=== PATIENT | female | born 1955 | race Caucasian/White ===

== ENCOUNTER 2017-07-08 14:30 | Outpatient (RCR) | payer OTHER, SELFPAY | END 2017-07-08 14:31 | disposition home or self-care (01) | LOC: PT 14:30 | PROVIDERS: Visit Provider Anesthesiology Pain Medicine | DX: M71.30 Other bursal cyst, unspecified site (principal); M54.5 Low back pain | CPT/HCPCS: 97010; 97014; 97110; G0283 ==

== ENCOUNTER 2017-11-02 15:00 | Outpatient (RCR) | payer OTHER, SELFPAY | END 2017-11-02 15:01 | disposition home or self-care (01) | LOC: PT 15:00 | PROVIDERS: Visit Provider Anesthesiology Pain Medicine | DX: M46.96 Unspecified inflammatory spondylopathy, lumbar region (principal); M51.36 Other intervertebral disc degeneration, lumbar region | CPT/HCPCS: 97010; 97012; 97014; 97110; 97164; G0283 ==

== ENCOUNTER → 2017-11-28 15:07 | Outpatient (POV) | payer OTHER, SELFPAY | PROVIDERS: Visit Provider Physician Assistant | DX: Z00.00 Encounter for general adult medical examination without abnormal findings (principal) ==

== ENCOUNTER → 2018-10-24 13:06 | Outpatient (POV) | payer OTHER, SELFPAY | PROVIDERS: Visit Provider Dermatology | DX: Z00.00 Encounter for general adult medical examination without abnormal findings (principal) ==

== ENCOUNTER 2019-06-11 09:30 | Outpatient (RCR) | payer OTHER, SELFPAY | END 2019-06-11 09:35 | disposition home or self-care (01) | LOC: PT 09:30 | PROVIDERS: Visit Provider Internal Medicine | DX: M54.5 Low back pain (principal) | CPT/HCPCS: 97110; 97163 ==

== ENCOUNTER 2019-11-22 14:00 | Outpatient (RCR) | payer MEDICARE, SELFPAY | END 2019-11-22 14:05 | disposition home or self-care (01) | LOC: PT 14:00 | PROVIDERS: PCP Internal Medicine; Visit Provider Internal Medicine | DX: M54.5 Low back pain (principal) | CPT/HCPCS: 97010; 97012; 97014; 97110; 97163; G0283 ==

== ENCOUNTER 2019-12-10 17:27 | Emergency (ER) | payer MEDICARE, SELFPAY ==
[2019-12-10 17:36] VITALS: BP 156/80; PULSE 64; RESP 18; TEMP 36.6; O2SAT 100; BMI 25.7
[2019-12-10 18:26] LABS: Microscopic, Urine URINE MICROSCOPIC (MICROSCOPIC)
[2019-12-10 18:43] LABS: Appearance,Urine CLEAR (Clear); Bilirubin,Urine Negative (Negative); Blood, Urine Negative (Negative); Color,Urine YELLOW (Yellow); Glucose,Urine (UA) Negative (Negative); Ketones,Urine 1+ (Negative); Leukocyte Esterase,Urine Negative (Negative); Nitrate,Urine Negative (Negative); Protein,Urine Negative (Negative); Specific Gravity, Urine <= 1.005 (1.005-1.030); Urobilinogen,Urine 0.2 EU/dl (0.2)
--- NOTE | 2019-12-10 19:01 | PC.NURSE ---
per registration pt complained that doctor hasnt been in the room. rosendo fernandez talked to pt and told him she let the doctor know the pt wanted to be discharged.
--- NOTE | 2019-12-10 19:05 | PC.NURSE ---
Dr Goncalves at bedside
--- NOTE | 2019-12-10 19:13 | HMH.EDUROGF ---
ED Disposition Clinical Impression: Acute urinary retention Disposition: Home, Self-Care Condition on Discharge: Good Instructions: DI for Urinary Tract Infection (UTI), DI for Urinary Tract Infection in Children Referrals: Js Jack MD [Primary Care Provider] - - Critical Care Critical Care Time: No Attestation: On 12/10/19, the high probability of a clinically significant, sudden or life threatening deterioration of the following system(s) required my full and direct attention, intervention and personal management. The time I documented below is in addition to time spent performing reported procedures but includes the following listed in this critical care notation. Medical Decision Making - Medical Records Medical records reviewed: Yes: I reviewed the patient's medical records. - Boo Inquiry Pt receiving controlled substance: No Vital Signs: 12/10/19 17:36 Temperature 97.8 F Temperature Source Oral Pulse Rate [Right Radial] 64 Respiratory Rate 18 Blood Pressure [Right Arm] 156/80 H Blood Pressure Mean [Right Arm] 105 Blood Pressure Source [Right Arm] Automatic Cuff Blood Pressure Position [Right Arm] Sitting 02 Sat by Pulse Oximetry 100 Oxygen Delivery Method Room Air - Lab Data Lab results reviewed: Yes: I reviewed the patient's lab results. Lab Results 12/10/19 18:15: Urine Color Yellow, Urine Appearance Clear, Urine pH 7.0, Ur Specific [place] <= 1.005, Urine Protein Negative, Urine Glucose (UA) Negative, Urine Ketones 1+, Urine Blood Negative, Urine Nitrate Negative, Urine Bilirubin Negative, Urine Urobilinogen 0.2, Ur Leukocyte Esterase Negative Orders (Tests/Meds): ORDERS Category Date Time Status Urinalysis and Microscopic Stat Lab 12/10/19 18:15 Results - CT Data CT Scan: Other (Hip) Time Received: 18:00 Preliminary Findings: Normal/NAD, Abnormal Female Urogenital HPI - General Chief complaint: Urogenital-Female Stated complaint: BACK sURG THIS MORNING, CANNOT UNINEATE Time Seen by Provider: 12/10/19 19:11 Mode of Arrival: Ambulatory Source of Information: Patient Limitations: No Limitations Description of Symptoms (Recalled from ER Triage Doc. by RN): Pt reports she had back surgery this morning, states she was able to dribble when she was being discharged but has been unable to urinate since then. Pt reports has had this happen before and had to have a catheter for 2 weeks - History of Present Illness HPI Narrative: 64-year-old female presents the ED with an acute urinary retention. She had a surgical procedure this morning and she has not been able to use the bathroom since. She states she has had this reaction in the past. Patient denies any other acute issues. HPIPatient denies any recent cough or shortness of breath, patient denies any sore throat or headache, patient denies any loss of taste or smell, patient denies any malaise or fatigue, patient denies any abdominal pain nausea vomiting or diarrhea. : no - Related Data Home Medications Medication Instructions Recorded Confirmed Aspirin [Aspir 81] 81 mg PO DAILY 04/21/19 04/21/19 Esomeprazole Magnesium [Nexium] 20 mg PO TID 04/21/19 04/21/19 Estradiol/Levonorgestrel [Climara 1 each TD WEEKLY 04/21/19 04/21/19 Pro Patch] Linaclotide [Linzess] 145 mcg PO DAILY 04/21/19 04/21/19 Losartan Potassium [Cozaar 50mg 50 mg PO DAILY 04/21/19 04/21/19 Tablets] Metoprolol Succinate 50 mg PO DAILY 04/21/19 04/21/19 Rosuvastatin Calcium 20 mg PO DAILY 04/21/19 04/21/19 hydrOXYzine HCL [Hydroxyzine HCl] 25 mg PO HS 04/21/19 04/21/19 Allergies Allergy/AdvReac Type Severity Reaction Status Date / Time eszopiclone [From Lunesta] Allergy Verified 04/21/19 10:34 [facility] History - Hepatitis A Screen Drug use history?: No High risk sexual behaviors?: No History of sexually transmitted infection?: No Currently employed?: No Childcare worker?: No Do you have indoor plumbin
[2019-12-10 19:17] LABS: Bacteria,Urine Trace /lpf; Squamous Epithelial Cell,Urine Occasional #/hpf (0-5); WBC,Urine Occasional #/hpf (0-3)
[2019-12-10 19:21] VITALS: BP 147/83; PULSE 62; RESP 16; TEMP 36.6; O2SAT 100
--- NOTE | 2019-12-10 19:24 | PC.NURSE ---
pt and instructed on norton catheter care and how to properly empty it at home. pt and also educated on how to properly switch to a leg bag if needed and how to remove the catheter after 5 days. pt instructed to return to ER if she has any worsening pain or needs assistance taking norton out.
== END 2019-12-10 19:26 | disposition home or self-care (01) ==
PROVIDERS: Emergency Provider Family Medicine; PCP Internal Medicine
DX: R33.0 Drug induced retention of urine (principal); Z88.8 Allergy status to other drugs, medicaments and biological substances
CPT/HCPCS: 81001; 99283; 99284

== ENCOUNTER → 2020-01-01 13:52 | Outpatient (POV) | payer MEDICARE, SELFPAY | PROVIDERS: PCP Internal Medicine; Visit Provider Dermatology | DX: Z00.00 Encounter for general adult medical examination without abnormal findings (principal) ==

== ENCOUNTER 2020-05-20 14:00 | Outpatient (RCR) | payer MEDICARE, SELFPAY | END 2020-05-20 14:05 | disposition home or self-care (01) | LOC: PT 14:00 | PROVIDERS: PCP Internal Medicine; Visit Provider Physician Assistant | DX: M51.16 Intervertebral disc disorders with radiculopathy, lumbar region (principal); M47.816 Spondylosis without myelopathy or radiculopathy, lumbar region | CPT/HCPCS: 20560; 97010; 97014; 97035; 97110; 97113; 97163; 97164; G0283 ==

== ENCOUNTER → 2020-09-30 10:40 | Outpatient (POV) | payer MEDICARE, SELFPAY | PROVIDERS: Visit Provider Dermatology | DX: Z00.00 Encounter for general adult medical examination without abnormal findings (principal) ==

== ENCOUNTER 2020-12-04 15:00 | Outpatient (RCR) | payer MEDICARE, SELFPAY | END 2020-12-04 15:05 | disposition home or self-care (01) | LOC: PT 15:00 | PROVIDERS: PCP Internal Medicine; Visit Provider Anesthesiology Pain Medicine | DX: M51.36 Other intervertebral disc degeneration, lumbar region (principal); M54.5 Low back pain | CPT/HCPCS: 97110; 97163; 97164 ==

== ENCOUNTER 2021-03-26 15:00 | Outpatient (RCR) | payer MEDICARE, SELFPAY ==
--- NOTE | 2021-03-26 15:49 | HMH.PTOPEV ---
PT Outpatient Evaluation Rehab PT Outpatient Evaluation Start: 01/22/21 14:59 Freq: Status: Active Protocol: Document 01/22/21 15:14 [email or web address] (Rec: 01/22/21 16:36 SAMI [id number]) Electronically Signed By Payam Ardon PT 01/22/21 15:14 Outpatient Therapy Subjective History Subjective History This is the initial Physical Therapy evaluation for Bianca Berrios. Pt is a 65 y/o female referred to PT for lumbar strengthening and pain relief s/p PRP injection. Pt reports he injection was ~ 16 of January. Pt reports she was to begin therapy on Tuesday but was unable to get in, and had severe nausea and vomiting on tuesday, which caused delay in eval until today. Pt has long history of surgical intervention in lumbar area including cyst removal and micro-discectomy. Pt has had epidural, steroid and now PRP injxn. Chief Complaint Pain,Stiff,Weakness Symptom Type Ache,Sharp,Burning,Numbness Symptoms Relieved By Rest/Positioning Symptoms Aggravated By Standing,Physical Activity Current Functional Limitations Housework,Standing,Recreation Activity,Walking Level of pain today (0-10) 4 Pain scale - at its best (0-10) 4 Pain scale - at its worst (0-10) 8 Lumbopelvic Eval Posture Lumbar Spine Posture Standing Position Flattened Assistive device Assistive Devices None / NA Palapation tenderness bilateral lumbar spinal tenderness Yes paraspinal tenderness Yes buttock tenderness Yes Lumbar/Sacral Palpation Findings Tenderness,Spasm,Trigger Point Range of Motion Lumbar Spine Active Flexion Range of 80 Motion (degrees) Lumbar Spine Active Extension Range of 10 Motion (degrees) Left Lumbar Spine Lateral Flexion Active 0 Range of Motion (degrees) Right Lumbar Spine Lateral Flexion 0 Active Range of Motion (degrees) Lumbar Spine ROM Limitations Soft Tissue Tightness Special Tests Lumbar Spine Screen Positive Hip Piriformis Test Positive Right Sciatic Nerve Tension Test Positive Left,Positive Right Unilateral Straight Leg Raise (Lasegue) Positive Left,Positive Right Test Lumbar Long [place] Distraction Test/Manual Positive Traction O
== END 2021-03-26 15:05 | disposition home or self-care (01) ==
LOC: PT 15:00
PROVIDERS: PCP Internal Medicine; Visit Provider Anesthesiology Pain Medicine
DX: M47.817 Spondylosis without myelopathy or radiculopathy, lumbosacral region (principal); M48.062 Spinal stenosis, lumbar region with neurogenic claudication; M51.9 Unspecified thoracic, thoracolumbar and lumbosacral intervertebral disc disorder
CPT/HCPCS: 20560; 20561; 97010; 97014; 97033; 97035; 97110; 97140; 97163; 97164; 97535; G0283

== ENCOUNTER → 2021-04-02 19:35 | Outpatient (CLI) | payer MEDICARE, SELFPAY | PROVIDERS: Visit Provider Nurse Practitioner Family | DX: Z20.822 Contact with and (suspected) exposure to COVID-19 (principal) | CPT/HCPCS: C9803; U0003; U0005 ==

== ENCOUNTER → 2021-08-28 13:43 | Outpatient (CLI) | payer MEDICARE, SELFPAY ==
--- NOTE | 2021-08-28 13:51 | CT_ITS ---
FINAL REPORT TECHNIQUE: Axial images were obtained from the lung apex to the mid abdomen by computed tomography utilizing a high-resolution protocol. Coronal reformatted images were obtained. This study was performed with techniques to keep radiation doses as low as reasonably achievable, (ALARA). Individualized dose reduction techniques using automated exposure control or adjustment of mA and/or kV according to the patient''s size were employed. CLINICAL HISTORY: COUGH, chronic, non smoker FINDINGS: There is no axillary mass or adenopathy. There are numerous partially calcified and enlarged hilar and mediastinal lymph nodes which is likely sequela of prior granulomatous disease. The esophagus is air-filled of uncertain significance but may represent reflux. Heart size is normal. There is no pericardial or pleural effusion. Limited images of the upper abdomen demonstrate multiple calcified granulomas in the liver and spleen. There are multiple small bilateral pulmonary nodules. Some of these are ground-glass nodules. There is a ground-glass nodule in the lateral right upper lobe on image 17. There is a 4 mm nodule in the left lower lobe on image 27. There are multiple other small nodules. There are mild changes of emphysema. There is no evidence of interstitial lung disease. There is no evidence of bronchiectasis. There is mild diffuse bronchial wall thickening consistent with bronchitis. IMPRESSION: Diffuse bronchial wall thickening consistent with bronchitis. Multiple calcified hilar and mediastinal lymph nodes, likely sequela of prior granulomatous disease. Multiple small pulmonary nodules, favor benign. Consider follow-up CT in 12 months. Reviewed, Interpreted and Dictated by Yuniel Williamson III, MD Transcribed by Lizy Morgan Authenticated by Yuniel Williamson III, MD on 08/28/2021 03:28:14 PM [facility]
[2021-08-28 14:48] LABS: Basophils % 0.6 % (0.1-2.0); Eosinophils # 0.1 K/mm3 (0.0-0.4); Eosinophils % 1.1 % (0.1-12.0); Hematocrit 32.4 % (37.0-47.0); Lymphocytes # 1.2 K/mm3 (0.7-4.5); Lymphocytes % 20.6 % (10-50); Mean Corpuscular Hemoglobin 23.8 pg (27.0-31.2); Mean Platelet Volume 8.2 fl (7.4-10.4); Monocytes # 0.4 K/mm3 (0.1-1.0); Monocytes % 6.4 % (1.7-9.3); Neutrophils # 4.3 K/mm3 (1.8-7.8); Neutrophils % 71.2 % (37.0-80.0); Platelet Count 339 K/mm3 (142-424); Red Blood Count 4.21 M/mm3 (4.20-5.40); Red Cell Distribution Width 17.2 % (11.5-17.5)
[2021-08-28 16:44] LABS: Iron 109 ug/dL (37-170)
[2021-08-28 16:53] LABS: Total Iron Binding Capacity 411 ug/dL (265-497)
== END ==
PROVIDERS: Nurse Practitioner Family; PCP Internal Medicine; Visit Provider Internal Medicine
DX: E83.10 Disorder of iron metabolism, unspecified (principal); G25.81 Restless legs syndrome; G47.33 Obstructive sleep apnea (adult) (pediatric)
CPT/HCPCS: 36415; 71250; 83540; 83550; 85025

== ENCOUNTER → 2021-12-01 12:48 | Outpatient (CLI) | payer MEDICARE, SELFPAY ==
--- NOTE | 2021-12-01 12:49 | FL_ITS ---
FINAL REPORT CLINICAL HISTORY: 1.15 fluoro time aspiration eveluation FINDINGS: MODIFIED BARIUM SWALLOW History: Dysphagia. FINDINGS: Fluoroscopy was provided for the speech pathologist to evaluate the swallowing mechanism. The patient was given several different consistencies of barium while the swallow was visualized fluoroscopically. The report of the speech pathologist should be consulted prior to making dietary decisions. FLUOROSCOPY TIME: 1 minute 15 seconds of fluoroscopy time was utilized. 12 cine runs were obtained IMPRESSION: Modified barium swallow under fluoroscopic guidance. Please see the report of the speech pathologist for more detail. Films reviewed , interpreted and dictated by Dr. Williamson. Transcribed by Kenn Murcia PA-C. Reviewed, Interpreted and Dictated by Yuniel [place] III, MD Transcribed by HERMELINDO Hooks Authenticated and [facility]
--- NOTE | 2021-12-01 13:39 | HMH.SLMBS2 ---
Speech & Language Evaluation Speech/Language Mod Barium Swallow Start: 12/01/21 13:26 Freq: once Status: Complete Protocol: Document 12/01/21 13:26 RITA (Rec: 12/01/21 13:38 CWADRIAN [id number]) General Information General Current Food Consistency Regular,Thin Liquids Dentition Good Dentition Oxygen Status Room Air Facial Symmetry Symmetrical Ability to Follow Directions Excellent Communication Ability No Impairment MBS Recommendations Diet Dietary Recommendations Regular,Thin Liquids Treatment/Strategies Strategy/Precaution Recommend Sitting Upright (90 deg),Small Bites and Sips,Alternate Liquids/Solids Referrals/Other Recommended Referrals GI Consult Mod Barium Swallow Impressions Summary and Impressions Oral Phase Impression No Impairment (WFL) Oral Phase Summary Adequate mastication noted with all consistencies trialed . No oral residue was present and patient demonstrated oral transit that is WFL. Pharyngeal Phase Impression Minimal Impairment Pharyngeal Phase Summary No aspiration or penetration was present on the study. Minimal diffuse pharyngeal residue was noted with thin liquids, however, patient is able to clear material independently with subsequent swallows. Pt was coughing throughout the study with and without PO trials, and is unrelated to swallow function. Hyolanryngeal movement is WFL . Speech/Language MBS Assessment/Goals/Plan Assessment Date of Evaluation: 12/01/21 Evaluation Type Initial Certification Assessment/Problems Pt coughing while eating. Does Patient Qualify for Service No Qualify/Failure Comment Based on the results of the MBSS, pt presents with an oropharyngeal swallow that is WFL. No further skilled speech therapy services are warranted at this time. Recommendations PHYSICIAN CERTIFICATION: The specified therapy services are required, authorized, and reviewed every 30 days. Diet Recommendations Normal Liquid Type Recommendations Normal/Thin SL Swallow Guidelines Alt bite w/sip thru meal, Reflux precautions Dysp
== END ==
PROVIDERS: PCP Internal Medicine; Visit Provider Internal Medicine Pulmonary Disease
DX: R05.3 Chronic cough (principal)
CPT/HCPCS: 70371; 92611

== ENCOUNTER → 2021-12-21 13:46 | Outpatient (CLI) | payer MEDICARE, SELFPAY ==
--- NOTE | 2021-12-21 13:50 | XR_ITS ---
FINAL REPORT CLINICAL HISTORY: pain x 1 yr, NKT FINDINGS: 3 views of the left foot were obtained. There is no acute fracture or dislocation. There is an accessory navicular. There are moderate hypertrophic changes at the 1st MTP joint. The soft tissues are unremarkable. IMPRESSION: No acute process. Reviewed, Interpreted and Dictated by Hans Jennings MD Transcribed by Jairo Dallas Authenticated and . [facility]
--- NOTE | 2021-12-21 13:50 | XR_ITS ---
FINAL REPORT CLINICAL HISTORY: pain x 1 yr, NKT. FINDINGS: 3 views of the right foot were obtained. There is no acute fracture or dislocation. There is an accessory navicular. There are moderate hypertrophic changes at the 1st MTP joint. The soft tissues are unremarkable. IMPRESSION: No acute process. Reviewed, Interpreted and Dictated by Hans Jennings MD Transcribed by Jairo Dallas Authenticated and [facility]
== END ==
PROVIDERS: PCP Internal Medicine; Visit Provider Podiatrist
DX: M79.672 Pain in left foot (principal); M79.671 Pain in right foot
CPT/HCPCS: 73630

== ENCOUNTER → 2021-12-30 20:19 | Outpatient (CLI) | payer MEDICARE, SELFPAY | PROVIDERS: PCP Internal Medicine; Visit Provider Nurse Practitioner Family | DX: G47.33 Obstructive sleep apnea (adult) (pediatric) (principal); G25.81 Restless legs syndrome; G47.34 Idiopathic sleep related nonobstructive alveolar hypoventilation; R05.3 Chronic cough | CPT/HCPCS: 95811 ==

== ENCOUNTER → 2022-01-19 12:59 | Outpatient (POV) | payer MEDICARE, SELFPAY | PROVIDERS: Visit Provider Dermatology | DX: Z00.00 Encounter for general adult medical examination without abnormal findings (principal) ==

== ENCOUNTER → 2022-01-29 09:08 | Outpatient (CLI) | payer MEDICARE, SELFPAY ==
--- NOTE | 2022-01-29 09:13 | XR_ITS ---
FINAL REPORT CLINICAL HISTORY: left shoulder pain. no trauma FINDINGS: LEFT SHOULDER Three views demonstrate no acute fracture or dislocation. There are mild degenerative changes of the acromioclavicular and the glenohumeral joints. The visualized bony structures are well aligned. No soft tissue abnormality is seen. IMPRESSION: Mild degenerative change. Reviewed, Interpreted and Dictated by Yuniel Williamson III, MD Transcribed by Jairo Dallas Authenticated and [facility]
== END ==
PROVIDERS: PCP Internal Medicine; Visit Provider Orthopaedic Surgery
DX: M25.512 Pain in left shoulder (principal)
CPT/HCPCS: 73030

== ENCOUNTER 2022-02-16 14:00 | Outpatient (RCR) | payer MEDICARE, SELFPAY ==
--- NOTE | 2022-02-01 11:28 | HMH.OTOPEV ---
OT Inpatient Evaluation Rehab OT Outpatient Eval Start: 02/01/22 10:56 Freq: Status: Active Protocol: Document 02/01/22 10:56 SYDNI (Rec: 02/01/22 11:28 SYDNI [id number]) Electronically Signed By Diya Urrutia OT 02/01/22 10:56 Outpatient Therapy Subjective History Subjective History 66 year old female referred to skilled OP OT services for left shoulder pain. Patient stated to have pain in the left shoulder for the past 3-4 weeks with it progressively getting worse. X-ray completed on 01/29/22 wtih mild degenerative changes noted. EMG eval for lumbar radiculopathy is planned 2* to having pain in R hip as well. No shot injections to left shoulder at this time. Chief Complaint Pain,Weakness Symptom Type Ache,Throb Symptoms Relieved By OTC Meds Symptoms Aggravated By Physical Activity Prior Functional Limitations None Current Functional Limitations Reaching,Lifting,Recreation Activity Symptom Description Constant and Continuous Level of pain today (0-10) 0 Pain scale - at its best (0-10) 0 Pain scale - at its worst (0-10) 7 Shoulder/Elbow Eval Shoulder Objective Measurements Shoulder ROM Left Shoulder Abduction Active Range of 78 Motion (degrees) Shoulder Flexion Active Range of Motion 130 (degrees) Query Text: Shoulder External Rotation Active Range 40 of Motion (degrees) Shoulder Internal Rotation Active Range 50 of Motion (degrees) pain with active ROM shoulder exam left standard Shoulder MMT Shoulder Abduction Strength Grade 3- Fair- Shoulder Extension Strength Grade 3- Fair- Shoulder Flexion Strength Grade 3- Fair- Shoulder Horizontal Abduction Strength 3- Fair- Grade Shoulder Horizontal Adduction Strength 3- Fair- Grade Infraspinatus/Teres Minor Strength Grade 3- Fair- Shoulder External Rotation Strength 3- Fair- Grade Shoulder Internal Rotation Strength 3- Fair- Grade Shoulder Special Tests impingement sign present shoulder exam left standard Shoulder Empty Can (Supraspinatus) Test Positive Left Shoulder [place]-Kahlil Impingement Positive Left Test Elbow Objective Measurements OT Outpatient Assessment Impairm
== END 2022-02-16 14:05 | disposition home or self-care (01) ==
LOC: OT 14:00
PROVIDERS: Visit Provider Orthopaedic Surgery
DX: M25.512 Pain in left shoulder (principal)
CPT/HCPCS: 97010; 97014; 97035; 97140; 97165; 97530; G0283

== ENCOUNTER → 2022-04-15 15:27 | Outpatient (CLI) | payer MEDICARE, SELFPAY ==
--- NOTE | 2022-04-15 15:27 | MR_ITS ---
PROCEDURE INFORMATION: Exam: MR Left Upper Extremity Joint Without Contrast; Shoulder Exam date and time: 04/15/2022 4:04 PM Age: 66 years old Clinical indication: Pain; Shoulder; Left; Additional info: Lt shoulder pain. Limited rom. No injury TECHNIQUE: Imaging protocol: Magnetic resonance imaging of the Left upper extremity without contrast. Exam focused on the shoulder. COMPARISON: CR XR SHOULDER LT MIN 2V 01/29/2022 9:21 AM FINDINGS: Bones and cartilage: The undersurface of the acromion has a normal curvature, consistent with a type II acromion. There is no acute fracture or dislocation. No aggressive bone lesions are present. Benign subchondral cysts involve the humeral head. There is no acute fracture or dislocation. No aggressive bone lesions are present. Joint spaces: There is mild primary osteoarthritis of the acromioclavicular joint. A mild effusion involves the glenohumeral joint. Joint fluid extends through the full thickness rotator cuff tear into the subacromial-subdeltoid bursa. Glenoid labrum: No convincing tear on this non-arthrographic study. Supraspinatus tendon: High-grade partial-thickness tearing involves the articular surface of the supraspinatus tendon. Deep fibers are delaminated and retracted approximately 2.6 cm There is severe tendinosis of the intact remaining bursal fibers. Infraspinatus tendon: A full-thickness tear involves the superior aspect of the infraspinatus tendon. The tear measures 9 mm anterior to posterior with 1.7 cm retraction from the insertion. Moderate tendinosis involves the remainder of the infraspinatus tendon. Subscapularis tendon: Moderate tendinosis involves the subscapularis tendon. Teres minor tendon: No tear or significant tendinosis involves the teres minor tendon. Tendon of biceps brachii: Moderate tendinosis involves the intra-articular portion of the long head of the biceps tendon. Glenohumeral ligaments: Unremarkable as visualized. Muscles: The rotator cuff musculature demonstrates no significant edema or atrophy. Soft tissues: No focal fluid collection or suspicious mass. IMPRESSION: 1. Full-thickness infraspinatus tendon tear measuring 9 mm in diameter with 1.7 cm retraction and no muscle atrophy. 2. High-grade partial-thickness tearing of the supraspinatus tendon articular surface with retraction of the delaminated deep fibers approximately 2.6 cm. 3. Moderate tendinosis of the subscapularis and long head of the biceps tendons. 4. Mild primary osteoarthritis of the acromioclavicular joint.
--- NOTE | 2022-04-15 15:27 | MR_ITS ---
PROCEDURE INFORMATION: Exam: MR Lumbar Spine Without Contrast Exam date and time: 04/15/2022 4:04 PM Age: 66 years old Clinical indication: Low back pain; Additional info: Back pain. With pain down right leg. TECHNIQUE: Imaging protocol: Magnetic resonance imaging of the lumbar spine without contrast. COMPARISON: CT ABDOMEN PELVIS W CON 04/21/2019 12:18 PM FINDINGS: conus terminates at the mid aspect of L1. Soft tissues are unremarkable. Annular disk bulge and/or protrusions diffusely 15 degree levocurvature centered at L3 Neural foraminal narrowing L3-L4 on the right greater than left Reactive degenerative endplate changes L3-L4 and L2-L3 Marrow edema L3-L4 and L2-L3 T11-T12: Central canal and neural foramina are normal. T12-L1: Central canal and neural foramina are normal. L1-L2: Broad-based annular disc bulge effaces the anterior aspect of the thecal sac mildly so. Central canal is normal. L2-L3: Broad-based annular disc bulge effaces the anterior aspect of the thecal sac mildly so. Central canal and neural foramina are normal. L3-L4: Moderate degree of central canal narrowing secondary to facet hypertrophic changes, ligamentum flavum hypertrophic changes, and a broad-based annular bulge. Disc lateralizes to the right greater than left. Neural foraminal narrowing bilaterally L4-L5: Broad-based annular disc bulge effaces the anterior aspect of the thecal sac mildly so. Central canal and neural foramina are normal. L5-S1: Central canal and neural foramina are normal. IMPRESSION: Multilevel degenerative disc disease including moderate central canal narrowing L3-L4. Levoscoliosis 15 degrees centered at L3. Reactive endplate changes/marrow edema L3-L4 and L2-L3
== END ==
PROVIDERS: PCP Internal Medicine; Visit Provider Orthopaedic Surgery
DX: M19.012 Primary osteoarthritis, left shoulder (principal); M54.16 Radiculopathy, lumbar region; M54.50 Low back pain, unspecified
CPT/HCPCS: 72148; 73221; 76376

== ENCOUNTER → 2022-08-20 06:15 | Outpatient (CLI) | payer MEDICARE, SELFPAY ==
--- NOTE | 2022-08-20 06:34 | CT_ITS ---
FINAL REPORT TECHNIQUE: Thin section axial CT images of the facial bones and sinuses were obtained without contrast. Coronal reformatted images were also obtained.This study was performed with techniques to keep radiation doses as low as reasonably achievable, (ALARA). Individualized dose reduction techniques using automated exposure control or adjustment of mA and/or kV according to the patient''''s size were employed. CLINICAL HISTORY: CHRONIC SINUSITIS FINDINGS: There is bilateral sphenoid sinus mucosal thickening. No fluid levels are identified. The ostiomeatal units have an unremarkable appearance. The nasal septum is in the midline. No fracture or acute bony abnormality is identified. IMPRESSION: Mucosal thickening of the sphenoid sinuses, otherwise unremarkable exam. Reviewed, Interpreted and Dictated by Yuniel [place] III, MD Transcribed by Carolina Milligan Authenticated and [facility]
== END ==
PROVIDERS: PCP Internal Medicine; Visit Provider Internal Medicine
DX: J32.9 Chronic sinusitis, unspecified (principal)
CPT/HCPCS: 70486

== ENCOUNTER → 2022-09-06 11:52 | Outpatient (CLI) | payer MEDICARE, SELFPAY ==
[2022-09-06 12:27] LABS: Anion Gap 7.3 mEq/L (5-15); Aspartate Amino Transferase 35 U/L (14-36); Blood Urea Nitrogen 16 mg/dl (7-17); Calcium 8.5 mg/dl (8.4-10.2); Carbon Dioxide 32 mmol/L (22.0-30.0); Chloride 95 mmol/L (98-107); Estimated Glomerular Filt Rate 83 ml/min (>60); GFR (African American) 101 ML/MIN (>60); Glucose 100 mg/dl (74-100); Potassium 4.3 mmoL/L (3.5-5.1); Sodium 130 mmol/L (136-145)
[2022-09-06 12:56] LABS: Iron 39 ug/dL (37-170)
[2022-09-06 13:05] LABS: Total Iron Binding Capacity 309 ug/dL (265-497)
[2022-09-06 13:33] LABS: Ferritin 13.6 ng/ml (11.1-264)
[2022-09-14 05:14] LABS: Myeloperoxidase Antibody <0.2
== END ==
PROVIDERS: PCP Internal Medicine; Visit Provider Internal Medicine
DX: E61.1 Iron deficiency (principal); R89.9 Unspecified abnormal finding in specimens from other organs, systems and tissues; I10 Essential (primary) hypertension
CPT/HCPCS: 36415; 80048; 82728; 83520; 83540; 83550; 84450

== ENCOUNTER → 2022-10-04 13:51 | Outpatient (CLI) | payer MEDICARE, SELFPAY ==
[2022-10-04 17:00] LABS: Chloride 99 mmol/L (98-107); Potassium 4.3 mmoL/L (3.5-5.1); Sodium 132 mmol/L (136-145)
[2022-10-04 17:03] LABS: Blood Urea Nitrogen 15 mg/dl (7-17); Estimated Glomerular Filt Rate 83 ml/min (>60); GFR (African American) 101 ML/MIN (>60); Iron 51 ug/dL (37-170)
[2022-10-04 17:04] LABS: Anion Gap 9.3 mEq/L (5-15); Calcium 9.1 mg/dl (8.4-10.2); Carbon Dioxide 28 mmol/L (22.0-30.0); Glucose 92 mg/dl (74-100)
[2022-10-04 17:13] LABS: Total Iron Binding Capacity 294 ug/dL (265-497)
== END ==
PROVIDERS: PCP Internal Medicine; Visit Provider Internal Medicine
DX: E87.1 Hypo-osmolality and hyponatremia (principal); D64.9 Anemia, unspecified
CPT/HCPCS: 36415; 80048; 83540; 83550

== ENCOUNTER → 2022-11-23 11:46 | Outpatient (POV) | payer MEDICARE, SELFPAY | PROVIDERS: Visit Provider Dermatology | DX: Z00.00 Encounter for general adult medical examination without abnormal findings (principal) ==

== ENCOUNTER 2023-01-18 15:00 | Outpatient (RCR) | payer MEDICARE, SELFPAY | END 2023-01-18 15:05 | disposition home or self-care (01) | LOC: OT 15:00 | PROVIDERS: PCP Internal Medicine; Visit Provider Orthopaedic Surgery | DX: M75.22 Bicipital tendinitis, left shoulder (principal) | CPT/HCPCS: 97010; 97014; 97035; 97110; 97140; 97164; 97165; 97530; G0283 ==

== ENCOUNTER → 2023-03-29 09:55 | Outpatient (POV) | payer MEDICARE, SELFPAY | PROVIDERS: Visit Provider Dermatology | DX: Z00.00 Encounter for general adult medical examination without abnormal findings (principal) ==

== ENCOUNTER 2023-04-05 10:00 | Outpatient (RCR) | payer MEDICARE, SELFPAY | END 2023-04-05 10:05 | disposition home or self-care (01) | LOC: PT 10:00 | PROVIDERS: PCP Internal Medicine; Visit Provider Neurological Surgery | DX: M54.50 Low back pain, unspecified (principal); M54.9 Dorsalgia, unspecified; G89.29 Other chronic pain | CPT/HCPCS: 97010; 97014; 97035; 97110; 97140; 97163; 97164; 97530; 97535; G0283 ==

== ENCOUNTER → 2023-04-06 11:40 | Outpatient (CLI) | payer MEDICARE, SELFPAY ==
--- NOTE | 2023-04-06 11:46 | XR_ITS ---
FINAL REPORT CLINICAL HISTORY: CHRONIC COUGH COMPARISON: 05/01/2019 FINDINGS: Two views of the chest were obtained. The heart size and pulmonary vascularity are within normal limits. The mediastinum is normal. No acute pulmonary abnormality is identified. There is no pneumothorax. The bony thorax is intact. IMPRESSION: No active cardiopulmonary disease. Reviewed, Interpreted and Dictated by Yuniel Williamson III, MD Transcribed by Caro Pat Authenticated and [facility]
== END ==
PROVIDERS: PCP Internal Medicine; Visit Provider Internal Medicine
DX: R05.3 Chronic cough (principal)
CPT/HCPCS: 71046

== ENCOUNTER 2023-04-06 12:06 | Emergency (ER) | payer MEDICARE, SELFPAY ==
[2023-04-06 12:35] VITALS: BP 146/97; PULSE 73; RESP 18; TEMP 37.1; O2SAT 98; BMI 25.0
[2023-04-06 12:39] LABS: UTC Strep Screen (Rapid) Negative (Negative)
[2023-04-06 12:40] LABS: UTC Influenza A Antigen Negative (Negative); UTC Influenza B Antigen Negative (Negative)
--- NOTE | 2023-04-06 12:43 | EXP.UTC ---
Discharge Plan Disposition Patient Disposition: Home, Self-Care Condition: Good Prescriptions Prescriptions: New levofloxacin [levofloxacin] 500 mg tablet 500 mg PO DAILY Qty: 7 0RF methylprednisolone 4 mg Tablets,Dose Pack 4 mg PO DIRECTED Qty: 21 0RF benzonatate [benzonatate] 100 mg capsule 100 mg PO TIDP PRN (Reason: Cough) Qty: 30 0RF No Action metoprolol succinate 25 mg tablet extended release 24 hr 25 mg PO DAILY melatonin 5 mg capsule 5 mg PO HS multivitamin with iron [Daily Vitamin with Iron] Tablet 2 tab PO .COMPLEX Rx Instructions: 2 orally every other day; flinstone estradiol 0.05 mg/24 hr patch weekly 1 patch TP WEEKLY Patient Comments: APPLY 1 PATCH TO SKIN EVERY WEEK naproxen sodium [Aleve] 220 mg tablet 220 mg PO BID PRN Horizant 600 mg tablet extended release 600 mg PO HS Qty: 90 1RF Rx Instructions: administer daily at approximately 5 PM with food/evening meal rosuvastatin 20 MG tablet 20 mg PO DAILY Patient Comments: TAKE 1 TABLET BY MOUTH EVERY DAY AT BEDTIME esomeprazole magnesium 20 mg capsule,delayed release(DR/EC) See Rx Instructions PO .COMPLEX Rx Instructions: orally; 2 in the am,one at hs pantoprazole 40 mg tablet,delayed release (DR/EC) 40 mg PO DAILY Patient Comments: TAKE 1 TABLET BY MOUTH EVERY DAY mirtazapine 15 mg tablet 15 mg PO DAILY duloxetine 60 mg capsule,delayed release(DR/EC) 60 mg PO DAILY Patient Comments: TAKE 1 CAPSULE BY MOUTH EVERY DAY Referrals Follow up/Referrals: Js Jack MD [Primary Care Provider] - See instructions Activity Restrictions/Add. Instructions Additional Instructions/Restrictions: Drink plenty of fluids. Take tylenol or ibuprofen for pain or fever. Take the medications as directed. Follow up with your regular doctor within the next 48 hours. GO TO THE ER FOR ANY WORSENING SYMPTOMS Don't start the oral steroids until tomorrow, since you had the shot here today. Clinical Impressions Clinical Impression: Pneumonia Instructions Patient Instructions: Pneumonia-Adult Discharge ED Provider: Jorje Charles [facility] [place], [place] HPI General Stated complaint: cough, chest congestion, clark, fatigue Time Seen by Provider: 04/06/23 12:43 History of Present Illness Provider Complaint: She states that for the past 5 days she has had chest and sinus congestion. She came in today because she has had worsening fatigue. Related Data Home Medications Medication Instructions Recorded Confirmed rosuvastatin 20 mg tablet 20 mg PO DAILY Cholesterol 04/21/19 04/06/23 estradiol 0.05 mg/24 hr weekly 1 patch topical WEEKLY 12/21/21 04/06/23 transdermal patch metoprolol succinate 25 mg 25 mg PO DAILY 01/06/22 04/06/23 tablet,extended release 24 hr naproxen sodium 220 mg tablet 220 mg PO BID PRN 02/03/22 11/22/22 (Aleve) esomeprazole magnesium 20 mg See Rx Instructions PO .COMPLEX 09/30/22 11/22/22 capsule,delayed release GERD melatonin 5 mg capsule 5 mg PO HS 09/30/22 11/22/22 multivitamin with iron (Daily 2 tab PO .COMPLEX 09/30/22 11/22/22 Vitamin with Iron tablet) duloxetine 60 mg capsule,delayed 60 mg PO DAILY 04/06/23 04/06/23 release mirtazapine 15 mg tablet 15 mg PO DAILY 04/06/23 04/06/23 pantoprazole 40 mg tablet,delayed 40 mg PO DAILY 04/06/23 04/06/23 release Previous Rx's Medication Instructions Recorded gabapentin enacarbil 600 mg 600 mg PO HS #90 tabs 11/09/22 tablet,extended release (Horizant ER) benzonatate 100 mg capsule 100 mg PO TIDP PRN Cough #30 caps 04/06/23 levofloxacin 500 mg tablet 500 mg PO DAILY #7 tabs 04/06/23 methylprednisolone 4 mg tablets in 4 mg PO DIRECTED #21 tabs 04/06/23 a dose pack Allergies Allergy/AdvReac Type Severity Reaction Status Date / Time [facility] Allergy Verified 04/06/23 12:46 [facility] Disclaime
[2023-04-06 13:37] VITALS: BP 146/97; PULSE 73; RESP 18; TEMP 37.1; O2SAT 98
[2023-04-06 13:41] LABS: Adenovirus,PCR Not Detected (NotDetected); Bordetella Pertussis Not Detected (NotDetected); Chlamydophila Pneumoniae, PCR Not Detected (NotDetected); Coronavirus 19, PCR Not Detected (NotDetected); Coronavirus 229E Not Detected (NotDetected); Coronavirus NL63 Not Detected (NotDetected); Coronavirus OC43 Not Detected (NotDetected); Coronovirus HKU1,PCR Not Detected (NotDetected); Human Metapneumovirus Not Detected (NotDetected); Influenza A, PCR Not Detected (NotDetected); Influenza AH1, 2009 Not Detected (NotDetected); Influenza AH1, PCR Not Detected (NotDetected); Influenza AH3,PCR Not Detected (NotDetected); Influenza B, PCR Not Detected (NotDetected); Mycoplasma Pneumoniae, PCR Not Detected (NotDetected); Parainfluenza 1, PCR Not Detected (NotDetected); Parainfluenza 2, PCR Not Detected (NotDetected); Parainfluenza 3, PCR Not Detected (NotDetected); Parainfluenza 4, PCR Not Detected (NotDetected); Respiratory Syncytial Virus Not Detected (NotDetected); Rhinovirus/Enterovirus Not Detected (NotDetected)
== END 2023-04-06 13:37 | disposition home or self-care (01) ==
PROVIDERS: Emergency Provider Nurse Practitioner Family; PCP Internal Medicine
DX: J18.9 Pneumonia, unspecified organism (principal); R53.83 Other fatigue; R51.9 Headache, unspecified; F41.1 Generalized anxiety disorder; G47.33 Obstructive sleep apnea (adult) (pediatric); G25.81 Restless legs syndrome
CPT/HCPCS: 71046; 87581; 87632; 87635; 87798; 87804; 87880; 96372; 99204; 99212; G0463; J0696

== ENCOUNTER → 2023-04-07 09:23 | Outpatient (CLI) | payer MEDICARE, SELFPAY ==
--- NOTE | 2023-04-07 09:27 | MR_ITS ---
FINAL REPORT CLINICAL HISTORY: PRE PROCEDURAL EXAMINATION. PATIENT IS RECIEVING A SPINAL CORD STIMULATOR. COMPARISON: None FINDINGS: Multiplanar MR imaging of the thoracic spine was performed without contrast. On the sagittal T2-weighted images,disc degeneration is identified at multiple levels. There is no evidence of fracture. There is 25 degrees of levoscoliosis centered at the L2 level. There is right lateral subluxation of L1 on L2 approximately 10 mm. No bony mass is identified. The thoracic spinal cord has an unremarkable appearance without evidence of mass, edema or syrinx. On the axial images, multiple disc bulges are identified. At the T8-9-10 level there is a right paracentral disc protrusion which mildly indents the thecal sac but does not produce canal stenosis. The signal within the spinal cord is normal. There is no evidence of significant canal stenosis. No paraspinous soft tissue abnormality is seen. IMPRESSION: 25 degrees of levoscoliosis centered at the L2 level, with right lateral subluxation of L1 on L2 as described. T9-10 right paracentral disc protrusion which mildly indents the thecal sac. There is no evidence of canal stenosis at this or other levels. Reviewed, Interpreted and Dictated by Yuniel Williamson III, MD Transcribed by Fatou Smith Authenticated and [facility]
== END ==
PROVIDERS: PCP Internal Medicine; Visit Provider Anesthesiology Pain Medicine
DX: Z01.818 Encounter for other preprocedural examination (principal)
CPT/HCPCS: 72146

== ENCOUNTER → 2023-04-15 09:25 | Outpatient (CLI) | payer MEDICARE, SELFPAY ==
[2023-04-15 10:45] LABS: Basophils % 0.4 % (0.1-2.0); Eosinophils # 0.1 K/mm3 (0.0-0.4); Eosinophils % 1.8 % (0.1-12.0); Hemoglobin 14.8 g/dL (12.2-16.2); Lymphocytes # 1.1 K/mm3 (0.7-4.5); Lymphocytes % 14.6 % (10-50); Mean Corpuscular HGB Conc 33.7 g/dL (31.8-35.4); Mean Corpuscular Hemoglobin 31.6 pg (27.0-31.2); Mean Corpuscular Volume 93.8 fl (81-99); Mean Platelet Volume 7.2 fl (7.4-10.4); Monocytes # 0.5 K/mm3 (0.1-1.0); Monocytes % 6.2 % (1.7-9.3); Neutrophils # 5.9 K/mm3 (1.8-7.8); Neutrophils % 76.9 % (37.0-80.0); Platelet Count 314 K/mm3 (142-424); Red Blood Count 4.69 M/mm3 (4.20-5.40); White Blood Count 7.7 K/mm3 (4.8-10.8)
[2023-04-15 11:43] LABS: INR 0.99 (0.9-1.1); Prothrombin Time 10.7 seconds (10.1-12.5)
[2023-04-15 12:06] LABS: Activated Partial Thrombo Time 25.1 seconds (22.8-30.6)
== END ==
PROVIDERS: PCP Internal Medicine; Visit Provider Anesthesiology Pain Medicine
DX: Z01.818 Encounter for other preprocedural examination (principal); Z79.01 Long term (current) use of anticoagulants; M96.1 Postlaminectomy syndrome, not elsewhere classified
CPT/HCPCS: 36415; 85025; 85610; 85730

== ENCOUNTER 2024-01-24 12:37 | Outpatient (CLI) | payer MEDICARE, SELFPAY ==
--- NOTE | 2024-01-24 12:42 | XR_ITS ---
FINAL REPORT CLINICAL HISTORY: foot pain COMPARISON: 12/21/2021 FINDINGS: Right foot Three views were obtained. There is no acute fracture or dislocation. Hallux valgus deformity is identified. Mild degenerative changes are stable from previous. No soft tissue abnormality is identified. IMPRESSION: Mild degenerative changes. Reviewed, Interpreted and Dictated by Yuniel Williamson III, MD Transcribed by Caro Pat Authenticated and [facility]
--- NOTE | 2024-01-24 12:42 | XR_ITS ---
FINAL REPORT CLINICAL HISTORY: foot pain COMPARISON: 12/21/2021 FINDINGS: Left foot Three views were obtained. There is no acute fracture or dislocation. Hallux valgus deformity is identified. There are moderate degenerative changes of the 1st metatarsophalangeal joint. Mild degenerative changes are seen elsewhere. Findings are stable since previous. No soft tissue abnormality is identified. IMPRESSION: Stable degenerative changes. Reviewed, Interpreted and Dictated by Yuniel Williamson III, MD Transcribed by Caro Pat Authenticated and [facility]
--- NOTE | 2024-01-24 12:45 | XR_ITS ---
FINAL REPORT CLINICAL HISTORY: ASSESS LUMBAR STABILITY FINDINGS: LUMBAR SPINE WITH FLEXION AND EXTENSION Eight views demonstrate no acute fracture. There are moderate and severe degenerative changes. There is left lateral subluxation of L3 on 4 measuring 10 mm. Multilevel vacuum phenomenon is identified. There is no abnormal movement with flexion and extension maneuvers. IMPRESSION: Degenerative changes as detailed above. Reviewed, Interpreted and Dictated by Yuniel Williamson III, MD Transcribed by Caro Pat Authenticated and [facility]
== END 2024-01-24 23:59 | disposition home or self-care (01) ==
LOC: RAD 12:38
PROVIDERS: PCP Internal Medicine; Visit Provider Podiatrist
DX: M79.671 Pain in right foot (principal); M79.672 Pain in left foot; M96.1 Postlaminectomy syndrome, not elsewhere classified
CPT/HCPCS: 72110; 73630

== ENCOUNTER 2024-02-06 10:36 | Emergency (ER) | payer MEDICARE, SELFPAY ==
[2024-02-06 11:06] LABS: Apearance,Urine Cloudy (Clear); Color,Urine Yellow (Yellow); Specific Gravity, Urine 1.015 (1.005-1.030)
[2024-02-06 11:07] LABS: Bilirubin,Urine Negative (Negative); Blood, Urine 3+ (Negative); Glucose,Urine (UA) Negative (Negative); Ketones,Urine Negative (Negative); Protein,Urine 1+ (Negative); Urobilinogen,Urine 0.2 EU/dl (0.2)
[2024-02-06 11:08] LABS: UTC Leukocyte Esterase,Urine 3+ (Negative); UTC Nitrate,Urine Negative (Negative)
[2024-02-06 11:30] VITALS: BP 167/105; PULSE 66; RESP 16; TEMP 36.7; O2SAT 99; BMI 26.4
--- NOTE | 2024-02-06 11:40 | EXP.UTC ---
Discharge Plan Disposition Patient Disposition: Home, Self-Care Condition: Good Prescriptions Prescriptions: New nitrofurantoin monohyd/m-cryst [Macrobid] 100 mg capsule 100 mg PO Q12H 7 Days Qty: 14 0RF Rx Instructions: must administer with a meal/food phenazopyridine [Pyridium] 200 mg tablet 200 mg PO Q8H 2 Days Qty: 6 0RF No Action amlodipine 5 mg tablet 5 mg PO DAILY Patient Comments: TAKE 1 TABLET BY MOUTH EVERY DAY metoprolol succinate 50 mg tablet extended release 24 hr PO ONCE Patient Comments: TAKE 1 TABLET BY MOUTH DAILY Rheumate 1-1-500 mg capsule PO estradiol 0.05 mg/24 hr patch weekly 1 patch TP WEEKLY Patient Comments: APPLY 1 PATCH TO SKIN EVERY WEEK pyridoxine (vitamin B6) 100 mg tablet 100 mg PO DAILY Patient Comments: TAKE ONE TABLET BY MOUTH ONCE A DAY Horizant 600 mg tablet extended release 600 mg PO HS Qty: 90 1RF Rx Instructions: administer daily at approximately 5 PM with food/evening meal mirtazapine [Remeron] 15 mg tablet 7.5 mg PO DAILY Slow Fe 137 mg (45 mg iron) tablet extended release See Rx Instructions PO .COMPLEX Patient Comments: TAKE 1 TABLET BY MOUTH EVERY OTHER DAY Rx Instructions: 45mg orally; rosuvastatin 20 MG tablet 20 mg PO DAILY Patient Comments: TAKE 1 TABLET BY MOUTH EVERY DAY AT BEDTIME pantoprazole 40 mg tablet,delayed release (DR/EC) 40 mg PO DAILY Patient Comments: TAKE 1 TABLET BY MOUTH EVERY DAY duloxetine 60 mg capsule,delayed release(DR/EC) 60 mg PO DAILY Patient Comments: TAKE 1 CAPSULE BY MOUTH EVERY DAY Referrals Follow up/Referrals: Js Jack MD [Primary Care Provider] - See instructions Activity Restrictions/Add. Instructions Additional Instructions/Restrictions: *Increase fluids. Water not Soda or Tea *Start antibiotic immediately and be sure to take as ordered for the FULL length of time although you should start to see improvement over the next 48 hours *Pyridium as needed Remember this medication will turn your urine . This is normal but it will stain what ever it gets on *You should not use Pyridium for more than 48 hours. If so , follow up with your primary physician to review urine culture and ensure that antibiotic is adequate for infection *Be SURE to follow up anytime for new or worsening symptoms with your family doctor. AND in 48 hours for urine culture results with your family doctor, if you do not have a doctor then you may call back to the [facility] for urine culture results and further treatment. We do recommend that you choose and establish care with a Primary Care Physician. ?AND follow up with them ?in 10-14 days to repeat UA to ensure infection is resolved and blood no longer present *Be sure to let your PCP know that we sent urine cultures from the [facility] so they can follow up to ensure that you area the on the correct antibiotic Call your doctor office and make appointment for 48 hours (2 days from today) ?to follow up and get the results of your urine culture and further treatment Clinical Impressions Clinical Impression: UTI (urinary tract infection) Instructions Patient Instructions: DI for Urinary Tract Infection (UTI), Urinary Tract Infection, Nitrofurantoin Print Language Print Language: Sudanese Discharge ED Provider: Dominique Sloan [facility] [place] General Stated complaint: Pain and frequent urination Mode of Arrival: Ambulatory Source of Information: Patient Limitations: No Limitations Time Seen by Provider: 02/06/24 11:41 Description of Symptoms (Recalled from Triage Doc. by RN): Patient reports urinary frequency and burning with urination. HEENT Symptoms (Recalled from RN notes): No Resp Symptoms (Recalled from RN notes): No Skin Symptoms (Recalled from RN notes): No MS Symptoms (Recalled from RN notes): No Functional Status (Recalled from RN notes): wnl Roberto Carlos
[2024-02-06 12:07] VITALS: BP 167/105; PULSE 66; RESP 16; TEMP 36.7; O2SAT 99
--- NOTE | 2024-02-08 16:56 | PC.NURSE ---
REVIEWED URINE CULTURE WITH Kerry ODEN APRN. NO CHANGE NEEDED AT THIS TIME
== END 2024-02-06 12:08 | disposition home or self-care (01) ==
PROVIDERS: Emergency Provider Nurse Practitioner; PCP Internal Medicine
DX: N39.0 Urinary tract infection, site not specified (principal); B95.2 Enterococcus as the cause of diseases classified elsewhere; R30.0 Dysuria; R35.0 Frequency of micturition; R39.15 Urgency of urination
CPT/HCPCS: 81003; 87086; 87088; 87186; 99212; 99214; G0463

== ENCOUNTER 2024-02-17 15:00 | Outpatient (CLI) | payer MEDICARE, SELFPAY ==
[2024-02-17 15:09] LABS: Microscopic, Urine URINE MICROSCOPIC (MICROSCOPIC)
[2024-02-17 15:25] LABS: Appearance,Urine CLEAR (Clear); Bilirubin,Urine Negative (Negative); Blood, Urine Negative (Negative); Color,Urine YELLOW (Yellow); Glucose,Urine (UA) Negative (Negative); Ketones,Urine Negative (Negative); Leukocyte Esterase,Urine Negative (Negative); Nitrate,Urine Negative (Negative); Protein,Urine Negative (Negative); Urobilinogen,Urine 0.2 EU/dl (0.2)
[2024-02-17 15:35] LABS: Bacteria,Urine Trace /lpf; Squamous Epithelial Cell,Urine Occasional #/hpf (0-5)
== END 2024-02-17 23:59 | disposition home or self-care (01) ==
LOC: LAB 15:02
PROVIDERS: PCP Internal Medicine; Visit Provider Internal Medicine
DX: N39.0 Urinary tract infection, site not specified (principal)
CPT/HCPCS: 81001

== ENCOUNTER 2024-04-10 15:00 | Outpatient (RCR) | payer MEDICARE, SELFPAY | END 2024-04-10 23:59 | LOC: PT 15:00 | PROVIDERS: Visit Provider Anesthesiology Pain Medicine | DX: M96.1 Postlaminectomy syndrome, not elsewhere classified (principal) | CPT/HCPCS: 97014; 97113; 97163; 97164; G0283 ==

== ENCOUNTER 2024-11-02 13:58 | Outpatient (CLI) | payer MEDICARE, SELFPAY ==
--- OUTSIDE RECORDS SUMMARY | 2024-11-02 14:01 | XMS_ITS | Data Portability ---
Author Organization [facility] RICH ArambulaS NIKOLAI CLOSED Address [address] [facility] [address] [place] [address] Care Team Providers Care Steamer Operator Name Role Phone ANGEL LUIS MORA Referring Provider Assessment No assessment recorded. Plan of Treatment Reminders Order Date Submit Date Provider Last Modified By Organization Details Last Modified Time Details Appointments None recorded. Lab None recorded. Referral None recorded. Procedures None recorded. Surgeries None recorded. Imaging None recorded. Medication Orders cefdinir 300 mg capsule 2022 023 [id number], [address], [phone], 3 13:00:17 Flonase Allergy Relief 50 mcg/actuat ion nasal spray,susp ension 2022 023 [facility] #[id number], [address] [facility], [facility] [address] [place], [place], [phone], 3 13:00:16 Patient TargetsNo targets recorded. Patient InstructionsNo instructions recorded. Reason for Referral None Reported. Procedures Surgical History Date Name Laterality Status Provider Name and Address Organization Details Recorded Time 09/16/19 23 Nasolaryngoscopy completed DEXTER PABLO MD [address] [place], [address], [facility] 09/15/2022 12:59:43 hysterectomy completed Dann [facility] 09/15/2022 12:04:31 discectomy of spine completed Manfred [facility] 09/15/2022 12:04:49 partial repair of rotator cuff completed Dann Olivia [facility] 09/15/2022 12:05:01 Imaging Results None recorded. Procedure Notes None recorded. Medical Equipment None Reported. Allergies Allergen ID Allergen Name Allergen Category Reaction Reaction Severity Criticality Documentation Date Start Date Code Code System Note Provider Name and Address Organization Details Recorded Time [id number] Lunesta medicatio n facial swelling Not available high 09/15/2022 70259 4 RxNorm Dann Olivia [facility] 12:03:42 Medications Name Sig Start Date Stop Date Status Note LastModified by Organization Details LastModified Time Zoloft 50 mg tablet Take 1 tablet every day by oral route. active Not Available Not Available No t Available cefdinir 300 mg capsule Take 1 capsule every 12 hours by oral route for 21 days. 2022 active Not Available Not Available Not Avai lable rosuvasta tin 20 mg tablet Take 1 tablet every day by oral route. active Not Available Not Available No t Available Lipitor Every night at bedtime 09/15 completed Frequenc y: qhs;Medi cation Descript ion: atorvast atin; Dosage:1 ; Route:or al; refills: 0 Not Available Not Available Not Available atenolol 09/15 completed Alt Frequenc y: bid;Medi cation Descript ion: atenolol ; Dosage:1 ; refills: 0 Not Available Not Available Not Available Lyrica 09/15 completed Medicati on Descript ion: pregabal in; Route:or al; refills: 0 Not Available Not Available Not Available Dexilant 09/15 completed Medicati on Descript ion: dexlanso prazole; Route:or al; refills: 0 Not Available Not Available Not Available Horizant ER 600 mg tablet,ex tended release Take 1 tablet every day by oral route. active Not Available Not Available No t Available Flonase Allergy Relief 50 mcg/actua tion nasal spray,micah pension 2 sprays each nostril once daily 2022 active Not Available Not Available Not Avai lable Nexium 24HR 20 mg capsule,d elayed release Take 1 capsule every day by oral route. active Not Available Not Available No t Available metoprolo l succinate ER 25 mg capsule sprinkle, ext. release 24 hr Take 1 capsule every day by oral route. active Not Available Not Available No t Available Vitals Date Recorded Body height Body mass index (BMI) Body weight Heart rate Systolic blood pressure Diastolic blood pressure Provider Name and Address Organization Details Last Updated DateTime 3 165.1 cm 24.6 kg/m2 08810.6 7 g 58 /min 137 mm[Hg] 90 mm[Hg] Dann [facility] 3 12:09:13 Social History None recorded. Functional Status None recorded. Mental Status None recorded. Family History Nothing Reported. Medical History No medical history recorded. Gynecological HistoryNo gynecological history recorded. Obstetrics History GPAL:G 0 P 0 0 0 0 Past Encounters Encounter ID Performer Location Encounter Start Date Encounter Closed Date Diagnosis/Indication Diagnosis SNOMED-CT Code Diagnosis ICD10 Code Diagnosis Note [id number] DEXTER PABLO MD ENT [address] [place] [address] 09/15/2022 10:56:32 09/15/2022 13:01:20 Chronic sinusitis 54247350 J32.[address] report. Shows chronic sphenoid sinusitis which is likely the source of the thick mucus and exacerbati ng cough. No evident infection on endoscopy. Omnicef for 3wks. Flonase and sinus rinse. F/u 1mo Chronic cough 13256207 R 05.3 Health Concerns Section Related Observation LastModified by Organization Detai ls LastModified Time None Recorded Concern Status LastModified by Organization Details LastModified Time None Recorded Advance Directives Directive None Recorded Payers Insurance Date Sequence Insurance Name Policy Number Policy Wells Covered Member ID Wells Member ID Guarantor Name 09/15/2022 2 [employer] (MEDICARE SUPPLEMENT) Bianca Breeding [id number] Bianca Breeding 09/15/2022 1 [place] Bianca Ferrari Breeding [id number] Bianca Breeding Notes Date Note Type Note Provider Name and Address Organization Details Recorded Time 09/15/2022 text/html Ref: Angel Luis Rolanda arndt MDChief Complaint: Post-nasal drainageTimin-4 monthsDuration: constantLocation:Sev erity: moderateQuality: thick/excessiveConte xt:Hx of chronic cough, HX of GERD, [facility] sinus at [facility], no hx nasal/sinus surgery, dx sleep apneaModifying Factors: nasal saline spray, OTC mucous relief - no improvement, [facility] signs and symptoms: heavy mucus/PND that she cannot get up and makes her cough even more, anxiety and dyspnea, throat clearing, chronic cough for 20yrs, mild hoarseness, no diplopia, throat & ear sensitivity DEXTER PABLO MD [address] [place] [address], [phone], [facility] 09/15/2022 13:00:12 OBGyn Episode No OBEpisode recorded.
--- OUTSIDE RECORDS SUMMARY | 2024-11-02 14:01 | XMS_ITS | Continuity of Care Document ---
Author Organization AR Mora / TANYA Carmen Address [address] [facility] [address] [place] [address] Care Team Providers Care Computer Repair Engineer Name Role Phone ANGEL LUIS MORA Primary Care Provider LIZZIE Beth Research Archaeologist JOHN SIMMONS Ground Instructor Basic Key HORNE Men'S Basketball Coach SOFIA HITCHCOCK Sleep Medicine HARDEEP HENRIQUEZ Neurosurgeon SANYA PRIETO Cane Furniture Maker ENEDINA HOOVER Concaver ZIGGY SALAZAR Pain Management Assessment No assessment recorded. Plan of Treatment Reminders Order Date Submit Date Provider Last Modified By Organization Details Last Modified Time Details Appointments 30 MIN FOLLOW -UP 2024 03:00P M Angel Luis Mora MD, FACJemma Not available Not available Not available CIMT 2024 02:00P M CIMT Schedule, TECH Not available Not available Not available ANDREW PRE- V ([facility]) 60M 2024 10:30A M [facility] Not available Not available Not available RADHAP- 59M MD SALAZAR 2024 11:00A M Angel Luis Mora MD, FACP Not available Not available Not available Lab None record ed. Referral None record ed. Procedures None record ed. Surgeries None record ed. Imaging None record ed. Medication Orders hydroc hlorot hiazid e 25 mg tablet [address] [facility], [address] [place], [id number], 10/17/2024 14:24:26 Patient TargetsNo targets recorded. Patient Instructions Encounter Date Encounter Id Patient Instructions Last Modified By Organization Details Last Modified Time 10/15/2024 [id number] Instead of Kerline, you might try Zyrtec or Xyzal. I do recommend large-volume saline irrigations (nasal) [id number] Not available 10/15/2024 16:50:11 [id number] . Give lorazepam 0.5 mg #30 for occasional prn use [email or web address] Not available 10/15/2024 16:52:01 Reason for Referral None Reported. Problems Name Problem SNOMED Code Status Onset Date Resolution Date Notes Provider Name and Address Organization Details Recorded Time Cough 53224342 Active 2015 Cough;Pro blem Note: usual broad different ial. Elements of rhinitis suspect. Chest CT August 2012-see record. 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 Not Available [facility] 9 22:03:19 Benign essentia l hyperten matthew 0438254 Active 2013 Hypertens ion, Benign Essential ; Not Available [facility] 9 22:03:19 Arthropa thy 532853045 Active 2016 Osteoarth ritis; Not Available [facility] 9 22:03:19 Lipoprot ein above referenc e range 661742884 Active 2018 L0 (a) elevation Angel Luis Melissa Mora, MD [address], [place], [address], [place] [facility] 9 12:29:17 Cystocel e and rectocel e co-occur rent with incomple te uterovag inal prolapse 753467493 Active 2018 Angel Luis Mora MD [address], [place], [address], [place] [facility] 9 13:08:59 Coronary atherosc lerosis 893173075 Active 2018 2-40%-act renea plaque and inflammat ion on CIMT 03/01 Angel Luis Mora MD [address], [place], [address], [place] [facility] 9 12:23:00 Body mass index 25-29 - overweig ht 319053761 Active 2018 Stacey Kelly null, [place] [facility] 9 12:20:39 Finding of body mass index 763540075 Active 2018 Glenny gaspar null, [place] [facility] [facility] 9 11:27:51 Gastroes ophageal reflux disease 631964181 Active 2018 EGD 08/29-file d Vidhya, probably Barretts Angel Luis Mora MD [address], [place], [address], [place] [facility] [facility] 9 16:50:02 Dean' s esophagu s 097777287 Active 2018 Angel Luis Mora MD [address], [place], [address], [place] [facility] 9 12:07:43 Environm ental allergy 962720550 Active 2020 Angel Luis Mora MD [address], [place], [address], [place] [facility] 1 15:01:32 Hypersom belinda 76928048 Active 2020 Angel Luis Mora MD [address], [place], [address], [place] [facility] 1 15:02:43 Diarrhea 57743166 Active 2020 Angel Luis Mora MD [address], [place], [address], [place] [facility] 1 11:42:25 Easy bruising 972444343 Active 2020 Angel Luis Mora MD [address], [place], [address], [place] [facility] 1 11:43:30 Sleep apnea 45589945 Active 2020 Angel Luis Mora MD [address], [place], [address], [place] [facility] 1 15:45:46 Iron deficien cy 87430389 Active 2021 ferritin 11 as of 08/24/21 Angel Luis Mora MD [address], [place], [address], [place] [facility] [facility] 2 09:03:15 Osteoart hritis 031107937 Active 2022 Angel Luis Mora MD [address], [place], [address], [place] [facility] 3 14:19:41 Hyponatr emia 33563240 Active 2022 Angel Luis Mora MD [address], [place], [address], [place] [facility] 3 14:19:42 Depressi ve disorder 55651680 Active 2022 Angel Luis Mora MD [address], [place], [address], [place] [facility] 3 13:55:50 Chapped skin 085126342 Active 2023 Angel Luis Mora MD [address], [place], [address], [place] [facility] 4 10:10:15 Chronic cough 63762138 Active 2024 Angel Luis Mora MD [address], [place], [address], [place] [facility] 5 12:08:08 Seasonal affectiv e disorder 807371741 Active 2024 Angel Luis Mora MD [address], [place], [address], [place] [facility] [facility] 5 16:41:56 Problem Notes None recorded. Procedures Surgical History Date Name Laterality Status Provider Name and Address Organization Details Recorded Time 02/13 Pain Assessment completed Kaitlin Leonila [place] [facility] [place] 4 15:27:43 02/13 Home Safety Screen completed Kaitlin Leonila [place] 4 15:26:58 02/13 Medicare Annual Wellness completed Kaitlin Leonila [place] [facility] [place] 4 14:44:55 06/15 implantation of permanent spinal cord stimulator completed Kaitlin Leonila [place] [facility] [place] 4 17:22:24 02/28 Screening Mammogram completed Kaitlin Leonila [place] [facility] 4 17:09:53 11/30 Pain Assessment completed Kaitlin Leonila [place] [facility] [place] 3 14:20:39 11/30 Home Safety Screen completed Kaitlin Leonila [place] 3 14:19:42 11/30 Medicare Annual Wellness completed Kaitlin Leonila [place] [facility] [place] 3 12:58:24 11/17 Colorectal ca screen doc rev completed Kaitlin Leonila [place] [facility] [place] 3 14:51:27 11/17 esophagogastroduodenosc opy completed Kaitlin Leonila [place] [facility] [place] 3 14:53:05 08/24 complete repair of rotator cuff completed Kaitlin Leonila [place] [facility] [place] 3 15:53:32 02/26 Screening Mammogram completed Kaitlin Leonila [place] / [facility] 3 14:48:48 11/26 Pain Assessment completed Kaitlin Leonila [place] [facility] [place] 2 11:14:13 11/26 Home Safety Screen completed Kaitlin Leonila [place] 2 11:07:31 11/26 Medicare Annual Wellness completed Kaitlin Leonila [place] [facility] [place] 2 10:11:49 09/16 evaluation of stool specimen completed Kaitlin Leonila [place] [facility] [place] 2 15:39:54 06/15 esophagogastroduodenosc opy completed Kaitlin Leonila [place] [facility] [place] 2 15:42:08 02/25 Screening Mammogram completed Kaitlin Leonila [place] / [facility] 2 15:36:50 11/17 Pain Assessment completed Kaitlin Leonila [place] [facility] [place] 1 11:29:27 11/17 Home Safety Screen completed [place]aitlin Leonila [place] 1 11:22:04 11/17 Medicare Annual Wellness completed Kaitlin Leonila [place] [facility] [place] 1 10:53:56 06/04 esophagogastroduodenosc opy completed Kaitlin Leonila [place] [facility] [place] 1 11:31:29 01/17 Screening Mammogram completed Kaitlin Leonila [place] [facility] [place] 1 11:28:21 12/09 primary lumbar discectomy completed Angel Luis Mora MD [address] [facility] [address], [place], [address], [place] [facility] 0 13:10:28 11/13 Pain Assessment completed Kaitlin Leonila [place] 0 11:11:12 11/13 Home Safety Screen completed [place]aitlin Leonila [place] 0 11:09:31 03/16 total excision of bilateral fallopian tubes completed Angel Luis Mora MD [address] [facility] [address], [place], [address], [place] [facility] [place] [facility] 9 14:00:41 02/27 Dxa bone density yessy vrt fx completed Kaitlin Leonila [place] [facility] [place] 0 15:44:00 10/18 MDVIP AWE completed Angel Luis Mora MD [address] [facility] [address], [place], [address], [place] [facility] 9 13:53:04 09/25 Pain Assessment completed Kaitlin Leonila [place] 9 15:19:20 09/25 Home Safety Screen completed Kaitlin Leonila [place] 9 15:19:20 09/04 esophagogastroduodenosc opy completed Kaitlin Leonila [place] [facility] [place] 9 16:20:35 09/04 Colorectal ca screen doc rev completed Kaitlin Leonila [place] [facility] [place] 0 09:55:38 07/07 Screening Mammogram completed Kaitlin Leonila [place] - [place] [facility] / [facility] 9 16:23:08 06/13 Vidhya Fundoplication completed Kaitlin Leonila [place] [facility] [place] 9 16:20:08 06/13 augmentation of bilateral breasts completed Kaitlin Leonila [place] [facility] [place] 9 16:19:23 06/13 operation on urinary bladder completed Kaitlin Leonila [place] 0 15:38:30 06/13 Total hysterectomy completed Kaitlin Leonila [place] 0 15:39:15 Imaging Results None recorded. Procedure Notes None recorded. Medical Equipment None Reported. Allergies Allergen ID Allergen Name Allergen Category Reaction Reaction Severity Criticality Documentation Date Start Date Code Code System Note Provider Name and Address Organization Details Recorded Time [facility] Not available Not available Not available 09/11/2018 32769 4 RxNorm React ion: face/ neck swell ing; Not Available [facility] 9 05:48:00 Medications Name Sig Start Date Stop Date Status Note LastModified by Organization Details LastModified Time slow fe 45mg tablets TAKE 1 TABLET BY MOUTH EVERY OTHER DAY 01/20 completed Not Available Not Available Not Available Prescript ion - New 06/01 completed gabapent in Not Available Not Available Not Available Prescript ion - Prior Authoriza tion Request 01/11 completed Not Available Not Available Not Available losartan 50 mg tablet TAKE 1 TABLET DAILY 06/03 completed Not Available Not Available Not Available celecoxib 200 mg capsule Take 1 capsule every day by oral route. 04/30 completed Not Available Not Available Not Available cyclobenz aprine 10 mg tablet Take 1 tablet 3 times a day by oral route as needed. 11/17 completed Not Available Not Available Not Available nystatin 100,000 unit/mL oral suspensio n SHAKE LIQUID AND TAKE 5 ML BY MOUTH FOUR TIMES DAILY 11/30 completed Not Available Not Available Not Available gabapenti n 600 mg tablet TAKE 1 TABLET BY MOUTH TWICE DAILY AND TAKE 2 TABLETS IN THE EVENING DIRECTED 03/31 completed Not Available Not Available Not Available labetalol 200 mg tablet Take 0.5 tablets twice a day by oral route. 08/15 completed Not Available Not Available Not Available atorvasta tin 10 mg tablet TAKE 1 TABLET EVERY NIGHT AT BEDTIME active Not Available Not Available No t Available azithromy jerry 250 mg tablet 10/15 completed Not Available Not Available Not Available ibuprofen 800 mg tablet 11/13 completed Not Available Not Available Not Available metoprolo l succinate ER 50 mg tablet,ex tended release 24 hr TAKE ONE TABLET BY MOUTH EVERY DAY active Not Available Not Available No t Available hydrocodo ne 5 mg-acetam inophen 325 mg tablet TAKE 1 TABLET BY MOUTH EVERY 4 TO 6 HOURS NEEDED FOR PAIN 11/26 completed Not Available Not Available Not Available promethaz ine 25 mg rectal supposito ry Insert 1 supposit ory every 8 hours by rectal route as needed. 11/13 completed Not Available Not Available Not Available ondansetr on HCl 8 mg tablet TAKE 1 TABLET BY MOUTH EVERY 8 HOURS NEEDED active Not Available Not Available No t Available meloxicam 15 mg tablet TAKE ONE TABLET BY MOUTH EVERY DAY with food --TAKE WITH FOOD-- active Not Available Not Available No t Available phenazopy ridine 200 mg tablet TAKE 1 TABLET BY MOUTH EVERY 8 HOURS FOR PAIN FOR 2 DAYS 02/13 completed Not Available Not Available Not Available ondansetr on HCl 4 mg tablet 11/30 completed Not Available Not Available Not Available famotidin e 40 mg tablet TAKE ONE TABLET BY MOUTH EVERY DAY AT BEDTIME active Not Available Not Available No t Available prednison e 20 mg tablet 11/30 completed Pulmonar y, has startedt aking this now 12/10 Not Available Not Available Not Available estradiol 0.05 mg/24 hr weekly transderm al patch APPLY 1 PATCH TO THE SKIN ONCE WEEKLY active Not Available Not Available No t Available fluoroura cil 5 % topical cream active Not Available Not Available Not Available fexofenad ine 180 mg tablet TAKE ONE TABLET BY MOUTH EVERY DAY NEEDED active Not Available Not Available No t Available amlodipin e 5 mg tablet TAKE 1 TABLET BY MOUTH EVERY DAY active Not Available Not Available No t Available estradiol 0.05 mg/24 hr semiweekl y transderm al patch Apply 1 patch twice a week by transder mal route for 30 days. 11/28 completed Not Available Not Available Not Available ciproflox acin 500 mg tablet TAKE 1 TABLET BY MOUTH EVERY 12 HOURS 02/03 completed Not Available Not Available Not Available hydrocodo ne 10 mg-acetam inophen 325 mg tablet 03/23 completed Not Available Not Available Not Available nortripty line 25 mg capsule 1 po qd 12/09 completed Not Available Not Available Not Available meloxicam 7.5 mg tablet 1-2 po qd prn 10/31 completed Not Available Not Available Not Available oxycodone -acetamin ophen 5 mg-325 mg tablet TAKE 1 TABLET BY MOUTH THREE TIMES DAILY NEEDED FOR PAIN 08/15 completed Not Available Not Available Not Available potassium chloride ER 20 mEq tablet,ex tended release(p art/cryst ) Take 1 tablet every day by oral route. 11/13 completed Not Available Not Available Not Available lorazepam 0.5 mg tablet TAKE ONE TABLET BY MOUTH EVERY 4 TO 6 HOURS NEEDED MAY CAUSE DROWSINE SS max 3 tablets PER day active Not Available Not Available No t Available hydrocort isone butyrate 0.1 % topical ointment APPLY A SMALL AMOUNT TO TO THE AFFECTED AREA TWICE DAILY 11/30 completed Not Available Not Available Not Available tamsulosi n 0.4 mg capsule 08/15 completed Not taking HH 11/30/22 Not Available Not Available Not Available diazepam 2 mg tablet TAKE 1 OR 2 TABLETS ONCE NEEDED FOR ANXIETY 08/20 completed Not Available Not Available Not Available benzonata te 100 mg capsule TAKE 1 CAPSULE BY MOUTH THREE TIMES DAILY NEEDED FOR COUGH 08/15 completed Not Available Not Available Not Available hydrocodo ne 7.5 mg-acetam inophen 325 mg tablet Take 1 tablet every 6 hours by oral route. 11/30 completed Not Available Not Available Not Available cephalexi n 500 mg capsule 04/30 completed Not Available Not Available Not Available pantopraz ole 40 mg tablet,de layed release TAKE ONE TABLET BY MOUTH EVERY DAY active Not Available Not Available No t Available esomepraz ole magnesium 40 mg capsule,d elayed release TAKE 1 CAPSULE BY MOUTH TWICE DAILY 11/26 completed Not Available Not Available Not Available triamcino lone acetonide 0.1 % topical ointment APPLY TOPICALL Y TO RASH TWICE DAILY prn 11/30 completed Not Available Not Available Not Available clotrimaz ole-betam ethasone 1 %-0.05 % topical cream APPLY TOPICALL Y TO THE AFFECTED AND SURROUND ING AREAS TWICE DAILY IN THE MORNING AND IN THE EVENING FOR 2 WEEKS 11/30 completed Not Available Not Available Not Available nystatin- triamcino lone 100,000 unit/g-0. 1 % topical cream prn 03/23 completed Not Available Not Available Not Available gabapenti n 300 mg capsule TAKE 1 CAPSULE BY MOUTH EVERY NIGHT 11/05 completed Not Available Not Available Not Available omeprazol e 20 mg capsule,d elayed release take 1 capsule (20 mg) by oral route once daily before a meal 09/25 completed Frequenc y Code: QD Descr iption: omeprazo le 20 mg oral capsule, delayed release( DR/EC) Not Available Not Available Not Available hydroxyzi ne HCl 25 mg tablet TAKE 1 TABLET BY MOUTH THREE TIMES DAILY NEEDED FOR ITCHING 08/15 completed Not Available Not Available Not Available hydrochlo rothiazid e 25 mg tablet TAKE ONE TABLET BY MOUTH ONCE DAILY active Not Available Not Available No t Available mupirocin 2 % topical ointment 08/15 completed Not Available Not Available Not Available furosemid e 20 mg tablet Take 1 tablet every day by oral route. 10/22 completed Not Available Not Available Not Available pyridoxin e (vitamin B6) 100 mg tablet TAKE ONE TABLET BY MOUTH ONCE A DAY active Not Available Not Available No t Available mirtazapi ne 15 mg tablet take 1/2 tab (7.5mg) PO QD 2023 active Not Available Not Available Not Avai lable estradiol 0.5 mg tablet TAKE 1 TABLET BY MOUTH EVERY DAY active Not Available Not Available No t Available metoprolo l succinate ER 25 mg tablet,ex tended release 24 hr Take 1/2-1 tablet po daily PRN 10/28 completed Not Available Not Available Not Available clobetaso l 0.05 % topical ointment APPLY THIN LAYER EXTERNAL LY TO THE AFFECTED AREA THREE TIMES DAILY NEEDED 08/15 completed Not Available Not Available Not Available dexametha sone sodium phosphate 4 mg/mL injection solution UAD w/ iontopho resis 11/17 completed Not Available Not Available Not Available lorazepam 1 mg tablet Take 1 tab po 30 min- 1 hour prior to mri 11/13 completed Not Available Not Available Not Available diazepam 10 mg tablet TAKE ONE TO TWO TABLETS BY MOUTH EVERY DAY NEEDED FOR ANXIETY 05/25 completed Not Available Not Available Not Available levofloxa jerry 500 mg tablet TAKE 1 TABLET BY MOUTH DAILY 08/15 completed Not Available Not Available Not Available scopolami ne 1 mg over 3 days transderm al patch APPLY 1 PATCH TOPICALL Y TO THE SKIN EVERY 72 HOURS 11/30 completed Not Available Not Available Not Available methylpre dnisolone 4 mg tablets in a dose pack FOLLOW PACKAGE DIRECTIO NS 10/15 completed Not Available Not Available Not Available labetalol 100 mg tablet Take 1 tablet twice a day by oral route. 06/20 completed 06/20/23: Increase d to 200mg BID Not Available Not Available Not Available simi (Zingiber officinal is) 500 mg capsule Take 1 capsule every day by oral route. 11/13 completed Not Available Not Available Not Available hydrocort isone 2.5 % topical ointment APPLY TOPICALL Y TO THE AFFECTED AREA TWICE DAILY active prn Not Available Not Available No t Available nifedipin e ER 60 mg tablet,ex tended release 05/25 completed Not Available Not Available Not Available cefdinir 300 mg capsule TAKE 1 CAPSULE BY MOUTH EVERY 12 HOURS FOR 21 DAYS 11/30 completed Not Available Not Available Not Available fluoxetin e 20 mg capsule TAKE 1 CAPSULE BY MOUTH DAILY 12/20 completed Duglas , has not yet started, 11/30/22 Not Available Not Available Not Available fluticaso ne propionat e 50 mcg/actua tion nasal spray,micah pension SHAKE LIQUID AND USE 2 SPRAYS IN EACH NOSTRIL EVERY DAY 11/30 completed Not Available Not Available Not Available sertralin e 50 mg tablet TAKE 1 TABLET BY MOUTH ONCE DAILY 09/06 completed Not Available Not Available Not Available diazepam 5 mg tablet Take 1 tablet twice a day by oral route as needed. 08/15 completed Not Available Not Available Not Available metoclopr amide 10 mg tablet 11/13 completed Not Available Not Available Not Available esomepraz ole magnesium 20 mg capsule,d elayed release TAKE 2 CAPSULES BY MOUTH EVERY MORNING AND 1 CAPSULE EVERY BEDTIME 12/21 completed pantopra zole 40 mg daily Not Available Not Available Not Available Co Q-10 100 mg capsule Take 2 capsules every day by oral route. 11/13 completed Not Available Not Available Not Available LEDY-COLA CE 8.6 mg-50 mg tablet Take 2 tablets every day by oral route at bedtime. 11/13 completed Not Available Not Available Not Available rosuvasta tin 20 mg tablet TAKE 1 TABLET BY MOUTH DAILY AT BEDTIME active Not Available Not Available No t Available mirtazapi ne 7.5 mg tablet TAKE 1 TABLET BY MOUTH EVERY DAY 08/14 completed Not Available Not Available Not Available nitrofura ntoin monohydra te/macroc rystals 100 mg capsule TAKE 1 CAPSULE BY MOUTH EVERY 12 HOURS FOR 7 DAYS WITH MEAL/BENJAMIN D 02/13 completed Not Available Not Available Not Available duloxetin e 30 mg capsule,d elayed release take 1 capsule (30 mg) by oral route once daily -May double after one week to 2 per day 08/15 completed Not Available Not Available Not Available duloxetin e 60 mg capsule,d elayed release TAKE 1 CAPSULE BY MOUTH EVERY DAY active Not Available Not Available No t Available pregabali n 75 mg capsule TAKE 1 CAPSULE BY MOUTH TWICE DAILY active Not Available Not Available No t Available acetamino phen prn active Usually 2 po once or twice a week. 02/14/24 Not Available Not Available Not Available aspirin 81 mg daily active Not taking 11/30/22 & 02/14/24 Not Available Not Available Not Available Fish Oil 1290 mg 1 po qd active Not taking since Jun 2023 02/14/24 Not Available Not Available Not Available Tylenol PM Extra Strength 1 po qohs 11/13 completed alternat es with hydroxyz ine Not Available Not Available Not Available metoprolo l succinate 50 mg daily 11/13 completed Not Available Not Available Not Available Vitamin D3 D3 125 mcg + K2 100 mcg active Not Available Not Available No t Available Co Q 10 100 mg po qd active Not Available Not Available No t Available Nexium 20 mg 2 po qam, 1 po qpm. 11/26 completed Not Available Not Available Not Available Endur-Aci n 1500 mg po qd 01/19 completed Not Available Not Available Not Available hydrochlo rothiazid e 12.5 mg tablet TAKE ONE TABLET BY MOUTH EVERY DAY active Not Available Not Available No t Available melatonin 5 mg tablet take 2 tablet by oral route once a day (in the evening) 11/26 completed Not Available Not Available Not Available Slow Fe 142 mg (45 mg iron) tablet,ex tended release Take 1 tablet every other day by oral route. 01/20 completed Not Available Not Available Not Available sodium,po tassium,m ag sulfates 17.5 gram-3.13 gram-1.6 gram oral soln 11/30 completed Not Available Not Available Not Available Horizant ER 600 mg tablet,ex tended release 1 tab @ 6pm active Not Available Not Available No t Available Neupro 1 mg/24 hour transderm al 24 hour patch Apply 1 patch every day by transder mal route. 09/16 completed Claribel Pelaez - sleep BULB FILLER Not Available Not Available Not Available EpiCeram topical emulsion, extended release APPLY TOPICALL Y TWICE A DAY DIRECTED prn 11/30 completed Not Available Not Available Not Available Linzess 145 mcg capsule TAKE 1 CAPSULE BY MOUTH ONCE DAILY ON AN EMPTY STOMACH AT LEAST [address] MEAL OF THE DAY 04/30 completed Not Available Not Available Not Available Breo Ellipta 200 mcg-25 mcg/dose powder for inhalatio n Inhale 1 puff every day by inhalati on route. 11/30 completed Pulmonar y, samples given. Not Available Not Available Not Available esomepraz ole magnesium 20 mg tablet,de layed release take 2 po qam 03/23 completed Not Available Not Available Not Available Centrum Women 1 po qd active Not Available Not Available Not Available Shingrix (PF) 50 mcg/0.5 mL intramusc ular suspensio n, kit 08/19 completed Not Available Not Available Not Available cannabidi ol (CBD) extract ointment for arthriti s prn 11/17 completed Not Available Not Available Not Available turmeric 1500 mg 3 po qd 11/13 completed Not Available Not Available Not Available Glucosami ne Chondroit in 1500 mg/1200 mg 3 po qd 11/13 completed Not Available Not Available Not Available Rheumate 1 mg-1 mg-500 mg capsule Take 1 capsule every day by oral route. active Not Available Not Available No t Available Vitals Date Recorded Body height Body mass index (BMI) Body weight Heart rate Oxygen saturation Oxygen saturation in Arterial blood by Pulse oximetry Systolic blood pressure Diastolic blood pressure Provider Name and Address Organization Details Last Updated DateTime 5 162.56 cm 26.5 kg/m2 37015.3 g 59 /min 97 % 97 % 127 mm[Hg] 86 mm[Hg] Kala Dominique [place] - [facility] 5 16:13:52 Social History Question Answer Notes LastModified by Organizat ion Details LastModified Time Tobacco Smoking Status Never Smoker Not Available [facility] 04/15/2020 03:38:50 What Is Your Level Of Caffeine Consumption? Moderate 1 Mug Coffee/d, 1 Iced Tea/d [id number] Information not available 04/15/2020 Education 2 Year College [email or web address] Information not available 03/31/2021 Marital Status alycia Informatio n not available 03/31/2021 What Was The Date Of Your Most Recent Tobacco Screening? 02/14/2024 Information not available 02/14/2024 Sex: Unknown Functional Status Question Answer Note LastModified by Organizat ion Details LastModified Time What is your level of alcohol consumption? 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 Occasional Every day activitie s. Gardening . Information not available 02/14/2024 Mental Status None recorded. Family History Relationship Description Onset Age of this Age Resolved Age Notes LastModified by Organization Details LastModified Time Mother Malignant tumor of colon 68 [email or web address] Not available 2018 16:13:58 Mother Cerebrovascu lar accident 75 82 [email or web address] Not available 16:14:39 Mother Hypertensive disorder [email or web address] Not available 2018 16:15:12 Mother Atrial fibrillation 72 [email or web address] Not available 08/2023 15:19:56 Sister Type 1 diabetes mellitus 8 41 h[place] Not available 2018 16:15:02 Father Motor vehicle accident 50 50 motor cycle accide nt hhalpin Not available 09/25/2018 16:15:47 Medical History Condition Response Other Y Gynecological HistoryNo gynecological history recorded. Obstetrics History GPAL:G 0 P 0 0 0 0 Immunizations Vaccine Type Date Status Note Provider Nam e and Address Organization Details Recorded Time Influenza, recombinant, trivalent, PF 4 completed [place], [place] - [facility] 03/02/2024 14:04:12 Tdap 9 completed Not Available [facility] 06/30/2019 02:25:25 zoster, unspecified formulation 3 completed Not Available [facility] 01/19/2023 15:01:25 Influenza, recombinant, quadrivalent, PF 8 completed Not Available [facility] 01/19/2023 15:01:25 Hep A, adult 8 completed Not Available [facility] 01/19/2023 15:01:25 zoster live 9 completed Not Available [facility] 01/19/2023 15:01:25 Influenza, recombinant, quadrivalent, PF 9 completed Not Available [facility] 06/30/2019 02:25:26 COVID-19, mRNA, LNP-S, PF, 30 mcg/0.3 mL dose 1 completed Germania [place] null, [place] - [facility] 10/05/2022 13:14:56 COVID-19, mRNA, LNP-S, PF, 30 mcg/0.3 mL dose 1 completed [place]ia [place] null, [place] [facility] 10/05/2022 13:15:12 pneumococcal polysaccharide PPV23 0 completed Guerita Burr null, [place] [facility] 12/05/2019 15:26:41 COVID-19, mRNA, LNP-S, bivalent, PF, 50 mcg/0.5 mL or 25mcg/0.25 mL dose 2 completed Germania [place] null, [place] [facility] 10/05/2022 13:16:47 Influenza, recombinant, quadrivalent, PF 0 completed Germania [place], [place] [facility] 03/24/2020 14:12:14 Hep A, adult 9 completed Not Available [facility] 06/30/2019 02:25:25 COVID-19, mRNA, LNP-S, PF, 100 mcg/0.5mL dose or 50 mcg/0.25mL dose 1 completed Guerita Bur[place], [place] [facility] 03/28/2021 12:02:10 Influenza, recombinant, quadrivalent, PF 1 completed Germania [place], [place] [facility] 05/25/2021 14:49:06 zoster recombinant 1 completed Germania [place] null, [place] [facility] 05/25/2021 14:49:06 Influenza, high-dose, quadrivalent, PF 2 completed [place] [facility] Shaneka [place] 04/06/2022 13:44:54 Past Encounters Encounter ID Performer Location Encounter Start Date Encounter Closed Date Diagnosis/Indication Diagnosis SNOMED-CT Code Diagnosis ICD10 Code Diagnosis Note [id number] Angel Luis Mora MD [facility] [address] [place] [address] 10/15/2024 16:04:23 10/16/2024 15:06:46 Seasonal affective disorder 723386340 F33.1 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 Iron deficiency 51889807 E61.1 Benign ess ential hypertension 1639951 I10 Addition of diuretic seems prudent Health Concerns Section Related Observation LastModified by Organization Detai ls LastModified Time None Recorded Concern Status LastModified by Organization Details LastModified Time None Recorded Payers Encounter Date Sequence Insurance Name Policy Number Policy Wells Covered Member ID Wells Member ID Guarantor Name 10/15/2024 1 [place] Bianca Ferrari Breeding [id number] Bianca Ferrari Breeding 10/15/2024 2 [employer] (MEDICARE SUPPLEMENT) Bianca Ferrari Breeding [id number] Bianca Ferrari Breeding Notes Date Note Type Note Provider Name and Address Organization Details Recorded Time 5 text/html Patient is tolerating hydrochlorothiazide but blood pressures remain elevated. She describes being quite sweaty and more anxious than she used to be. She brings a collection of home blood pressure readings averaging the 140s over 70s. She feels that she is getting over her sinus infection but still has daily headache and head congestion. Generic Kerline is of no value to her. She is not using saline irrigations. She has restless legs and her sleep specialist is arranging for her to get iron infusions to get her ferritin up over 100 Paulino Kyle minerva [place] Shaneka [place] 10/15/2024 16:55:44 OBGyn Episode No OBEpisode recorded.
--- OUTSIDE RECORDS SUMMARY | 2024-11-02 14:02 | XMS_ITS | Data Portability ---
Author Organization [facility] Mora / Peter Carmen Address [address] [place] [address] Care Team Providers Care Marketing Traffic Manager Name Role Phone ANGEL LUIS MORA Primary Care Provider LIZZIE Beth Lock Installer JOHN SIMMONS Production Team Member Key HOREN Deputy Clerk SOFIA HITCHCOCK Sleep Medicine HARDEEP BARNARD Neurosurgeon SANYA PRIETO Porcelain Enameling Supervisor ENEDINA HOOVER Mobility Scooter Repairer ZIGGY SALAZAR Pain Management Assessment No assessment recorded. Plan of Treatment Reminders Order Date Submit Date Provider Last Modified By Organization Details Last Modified Time Details Appointments 30 MIN FOLLO W-UP 2024 03:00P M Angel Luis Mora MD, FACP Not available Not available Not available CIMT 2024 02:00P M CIMT Schedule, TECH Not available Not available Not available ZHEN -PRE- SWV ([facility]) 60M 2024 10:30A M PREWELLNESS CLINICIAN Not available Not available Not available RADHAP -60M MD YEH ESS 2024 11:00A M Angel Luis Mora MD, FACP Not available Not available Not available Lab urdelroy lysis , dipst ick 2024 025 [facility], [address], [place], [address], 07/03/2024 13:49:12 urina lysis compl ete, refle x cultu re 2024 [place] [facility], [address], [address], [place], [address], 07/04/2024 07:11:26 Referral None recor ded. Procedures body compo sitio n phyllis sis (PROC ) [address], [address] [facility] [address], [place], [address], 02/15/2024 08:58:22 gait test (PROC ) [address], [address] [facility] [address], [place], [address], 02/15/2024 08:58:22 Surgeries None recor ded. Imaging DEXA - Inclu de FRAX 2023 024 [facility], [address], [address], [place], [address], 06/04/2024 12:11:50 audio gram [address], [address] [facility] [address], [place], [address], 02/15/2024 08:58:22 elect rocar diogr am [address], [address] [facility] [address], [place], [address], 02/15/2024 08:58:22 Medication Orders hydro chlor othia zide 25 mg table t 2024 025 [facility], [address] [place] [address] [address] [facility] [address], [place], [id number], 10/17/2024 14:24:26 fexof enadi ne 180 mg table t 2024 025 [place] [address] [facility], [address] [place] [address] [address], [place], [id number], 08/31/2024 14:28:20 hydro chlor othia zide 12.5 mg table t 2024 0[address] [facility] [place] [address] [facility]acy [facility], [address] [place] [address] [address], [place], [id number], 08/31/2024 14:28:20 dulox etine 60 mg capsu le,de layed relea se 2023 024 [place] [address] [facility][id number], [address] [place], [place], [id number], 03/02/2024 14:44:18 estra diol 0.05 mg/24 hr weekl y trans derma l patch 2023 024 [facility] #, [address], [id number], 03/02/2024 14:44:18 metop rolol succi nuno ER 50 mg table t,ext ended relea se 24 hr 2023 024 [place] [address] [facility] #, [address], [id number], 03/02/2024 14:44:18 marielos zapin e 15 mg table t 2023 024 [facility] #, [address], [id number], 03/02/2024 14:44:18 panto prazo le 40 mg table t,del ayed relea se 2023 024 [facility] #, 9 [facility] [address] [place], [id number], 03/02/2024 14:44:18 rosuv astat in 20 mg table t 2023 024 [id number], [address] [facility] [place] [address] [place], [id number], 03/02/2024 14:44:18 amlod ipine 5 mg table t 2023 024 [facility] #[id number], [address] [facility] [address] [place], [id number], 03/02/2024 14:44:18 Patient TargetsNo targets recorded. Patient Instructions Encounter Date Encounter Id Patient Instructions Last Modified By Organization Details Last Modified Time 02/14/2024 [id number] ([id number]) ankle brachial index* Not available 02/15/2024 08:58:22 fall risk assessment* Not available 02/15/2024 08:58:22 adult depression screening* Not available 02/15/2024 08:58:22 functional assessment* Not available 02/15/2024 08:58:22 substance abuse screening* Not available 02/15/2024 08:58:22 visual acuity* Not available 0 02/15/2024 08:58:22 pharmacy technician program director test* Not available 02/14 08:58:22 Cognitive Assessment Battery* Not available 02/15/2024 08:58:22 Patient reminded blood was drawn today. Encouraged to hydrate and be cautious as they may become dizzy or light headed. If issues or symptoms, return to clinic or contact nearest medical personnel. We look forward to seeing you to discuss the results of these labs. Be well and see you soon! [email or web address] Not available 02/14/2024 14:44:54 03/02/[id number] You might consider discussing estrogen topically to the are for open to reduce risk of future infections Not available 03/02/2024 13:34:56 RSV verified-lz. Arrange CIMT Not available 03/02/2024 13:35:07 07/03/2024 [id number] We discussed several options including twice daily MiraLAX adding stool softener. Various fiber form such as Citrucel. Option of trying Linzess Not available 07/03/2024 13:17:57 08/30/2024 [id number] Brief follow-up in a few weeks plan primarily to monitor blood pressure Not available 08/30/2024 12:09:15 rsv verified-ldb Not available 08/29/2024 17:02:56 10/15/2024 [id number] Instead of Kerline, you might try Zyrtec or Xyzal. I do recommend large-volume saline irrigations (nasal) [email or web address] Not available 10/15/2024 16:50:11 rsv verified-ldb . Give lorazepam 0.5 mg #30 for occasional prn use [email or web address] Not available 10/15/2024 16:52:01 Reason for Referral None Reported. Results Created Date Observation Date Name Description Value Unit Range Abnormal Flag Note LastModifiedBy Organization Detail LastModifiedTime 02/14/20 24 02/15/2024 NMR LIPOP ROFIL E+LIP IDS LDL-P 783 nmol/ L <1000 Low < 1000 Moder ate 1000 - 1299 Borde rline -High 1300 - 1599 High 1600 - 2000 Very High > 2000 Not Available [facility] ([facility]) [address] [facility], [place], [address], 02/15/2024 17:10:06 02/14/20 24 02/15/2024 NMR LIPOP ROFIL E+LIP IDS LDL-C (nih calc) 71 mg/dL 0-99 Optim al < 100 Above optim al 100 - 129 Borde rline 130 - 159 High 160 - 189 Very high > 189 Not Available [facility] ([facility]) [address] [place], [address], 02/15/2024 17:10:06 02/14/20 24 02/15/2024 NMR LIPOP ROFIL E+LIP IDS HDL-C 102 mg/dL >39 Not Available [facility] ([facility]) [address] [facility], [place], [address], 02/15/2024 17:10:06 02/14/2002/15/2024 NMR LIPOP ROFIL E+LIP IDS triglyceride s 76 mg/dL 0-149 Not Available [facility] ([facility]) [address] [place], [address], 02/15/2024 17:10:06 02/14/20 24 02/15/2024 NMR LIPOP ROFIL E+LIP IDS cholesterol, total 187 mg/dL 100-19 9 Not Available [facility] ([facility]) [address] [facility], [place], [address], 02/15/2024 17:10:06 02/14/20 24 02/15/2024 NMR LIPOP ROFIL E+LIP IDS HDL-P (total) 46.6 umol/ L >=30.5 Not Available [facility] ([facility]) [address] [facility], [place], [address], 02/15/2024 17:10:06 02/14/2002/15/2024 NMR LIPOP ROFIL E+LIP IDS small LDL-P <90 nmol/ L <=527 Not Available [facility] ([facility]) [address] [place], [address], 02/15/2024 17:10:06 02/14/2002/15/2024 NMR LIPOP ROFIL E+LIP IDS LDL size 21.1 nm >20.5 ----- ----- ----- ----- ----- ----- ----- ----- ----- ----- ----- --- INTER PRETA TIVE INFOR MATNABIL N PARTI ALL ARTHUR NTRAT ION AND SIZE <--Lo wer CVD Risk Highe r CVD Risk- -> LDL AND HDL PARTI CLES Perce ntile in Refer ence Popul ation HDL-P (tota l) High 75th 50th 25th Low >34.9 34.9 30.5 26.7 <26.7 Small LDL-P Low 25th 50th 75th High <117 117 527 839 >839 LDL Size <-Lar ge (Chula elizabeth A)-> <-Sma ll (Chula elizabeth B)-> 23.0 20.6 20.5 19.0 ----- ----- ----- ----- ----- ----- ----- ----- ----- ----- ----- --- Small LDL-P and LDL Size are assoc iated with CVD risk, but not after LDL-P is taken into accou nt. Not Available [facility] ([facility]) [address] [facility], [place], [address], 02/15/2024 17:10:06 02/14/20 24 02/15/2024 NMR LIPOP ROFIL E+LIP IDS LP-IR score <25 <=45 INSUL IN RESIS TANCE MARKE R <--In sulin Sensi tive Insul in Resis tant- -> Perce ntile in Refer ence Popul ation Insul in Resis tance Score LP-IR Score Low 25th 50th 75th High <27 27 45 63 >63 LP-IR Score is inacc urate if patie nt is non-f astin g. The LP-IR score is a labor atory devel oped index that has been assoc iated with insul in resis tance and diabe tori risk and shoul d be used as one compo nent of a physi everardo' s clini eleanor asses sment . Not Available [facility] ([facility]) [address] [facility], [place], [address], 02/15/2024 17:10:06 02/14/20 24 02/15/2024 CBC WITH DIFFE RENTI AL/PL ATELE T WBC 6.3 x10e3 /uL 3.4-10 .8 normal Not Available [facility] ([facility]) [address] [facility], [place], [address], 02/15/2024 17:10:07 02/14/20 24 02/15/2024 CBC WITH DIFFE RENTI AL/PL ATELE T RBC 4.76 x10e6 /uL 3.77-5 .28 normal Not Available [facility] ([facility]) [address] [facility], [place], [address], 02/15/2024 17:10:07 02/14/20 24 02/15/2024 CBC WITH DIFFE RENTI AL/PL ATELE T hemoglobin 14.2 g/dL 11.1-1 5.9 normal Not Available [facility] ([facility]) [address] [facility], [place], [address], 02/15/2024 17:10:07 02/14/20 24 02/15/2024 CBC WITH DIFFE RENTI AL/PL ATELE T hematocrit 44.4 % 34.0-4 6.6 normal Not Available [facility] ([facility]) [address] [facility], [place], [address], 02/15/2024 17:10:07 02/14/2002/15/2024 CBC WITH DIFFE RENTI AL/PL ATELE T MCV 93 fL 79-97 normal Not Available [facility] ([facility]) [address] [facility], [place], [address], 02/15/2024 17:10:07 02/14/2002/15/2024 CBC WITH DIFFE RENTI AL/PL ATELE T MCH 29.8 pg 26.6-3 3.0 normal Not Available [facility] ([facility]) [address] [facility], [place], [address], 02/15/2024 17:10:07 02/14/20 24 02/15/2024 CBC WITH DIFFE RENTI AL/PL ATELE T MCHC 32.0 g/dL 31.5-3 5.7 normal Not Available [facility] ([facility]) [address] [facility], [place], [address], 02/15/2024 17:10:07 02/14/20 24 02/15/2024 CBC WITH DIFFE RENTI AL/PL ATELE T RDW 12.4 % 11.7-1 5.4 Not Available [facility] ([facility]) [address] [facility], [place], [address], 02/15/2024 17:10:07 02/14/20 24 02/15/2024 CBC WITH DIFFE RENTI AL/PL ATELE T platelets 302 x10e3 /uL 150-45 0 normal Not Available [facility] ([facility]) [address] [facility], [place], [address], 02/15/2024 17:10:07 02/14/20 24 02/15/2024 CBC WITH DIFFE RENTI AL/PL ATELE T neutrophils 71 % not estab. normal Not Available [facility] ([facility]) [address] [facility], [place], [address], 02/15/2024 17:10:07 02/14/20 24 02/15/2024 CBC WITH DIFFE RENTI AL/PL ATELE T lymphs 18 % not estab. normal Not Available [facility] ([facility]) [address] [facility], [place], [address], 02/15/2024 17:10:07 02/14/20 24 02/15/2024 CBC WITH DIFFE RENTI AL/PL ATELE T monocytes 7 % not estab. normal Not Available [facility] ([facility]) [address] [facility], [place], [address], 02/15/2024 17:10:07 02/14/20 24 02/15/2024 CBC WITH DIFFE RENTI AL/PL ATELE T eos 2 % not estab. normal Not Available [facility] ([facility]) [address] [facility], [place], [address], 02/15/2024 17:10:07 02/14/20 24 02/15/2024 CBC WITH DIFFE RENTI AL/PL ATELE T basos 1 % not estab. normal Not Available [facility] ([facility]) [address] [place], [address], 02/15/2024 17:10:07 02/14/20 24 02/15/2024 CBC WITH DIFFE RENTI AL/PL ATELE T immature cells PEDIATRICS PHYSICIAN Not Available [facility] ([facility]) [address] [place], [address], 02/15/2024 17:10:07 02/14/20 24 02/15/2024 CBC WITH DIFFE RENTI AL/PL ATELE T neutrophils (absolute) 4.5 x10e3 /uL 1.4-7. 0 normal Not Available [facility] ([facility]) [address] [place], [address], 02/15/2024 17:10:07 02/14/20 24 02/15/2024 CBC WITH DIFFE RENTI AL/PL ATELE T lymphs (absolute) 1.1 x10e3 /uL 0.7-3. 1 normal Not Available [facility] ([facility]) [address] [place], [address], 02/15/2024 17:10:07 02/14/20 24 02/15/2024 CBC WITH DIFFE RENTI AL/PL ATELE T monocytes(ab solute) 0.5 x10e3 /uL 0.1-0. 9 normal Not Available [facility] ([facility]) [address] [place], [address], 02/15/2024 17:10:07 02/14/20 24 02/15/2024 CBC WITH DIFFE RENTI AL/PL ATELE T eos (absolute) 0.1 x10e3 /uL 0.0-0. 4 normal Not Available [facility] ([facility]) [address] [place], [address], 02/15/2024 17:10:07 02/14/20 24 02/15/2024 CBC WITH DIFFE RENTI AL/PL ATELE T baso (absolute) 0.0 x10e3 /uL 0.0-0. 2 normal Not Available [facility] ([facility]) [address] [facility], [place], [address], 02/15/2024 17:10:07 02/14/20 24 02/15/2024 CBC WITH DIFFE RENTI AL/PL ATELE T immature granulocytes 1 % not estab. Not Available [facility] ([facility]) [address] [facility], [place], [address], 02/15/2024 17:10:07 02/14/20 24 02/15/2024 CBC WITH DIFFE RENTI AL/PL ATELE T immature grans (abs) 0.0 x10e3 /uL 0.0-0. 1 Not Available [facility] ([facility]) [address] [facility], [place], [address], 02/15/2024 17:10:07 02/14/20 24 02/15/2024 CBC WITH DIFFE RENTI AL/PL ATELE T NRBC PEDIATRICS PHYSICIAN Not Available [facility] ([facility]) [address] [facility], [place], [address], 02/15/2024 17:10:07 02/14/20 24 02/15/2024 CBC WITH DIFFE RENTI AL/PL ATELE T hematology comments: PEDIATRICS PHYSICIAN Not Available [facility] ([facility]) [address] [facility], [place], [address], 02/15/2024 17:10:07 02/14/20 24 02/15/2024 COMP. METAB OLIC PANEL (14) glucose 82 mg/dL 70-99 normal Not Available [facility] ([facility]) [address] [facility], [place], [address], 02/15/2024 17:10:08 02/14/20 24 02/15/2024 COMP. METAB OLIC PANEL (14) BUN 14 mg/dL 8-27 normal Not Available [facility] ([facility]) [address] [facility], [place], [address], 02/15/2024 17:10:08 02/14/20 24 02/15/2024 COMP. METAB OLIC PANEL (14) creatinine 0.70 mg/dL 0.57-1 .00 normal Not Available [facility] ([facility]) [address] [facility], [place], [address], 02/15/2024 17:10:08 02/14/20 24 02/15/2024 COMP. METAB OLIC PANEL (14) eGFR 94 mL/mi n/1.7 3 >59 normal Not Available [facility] ([facility]) [address] [facility], [place], [address], 02/15/2024 17:10:08 02/14/20 24 02/15/2024 COMP. METAB OLIC PANEL (14) BUN/creatini ne ratio 20 12-28 normal Not Available [facility] ([facility]) [address] [facility], [place], [address], 02/15/2024 17:10:08 02/14/20 24 02/15/2024 COMP. METAB OLIC PANEL (14) sodium 138 mmol/ L 134-14 4 normal Not Available [facility] ([facility]) [address] [facility], [place], [address], 02/15/2024 17:10:08 02/14/20 24 02/15/2024 COMP. METAB OLIC PANEL (14) potassium 4.3 mmol/ L 3.5-5. 2 normal Not Available [facility] ([facility]) [address] [facility], [place], [address], 02/15/2024 17:10:08 02/14/20 24 02/15/2024 COMP. METAB OLIC PANEL (14) chloride 98 mmol/ L 96-106 normal Not Available [facility] ([facility]) [address] [place], [address], 02/15/2024 17:10:08 02/14/20 24 02/15/2024 COMP. METAB OLIC PANEL (14) carbon dioxide, total 27 mmol/ L 20-29 normal Not Available [facility] ([facility]) [address] [place] [place], [address], 02/15/2024 17:10:08 02/14/20 24 02/15/2024 COMP. METAB OLIC PANEL (14) calcium 9.5 mg/dL 8.7-10 .3 normal Not Available [facility] ([facility]) [address] [place], [address], 02/15/2024 17:10:08 02/14/20 24 02/15/2024 COMP. METAB OLIC PANEL (14) protein, total 6.6 g/dL 6.0-8. 5 normal Not Available [facility] ([facility]) [address] [facility] [place], [address], 02/15/2024 17:10:08 02/14/20 24 02/15/2024 COMP. METAB OLIC PANEL (14) albumin 4.3 g/dL 3.9-4. 9 normal Not Available [facility] ([facility]) [address] [place] [place], [address], 02/15/2024 17:10:08 02/14/20 24 02/15/2024 COMP. METAB OLIC PANEL (14) globulin, total 2.3 g/dL 1.5-4. 5 Not Available [facility] ([facility]) [address] [place], [address], 02/15/2024 17:10:08 02/14/20 24 02/15/2024 COMP. METAB OLIC PANEL (14) bilirubin, total 0.3 mg/dL 0.0-1. 2 normal Not Available [facility] ([facility]) [address] [place], [address], 02/15/2024 17:10:08 02/14/20 24 02/15/2024 COMP. METAB OLIC PANEL (14) alkaline phosphatase 65 IU/L 44-121 normal Not Available [facility] ([facility]) [address] [place], [address], 02/15/2024 17:10:08 02/14/20 24 02/15/2024 COMP. METAB OLIC PANEL (14) AST (SGOT) 25 IU/L 0-40 normal Not Available [facility] ([facility]) [address] [place], [address], 02/15/2024 17:10:08 02/14/20 24 02/15/2024 COMP. METAB OLIC PANEL (14) ALT (SGPT) 20 IU/L 0-32 normal Not Available [facility] ([facility]) [address] [place], [address], 02/15/2024 17:10:08 02/14/2002/15/2024 HEMOG LOBIN A1C hemoglobin A1C 5.6 % 4.8-5. 6 normal Predi abete s: 5.7 - 6.4 Diabe tori: >6.4 Glyce rivera contr ol for adult s with diabe tori: <7.0 Not Available [facility] ([facility]) [address] [place], [address], 02/15/2024 17:10:08 02/14/2002/15/2024 TSH TSH 1.040 uIU/m L 0.450- 4.500 normal Not Available [facility] ([facility]) [address] [place], [address], 02/15/2024 17:10:09 02/14/2002/15/2024 ORESTES TIN ferritin 72 NG/mL 15-150 normal Not Available [facility] ([facility]) [address] [facility], [place], [address], 02/15/2024 17:10:09 02/14/20 24 02/14/2024 F2-IS OPROS TANE/ CREAT ININE F2-isoprosta sajan/creatini ne 0.65 NG/mg _cr <0.86 Eden ivette urina ry F2-Is opros tanes are assoc iated with an incre ased relat renea risk of coron keerthi heart disea se (CHD) (1). (Refe rence : 1-Amtt ruddy love et al. Circu latio n. 2004; 109: 843-8 48). This test is perfo rmed by a Liqui d Chrom atogr aphy- Tande m Mass Spect romet ry (LC/M S/MS) metho d. This test was devel oped and its perfo rmanc e taryn cteri stics deter mined by the [facility] It has not been clear ed or appro matthieu by the [place]. FDA. The [facility] is regul ated under Clini eleanor Labor atory Impro vemen t Amend ments (CLIA ) as quali fied to perfo rm high- compl exity testi ng. This test is used for clini eleanor purpo ses. It shoul d not be regar ded as inves tigat ional or for resea rc. Not Available [facility] - Manual Order Only [address], [place], [address], 03/06/2024 22:09:02 02/14/20 24 02/14/2024 F2-IS OPROS TANE/ CREAT ININE F2-isoprosta ne 0.48 NG/mL Not Available [facility] - Manual Order Only [address], [place], [address], 03/06/2024 22:09:02 02/14/20 24 02/14/2024 F2-IS OPROS TANE/ CREAT ININE creatinine, urine 74 mg/dL 20-275 Not Available [facility] - Manual Order Only [address], [place], [address], 03/06/2024 22:09:02 02/14/20 24 02/14/2024 MICRO ALBUM IN/CR EATIN INE microalbumin /creatinine Undete ctable mg/g_ cr <7.5 Micro album in in patie nt's urine sampl e is below assay detec tion; there fore, Micro album in/Cr eatin ine canno t be calcu lated . In the [facility] Heart Study , it was shown that healt hy indiv idual s (defi sruthi as non-h ypert ensiv e, non-d iabet ic, and witho ut preva lent CVD) with eleva ivette micro album in had appro ximat cherry 3x great er risk for devel oping cardi ovasc ular disea se. These level s were gende r-spe cific and noted to be >=3.9 mg/g Cr for men and >=7.5 mg/g Cr for women (1). A persi stent micro album in >30 mg/g Cr indic ates a loss in kidne y funct ion and is used in the diagn osis of chron ic kidne y disea se (2). (Refe renannie s: 1-Jose middleton et al. Circu latio n 2005; 112: 969-9 75. 2-Jorge L et al. Nephr ology 2013; 1:21) . Not Available [facility] - Manual Order Only [address], [place], [address], 03/06/2024 22:09:03 02/14/20 24 02/14/2024 MICRO ALBUM IN/CR EATIN INE microalbumin <3.0 mg/L Not Available [facility] - Manual Order Only [address], [place], [address], 03/06/2024 22:09:03 02/14/20 24 02/14/2024 FIBRI NOGEN ANTIG EN, NEPHE LOMET RY fibrinogen antigen 389 mg/dL 180-35 0 high Risk: Optim al <350 mg/dL ; High >=350 mg/dL . Refer ence Range : 180-3 50 mg/dL . Adult cardi ovasc ular event risk categ ory cut point s (opti mal, moder ate, high) are based on Sieme ns BN II and BN ProSp ec(TM ) Syste m packa ge inser t. Not Available [facility] Only [address], [place], [address], 03/06/2024 22:09:03 02/14/20 24 02/14/2024 APOLI POPRO TEIN B apolipoprote in B 77 mg/dL <90 Risk: Optim al <90 mg/dL ; Moder ate 90-11 9 mg/dL ; High >= 120 mg/dL ; Cardi ovasc ular event risk categ ory cut point s (opti mal, moder ate, high) are based on Natio n[facility] Lipid Assoc iatio n recom menda tiniru - Reinaldo renteria TA et al. J of Clin Lipid . 2015; 9: 129-1 69 and Isabella ERWIN et al. Endoc r Pract . 2017; 23(Cr ppl 2):1- 87. Not Available [facility] Order Only [address], [place], [address], 03/06/2024 22:09:04 02/14/20 24 02/14/2024 HSCRP hs-CRP 2.7 mg/L <1.0 high Refer ence Range : Optim al <1.0 mg/L, accor ding to Isabella ERWIN et al. Endoc r Pract .2017 ;23(S uppl 2):1- 87. The AHA/C DC Guide lines recom mend hs-CR P range s for ident ifyin g Relat renea Cardi ovasc ular Risk in patie nts ages >17 years : <1.0 mg/L Lower Relat renea Cardi ovasc ular Risk; 1.0-3 .0 mg/L [place] ge Relat renea Cardi ovasc ular Risk; 3.1-1 0.0 mg/L Hig[place] r Relat renea Cardi ovasc ular Risk. If resul t is betwe en 3.1 and 10.0 mg/L, consi kale retes ting in 1-2 weeks to exclu de a benig n trans ient eleva tion secon shonda to infec tion or infla mmati on from the basel ine CRP value . Persi stent eleva tions of >10.0 mg/L upon retes ting may be assoc iated with infec tion and infla mmati on. The AHA/C DC recom menda tions are based on Pearyris on TA, Mensa h [place], Nelli perez RW, et al. [facility] rs of infla mmati on and cardi ovasc ular disea se: appli catio n to clini eleanor and publi c healt h pract ice: A state ment for embert vinayre diana brito from the [facility] rs for Disea se Contr ol and Preve ntion and the Ameri can Heart Assoc iatio n. Circu latio n 2002; 107(3 ): 499-5 11. Not Available [facility] [facility] - Manual Order Only [address], [place], [address], 03/06/2024 22:09:04 02/14/20 24 02/14/2024 LIPID PANEL cholesterol, total 175 mg/dL <200 Not Available [facility] - Manual Order Only [address], [place], [address], 03/06/2024 22:09:05 02/14/20 24 02/14/2024 LIPID PANEL HDL cholesterol 100 mg/dL >49 Not Available [facility] - Manual Order Only [address], [place], [address], 03/06/2024 22:09:05 02/14/20 24 02/14/2024 LIPID PANEL triglyceride s 81 mg/dL <150 Not Available [facility] - Manual Order Only [address], [place], [address], 03/06/2024 22:09:05 02/14/20 24 02/14/2024 LIPID PANEL LDL cholesterol 59 mg/dL _(eleanor c) <100 Baldev able range <100 mg/dL for prima ry preve ntion ; <70 mg/dL for patie nts with CHD or diabe tic patie nts with >= 2 CHD risk facto rs. LDL-C is now calcu lated using the Kelly n-Hop kins calcu latnabil n, which is a valid ated novel metho d provi ding berkley r accur acy than the Fried aliza equat ion in the estim ation of LDL-C . Kelly whittington SS et al. EDDI. 2013; 310(1 9): 2061- 2068 (http ://ed ucati on.invi. [employer]/f aq/FA Q164) Not Available [facility] - Manual Order Only [address], [place], [address], 03/06/2024 22:09:05 02/14/20 24 02/14/2024 LIPID PANEL chol/HDL-C 1.8 calc <5.0 Not Available [facility] - Manual Order Only [address], [place], [address], 03/06/2024 22:09:05 02/14/20 24 02/14/2024 LIPID PANEL non-HDL cholesterol 75 mg/dL _(eleanor c) <130 For patie nts with diabe tori plus 1 major ASCVD risk facto r, treat ing to a non-H DL-C goal of <100 mg/dL (LDL- C of <70 mg/dL ) is consi stefanied a roslyn ruckero n. Not Available [facility] - Manual Order Only [address], [place], [address], 03/06/2024 22:09:05 02/14/20 24 02/14/2024 LP-PL A2 ACTIV ITY LP-pla2 activity 84 nmol/ min/m L <124 Relat renea Risk: Optim al <=123 nmol/ min/m L; High >123 nmol/ min/m L.Thi s test was devel oped and its phyllis tical perfo rmanc e taryn cteri stics have been deter mined by [facility] ometa marcio [facility] of [place] at [facility]. It has not been clear ed or appro matthieu by the U.S. Food and Drug Admin istra tion. This assay has been valid ated pursu ant to the CLIA regul ation s and is used for clini eleanor purpo ses. Not Available [facility] - Manual Order Only [address], [place], [address], 03/06/2024 22:09:05 02/14/20 24 02/14/2024 INSUL IN insulin 3.1 uIU/m L <18.5 Refer ence Range <=18. 4. Risk: Optim al <=18. 4, Moder ate NA, High >18.4 . Adult cardi ovasc ular event risk categ ory cut point s (opti mal, moder ate, high) are based on Insul in Refer ence inter natasha studi es perfo rmed at [facility] in 2021. Not Available [facility] - Manual Order Only [address], [place], [address], 03/06/2024 22:09:06 02/14/20 24 02/14/2024 MYELO PEROX IDASE myeloperoxid ase 471 pmol/ L <470 high Based on a high risk sub-p opula tion (N=92 0) defin ed as ambul atory stabl e patie nts witho ut acute coron keerthi syndr ome who under went elect renea diagn ostic coron keerthi angio graph y (1) and a refer ence range study of appar ently healt hy donor s, we have defin ed the follo wing cut-o ffs for MPO: A cut-o ff of <470 pmol/ L defin es an 'appa rentl y healt hy' popul ation at optim al relat renea risk for a cardi ovasc ular event , 470-5 39 pmol/ L defin es a popul ation at moder ate relat renea risk for a cardi ovasc ular event (2-fo ld incre ased risk of MACE at 3 years ), and > = 540 pmol/ L defin es a popul ation with a high relat renea risk for a cardi ovasc ular event . (Refe rence : 1. Michael et al. Am J Cardi ol. 2013; 111:4 65-47 0 and perso nal commu nicat ion with Michael et al). This test was rahel knowles and its phyllis tical perfo rmanc e taryn cteri stics have been deter mined by [facility] hamida sanchez of [place] cren[place] at [facility]. It has not been clear ed or appro matthieu by the U.S. Food and Drug Admin istra tion. This assay has been valid ated pursu ant to the CLIA regul ation s and is used for clini eleanor purpo ses. Not Available [facility] - Manual Order Only [address] [facility] [address], [place], [address], 03/06/2024 22:09:06 02/14/20 24 02/14/2024 VITAM IN D 25 HYDRO XY LC-MS /MS vitamin D 25 hydroxy by lc-MS/MS 60.9 NG/mL >29.9 Vitam in D, 25-Hy droxy repor ts arthur ntrat ions of two commo n forms , 25-OH D2 and 25-OH D3. 25-OH D3 indic ates both endog enous produ ction and suppl ement ation . 25-OH D2 is an indic ator of exoge nous sourc es, such as diet or suppl ement ation . Thera py is based on measu remen t of Total 25-OH D, with level s <20 ng/mL indic ative of Vitam in D defic iency , while level s betwe en 20 ng/mL and 30 ng/mL sugge st insuf ficie ncy. Optim al level s are >=30 ng/mL . For addit ional infor vilma n, plemauri e refer to http: //[facility] alan morales stdia gnost ics.c om/fa q/FAQ 199(T his link is being provi ded for abeba whittington/[facility] alan nal purpo ses only. )This test was devel benson and its phyllis tical perfo rmanc e taryn cteri stics have been deter mined by [facility] paul [place] [facility] of [place] at [facility]. It has not been clear ed or appro matthieu by the U.S. Food and Drug Admin istra tion. This assay has been valid ated pursu ant to the CLIA regul ation s and is used for clini eleanor purpo ses. Not Available [facility] - Manual Order Only [address], [place], [address], 03/06/2024 22:09:07 02/14/20 24 02/14/2024 OMEGA CHECK epa 0.8 %_by_ wt 0.2-2. 3 Not Available [facility] - Manual Order Only [address], [place], [address], 03/06/2024 22:09:07 02/14/20 24 02/14/2024 OMEGA CHECK dha 2.3 %_by_ wt 1.4-5. 1 Not Available [facility] - Manual Order Only [address], [place], [address], 03/06/2024 22:09:07 02/14/20 24 02/14/2024 OMEGA CHECK dpa 1.2 %_by_ wt 0.8-1. 8 Not Available [facility] - Manual Order Only [address], [place], [address], 03/06/2024 22:09:07 02/14/20 24 02/14/2024 OMEGA CHECK arachidonic acid 14.7 %_by_ wt 8.6-15 .6 Not Available [facility] - Manual Order Only [address], [place], [address], 03/06/2024 22:09:07 02/14/20 24 02/14/2024 OMEGA CHECK linoleic acid 22.9 %_by_ wt 18.6-2 9.5 Not Available [facility] Only [address], [place], [address], 03/06/2024 22:09:07 02/14/20 24 02/14/2024 OMEGA CHECK omegacheck (whole blood: epa+dpa+dha) 4.3 %_by_ wt >5.4 low Incre asing blood level s of long- chain n-3 fatty acids are assoc iated with a lower risk of sudde n cardi ac (1). Based on the top (75th perce ntile ) and botto m (25th perce ntile ) quart denis of the CHL refer ence popul ation , the follo wing relat renea risk categ ories were estab lishe d for [place] Check : A cut-o ff of >=5.5 % by wt defin es a popul ation at optim al relat renea risk, 3.8-5 .4% by wt defin es a popul ation at moder ate relat renea risk, and <=3.7 % by wt defin es a popul ation at high relat renea risk of sudde n cardi ac . The total ity of the scien tific evide nce demon strat es that when consu mptio n of fish oils is limit ed to 3 g/day or less of EPA and DHA, there is no signi fican t risk for incre ased bleed ing time beyon d the amari l range . A daily dosag e of 1 gram of EPA and DHA lower s the circu latin g trigl yceri varinder by about 7-10% withi n 2 to 3 weeks . (Refe rence : 1-Alb renée et al. NE. 2002; 346: 1113- 1118) .This test was devel oped and its phyllis tical perfo rmanc e taryn cteri stics have been deter mined by [facility] ometa [facility]olic [facility] [place] [facility] at [facility]. It has not been clear ed or appro matthieu by the U.S. Food and Drug Admin istra tion. This assay has been valid ated pursu ant to the CLIA regul ation s and is used for clini eleanor purpo ses. Not Available [facility] - Manual Order Only [address], [place], [address], 03/06/2024 22:09:07 02/14/20 24 02/14/2024 OMEGA CHECK omega-6 total 40.7 %_by_ wt [facility] measu res a numbe r of omega -6 fatty acids with AA and LA being the two most abund ant forms repor ivette. Not Available [facility] - Manual Order Only [address], [place], [address], 03/06/2024 22:09:07 02/14/20 24 02/14/2024 OMEGA CHECK omega-3 total 4.3 %_by_ wt Not Available [facility] - Manual Order Only [address], [place], [address], 03/06/2024 22:09:07 02/14/20 24 02/14/2024 OMEGA CHECK omega 6/omega 3 ratio 9.4 3.7-14 .4 Not Available [facility] - Manual Order Only [address], [place], [address], 03/06/2024 22:09:07 02/14/20 24 02/14/2024 OMEGA CHECK arachidonic acid/epa ratio 18.7 3.7-40 .7 Not Available [facility] - Manual Order Only [address], [place], [address], 03/06/2024 22:09:07 02/14/20 24 02/14/2024 (MARCOS) ankle brach ial index * Arm- Left 149 Not Available [facility] [address], [place], [address], 02/14/2024 14:45:01 02/14/20 24 02/14/2024 (MARCOS) ankle brach ial index * Leg- Right 200 Not Available [address], [place], [address], 02/14/2024 14:45:01 02/14/20 24 02/14/2024 (MARCOS) ankle brach ial index * Leg- Left 196 Not Available [address], [place], [address], 02/14/2024 14:45:01 02/14/20 24 02/14/2024 (MARCOS) ankle brach ial index * MARCOS Pressure- Right 1.34 Not Available [address], [place], [address], 02/14/2024 14:45:01 02/14/20 24 02/14/2024 (MARCOS) ankle brach ial index * MARCOS Pressure- Left 1.32 Not Available [address], [place], [address], 02/14/2024 14:45:01 07/03/19 25 07/04/2024 UA/M W/RFL X CULTU REMAVERICKI NE specific gravity 1.014 1.005- 1.030 normal Not Available [facility] ([facility]) [address] [place], [address], 07/04/2024 07:11:26 07/03/19 25 07/04/2024 UA/M W/RFL X MANUEL OSMAN NE pH 7.0 5.0-7. 5 normal Not Available [facility] ([facility]) [address] [place], [address], 07/04/2024 07:11:26 07/03/19 25 07/04/2024 UA/M W/RFL X CULTU RE, ROUTI NE urine-color Yellow yellow Not Available [facility] ([facility]) [address] [place], [address], 07/04/2024 07:11:26 07/03/19 25 07/04/2024 UA/M W/RFL X CULTU RE, ROUTI NE appearance Clear clear Not Available [facility] ([facility]) [address] [facility], [place], [address], 07/04/2024 07:11:26 07/03/19 25 07/04/2024 UA/M W/RFL X CULTU RE, ROUTI NE WBC esterase Negati ve negati ve Not Available [facility] ([facility]) [address] [place], [address], 07/04/2024 07:11:26 07/03/19 25 07/04/2024 UA/M W/RFL X CULTU REMAVERICKI NE protein Negati ve negati ve/tra ce Not Available [facility] ([facility]) [address] [place], [address], 07/04/2024 07:11:26 07/03/19 25 07/04/2024 UA/M W/RFL X CULTU REMAVERICKI NE glucose Negati ve negati ve Not Available [facility] ([facility]) [address] [place], [address], 07/04/2024 07:11:26 07/03/19 25 07/04/2024 UA/M W/RFL X CULTU RE, ROUTI NE ketones Negati ve negati ve Not Available [facility] ([facility]) [address] [place], [address], 07/04/2024 07:11:26 07/03/19 25 07/04/2024 UA/M W/RFL X CULTU RE, ROUTI NE occult blood Negati ve negati ve Not Available [facility] ([facility]) [address] [place], [address], 07/04/2024 07:11:26 07/03/19 25 07/04/2024 UA/M W/RFL X CULTU RE, ROUTI NE bilirubin Negati ve negati ve Not Available [facility] ([facility]) [address] [facility], [place], [address], 07/04/2024 07:11:26 07/03/19 25 07/04/2024 UA/M W/RFL X CULTU RE, ROUTI NE urobilinogen ,semi-qn 0.2 mg/dL 0.2-1. 0 normal Not Available [facility] ([facility]) [address] [facility], [place], [address], 07/04/2024 07:11:26 07/03/19 25 07/04/2024 UA/M W/RFL X CULTU RE, ROUTI NE nitrite, urine Negati ve negati ve Not Available [facility] ([facility]) [address] [facility], [place], [address], 07/04/2024 07:11:26 07/03/19 25 07/04/2024 UA/M W/RFL X CULTU RE, ROUTI NE microscopic examination Commen t Micro scopi c follo ws if indic ated. Not Available [facility] ([facility]) [address] [facility], [place], [address], 07/04/2024 07:11:26 07/03/19 25 07/04/2024 UA/M W/RFL X CULTU RE, ROUTI NE microscopic examination See below: Micro scopi c was indic ated and was perfo rmed. Not Available [facility] ([facility]) [address] [facility], [place], [address], 07/04/2024 07:11:26 07/03/19 25 07/04/2024 UA/M W/RFL X CULTU RE, ROUTI NE WBC None seen /hpf 0 - 5 Not Available [facility] ([facility]) [address], [place], [address], 07/04/2024 07:11:26 07/03/19 25 07/04/2024 UA/M W/RFL X CULTU RE, ROUTI NE RBC None seen /hpf 0 - 2 Not Available [facility] ([facility]) [address], [place], [address], 07/04/2024 07:11:26 07/03/19 25 07/04/2024 UA/M W/RFL X CULTU RE, ROUTI NE epithelial cells (non renal) 0-10 /hpf 0 - 10 Not Available [facility] ([facility]) [address] [facility], [place], [address], 07/04/2024 07:11:26 07/03/19 25 07/04/2024 UA/M W/RFL X CULTU RE, ROUTI NE epithelial cells (renal) PEDIATRICS PHYSICIAN Not Available [facility] ([facility]) [address], [place], [address], 07/04/2024 07:11:26 07/03/19 25 07/04/2024 UA/M W/RFL X CULTU RE, ROUTI NE casts None seen /lpf none seen Not Available [facility] ([facility]) [address] [facility], [place], [address], 07/04/2024 07:11:26 07/03/19 25 07/04/2024 UA/M W/RFL X CULTU RE, ROUTI NE cast type PEDIATRICS PHYSICIAN Not Available [facility] ([facility]) [address] [facility], [place], [address], 07/04/2024 07:11:26 07/03/19 25 07/04/2024 UA/M W/RFL X CULTU RE, ROUTI NE crystals PEDIATRICS PHYSICIAN Not Available [facility] ([facility]) [address] [facility], [place], [address], 07/04/2024 07:11:26 07/03/19 25 07/04/2024 UA/M W/RFL X CULTU RE ROUTI NE crystal type PEDIATRICS PHYSICIAN Not Available [facility] ([facility]) [address] [facility], [place], [address], 07/04/2024 07:11:26 07/03/19 25 07/04/2024 UA/M W/RFL X CULTU RE, ROUTI NE mucus threads PEDIATRICS PHYSICIAN Not Available [facility] ([facility]) [address] [facility], [place], [address], 07/04/2024 07:11:26 07/03/19 25 07/04/2024 UA/M W/RFL X CULTU RE, ROUTI NE bacteria None seen none seen/f ew Not Available [facility] ([facility]) [address] [facility], [place], [address], 07/04/2024 07:11:26 07/03/19 25 07/04/2024 UA/M W/RFL X CULTU RE ROUTI NE yeast PEDIATRICS PHYSICIAN Not Available [facility] ([facility]) [address] [facility], [place], [address], 07/04/2024 07:11:26 07/03/19 25 07/04/2024 UA/M W/RFL X CULTU REMANUEL NE trichomonas PEDIATRICS PHYSICIAN Not Available [facility] ([facility]) [address] [facility], [place], [address], 07/04/2024 07:11:26 07/03/19 25 07/04/2024 UA/M W/RFL X CULTU RE ROUTI NE comment PEDIATRICS PHYSICIAN Not Available [facility] ([facility]) [address] [place], [address], 07/04/2024 07:11:26 07/03/19 25 07/04/2024 UA/M W/RFL X CULTU RE, ROUTI NE urinalysis reflex Commen t This speci men will not refle x to a Urine Cultu re. Not Available [facility] ([facility]) [address] [facility], [place], [address], 07/04/2024 07:11:26 07/03/19 25 07/03/2024 urina lysis , dipst ick Leukocytes Negati ve Not Available [address], [place], [address], 07/03/2024 13:22:43 07/03/19 25 07/03/2024 urina lysis , dipst ick Nitrite negati ve Not Available [address], [place], [address], 07/03/2024 13:22:43 07/03/19 25 07/03/2024 urina lysis , dipst ick Urobilinogen Normal Not Available [address], [place], [address], 07/03/2024 13:22:43 07/03/19 25 07/03/2024 urina lysis , dipst ick Protein Trace Not Available [address], [place], [address], 07/03/2024 13:22:43 07/03/19 25 07/03/2024 urina lysis , dipst ick pH 7 Not Available [address], [place], [address], 07/03/2024 13:22:43 07/03/19 25 07/03/2024 urina lysis , dipst ick Blood Negati ve Not Available [address], [place], [address], 07/03/2024 13:22:43 07/03/19 25 07/03/2024 urina lysis , dipst ick Specific Temple 1.015 Not Available [facility] [address] [facility] [address], [place], [address], 07/03/2024 13:22:43 07/03/19 25 07/03/2024 urina lysis , dipst ick Ketone Negati ve Not Available [facility] [address] [facility] [address], [place], [address], 07/03/2024 13:22:43 07/03/19 25 07/03/2024 urina lysis , dipst ick Bilirubin Negati ve Not Available [facility] [address] [facility] [address], [place], [address], 07/03/2024 13:22:43 07/03/19 25 07/03/2024 urina lysis , dipst ick Glucose Normal Not Available [facility] [address] [facility] [address], [place], [address], 07/03/2024 13:22:43 07/03/19 25 07/03/2024 urina lysis , dipst ick Appearance dark Not Available [facility] [address] [facility] [address], [place], [address], 07/03/2024 13:22:43 07/03/19 25 07/03/2024 urina lysis , dipst ick Color orange Not Available [facility] [address] [place] [address] [address], [place], [address], 07/03/2024 13:22:43 01/24/20 24 01/24/2024 XR, foot, 3 or more view No observ ation record ed. [address], [place], [address], 01/25/2024 10:52:28 01/24/20 24 01/24/2024 XR, foot, 3 or more view No observ ation record ed. [address] [place], [address], 01/25/2024 10:52:03 01/24/20 24 01/24/2024 XR, lumba r spine , 2 view No observ ation record ed. [facility] [address], [place], [address], 01/25/2024 10:47:44 02/14/20 24 02/14/2024 audio gram No observ ation record ed. [email or web address] [facility] [address] [facility] [address], [place], [address], 02/14/2024 17:23:48 02/14/20 24 02/14/2024 elect malikar diogr am No observ ation record ed. [email or web address] [facility] [address] [facility] [address], [place], [address], 02/16/2024 08:39:10 03/20/20 24 03/19/2024 MAMMO , scree emy, tomos ynthe sis, bilat eral, w/ CAD No observ ation record ed. [address] [facility] [address], [place], [address], 03/21/2024 12:08:39 06/04/20 24 05/28/2024 DEXA No observ ation record ed. [facility] [address], [place], [address], 06/04/2024 16:57:26 08/22/19 25 08/21/2024 XR, knee, 4 or more view Indica tion: Right knee pain Compar krystal: No prior xrays are availa ble for compar krystal Right knee(s ) 4 views: modera te to severe tricom partme ntal arthri tis with genu varum alignm ent, periar ticula r osteop hytes visual ized in all compar tments Signed by: Yesenia medina on 3/11/2 025 1:42 PM Reason for Exam:- >PAIN Releas e to patien t->Rou lynda Releas e [facility] [address] [facility] [address], [place], [address], 08/21/2024 13:53:40 Result Notes None recorded. Problems Name Problem SNOMED Code Status Onset Date Resolution Date Notes Provider Name and Address Organization Details Recorded Time Cough 13380225 Active 2015 Cough;Pro blem Note: usual broad different ial. Elements of rhinitis suspect. Chest CT August 2012-see record. 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 Not Available [facility] 9 22:03:19 Benign essentia l hyperten matthew 6779330 Active 2013 Hypertens ion, Benign Essential ; Not Available [facility] 9 22:03:19 Arthropa thy 217398043 Active 2016 Osteoarth ritis; Not Available [facility] 9 22:03:19 Lipoprot ein above referenc e range 322129361 Active 2018 L0 (a) elevation Angel Luis Mora MD [address] [facility] [address], [place], [address], [place] - [facility] 9 12:29:17 Cystocel e and rectocel e co-occur rent with incomple te uterovag inal prolapse 669103815 Active 2018 Angel Luis Mora MD [address], [place], [address], [place] [facility] 9 13:08:59 Coronary atherosc lerosis 626092118 Active 2018 2-40%-act renea plaque and inflammat ion on CIMT 03/01 Angel Luis Mora MD [address], [place], [address], [place] [facility] [place] 9 12:23:00 Body mass index 25-29 - overweig ht 692034019 Active 2018 Stacey Kelly null, [place] - [facility] [place] 9 12:20:39 Finding of body mass index 481255275 Active 2018 Glenny gaspar null, [place] - [facility] [place] 9 11:27:51 Gastroes ophageal reflux disease 900510405 Active 2018 EGD 08/29-file d Vidhya, probably Barretts Angel Luis Mora MD [address], [place], [address], [place] [facility] [place] 9 16:50:02 Dean' s esophagu s 139164685 Active 2018 Angel Luis Mora MD [address], [place], [address], [place] [facility] [place] 9 12:07:43 Environm ental allergy 369950438 Active 2020 Angel Luis Mora MD [address], [place], [address], [place] [facility] [place] 1 15:01:32 Hypersom belinda 72720183 Active 2020 MD Tom Coyne [address], [place], [address], [place] [facility] [place] 1 15:02:43 Diarrhea 62426701 Active 2020 Angel Luis Mora MD [address], [place], [address], [place] [facility] [place] 1 11:42:25 Easy bruising 618467489 Active 2020 Angel Luis Mora MD [address], [place], [address], [place] - [facility] [place] 1 11:43:30 Sleep apnea 49887521 Active 2020 Angel Luis Mora MD [address], [place], [address] [place] [address], [place] [facility] [place] 1 15:45:46 Iron deficien cy 37783032 Active 2021 ferritin 11 as of 08/24/21 Angel Luis Mora MD [address], [place], [address] [place] [address], [place] [facility] [place] 2 09:03:15 Osteoart hritis 336975750 Active 2022 Angel Luis Mora MD [address], [place], [address] [place] [address], [place] - [facility] [place] 3 14:19:41 Hyponatr emia 63870916 Active 2022 Angel Luis Mora MD [address], [place], [address], [place] - [facility] [place] 3 14:19:42 Depressi ve disorder 99868642 Active 2022 Angel Luis Mora MD [address], [place], [address] [place] [address], [place] - [facility] [place] 3 13:55:50 Chapped skin 882310157 Active 2023 Anegl Luis Mora MD [address], [place], [place], [address] [place] [address], [place] / [place] 4 10:10:15 Chronic cough 84694570 Active 2024 Angel Luis Mora MD [address], [place], [address] [place] [address], [place] 5 12:08:08 Seasonal affectiv e disorder 246053160 Active 2024 Angel Luis Mora MD [address] [facility], [place], [address], [place] 5 16:41:56 [...] 11:22:04 11/17 Medicare Annual Wellness completed Kaitlin Loenila [place] 1 10:53:56 06/04 esophagogastroduodenosc opy completed [place]aitlin [place]ila [place] 1 11:31:29 01/17 Screening Mammogram completed [place]aitlin [place]ila [place] 1 11:28:21 12/09 primary lumbar discectomy completed Angel Luis Mora MD [address], [place], [address], [place] 0 13:10:28 11/13 Pain Assessment completed [place]aitlin [place]ila [place] 11:11:12 11/13 Home Safety Screen completed [place]aitlin [place]ila [place] 0 11:09:31 03/16 total excision of bilateral fallopian tubes completed Angel Luis Mora MD [address], [place], [address], [place] / [place] 9 14:00:41 02/27 Dxa bone density yessy vrt fx completed [place]aitlin [place]ila [place] 15:44:00 10/18 RADHAP AWE completed Angel Luis Mora MD [address] [facility], [place], [address], [place] 13:53:04 [...] 09:55:38 07/07 Screening Mammogram completed [place]aitlin Leonila [place] / [place] 16:23:08 [...] ders / [place] 0 15:39:15 Imaging Results Imaging Date Name Status LastModified by Organization Details LastModified Time 01/24/2024 XR, foot, 3 or more view completed [address], [place], [address], 01/25/2024 10:52:28 01/24/2024 XR, foot, 3 or more view completed [address] [place], [address], 01/25/2024 10:52:03 01/24/2024 XR, lumbar spine, 2 view completed [facility] [address], [place], [address], 01/25/2024 10:47:44 02/14/2024 audiogram active [email or web address] [address], [place], [address], 02/14/2024 17:23:48 02/14/2024 electrocardiogram completed [email or web address] [address] [facility] [address], [place], [address], 02/16/2024 08:39:10 03/19/2024 MAMMO, screening, tomosynthesis, bilateral, w/ CAD completed [facility] [address], [place], [address], 03/21/2024 12:08:39 05/28/2024 DEXA completed [address] [facility] [address], [place], [address], 06/04/2024 16:57:26 08/21/2024 XR, knee, 4 or more view completed [address] [facility] [address] [facility] [address], [place], [address], 08/21/2024 13:53:40 Procedure Notes None recorded. Medical Equipment None Reported. Allergies Allergen ID Allergen Name Allergen Category Reaction Reaction Severity Criticality Documentation Date Start Date Code Code System Note Provider Name and Address Organization Details Recorded Time 6314 Lunesta medicatio n Not available Not available Not available 09/11/2018 20561 4 RxNorm React ion: face/ neck swell ing; Not Available [facility] 9 05:48:00 Medications Name Sig Start Date [...] prednison e 20 mg tablet 11/30 completed Pulmongeorge y, has startedt aking this now 12/10 [...] route. 09/16 completed Claribel Pelaez - sleep PEDIATRICS PHYSICIAN Not Available Not Available Not Available [employer] [...] height Body mass index (BMI) Body weight Oxygen saturation Oxygen saturation in Arterial blood by Pulse oximetry Heart rate Systolic blood pressure Diastolic blood pressure Provider Name and Address Organization Details Last Updated DateTime 4 162.56 cm 27.8 kg/m2 08010.9 6 g 97 % 97 % 72 /min 132 mm[Hg] 91 mm[Hg] Kaitlin Mora / [place] 4 14:59:44 Date Recorded Body height Body mass index (BMI) Body weight Oxygen saturation Oxygen saturation in Arterial blood by Pulse oximetry Heart rate Systolic blood pressure Diastolic blood pressure Provider Name and Address Organization Details Last Updated DateTime 4 162.56 cm 27.4 kg/m2 23438.3 4 g 98 % 98 % 80 /min 120 mm[Hg] 90 mm[Hg] Sun Mora / [place] 4 13:09:15 Date Recorded Body height Body mass index (BMI) Body weight Oxygen saturation Oxygen saturation in Arterial blood by Pulse oximetry Heart rate Systolic blood pressure Diastolic blood pressure Provider Name and Address Organization Details Last Updated DateTime 5 162.56 cm 27.7 kg/m2 98865.8 1 g 98 % 98 % 58 /min 143 mm[Hg] 88 mm[Hg] Paulino JOYNER - [place] / [place] 5 11:29:57 Date Recorded Body height Body mass index (BMI) Body weight Heart rate Oxygen saturation Oxygen saturation in Arterial blood by Pulse oximetry Systolic blood pressure Diastolic blood pressure Provider Name and Address Organization Details Last Updated DateTime 5 162.56 cm 26.5 kg/m2 64190.3 g 59 /min 97 % 97 % 127 mm[Hg] 86 mm[Hg] Kala Mora / [place] 5 16:13:52 Social History Question Answer Notes LastModified by NICE Details LastModified Time Tobacco Smoking Status Never Smoker Not Available [facility] 04/15/2020 03:38:50 What Is Your Level Of Caffeine Consumption? Moderate 1 Mug Coffee/d, 1 Iced Tea/d [id number] Information not available 04/15/2020 Education 2 Year College Information not available 03/31/2021 Marital Status Informatio n not available 03/31/2021 What Was The Date Of Your Most Recent Tobacco Screening? 02/14/2024 Information not available 02/14/2024 Sex: Unknown Functional Status Question Answer Note LastModified by NICE Details LastModified Time What is your level of alcohol consumption? 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 Information not available 03/31/2021 What is your [...] Influenza, recombinant, trivalent, PF 4 completed Sun Mendez null, [facility] 03/02/2024 14:04:12 Tdap 9 completed Not Available [facility] 06/30/2019 02:25:25 zoster, unspecified formulation 3 completed Not Available [facility] 01/19/2023 15:01:25 Influenza, recombinant, quadrivalent, PF 8 [...] mL dose 1 completed Germania London null, [facility] / [place] 10/05/2022 13:14:56 COVID-19, mRNA, LNP-S, PF, 30 mcg/0.3 mL dose 1 completed Germania London null, [facility] / [place] 10/05/2022 13:15:12 pneumococcal polysaccharide PPV23 0 completed Guerita Burr null, [facility] 12/05/2019 15:26:41 COVID-19, mRNA, LNP-S, bivalent, PF, 50 mcg/0.5 mL or 25mcg/0.25 mL dose 2 completed Germania London null, [facility] / [place] 10/05/2022 13:16:47 Influenza, recombinant, quadrivalent, PF 0 completed Germania [place] null, [place] 03/24/2020 14:12:14 Hep A, adult 9 completed Not Available [facility] 06/30/2019 02:25:25 COVID-19, mRNA, LNP-S, PF, 100 mcg/0.5mL dose or 50 mcg/0.25mL dose 1 completed Guerita Burr [place] 03/28/2021 12:02:10 Influenza, recombinant, quadrivalent, PF 1 completed Germania [place] 05/25/2021 14:49:06 zoster recombinant 1 completed Germania [place] 05/25/2021 14:49:06 Influenza, high-dose, quadrivalent, PF 2 completed Guerita Burr [place] 04/06/2022 13:44:54 Past Encounters Encounter ID Performer Location Encounter Start Date Encounter Closed Date Diagnosis/Indication Diagnosis SNOMED-CT Code Diagnosis ICD10 Code Diagnosis Note [id number] Angel Luis Mora MD [facility] [place] [address] 08/28/2018 15:26:45 08/28/2018 16:28:45 Pain of left shoulder joint 0133664122 8658145 M25.512 consider rotator cuff injury/tea r, labral tear. 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 Amaya tomorrow. Intermitte nt free reflux. Possible candidate for erythromyc in protocol Arthropathy 570279268 M1 2.9 hands, low back Cough 52907318 R05 extensivel y worked up. Gastroesop hageal reflux contributo ry. Abnormal chest CT-long stable however. He notes pulmonolog ist Active or passive immunization 023645393 Z23 [id number] Angel Luis Mora MD [facility] [address] [place] [address] 01/01/2019 12:27:10 01/01/2019 13:11:37 Scoliosis deformity of spine 806301142 M41.9 Arthropathy 433688344 M1 2.9 hands, low back-see above Cystocele and rectocele co-occurrent with incomplete uterovaginal prolapse 226160394 N81.2 surgical consultati on pending Lipoprotei n above reference range 621606032 E78.41 [id number] Angel Luis Mora MD [facility] [address] [place] [address] 02/27/2019 12:13:33 02/27/2019 15:54:24 Body mass index 25-29 - overweight 567289893 Z68.27 Prolapse o f female genital organs 88900128 N81.9 very low surgical risk-below 0.5% by Chuck criteria (revised cardiac risk index). Active or passive immunization 835451660 Z23 [id number] Angel Luis Mora MD [facility] [address] [place] [address] 03/26/2019 15:44:16 03/26/2019 16:42:22 Coronary atherosclerosis 542233872 I25.10 Lipoprotei n above reference range 513860444 E78.41 Benign ess ential hypertension 3774942 I10 with increased fluid retention. His sodium and potassium issues, we'll try low-dose loop diuretic [id number] Angel Luis Mora MD [facility] [address] [place] [address] 04/20/2019 12:05:22 04/20/2019 12:46:58 Abdominal pain 06807986 R10.9 Nausea 476919465 R11.0 isolated symptom. [id number] Angel Luis Mora MD [facility] [place] [place] [address] 04/30/2019 11:16:51 04/30/2019 15:20:42 Body mass index 25-29 - overweight 970840719 Z68.26 Benign ess ential hypertension 1090450 I10 [id number] Angel Luis Mora MD [facility] [address] [place] [address] 05/25/2019 13:34:32 05/25/2019 14:45:21 Body mass index 25-29 - overweight 096920282 Z68.25 Active or passive immunization 583784192 Z23 Dean's esophagus [address] Amaya tomorrow. Intermitte nt free reflux. Possible candidate for erythromyc in protocol Benign ess ential hypertension 3685948 I10 improved control. Over 30 min.-great er than 50% counseling Lipoprotei n above reference range 342561679 E78.41 [id number] Angel Luis Mora MD [facility] [address] [place] [address] 08/20/2019 12:16:41 08/20/2019 13:16:43 Body mass index 25-29 - overweight 840544745 Z68.26 Benign ess ential hypertension 8456520 I10 acceptable control Arthropathy 148307486 M1 2.9 hands, low back-see above [id number] Angel Luis Mora MD [facility] [address] [place] [address] 10/18/2019 15:13:38 10/18/2019 16:50:32 Acute low back pain 866679490 M54.5 no sinister features. Quite demonstrat renea however. On steroids. Short-term opioid reasonable . MRI was scheduled for today but she postponed to Tuesday because of her symptom severity Nausea and vomiting 1691999 R11.2 [id number] Angel Luis Mora MD [facility] [place] [place] [address] 10/23/2019 12:28:23 10/23/2019 14:00:54 Benign essential hypertension 0690633 I10 acceptable control-fo r now. Scoliosis deformity of spine 997326504 M41.9 Acute low back pain 2788 78244 M54.5 no sinister features. Quite demonstrat renea earlier however. On steroids. Short-term opioid \has been helpful. MRI completed. Results being sought now. Sacroiliac joint dysfunctio n may play a role. PT likely next option. addendum: MRI report reviewed. New L3 disc herniation . Discussed with patient. Arrange physical therapy at [facility]. On principle referring to Dr. Hardeep Barnard. Conservati ve therapy may suffice Nausea 593728398 R11.0 improving. See above narrative at last visit. We'll recheck electrolyt es and white count [id number] Angel Luis Mora MD [facility] [address] [place] [address] 11/14/2019 08:44:45 11/14/2019 14:07:08 Adult health examination 223739213 Z00.00 [id number] Angel Luis Mora MD [facility] [address] [place] [address] 12/05/2019 13:46:35 12/05/2019 15:29:23 Dean's esophagus 381717155 K22.[address] Amaya tomorrow. Intermitte nt free reflux. Possible candidate for erythromyc in protocol Benign ess ential hypertension 8526926 I10 acceptable control-fo r now. Benign navya plasm of meninges 331086300 D32.9 Coronary atherosclerosis 293053509 I25.10 Cough 20279331 R05 extensivel y worked up. Gastroesop hageal reflux contributo ry. Abnormal chest CT-long stable however. He notes pulmonolog ist. Even earwx may contribute Active or passive immunization 781202111 Z23 [id number] Angel Luis Mora MD [facility] [address] [place] [address] 03/24/2020 13:31:59 03/24/2020 14:54:00 Administration of influenza vaccine 76230100 Z23 Body mass index 25-29 - overweight 390780574 Z68.26 Trochanter ic bursitis of right hip 4202493776 85542 M70.61 [id number] Angel Luis Mora MD [facility] [address] [place] [address] 06/03/2020 12:57:46 06/03/2020 13:57:59 Renewal of prescription 611253161 Z76.0 Dean's esophagus [address] Amaya tomorrow. Intermitte nt free reflux. Possible candidate for erythromyc in protocol Cough 07406119 R05 extensivel y worked up. Gastroesop hageal reflux contributo ry. Abnormal chest CT-long stable however. He notes pulmonolog ist. Even earwx may contribute . More broadly I think a neurogenic cause for this and her other symptoms can be supported. I have suggested increasing gabapentin to one twice daily and 2 at night-a total of 2400 mg daily [id number] Angel Luis Mora MD [facility] [address] [place] [address] 11/05/2020 10:55:33 11/05/2020 11:43:24 Body mass index 25-29 - overweight 558802340 Z68.25 Benign ess ential hypertension 1263204 I10 acceptable control-fo r now. Insomnia 167591369 G47.0 0 See above discussion [id number] Angel Luis Mora MD [facility] [address] [place] [address] 11/17/2020 10:26:54 11/17/2020 11:45:04 Adult health examination 884210839 Z00.00 Arthropathy 976995535 M1 2.9 hands, low back-see above Benign ess ential hypertension 4825920 I10 acceptable control-fo r now. [id number] Angel Luis Mora MD [facility] [address] [place] [address] 12/09/2020 14:07:06 12/09/2020 15:43:07 Dean's esophagus 455259376 K22.[address] Amaya tomorrow. Intermitte nt free reflux. Possible candidate for erythromyc in protocol Benign ess ential hypertension 9096094 I10 acceptable control-fo r now.Unusua l lability of greetings from home sometimes as low as 70's over 40s and at other times high.No evidence for headaches, palpitatio ns or excessive sweating Benign navya plasm of meninges 785283100 D32.9 Coronary atherosclerosis 429444237 I25.10 Cough 92656815 R05 extensivel y worked up. Gastroesop hageal reflux contributo ry. Abnormal chest CT-long stable however. He notes pulmonolog ist. Even earwx may contribute . More broadly I think a neurogenic cause for this and her other symptoms can be supported. I have suggested increasing gabapentin to one twice daily and 2 at night-a total of 2400 mg daily Impacted cerumen 9524245 6 H61.20 Environmental allergy 42 6560053 T78.49XA Remote testing. More recent test again [place] showing some allergy to a mild degree. Discussed Flonase, OTC options. Hypersomnia 70343475 G47 .10 Scoliosis deformity of spine 871054833 M41.9 Renewal of prescription 023118662 Z76.0 [id number] Angel Luis Mora MD [facility] [address] 7 01/12/2021 11:12:48 01/12/2021 11:51:34 Dean's esophagus 888003990 K22.[address] Amaya tomorrow. Intermitte nt free reflux. Possible candidate for erythromyc in protocol Diarrhea 82794856 R19.7 No new exposures. Does have cystern but does not drink from this and also has had testing and filtering. We discussed the differenti al that could include the high dose Nexium, microscopi c colitis, small bowel overgrowth , I suppose Giardia. Short-term empirical trial of Cipro discussed and she embraces this. Easy bruising 323784692 R58 No doubt combinatio n of actinic damage and age. No orifice bleeding. I recommende d reducing aspirin perhaps to once weekly [id number] Angel Luis Mora MD [facility] [address] [place] [address] 02/03/2021 12:57:06 02/03/2021 14:17:01 Diarrhea 03565527 R19.7 No new exposures. Does have cystern but does not drink from this and also has had testing and filtering. We discussed the differenti al that could include the high dose Nexium, microscopi c colitis, small bowel overgrowth , I suppose Giardia. A considerat ion. Please see above. Seeing Dr. Amaya next week. I propose a glucose breath test Benign ess ential hypertension 8756244 I10 No classic features for pheochromo cytoma but will check urine [id number] Angel Luis Mora MD [facility] [address] [place] [address] 03/28/2021 11:06:49 03/28/2021 16:08:13 Active or passive immunization 330573681 Z23 [id number] Angel Luis Mora MD [facility] [address] [place] [address] 03/31/2021 12:55:21 03/31/2021 13:45:09 Dean's esophagus 802257757 K22.[address] Amaya tomorrow. Intermitte nt free reflux. Possible candidate for erythromyc in protocol Benign ess ential hypertension 4915440 I10 Improved and stable History suggest possible-P OTS-if symptoms escalate may call for additional evaluation with tilt table Cough 67037518 R05.3 Refractory . Full dose gabapentin not helpful. Will try pregabalin [id number] Angel Luis Mora MD [facility] [address] [place] [address] 04/22/2021 15:14:33 04/22/2021 16:37:10 Dean's esophagus 105390216 K22.[address] Amaya tomorrow. Intermitte nt free reflux. Possible candidate for erythromyc in protocol Cough 86711019 R05.3 Refractory . Full dose gabapentin not helpful. Will try pregabalin Gastroesop hageal reflux disease 016066446 K21.9 Sleep apnea 78259116 G47 .30 severe [id number] Angel Luis Mora MD [facility] [address] [place] [address] 05/25/2021 13:55:14 05/25/2021 15:17:42 Administration of influenza vaccine 26157446 Z23 Active or passive immunization 953366350 Z23 Body mass index 20-24 - normal 055862503 Z68.24 Cough 17124476 R05.3 Refractory . We will titrate up gradually to 300 mg pregabalin daily Sleep apnea 83709726 G47 .30 severe-Str vannessa indication s for CPAP. Some challenges getting adjusted and needs expert assistance through sleep specialist [id number] Angel Luis Mora MD [facility] [address] [place] [address] 08/25/2021 13:29:39 08/25/2021 14:14:33 Cough 34358011 R05.3 Refractory . Pregabalin not effective. 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 [id number] Angel Luis Mora MD [facility] [address] [place] [address] 11/26/2021 09:09:43 11/26/2021 11:30:14 Adult health examination 697771202 Z00.00 Arthropathy 903541372 M1 2.9 hands, low back-see above Benign ess ential hypertension 6747006 I10 Improved and stable History suggest possible-P OTS-if symptoms escalate may call for additional evaluation with tilt table [id number] Angel Luis Mora MD [facility] [address] [place] [address] 12/10/2021 13:57:44 12/10/2021 15:45:49 Renewal of prescription 520335885 Z76.0 Coronary atherosclerosis 938721183 I25.10 Gastroesop hageal reflux disease 740361570 K21.9 Lipoprotei n above reference range 465051857 E78.41 Dean's esophagus [address] Amaya tomorrow. Intermitte nt free reflux. Possible candidate for erythromyc in protocol Cough 71280934 R05.3 Refractory . Pregabalin not effective. Slow taper off Sleep apnea 80879342 G47 .30 severe-Imp roved on BiPAP [id number] Angel Luis Mora MD [facility] [address] [place] [address] 12/28/2021 14:02:01 12/28/2021 14:42:34 Glossitis 42225436 K14.0 Tiffani albicans a leading possibilit y in light of her recent steroid use. Can try magic mouthwash if nystatin not effective [id number] Angel Luis Mora MD [facility] [address] [place] [address] 04/06/2022 13:01:29 04/06/2022 15:23:33 Iron deficiency 65310093 E61.1 Liver enzy mes level above reference range 910135510 R74.01 Administra tion of influenza vaccine 08013859 Z23 [id number] Angel Luis Mora MD [facility] [address] [place] [address] 08/17/2022 12:51:33 08/17/2022 13:43:19 Body mass index 25-29 - overweight 717588948 Z68.25 Chronic sinusitis 335085 00 J32.9 On clinical grounds. Will image Chapped skin 726141730 R 23.8 [id number] Angel Luis Mora MD [facility] [address] [place] [address] 10/06/2022 13:33:17 10/06/2022 14:44:14 Osteoarthritis 725011124 M19.90 Hyponatremia 36625876 E8 7.1 see above Iron deficiency 83138918 E61.1 Sleep apnea 03478637 G47 .30 severe-Imp roved on BiPAP Motion sickness 30953159 T75.3XXS [id number] Angel Luis Mroa MD [facility] [address] [place] [address] 11/30/2022 12:39:34 11/30/2022 14:48:27 Adult health examination 075668652 Z00.00 Arthropathy 264819583 M1 2.9 hands, low back-see above Benign ess ential hypertension 7587682 I10 Improved and stable History suggest possible-P OTS-if symptoms escalate may call for additional evaluation with tilt table Osteoarthritis 825020270 M19.90 [id number] Angel Luis Mora MD [facility] [address] [place] [address] 12/20/2022 12:43:17 12/20/2022 14:52:43 Body mass index 25-29 - overweight 337937302 Z68.26 Renewal of prescription 970716338 Z76.0 Dean's esophagus [address] Amaya tomorrow. Intermitte nt free reflux. Possible candidate for erythromyc in protocol Coronary atherosclerosis 412075254 I25.10 Gastroesop hageal reflux disease 125368409 K21.9 Cough 61456787 R05.3 Refractory . Pregabalin not effective. Scoliosis deformity of spine 161817977 M41.9 Osteoarthritis 114293774 M19.90 Sleep apnea 41136076 G47 .30 severe-Imp roved on BiPAP Depressive disorder 3548 9007 F32.A [id number] Angel Luis Mora MD [facility] [address] [place] [address] 01/19/2023 15:00:10 01/19/2023 16:23:28 Body mass index 25-29 - overweight 304857668 Z68.26 Iron deficiency 46568867 E61.1 Cough 49877724 R05.3 Refractory . Pregabalin not effective. Depressive disorder 3548 9007 F32.A Improved? I suppose it is possible the duloxetine could be favorably impacting this [id number] Angel Luis Mora MD [facility] [address] [place] [address] 08/16/2023 09:13:21 08/16/2023 10:21:05 Body mass index 25-29 - overweight 645085229 Z68.27 Iron deficiency 90621340 E61.1 Benign ess ential hypertension 1694631 I10 Well-contr olled today. She would like to switch back to metoprolol which I think is very reasonable . Clearly labetalol is highly effective and quickly Sleep apnea 18297249 G47 .30 severe-Imp roved on BiPAP Chapped skin 576296502 R 23.8 recommende d Epiceram-s ampled Renewal of prescription 678787494 Z76.0 Benign navya plasm of meninges 154726125 D32.9 Cough 45313881 R05.3 Neurogenic component. Improved Scoliosis deformity of spine 891274653 M41.9 Responding to spinal stimulator [id number] Angel Luis Mora MD [facility] [address] [place] [address] 02/14/2024 14:34:47 02/14/2024 15:57:39 Adult health examination 200827666 Z00.00 Arthropathy 622827171 M1 2.9 hands, low back-see above Benign ess ential hypertension 6348900 I10 Well-contr olled today. She would like to switch back to metoprolol which I think is very reasonable . Clearly labetalol is highly effective and quickly Depressive disorder 3548 9007 F32.A Improved? I suppose it is possible the duloxetine could be favorably impacting this Osteoarthritis 822838843 M19.90 Current drinker 356317 F10.90 [id number] Angel Luis Mora MD [facility] [address] [place] [address] 03/02/2024 13:02:23 03/02/2024 14:14:40 Active or passive immunization 020644940 Z23 Body mass index 25-29 - overweight 479870417 Z68.27 Benign ess ential hypertension 2940721 I10 Well-contr olled today. She would like to switch back to metoprolol which I think is very reasonable . Clearly labetalol is highly effective and quickly Renewal of prescription 187085811 Z76.0 Gastroesop hageal reflux disease 837800946 K21.9 Coronary atherosclerosis 462842802 I25.10 Dean's esophagus [address] Amaya tomorrow. Intermitte nt free reflux. Possible candidate for erythromyc in protocol Cough 45732651 R05.3 Neurogenic component. Improved-D uloxetine helpful Postmenopausal state 764 38196 Z78.0 [id number] Angel Luis Mora MD [facility] [address] [place] [address] 07/03/2024 12:34:00 07/03/2024 13:28:45 Dysuria 81036459 R30.0 Pain of knee region 1003 458237 M25.561 Medial collateral ligament sprain versus meniscal tear. Injected Acute glossitis 67269012 6 K14.0 Discussed conservati ve management with saltwater gargles etc. Chronic constipation 236 712985 K59.09 [id number] Angel Luis Mora MD [facility] [address] [place] [address] 08/30/2024 11:18:47 08/30/2024 15:31:54 Active immunization 68113285 Z23 Dean's esophagus [address] Amaya tomorrow. Intermitte nt free reflux. Possible candidate for erythromyc in protocol Gastroesop hageal reflux disease 116874275 K21.9 Arthropathy 392561765 M1 2.9 hands, low back-see above Benign ess ential hypertension 5671812 I10 Addition of diuretic seems prudent Chronic cough 05377566 R 05.3 Previously and extensivel y evaluated. Likely to be neurogenic . Acid reflux may contribute . Patient suspects some role of allergies Repeated prescription 18 4865898 Z76.0 [id number] Angel Luis Mora MD [facility] [address] [place] [address] 10/15/2024 16:04:23 10/16/2024 15:06:46 Seasonal affective disorder 921571671 F33.1 Benign navya plasm of meninges 016983549 D32.9 Iron deficiency 59174459 E61.1 Benign ess ential hypertension 3819094 I10 Addition of diuretic seems prudent Health Concerns Section Related Observation LastModified by Organization Detai ls LastModified Time None Recorded Concern Status LastModified by Organization Details LastModified Time None Recorded Advance Directives Directive None Recorded Payers Encounter Date Sequence Insurance Name Policy Number Policy Wells Covered Member ID Wells Member ID Guarantor Name 02/14/2024 1 [place] Bianca A Breeding [id number] Bianca A Breeding 02/14/2024 2 [facility] (MEDICARE SUPPLEMENT) Bianca A Breeding [id number] Bianca A Breeding 03/02/2024 1 [place] Bianca A Breeding [id number] Bianca A Breeding 03/02/2024 2 [facility] (MEDICARE SUPPLEMENT) Bianca A Breeding [id number] Bianca A Breeding 07/03/2024 1 [place] Bianca A Breeding [id number] Bianca A Breeding 07/03/2024 2 [employer] (MEDICARE SUPPLEMENT) Bianca A Breeding [id number] Bianca A Breeding 08/30/2024 1 [place] Bianca A Breeding [id number] Bianca A Breeding 08/30/2024 2 [employer] (MEDICARE SUPPLEMENT) Bianca A Breeding [id number] Bianca A Breeding 10/15/2024 1 [place] Bianca A Breeding [id number] Bianca Berrios 10/15/2024 2 [employer] (MEDICARE SUPPLEMENT) Bianca Berrios [id number] Bianca Berrios Notes Date Note Type Note Provider Name and Address Organization Details Recorded Time 4 text/html Patient presents today for the prewellness labs and procedures. Germania [place] AR palma 02/14/2024 17:35:36 4 text/html Patient presents for annual wellness visit. Spinal stimulator placed in June and she is improved but not convinced it is still helping. She has had some typical ragweed allergy symptoms over the last couple of weeks and recent urinary tract infection treated by local hospital. AR Lawler 03/02/2024 14:04:19 5 text/html This patient presents for several issues. Strained her right knee in a fall in the snow about nine days ago. Was not evident at first but pain and some swelling said in later in the day and has bothered her sense. She also suffered some strain of the right forearm muscles as well. Has had a sore place on the roof of her mouth and would like me to inspect this. Has some mild dysuria. Also more prone to constipation in recent months. Has in fact taken Linzess in the past-over five years ago. Using MiraLAX and stool softener's. Reminds me that her mother had colon cancer diagnosed even before the standard screening interval was complete. Onset about her age now. Her last colonoscopy was about 18 months ago AR Mcnair 07/03/2024 13:38:03 5 text/html This patient presents for follow-up. Blood pressure has been running a bit high and she brings an example very similar to what we achieve today. Her cough is still variable. She was placed on famotidine 40 mg that has not clearly been helpful. She suspects allergies. We discussed perhaps a trial of ipratropium since she states that allergies cause drainage which invariably cause cough. The injection in her right knee was not particularly helpful. She saw Dr. Hood who performed an x-ray showing severe osteoarthritis in all compartments. Avoiding surgery AR Salcedo 08/30/2024 12:42:28 5 text/html Patient is tolerating hydrochlorothiazide but [...] to get her ferritin up over 100 AR Salcedo / Kermit 10/15/2024 16:55:44 OBGyn Episode No OBEpisode recorded.
[2024-11-02] MEDS: SODIUM CHLORIDE 0.9% 10ML FLUSH SYRINGE 10 ML IV (14:10)
[2024-11-02] MEDS: ferumoxytoL 510 MG in 0.9 % SODIUM CHLORIDE 50 ML 268 MG IV (14:10)
[2024-11-02] MEDS: SODIUM CHLORIDE 0.9% 50ML BAG 50 ML IV (14:10)
[2024-11-02 14:15] VITALS: BP 125/73; PULSE 72; RESP 18; TEMP 36.7; O2SAT 99
[2024-11-02 14:37] VITALS: BP 121/76; PULSE 67
== END 2024-11-02 14:38 | disposition home or self-care (01) ==
LOC: INF 14:00
PROVIDERS: PCP Internal Medicine; Visit Provider Internal Medicine Medical Oncology
DX: D50.9 Iron deficiency anemia, unspecified (principal)
CPT/HCPCS: 96374; Q0138

== ENCOUNTER 2024-11-09 11:03 | Outpatient (CLI) | payer MEDICARE, SELFPAY ==
--- OUTSIDE RECORDS SUMMARY | 2024-11-09 11:05 | XMS_ITS | Data Portability ---
Author Organization [facility] RICH ArambulaS [place] Address [address] [place] [address] Care Team Providers Care Director Translational Name Role Phone ANGEL LUIS MORA Referring Provider Assessment No assessment recorded. Plan of Treatment Reminders Order Date Submit Date Provider Last Modified By Organization Details Last Modified Time Details Appointments None recorded. Lab None recorded. Referral None recorded. Procedures None recorded. Surgeries None recorded. Imaging None recorded. Medication Orders cefdinir 300 mg capsule 2022 023 [id number], [address] [place], [place], [id number], 3 13:00:17 Flonase Allergy Relief 50 mcg/actuat ion nasal spray,susp ension 2022 023 [facility] #[id number], [address] [place], [place], [id number], 3 13:00:16 Patient TargetsNo targets recorded. Patient InstructionsNo instructions recorded. Reason for Referral None Reported. Procedures Surgical History Date Name Laterality Status Provider Name and Address Organization Details Recorded Time 09/16/19 23 Nasolaryngoscopy completed DEXTER PABLO MD [address] [place], [address], [facility] 09/15/2022 12:59:43 hysterectomy completed [facility] 09/15/2022 12:04:31 discectomy of spine completed Manfred [facility] 09/15/2022 12:04:49 partial repair of rotator cuff completed [facility] 09/15/2022 12:05:01 Imaging Results None recorded. Procedure Notes None recorded. Medical Equipment None Reported. Allergies Allergen ID Allergen Name Allergen Category Reaction Reaction Severity Criticality Documentation Date Start Date Code Code System Note Provider Name and Address Organization Details Recorded Time 983618 Lunesta medicatio n facial swelling Not available high 09/15/2022 63656 4 RxNorm Dann Olivia [facility] 12:03:42 Medications Name Sig Start Date Stop [...] Updated DateTime 3 165.1 cm 24.6 kg/m2 75635.6 7 g 58 /min 137 mm[Hg] 90 mm[Hg] [facility] 3 12:09:13 Social History None recorded. Functional Status None recorded. Mental Status None recorded. Family History Nothing Reported. Medical History No medical history recorded. Gynecological HistoryNo gynecological history recorded. Obstetrics History GPAL:G 0 P 0 0 0 0 Past Encounters Encounter ID Performer Location Encounter Start Date Encounter Closed Date Diagnosis/Indication Diagnosis SNOMED-CT Code Diagnosis ICD10 Code Diagnosis Note [id number] DEXTER PABLO MD [facility] [address] [place] [address] 09/15/2022 10:56:32 09/15/2022 13:01:20 Chronic sinusitis 49334447 J32.[address] report. Shows chronic sphenoid sinusitis which is likely the source of the thick mucus and exacerbati ng cough. No evident infection on endoscopy. Omnicef for 3wks. Flonase and sinus rinse. F/u 1mo Chronic cough 55199215 R 05.3 Health Concerns Section Related Observation LastModified by Organization Detai ls LastModified Time None Recorded Concern Status LastModified by Organization Details LastModified Time None Recorded Advance Directives Directive None Recorded Payers Insurance Date Sequence Insurance Name Policy Number Policy Wells Covered Member ID Wells Member ID Guarantor Name 09/15/2022 2 [employer] (MEDICARE SUPPLEMENT) Bianca Breeding [id number] Bianca Breeding 09/15/2022 1 [place] Bianca Ferrari Breeding [id number] Bianca Breeding Notes Date Note Type Note Provider Name and Address Organization Details Recorded Time 09/15/2022 text/html Ref: Angel Luis Rolanda arndt MDChief Complaint: Post-nasal drainageTimin-4 monthsDuration: constantLocation:Sev erity: moderateQuality: thick/excessiveConte xt:Hx of chronic cough, HX of GERD, [facility] sinus at [facility], no hx nasal/sinus surgery, dx sleep apneaModifying Factors: nasal saline spray, OTC mucous relief - no improvement, [facility] signs and symptoms: heavy mucus/PND that she cannot get up and makes her cough even more, anxiety and dyspnea, throat clearing, chronic cough for 20yrs, mild hoarseness, no diplopia, throat & ear sensitivity DEXTER PABLO MD [address] [place] [address], [phone], [facility] 09/15/2022 13:00:12 OBGyn Episode No OBEpisode recorded.
--- OUTSIDE RECORDS SUMMARY | 2024-11-09 11:07 | XMS_ITS | Data Portability ---
Author Organization AR Mora / Peter Carmen Address [address] [facility] [address] [place] [address] Care Team Providers Care Hedge Trimmer Name Role Phone ANGEL LUIS MORA Primary Care Provider LIZZIE Beth General Handling Supervisor [phone] JOHN SIMMONS Woodworking Craftsman [employer] Paralegal SOFIA HITCHCOCK Sleep Medicine HARDEEP BARNARD Neurosurgeon SANYA PRIETO Implementation Lead ENEDINA HOOVER Smoke And Flame Specialist ZIGGY SALAZAR Pain Management Assessment No assessment recorded. Plan of Treatment Reminders Order Date Submit Date Provider Last Modified By Organization Details Last Modified Time Details Appointments 30 MIN FOLLO W-UP 2024 03:00P M Angel Luis Mora MD, FACP Not available Not available Not available CIMT 2024 02:00P M CIMT Schedule, TECH Not available Not available Not available ZHEN -PRE- SWV ([facility]) 60M 2024 10:30A M PREWELLNESS CLINICIAN Not available Not available Not available RADHAP -60M MD YEH ESS 2024 11:00A M Angel Luis Mora MD, FACP Not available Not available Not available Lab urdelroy lysis , dipst ick 2024 025 [facility], [address], [place], [address], 07/03/2024 13:49:12 urina lysis compl ete, refle x cultu re 2024 CAM[facility], [address], [address], [place], [address], 07/04/2024 07:11:26 Referral None recor ded. Procedures body compo sitio n phyllis sis (PROC ) [address], [address] [facility] [address], [place], [address], 02/15/2024 08:58:22 gait test (PROC ) [address], [address] [facility] [address], [place], [address], 02/15/2024 08:58:22 Surgeries None recor ded. Imaging DEXA - Inclu de FRAX 2023 024 [facility], [address], [address], [place], [address], 06/04/2024 12:11:50 audio gram [address], [address] [facility] [address], [place], [address], 02/15/2024 08:58:22 elect rocar diogr am [address], [address] [facility] [address], [place], [address], 02/15/2024 08:58:22 Medication Orders hydro chlor othia zide 25 mg table t 2024 025 [facility], [address] [place] [address] [address] [facility] [address], [place], [id number], 10/17/2024 14:24:26 fexof enadi ne 180 mg table t 2024 025 [place] [address] [facility], [address] [place] [address] [address], [place], [id number], 08/31/2024 14:28:20 hydro chlor othia zide 12.5 mg table t [address] [place] [address] Pharmacy [facility], [address] [place] [address] [address], [place], [id number], 08/31/2024 14:28:20 dulox etine 60 mg capsu le,de layed relea se 2023 024 [place] [address] [facility][id number], [address] [place], [place], [id number], 03/02/2024 14:44:18 estra diol 0.05 mg/24 hr weekl y trans derma l patch 2023 024 [facility] #, [address], [id number], 03/02/2024 14:44:18 metop rolol succi nuno ER 50 mg table t,ext ended relea se 24 hr 2023 024 [place] [address] [facility] #, [address], [id number], 03/02/2024 14:44:18 marielos zapin e 15 mg table t 2023 024 [facility] #, [address], [id number], 03/02/2024 14:44:18 panto prazo le 40 mg table t,del ayed relea se 2023 024 Patient Communicator [facility] #, 9 [facility] [address] [place], [id number], 03/02/2024 14:44:18 rosuv astat in 20 mg table t 2023 024 [facility]48, [address] [facility] [address] [place], [id number], 03/02/2024 14:44:18 amlod ipine 5 mg table t 2023 024 [facility] #[id number], 629 [facility] [address] [place], [id number], 03/02/2024 14:44:18 Patient TargetsNo targets recorded. Patient Instructions Encounter Date Encounter Id Patient Instructions Last Modified By Organization Details Last Modified Time 02/14/2024 [id number] (MARCOS) ankle brachial index* Not available 02/15/2024 08:58:22 fall risk assessment* Not available 02/15/2024 08:58:22 adult depression screening* Not available 02/15/2024 08:58:22 functional assessment* Not available 02/15/2024 08:58:22 substance abuse screening* Not available 02/15/2024 08:58:22 visual acuity* Not available 0 02/15/2024 08:58:22 card cutter test* Not available 02/14 08:58:22 Cognitive Assessment [...] you soon! [email or web address] Not available 02/14/2024 14:44:54 03/02/[id number] You might consider discussing estrogen topically to the are for open to reduce risk of future infections Not available 03/02/2024 13:34:56 RSV verified-lz. Arrange CIMT Not available 03/02/2024 13:35:07 07/03/2024 [id number] We discussed several options including twice daily MiraLAX adding stool softener. Various fiber form such as Citrucel. Option of trying Linzess Not available 07/03/2024 13:17:57 08/30/2024 [id number] Brief follow-up in a few weeks plan primarily to monitor blood pressure Not available 08/30/2024 12:09:15 rsv verified-ldb [email or web address] Not available 08/29/2024 17:02:56 10/15/2024 [id number] Instead of Kerline, you might try Zyrtec or Xyzal. I do recommend large-volume saline irrigations (nasal) [email or web address] Not available 10/15/2024 16:50:11 rsv verified-ldb . Give lorazepam 0.5 mg #30 for occasional prn use [email or web address] Not available 10/15/2024 16:52:01 Reason for Referral [...] Very High > 2000 Not Available [facility] ([facility]) [address] [facility], [place], [address], 02/15/2024 17:10:06 02/14/20 24 02/15/2024 NMR LIPOP ROFIL E+LIP IDS LDL-C (nih calc) 71 mg/dL 0-99 Optim al < 100 Above optim al 100 - 129 Borde rline 130 - 159 High 160 - 189 Very high > 189 Not Available [facility] ([facility]) [address] [place], [address], 02/15/2024 17:10:06 02/14/20 24 02/15/2024 NMR LIPOP ROFIL E+LIP IDS HDL-C 102 mg/dL >39 Not Available [facility] ([facility]) [address] [facility], [place], [address], 02/15/2024 17:10:06 02/14/2002/15/2024 NMR LIPOP ROFIL E+LIP IDS triglyceride s 76 mg/dL 0-149 Not Available [facility] ([facility]) [address] [place], [address], 02/15/2024 17:10:06 02/14/20 24 02/15/2024 NMR LIPOP ROFIL E+LIP IDS cholesterol, total 187 mg/dL 100-19 9 Not Available [facility] ([facility]) [address] [facility], [place], [address], 02/15/2024 17:10:06 02/14/20 24 02/15/2024 NMR LIPOP ROFIL E+LIP IDS HDL-P (total) 46.6 umol/ L >=30.5 Not Available [facility] ([facility]) [address] [facility], [place], [address], 02/15/2024 17:10:06 02/14/2002/15/2024 NMR LIPOP ROFIL E+LIP IDS small LDL-P <90 nmol/ L <=527 Not Available [facility] ([facility]) [address] [place], [address], 02/15/2024 17:10:06 02/14/2002/15/2024 NMR LIPOP ROFIL E+LIP [...] taken into accou nt. Not Available [facility] ([facility]) [address] [facility], [place], [address], 02/15/2024 17:10:06 02/14/20 24 02/15/2024 NMR LIPOP [...] eleanor asses sment . Not Available [facility] ([facility]) [address] [facility], [place], [address], 02/15/2024 17:10:06 02/14/20 24 02/15/2024 CBC WITH DIFFE RENTI AL/PL ATELE T WBC 6.3 x10e3 /uL 3.4-10 .8 normal Not Available [facility] ([facility]) [address] [facility], [place], [address], 02/15/2024 17:10:07 02/14/20 24 02/15/2024 CBC WITH DIFFE RENTI AL/PL ATELE T RBC 4.76 x10e6 /uL 3.77-5 .28 normal Not Available [facility] ([facility]) [address] [facility], [place], [address], 02/15/2024 17:10:07 02/14/20 24 02/15/2024 CBC WITH DIFFE RENTI AL/PL ATELE T hemoglobin 14.2 g/dL 11.1-1 5.9 normal Not Available [facility] ([facility]) [address] [facility], [place], [address], 02/15/2024 17:10:07 02/14/20 24 02/15/2024 CBC WITH DIFFE RENTI AL/PL ATELE T hematocrit 44.4 % 34.0-4 6.6 normal Not Available [facility] ([facility]) [address] [facility], [place], [address], 02/15/2024 17:10:07 02/14/2002/15/2024 CBC WITH DIFFE RENTI AL/PL ATELE T MCV 93 fL 79-97 normal Not Available [facility] ([facility]) [address] [facility], [place], [address], 02/15/2024 17:10:07 02/14/2002/15/2024 CBC WITH DIFFE RENTI AL/PL ATELE T MCH 29.8 pg 26.6-3 3.0 normal Not Available [facility] ([facility]) [address] [facility], [place], [address], 02/15/2024 17:10:07 02/14/20 24 02/15/2024 CBC WITH DIFFE RENTI AL/PL ATELE T MCHC 32.0 g/dL 31.5-3 5.7 normal Not Available [facility] ([facility]) [address] [facility], [place], [address], 02/15/2024 17:10:07 02/14/20 24 02/15/2024 CBC WITH DIFFE RENTI AL/PL ATELE T RDW 12.4 % 11.7-1 5.4 Not Available [facility] ([facility]) [address] [facility], [place], [address], 02/15/2024 17:10:07 02/14/20 24 02/15/2024 CBC WITH DIFFE RENTI AL/PL ATELE T platelets 302 x10e3 /uL 150-45 0 normal Not Available [facility] ([facility]) [address] [facility], [place], [address], 02/15/2024 17:10:07 02/14/20 24 02/15/2024 CBC WITH DIFFE RENTI AL/PL ATELE T neutrophils 71 % not estab. normal Not Available [facility] ([facility]) [address] [facility], [place], [address], 02/15/2024 17:10:07 02/14/20 24 02/15/2024 CBC WITH DIFFE RENTI AL/PL ATELE T lymphs 18 % not estab. normal Not Available [facility] ([facility]) [address] [facility], [place], [address], 02/15/2024 17:10:07 02/14/20 24 02/15/2024 CBC WITH DIFFE RENTI AL/PL ATELE T monocytes 7 % not estab. normal Not Available [facility] ([facility]) [address] [facility], [place], [address], 02/15/2024 17:10:07 02/14/20 24 02/15/2024 CBC WITH DIFFE RENTI AL/PL ATELE T eos 2 % not estab. normal Not Available [facility] ([facility]) [address] [facility], [place], [address], 02/15/2024 17:10:07 02/14/20 24 02/15/2024 CBC WITH DIFFE RENTI AL/PL ATELE T basos 1 % not estab. 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 0 normal Not Available [facility] ([facility]) [address] [place], [address], 02/15/2024 17:10:07 02/14/20 24 02/15/2024 CBC WITH DIFFE RENTI AL/PL ATELE T lymphs (absolute) 1.1 x10e3 /uL 0.7-3. 1 normal Not Available [facility] ([facility]) [address] [place], [address], 02/15/2024 17:10:07 02/14/20 24 02/15/2024 CBC WITH DIFFE RENTI AL/PL ATELE T monocytes(ab solute) 0.5 x10e3 /uL 0.1-0. 9 normal Not Available [facility] ([facility]) [address] [place], [address], 02/15/2024 17:10:07 02/14/20 24 02/15/2024 CBC WITH DIFFE RENTI AL/PL ATELE T eos (absolute) 0.1 x10e3 /uL 0.0-0. 4 normal Not Available [facility] ([facility]) [address] [place], [address], 02/15/2024 17:10:07 02/14/20 24 02/15/2024 CBC WITH DIFFE RENTI AL/PL ATELE T baso (absolute) 0.0 x10e3 /uL 0.0-0. 2 normal Not Available [facility] ([facility]) [address] [facility], [place], [address], 02/15/2024 17:10:07 02/14/20 24 02/15/2024 CBC WITH DIFFE RENTI AL/PL ATELE T immature granulocytes 1 % not estab. Not Available [facility] ([facility]) [address] [facility], [place], [address], 02/15/2024 17:10:07 02/14/20 24 02/15/2024 CBC WITH DIFFE RENTI AL/PL ATELE T immature grans (abs) 0.0 x10e3 /uL 0.0-0. 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 METAB OLIC PANEL (14) glucose 82 mg/dL 70-99 normal Not Available [facility] ([facility]) [address] [facility], [place], [address], 02/15/2024 17:10:08 02/14/20 24 02/15/2024 COMP. METAB OLIC PANEL (14) BUN 14 mg/dL 8-27 normal Not Available [facility] ([facility]) [address] [facility], [place], [address], 02/15/2024 17:10:08 02/14/20 24 02/15/2024 COMP. METAB OLIC PANEL (14) creatinine 0.70 mg/dL 0.57-1 .00 normal Not Available [facility] ([facility]) [address] [facility], [place], [address], 02/15/2024 17:10:08 02/14/20 24 02/15/2024 COMP. METAB OLIC PANEL (14) eGFR 94 mL/mi n/1.7 3 >59 normal Not Available [facility] ([facility]) [address] [facility], [place], [address], 02/15/2024 17:10:08 02/14/20 24 02/15/2024 COMP. METAB OLIC PANEL (14) BUN/creatini ne ratio 20 12-28 normal Not Available [facility] ([facility]) [address] [facility], [place], [address], 02/15/2024 17:10:08 02/14/20 24 02/15/2024 COMP. METAB OLIC PANEL (14) sodium 138 mmol/ L 134-14 4 normal Not Available [facility] ([facility]) [address] [facility], [place], [address], 02/15/2024 17:10:08 02/14/20 24 02/15/2024 COMP. METAB OLIC PANEL (14) potassium 4.3 mmol/ L 3.5-5. 2 normal Not Available [facility] ([facility]) [address] [facility], [place], [address], 02/15/2024 17:10:08 02/14/20 24 02/15/2024 COMP. METAB OLIC PANEL (14) chloride 98 mmol/ L 96-106 normal Not Available [facility] ([facility]) [address] [place], [address], 02/15/2024 17:10:08 02/14/20 24 02/15/2024 COMP. METAB OLIC PANEL (14) carbon dioxide, total 27 mmol/ L 20-29 normal Not Available [facility] ([facility]) [address] [facility] [place], [address], 02/15/2024 17:10:08 02/14/20 24 02/15/2024 COMP. METAB OLIC PANEL (14) calcium 9.5 mg/dL 8.7-10 .3 normal Not Available [facility] ([facility]) [address] [place], [address], 02/15/2024 17:10:08 02/14/20 24 02/15/2024 COMP. METAB OLIC PANEL (14) protein, total 6.6 g/dL 6.0-8. 5 normal Not Available [facility] ([facility]) [address] [facility] [place], [address], 02/15/2024 17:10:08 02/14/20 24 02/15/2024 COMP. METAB OLIC PANEL (14) albumin 4.3 g/dL 3.9-4. 9 normal Not Available [facility] ([facility]) [address] [facility] [place], [address], 02/15/2024 17:10:08 02/14/20 24 02/15/2024 COMP. METAB OLIC PANEL (14) globulin, total 2.3 g/dL 1.5-4. 5 Not Available [facility] ([facility]) [address] [facility] [place], [address], 02/15/2024 17:10:08 02/14/20 24 02/15/2024 COMP. METAB OLIC PANEL (14) bilirubin, total 0.3 mg/dL 0.0-1. 2 normal Not Available [facility] ([facility]) [address] [place], [address], 02/15/2024 17:10:08 02/14/20 24 02/15/2024 COMP. METAB OLIC PANEL (14) alkaline phosphatase 65 IU/L 44-121 normal Not Available [facility] ([facility]) [address] [place], [address], 02/15/2024 17:10:08 02/14/20 24 02/15/2024 COMP. METAB OLIC PANEL (14) AST (SGOT) 25 IU/L 0-40 normal Not Available [facility] ([facility]) [address] [place], [address], 02/15/2024 17:10:08 02/14/20 24 02/15/2024 COMP. METAB OLIC PANEL (14) ALT (SGPT) 20 IU/L 0-32 normal Not Available [facility] ([facility]) [address] [place], [address], 02/15/2024 17:10:08 02/14/2002/15/2024 HEMOG LOBIN A1C hemoglobin A1C 5.6 % 4.8-5. 6 normal Predi abete s: 5.7 - 6.4 Diabe tori: >6.4 Glyce rivera contr ol for adult s with diabe tori: <7.0 Not Available [facility] ([facility]) [address] [place], [address], 02/15/2024 17:10:08 02/14/2002/15/2024 TSH TSH 1.040 uIU/m L 0.450- 4.500 normal Not Available [facility] ([facility]) [address] [place], [address], 02/15/2024 17:10:09 02/14/2002/15/2024 ORESTES TIN ferritin 72 NG/mL 15-150 normal Not Available [facility] ([facility]) [address] [facility], [place], [address], 02/15/2024 17:10:09 02/14/20 24 02/14/2024 F2-IS OPROS TANE/ CREAT ININE F2-isoprosta sajan/creatini ne 0.65 NG/mg _cr <0.86 [place] ivette urina ry F2-Is opros tanes are assoc iated with an incre ased relat renea risk of coron keerthi heart disea se (CHD) (1). (Refe rence : 1-Matt ruddy love et al. Circu latio n. 2004; 109: 843-8 48). This test is perfo rmed by a Liqui d Chrom atogr aphy- Tande m Mass Spect romet ry (LC/M S/MS) metho d. This test was devel oped and its perfo rmanc e taryn cteri stics deter mined by the [facility] It has not been clear ed or appro matthieu by the U.S. FDA. The [facility] is regul ated under Clini eleanor Labor atory Impro vemen t Amend ments (CLIA ) as quali fied to perfo rm high- compl exity testi ng. This test is used for clini eleanor purpo ses. It shoul d not be regar ded as inves tigat ional or for resea rc. Not Available [facility] - Manual Order Only [address], [place], [address], 03/06/2024 22:09:02 02/14/20 24 02/14/2024 F2-IS OPROS TANE/ CREAT ININE F2-isoprosta ne 0.48 NG/mL Not Available [facility] - Manual Order Only [address], [place], [address], 03/06/2024 22:09:02 02/14/20 24 02/14/2024 F2-IS OPROS TANE/ CREAT ININE creatinine, urine 74 mg/dL 20-275 Not Available [facility] - Manual Order Only [address], [place], [address], 03/06/2024 22:09:02 02/14/20 24 02/14/2024 MICRO ALBUM IN/CR EATIN INE microalbumin /creatinine Undete ctable mg/g_ cr <7.5 Micro album in in patie nt's urine sampl e is below assay detec tion; there fore, Micro album in/Cr eatin ine canno t be calcu lated . In the [facility] Heart Study , it was shown that [...] [facility] - Manual Order Only [address], [place], [address], 03/06/2024 22:09:03 02/14/20 24 02/14/2024 MICRO ALBUM IN/CR EATIN INE microalbumin <3.0 mg/L Not Available [facility] - Manual Order Only [address], [place], [address], 03/06/2024 22:09:03 02/14/20 24 02/14/2024 FIBRI NOGEN [...] m packa ge inser t. Not Available [facility] - Manual Order Only [address], [place], [address], 03/06/2024 22:09:03 02/14/20 24 02/14/2024 APOLI POPRO [...] 2017; 23(Cr ppl 2):1- 87. Not Available [facility] Manual Order Only [address], [place], [address], 03/06/2024 22:09:04 02/14/20 24 02/14/2024 HSCRP hs-CRP [...] Cardi ovasc ular Risk; 1.0-3 .0 mg/L [place] ge Relat renea Cardi ovasc ular Risk; [...] h [place], Nelli perez RW, et al. [facility] rs of infla mmati on and cardi ovasc ular disea se: appli catio n to clini eleanor and publi c healt h pract ice: A state ment for embert vinayre diana brito from the [facility] rs for Disea se Contr ol and Preve ntion and the Ameri can Heart Assoc iatio n. Circu latio n 2002; 107(3 ): 499-5 11. Not Available [facility] - Manual Order Only [address], [place], [address], 03/06/2024 22:09:04 02/14/20 24 02/14/2024 LIPID PANEL cholesterol, total 175 mg/dL <200 Not Available [facility] - Manual Order Only [address], [place], [address], 03/06/2024 22:09:05 02/14/20 24 02/14/2024 LIPID PANEL HDL cholesterol 100 mg/dL >49 Not Available [facility] - Manual Order Only [address], [place], [address], 03/06/2024 22:09:05 02/14/20 24 02/14/2024 LIPID PANEL triglyceride s 81 mg/dL <150 Not Available [facility] - Manual Order Only [address], [place], [address], 03/06/2024 22:09:05 02/14/20 24 02/14/2024 LIPID PANEL [...] 310(1 9): 2061- 2068 (http ://ed ucati on.[employer]. [employer]/f aq/FA Q164) Not Available [facility] - Manual Order Only [address], [place], [address], 03/06/2024 22:09:05 02/14/20 24 02/14/2024 LIPID PANEL chol/HDL-C 1.8 calc <5.0 Not Available [facility] - Manual Order Only [address], [place], [address], 03/06/2024 22:09:05 02/14/20 24 02/14/2024 LIPID PANEL non-HDL cholesterol 75 mg/dL _(eleanor c) <130 For patie nts with diabe tori plus 1 major ASCVD risk facto r, treat ing to a non-H DL-C goal of <100 mg/dL (LDL- C of <70 mg/dL ) is consi stefanied a roslyn ruckero n. Not Available [facility] - Manual Order Only [address], [place], [address], 03/06/2024 22:09:05 02/14/20 24 02/14/2024 LP-PL A2 ACTIV ITY LP-pla2 activity 84 nmol/ min/m L <124 Relat renea Risk: Optim al <=123 nmol/ min/m L; High >123 nmol/ min/m L.Thi s test was devel oped and its phyllis tical perfo rmanc e taryn cteri stics have been deter mined by [employer] [facility] Cardi ometa marcio Vernon r of Alexus crenshaw at [facility]. It has not been clear ed or appro matthieu by the U.S. Food and Drug Admin istra tion. This assay has been valid ated pursu ant to the CLIA regul ation s and is used for clini eleanor purpo ses. Not Available [facility] - [facility] Order Only [address], [place], [address], 03/06/2024 22:09:05 02/14/20 24 02/14/2024 INSUL IN insulin 3.1 uIU/m L <18.5 Refer ence Range <=18. 4. Risk: Optim al <=18. 4, Moder ate NA, High >18.4 . Adult cardi ovasc ular event risk categ ory cut point s (opti mal, moder ate, high) are based on Insul in Refer ence inter natasha studi es perfo rmed at [employer] [facility] in 2021. Not Available [facility] - Manual Order Only [address], [place], [address], 03/06/2024 22:09:06 02/14/20 24 02/14/2024 MYELO PEROX [...] Diagn hamida sanchez of Alexus crenshaw at [facility]. It has not been clear ed or appro matthieu by the U.S. Food and Drug Admin istra tion. This assay has been valid ated pursu ant to the CLIA regul ation s and is used for clini eleanor purpo ses. Not Available [facility] - Manual Order Only [address] [facility] [address], [place], [address], 03/06/2024 22:09:06 02/14/20 24 02/14/2024 VITAM IN [...] vilma n, plemauri e refer to http: //[facility] alan morales stdia gnost ics.c om/fa q/FAQ 199(T his link is being provi ded for abeba whittington/[facility] alan nal purpo ses only. )This test was devel benson and its phyllis tical perfo rmanc e taryn cteri stics have been deter mined by [employer] hamida s Cardi paul Vernon r of [place] den at [facility]. It has not been clear ed or appro matthieu by the U.S. Food and Drug Admin istra tion. This assay has been valid ated pursu ant to the CLIA regul ation s and is used for clini eleanor purpo ses. Not Available [facility] - Manual Order Only [address], [place], [address], 03/06/2024 22:09:07 02/14/20 24 02/14/2024 OMEGA CHECK epa 0.8 %_by_ wt 0.2-2. 3 Not Available [facility] - Manual Order Only [address], [place], [address], 03/06/2024 22:09:07 02/14/20 24 02/14/2024 OMEGA CHECK dha 2.3 %_by_ wt 1.4-5. 1 Not Available [facility] Manual Order Only [id number], [place], [address], 03/06/2024 22:09:07 02/14/20 24 02/14/2024 OMEGA CHECK dpa 1.2 %_by_ wt 0.8-1. 8 Not Available [facility] - Manual Order Only [address], [place], [address], 03/06/2024 22:09:07 02/14/20 24 02/14/2024 OMEGA CHECK arachidonic acid 14.7 %_by_ wt 8.6-15 .6 Not Available [facility] - Manual Order Only [address], [place], [address], 03/06/2024 22:09:07 02/14/20 24 02/14/2024 OMEGA CHECK linoleic acid 22.9 %_by_ wt 18.6-2 9.5 Not Available [facility] - Manual Order Only [address], [place], [address], 03/06/2024 22:09:07 02/14/20 24 02/14/2024 OMEGA CHECK [...] categ ories were estab lishe d for [place] Check : A cut-o ff of >=5.5 [...] s [facility] [place]. It has not been clear ed or appro matthieu by the U.S. Food and Drug Admin istra tion. This assay has been valid ated pursu ant to the CLIA regul ation s and is used for clini eleanor purpo ses. Not Available [facility] - Manual Order Only [address], [place], [address], 03/06/2024 22:09:07 02/14/20 24 02/14/2024 OMEGA CHECK omega-6 total 40.7 %_by_ wt [facility] measu res a numbe r of omega -6 fatty acids with AA and LA being the two most abund ant forms repor ivette. Not Available [facility] - Manual Order Only [address], [place], [address], 03/06/2024 22:09:07 02/14/20 24 02/14/2024 OMEGA CHECK omega-3 total 4.3 %_by_ wt Not Available [facility] - Manual Order Only [address], [place], [address], 03/06/2024 22:09:07 02/14/20 24 02/14/2024 OMEGA CHECK omega 6/omega 3 ratio 9.4 3.7-14 .4 Not Available [facility] - Manual Order Only [address], [place], [address], 03/06/2024 22:09:07 02/14/20 24 02/14/2024 OMEGA CHECK arachidonic acid/epa ratio 18.7 3.7-40 .7 Not Available [facility] - Manual Order Only [address], [place], [address], 03/06/2024 22:09:07 02/14/20 24 02/14/2024 (MARCOS) ankle brach ial index * Arm- Left 149 Not Available [facility] [address], [place], [address], 02/14/2024 14:45:01 02/14/20 24 02/14/2024 (MARCOS) ankle brach ial index * Leg- Right 200 Not Available [address], [place], [address], 02/14/2024 14:45:01 02/14/20 24 02/14/2024 (MARCOS) ankle brach ial index * Leg- Left 196 Not Available [address], [place], [address], 02/14/2024 14:45:01 02/14/20 24 02/14/2024 (MARCOS) ankle brach ial index * MARCOS Pressure- Right 1.34 Not Available [address], [place], [address], 02/14/2024 14:45:01 02/14/20 24 02/14/2024 (MARCOS) ankle brach ial index * MARCOS Pressure- Left 1.32 Not Available [address], [place], [address], 02/14/2024 14:45:01 07/03/19 25 07/04/2024 UA/M W/RFL X CULTU REMAVERICKI NE specific gravity 1.014 1.005- 1.030 normal Not Available [facility] ([facility]) [address] [place], [address], 07/04/2024 07:11:26 07/03/19 25 07/04/2024 UA/M W/RFL X MANUEL OSMAN NE pH 7.0 5.0-7. 5 normal Not Available [facility] ([facility]) [address] [place], [address], 07/04/2024 07:11:26 07/03/19 25 07/04/2024 UA/M W/RFL X CULTU RE, ROUTI NE urine-color Yellow yellow Not Available [facility] ([facility]) [address] [place], [address], 07/04/2024 07:11:26 07/03/19 25 07/04/2024 UA/M W/RFL X CULTU RE, ROUTI NE appearance Clear clear Not Available [facility] ([facility]) [address] [facility], [place], [address], 07/04/2024 07:11:26 07/03/19 25 07/04/2024 UA/M W/RFL X CULTU RE, ROUTI NE WBC esterase Negati ve negati ve Not Available [facility] ([facility]) [address] [place], [address], 07/04/2024 07:11:26 07/03/19 25 07/04/2024 UA/M W/RFL X CULTU REMAVERICKI NE protein Negati ve negati ve/tra ce Not Available [facility] ([facility]) [address] [place], [address], 07/04/2024 07:11:26 07/03/19 25 07/04/2024 UA/M W/RFL X CULTU REMAVERICKI NE glucose Negati ve negati ve Not Available [facility] ([facility]) [address] [place], [address], 07/04/2024 07:11:26 07/03/19 25 07/04/2024 UA/M W/RFL X CULTU RE, ROUTI NE ketones Negati ve negati ve Not Available [facility] ([facility]) [address] [place], [address], 07/04/2024 07:11:26 07/03/19 25 07/04/2024 UA/M W/RFL X CULTU RE, ROUTI NE occult blood Negati ve negati ve Not Available [facility] ([facility]) [address] [place], [address], 07/04/2024 07:11:26 07/03/19 25 07/04/2024 UA/M W/RFL X CULTU RE, ROUTI NE bilirubin Negati ve negati ve Not Available [facility] ([facility]) [address] [facility], [place], [address], 07/04/2024 07:11:26 07/03/19 25 07/04/2024 UA/M W/RFL X CULTU RE, ROUTI NE urobilinogen ,semi-qn 0.2 mg/dL 0.2-1. 0 normal Not Available [facility] ([facility]) [address] [facility], [place], [address], 07/04/2024 07:11:26 07/03/19 25 07/04/2024 UA/M W/RFL X CULTU RE, ROUTI NE nitrite, urine Negati ve negati ve Not Available [facility] ([facility]) [address] [facility], [place], [address], 07/04/2024 07:11:26 07/03/19 25 07/04/2024 UA/M W/RFL X CULTU RE, ROUTI NE microscopic examination Commen t Micro scopi c follo ws if indic ated. Not Available [facility] ([facility]) [address] [facility], [place], [address], 07/04/2024 07:11:26 07/03/19 25 07/04/2024 UA/M W/RFL X CULTU RE, ROUTI NE microscopic examination See below: Micro scopi c was indic ated and was perfo rmed. Not Available [facility] ([facility]) [address] [facility], [place], [address], 07/04/2024 07:11:26 07/03/19 25 07/04/2024 UA/M W/RFL X CULTU RE, ROUTI NE WBC None seen /hpf 0 - 5 Not Available [facility] ([facility]) [address], [place], [address], 07/04/2024 07:11:26 07/03/19 25 07/04/2024 UA/M W/RFL X CULTU RE, ROUTI NE RBC None seen /hpf 0 - 2 Not Available [facility] ([facility]) [address], [place], [address], 07/04/2024 07:11:26 07/03/19 25 07/04/2024 UA/M W/RFL X CULTU RE, ROUTI NE epithelial cells (non renal) 0-10 /hpf 0 - 10 Not Available [facility] ([facility]) [address] [facility], [place], [address], 07/04/2024 07:11:26 07/03/19 25 07/04/2024 UA/M W/RFL X CULTU RE, ROUTI NE epithelial cells (renal) [employer] Not Available [facility] ([facility]) [address], [place], [address], 07/04/2024 07:11:26 07/03/19 25 07/04/2024 UA/M W/RFL X CULTU RE, ROUTI NE casts None seen /lpf none seen Not Available [facility] ([facility]) [address] [facility], [place], [address], 07/04/2024 07:11:26 07/03/19 25 07/04/2024 UA/M W/RFL X CULTU RE, ROUTI NE cast type [employer] Not Available [facility] ([facility]) [address] [facility], [place], [address], 07/04/2024 07:11:26 07/03/19 25 07/04/2024 UA/M W/RFL X CULTU RE, ROUTI NE crystals [employer] Not Available [facility] ([facility]) [address] [facility], [place], [address], 07/04/2024 07:11:26 07/03/19 25 07/04/2024 UA/M W/RFL X CULTU RE ROUTI NE crystal type [employer] Not Available [facility]) [address] [facility], [place], [address], 07/04/2024 07:11:26 07/03/19 25 07/04/2024 UA/M W/RFL X CULTU RE, ROUTI NE mucus threads [employer] Not Available [facility] ([facility]) [address] [facility], [place], [address], 07/04/2024 07:11:26 07/03/19 25 07/04/2024 UA/M W/RFL X CULTU RE, ROUTI NE bacteria None seen none seen/f ew Not Available [facility] ([facility]) [address] [facility], [place], [address], 07/04/2024 07:11:26 07/03/19 25 07/04/2024 UA/M W/RFL X CULTU RE ROUTI NE yeast [employer] Not Available [facility] ([facility]) [address] [facility], [place], [address], 07/04/2024 07:11:26 07/03/19 25 07/04/2024 UA/M W/RFL X CULTU REMANUEL NE trichomonas [employer] Not Available [facility] ([facility]) [address] [facility], [place], [address], 07/04/2024 07:11:26 07/03/19 25 07/04/2024 UA/M W/RFL X CULTU RE ROUTI NE comment [employer] Not Available [facility] ([facility]) [address] [place], [address], 07/04/2024 07:11:26 07/03/19 25 07/04/2024 UA/M W/RFL X CULTU RE, ROUTI NE urinalysis reflex Commen t This speci men will not refle x to a Urine Cultu re. Not Available [facility] ([facility]) [address] [facility], [place], [address], 07/04/2024 07:11:26 07/03/19 25 07/03/2024 urina lysis , dipst ick Leukocytes Negati ve Not Available [address], [place], [address], 07/03/2024 13:22:43 07/03/19 25 07/03/2024 urina lysis , dipst ick Nitrite negati ve Not Available [address], [place], [address], 07/03/2024 13:22:43 07/03/19 25 07/03/2024 urina lysis , dipst ick Urobilinogen Normal Not Available [address], [place], [address], 07/03/2024 13:22:43 07/03/19 25 07/03/2024 urina lysis , dipst ick Protein Trace Not Available [address], [place], [address], 07/03/2024 13:22:43 07/03/19 25 07/03/2024 urina lysis , dipst ick pH 7 Not Available [address], [place], [address], 07/03/2024 13:22:43 07/03/19 25 07/03/2024 urina lysis , dipst ick Blood Negati ve Not Available [address], [place], [address], 07/03/2024 13:22:43 07/03/19 25 07/03/2024 urina lysis , dipst ick Specific [place] 1.015 Not Available [facility] [address] [facility] [address], [place], [address], 07/03/2024 13:22:43 07/03/19 25 07/03/2024 urina lysis , dipst ick Ketone Negati ve Not Available [facility] [address] [facility] [address], [place], [address], 07/03/2024 13:22:43 07/03/19 25 07/03/2024 urina lysis , dipst ick Bilirubin Negati ve Not Available [facility] [address] [facility] [address], [place], [address], 07/03/2024 13:22:43 07/03/19 25 07/03/2024 urina lysis , dipst ick Glucose Normal Not Available [facility] [address] [facility] [address], [place], [address], 07/03/2024 13:22:43 07/03/19 25 07/03/2024 urina lysis , dipst ick Appearance dark Not Available [facility] [address] [facility] [address], [place], [address], 07/03/2024 13:22:43 07/03/19 25 07/03/2024 urina lysis , dipst ick Color orange Not Available [facility] [address] [place] [address] [address], [place], [address], 07/03/2024 13:22:43 01/24/20 24 01/24/2024 XR, foot, 3 or more view No observ ation record ed. [address], [place], [address], 01/25/2024 10:52:28 01/24/20 24 01/24/2024 XR, foot, 3 or more view No observ ation record ed. [address] [place], [address], 01/25/2024 10:52:03 01/24/20 24 01/24/2024 XR, lumba r spine , 2 view No observ ation record ed. [facility] [address], [place], [address], 01/25/2024 10:47:44 02/14/20 24 02/14/2024 audio gram No observ ation record ed. [email or web address] [facility] [address] [facility] [address], [place], [address], 02/14/2024 17:23:48 02/14/20 24 02/14/2024 elect malikar diogr am No observ ation record ed. [email or web address] [facility] [address] [facility] [address], [place], [address], 02/16/2024 08:39:10 03/20/20 24 03/19/2024 MAMMO , scree emy, tomos ynthe sis, bilat eral, w/ CAD No observ ation record ed. [address] [facility] [address], [place], [address], 03/21/2024 12:08:39 06/04/20 24 05/28/2024 DEXA No observ ation record ed. [facility] [address], [place], [address], 06/04/2024 16:57:26 08/22/19 25 08/21/2024 XR, knee, [...] e to patien t->Rou lynda Releas e [facility] [address] [facility] [address], [place], [address], 08/21/2024 13:53:40 Result Notes None recorded. Problems Name Problem SNOMED Code Status Onset Date Resolution Date Notes Provider Name and Address Organization Details Recorded Time Cough 10387738 Active 2015 Cough;Pro blem Note: usual broad different ial. Elements of rhinitis suspect. Chest CT August 2012-see record. 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 Severe Not Available [facility] 9 22:03:19 Benign essentia l hyperten matthew 0003587 Active 2013 Hypertens ion, Benign Essential ; Not Available [facility] 9 22:03:19 Arthropa thy 041742530 Active 2016 Osteoarth ritis; Not Available [facility] 9 22:03:19 Lipoprot ein above referenc e range 174755589 Active 2018 L0 (a) elevation Angel Luis Mora MD [address] [facility] [address], [place], [address], [place] / [place] 9 12:29:17 Cystocel e and rectocel e co-occur rent with incomple te uterovag inal prolapse 902124486 Active 2018 Angel Luis Mora MD [address], [place], [address], [place] [facility] [place] [facility] [place] 9 13:08:59 Coronary atherosc lerosis 342738621 Active 2018 2-40%-act renea plaque and inflammat ion on CIMT 03/01 Angel Luis Mora MD [address], [place], [address], [place] [facility] [place] 9 12:23:00 Body mass index 25-29 - overweig ht 564153178 Active 2018 Stacey Kelly null, [place] / [place] 9 12:20:39 Finding of body mass index 219674689 Active 2018 Glenny gaspar null, [place] / [place] 9 11:27:51 Gastroes ophageal reflux disease 729697534 Active 2018 EGD 08/29-file d Vidhya, probably Barretts Angel Luis Mora MD [address], [place], [address], [place] [facility] [place] 9 16:50:02 Dean' s esophagu s 995073867 Active 2018 Angel Luis Mora MD [address], [place], [address], [place] [facility] [place] 9 12:07:43 Environm ental allergy 037859168 Active 2020 Angel Luis Mora MD [address], [place], [address], [place] 1 15:01:32 Hypersom belinda 40238102 Active 2020 MD Tom Coyne [address], [place], [address], [place] [facility] [place] 1 15:02:43 Diarrhea 49773207 Active 2020 Angel Luis Mora MD [address], [place], [address], [place] [facility] [place] 1 11:42:25 Easy bruising 208698237 Active 2020 Angel Luis Mora MD [address], [place], [address], [place] [facility] [place] 1 11:43:30 Sleep apnea 15233299 Active 2020 Angel Luis Mora MD [address], [place], [address] [place] [address], [place] [facility] [place] 1 15:45:46 Iron deficien cy 30475301 Active 2021 ferritin 11 as of 08/24/21 Angel Luis Mora MD [address], [place], [address] [place] [address], [place] [facility] [place] 2 09:03:15 Osteoart hritis 328739370 Active 2022 Angel Luis Mora MD [address], [place], [address] [place] [address], [place] [facility] [place] 3 14:19:41 Hyponatr emia 20692737 Active 2022 Angel Luis Mora MD [address], [place], [address], [place] / [place] 3 14:19:42 Depressi ve disorder 47480852 Active 2022 Angel Luis Mora MD [address], [place], [address] [place] [address], [place] [facility] [place] 3 13:55:50 Chapped skin 422531891 Active 2023 Angel Luis Mora MD [address], [place], [address] [place] [address], [place] [facility] [place] 4 10:10:15 Chronic cough 26486274 Active 2024 Angel Luis Mora MD [address], [place], [address] [place] [address], [place] [facility] [place] 5 12:08:08 Seasonal affectiv e disorder 328422433 Active 2024 Angel Luis Mora MD [address] [facility] [address], [place], [address], [place] [facility] [place] 5 16:41:56 [...] Mora MD [address], [place], [address], [place] / [place] 0 13:10:28 11/13 Pain Assessment completed Kaitlin Leonila [place] / [place] 0 11:11:12 11/13 Home Safety Screen completed Kaitlin Leonila [place] / [place] 0 11:09:31 03/16 total excision of bilateral fallopian tubes completed Angel Luis Mora MD [address], [place], [address], [place] [facility] [place] 9 14:00:41 02/27 Dxa bone density yessy vrt fx completed Kaitlin Leonila [place] 0 15:44:00 10/18 VIP AWE completed Angel Luis Mora MD [address], [place], [address], [place] [facility] [place] 9 13:53:04 [...] Not available Not available Not available 09/11/2018 78714 4 RxNorm React ion: face/ neck swell ing; Not Available [facility] 9 05:48:00 Medications Name Sig Start Date Stop Date Status Note LastModified by Organization Details LastModified Time slow fe 45mg tablets TAKE 1 TABLET BY MOUTH EVERY OTHER DAY 01/20 completed Not Available Not Available Not Available Prescript ion - New 12/20 /2020 completed gabapent in Not Available Not Available [...] prednison e 20 mg tablet 11/30 completed Vicki y, has startedt aking this now 12/10 [...] Available amlodipin e 5 mg tablet TAKE ONE TABLET BY MOUTH [...] e 60 mg capsule,d elayed release TAKE ONE CAPSULE BY MOUTH EVERY DAY active Not Available Not Available No t Available pregabali n 75 mg capsule TAKE 1 CAPSULE BY MOUTH TWICE DAILY active Not Available Not Available No t Available acetamino phen prn active Usually 2 po once or twice a week. 02/14/24 Not Available Not Available Not Available aspirin 81 mg daily active Not taking HH 11/30/22 & 02/14/24 Not Available Not Available [...] by transder mal route. 09/16 completed Claribel Kurztub - sleep [employer] Not Available Not Available Not Available EpiCeram [...] Updated DateTime 5 162.56 cm 27.7 kg/m2 87640.8 1 g 98 % 98 % 58 /min 143 mm[Hg] 88 mm[Hg] Paulino Mora / [place] 5 11:29:57 Date Recorded Body height Body mass index (BMI) Body weight Heart rate Oxygen saturation Oxygen saturation in Arterial blood by Pulse oximetry Systolic blood pressure Diastolic blood pressure Provider Name and Address Organization Details Last Updated DateTime 5 162.56 cm 26.5 kg/m2 40765.3 g 59 /min 97 % 97 % 127 mm[Hg] 86 mm[Hg] Kala Mora / [place] 5 16:13:52 Date Recorded Body height Body mass index (BMI) Body weight Oxygen saturation Oxygen saturation in Arterial blood by Pulse oximetry Heart rate Systolic blood pressure Diastolic blood pressure Provider Name and Address Organization Details Last Updated DateTime 4 162.56 cm 27.8 kg/m2 23995.9 6 g 97 % 97 % 72 /min 132 mm[Hg] 91 mm[Hg] Kaitlin Keen [facility] / [place] 4 14:59:44 Date Recorded Body height Body mass index (BMI) Body weight Oxygen saturation Oxygen saturation in Arterial blood by Pulse oximetry Heart rate Systolic blood pressure Diastolic blood pressure Provider Name and Address Organization Details Last Updated DateTime 4 162.56 cm 27.4 kg/m2 55471.3 4 g 98 % 98 % 80 /min 120 mm[Hg] 90 mm[Hg] Sun Mendez [facility] / [place] 4 13:09:15 Social History Question Answer Notes LastModified by [employer] Details LastModified Time Tobacco Smoking Status Never Smoker Not Available [facility] 04/15/2020 03:38:50 What Is Your Level Of Caffeine Consumption? Moderate 1 Mug Coffee/d, 1 Iced Tea/d [id number] Information not available 04/15/2020 Education 2 Year College Information not available 03/31/2021 Marital Status Informatio n not available 03/31/2021 What Was The Date Of Your Most Recent Tobacco Screening? 02/14/2024 Information not available 02/14/2024 Sex: Unknown Functional Status Question Answer Note LastModified by Cli[employer] Details LastModified Time What is your level of alcohol consumption? 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 Information not available 03/31/2021 What is your [...] trivalent, PF 4 completed Sun Mendez null, [facility] / [place] 03/02/2024 14:04:12 Tdap 9 completed Not Available [facility] 06/30/2019 02:25:25 zoster, unspecified formulation 3 completed Not Available [facility] 01/19/2023 15:01:25 Influenza, recombinant, quadrivalent, PF 8 completed Not Available [facility] 01/19/2023 15:01:25 Hep A, adult 8 completed Not Available [facility] 01/19/2023 15:01:25 zoster live 9 completed Not Available [facility] 01/19/2023 15:01:25 Influenza, recombinant, quadrivalent, PF 9 completed Not Available [facility] 06/30/2019 02:25:26 COVID-19, mRNA, LNP-S, PF, 30 mcg/0.3 mL dose 1 completed Germania London null, [facility] / [place] 10/05/2022 13:14:56 COVID-19, mRNA, LNP-S, PF, 30 mcg/0.3 mL dose 1 completed Germania London null, [facility] / [place] 10/05/2022 13:15:12 pneumococcal polysaccharide PPV23 0 completed Guerita Burr null, [facility] / [place] 12/05/2019 15:26:41 COVID-19, mRNA, LNP-S, bivalent, PF, 50 mcg/0.5 mL or 25mcg/0.25 mL dose 2 completed Germania London null, [place] / [place] 10/05/2022 13:16:47 Influenza, recombinant, quadrivalent, PF 0 completed Germania [place] null, [place] / [place] 03/24/2020 14:12:14 Hep A, adult 9 completed Not Available [facility] 06/30/2019 02:25:25 COVID-19, mRNA, LNP-S, PF, 100 mcg/0.5mL dose or 50 mcg/0.25mL dose 1 completed Guerita Burr null, [place] [facility] [place] 03/28/2021 12:02:10 Influenza, recombinant, quadrivalent, PF 1 completed Germania [place] null, [place] [facility] [place] 05/25/2021 14:49:06 zoster recombinant 1 completed Germania [place] null, [place] 05/25/2021 14:49:06 Influenza, high-dose, quadrivalent, PF 2 completed Guerita Burr null, [place] [facility] [place] 04/06/2022 13:44:54 Past Encounters Encounter ID Performer Location Encounter Start Date Encounter Closed Date Diagnosis/Indication Diagnosis SNOMED-CT Code Diagnosis ICD10 Code Diagnosis Note [id number] Angel Luis Mora MD [facility] [address] 08/28/2018 15:26:45 08/28/2018 16:28:45 Pain of left shoulder joint 4441385926 8820176 M25.512 consider rotator cuff injury/tea r, labral tear. [id number] Angel Luis Mora MD [facility] [address] [address] 09/25/2018 15:17:01 09/25/2018 17:02:04 Adult health examination 703370060 Z00.00 [id number] Angel Luis Mora MD [facility] [address] [address] 10/18/2018 13:01:12 10/18/2018 15:00:48 Lipoprotein above reference range 440557179 E78.41 Benign navya plasm of meninges 035844020 D32.9 Benign ess ential hypertension 9778313 I10 Scoliosis deformity of spine 601607332 M41.9 Dean's esophagus [address] Amaya tomorrow. Intermitte nt free reflux. Possible candidate for erythromyc in protocol Arthropathy 788206715 M1 2.9 hands, low back Cough 65794887 R05 extensivel y worked up. Gastroesop hageal reflux contributo ry. Abnormal chest CT-long stable however. He notes pulmonolog ist Active or passive immunization 302990920 Z23 [id number] Angel Luis Mora MD [facility] [address] [place] [address] 01/01/2019 12:27:10 01/01/2019 13:11:37 Scoliosis deformity of spine 594026524 M41.9 Arthropathy 506672161 M1 2.9 hands, low back-see above Cystocele and rectocele co-occurrent with incomplete uterovaginal prolapse 515024281 N81.2 surgical consultati on pending Lipoprotei n above reference range 007528957 E78.41 [id number] Angel Luis Mora MD [facility] [address] [place] [address] 02/27/2019 12:13:33 02/27/2019 15:54:24 Body mass index 25-29 - overweight 358958404 Z68.27 Prolapse o f female genital organs 94274648 N81.9 very low surgical risk-below 0.5% by Chuck criteria (revised cardiac risk index). Active or passive immunization 906854563 Z23 [id number] Angel Luis Mora MD [facility] [address] [place] [address] 03/26/2019 15:44:16 03/26/2019 16:42:22 Coronary atherosclerosis 716310781 I25.10 Lipoprotei n above reference range 639367284 E78.41 Benign ess ential hypertension 6493719 I10 with increased fluid retention. His sodium and potassium issues, we'll try low-dose loop diuretic [id number] Angel Luis Mora MD [facility] [address] [place] [address] 04/20/2019 12:05:22 04/20/2019 12:46:58 Abdominal pain 31695633 R10.9 Nausea 814260601 R11.0 isolated symptom. [id number] Angel Luis Mora MD [facility] [address] [place] [address] 04/30/2019 11:16:51 04/30/2019 15:20:42 Body mass index 25-29 - overweight 772088959 Z68.26 Benign ess ential hypertension 7652648 I10 [id number] Angel Luis Mora MD [facility] [address] [place] [address] 7 05/25/2019 13:34:32 05/25/2019 14:45:21 Body mass index 25-29 - overweight 065813109 Z68.25 Active or passive immunization 028828914 Z23 Dean's esophagus [address] Amaya tomorrow. Intermitte nt free reflux. Possible candidate for erythromyc in protocol Benign ess ential hypertension 1714385 I10 improved control. Over 30 min.-great er than 50% counseling Lipoprotei n above reference range 813194039 E78.41 [id number] Angel Luis Mora MD [facility] [address] [place] [address] 08/20/2019 12:16:41 08/20/2019 13:16:43 Body mass index 25-29 - overweight 971085341 Z68.26 Benign ess ential hypertension 5143659 I10 acceptable control Arthropathy 581828100 M1 2.9 hands, low back-see above [id number] Angel Luis Mora MD [facility] [address] [place] [address] 10/18/2019 15:13:38 10/18/2019 16:50:32 Acute low back pain 320207781 M54.5 no sinister features. Quite demonstrat renea however. On steroids. Short-term opioid reasonable . MRI was scheduled for today but she postponed to Tuesday because of her symptom severity Nausea and vomiting 1693 1999 R11.2 [id number] Angel Luis Mora MD [facility] [address] [place] [address] 10/23/2019 12:28:23 10/23/2019 14:00:54 Benign essential hypertension 3423560 I10 acceptable control-fo r now. Scoliosis deformity of spine 573986088 M41.9 Acute low back pain 2788 34281 M54.5 no sinister features. Quite demonstrat renea earlier however. On steroids. Short-term opioid \has been helpful. MRI completed. Results being sought now. Sacroiliac joint dysfunctio n may play a role. PT likely next option. addendum: MRI report reviewed. New L3 disc herniation . Discussed with patient. Arrange physical therapy at [facility]. On principle referring to Dr. Hardeep Barnard. Conservati ve therapy may suffice Nausea 734122613 R11.0 improving. See above narrative at last visit. We'll recheck electrolyt es and white count [id number] Angel Luis Mora MD [facility] [address] [facility] [address] [place] [address] 11/14/2019 08:44:45 11/14/2019 14:07:08 Adult health examination 328015933 Z00.00 [id number] Angel Luis Mora MD [facility] [address] [facility] [address] [place] [address] 7 12/05/2019 13:46:35 12/05/2019 15:29:23 Dean's esophagus 555218025 K22.[address] Amaya tomorrow. Intermitte nt free reflux. Possible candidate for erythromyc in protocol Benign ess ential hypertension 0361267 I10 acceptable control-fo r now. Benign navya plasm of meninges 153662741 D32.9 Coronary atherosclerosis 977401790 I25.10 Cough 63164264 R05 extensivel y worked up. Gastroesop hageal reflux contributo ry. Abnormal chest CT-long stable however. He notes pulmonolog ist. Even earwx may contribute Active or passive immunization 660500302 Z23 [id number] Angel Luis Mora MD [facility] [address] [place] [address] 03/24/2020 13:31:59 03/24/2020 14:54:00 Administration of influenza vaccine 82371620 Z23 Body mass index 25-29 - overweight 906109607 Z68.26 Trochanter ic bursitis of right hip 0179313249 44390 M70.61 [id number] Angel Luis Mora MD [facility] [address] [place] [address] 7 06/03/2020 12:57:46 06/03/2020 13:57:59 Renewal of prescription 133846750 Z76.0 Dean's esophagus [address] Amaya tomorrow. Intermitte nt free reflux. Possible candidate for erythromyc in protocol Cough 66917172 R05 extensivel y worked up. Gastroesop hageal reflux contributo ry. Abnormal chest CT-long stable however. He notes pulmonolog ist. Even earwx may contribute . More broadly I think a neurogenic cause for this and her other symptoms can be supported. I have suggested increasing gabapentin to one twice daily and 2 at night-a total of 2400 mg daily [id number] Angel Luis Mora MD [facility] [address] [place] [address] 11/05/2020 10:55:33 11/05/2020 11:43:24 Body mass index 25-29 - overweight 508950517 Z68.25 Benign ess ential hypertension 2274833 I10 acceptable control-fo r now. Insomnia 054596424 G47.0 0 See above discussion [id number] Angel Luis Mora MD [facility] [address] [place] [address] 11/17/2020 10:26:54 11/17/2020 11:45:04 Adult health examination 363820592 Z00.00 Arthropathy 733519296 M1 2.9 hands, low back-see above Benign ess ential hypertension 1276961 I10 acceptable control-fo r now. [id number] Angel Luis Mora MD [facility] [address] [place] [address] 12/09/2020 14:07:06 12/09/2020 15:43:07 Dean's esophagus 373230904 K22.[address] Amaya tomorrow. Intermitte nt free reflux. 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 Gastroesop hageal reflux contributo ry. Abnormal chest CT-long stable however. He notes pulmonolog ist. Even earwx may contribute . More broadly I think a neurogenic cause for this and her other symptoms can be supported. I have suggested increasing gabapentin to one twice daily and 2 at night-a total of 2400 mg daily Impacted cerumen 8108813 6 H61.20 Environmental allergy 42 5011553 T78.49XA Remote testing. More recent test again [place] showing some allergy to a mild degree. Discussed Flonase, OTC options. Hypersomnia 92368335 G47 .10 Scoliosis deformity of spine 407431774 M41.9 Renewal of prescription 198900743 Z76.0 [id number] Angel Luis Mora MD [facility] [address] [place] [address] 01/12/2021 11:12:48 01/12/2021 11:51:34 Dean's esophagus 508502868 K22.[address] Amaya tomorrow. Intermitte nt free reflux. Possible candidate for erythromyc in protocol Diarrhea 08494359 R19.7 No new exposures. Does have cystern but does not drink from this and also has had testing and filtering. We discussed the differenti al that could include the high dose Nexium, microscopi c colitis, small bowel overgrowth , I suppose Giardia. Short-term empirical trial of Cipro discussed and she embraces this. Easy bruising 173191216 R58 No doubt combinatio n of actinic damage and age. No orifice bleeding. I recommende d reducing aspirin perhaps to once weekly [id number] Angel Luis Mora MD [facility] [address] [address] 02/03/2021 12:57:06 02/03/2021 14:17:01 Diarrhea 24163120 R19.7 No new exposures. Does have cystern but does not drink from this and also has had testing and filtering. We discussed the differenti al that could include the high dose Nexium, microscopi c colitis, small bowel overgrowth , I suppose Giardia. A considerat ion. Please see above. Seeing Dr. Amaya next week. I propose a glucose breath test Benign ess ential hypertension 1202897 I10 No classic features for pheochromo cytoma but will check urine [id number] Angel Luis Mora MD [facility] [address] [place] [address] 03/28/2021 11:06:49 03/28/2021 16:08:13 Active or passive immunization 037195798 Z23 [id number] Angel Luis Mora MD [facility] [address] [place] [address] 03/31/2021 12:55:21 03/31/2021 13:45:09 Dean's esophagus 909525591 K22.[address] Amaya tomorrow. Intermitte nt free reflux. Possible candidate for erythromyc in protocol Benign ess ential hypertension 6085091 I10 Improved and stable History suggest possible-P OTS-if symptoms escalate may call for additional evaluation with tilt table Cough 99924390 R05.3 Refractory . Full dose gabapentin not helpful. Will try pregabalin [id number] Angel Luis Mora MD [facility] [address] [place] [address] 04/22/2021 15:14:33 04/22/2021 16:37:10 Dean's esophagus 560483472 K22.[address] Amaya tomorrow. Intermitte nt free reflux. Possible candidate for erythromyc in protocol Cough 27279903 R05.3 Refractory . Full dose gabapentin not helpful. Will try pregabalin Gastroesop hageal reflux disease 372907808 K21.9 Sleep apnea 76909111 G47 .30 severe [id number] Angel Luis Mora MD [facility] [address] [place] [address] 05/25/2021 13:55:14 05/25/2021 15:17:42 Administration of influenza vaccine 82089058 Z23 Active or passive immunization 465180372 Z23 Body mass index 20-24 - normal 405735104 Z68.24 Cough 93146806 R05.3 Refractory . We will titrate up gradually to 300 mg pregabalin daily Sleep apnea 74330034 G47 .30 severe-Str vannessa indication s for CPAP. Some challenges getting adjusted and needs expert assistance through sleep specialist [id number] Angel Luis Mora MD [facility] [address] [address] [place] [address] 08/25/2021 13:29:39 08/25/2021 14:14:33 Cough 76736217 R05.3 Refractory . Pregabalin not effective. 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 [id number] Angel Luis Mora MD [facility] [address] [place] [address] 11/26/2021 09:09:43 11/26/2021 11:30:14 Adult health examination 015039437 Z00.00 Arthropathy 329727616 M1 2.9 hands, low back-see above Benign ess ential hypertension 4707951 I10 Improved and stable History suggest possible-P OTS-if symptoms escalate may call for additional evaluation with tilt table [id number] Angel Luis Mroa MD [facility] [address] 12/10/2021 13:57:44 12/10/2021 15:45:49 Renewal of prescription 655635869 Z76.0 Coronary atherosclerosis 550171569 I25.10 Gastroesop hageal reflux disease 572000446 K21.9 Lipoprotei n above reference range 977659267 E78.41 Dean's esophagus [address] Amaya tomorrow. Intermitte nt free reflux. Possible candidate for erythromyc in protocol Cough 13868497 R05.3 Refractory . Pregabalin not effective. Slow taper off Sleep apnea 03268935 G47 .30 severe-Imp roved on BiPAP [id number] Angel Luis Mora MD [facility] [address] [place] [address] 12/28/2021 14:02:01 12/28/2021 14:42:34 Glossitis 68758006 K14.0 Tiffani albicans a leading possibilit y in light of her recent steroid use. Can try magic mouthwash if nystatin not effective [id number] Angel Luis Mora MD [facility] [address] [place] [address] 04/06/2022 13:01:29 04/06/2022 15:23:33 Iron deficiency 88473873 E61.1 Liver enzy mes level above reference range 172298548 R74.01 Administra tion of influenza vaccine 35921237 Z23 [id number] Angel Luis Mora MD [facility] [address] [place] [address] 08/17/2022 12:51:33 08/17/2022 13:43:19 Body mass index 25-29 - overweight 011990576 Z68.25 Chronic sinusitis 339126 00 J32.9 On clinical grounds. Will image Chapped skin 243108547 R 23.8 [id number] Angel Luis Mora MD [facility] [address] [place] [address] 10/06/2022 13:33:17 10/06/2022 14:44:14 Osteoarthritis 329756404 M19.90 Hyponatremia 94324603 E8 7.1 see above Iron deficiency 60864209 E61.1 Sleep apnea 84143116 G47 .30 severe-Imp roved on BiPAP Motion sickness 07219203 T75.3XXS [id number] Angel Luis Mora MD [facility] [address] [place] [address] 11/30/2022 12:39:34 11/30/2022 14:48:27 Adult health examination 988790808 Z00.00 Arthropathy 851425818 M1 2.9 hands, low back-see above Benign ess ential hypertension 2411893 I10 Improved and stable History suggest possible-P OTS-if symptoms escalate may call for additional evaluation with tilt table Osteoarthritis 400422027 M19.90 [id number] Angel Luis Mora MD [facility] [address] [place] [address] 12/20/2022 12:43:17 12/20/2022 14:52:43 Body mass index 25-29 - overweight 305121429 Z68.26 Renewal of prescription 476722366 Z76.0 Dean's esophagus [address] Amaya tomorrow. Intermitte nt free reflux. Possible candidate for erythromyc in protocol Coronary atherosclerosis 551577563 I25.10 Gastroesop hageal reflux disease 130155796 K21.9 Cough 43459015 R05.3 Refractory . Pregabalin not effective. Scoliosis deformity of spine 813521891 M41.9 Osteoarthritis 085652679 M19.90 Sleep apnea 86228622 G47 .30 severe-Imp roved on BiPAP Depressive disorder 3548 9007 F32.A [id number] Angel Luis Mora MD [facility] [address] [place] [address] 01/19/2023 15:00:10 01/19/2023 16:23:28 Body mass index 25-29 - overweight 620707616 Z68.26 Iron deficiency 41577900 E61.1 Cough 02029004 R05.3 Refractory . Pregabalin not effective. Depressive disorder 3548 9007 F32.A Improved? I suppose it is possible the duloxetine could be favorably impacting this [id number] Angel Luis Mora MD [facility] [address] [facility] [address] [place] [address] 08/16/2023 09:13:21 08/16/2023 10:21:05 Body mass index 25-29 - overweight 570778838 Z68.27 Iron deficiency 02915131 E61.1 Benign ess ential hypertension 2539342 I10 Well-contr olled today. She would like to switch back to metoprolol which I think is very reasonable . Clearly labetalol is highly effective and quickly Sleep apnea 47123151 G47 .30 severe-Imp roved on BiPAP Chapped skin 805160318 R 23.8 recommende d Epiceram-s ampled Renewal of prescription 425745208 Z76.0 Benign navya plasm of meninges 381401214 D32.9 Cough 36853101 R05.3 Neurogenic component. Improved Scoliosis deformity of spine 946884290 M41.9 Responding to spinal stimulator [id number] Angel Luis Mora MD [facility] [address] [place] [address] 02/14/2024 14:34:47 02/14/2024 15:57:39 Adult health examination 269199820 Z00.00 Arthropathy 649005697 M1 2.9 hands, low back-see above Benign ess ential hypertension 8832046 I10 Well-contr olled today. She would like to switch back to metoprolol which I think is very reasonable . Clearly labetalol is highly effective and quickly Depressive disorder 3548 9007 F32.A Improved? I suppose it is possible the duloxetine could be favorably impacting this Osteoarthritis 940793795 M19.90 Current drinker 387346 F10.90 [id number] Angel Luis Mora MD [facility] [address] [place] [address] 03/02/2024 13:02:23 03/02/2024 14:14:40 Active or passive immunization 358425495 Z23 Body mass index 25-29 - overweight 257565566 Z68.27 Benign ess ential hypertension 2671985 I10 Well-contr olled today. She would like to switch back to metoprolol which I think is very reasonable . Clearly labetalol is highly effective and quickly Renewal of prescription 883939729 Z76.0 Gastroesop hageal reflux disease 859026937 K21.9 Coronary atherosclerosis 111475027 I25.10 Dean's esophagus [address] Amaya tomorrow. Intermitte nt free reflux. Possible candidate for erythromyc in protocol Cough 59404211 R05.3 Neurogenic component. Improved-D uloxetine helpful Postmenopausal state 764 98953 Z78.0 [id number] Angel Luis Mora MD [facility] [address] [place] [address] 07/03/2024 12:34:00 07/03/2024 13:28:45 Dysuria 49298858 R30.0 Pain of knee region 1003 762885 M25.561 Medial collateral ligament sprain versus meniscal tear. Injected Acute glossitis 39995013 6 K14.0 Discussed conservati ve management with saltwater gargles etc. Chronic constipation 236 692986 K59.09 [id number] Angel Luis Mora MD [facility] [address] [place] [address] 08/30/2024 11:18:47 08/30/2024 15:31:54 Active immunization 19509152 Z23 Dean's esophagus [address] Amaya tomorrow. Intermitte nt free reflux. Possible candidate for erythromyc in protocol Gastroesop hageal reflux disease 406423806 K21.9 Arthropathy 707691592 M1 2.9 hands, low back-see above Benign ess ential hypertension 2875399 I10 Addition of diuretic seems prudent Chronic cough 90217055 R 05.3 Previously and extensivel y evaluated. Likely to be neurogenic . Acid reflux may contribute . Patient suspects some role of allergies Repeated prescription 18 6521002 Z76.0 [id number] Angel Luis Mora MD [facility] [address] [place] [address] 10/15/2024 16:04:23 10/16/2024 15:06:46 Seasonal affective disorder 589996972 F33.1 Benign navya plasm of meninges 735578097 D32.9 Iron deficiency 29961838 E61.1 Benign ess ential hypertension 6748276 I10 Addition of diuretic seems prudent Health Concerns Section Related Observation LastModified by Organization Detai ls LastModified Time None Recorded Concern Status LastModified by Organization Details LastModified Time None Recorded Advance Directives Directive None Recorded Payers Encounter Date Sequence Insurance Name Policy Number Policy Wells Covered Member ID Wells Member ID Guarantor Name 02/14/2024 1 [employer] (MEDICARE) Bianca A Breeding [id number] Bianca A Breeding 02/14/[address] [facility] (MEDICARE SUPPLEMENT) Bianca A Breeding [id number] Bianca A Breeding 03/02/2024 1 [place] Bianca A Breeding [id number] Bianca A Breeding 03/02/[address] [facility] (MEDICARE SUPPLEMENT) Bianca A Breeding [id number] Bianca A Breeding 07/03/2024 1 [employer] (MEDICARE) Bianca A Breeding [id number] Bianca A Breeding 07/03/2024 2 [facility] (MEDICARE SUPPLEMENT) Bianca A Breeding [id number] Bianca A Breeding 08/30/2024 1 [place] Bianca A Breeding [id number] Bianca A Breeding 08/30/2024 2 [employer] (MEDICARE SUPPLEMENT) Bianca A Breeding [id number] Bianca Ferrari Breeding 10/15/2024 1 [place] Bianca Ferrari Breeding [id number] Bianca Ferrari Breeding 10/15/2024 2 [employer] (MEDICARE SUPPLEMENT) Bianca Ferrari Breeding [id number] Bianca Ferrari Breeding Notes Date Note Type Note Provider Name and Address Organization Details Recorded Time 4 text/html Patient presents today for the prewellness labs and procedures. Germania [place] minerva [place] Shaneka Carmen 02/14/2024 17:35:36 4 text/html Patient presents for annual wellness visit. Spinal stimulator placed in June and she is improved but not convinced it is still helping. She has had some typical ragweed allergy symptoms over the last couple of weeks and recent urinary tract infection treated by local hospital. Sun Andrea palma [place] Shaneka Carmen 03/02/2024 14:04:19 5 text/html This patient presents [...] last colonoscopy was about 18 months ago Kala Dominique minerva [place] Shaneka Guero Ines Carmen 07/03/2024 13:38:03 5 text/html This patient presents [...] her ferritin up over 100 AR Salcedo 10/15/2024 16:55:44 OBGyn Episode No OBEpisode recorded.
[2024-11-09] MEDS: ferumoxytoL 510 MG in 0.9 % SODIUM CHLORIDE 50 ML 268 MG IV (11:16)
[2024-11-09] MEDS: SODIUM CHLORIDE 0.9% 50ML BAG 50 ML IV (11:17)
[2024-11-09 11:25] VITALS: BP 120/77; PULSE 59; RESP 18; O2SAT 97
[2024-11-09 11:53] VITALS: BP 119/64; PULSE 64
== END 2024-11-09 11:55 | disposition home or self-care (01) ==
LOC: INF 11:04
PROVIDERS: PCP Internal Medicine; Visit Provider Internal Medicine Medical Oncology
DX: D50.9 Iron deficiency anemia, unspecified (principal)
CPT/HCPCS: 96374; Q0138

== ENCOUNTER 2024-12-07 14:41 | Outpatient (CLI) | payer MEDICARE, SELFPAY ==
--- OUTSIDE RECORDS SUMMARY | 2013-02-15 06:15 | XMS_ITS | Continuity of Care Document ---
Author Organization [facility] Address [address] [place] [address] Phone Care Team Providers Care Internal Communications Specialist Name Role Phone MD Pauly, Christopher Unavailable Unavailable Procedures Procedure Date CT HRT W/O DYE W/CA TEST Advance Directives Directive Yes / No Effective Date File Name No Information Encounters Encounter Description Practice Location Reason(s) For Visit Diagnoses Date Provider Providers Copied on Encounter [facility], [address], [place], [address], [place] tel:[phone] [facility] Eduardo Estrada No Information MD Christopher Coats. [address] , [address], [place], [place], [id number]. tel:[phone] Referring Provider: Rayray Sanchez, [address] [place] [address] [address], [place], [address]. tel:[phone] [facility], [address], [place], [address], [place] tel:[phone] [facility] Eduardo Estrada No Information MD Christopher Coats. [address], [address], [facility] [place], [id number]. tel:[phone] Referring Provider: Rayray Sanchez, [address] [facility] [address], [place], [address]. tel:[phone] Family History Family Member Type Diagnosis Age At Onset No Information Payers Payer name Insurance type Covered green party ID Authoriza tion(s) No Information Social History Type Description Quantity Date Captured Comments Sex Female Smoking Status No Information Chief Complaint And Reason For Visit No Information Reason For Referral Reason For Referral No Information History Of Present Illness Encounter Date Complaint History Of Prese nt Illness No Information Functional Status Date Functional Assessmen t No Information Instructions Date Instruction Additional Infor mation No Information Assessments Type Assessment Date No Information Patient Care Teams Name Effective Dates (start - stop) Status Members No Information
--- OUTSIDE RECORDS SUMMARY | 2024-05-19 17:00 | XMS_ITS ---
Author Organization [facility] Address [address] [place] [address] Care Team Providers Care Sharepoint Designer Developer Name Role Phone Js Jack Primary Care Provider UnavailArmin Clark Unavailable Self Referral, Self Unavailable Unavailable Migration, Provider Unavailable Unavailable Allergies Allergen (clinical drug ingredient) Drug/Non Drug Allergy documented on EMR Reaction Allergy Type Onset Date Status eszopiclone Lunesta Unknown Drug Allergy Activ e REASON FOR VISIT [facility] To [facility] Conversion Encounter Medications Medication SIG (Take, Route, Frequency, Duration) Notes Start Date End Date Status Rosuvastatin Calcium 20 MG 1 tab(s) oral ly once a day for 30 day(s) 09/01/2020 Unknown Metoprolol Succinate ER 50 MG (Prior Auth#:[id number]) for 90 Unknown Gabapentin 600 MG 1 tab(s) orally TID for 90 days Active diazePAM 2 MG 1 or 2 orally once P RN anxiety - procedure for 1 days 01/12/2021 Active Meloxicam 15 MG (Prior Auth#:[id number]) for 90 Unknown Climara 0.05 MG/24HR (Prior Auth#:[id number]) for 84 Unknown Encounters Encounter Location Date Provider Diagnosis [facility] [address] [place] [address] 05/19/2024 Provider Migration Plan Of Treatment No Information Progress Notes * Bianca ZAZUETADOB: [birth year] (69 yo F)Acc No.[id number]:05/19/2024 Patient: Bianca HODGES Provider: Jemma devlin Migration :1955 A ge:68 Y S ex:Female Date:05/19/2024 Address:[address] [id number] Pcp:Js Jack Subjective: * Chief Complaints: * 1 . Multum To Medispan Conversion Encounter. * Medical History: * Medications: T aking Gabapentin 600 MG Tablet 1 tab(s) orally TID , Taking diazePAM 2 MG Tablet 1 or 2 orally once PRN anxiety - procedure , Unknown Rosuvastatin Calcium 20 MG Tablet 1 tab(s) orally once a day , Unknown Metoprolol Succinate ER 50 MG Tablet Extended Release 24 Hour (Prior Auth#:[id number]) , Unknown Climara 0.05 MG/24HR Patch Weekly (Prior Auth#:[id number]) , Unknown Meloxicam 15 MG Tablet (Prior Auth#:[id number]) * Allergies: L unesta. Objective: * Vitals: Assessment: Plan: * Treatment: * Billing Information: * Visit Code: * Procedure Codes: * Electronic signature of Prov ider Migration on 12/07/2024 at 02:48 PM EDT Sign off status: Pending * Provider: Jemma devlin Migration Date: 1 07/20/2023 Generated for Abelino tony/Kunal/Naeem on: 0 12/07/2024 02:48 PM EDT
--- OUTSIDE RECORDS SUMMARY | 2024-12-07 14:44 | XMS_ITS | Encounter Summary ---
Author Organization [employer] Address [address] [place] [address] Care Team Providers Care Jet Worker Name Role Phone Guero Schmitt MD, John Primary Care Provider [phone] Encounter Details Date Type Department Care Team (Late st Contact Info) Description 03/17/2019 Transcribed Document [facility] [place] Family Medicine [facility] [place] [address] ProviderFrida MD [address] [place] [address] [id number] Social History Tobacco Use Types Packs/Day Years Used Date Smoking Tobacco: Never Assessed Comments Unknown Sex and Gender Information Value Date Recorded Sex Assigned at Not on file Legal Sex Female 5:43 PM CDT Gender Identity Not on file Sexual Orientation Not on file documented as of this encounter Miscellaneous Notes * Cerner Conversion Note - Frida Morataya MD - 03/17/2019 12:15 PM CDT Patient: BIANCA ZAZUETA Age: 63 Years Sex: Female : 1955 Chief Complaint Chest pain Reason for Consultation Chest pain evaluation History of Present Illness [age]-year-old female with history of hypertension constipation meningioma vaginal vault prolapse and rectocele who had underwent surgery yesterday robotic laparoscopy extensive lysis of adhesions Pingel oophorectomy bilaterally as outlined below. She started having chest pain about 11:00 this morning. Retrosternal without radiation form of squeezing discomfort without shortness of breath. She has dry heaves but no vomiting. She reports no previous gastric symptoms. She had stress test 25 years ago that was normal. She had recent calcium score that was borderline. She had not been on aspirin. She reports family history of CVA in her mother She had an EKG that showed sinus rhythm no ST elevation but evidence of LVH. There is no ST depression or T wave abnormalities. Initial troponin negative. Chest x-ray showed no acute cardiopulmonary process. She is still persistent. She has still Hoyos catheter in place. She has denied any cough or phlegm or hemoptysis. She denies a history of DVT or PE in the past. She is on hormone replacement therapy. She is receiving antibiotics at this time with clindamycin and aztreonam. She reports no diarrhea or abdominal pain. Patient is now drowsy states she took recently pain medication but she is able to communicate and to express her symptoms. Her at bedside also helping with her history. Review of system all system reviewed and negative except as above PREOPERATIVE DIAGNOSIS(ES): 1. Vaginal vault prolapse. 2. Rectocele. 3. Stress urinary incontinence. 4. Pelvic pain. POSTOPERATIVE DIAGNOSIS(ES): 1. Vaginal vault prolapse. 2. Rectocele. 3. Stress urinary incontinence. 4. Pelvic pain. 5. Extensive adhesions. PROCEDURE: Robotic laparoscopy, extensive lysis of adhesions, bilateral salpingo-oophorectomy, vaginal uterosacral suspension, retropubic mid-urethral sling with posterior repair, cystoscopy. SURGEON: Kerry Crisostomo M.D. Recent coronary calcium score 01/18/2019 IMPRESSION: Coronary artery calcium score of 2 based on the Agatston scale. This patient's coronary artery calcium score places the patient within the 40 percentile based on age and gender. Vital Signs T: 36.9 ??C TMIN: 36.4 ??C TMAX: 36.9 ??C HR: 67(Monitored) RR: 16 BP: 134/70 SpO2: 95% Oxygen Settings (Last) Oxygen Therapy Mode: Room air (03/16/19 20:00:00) Oxygen Flow Rate: 2 Liter/Min (03/16/19 11:00:00) Physical Exam General: [Drowsy from pain medication but cooperative.] Eyes: [Conjunctiva is clear. No lid edema. PERRLA.] ENT: [Hearing intact bilaterally. Oral mucosa is moist. No epistaxis.] Neck: [Trachea is midline. No thyromegaly noted.] Respiratory: [Breath sounds clear bilaterally. No accessory muscle use.] Cardiovascular: [Regular rate. Regular rhythm. No murmurs. No clicks. No gallops. No edema.] Gastrointestinal: [Soft. Non-tender. Non-distended. No hernia noted. No hepatomegaly. No splenomegaly.] Surgical site intact no rebound no rigidity no tenderness. Hoyos catheter in place Musculoskeletal: [Full range of motion in all four extremities. No pain in extremities. 5/5 strength in all four extremities.] Integumentary: [Intact. Warm. Dry to touch. No lesions. No rashes.] Neurologic: [CN II through XII grossly intact bilaterally. Normal bilateral sensation grossly] as above Psychiatric: [Alert. Oriented to person, place, time and situation. Appropriate mood and affect.] Assessment/Plan Retrosternal chest pain. Etiology not clear. Rule out PR. Initial troponin negative. EKG without ST elevation or ischemic changes. Also chest x-ray without acute findings Proceed with CT angiogram PE protocol given patient history of hormone replacement therapy We will also check 2D echo and ask cardiology for evaluation possible stress test work-up is negative for PE/PR We will give aspirin 325 mg and PPI Other differentials include esophageal spasm gastritis/other intra-abdominal problems. Patient has history of hypertension metoprolol and losartan. Will recheck labs today. She has a mild leukocytosis possibly expect postoperatively but she is already receiving antibiotics. She has been afebrile. Check urinalysis and procalcitonin History of GERD. Start PPI and Carafate. Vaginal prolapse as above status post surgery by Dr. Gastelum DVT prophylaxis with SCD pending her work-up Patient has history meningioma that is being followed closely without intervention. We will follow along. Thanks for consultation. Rectocele, Rectocele VTE Prophylaxis - Medical Sequential Compression Device Start: 03/16/19 12:21:00 EDT, Bilateral, Length: Knee High, Continuous Order (Key CRISOSTOMO) Provider Information Primary Care Physician - ANGEL LUIS MORA (MD LAILA-INT Attending Physician - Key CRISOSTOMO MD-OBG Admitting Physician - Key CRISOSTOMO MD-OBG Consulting Physician - WALE MARTEL MD-INT - chest pain Referring Physician - Key CRISOSTOMO MD-OBEstefanía Problem List/Past Medical History Ongoing Anxiety At risk for sleep apnea Hypertension Meningioma Historical No qualifying data Procedure/Surgical History bilateral breast reduction/lift, BNO, cysto, hysterectomy, lap michael, lysis or lesions. SN - Proc - Procedure: Laparoscopy Operative Robotic (03/16/19 08:56:18) Medications Inpatient Azactam + Sodium Chloride 0.9% intravenous solution 100 mL Climara 0.05 mg/24 hours weekly transdermal film, extended release, 1 Patch, Topical, clindamycin, 900 mg= 50 mL, IV Piggyback, Pre Procedure Colace, 100 mg= 1 Cap, Oral, BID Dulcolax Laxative, 10 mg= 1 Supp, Rectal, 1-Time hydroCHLOROthiazide, 25 mg= 1 Tab, Oral, Daily hydrOXYzine hydrochloride, 25 mg= 1 Tab, Oral, At Bedtime ibuprofen, 800 mg= 2 Tab, Oral, Q8H, PRN Linzess, 145 mcg= 1 Cap, Oral, Daily losartan, 50 mg= 1 Tab, Oral, Daily Percocet 5/325 oral tablet, 1 Tab, Oral, Q3H, PRN promethazine, 6.25 mg= 0.25 mL, IV Push, Q6H, PRN simethicone, 80 mg= 1 Tab, Oral, Q4H, PRN Toprol-XL, 50 mg= 1 Tab, Oral, At Bedtime Zofran, 4 mg= 2 mL, IV Push, Q4H, PRN Home Climara 0.05 mg/24 hours weekly transdermal film, extended release, 1 Patch, Topical, hydroCHLOROthiazide 25 mg oral tablet, 25 mg= 1 Tab, Oral, Daily hydrOXYzine hydrochloride 25 mg oral tablet, 25 mg= 1 Tab, Oral, At Bedtime Linzess 145 mcg oral capsule, 145 mcg= 1 Cap, Oral, Daily losartan 50 mg oral tablet, 50 mg= 1 Tab, Oral, Daily Melatonin 5 mg oral tablet, 5 mg= 1 Tab, Oral, Once a day (at bedtime), PRN metoprolol succinate 50 mg oral capsule, extended release, 50 mg= 1 Cap, Oral, QPM Allergies Lunesta (Swelling) Nickel (Rash) Social History Alcohol Alcohol Use History Yes. # Drinks/Day: 2. Nutrition/Health Regular Substance Abuse Drug Use Hx: No. Tobacco Never (less than 100 in lifetime) Smoking Status. Never Smokeless Tobacco Status. Family History Positive for CVA in her mother Lab Results Test Name Test Result Date/Time WBC 17.5 K/uL (High) 03/17/2019 03:59 EDT WBC 20.3 K/uL (High) 03/16/2019 14:36 EDT RBC 4.03 Million/uL 03/17/2019 03:59 EDT RBC 4.40 Million/uL 03/16/2019 14:36 EDT Hgb 11.2 Gram/dL 03/17/2019 03:59 EDT Hgb 12.6 Gram/dL 03/16/2019 14:36 EDT Hct 34.8 % 03/17/2019 03:59 EDT Hct 37.7 % 03/16/2019 14:36 EDT MCV 86.4 fL 03/17/2019 03:59 EDT MCV 85.7 fL 03/16/2019 14:36 EDT MCH 27.8 pg 03/17/2019 03:59 EDT MCH 28.6 pg 03/16/2019 14:36 EDT MCHC 32.2 Gram/dL (Low) 03/17/2019 03:59 EDT MCHC 33.4 Gram/dL 03/16/2019 14:36 EDT Platelet Count 272 K/uL 03/17/2019 03:59 EDT Platelet Count 285 K/uL 03/16/2019 14:36 EDT MPV 8.7 fL (Low) 03/17/2019 03:59 EDT MPV 8.6 fL (Low) 03/16/2019 14:36 EDT RDW 12.5 % 03/17/2019 03:59 EDT RDW 12.7 % 03/16/2019 14:36 EDT Neut % 89.0 % (High) 03/17/2019 03:59 EDT Neut % 93.9 % (High) 03/16/2019 14:36 EDT Neut # 15.56 K/uL (High) 03/17/2019 03:59 EDT Neut # 19.03 K/uL (High) 03/16/2019 14:36 EDT Lymph % 5.0 % (Low) 03/17/2019 03:59 EDT Lymph % 1.6 % (Low) 03/16/2019 14:36 EDT Lymph # 0.87 K/uL (Low) 03/17/2019 03:59 EDT Lymph # 0.33 K/uL (Low) 03/16/2019 14:36 EDT Schleicher % 5.5 % 03/17/2019 03:59 EDT Schleicher % 4.0 % (Low) 03/16/2019 14:36 EDT Schleicher # 0.97 K/uL (High) 03/17/2019 03:59 EDT Schleicher # 0.82 K/uL 03/16/2019 14:36 EDT Eos % 0.0 % (Low) 03/17/2019 03:59 EDT Eos % 0.0 % (Low) 03/16/2019 14:36 EDT Eos # 0.00 K/uL (Low) 03/17/2019 03:59 EDT Eos # 0.00 K/uL (Low) 03/16/2019 14:36 EDT Baso % 0.1 % 03/17/2019 03:59 EDT Baso % 0.1 % 03/16/2019 14:36 EDT Baso # 0.02 K/uL 03/17/2019 03:59 EDT Baso # 0.02 K/uL 03/16/2019 14:36 EDT Slide Review No 03/17/2019 03:59 EDT Slide Review No 03/16/2019 14:36 EDT IG# 0 x10(3)/uL 03/17/2019 03:59 EDT IG# 0 x10(3)/uL 03/16/2019 14:36 EDT IG% 0 % 03/17/2019 03:59 EDT IG% 0 % 03/16/2019 14:36 EDT documented in this encounter Plan of Treatment Upcoming Encounters Date Type Department Care Team (Late st Contact Info) Description 01/07/2025 1:45 PM EDT Office Visit [facility] [address] [place] [address] Tenzin Lozoya APRN [address] [place] [address] 04/01/2025 2:00 PM EDT Appointment [facility] [address] [facility] [address] [place] [address] documented as of this encounter Visit Diagnoses Not on filedocumented in this encounter Care Teams Jet Worker Relationship Specialty Start Date End Date Guero, Angel Luis Schmitt MD [address] [place] [address] PCP - General General Internal Medicine 02/28/23 documented as of this encounter
--- OUTSIDE RECORDS SUMMARY | 2024-12-07 14:44 | XMS_ITS | Encounter Summary ---
Author Organization [employer] Address [address] [place] [address] Care Team Providers Care Pyroglazer Name Role Phone Guero Schmitt MD, John Primary Care Provider [phone] Encounter Details Date Type Department Care Team (Late st Contact Info) Description 03/17/2019 Transcribed Document [facility] [place] Family [place] [facility] [place] [address] ProviderFrida MD [address] [place] [address] [id number] Social History Tobacco Use Types Packs/Day Years Used Date Smoking Tobacco: Never Assessed Comments Unknown Sex and Gender Information Value Date Recorded Sex Assigned at Not on file Legal Sex Female 5:43 PM CDT Gender Identity Not on file Sexual Orientation Not on file documented as of this encounter Miscellaneous Notes * Cerner Conversion Note - Frida Morataya MD - 03/17/2019 4:06 PM CDT Patient: BIANCA ZAZUETA Age: 63 years Sex: Female : 1955 Associated Diagnoses: None Author: ULISES COPE, MD JULIAN 1- Hyponatremia - Secondary to HCTZ vs release of ADH after surgery and nausea induced. Plan; - Urine and serum osmolality - Urine sodium level - uric acid level - Fluid restriction 1 lit/day - Agree with holding HCTZ - Serial sodium levels. Thank you very much for the consult. Will follow along. [id number] Electronically signed by Bety [facility] Conversion Retail And Promotions Coordinator Cerner at 10/01/2022 5:27 PM CDT documented in this encounter Plan of Treatment Upcoming Encounters Date Type Department Care Team (Late st Contact Info) Description 01/07/2025 1:45 PM EDT Office Visit [facility] [address] [facility] [address] [place] [address] Tenzin Lozoya APRN [address] [place] [address] 04/01/2025 2:00 PM EDT Appointment [facility] [address] [facility] [address] [place] [address] documented as of this encounter Visit Diagnoses Not on filedocumented in this encounter Care Teams Pyroglazer Relationship Specialty Start Date End Date Js Jack MD [address] [facility] [address] [place] [address] PCP - General General Internal Medicine 02/28/23 documented as of this encounter
--- OUTSIDE RECORDS SUMMARY | 2024-12-07 14:44 | XMS_ITS | Encounter Summary ---
Author Organization [employer] Address [address] [place] [address] Care Team Providers Care Umbrella Finisher Name Role Phone Guero Schmitt MD, John Primary Care Provider [phone] Encounter Details Date Type Department Care Team (Late st Contact Info) Description 03/17/2019 Transcribed Document [facility] [place] Family Medicine [address] [place] [address] ProviderFrida MD [address] [place] [address] Social History Tobacco Use Types Packs/Day Years Used Date Smoking Tobacco: Never Assessed Comments Unknown Sex and Gender Information Value Date Recorded Sex Assigned at Not on file Legal Sex Female 5:43 PM CDT Gender Identity Not on file Sexual Orientation Not on file documented as of this encounter Miscellaneous Notes * Cerner Conversion Note - Frida ProviderMD - 03/17/2019 5:00 AM CDT Chart Check - Review Order Profile Entered On: 03/17/2019 8:46 EDT Performed On: 03/17/2019 5:00 EDT by Yari Olson RN Chart Check Powerplans Initiated/Discontinued as Appropriate : Yes All Active Orders Reviewed : Yes Yari Olson RN - 03/17/2019 8:46 EDT documented in this encounter Plan of Treatment Upcoming Encounters Date Type Department Care Team (Late st Contact Info) Description 01/07/2025 1:45 PM EDT Office Visit [address] [place] [address] Tenzin Lozoya APRN [address] [place] [address] 04/01/2025 2:00 PM EDT Appointment [facility] [address] [place] [address] documented as of this encounter Visit Diagnoses Not on filedocumented in this encounter Care Teams Umbrella Finisher Relationship Specialty Start Date End Date Guero, Js Schmitt MD [address] [facility] [address] [place], [place] [id number] PCP - General General Internal Medicine 02/28/23 documented as of this encounter
--- OUTSIDE RECORDS SUMMARY | 2024-12-07 14:44 | XMS_ITS | Encounter Summary ---
Author Organization [employer] Address [address] [place] [address] Care Team Providers Care Building Equipment Inspector Name Role Phone Guero Schmitt MD, John Primary Care Provider [phone] Encounter Details Date Type Department Care Team (Late st Contact Info) Description 03/17/2019 Transcribed Document [facility] [place] Family Medicine [address] [place] [address] ProviderFrida MD [address] [place] [phone] Social History Tobacco Use Types Packs/Day Years Used Date Smoking Tobacco: Never Assessed Comments Unknown Sex and Gender Information Value Date Recorded Sex Assigned at Not on file Legal Sex Female 5:43 PM CDT Gender Identity Not on file Sexual Orientation Not on file documented as of this encounter Miscellaneous Notes * Cerner Conversion Note - Frida Morataya MD - 03/17/2019 10:57 AM CDT Initial Discharge Planning Entered On: 03/17/2019 10:57 EDT Performed On: 03/17/2019 10:57 EDT by ABDI TSANG, Care Management-Stripping And Booking Machine Operator Initial Assessment I Previously Documented Living Environment : No qualifying data available. Living Situation : Home Patient Lives With : Spouse Emergency Contact #1 : Santiago Emergency Contact #1 Emergency Contact #1 Relationship : spouse Emergency Contact #2 : . Emergency Contact #2 Phone Number : . Emergency Contact #2 Relationship : . ABDI TSANG, Care Management-Stripping And Booking Machine Operator - 03/17/2019 10:57 EDT Initial Assessment II Deficit Description : cystocele, rectocele, lap procedure Current Home Treatments and Equipment : None ABDI TSANG Care Management-Stripping And Booking Machine Operator - 03/17/2019 10:57 EDT Discharge Needs I Anticipated Discharge Date : 03/17/2019 EDT Anticipated Discharge To, CM : Home with family care Current Home Treatment/Equipment : Current Home Treatment/Equipment No qualifying data available. Post Acute/Home Treatments : None Documentation Status Complete : Yes ABDI TSANG Care Management-Stripping And Booking Machine Operator - 03/17/2019 10:57 EDT Discharge Needs II Professional Skilled Services : Professional Skilled Services No qualifying data available. ABDI TSANG Care Management-Stripping And Booking Machine Operator - 03/17/2019 10:57 EDT documented in this encounter Plan of Treatment Upcoming Encounters Date Type Department Care Team (Late st Contact Info) Description 01/07/2025 1:45 PM EDT Office Visit [facility] [address] [place] [address] Tenzin Lozoya APRN [address] [facility] [address] [place] [address] 04/01/2025 2:00 PM EDT Appointment [facility] [address] [facility] [address] [place] [address] documented as of this encounter Visit Diagnoses Not on filedocumented in this encounter Care Teams Building Equipment Inspector Relationship Specialty Start Date End Date Js Jack MD [address] [place] [address] PCP - General General Internal Medicine 02/28/23 documented as of this encounter
--- OUTSIDE RECORDS SUMMARY | 2024-12-07 14:44 | XMS_ITS | Encounter Summary ---
Author Organization [employer] Address [address] [place] [address] Care Team Providers Care Associate Creative Director Name Role Phone Guero Schmitt MD, John Primary Care Provider [phone] Encounter Details Date Type Department Care Team (Late st Contact Info) Description 03/17/2019 Transcribed Document [facility] [place] [facility] [place] [address] ProviderFrida MD [address] [place] [id number] Social History Tobacco Use Types Packs/Day Years Used Date Smoking Tobacco: Never Assessed Comments Unknown Sex and Gender Information Value Date Recorded Sex Assigned at Not on file Legal Sex Female 5:43 PM CDT Gender Identity Not on file Sexual Orientation Not on file documented as of this encounter Miscellaneous Notes * Cerner Conversion Note - Frida ProviderMD - 03/17/2019 2:59 PM CDT Patient: BIANCA ZAZUETA Age: 63 Years Sex: Female : 1955 Further work-up came back with positive normalities for hyponatremia. Possibly related to valuation of osmolalities. Check TSH level Nursing staff informed me that the patient refused cta chest documented in this encounter Plan of Treatment Upcoming Encounters Date Type Department Care Team (Late st Contact Info) Description 01/07/2025 1:45 PM EDT Office Visit [address] [place] [address] Tenzin Lozoya APRN [address] [place] [address] 04/01/2025 2:00 PM EDT Appointment [facility] [address] [facility] [address] [place] [address] documented as of this encounter Visit Diagnoses Not on filedocumented in this encounter Care Teams Associate Creative Director Relationship Specialty Start Date End Date Guero, Js Schmitt MD [address] [facility] [address] [place] [address] PCP - General General Internal Medicine 02/28/23 documented as of this encounter
--- OUTSIDE RECORDS SUMMARY | 2024-12-07 14:44 | XMS_ITS | Encounter Summary ---
Author Organization [employer] Address [address] [place] [address] Care Team Providers Care Breakfast Supervisor Name Role Phone Guero Schmitt MD, John Primary Care Provider [phone] Encounter Details Date Type Department Care Team (Late st Contact Info) Description 03/26/2019 Transcribed Document [facility] [place] Family [place] [facility] [place] [address] ProviderFrida MD [address] [place] [phone] Social History Tobacco Use Types Packs/Day Years Used Date Smoking Tobacco: Never Assessed Comments Unknown Sex and Gender Information Value Date Recorded Sex Assigned at Not on file Legal Sex Female 5:43 PM CDT Gender Identity Not on file Sexual Orientation Not on file documented as of this encounter Miscellaneous Notes * Cerner Conversion Note - Frida Morataya MD - 03/26/2019 7:25 AM CDT DATE OF PROCEDURE: 03/18/2019 PREOPERATIVE DIAGNOSIS(ES): Perforated viscus. POSTOPERATIVE DIAGNOSIS(ES): Negative exploratory laparoscopy. PROCEDURE: Diagnostic laparoscopy. SURGEON: Arturo Georges MD FINDINGS: No evidence of intra-abdominal perforation. INDICATION: Patient is a 63-year-old woman who underwent gynecological procedure two days ago. She is having increased pain and sepsis, increased white count, increased lactic acidosis, and CAT scan was suggestive of perforated viscus. The risks and benefits were discussed with her and she was taken emergently to the operating room. OPERATION/PROCEDURE DESCRIPTION: After obtaining informed consent, she was taken to the operating room, placed in supine position. General anesthesia was induced and the patient's abdomen was then prepped and draped in standard surgical fashion. A right upper quadrant 5 mm incision was made. The Veress needle was inserted. The abdomen was insufflated with carbon dioxide gas and the protected trocar was then placed. Remaining trocars were placed under direct vision. The entire abdominal cavity was surveilled. The patient did not have any evidence of intra-abdominal injury and/or perforation and/or bleeding. The entire intraperitoneal gastrointestinal tract was examined as well as the pelvis. There was no evidence of any contamination. Dr. Crisostomo was present in the operating room during the procedure. With no contamination of perforation, this operation was completed and the trocars were removed. Incisions were closed. Sterile dressings were applied. The patient was awakened and taken to recovery area. Arturo Georges M.D. Dict: 03/26/2019 07:25:26 Trans: 03/26/2019 07:46:43 CC1: Arturo Georges M.D. documented in this encounter Plan of Treatment Upcoming Encounters Date Type Department Care Team (Late st Contact Info) Description 01/07/2025 1:45 PM EDT Office Visit [facility] [address] [place] [address] Tenzin Lozoya APRN [address] [place] [address] 04/01/2025 2:00 PM EDT Appointment [facility] [address] [place] [address] documented as of this encounter Visit Diagnoses Not on filedocumented in this encounter Care Teams Breakfast Supervisor Relationship Specialty Start Date End Date Js Jack MD [address] [facility] [address] [place] [address] PCP - General General Internal Medicine 02/28/23 documented as of this encounter
--- OUTSIDE RECORDS SUMMARY | 2024-12-07 14:45 | XMS_ITS | Encounter Summary ---
Author Organization [employer] Address [address] [place] [address] Care Team Providers Care Community Liaison Name Role Phone Guero Schmitt MD, John Primary Care Provider Encounter Details Date Type Department Care Team (Late st Contact Info) Description 03/22/2019 Transcribed Document [facility] [place] [address] ProviderFrida MD [address] [place] [id number] Social History Tobacco Use Types Packs/Day Years Used Date Smoking Tobacco: Never Assessed Comments Unknown Sex and Gender Information Value Date Recorded Sex Assigned at Not on file Legal Sex Female 5:43 PM CDT Gender Identity Not on file Sexual Orientation Not on file documented as of this encounter Miscellaneous Notes * Cerner Conversion Note - Frida Morataya MD - 03/22/2019 4:02 PM CDT Final Discharge Planning Entered On: 03/22/2019 16:02 EDT Performed On: 03/22/2019 16:02 EDT by ABEBA SHEPARD RN-Teacher Cclc Final Discharge Planning Discharge Arrangements : Patient Post-Acute Information Patient Name: BIANCA ZAZUETA Gender: Female : [birth year] Age: 63 Years No Post-Acute Placement(s) Listed No Post-Acute Service(s) Listed No Curaspan Referral(s) Listed Is Patient High/Moderate Readmission Risk? : No Discharge To Care Management : Home/Residential/Care Home or Self Care -01 ABEBA SHEPARD, RN-Teacher Cclc - 03/22/2019 16:02 EDT documented in this encounter Plan of Treatment Upcoming Encounters Date Type Department Care Team (Late st Contact Info) Description 01/07/2025 1:45 PM EDT Office Visit [facility] [address] [place] [address] Tenzin Lozoya APRN [address] [place] [address] 04/01/2025 2:00 PM EDT Appointment [facility] [address] [place] [address] documented as of this encounter Visit Diagnoses Not on filedocumented in this encounter Care Teams Community Liaison Relationship Specialty Start Date End Date Js Jack MD [address] [place] [address] PCP - General General Internal Medicine 02/28/23 documented as of this encounter
--- OUTSIDE RECORDS SUMMARY | 2024-12-07 14:45 | XMS_ITS | Data Portability ---
Author Organization [facility] OMID [employer]OS[employer] Address [address] [place] [address] Care Team Providers Care Bean Snapper Name Role Phone ANGEL LUIS MORA Referring Provider [phone] Assessment No assessment recorded. Plan of Treatment Reminders Order Date Submit Date Provider Last Modified By Organization Details Last Modified Time Details Appointments None recorded. Lab None recorded. Referral None recorded. Procedures None recorded. Surgeries None recorded. Imaging None recorded. Medication Orders cefdinir 300 mg capsule 2022 023 [facility] [facility] #[id number], [address] [place], [place], [id number], 3 13:00:17 Flonase Allergy Relief 50 mcg/actuat ion nasal spray,susp ension 2022 023 [facility] [employer] [facility] #[id number], [address] [place], [place], [id number], 3 13:00:16 Patient TargetsNo targets recorded. Patient InstructionsNo instructions recorded. Reason for Referral None Reported. Procedures Surgical History Date Name Laterality Status Provider Name and Address Organization Details Recorded Time 09/16/19 23 Nasolaryngoscopy completed DEXTER PABLO MD [address] [place], [address], [facility] 09/15/2022 12:59:43 hysterectomy completed Dann Olivia [facility] 09/15/2022 12:04:31 discectomy of spine completed Manfred Olivia [facility] 09/15/2022 12:04:49 partial repair of rotator cuff completed Dann Olivia [facility] 09/15/2022 12:05:01 Imaging Results None recorded. Procedure Notes None recorded. Medical Equipment None Reported. Allergies Allergen ID Allergen Name Allergen Category Reaction Reaction Severity Criticality Documentation Date Start Date Code Code System Note Provider Name and Address Organization Details Recorded Time 343056 Lunesta medicatio n facial swelling Not available high 09/15/2022 43903 4 RxNorm Dann Olivia [facility] 12:03:42 Medications Name Sig Start Date Stop [...] Updated DateTime 3 165.1 cm 24.6 kg/m2 91570.6 7 g 58 /min 137 mm[Hg] 90 mm[Hg] Dann Olivia [facility] 3 12:09:13 Social History None recorded. Functional Status None recorded. Mental Status None recorded. Family History Nothing Reported. Medical History No medical history recorded. Gynecological HistoryNo gynecological history recorded. Obstetrics History GPAL:G 0 P 0 0 0 0 Past Encounters Encounter ID Performer Location Encounter Start Date Encounter Closed Date Diagnosis/Indication Diagnosis SNOMED-CT Code Diagnosis ICD10 Code Diagnosis Note [id number] DEXTER PABLO MD ENT [address] [place] [address] 09/15/2022 10:56:32 09/15/2022 13:01:20 Chronic sinusitis 37533423 J32.[address] report. Shows chronic sphenoid sinusitis which is likely the source of the thick mucus and exacerbati ng cough. No evident infection on endoscopy. Omnicef for 3wks. Flonase and sinus rinse. F/u 1mo Chronic cough 62495903 R 05.3 Health Concerns Section Related Observation LastModified by Organization Detai ls LastModified Time None Recorded Concern Status LastModified by Organization Details LastModified Time None Recorded Advance Directives Directive None Recorded Payers Insurance Date Sequence Insurance Name Policy Number Policy Wells Covered Member ID Wells Member ID Guarantor Name 09/15/2022 2 [employer] (MEDICARE SUPPLEMENT) Bianca Breeding [id number] Bianca Breeding 09/15/2022 1 [place]ARE[place] Bianca Ferrari Breeding [id number] Bianca Breeding Notes Date Note Type Note Provider Name and Address Organization Details Recorded Time 09/15/2022 text/html Ref: Angel Luis Rolanda arndt MDChief Complaint: Post-nasal drainageTimin-4 monthsDuration: constantLocation:Sev erity: moderateQuality: thick/excessiveConte xt:Hx of chronic cough, HX of GERD, CT sinus at [facility], no hx nasal/sinus surgery, dx sleep apneaModifying Factors: nasal saline spray, OTC mucous relief - no improvement, NexiumAssoc signs and symptoms: heavy mucus/PND that she cannot get up and makes her cough even more, anxiety and dyspnea, throat clearing, chronic cough for 20yrs, mild hoarseness, no diplopia, throat & ear sensitivity DEXTER PABLO MD [facility] [place], [address], [facility] 09/15/2022 13:00:12 OBGyn Episode No OBEpisode recorded.
--- OUTSIDE RECORDS SUMMARY | 2024-12-07 14:45 | XMS_ITS | Encounter Summary ---
Author Organization [employer] Address [address] [facility] [place] [address] Care Team Providers Care Biomedical Analytical Scientist Name Role Phone Guero Schmitt MD, John Primary Care Provider [phone] Encounter Details Date Type Department Care Team (Late st Contact Info) Description 03/16/2019 Transcribed Document [facility] [place] [facility] [place] [address] ProviderFrida MD [address] [place] [id number] Social History Tobacco Use Types Packs/Day Years Used Date Smoking Tobacco: Never Assessed Comments Unknown Sex and Gender Information Value Date Recorded Sex Assigned at Not on file Legal Sex Female 5:43 PM CDT Gender Identity Not on file Sexual Orientation Not on file documented as of this encounter Miscellaneous Notes * Cerner Conversion Note - Frida Morataya MD - 03/16/2019 5:35 AM CDT Admission History, Adult Entered On: 03/16/2019 10:36 EDT Performed On: 03/16/2019 5:35 EDT by Catalina Solomon RN Advance Directive Patient has Advance Directive *Q : No, patient refuses Advance Directive information Catalina Solomon RN - 03/16/2019 10:34 EDT Anesthesia/Transfusion History Family History of Anesthesia Reaction : No prior transfusion(s) Transfusion History : Prior anesthesia without reaction Family History of Anesthesia Reaction : None Catalina Solomon RN - 03/16/2019 10:34 EDT Anticipated Discharge Needs Discharge To, Anticipated : Home Catalina Solomon RN - 03/16/2019 10:34 EDT Education Topics, Admission Orientation DCP GENERIC CODE Advance Directives : Verbalizes understanding Allergy Band Applied : Verbalizes understanding Assessment/Vital Signs : Verbalizes understanding Bed Control : Verbalizes understanding Call Light : Verbalizes understanding Confidentiality : Verbalizes understanding Diet/Room Service : Verbalizes understanding Fall Prevention : Verbalizes understanding Hand Hygiene : Verbalizes understanding Healthcare Provider Visit : Verbalizes understanding ID Band Applied : Verbalizes understanding Isolation Precautions : Verbalizes understanding Orientation to Room/Bathroom : Verbalizes understanding Patient Bill of Rights : Verbalizes understanding Patient Rights/Responsibilities : Verbalizes understanding Patient Safety : Verbalizes understanding Personal Privacy Code : Verbalizes understanding Rapid Response Initiated by Patient/Family : Verbalizes understanding Rounding : Verbalizes understanding Siderails use/risks : Verbalizes understanding Skin Precautions : Verbalizes understanding Smoking Policy : Verbalizes understanding Telemetry Monitoring : Verbalizes understanding Television/Phone : Verbalizes understanding Visiting Policy : Verbalizes understanding Catalina oSlomon RN - 03/16/2019 10:34 EDT Functional Assessment Living Situation : Home Patient Lives With : Spouse Persons Assisting Patient at Home : Spouse Current Daily Living Assistance : None Sensory Deficits : None Mobility Assistance Prior to Admission : Independent LOU Hx Falls Immediate/Within 3 Months : No Current Home Treatments : None Home Equipment : None Catalina Solomon RN - 03/16/2019 10:34 EDT General Info Name/Contact Info Fam/Rep Notified Adm : Dr. Js Jack Name/Contact Info Physician Notified Adm : cell= [phone] office= [phone] Yari Olson RN - 03/18/2019 7:07 EDT Arrived From : Home Mode of Arrival on Unit : Ambulatory Legal Guardian : Spouse Catalina Solomon RN - 03/16/2019 10:34 EDT Want Family/Rep/Phys Notified of Admit : Yes Yari Olson RN - 03/18/2019 7:07 EDT Emergency Contact #1 : [place] Emergency Contact #1 Emergency Contact #1 Relationship : spouse Emergency Contact #2 : . Emergency Contact #2 Phone Number : . Emergency Contact #2 Relationship : . Information Obtained From : Patient Primary Language : Swazi Preferred Communication Mode : Verbal Communication Barrier : None Objects to Sharing Info w Family : No Catalina Solomon RN - 03/16/2019 10:34 EDT Fall Risk Scales ABCs Fall Injury Risk Identification : None LOU Hx Falls Immediate/Within 3 Months : No Lou Secondary Diagnosis : Yes LOU Use of Ambulatory Aid : Bed rest/Nurse assist LOU IV Therapy or IV Access : Yes Lou Gait/Transferring : Normal, bedrest, immobile Lou Mental Status : Oriented to own ability Lou Fall Risk Score : 35 LOU Fall Scale Risk Level : 25-45 Medium Risk [place] Fall Interventions : Adequate lighting, Bed in low position, Frequent orientation to call device, Personal items within reach, Room free of clutter/spills, Upper side-rails up, Wheels locked Barriers to Learning : None evident Learning Style Preferences Patient : Verbal explanation Catalina Solomon RN - 03/16/2019 10:34 EDT Health Histories Smoking Status : Never (less than 100 in lifetime; none in last 30 days) Smokeless Tobacco Status : Never Catalina Solomon RN - 03/16/2019 10:34 EDT Social History (As Of: 03/16/2019 10:36:46 EDT) Tobacco: Never (less than 100 in lifetime) Smoking Status. Never Smokeless Tobacco Status. (Last Updated: 03/13/2019 12:56:46 EDT by Aliya Powers, ZOHREH) Alcohol: Alcohol Use History Yes. # Drinks/Day: 2. (Last Updated: 03/13/2019 12:56:46 EDT by Aliya Powers, ZOHREH) Substance Abuse: Drug Use Hx: No. (Last Updated: 03/13/2019 12:56:46 EDT by Aliya Powers, ZOHREH) Nutrition/Health: Regular (Last Updated: 03/13/2019 12:56:46 EDT by Aliya Powers, ZOHREH) Height and Weight, Clinical Dosing Height Source : Stated Height Entry Format : [place] Height, Feet : 5 ft(Converted to: 152 cm, 60 Inch) Height, Inches : 5 Inch(Converted to: 0 ft 5 Inch, 12.70 cm) Clinical Height : 165.1 cm Weight Source : Standing scale Weight Entry Format : Republic Clinical Dosing Weight : 74.55 kg Weight, Pounds : 164 lb Body Surface Area (BSA) : 1.82 m2 Body Mass Index : 27.3 kg/m2 (HI) [place] Body Weight : 57 kg Catalina Solomon RN - 03/16/2019 10:34 EDT Infectious Disease History Infectious Disease History : None Isolation Needed : Standard Fever/Chills Last 48 Hours : No Travel To Regions with Travel Advisories : No Travel Outside [place] Within Last 30 Days : No Contact With Traveler to Advisory Region : No Tuberculosis Symptoms : None Catalina Solomon RN - 03/16/2019 10:34 EDT Tetanus Immunization Status Previous Tetanus Immunizations : No qualifying data available. Catalina Solomon RN - 03/16/2019 10:34 EDT Influenza Vaccine Asmt, Adult Previous Vaccines from Immunization Schedule : No qualifying data available. Influenza Immunization, Current Season : No Inactivated Flu Vaccine Contraindications : No contraindications to inactivated influenza vaccine Transplant Workup/Recent Transplant : No Order for Influenza Vaccine : Declined Vaccination Catalina Solomon RN - 03/16/2019 10:34 EDT Pneumococcal Vaccine Previous Vaccines from Immunization Schedule : No qualifying data available. Pneumonia Immunization Received : No Pneumococcal Risk Assessment < Age 65 : None Catalina Solomon RN - 03/16/2019 10:34 EDT Order Details Order Detail : 0 IV Order Detail : 1 Oxygen Order Detail : 1 Nurse Collect Order Detail : 0 Lift/Transfer : Moderate assist Central Line Order Detail : No Room Service : Appropriate Arterial Line : No Catalina Solomon RN - 03/16/2019 10:34 EDT Nutrition History Eating Poorly Due to Decreased Appetite : No Unplanned Weight Loss in Past 3-6 Months : No Malnutrition Screening Tool Total(mal) : 0 Malnutrition Screening Tool Risk Level : Patient not at risk Catalina Solomon RN - 03/16/2019 10:34 EDT Psychosocial History Do You Have a History of the Following? : Anxiety, Other: claustrophobia Currently in Unsafe Situation : No Tried to Harm Yourself in the Past? : No Thoughts of Harming/Killing Yourself : No Catalina Solomon RN - 03/16/2019 10:34 EDT Sleep Apnea Risk Assmt Hx of Obstructive Sleep Apnea Diagnosis : No Snore Loudly : Yes Tired, Fatigued, or Sleepy During Day : No Observed Stopping Breathing During Sleep : Yes Have/Are Being Treated for Hypertension : Yes BMI Greater Than 35 kg/m2 : No Age over 50 Years Old : Yes Neck Circumference Greater Than 40 cm : No Gender Male : No STOP-BANG Sleep Apnea Risk Level Score : 4 Catalina Solomon RN - 03/16/2019 10:34 EDT Spiritual/Cultural Needs Any Spiritual/Cultural Needs or Requests : No Catalina Solomon RN - 03/16/2019 10:34 EDT Valuables and Belongings Valuables and Belongings : Clothing, Personal devices, Personal items Clothing : Common streetwear Clothing Disposition : With family Personal Device Disposition : With family Personal Devices : Glasses Personal Items : Cell phone Personal Items Disposition : With family Catalina Solomon RN - 03/16/2019 10:34 EDT documented in this encounter Plan of Treatment Upcoming Encounters Date Type Department Care Team (Late st Contact Info) Description 01/07/2025 1:45 PM EDT Office Visit [facility] [address] [place] [address] Tenzin Lozoya APRN [address] [place] [address] 04/01/2025 2:00 PM EDT Appointment [facility] [address] [place] [address] documented as of this encounter Visit Diagnoses Not on filedocumented in this encounter Care Teams Biomedical Analytical Scientist Relationship Specialty Start Date End Date Js Jack MD [address] [place] [address] PCP - General General Internal Medicine 02/28/23 documented as of this encounter
--- OUTSIDE RECORDS SUMMARY | 2024-12-07 14:45 | XMS_ITS | Encounter Summary ---
Author Organization [employer] Address [address] [place] [address] Care Team Providers Care Fire Protection Designer Name Role Phone Guero Schmitt MD, John Primary Care Provider [phone] Encounter Details Date Type Department Care Team (Late st Contact Info) Description 03/21/2019 Transcribed Document [facility] [place] Medicine [address] [place] [address] ProviderFrida MD [address] [place] [address] Social History Tobacco Use Types Packs/Day Years Used Date Smoking Tobacco: Never Assessed Comments Unknown Sex and Gender Information Value Date Recorded Sex Assigned at Not on file Legal Sex Female 5:43 PM CDT Gender Identity Not on file Sexual Orientation Not on file documented as of this encounter Miscellaneous Notes * Cerner Conversion Note - Frida ProviderMD - 03/21/2019 5:00 AM CDT Chart Check - Review Order Profile Entered On: 03/21/2019 5:46 EDT Performed On: 03/21/2019 5:00 EDT by Glenny Garcia, Rn Chart Check Powerplans Initiated/Discontinued as Appropriate : Yes All Active Orders Reviewed : Yes Glenny Garcia Rn - 03/21/2019 5:46 EDT documented in this encounter Plan of Treatment Upcoming Encounters Date Type Department Care Team (Late st Contact Info) Description 01/07/2025 1:45 PM EDT Office Visit [address] [place] [address] Tenzin Lozoya APRN [address] [place] [address] 04/01/2025 2:00 PM EDT Appointment [facility] [address] [place] [address] documented as of this encounter Visit Diagnoses Not on filedocumented in this encounter Care Teams Fire Protection Designer Relationship Specialty Start Date End Date Guero, Js Schmitt MD [address] [place] [id number] PCP - General General Internal Medicine 02/28/23 documented as of this encounter
--- OUTSIDE RECORDS SUMMARY | 2024-12-07 14:45 | XMS_ITS | Encounter Summary ---
Author Organization [employer] Address [address] [place] [address] Care Team Providers Care Progress Developer Name Role Phone Guero Schmitt MD, John Primary Care Provider [phone] Encounter Details Date Type Department Care Team (Late st Contact Info) Description 03/21/2019 Transcribed Document [facility] [place] [address] [place] [address] ProviderFrida MD [address] [place] [address] Social History Tobacco Use Types Packs/Day Years Used Date Smoking Tobacco: Never Assessed Comments Unknown Sex and Gender Information Value Date Recorded Sex Assigned at Not on file Legal Sex Female 5:43 PM CDT Gender Identity Not on file Sexual Orientation Not on file documented as of this encounter Miscellaneous Notes * Cerner Conversion Note - Frida Morataya MD - 03/21/2019 8:16 AM CDT [facility] Summary Primary Physician: SAMEERA IRELAND MD-GAE Finalized Date/Time: 03/21/19 08:41:51 Pt. Name: BIANCA ZAZUETA BLADIMIR /Sex: 1955 Female Med Rec #: [id number] Physician: Key SIMMONS MD-OBG Financial #: [id number] Pt. Type: I Room/Bed: [facility]/1 Admit/Disch: 03/18/19 07:52:00 - Institution: [facility] PACU Case Times Entry 1 In PACU I 03/21/19 08:22:00 Ready for PACU 03/21/19 08:41:00 Discharge Discharge from PACU 03/21/19 08:41:00 [facility] PACU Case Times Audit 03/21/19 08:41:50 Oil Field Pumper: WILFREDO Modifier: WILFREDO <+> 1 Discharge from PACU I Finalized By: YANETH WALLS, RN Document Signatures Signed By: YANETH WALLS RN 03/21/19 08:41 documented in this encounter Plan of Treatment Upcoming Encounters Date Type Department Care Team (Late st Contact Info) Description 01/07/2025 1:45 PM EDT Office Visit [facility] [address] [place] [address] Tenzin Lozoya APRN [address] [place] [address] 04/01/2025 2:00 PM EDT Appointment [facility] [address] [facility] [address] [place] [address] documented as of this encounter Visit Diagnoses Not on filedocumented in this encounter Care Teams Progress Developer Relationship Specialty Start Date End Date Js Jack MD [address] [facility] [address] [place], [place] [id number] PCP - General General Internal Medicine 02/28/23 documented as of this encounter
--- OUTSIDE RECORDS SUMMARY | 2024-12-07 14:45 | XMS_ITS | Encounter Summary ---
Author Organization [employer] Address [address] [place] [address] Care Team Providers Care Children'S Attendant Name Role Phone Guero Schmitt MD, John Primary Care Provider [phone] Encounter Details Date Type Department Care Team (Late st Contact Info) Description 03/22/2019 Transcribed Document [facility] [place] Medicine [address] [place] [address] ProviderFrida MD [address] [place] [address] Social History Tobacco Use Types Packs/Day Years Used Date Smoking Tobacco: Never Assessed Comments Unknown Sex and Gender Information Value Date Recorded Sex Assigned at Not on file Legal Sex Female 5:43 PM CDT Gender Identity Not on file Sexual Orientation Not on file documented as of this encounter Miscellaneous Notes * Cerner Conversion Note - Frida Morataya MD - 03/22/2019 3:34 PM CDT Stroke/Warfarin Instructions Entered On: 03/22/2019 15:34 EDT Performed On: 03/22/2019 15:34 EDT by Luisa Simon Rn Stroke/Warfarin Instructions Stroke/TIA Discharge Ins : N/A Warfarin Discharge Ins : N/A Luisa Simon Rn - 03/22/2019 15:34 EDT documented in this encounter Plan of Treatment Upcoming Encounters Date Type Department Care Team (Late st Contact Info) Description 01/07/2025 1:45 PM EDT Office Visit [address] [place] [address] Tenzin Lozoya APRN [address] [place] [address] 04/01/2025 2:00 PM EDT Appointment [facility] [address] [place] [address] documented as of this encounter Visit Diagnoses Not on filedocumented in this encounter Care Teams Children'S Attendant Relationship Specialty Start Date End Date Guero, Js Schmitt MD [address] [facility] [address] [place], [place] [address] PCP - General General Internal Medicine 02/28/23 documented as of this encounter
--- OUTSIDE RECORDS SUMMARY | 2024-12-07 14:45 | XMS_ITS | Encounter Summary ---
Author Organization [email or web address] Address [address] [place] [address] Care Team Providers Care Rug Dyer Helper Name Role Phone Guero Schmitt MD, John Primary Care Provider [phone] Encounter Details Date Type Department Care Team (Late st Contact Info) Description 04/05/2019 Transcribed Document [facility] [place] [address] ProviderFrida MD [address] [place] [id number] Social History Tobacco Use Types Packs/Day Years Used Date Smoking Tobacco: Never Assessed Comments Unknown Sex and Gender Information Value Date Recorded Sex Assigned at Not on file Legal Sex Female 5:43 PM CDT Gender Identity Not on file Sexual Orientation Not on file documented as of this encounter Miscellaneous Notes * Cerner Conversion Note - Frida Morataya MD - 04/05/2019 11:21 AM CDT UM Authorization Entered On: 04/05/2019 11:21 EDT Performed On: 04/05/2019 11:21 EDT by BEST IBANEZ RN Primary Insurance Authorization Authorization and Policy Numbers : Insurance 1 Health Plan: [employer] Policy Number: [id number] Authorization Number: IP DENIED SENT TO [employer] Insurance Primary Name : Nay [facility] [id number] Authorization Status-Primary : Denial - admission Authorization Number-Primary : [id number] Authorized Service Begin Date-Primary : 03/18/2019 EDT Historical Authorization Comments-Primary : Comment 1: Called discussed case with Edenilson at [employer] she stated they do not allow reconsiderations. Only P2P and appeals. Dr. Crisostomo office has yet to return my numerous request for a P2P. Sent to appeals. (BEST IBANEZ RN 04/03/2019 15:48) Comment 2: fax will not transmit. Called to Dr. Crisostomo office and left a VM. (BEST IBANEZ RN 04/02/2019 13:33) Comment 3: Found fax # for office [phone] and faxed denial. (BEST IBANEZ RN 04/02/2019 08:39) Comment 4: Called Dr. Crisostomo office to discuss denial-- Per Jordy she will give check with Dr. Crisostomo regarding completing P2P (BEST IBANEZ RN 03/30/2019 11:06) Comment 5: 03/28/[address] Crisostomo office for P2P (BEST IBANEZ RN 03/30/2019 11:03) Comment 6: Faxed reconsideration clinicals to [facility]. (BEST IBANEZ RN 03/28/2019 13:18) Comment 7: Requested Received Date: 03/18/2019 11:05:00 AM Requested Days: 1 Start Date of Service: 03/16/2019 Authorized Days: 0 End Date of Service: 03/17/2019 Status: Denied (KIM HANNA RN-Utilization Review 03/28/2019 10:17) Comment 8: Uploaded clinicals to [facility] via [employer]. (LALO MESA, RN-Utilization Review 03/18/2019 10:16) BEST IBANEZ RN - 04/05/2019 11:21 EDT documented in this encounter Plan of Treatment Upcoming Encounters Date Type Department Care Team (Late st Contact Info) Description 01/07/2025 1:45 PM EDT Office Visit [facility] [address] [place] [address] Tenzin Lozoya APRN [address] [place] [id number] 04/01/2025 2:00 PM EDT Appointment [address] [place] [address] documented as of this encounter Visit Diagnoses Not on filedocumented in this encounter Care Teams Rug Dyer Helper Relationship Specialty Start Date End Date Js Jack MD [address] [facility] [address] [place] [address] PCP - General General Internal Medicine 02/28/23 documented as of this encounter
--- OUTSIDE RECORDS SUMMARY | 2024-12-07 14:45 | XMS_ITS | Encounter Summary ---
Author Organization [employer] Address [address] [place] [address] Care Team Providers Care Health Program Specialist Name Role Phone Guero Schmitt MD, John Primary Care Provider [phone] Encounter Details Date Type Department Care Team (Late st Contact Info) Description 05/09/2019 Transcribed Document [facility] [place] Family [place] [facility] [place] [address] ProviderFrida MD [address] [place] [id number] Social History Tobacco Use Types Packs/Day Years Used Date Smoking Tobacco: Never Assessed Comments Unknown Sex and Gender Information Value Date Recorded Sex Assigned at Not on file Legal Sex Female 5:43 PM CDT Gender Identity Not on file Sexual Orientation Not on file documented as of this encounter Miscellaneous Notes * Cerner Conversion Note - Frida Morataya MD - 05/09/2019 2:10 PM WEB CONTENT PRODUCER DATE OF DISCHARGE: 03/22/2019 ADMITTING DIAGNOSES: Vaginal vault prolapse, rectocele, stress urinary incontinence, and pelvic pain. IDENTIFICATION: Bianca is a 63-year-old 5, who presented status post hysterectomy, vaginal vault prolapse, and a significant rectocele. She also had hypermobility with stress urinary incontinence and pelvic pain. She was admitted on 03/16 and underwent routine preop evaluation and preparation on that day. Her procedure was robotic laparoscopy with extensive lysis of adhesions, bilateral salpingo-oophorectomy, vaginal uterosacral suspension, retropubic mid urethral sling, and a posterior repair with cystoscopy. Her 1st postoperative day was complicated by the inability to void. Her blood counts were stable. On 2nd postoperative day, she developed epigastric pain and air hunger as well as nausea and some vomiting. She was evaluated in consultation by Internal Medicine and General Surgery. It was felt that there was a possibility of organ perforation. So on that date, she underwent a diagnostic laparoscopy with no findings. She continued to be evaluated by Cardiology as well as Gastroenterology and Internal Medicine. She had slow resolution of symptomatology including epigastric pain, shortness of breath, nausea and vomiting without significant findings. She did resume normal bladder function. She has a normal bowel movement and was comfortable on room air. Laboratory workup remained unremarkable. She was discharged home on 03/22 with ibuprofen and Percocet for pain. Diet and activity instructions were given. She had a followup appointment in 10 days. /[id number] NilsMD BG Harding/MERLIN / BG / MODL /[id number] documented in this encounter Plan of Treatment Upcoming Encounters Date Type Department Care Team (Late st Contact Info) Description 01/07/2025 1:45 PM EDT Office Visit [facility] [address] [facility] [address] [place] [address] Tenzin Lozoya APRN [address] [place] [address] 04/01/2025 2:00 PM EDT Appointment [facility] [address] [facility] [address] [place] [address] documented as of this encounter Visit Diagnoses Not on filedocumented in this encounter Care Teams Health Program Specialist Relationship Specialty Start Date End Date Js Jack MD [address] [place] [address] PCP - General General Internal Medicine 02/28/23 documented as of this encounter
--- OUTSIDE RECORDS SUMMARY | 2024-12-07 14:45 | XMS_ITS | Encounter Summary ---
Author Organization [employer] Address [address] [place] [address] Care Team Providers Care Equipment Service Engineer Name Role Phone Guero Schmitt MD, John Primary Care Provider [phone] Encounter Details Date Type Department Care Team (Late st Contact Info) Description 03/28/2019 Transcribed Document [facility] [place] [place] Medicine [address] [place] [address] ProviderFrida MD [address] [place], [place] [address] Social History Tobacco Use Types Packs/Day Years Used Date Smoking Tobacco: Never Assessed Comments Unknown Sex and Gender Information Value Date Recorded Sex Assigned at Not on file Legal Sex Female 5:43 PM CDT Gender Identity Not on file Sexual Orientation Not on file documented as of this encounter Miscellaneous Notes * Cerner Conversion Note - Frida Morataya MD - 03/28/2019 1:18 PM CDT UM Authorization Entered On: 03/28/2019 13:18 EDT Performed On: 03/28/2019 13:18 EDT by BEST IBANEZ RN Primary Insurance Authorization Authorization and Policy Numbers : Insurance 1 Health Plan: [employer] Policy Number: [id number] Authorization Number: Insurance Primary Name : Nay [facility] [id number] Authorization Status-Primary : Denial - admission Authorized Service Begin Date-Primary : 03/18/2019 EDT Authorization Comments-Primary : Faxed reconsideration clinicals to [facility]. Historical Authorization Comments-Primary : Comment 1: Requested Received Date: 03/18/2019 11:05:00 AM Requested Days: 1 Start Date of Service: 03/16/2019 Authorized Days: 0 End Date of Service: 03/17/2019 Status: Denied (KIM HANNA, ZOHREH-Utilization Review 03/28/2019 10:17) Comment 2: Uploaded clinicals to [facility] via [employer]. (LALO MESA, RN-Utilization Review 03/18/2019 10:16) BEST IBANEZ RN - 03/28/2019 13:18 EDT documented in this encounter Plan of Treatment Upcoming Encounters Date Type Department Care Team (Late st Contact Info) Description 01/07/2025 1:45 PM EDT Office Visit [facility] [address] [place] [address] Tenzin Lozoya APRN [address] [place] [address] 04/01/2025 2:00 PM EDT Appointment [facility] [address] [place] [address] documented as of this encounter Visit Diagnoses Not on filedocumented in this encounter Care Teams Equipment Service Engineer Relationship Specialty Start Date End Date Js Jack MD [address] [facility] [address] [place] [address] PCP - General General Internal Medicine 02/28/23 documented as of this encounter
--- OUTSIDE RECORDS SUMMARY | 2024-12-07 14:45 | XMS_ITS | Encounter Summary ---
Author Organization [employer] Address [address] [place] [address] Care Team Providers Care Rivet Thrower Name Role Phone Guero Schmitt MD, John Primary Care Provider [phone] Encounter Details Date Type Department Care Team (Late st Contact Info) Description 03/17/2019 Transcribed Document [facility] [place] Family Medicine Counts include [address] beds [facility] [place] [address] ProviderFrida MD [address] [place] [id number] Social History Tobacco Use Types Packs/Day Years Used Date Smoking Tobacco: Never Assessed Comments Unknown Sex and Gender Information Value Date Recorded Sex Assigned at Not on file Legal Sex Female 5:43 PM CDT Gender Identity Not on file Sexual Orientation Not on file documented as of this encounter Miscellaneous Notes * Cerner Conversion Note - Frida Morataya MD - 03/17/2019 4:51 PM CDT DATE OF CONSULTATION: 03/17/2019 NEPHROLOGY CONSULTATION CONSULTING PHYSICIAN: Kerry Crisostomo M.D. REASON FOR CONSULT: Hyponatremia. HISTORY OF PRESENT ILLNESS: This is a 63-year-old female with past medical history significant for hypertension, constipation, meningioma, vaginal wall prolapse and rectocele, who underwent a robotic laparoscopic surgery for extensive lysis of adhesions, oophorectomy bilaterally. On her labs today, she was found to have a sodium level around 124. Of note that she had a lab workup done on March 13, at that time her sodium level was 133. Nephrology Service has been consulted for further evaluation and treatment. Patient has been on hydrochlorothiazide for about two years. She denies taking any NSAIDs. No history of kidney disease. No history of kidney stones. She denies taking any antidepressant medicine as well. She has been complaining of lot of nausea. REVIEW OF SYSTEMS: Comprehensive review of 12 systems was done, found to be negative except as noted in HPI. PAST MEDICAL HISTORY: 1. Hypertension. 2. Constipation. 3. Sleeping disorder. SURGICAL HISTORY: Bilateral breast reduction, hysterectomy. ALLERGIES: Patient is allergic to LUNESTA and NICKEL. SOCIAL HISTORY: Denies any smoking history. No history of illicit drug use. Drinks alcohol 2 drinks per day. FAMILY HISTORY: No family history of kidney disease. Positive for CVA in her mother. HOME MEDICATION: She is on; 1. Hydrochlorothiazide. 2. Hydroxyzine. 3. Linzess. 4. Losartan. 5. Melatonin. 6. Metoprolol. PHYSICAL EXAMINATION: VITAL SIGNS: Blood pressure 134/90, temperature 98.4, heart rate 71, oxygen saturation 99% on room air, respiration rate of 16. GENERAL: Patient is alert and oriented x3 in no in mild distress secondary to nausea and some pain. NECK: Supple. No JVD. No carotid bruit. LUNGS: Clear to auscultation bilaterally. CVS: S1, S2 audible with no murmur, gallop, rub. ABDOMEN: Soft. Some tenderness. Surgical site intact. No rebound or rigidity. EXTREMITIES: No pedal edema. No cyanosis. Peripheral pulses palpable. PLATE EMBOSSER: No focal deficit noted grossly. Cranial nerves 2 though 12 intact. PSYCH: Appropriate mood and affect and cooperative. SKIN: Warm, dry, pink, and intact. LABORATORY DATA: Sodium 134, potassium 4.2, chloride 89, bicarb of 27, glucose of 133, BUN of 13, creatinine of 0.65, calcium of 8.5. WBC of 17.5, hemoglobin 11.2, hematocrit 34.8, and platelet count of 272. UA bland. ASSESSMENT AND PLAN: Hyponatremia, acute secondary to hydrochlorothiazide versus release of ADH after surgery, nausea induced. PLAN: 1. Urine and serum osmolality. 2. Urine sodium level. 3. Uric acid level. 4. Fluid restriction 1 L per day. 5. Agree with holding hydrochlorothiazide. 6. Serum sodium levels. Thank you very much for the consult. We will continue to follow this patient along with other physicians. Shayne Braun M.D. Dict: 03/17/2019 16:51:27 Trans: 03/17/2019 22:18:46 CC1: Shayne Braun M.D. documented in this encounter Plan of Treatment Upcoming Encounters Date Type Department Care Team (Late st Contact Info) Description 01/07/2025 1:45 PM EDT Office Visit [facility] [address] [place] [address] Tenzin Lozoya APRN [address] [place] [address] 04/01/2025 2:00 PM EDT Appointment [facility] [address] [facility] [address] [place] [address] documented as of this encounter Visit Diagnoses Not on filedocumented in this encounter Care Teams Rivet Thrower Relationship Specialty Start Date End Date Js Jack MD [address] [facility] [address] [place] [address] PCP - General General Internal Medicine 02/28/23 documented as of this encounter
--- OUTSIDE RECORDS SUMMARY | 2024-12-07 14:45 | XMS_ITS | Encounter Summary ---
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 Name Role Phone Guero Schmitt MD, John Primary Care Provider [phone] Encounter Details Date Type Department Care Team (Late st Contact Info) Description 03/22/2019 Transcribed Document [facility] [place] Family Medicine [address] [place] [address] ProviderFrida MD [address] [place] [id number] Social History Tobacco Use Types Packs/Day Years Used Date Smoking Tobacco: Never Assessed Comments Unknown Sex and Gender Information Value Date Recorded Sex Assigned at Not on file Legal Sex Female 5:43 PM CDT Gender Identity Not on file Sexual Orientation Not on file documented as of this encounter Miscellaneous Notes * Cerner Conversion Note - Frida Morataya MD - 03/22/2019 4:09 PM CDT [place] [id number] BRIGIDO ZAZUETA :1955 Visit Time:03/18/2019 Your Visit Summary Your Care Team Admitting Physician - Key SIMMONS MD-OBG Attending Physician - Key SIMMONS MD-OBG Primary Care Physician - ANGEL LUIS MORA (REF)MD-INT Referring Physician - Key SIMMONS MD-OBG Your Diagnosis Rectocele, Rectocele These Are Your Goals to not feel nauseous anymore - Met Discharge Vitals Temperature 36.8 ??C Heart Rate (Monitored) 80 Respiratory Rate 16 Blood Pressure 147/83 What to do next Follow-Up Appointments Follow Up with Key SIMMONS MD-OBG When In 1 week Where: [address] [place] [id number]- Medications What How Much When Instructions Next Dose estradiol (Climara 0.05 mg/ 24 hours weekly transdermal film, extended release) 1 Patch(es) Topical hydrOXYzine (hydrOXYzine hydrochloride 25 mg oral tablet) 1-2 Tab Oral At Bedtime linaclotide (Linzess 145 mcg oral capsule) 1 Capsule(s) Oral Every Day losartan (losartan 50 mg oral tablet) 1 Tablet(s) Oral Every Day melatonin (Melatonin 5 mg oral tablet) 1 Tablet(s) Oral Once a day (at bedtime) as needed for as needed for insomnia metoprolol (metoprolol succinate 50 mg oral capsule, extended release) 1 Capsule(s) Oral Every Evening Take your medications faithfully. Do NOT skip medication. Do NOT stop taking medications without the direction of a physician. Carry a list of your medications with you at all times, and take this medication list with you to your first follow up visit. Report any side effects. Avoid herbal remedies unless discussed with your physician. As part of your treatment plan, your physician may have prescribed a limited course of a controlled substance. This medication may be given to help people with moderate or severe pain or for other medical conditions, but there are risks involved with treatment. Common side effects may include nausea, constipation, drowsiness, sweating, itching, dry mouth, and rash. More serious side effects may include cognitive and motor impairment, like problems with thinking, concentrating, alertness, and movement (e.g. slowed reflexes), and driving and operating heavy machinery can be dangerous. It is important for you to talk to your physician if you have these side effects or questions. These controlled substances can produce physical dependence and be habit-forming if taken for an extended period of time, which means that the body has gotten used to them and may experience withdrawal symptoms if they are abruptly stopped. Withdrawal symptoms can include runny nose, sweating, goose bumps, diarrhea, abdominal cramping, rapid heartbeat, difficulty sleeping, and nervousness. Please dispose of unused and medications per your retail pharmacy guidance. Allergies Lunesta (Swelling) Nickel (Rash) Percocet 10 (Nausea present) Immunizations This Visit No Immunizations Found Education Materials Anterior and Posterior Colporrhaphy and Sling Procedure, Care After This sheet gives you information about how to care for yourself after your procedure. Your health care provider may also give you more specific instructions. If you have problems or questions, contact your health care provider. What can I expect after the procedure? After the procedure, it is common to have: ??? Pain in the surgical area. ??? Vaginal discharge. You will need to use a sanitary pad during this time. ??? Fatigue. Follow these instructions at home: Incision care ??? Follow instructions from your health care provider about how to take care of your incision. Make sure you: ? Wash your hands with soap and water before touching the incision area. If soap and water are not available, use hand vegetable harvest worker. ? Clean your incision as told by your health care provider. ? Leave stitches (sutures), skin glue, or adhesive strips in place. These skin closures may need to stay in place for 2 weeks or longer. If adhesive strip edges start to loosen and curl up, you may trim the loose edges. Do not remove adhesive strips completely unless your health care provider tells you to do that. ??? Check your incision area every day for signs of infection. Check for: ? Redness, swelling, or pain. ? Fluid or blood. ? Warmth. ? Pus or a bad smell. ??? Check your incision every day to make sure the incision area is not or opening. ??? Do not take baths, swim, or use a hot tub until your health care provider approves. You may shower. ??? Keep the area between your vagina and rectum (perineal area) clean and dry. Make sure you clean the area after each bowel movement and each time you urinate. ??? Ask your health care provider if you can take a sitz bath or sit in a tub of clean, warm water. Activity ??? Do gentle, daily activity as told by your health care provider. You may be told to take short walks every day and go farther each time. Ask your health care provider what activities are safe for you. ??? Limit stair climbing to once or twice a day in the first week, then slowly increase this activity. ??? Do not lift anything that is heavier than 10 lbs. (4.5 kg), or the limit that your health care provider tells you, until he or she says that it is safe. Avoid pushing or pulling motions. ??? Avoid standing for long periods of time. ??? Do not douche, use tampons, or have sex until your health care provider says it is okay. ??? Do not drive or use heavy machinery while taking prescription pain medicine. To prevent constipation ??? To prevent or treat constipation while you are taking prescription pain medicine, your health care provider may recommend that you: ? Take uzjl-okb-lonbjha or prescription medicines. ? Eat foods that are high in fiber, such as fresh fruits and vegetables, whole grains, and beans. ? Drink enough fluid to keep your urine clear or pale yellow. ? Limit foods that are high in fat and processed sugars, such as fried and sweet foods. General instructions ??? You may be instructed to do pelvic floor exercises (kegels) as told by your health care provider. ??? Take ebge-ypd-objjuns and prescription medicines only as told by your health care provider. ??? Keep all follow-up visits as told by your health care provider. This is important. Contact a health care provider if: ??? Medicine does not help your pain. ??? You have frequent or urgent urination, or you are unable to completely empty your bladder. ??? You feel a burning sensation when urinating. ??? You have fluid or blood coming from your incision. ??? You have pus or a bad smell coming from the incision. ??? Your incision feels warm to the touch. ??? You have redness, swelling, or pain around your incision. Get help right away if: ??? You have a fever or chills. ??? Your incision separates or opens. ??? You cannot urinate. ??? You have trouble breathing. Summary ??? After the procedure, it is common to have pain, fatigue, and discharge from the vagina. ??? Keep the area between your vagina and rectum (perineal area) clean and dry. Make sure you clean the area after each bowel movement and each time you urinate. ??? Follow instructions from your health care provider on any activity restrictions after the procedure. This information is not intended to replace advice given to you by your health care provider. Make sure you discuss any questions you have with your health care provider. Document Released: 01/11/2005 Document Revised: 05/30/2017 Document Reviewed: 05/30/2017 [employer] Interactive Patient Education ?? 2019 [employer]. ondansetron (oral) (on SUSAN se kelsy) Krystin Mcclelland [employer] What is the most important information I should know about ondansetron? You should not use ondansetron if you are also using apomorphine (Apokyn). What is ondansetron? Ondansetron blocks the actions of chemicals in the body that can trigger nausea and vomiting. Ondansetron is used to prevent nausea and vomiting that may be caused by surgery, cancer chemotherapy, or radiation treatment. Ondansetron may be used for purposes not listed in this medication guide. What should I discuss with my health care provider before taking ondansetron? You should not use ondansetron if: ?? you are also using apomorphine (Apokyn); or ?? you are allergic to ondansetron or similar medicines (dolasetron, granisetron, palonosetron). To make sure ondansetron is safe for you, tell your doctor if you have: ?? liver disease; ?? an electrolyte imbalance (such as low levels of potassium or magnesium in your blood); ?? congestive heart failure, slow heartbeats; ?? a personal or family history of long QT syndrome; or ?? a blockage in your digestive tract (stomach or intestines). Ondansetron is not expected to harm an unborn baby. Tell your doctor if you are . It is not known whether ondansetron passes into breast milk or if it could harm a nursing baby. Tell your doctor if you are breast-feeding a baby. Ondansetron is not approved for use by anyone younger than 4 years old. Ondansetron orally disintegrating tablets may contain phenylalanine. Tell your doctor if you have phenylketonuria (PKU). How should I take ondansetron? Follow all directions on your prescription label. Do not take this medicine in larger or smaller amounts or for longer than recommended. Ondansetron can be taken with or without food. The first dose of ondansetron is usually taken before the start of your surgery, chemotherapy, or radiation treatment. Follow your doctor's dosing instructions very carefully. Take the ondansetron regular tablet with a full glass of water. To take the orally disintegrating tablet (Zofran ODT): ?? Keep the tablet in its blister pack until you are ready to take it. Open the package and peel back the foil. Do not push a tablet through the foil or you may damage the tablet. ?? Use dry hands to remove the tablet and place it in your mouth. ?? Do not swallow the tablet whole. Allow it to dissolve in your mouth without chewing. ?? Swallow several times as the tablet dissolves. To use ondansetron oral soluble film (strip) (Zuplenz): ?? Keep the strip in the foil pouch until you are ready to use the medicine. ?? Using dry hands, remove the strip and place it on your tongue. It will begin to dissolve right away. ?? Do not swallow the strip whole. Allow it to dissolve in your mouth without chewing. ?? Swallow several times after the strip dissolves. If desired, you may drink liquid to help swallow the dissolved strip. ?? Wash your hands after using Zuplenz. Measure liquid medicine with the dosing syringe provided, or with a special dose-measuring spoon or medicine cup. If you do not have a dose-measuring device, ask your pharmacist for one. Store at room temperature away from moisture, heat, and light. Store liquid medicine in an upright position. What happens if I miss a dose? Take the missed dose as soon as you remember. Skip the missed dose if it is almost time for your next scheduled dose. Do not take extra medicine to make up the missed dose. What happens if I overdose? Seek emergency medical attention or call the Poison Help line at . Overdose symptoms may include sudden loss of vision, severe constipation, feeling light-headed, or fainting. What should I avoid while taking ondansetron? Ondansetron may impair your thinking or reactions. Be careful if you drive or do anything that requires you to be alert. What are the possible side effects of ondansetron? Get emergency medical help if you have signs of an allergic reaction: rash, hives; fever, chills, difficult breathing; swelling of your face, lips, tongue, or throat. Call your doctor at once if you have: ?? severe constipation, stomach pain, or bloating; ?? headache with chest pain and severe dizziness, fainting, fast or pounding heartbeats; ?? fast or pounding heartbeats; ?? jaundice (yellowing of the skin or eyes); ?? blurred vision or temporary vision loss (lasting from only a few minutes to several hours); ?? high levels of serotonin in the body--agitation, hallucinations, fever, fast heart rate, overactive reflexes, nausea, vomiting, diarrhea, loss of coordination, fainting. Common side effects may include: ?? diarrhea or constipation; ?? headache; ?? drowsiness; or ?? tired feeling. This is not a complete list of side effects and others may occur. Call your doctor for medical advice about side effects. You may report side effects to FDA at 9-502-ERW-3395. What other drugs will affect ondansetron? Ondansetron can cause a serious heart problem, especially if you use certain medicines at the same time, including antibiotics, antidepressants, heart rhythm medicine, antipsychotic medicines, and medicines to treat cancer, malaria, HIV or AIDS. Tell your doctor about all medicines you use, and those you start or stop using during your treatment with ondansetron. Taking ondansetron while you are using certain other medicines can cause high levels of serotonin to build up in your body, a condition called 'serotonin syndrome,' which can be fatal. Tell your doctor if you also use: ?? medicine to treat depression; ?? medicine to treat a psychiatric disorder; ?? a narcotic (opioid) medication; or ?? medicine to prevent nausea and vomiting. This list is not complete and many other drugs can interact with ondansetron. This includes prescription and qdnw-jxw-oafugve medicines, vitamins, and herbal products. Give a list of all your medicines to any healthcare provider who treats you. Where can I get more information? Your pharmacist can provide more information about ondansetron. Remember, keep this and all other medicines out of the reach of children, never share your medicines with others, and use this medication only for the indication prescribed. Every effort has been made to ensure that the information provided by [employer]') is accurate, up-to-date, and complete, but no guarantee is made to that effect. Drug information contained herein may be time sensitive. [employer] information has been compiled for use by healthcare practitioners and consumers in the [place] and therefore [employer] does not warrant that uses outside of the [place] are appropriate, unless specifically indicated otherwise. [employer] drug information does not endorse drugs, diagnose patients or recommend therapy. [employer] drug information is an informational resource designed to assist licensed healthcare practitioners in caring for their patients and/or to serve consumers viewing this service as a supplement to, and not a substitute for, the expertise, skill, knowledge and judgment of healthcare practitioners. The absence of a warning for a given drug or drug combination in no way should be construed to indicate that the drug or drug combination is safe, effective or appropriate for any given patient. [employer] does not assume any responsibility for any aspect of healthcare administered with the aid of information [employer] provides. The information contained herein is not intended to cover all possible uses, directions, precautions, warnings, drug interactions, allergic reactions, or adverse effects. If you have questions about the drugs you are taking, check with your doctor, nurse or pharmacist. Copyright 9349-2595 [employer] Version: 13.01. Revision Date: 04/02/2016. ibuprofen (EYE bue PROE fen) Advil, Genpril, IBU, Midol IB, Motrin IB, Proprinal, Smart Sense Children's Ibuprofen What is the most important information I should know about ibuprofen? Ibuprofen can increase your risk of fatal heart attack or stroke, especially if you use it shelter or take high doses, or if you have heart disease. Do not use this medicine just before or after heart bypass surgery (coronary artery bypass graft, or CABG). Ibuprofen may also cause stomach or intestinal bleeding, which can be fatal. These conditions can occur without warning while you are using ibuprofen, especially in older adults. What is ibuprofen? Ibuprofen is a nonsteroidal anti-inflammatory drug (NSAID). Ibuprofen works by reducing hormones that cause inflammation and pain in the body. Ibuprofen is used to reduce fever and treat pain or inflammation caused by many conditions such as headache, toothache, back pain, arthritis, menstrual cramps, or minor injury. This medicine is used in adults and children who are at least 6 months old. Ibuprofen may also be used for purposes not listed in this medication guide. What should I discuss with my healthcare provider before taking ibuprofen? Ibuprofen can increase your risk of fatal heart attack or stroke, especially if you use it intermediate card tender or take high doses, or if you have heart disease. Even people without heart disease or risk factors could have a stroke or heart attack while taking this medicine. Do not use this medicine just before or after heart bypass surgery (coronary artery bypass graft, or CABG). Ibuprofen may also cause stomach or intestinal bleeding, which can be fatal. These conditions can occur without warning while you are using ibuprofen, especially in older adults. You should not use ibuprofen if you are allergic to it, or if you have ever had an asthma attack or severe allergic reaction after taking aspirin or an NSAID. Ask a doctor or pharmacist if it is safe for you to take this medicine if you have: ?? heart disease, high blood pressure, high cholesterol, diabetes, or if you smoke; ?? a history of heart attack, stroke, or blood clot; ?? a history of stomach ulcers or bleeding; ?? asthma; ?? liver or kidney disease; ?? fluid retention; or ?? a connective tissue disease such as Marfan syndrome, Sjogren's syndrome, or lupus. Taking ibuprofen during the last 3 months of may harm the unborn baby. Do not use this medicine without a doctor's advice if you are . It is not known whether ibuprofen passes into breast milk or if it could affect a nursing baby. Ask a doctor before using this medicine if you are . Do not give ibuprofen to a child younger than 2 years old without the advice of a doctor. How should I take ibuprofen? Use exactly as directed on the label, or as prescribed by your doctor. Do not use in larger amounts or for longer than recommended. Use the lowest dose that is effective in treating your condition. Do not take more than your recommended dose. An ibuprofen overdose can damage your stomach or intestines. The maximum amount of ibuprofen for adults is 800 milligrams per dose or 3200 mg per day (4 maximum doses). Use only the smallest amount of ibuprofen needed to get relief from your pain, swelling, or fever. A child's dose of ibuprofen is based on the age and weight of the child. Carefully follow the dosing instructions provided with children's ibuprofen for the age and weight of your child. Ask a doctor or pharmacist if you have questions. Take ibuprofen with food or milk to lessen stomach upset. Shake the oral suspension (liquid) well just before you measure a dose. Measure liquid medicine with the dosing syringe provided, or with a special dose-measuring spoon or medicine cup. If you do not have a dose-measuring device, ask your pharmacist for one. The ibuprofen chewable tablet must be chewed before you swallow it. If you use this medicine long-term, you may need frequent medical tests. Store at room temperature away from moisture and heat. Do not allow the liquid medicine to freeze. Read all patient information, medication guides, and instruction sheets provided to you. Ask your doctor or pharmacist if you have any questions. What happens if I miss a dose? Since ibuprofen is used when needed, you may not be on a dosing schedule. If you are on a schedule, use the missed dose as soon as you remember. Skip the missed dose if it is almost time for your next scheduled dose. Do not use extra medicine to make up the missed dose. What happens if I overdose? Seek emergency medical attention or call the Poison Help line at . Overdose symptoms may include nausea, vomiting, stomach pain, drowsiness, black or bloody stools, coughing up blood, shallow breathing, fainting, or coma. What should I avoid while taking ibuprofen? Avoid drinking alcohol. It may increase your risk of stomach bleeding. Avoid taking aspirin while you are taking ibuprofen. Avoid taking ibuprofen if you are taking aspirin to prevent stroke or heart attack. Ibuprofen can make aspirin less effective in protecting your heart and blood vessels. If you must use both medications, take the ibuprofen at least 8 hours before or 30 minutes after you take the aspirin (non-enteric coated form). Ask a doctor or pharmacist before using any cold, allergy, or pain medicine. Many medicines available over the counter contain aspirin or other medicines similar to ibuprofen. Taking certain products together can cause you to get too much of this type of medication. Check the label to see if a medicine contains aspirin, ibuprofen, ketoprofen, or naproxen. What are the possible side effects of ibuprofen? Get emergency medical help if you have signs of an allergic reaction: sneezing, runny or stuffy nose; wheezing or trouble breathing; hives; swelling of your face, lips, tongue, or throat. Get emergency medical help if you have signs of a heart attack or stroke: chest pain spreading to your jaw or shoulder, sudden numbness or weakness on one side of the body, slurred speech, leg swelling, feeling short of breath. Stop using ibuprofen and call your doctor at once if you have: ?? changes in your vision; ?? shortness of breath (even with mild exertion); ?? swelling or rapid weight gain; ?? the first sign of any skin rash, no matter how mild; ?? signs of stomach bleeding--bloody or tarry stools, coughing up blood or vomit that looks like coffee grounds; ?? liver problems--nausea, upper stomach pain, itching, tired feeling, flu-like symptoms, loss of appetite, dark urine, saima-colored stools, jaundice (yellowing of the skin or eyes); ?? kidney problems--little or no urinating, painful or difficult urination, swelling in your feet or ankles, feeling tired or short of breath; ?? low red blood cells (anemia)--pale skin, feeling light-headed or short of breath, rapid heart rate, trouble concentrating; or ?? severe skin reaction--fever, sore throat, swelling in your face or tongue, burning in your eyes, skin pain followed by a red or purple skin rash that spreads (especially in the face or upper body) and causes blistering and peeling. Common side effects may include: ?? nausea, vomiting, gas; ?? bleeding; or ?? dizziness, headache. This is not a complete list of side effects and others may occur. Call your doctor for medical advice about side effects. You may report side effects to FDA at 1-042-SFE-7477. What other drugs will affect ibuprofen? Ask your doctor before using ibuprofen if you take an antidepressant such as citalopram, escitalopram, fluoxetine (Prozac), fluvoxamine, paroxetine, sertraline (Zoloft), trazodone, or vilazodone. Taking any of these medicines with an NSAID may cause you to bruise or bleed easily. Ask a doctor or pharmacist if it is safe for you to use ibuprofen if you are also using any of the following drugs: ?? cyclosporine; ?? pemetrexed; ?? lithium; ?? methotrexate; ?? a blood thinner (warfarin, Coumadin, Jantoven); ?? heart or blood pressure medication, including a diuretic or 'water pill'; or ?? steroid medicine (such as prednisone). This list is not complete. Other drugs may interact with ibuprofen, including prescription and dxma-xwp-vjgllvn medicines, vitamins, and herbal products. Not all possible interactions are listed in this medication guide. Where can I get more information? Your pharmacist can provide more information about ibuprofen. Remember, keep this and all other medicines out of the reach of children, never share your medicines with others, and use this medication only for the indication prescribed. Every effort has been made to ensure that the information provided by [employer]. ('[employer]') is accurate, up-to-date, and complete, but no guarantee is made to that effect. Drug information contained herein may be time sensitive. [employer] information has been compiled for use by healthcare practitioners and consumers in the [place] and therefore [employer] does not warrant that uses outside of the [place] are appropriate, unless specifically indicated otherwise. [employer] drug information does not endorse drugs, diagnose patients or recommend therapy. [employer] drug information is an informational resource designed to assist licensed healthcare practitioners in caring for their patients and/or to serve consumers viewing this service as a supplement to, and not a substitute for, the expertise, skill, knowledge and judgment of healthcare practitioners. The absence of a warning for a given drug or drug combination in no way should be construed to indicate that the drug or drug combination is safe, effective or appropriate for any given patient. [employer] does not assume any responsibility for any aspect of healthcare administered with the aid of information [employer] provides. The information contained herein is not intended to cover all possible uses, directions, precautions, warnings, drug interactions, allergic reactions, or adverse effects. If you have questions about the drugs you are taking, check with your doctor, nurse or pharmacist. Copyright 6860-9025 [employer]. Version: 19.01. Revision Date: 01/23/2019. acetaminophen and oxycodone (a SEET a MIN oh fen and OX i KOE done) Endocet 10/325, Endocet 2.5/325, Endocet 5/325, Endocet 7.5/325, Nalocet, Percocet 10/325, Percocet 2.5/325, Percocet 5/325, Percocet 7.5/325, Primalev, Primlev, Roxicet, Xartemis XR What is the most important information I should know about acetaminophen and oxycodone? MISUSE OF OPIOID MEDICINE CAN CAUSE ADDICTION, OVERDOSE, OR . Keep the medication in a place where others cannot get to it. An overdose of acetaminophen can damage your liver or cause . Call your doctor at once if you have pain in your upper stomach, loss of appetite, dark urine, or jaundice (yellowing of your skin or eyes). Taking opioid medicine during may cause life-threatening withdrawal symptoms in the . Fatal side effects can occur if you use opioid medicine with alcohol, or with other drugs that cause drowsiness or slow your breathing. Stop taking this medicine and call your doctor right away if you have skin redness or a rash that spreads and causes blistering and peeling. What is acetaminophen and oxycodone? Oxycodone is an opioid pain medication, sometimes called a narcotic. Acetaminophen is a less potent pain reliever that increases the effects of oxycodone. Acetaminophen and oxycodone is a combination medicine used to relieve moderate to severe pain. Acetaminophen and oxycodone may also be used for purposes not listed in this medication guide. What should I discuss with my healthcare provider before taking acetaminophen and oxycodone? You should not use this medicine if you are allergic to acetaminophen or oxycodone, or if you have: ?? severe asthma or breathing problems; or ?? a blockage in your stomach or intestines. Tell your doctor if you have ever had: ?? liver disease; ?? a drug or alcohol addiction; ?? kidney disease; ?? a head injury or seizures; ?? urination problems; or ?? problems with your thyroid, pancreas, or gallbladder. If you use opioid medicine while you are , your baby could become dependent on the drug. This can cause life-threatening withdrawal symptoms in the baby after it is born. Babies born dependent on opioids may need medical treatment for several weeks. Do not breast-feed. This medicine can pass into breast milk and cause drowsiness, breathing problems, or in a nursing baby. How should I take acetaminophen and oxycodone? Follow all directions on your prescription label. Never take this medicine in larger amounts, or for longer than prescribed. An overdose can damage your liver or cause . Tell your doctor if the medicine seems to stop working as well in relieving your pain. Never share this medicine with another person, especially someone with a history of drug abuse or addiction. MISUSE CAN CAUSE ADDICTION, OVERDOSE, OR . Keep the medicine in a place where others cannot get to it. Selling or giving away acetaminophen and oxycodone is against the law. Measure liquid medicine carefully. Use the dosing syringe provided, or use a medicine dose-measuring device (not a kitchen spoon). If you need surgery or medical tests, tell the doctor ahead of time that you are using this medicine. You should not stop using this medicine suddenly. Follow your doctor's instructions about tapering your dose. Store at room temperature away from moisture and heat. Keep track of your medicine. You should be aware if anyone is using it improperly or without a prescription. Do not keep leftover opioid medication. Just one dose can cause in someone using this medicine accidentally or improperly. Ask your pharmacist where to locate a drug take-back disposal program. If there is no take-back program, flush the unused medicine down the toilet. What happens if I miss a dose? Since this medicine is used for pain, you are not likely to miss a dose. Skip any missed dose if it is almost time for your next dose. Do not use two doses at one time. What happens if I overdose? Seek emergency medical attention or call the Poison Help line at . An overdose of acetaminophen and oxycodone can be fatal. The first signs of an acetaminophen overdose include loss of appetite, nausea, vomiting, stomach pain, sweating, and confusion or weakness. Later symptoms may include pain in your upper stomach, dark urine, and yellowing of your skin or the whites of your eyes. Overdose can also cause severe muscle weakness, pinpoint pupils, very slow breathing, extreme drowsiness, or coma. What should I avoid while taking acetaminophen and oxycodone? Avoid driving or operating machinery until you know how this medicine will affect you. Dizziness or drowsiness can cause falls, accidents, or severe injuries. Do not drink alcohol. Dangerous side effects or could occur. Ask a doctor or pharmacist before using any other medicine that may contain acetaminophen (sometimes abbreviated as APAP). Taking certain medications together can lead to a fatal overdose. What are the possible side effects of acetaminophen and oxycodone? Get emergency medical help if you have signs of an allergic reaction: hives; difficulty breathing; swelling of your face, lips, tongue, or throat. Opioid medicine can slow or stop your breathing, and may occur. A person caring for you should seek emergency medical attention if you have slow breathing with long pauses, blue colored lips, or if you are hard to wake up. In rare cases, acetaminophen may cause a severe skin reaction that can be fatal. This could occur even if you have taken acetaminophen in the past and had no reaction. Stop taking this medicine and call your doctor right away if you have skin redness or a rash that spreads and causes blistering and peeling. Call your doctor at once if you have: ?? noisy breathing, sighing, shallow breathing; ?? a light-headed feeling, like you might pass out; ?? weakness, tiredness, fever, unusual bruising or bleeding; ?? confusion, unusual thoughts or behavior; ?? problems with urination; ?? liver problems--nausea, upper stomach pain, tiredness, loss of appetite, dark urine, saima-colored stools, jaundice (yellowing of the skin or eyes); or ?? low cortisol levels-- nausea, vomiting, loss of appetite, dizziness, worsening tiredness or weakness. Seek medical attention right away if you have symptoms of serotonin syndrome, such as: agitation, hallucinations, fever, sweating, shivering, fast heart rate, muscle stiffness, twitching, loss of coordination, nausea, vomiting, or diarrhea. Serious side effects may be more likely in older adults and those who are overweight, malnourished, or debilitated. Long-term use of opioid medication may affect fertility (ability to have children) in men or women. It is not known whether opioid effects on fertility are permanent. Common side effects include: ?? dizziness, drowsiness, feeling tired; ?? feelings of extreme happiness or sadness; ?? nausea, vomiting, stomach pain; ?? constipation; or ?? headache. This is not a complete list of side effects and others may occur. Call your doctor for medical advice about side effects. You may report side effects to FDA at 6-488-BWS-0408. What other drugs will affect acetaminophen and oxycodone? You may have breathing problems or withdrawal symptoms if you start or stop taking certain other medicines. Tell your doctor if you also use an antibiotic, antifungal medication, heart or blood pressure medication, seizure medication, or medicine to treat HIV or hepatitis C. Opioid medication can interact with many other drugs and cause dangerous side effects or . Be sure your doctor knows if you also use: ?? cold or allergy medicines, bronchodilator asthma/COPD medication, or a diuretic ('water pill'); ?? medicines for motion sickness, irritable bowel syndrome, or overactive bladder; ?? other narcotic medications--opioid pain medicine or prescription cough medicine; ?? a sedative like Valium--diazepam, alprazolam, lorazepam, Xanax, Klonopin, Versed, and others; ?? drugs that make you sleepy or slow your breathing--a sleeping pill, muscle relaxer, medicine to treat mood disorders or mental illness; ?? drugs that affect serotonin levels in your body--a stimulant, or medicine for depression, Parkinson's disease, migraine headaches, serious infections, or nausea and vomiting. This list is not complete. Other drugs may affect acetaminophen and oxycodone, including prescription and ckci-wmb-jrbpknf medicines, vitamins, and herbal products. Not all possible interactions are listed here. Where can I get more information? Your doctor or pharmacist can provide more information about acetaminophen and oxycodone. Remember, keep this and all other medicines out of the reach of children, never share your medicines with others, and use this medication only for the indication prescribed. Every effort has been made to ensure that the information provided by [employer] ('[employer]') is accurate, up-to-date, and complete, but no guarantee is made to that effect. Drug information contained herein may be time sensitive. [employer] information has been compiled for use by healthcare practitioners and consumers in the [place] and therefore [employer] does not warrant that uses outside of the [place] are appropriate, unless specifically indicated otherwise. [employer] drug information does not endorse drugs, diagnose patients or recommend therapy. [employer] drug information is an informational resource designed to assist licensed healthcare practitioners in caring for their patients and/or to serve consumers viewing this service as a supplement to, and not a substitute for, the expertise, skill, knowledge and judgment of healthcare practitioners. The absence of a warning for a given drug or drug combination in no way should be construed to indicate that the drug or drug combination is safe, effective or appropriate for any given patient. [facility] does not assume any responsibility for any aspect of healthcare administered with the aid of information [employer] provides. The information contained herein is not intended to cover all possible uses, directions, precautions, warnings, drug interactions, allergic reactions, or adverse effects. If you have questions about the drugs you are taking, check with your doctor, nurse or pharmacist. Copyright [id number] [employer]. Version: 18.02. Revision Date: 05/10/2018. Emergency Awareness and Preventative Care STROKE is an EMERGENCY Every Minute Counts Act FAST and Check for these signs: FACE Does the face look uneven? ARM Does one arm drift down? SPEECH Does their speech sound strange? TIME Call at any sign of stroke Stroke Risk Factors Atrial Fibrillation (irregular heartbeat) Diabetes Family history of stroke Heart Disease Heavy alcohol use High Blood Pressure High Cholesterol Physical inactivity and obesity Smoking Cigarette Smoking The facts are clear, cigarette smoking will shorten your life. Smoking can cause many illnesses along the way. As a healthcare provider, we recommend that you stop smoking. Assistance with quitting is available by contacting 5-624-ZGLF-NOW. This is a free resource providing counseling, support, and referral. Or you may contact your personal physician. National Suicide Prevention Lifeline: The National Suicide Prevention Lifeline is a national network of local crisis centers that provides free and confidential emotional support to people in suicidal crisis or emotional distress 24 hours a day, 7 days a week. Don't Wait! Stop a Heart Attack Before it Starts What is a heart attack? A heart attack is damage or to a part of the heart from severely decreased or lack of blood flow to the heart. Over time, arteries can become narrow from the buildup of fat and cholesterol, which is called plaque. The plaque can rupture causing a blood clot to form. When the blood clot forms, the artery can become severely narrowed or completely blocked, causing a heart attack. Heart attack is the leading cause of in the [place]. 85% of muscle damage occurs within the first 2 hours. Delay in the recognition of heart attack symptoms increases the chances of . Know the early symptoms of a heart attack: Nausea Feeling of fullness in chest Jaw Pain Pain that travels down one or both arms Fatigue/being tired Anxiety Back Pain Chest pressure, squeezing, or discomfort Shortness of breath Sweating, or a cold sweat Feeling of impending doom There are unusual signs of a heart attack, too! Women, the elderly, and diabetics may present with atypical symptoms: Fainting/dizziness Weakness Confusion Risk Factors for a Heart Attack Some heart disease risk factors, such as age and family history, cannot be changed. Others, like smoking and lack of exercise, can be changed. Smoking High Cholesterol High Blood Pressure Family History Obesity Age Gender (Males are at higher risk) Lack of Exercise Diabetes Diet Stress Excessive Alcohol Intake If you or someone you know is experiencing the signs and symptoms of a heart attack, DON???T DELAY. Call immediately and seek help. If someone collapses, perform CPR! Do not attempt to drive if you are having symptoms of heart attack. Hands-Only CPR Why Hands-Only CPR? Hands-Only CPR has been shown to be as effective as conventional CPR for cardiac arrests that occur outside of a hospital. Survival depends on immediately receiving CPR from someone nearby. How do you perform Hands-Only CPR? There are two easy steps: Call if you see a teen or adult collapse Push hard and fast in the center of the chest at a beat of 100 beats per minute. Save a life! 4 WAYS TO GET AHEAD OF SEPSIS SEPSIS is a MEDICAL EMERGENCY. Time matters! Infections put you and your family at risk for a life-threatening condition called sepsis. Sepsis is the body's extreme response to an infection. It is life-threatening, and without timely treatment, sepsis can rapidly lead to tissue damage, organ failure, and . Sepsis happens when an infection you already have-in your skin, lungs, urinary tract or somewhere else-triggers a chain reaction throughout your body. 1 PREVENT INFECTIONS Take good care of chronic conditions. Talk to your doctor about getting the recommended vaccines. 2 PRACTICE GOOD HYGIENE Wash your hands frequently. Keep cuts or open sores clean and covered until they are healed. 3 KNOW THE SYMPTOMS Confusion or disorientation Shortness of breath High heart rate Fever, shivering, or feeling very cold Extreme pain or discomfort Clammy or sweaty skin 4 ACT FAST Get medical care IMMEDIATELY if you suspect sepsis or if you have an infection that is not getting better or is getting worse. To learn more about sepsis and how to prevent infections, visit www.cdc.gov/sepsis. Test Results Laboratory or Other Results This Visit (last charted value for your 03/18/2019 visit) Hematology 03/22/2019 2:57 AM WBC: 10.2 K/uL -- Normal range between ( 3.9 and 10.0 ) RBC: 3.89 Million/uL -- Normal range between ( 3.93 and 5.22 ) Hct: 32.8 % -- Normal range between ( 34.1 and 44.9 ) Hgb: 10.7 Gram/dL -- Normal range between ( 11.2 and 15.7 ) Platelet Count: 337 K/uL -- Normal range between ( 163 and 369 ) MCH: 27.5 pg -- Normal range between ( 25.6 and 32.2 ) MCHC: 32.6 Gram/dL -- Normal range between ( 32.3 and 36.5 ) MCV: 84.3 fL -- Normal range between ( 79.0 and 94.8 ) Slide Review: No RDW: 13.0 % -- Normal range between ( 11.6 and 14.4 ) MPV: 8.9 fL -- Normal range between ( 9.4 and 12.4 ) 03/19/2019 3:38 AM Eos %: 0.0 % -- Normal range between ( 1.0 and 7.0 ) [place] #: 0.91 K/uL -- Normal range between ( 0.24 and 0.82 ) Eos #: 0.00 K/uL -- Normal range between ( 0.04 and 0.54 ) [place] %: 4.9 % -- Normal range between ( 4.7 and 12.5 ) Baso %: 0.1 % -- Normal range between ( 0.0 and 1.0 ) Baso #: 0.02 K/uL -- Normal range between ( 0.01 and 0.08 ) Neut %: 92.8 % -- Normal range between ( 34.0 and 71.0 ) Neut #: 17.13 K/uL -- Normal range between ( 1.56 and 6.13 ) Lymph %: 1.5 % -- Normal range between ( 19.3 and 53.0 ) Lymph #: 0.28 K/uL -- Normal range between ( 1.18 and 3.74 ) IG#: 0 x10(3)/uL IG%: 1 % -- Normal range between ( 0 and 1 ) Urinalysis 03/19/2019 10:57 PM Ur RBC: 10-20 /HPF Urine Nitrite: Negative Urine Leukocyte Esterase: Small Ur Epithelial Cells: None Seen Urine Appearance: Clear Urine Glucose Dipstick: Negative Urine Blood Dipstick: Moderate Urine Urobilinogen Dipstick: 0.2 EU/dL -- Normal range between ( 0.2 and 1.0 ) Urine Protein Dipstick: Negative Ur Bacteria: Trace Ur Squamous Epithelial Cells: 0-2 /HPF Urine Color: Yellow Ur Transitional Epi Cells: 0-2 Ur WBC: 2-5 /HPF Urine Ketones Dipstick: Trace Urine pH Dipstick: 5.5 -- Normal range between ( 6.0 and 8.0 ) Urine Bilirubin Dipstick: Negative Urine Specific [place]: 1.014 -- Normal range between ( 1.005 and 1.030 ) Urine Type.: U Cath 03/13/2019 1:14 PM Urine Type: U CleanCatch Microbiology 03/19/2019 10:57 PM Urine Culture: See Result Urine Chemistry 03/19/2019 10:57 PM Osmolality Urine: 353 mOsm/kg -- Normal range between ( 250 and 900 ) Sodium Ur [place]: 64 mMole/Liter General Chemistry 03/22/2019 10:54 AM Sodium Level: 128 mmol/L -- Normal range between ( 136 and 146 ) 03/22/2019 2:57 AM Creatinine Level: 0.60 mg/dL -- Normal range between ( 0.55 and 1.02 ) Potassium Level: 3.9 mmol/L -- Normal range between ( 3.5 and 5.1 ) Chloride Level: 89 mmol/L -- Normal range between ( 102 and 112 ) Carbon Dioxide Level: 29 mmol/L -- Normal range between ( 21 and 32 ) Anion Gap: 16 -- Normal range between ( 9 and 20 ) Bun/Creatinine: 25.0 -- Normal range between ( 8.0 and 20.0 ) Calcium Level: 8.3 mg/dL -- Normal range between ( 8.5 and 10.1 ) eGFR : >60 mL/min/1.73m2 eGFR NonAfrican: >60 mL/min/1.73m2 Glucose Level: 103 mg/dL -- Normal range between ( 74 and 106 ) Blood Urea Nitrogen: 15 mg/dL -- Normal range between ( 7 and 22 ) 03/20/2019 8:41 AM Magnesium Level: 2.0 mg/dL -- Normal range between ( 1.5 and 2.4 ) 03/19/2019 11:24 AM Osmolality Serum: 263 mOsm/kg -- Normal range between ( 280 and 300 ) 03/19/2019 3:38 AM Bilirubin Total: 0.7 mg/dL -- Normal range between ( 0.2 and 1.3 ) A/G Ratio: 1.0 -- Normal range between ( 1.1 and 2.5 ) ALT: 28 Units/Liter -- Normal range between ( 12 and 78 ) AST: 33 Units/Liter -- Normal range between ( 5 and 37 ) Globulin: 3.4 Gram/dL -- Normal range between ( 1.5 and 4.5 ) Alk Phos: 63 Units/Liter -- Normal range between ( 27 and 136 ) Lactic Acid Level: 2.0 mmol/L -- Normal range between ( 0.4 and 2.0 ) Protein Total: 6.8 Gram/dL -- Normal range between ( 6.4 and 8.2 ) Albumin Level: 3.4 Gram/dL -- Normal range between ( 3.4 and 5.0 ) 03/18/2019 9:30 AM Lipase Level: 97 Units/Liter -- Normal range between ( 73 and 393 ) 03/17/2019 3:30 PM Uric Acid: 2.2 mg/dL -- Normal range between ( 2.6 and 6.0 ) Cardiac Specific Markers 03/21/2019 3:24 AM ProBNP: 88481 pg/mL -- Normal range between ( 0 and 125 ) 03/19/2019 3:38 AM Troponin I Ultra: 0.923 ng/mL -- Normal range between ( 0.015 and 0.045 ) 03/18/2019 3:54 AM CKMB: CKMB CK MB: 4.20 ng/mL -- Normal range between ( 0.50 and 3.60 ) 03/17/2019 5:00 PM CK: 129 Units/Liter -- Normal range between ( 26 and 192 ) Endocrinology 03/17/2019 3:30 PM TSH: 0.961 mcInt Units/mL -- Normal range between ( 0.358 and 3.740 ) 03/17/2019 12:18 PM Procalcitonin: 0.07 ng/mL -- Normal range between ( 0.00 and 0.05 ) Computed Tomography 03/18/2019 3:[address] Abdomen Pelvis WO: CT Abdomen Pelvis WO CTA Chest PE Protocol: CTA Chest PE Protocol Diagnostic Radiology 03/20/2019 5:49 PM CR Abdomen 1 Vw Portable: CR Abdomen 1 Vw Portable CR Chest 1 Vw Portable: CR Chest 1 Vw Portable Echo 03/18/2019 11:02 AM EC Echo Complete: EC Echo Complete Patient Name:BRIGIDO ZAZUETA I have received and understand this information and was given the opportunity to ask questions. 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
--- OUTSIDE RECORDS SUMMARY | 2024-12-07 14:45 | XMS_ITS | Encounter Summary ---
Author Organization [employer] Address [address] [place] [address] Care Team Providers Care Acoustical Material Worker Name Role Phone Guero Schmitt MD, John Primary Care Provider [phone] Encounter Details Date Type Department Care Team (Late st Contact Info) Description 03/30/2019 Transcribed Document [facility] Family Medicine [address] [place] [address] ProviderFrida MD [address] [place] [id number] Social History Tobacco Use Types Packs/Day Years Used Date Smoking Tobacco: Never Assessed Comments Unknown Sex and Gender Information Value Date Recorded Sex Assigned at Not on file Legal Sex Female 5:43 PM CDT Gender Identity Not on file Sexual Orientation Not on file documented as of this encounter Miscellaneous Notes * Cerner Conversion Note - Frida Morataya MD - 03/30/2019 11:03 AM CDT UM Authorization Entered On: 03/30/2019 11:04 EDT Performed On: 03/30/2019 11:03 EDT by BEST IBANEZ RN Primary Insurance Authorization Authorization and Policy Numbers : Insurance 1 Health Plan: [employer] Policy Number: [id number] Authorization Number: Insurance Primary Name : Nay [employer] [id number] Authorization Status-Primary : Denial - admission Authorized Service Begin Date-Primary : 03/18/2019 EDT Authorization Comments-Primary : 03/28/[address] Crisostomo office for P2P Historical Authorization Comments-Primary : Comment 1: Faxed reconsideration clinicals to [facility]. (BEST IBANEZ RN 03/28/2019 13:18) Comment 2: Requested Received Date: 03/18/2019 11:05:00 AM Requested Days: 1 Start Date of Service: 03/16/2019 Authorized Days: 0 End Date of Service: 03/17/2019 Status: Denied (KIM HANNA, RN-Utilization Review 03/28/2019 10:17) Comment 3: Uploaded clinicals to [facility] via [employer]. (LALO MESA, ZOHREH-Utilization Review 03/18/2019 10:16) BEST IBANEZ RN - 03/30/2019 11:03 EDT documented in this encounter Plan of Treatment Upcoming Encounters Date Type Department Care Team (Late st Contact Info) Description 01/07/2025 1:45 PM EDT Office Visit [facility] [address] [facility] [address] [place] [address] Tenzin Lozoya APRN [address] [place] [address] 04/01/2025 2:00 PM EDT Appointment [facility] [address] [facility] [address] [place] [address] documented as of this encounter Visit Diagnoses Not on filedocumented in this encounter Care Teams Acoustical Material Worker Relationship Specialty Start Date End Date Js Jack MD [address] [place] [address] PCP - General General Internal Medicine 02/28/23 documented as of this encounter
--- OUTSIDE RECORDS SUMMARY | 2024-12-07 14:45 | XMS_ITS | Encounter Summary ---
Author Organization [employer] Address [address] [place] [address] Care Team Providers Care Cork Cutter Name Role Phone Guero Schmitt MD, John Primary Care Provider Encounter Details Date Type Department Care Team (Late st Contact Info) Description 03/21/2019 Transcribed Document [facility] Family Medicine [address] [place] [address] ProviderFrida MD [address] [place] [address] Social History Tobacco Use Types Packs/Day Years Used Date Smoking Tobacco: Never Assessed Comments Unknown Sex and Gender Information Value Date Recorded Sex Assigned at Not on file Legal Sex Female 5:43 PM CDT Gender Identity Not on file Sexual Orientation Not on file documented as of this encounter Miscellaneous Notes * Cerner Conversion Note - Frida Morataya MD - 03/21/2019 7:00 AM CDT [facility] PreOp Summary Primary Physician: SAMEERA IRELAND MD-GAE Finalized Date/Time: 03/21/19 07:50:38 Pt. Name: BIANCA ZAZUETA /Sex: 1955 Female Med Rec #: [id number] Physician: Key SIMMONS MD-OBG Financial #: [id number] Pt. Type: I Room/Bed: [facility]/1 Admit/Disch: 03/18/19 07:52:00 - Institution: [facility] PreOp Case Times Entry 1 In Preop 03/21/19 07:40:00 Ready for Holding n/a Room Patient Ready for 03/21/19 07:50:00 Surgery Patient Out of Preop 03/21/19 07:50:00 Patient Out of 03/21/19 07:50:00 Holding Room Finalized By: Rosalinda Morgan Rn Document Signatures Signed By: Rosalinda Morgan Rn 03/21/19 07:50 Electronically signed by B[facility] Conversion Ic Designer [employer]ner at 10/01/2022 5:19 PM CDT documented in this encounter Plan of Treatment Upcoming Encounters Date Type Department Care Team (Late st Contact Info) Description 01/07/2025 1:45 PM EDT Office Visit [facility] [address] [facility] [address] [place] [address] Tenzin Lozoya APRN [address] [place] [address] 04/01/2025 2:00 PM EDT Appointment [facility] [address] [place] [address] documented as of this encounter Visit Diagnoses Not on filedocumented in this encounter Care Teams Cork Cutter Relationship Specialty Start Date End Date Js Jack MD [address] [facility] [address] [place] [address] PCP - General General Internal Medicine 02/28/23 documented as of this encounter
--- OUTSIDE RECORDS SUMMARY | 2024-12-07 14:45 | XMS_ITS | Encounter Summary ---
Author Organization [employer] Address [address] [place] [address] Care Team Providers Care Hammer Shop Supervisor Name Role Phone Guero Schmitt MD, John Primary Care Provider [phone] Encounter Details Date Type Department Care Team (Late st Contact Info) Description 03/21/2019 Transcribed Document [facility] [place] [address] ProviderFrida MD [address] [place] [address] Social History Tobacco Use Types Packs/Day Years Used Date Smoking Tobacco: Never Assessed Comments Unknown Sex and Gender Information Value Date Recorded Sex Assigned at Not on file Legal Sex Female 5:43 PM CDT Gender Identity Not on file Sexual Orientation Not on file documented as of this encounter Miscellaneous Notes * Cerner Conversion Note - Frida Morataya MD - 03/21/2019 9:15 AM CDT Patient: BIANCA ZAZUETA Age: 63 years Sex: Female : 1955 Associated Diagnoses: None Author: GLENDA LONGORIA MD-NEP Subjective + urinary retention yesterday, norton cath placed Objective VS/Measurements Vitals Signs (last 24 hrs) Last Charted Minimum Maximum Temp 98.9 (MAR 21 07:00) 98.9 (MAR 21 07:00) 99.2 (MAR 20 10:00) Apical HR 88 (MAR 20 23:38) 88 (MAR 20 19:37) H 115 (MAR 20 11:18) Mon HR 85 (MAR 21 08:35) 77 (MAR 21 08:30) 115 (MAR 20 11:18) Resp Rate 20 (MAR 21 08:35) 16 (MAR 20 10:00) 20 (MAR 21 08:25) SBP 96 (MAR 21 08:35) L 87 (MAR 21 08:30) H 157 (MAR 20 11:18) DBP 63 (MAR 21 08:35) L 54 (MAR 21 08:30) H 102 (MAR 20 11:18) MAP 72 (MAR 21 06:17) 68 (MAR 20 22:08) 115 (MAR 20 10:00) SpO2 L 93 (MAR 21 08:35) L 90 (MAR 20 22:08) 98 (MAR 20 17:58) Intake & Output Totals Last 24 Hours (7a-7a) Intake (24 Events) Medications (678.5 mL) Oral Intake (1080 mL) Output (7 Events) Norton Catheter (500 mL) Straight Catheter (825 mL) Urine Voided (Volume) (900 mL) Input Total: 1758.5 mL Output Total: 2225 mL Balance: -466.5 mL General: No acute distress, WDWF. Respiratory: Lungs are clear to auscultation, Respirations are non-labored. Cardiovascular: Normal rate, No edema. Gastrointestinal: Soft, + Mild TTP. + surgical wounds. . Genitourinary: + norton. Integumentary: Warm, Dry, No rash. Neurologic: Alert, Oriented. Psychiatric: Cooperative, Appropriate mood & affect. Results Review Labs (Last four charted values) WBC H 12.7 (MAR 21) H 15.3 (MAR 08) H 18.5 (MAR 07) H 18.8 (MAR 06) HB L 9.9 (MAR 09) L 10.9 (MAR 08) 12.2 (MAR 07) 12.0 (MAR 06) HCT L 29.1 (MAR 09) L 32.6 (MAR 08) 36.1 (MAR 07) 36.0 (MAR 06) Plt 323 (MAR 09) 318 (MAR 08) H 374 (MAR 07) 335 (MAR 06) Na L 127 (MAR 09) L 127 (MAR 08) L 126 (MAR 08) L 126 (MAR 08) K L 3.2 (OCT 09) L 2.9 (MAR 20) L 3.1 (MAR 20) L 3.4 (MAR 07) Cl L 90 (MAR 21) L 88 (MAR 20) L 89 (MAR 19) L 87 (MAR 18) CO2 27 (MAR 21) 30 (MAR 20) 28 (MAR 19) 27 (MAR 18) BUN 13 (MAR 21) 13 (MAR 20) 10 (MAR 19) 10 (MAR 18) Cr L 0.49 (MAR 21) 0.62 (MAR 20) 0.74 (MAR 19) 0.60 (MAR 18) Glu R 90 (MAR 21) 101 (MAR 20) H 141 (MAR 19) H 131 (MAR 18) Ca L 7.9 (MAR 21) 8.5 (MAR 20) 8.5 (MAR 19) 8.9 (MAR 18) Lactic 2.0 (MAR 19) C 3.2 (MAR 18) C 2.3 (MAR 18) C 2.5 (MAR 17) AST 33 (MAR 19) 26 (MAR 18) 19 (MAR 17) 19 (MAR 13) ALT 28 (MAR 19) 21 (MAR 18) 20 (MAR 17) 19 (MAR 13) ALK P 63 (MAR 19) 53 (MAR 18) 51 (MAR 17) 55 (MAR 13) T Bili 0.7 (MAR 19) 0.4 (MAR 18) 0.5 (MAR 17) 0.3 (MAR 13) PTN 6.8 (MAR 19) 6.5 (MAR 18) 6.7 (MAR 17) 7.1 (MAR 13) ALB 3.4 (MAR 19) L 3.3 (MAR 18) 3.5 (MAR 17) 3.8 (MAR 13) Lipase 97 (MAR 06) 90 (OCT 05) Troponin C 0.923 (MAR 19) C 0.721 (MAR 18) <0.015 (MAR 17) <0.015 (MAR 17) Impression and Plan Hyponatremia: Na stable 127. 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 need Urine Osm. No salt restriction to diet. Use tolvaptan if diuretic needed. restrict FW. HTN: BP stable. Hypokalemia: replace as needed. Mg OK Lactic Acidosis: better. Leukocytosis: improving W/U underway S/P surgery for prolapse uterus. Elevated Trop: cardiology evaluating. Volume: Watch with Norton cath and good UOP. avoid loop diuretics as will make Na worse. Use tolvaptan if needed for fluid off. High risk and complexity pt. documented in this encounter Plan of Treatment Upcoming Encounters Date Type Department Care Team (Late st Contact Info) Description 01/07/2025 1:45 PM EDT Office Visit [facility] [address] [place] [address] Tenzin Lozoya APRN [address] [place] [address] 04/01/2025 2:00 PM EDT Appointment [facility] [address] [place] [address] documented as of this encounter Visit Diagnoses Not on filedocumented in this encounter Care Teams Hammer Shop Supervisor Relationship Specialty Start Date End Date Js Jack MD [address] [facility] [address] [place] [address] PCP - General General Internal Medicine 02/28/23 documented as of this encounter
--- OUTSIDE RECORDS SUMMARY | 2024-12-07 14:45 | XMS_ITS | Encounter Summary ---
Author Organization [employer] Address [address] [place] [address] Care Team Providers Care Civil Service Clerk Name Role Phone Guero Schmitt MD, John Primary Care Provider [phone] Encounter Details Date Type Department Care Team (Late st Contact Info) Description 03/17/2019 Transcribed Document [facility] Family Medicine [address] [place] [address] ProviderFrida MD [address] [place] [address] Social History Tobacco Use Types Packs/Day Years Used Date Smoking Tobacco: Never Assessed Comments Unknown Sex and Gender Information Value Date Recorded Sex Assigned at Not on file Legal Sex Female 5:43 PM CDT Gender Identity Not on file Sexual Orientation Not on file documented as of this encounter Miscellaneous Notes * Cerner Conversion Note - Frida Morataya MD - 03/17/2019 1:10 PM CDT Rapid Response Team Documentation Entered On: 03/17/2019 13:24 EDT Performed On: 03/17/2019 13:10 EDT by CLARA BARNES RN Rapid Response Event Time Rapid Response Team Called : 03/17/2019 11:18 EDT Rapid Response Team Arrival Time : 03/17/2019 11:19 EDT Rapid Response Team Event End Time : 03/17/2019 12:00 EDT Rapid Response Event Intiated By : Hospital Staff Rapid Response Team Initiation Reason : Chest pain Rapid Response Event Location Type : Other: 436 Rapid Response Team Initiation Reason Details : Called to room 436, pt c/o midsternal chest pain. 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 Dr Crisostomo notified, see orders. Stat 12 lead EKG obtained- resulted NSR, no ST elevation noted. Stat CXR and cardiac panel ordered- resulted negative. MD at bedside, encouraged ambulation. Simethicone ordered. Walked pt approx 100 ft. Hospitalist consulted for further review of patient's symptoms. Rapid Response Admission Diagnosis : Rectocele Rectocele Rapid Response Medical Background : Anxiety (Medical) At risk for sleep apnea (Medical) Hypertension (Medical) Meningioma (Medical) Rapid Response Allergies : Substance Category Reactions Severity Lunesta Drug Swelling Nickel Drug Rash Rapid Response Recent Vital Signs : 03/17/2019 11:18 Systolic Blood Pressure 187 03/17/2019 11:18 Diastolic Blood Pressure 90 03/17/2019 11:18 Heart Rate Monitored 60 03/17/2019 11:18 Respiratory Rate 16 03/17/2019 11:18 Temperature, Fahrenheit 97.6 03/17/2019 11:18 Oxygen Saturation 96 Rapid Response Recent Lab Results : 03/13/2019 13:14 Sodium Level LOW 133 (136-146) 03/13/2019 13:14 Potassium Level 4.2 (3.5-5.1) 03/13/2019 13:14 Calcium Level 8.6 (8.5-10.1) 03/13/2019 13:14 Chloride Level LOW 98 (102-112) 03/13/2019 13:14 Carbon Dioxide Level 30 (21-32) 03/13/2019 13:14 Blood Urea Nitrogen 15 (7-22) 03/13/2019 13:14 Creatinine Level 0.75 (0.55-1.02) 03/17/2019 03:59 Hgb 11.2 (11.2-15.7) 03/17/2019 03:59 Hct 34.8 (34.1-44.9) 03/17/2019 03:59 RBC 4.03 (3.93-5.22) 03/17/2019 03:59 WBC HI 17.5 (3.9-10.0) 03/17/2019 03:59 Platelet Count 272 (163-369) 03/17/2019 11:52 Troponin I Ultra <0.015 (0.015-0.045) 03/17/2019 11:52 CK MB 2.20 (0.50-3.60) Weight/BMI : Clinical Weight/BMI CLINICALWEIGHT: 74.55 kg (03/16/19 06:32:00) CLINICALWEIGHT: 74.55 kg (03/16/19 06:20:00) CLINICALWEIGHT: 74.55 kg (03/16/19 05:35:00) CLINICALWEIGHT: 74.55 kg (03/13/19 12:55:00) Body Mass Index: 27.3 kg/m2 High (03/16/19 06:32:00) Body Mass Index: 27.3 kg/m2 High (03/16/19 06:20:00) Body Mass Index: 27.3 kg/m2 High (03/16/19 05:35:00) Body Mass Index: 27.3 kg/m2 High (03/13/19 12:55:00) CLARA BARNES RN - 03/17/2019 13:10 EDT documented in this encounter Plan of Treatment Upcoming Encounters Date Type Department Care Team (Late st Contact Info) Description 01/07/2025 1:45 PM EDT Office Visit [facility] [address] [facility] [address] [place] [address] Tenzin Lozoya APRN [address] [facility] [address] [place] [address] 04/01/2025 2:00 PM EDT Appointment [facility] [address] [facility] [address] [place] [address] documented as of this encounter Visit Diagnoses Not on filedocumented in this encounter Care Teams Civil Service Clerk Relationship Specialty Start Date End Date Js Jack MD [address] [facility] [address] [place], [place] [id number] PCP - General General Internal Medicine 02/28/23 documented as of this encounter
--- OUTSIDE RECORDS SUMMARY | 2024-12-07 14:45 | XMS_ITS | Encounter Summary ---
Author Organization [employer] Address [address] [place] [address] Care Team Providers Care Research Biologist Name Role Phone Guero Schmitt MD, John Primary Care Provider [phone] Encounter Details Date Type Department Care Team (Late st Contact Info) Description 03/28/2019 Transcribed Document [facility] Family Medicine [address] [place] [address] ProviderFrida MD [address] [place], [place] [id number] Social History Tobacco Use Types Packs/Day Years Used Date Smoking Tobacco: Never Assessed Comments Unknown Sex and Gender Information Value Date Recorded Sex Assigned at Not on file Legal Sex Female 5:43 PM CDT Gender Identity Not on file Sexual Orientation Not on file documented as of this encounter Miscellaneous Notes * Cerner Conversion Note - Frida Morataya MD - 03/28/2019 10:17 AM CDT UM Authorization Entered On: 03/28/2019 10:18 EDT Performed On: 03/28/2019 10:17 EDT by KIM HANNA RN-Utilization Review Primary Insurance Authorization Authorization and Policy Numbers : Insurance 1 Health Plan: [employer] Policy Number: [id number] Authorization Number: Insurance Primary Name : Nay [facility] [employer] [id number] Authorization Status-Primary : Denial - admission Authorized Service Begin Date-Primary : 03/18/2019 EDT Authorization Comments-Primary : Requested Received Date: 03/18/2019 11:05:00 AM Requested Days: 1 Start Date of Service: 03/16/2019 Authorized Days: 0 End Date of Service: 03/17/2019 Status: Denied Historical Authorization Comments-Primary : Comment 1: Uploaded clinicals to [facility] via [employer]. (LALO MESA, RN-Utilization Review 03/18/2019 10:16) IKM HANNA, RN-Utilization Review - 03/28/2019 10:17 EDT documented in this encounter Plan of Treatment Upcoming Encounters Date Type Department Care Team (Late st Contact Info) Description 01/07/2025 1:45 PM EDT Office Visit [facility] [address] [place] [address] Tenzin Lozoya APRN [address] [place] [address] 04/01/2025 2:00 PM EDT Appointment [facility] [address] [place] [address] documented as of this encounter Visit Diagnoses Not on filedocumented in this encounter Care Teams Research Biologist Relationship Specialty Start Date End Date Js Jack MD [address] [place] [address] PCP - General General Internal Medicine 02/28/23 documented as of this encounter
--- OUTSIDE RECORDS SUMMARY | 2024-12-07 14:45 | XMS_ITS | Encounter Summary ---
Author Organization [employer] Address [address] [place] [address] Care Team Providers Care Him Specialist Name Role Phone Guero Schmitt MD, John Primary Care Provider [phone] Encounter Details Date Type Department Care Team (Late st Contact Info) Description 03/16/2019 Transcribed Document [facility] Family Medicine [facility] [place] [address] ProviderFrida MD [address] [place] [id number] Social History Tobacco Use Types Packs/Day Years Used Date Smoking Tobacco: Never Assessed Comments Unknown Sex and Gender Information Value Date Recorded Sex Assigned at Not on file Legal Sex Female 5:43 PM CDT Gender Identity Not on file Sexual Orientation Not on file documented as of this encounter Miscellaneous Notes * Cerner Conversion Note - Frida Morataya MD - 03/16/2019 9:30 AM CDT DATE OF PROCEDURE: 03/16/2019 OPERATIVE REPORT PREOPERATIVE DIAGNOSIS(ES): 1. Vaginal vault prolapse. 2. Rectocele. 3. Stress urinary incontinence. 4. Pelvic pain. POSTOPERATIVE DIAGNOSIS(ES): 1. Vaginal vault prolapse. 2. Rectocele. 3. Stress urinary incontinence. 4. Pelvic pain. 5. Extensive adhesions. PROCEDURE: Robotic laparoscopy, extensive lysis of adhesions, bilateral salpingo-oophorectomy, vaginal uterosacral suspension, retropubic mid-urethral sling with posterior repair, cystoscopy. SURGEON: Kerry Crisostomo M.D. IDENTIFICATION: Bianca is a 63-year-old 5, who presents post hysterectomy with vaginal prolapse and a significant rectocele, she also has hypermobility with stress urinary incontinence and pelvic pain. She is for definitive therapy at this time. She understands the options that are available to her and is currently on hormone replacement. DESCRIPTION OF PROCEDURE: The patient was taken to the operating quarter, placed in a supine semi-Paredes position. After adequate general endotracheal anesthesia was obtained, she was prepped and draped per routine fashion for laparoscopic procedure. Periumbilical skin incision was made. Veress needle was inserted in separate cavity. CO2 was allowed to insufflate to create pneumoperitoneum. Laparoscope was inserted. Second and third puncture sites were made 10 cm lateral, one on either side. Triangulation made 2 cm above the costal margin right for an assist port. The robot was docked. Inspection of pelvis revealed significant large bowel adhesions to the vaginal apex, the left side wall and left adnexa. The right adnexa were adhered to pelvic sidewall. All adhesions were addressed successfully. The infundibulopelvic ligaments and remaining connective tissues were taken down and the both tubes and ovaries were removed. Attention then turned to the suspension, 0 Ethibond was used. A pass was made through the uterosacral ligament at its insertion of the posterior vaginal cuff on each side, then the ipsilateral uterosacral ligament 6 cm cephalad and a second pass was made on each side, then 2 cm medial to the first on the vaginal cuff and 4 cm more proximal on the uterosacral ligament. These were tied down intracorporeally with good elevation and support. Ureters remained unencumbered. Hemostasis was excellent. The assist port was closed with 0 Vicryl in the fascia. All incisions were closed with 3-0 Monocryl and Dermabond. Attention turned to the incontinence procedure. Two small suprapubic incisions were made 2 cm on either side of the midline after injecting with local. A small suburethral incision was made 1 cm from the urethral meatus and after injecting with local this was undermined at 3 o'clock and 9 o'clock. The retropubic sling was then prepared. The Hoyos catheter with catheter guide was positioned deviated to patient's right side. The trocar was passed to the right of the urethra under the symphysis through the retropubic space and exited through the previously made skin incision on that side. The catheter and catheter guide were removed. Cystoscopy was performed. Urethra was normal throughout its length. Contour of the bladder was unremarkable. Ureteral orifices were normal. Clear urine seen to efflux bilaterally. No lesions, tumors, or foreign bodies were noted. Same procedure then repeated on the patient's left. Again cystoscopy confirmed no trauma to the bladder. The sling was then adjusted appropriately and held into position as the protective sheaths were removed. The mesh was trimmed above the skin line. Skin closed with Dermabond. The incision closed with 0-chromic running locked suture. A John dilator passed without resistance. Attention turned to the posterior repair. The upper limits of the defect were grasped with Allis clamps and also along the midline a subfascial injection of dilute Marcaine was undertaken and incision made through the vaginal mucosa and fascia and the fascia dissected away from underlying tissue, the perineal muscles were approximated with two [id number] of 0-Vicryl. After trimming the edges of the mucosa and fascia an overlapping double closure was undertaken with 0 chromic. Rectal exam confirmed no compromise. Vaginal packing with Betadine was placed. Hoyos catheter was replaced. Sponge and needle counts were correct. Blood loss less than 50 mL. Patient tolerated the procedure well, left the room in satisfactory condition. Kerry Crisostomo M.D. Dict: 03/16/2019 09:30:47 Trans: 03/16/2019 10:29:43 CC1: Kerry Crisostomo M.D. Electronically signed by [facility] Conversion Hospice Manager Cerner at 10/01/2022 5:26 PM CDT documented in this encounter Plan of Treatment Upcoming Encounters Date Type Department Care Team (Late st Contact Info) Description 01/07/2025 1:45 PM EDT Office Visit [facility] [address] [facility] [address] [place] [address] Tenzin Lozoya APRN [address] [place] [address] 04/01/2025 2:00 PM EDT Appointment [facility] [address] [place] [address] documented as of this encounter Visit Diagnoses Not on filedocumented in this encounter Care Teams Him Specialist Relationship Specialty Start Date End Date Guero, Js Schmitt MD [address] [place] [id number] PCP - General General Internal Medicine 02/28/23 documented as of this encounter
--- OUTSIDE RECORDS SUMMARY | 2024-12-07 14:45 | XMS_ITS | Encounter Summary ---
Author Organization [employer] Address [address] [place] [address] Care Team Providers Care Pharmacy Informaticist Name Role Phone Guero Schmitt MD, John Primary Care Provider [phone] Encounter Details Date Type Department Care Team (Late st Contact Info) Description 03/22/2019 Transcribed Document [facility] [place] [facility] [place] [address] ProviderFrida MD [address] [place] [id number] Social History Tobacco Use Types Packs/Day Years [...] Morataya MD - 03/22/2019 3:34 PM CDT Patient Education Materials Follows: Anterior and Posterior Colporrhaphy and Sling Procedure, [...] and water are not available, use hand harness puller. ? Clean your incision as told by [...] provider may recommend that you: ? Take awxe-rwb-ujedbui or prescription medicines. ? Eat foods that [...] by your health care provider. ??? Take exrd-typ-odkhkri and prescription medicines only as told by [...] 01/11/2005 Document Revised: 05/30/2017 Document Reviewed: 05/30/2017 Elsevier Interactive Patient Education ? 2019 [employer] documented in this encounter Plan of Treatment Upcoming Encounters Date Type Department Care Team (Late st Contact Info) Description 01/07/2025 1:45 PM EDT Office Visit [facility] [address] [address] Tenzin Lozoya APRN [address] [place] [address] 04/01/2025 2:00 PM EDT Appointment [facility] [address] [facility] [address] [place] [address] documented as of this encounter Visit Diagnoses Not on filedocumented in this encounter Care Teams Pharmacy Informaticist Relationship Specialty Start Date End Date Js Jack MD [address] [facility] [address] [place] [address] PCP - General General Internal Medicine 02/28/23 documented as of this encounter
--- OUTSIDE RECORDS SUMMARY | 2024-12-07 14:45 | XMS_ITS | Encounter Summary ---
Author Organization [employer] Address [address] [place] [address] Care Team Providers Care Dimensional Engineer Name Role Phone Guero Schmitt MD, John Primary Care Provider Encounter Details Date Type Department Care Team (Late st Contact Info) Description 03/22/2019 Transcribed Document [facility] [place] [facility] [place] [address] ProviderFrida MD [address] [place] [address] Social History Tobacco Use Types Packs/Day Years Used Date Smoking Tobacco: Never Assessed Comments Unknown Sex and Gender Information Value Date Recorded Sex Assigned at Not on file Legal Sex Female 5:43 PM CDT Gender Identity Not on file Sexual Orientation Not on file documented as of this encounter Miscellaneous Notes * Cerner Conversion Note - Frida Morataya MD - 03/22/2019 5:19 PM CDT Nursing Discharge Summary Entered On: 03/22/2019 17:47 EDT Performed On: 03/22/2019 17:19 EDT by Luisa Simon Rn Discharge Documentation Discharge Date/Time : 03/22/2019 16:24 EDT Transporter Signature : Luisa Simon RN Patient Disposition, General : Discharge Discharge To : residential Mode Of Departure, General Discharge : Private vehicle Accompanied By, Discharge : Spouse IV Discontinued : Yes Prescriptions Given to Patient : Yes Number of Prescriptions Given : 3 Luisa Simon Rn - 03/22/2019 17:19 EDT Electronically signed by Bety [facility] Conversion Shoe Singer Cerner at 10/01/2022 5:15 PM CDT documented in this encounter Plan of Treatment Upcoming Encounters Date Type Department Care Team (Late st Contact Info) Description 01/07/2025 1:45 PM EDT Office Visit [facility] [address] [facility] [address] [place] [address] Tenzin Lozoya APRN [address] [place] [address] 04/01/2025 2:00 PM EDT Appointment [facility] Breast [facility] [address] [facility] [address] [place] [address] documented as of this encounter Visit Diagnoses Not on filedocumented in this encounter Care Teams Dimensional Engineer Relationship Specialty Start Date End Date Js Jack MD [address] [facility] [address] [place] [address] PCP - General General Internal Medicine 02/28/23 documented as of this encounter
--- OUTSIDE RECORDS SUMMARY | 2024-12-07 14:45 | XMS_ITS | Encounter Summary ---
Author Organization [employer] Address [address] [place] [address] Care Team Providers Care Broiler Chef Or Cook Name Role Phone Guero Schmitt MD, John Primary Care Provider [phone] Encounter Details Date Type Department Care Team (Late st Contact Info) Description 03/16/2019 Transcribed Document [facility] [place] [facility] [place] [facility] [place] [address] ProviderFrida MD [address] [place] [address] Social History Tobacco Use Types Packs/Day Years Used Date Smoking Tobacco: Never Assessed Comments Unknown Sex and Gender Information Value Date Recorded Sex Assigned at Not on file Legal Sex Female 5:43 PM CDT Gender Identity Not on file Sexual Orientation Not on file documented as of this encounter Miscellaneous Notes * Cerner Conversion Note - Frida ProviderMD - 03/16/2019 6:20 AM CDT Pediatric Growth Entered On: 03/16/2019 6:20 EDT Performed On: 03/16/2019 6:20 EDT by Sayra Henley Care [facility] Unit Coord Height and Weight, Clinical Dosing Height Source : Stated Height Entry Format : Penn Height, Feet : 5 ft(Converted to: 152 cm, 60 Inch) Height, Inches : 5 Inch(Converted to: 0 ft 5 Inch, 12.70 cm) Clinical Height : 165.1 cm Weight Source : Standing scale Weight Entry Format : Penn Clinical Dosing Weight : 74.55 kg Weight, Pounds : 164 lb Body Surface Area (BSA) : 1.82 m2 Body Mass Index : 27.3 kg/m2 (HI) Colon Body Weight : 57 kg Sayra Henley Care Asst-Health Unit Coord - 03/16/2019 6:20 EDT Electronically signed by Darryl Albert Conversion Sulfonation Equipment Operator Cerner at 10/01/2022 5:33 PM CDT documented in this encounter Plan of Treatment Upcoming Encounters Date Type Department Care Team (Late st Contact Info) Description 01/07/2025 1:45 PM EDT Office Visit [facility] [address] [place] [address] Tenzin Lozoya APRN [address] [place] [address] 04/01/2025 2:00 PM EDT Appointment [facility] [address] [place] [address] documented as of this encounter Visit Diagnoses Not on filedocumented in this encounter Care Teams Broiler Chef Or Cook Relationship Specialty Start Date End Date Js Jack MD [address] [facility] [address] [place] [address] PCP - General General Internal Medicine 02/28/23 documented as of this encounter
--- OUTSIDE RECORDS SUMMARY | 2024-12-07 14:45 | XMS_ITS | Encounter Summary ---
Author Organization [employer] Address [address] [place] [address] Care Team Providers Care Counter Supply Worker Name Role Phone Guero Schmitt MD, John Primary Care Provider [phone] Encounter Details Date Type Department Care Team (Late st Contact Info) Description 03/17/2019 Transcribed Document [facility] [place] [address] [place] [address] ProviderFrida MD [address] [place] [address] Social History Tobacco Use Types Packs/Day Years Used Date Smoking Tobacco: Never Assessed Comments Unknown Sex and Gender Information Value Date Recorded Sex Assigned at Not on file Legal Sex Female 5:43 PM CDT Gender Identity Not on file Sexual Orientation Not on file documented as of this encounter Miscellaneous Notes * Cerner Conversion Note - Frida ProviderMD - 03/17/2019 5:00 PM CDT Chart Check - Review Order Profile Entered On: 03/17/2019 18:28 EDT Performed On: 03/17/2019 17:00 EDT by Fay Johnson RN Chart Check Powerplans Initiated/Discontinued as Appropriate : Yes All Active Orders Reviewed : Yes Fay Johnson RN - 03/17/2019 18:28 EDT Electronically signed by Darryl Albert Conversion Planning Management It Specialist Alirezaner at 10/01/2022 5:17 PM CDT documented in this encounter Plan of Treatment Upcoming Encounters Date Type Department Care Team (Late st Contact Info) Description 01/07/2025 1:45 PM EDT Office Visit [address] [place] [address] Tenzin Lozoya APRN [address] [place] [address] 04/01/2025 2:00 PM EDT Appointment [facility] [address] [place] [address] documented as of this encounter Visit Diagnoses Not on filedocumented in this encounter Care Teams Counter Supply Worker Relationship Specialty Start Date End Date Guero, Js Schmitt MD [address] [facility] [address] [place], [place] [id number] PCP - General General Internal Medicine 02/28/23 documented as of this encounter
--- OUTSIDE RECORDS SUMMARY | 2024-12-07 14:45 | XMS_ITS | Patient Health Record ---
Author Organization [facility] Address [address] [facility] [address] [place] [address] Care Team Providers Care Data Entry Supervisor Name Role Phone Clara Crawford Unavailable [phone] Allergies Allergen (clinical drug ingredient) Drug/Non Drug Allergy documented on EMR Reaction Allergy Type Onset Date Status eszopiclone LUNESTA (uncoded) Unspecified Allergy 01/07/20 Active Reason For Referral No Information Problems Problem Type SNOMED Code ICD Code Onset Dates Problem Status W/U Status Risk Notes Problem Hormone replacement therapy (713779019) Counseling for estrogen replacement therapy (Z79.890) 01/07/20 20 Active confirmed HRT Problem Gynecological examination normal (610153555608851 ) Cervical smear, as part of routine gynecological examination (Z01.419) 01/07/20 Active confirmed Annual without abnormal findings Plan Of Treatment No Information Medical (General) History Medical History History ICD Code acid reflux HTN METOPROLOL TARTRATE TABLET ESTRADIOL 0.05 MG/24HR TRANSDERMAL PATCH TWICE WEEKLY, TRANS HYDROCHLOROTHIAZIDE TABLET LOSARTAN POTASSIUM TABLET NEXIUM PACKET Surgical History Surgery Date(Month/Year) hysterectomy - 1999 pelvic prolapse repair - 03/2019 breast lift - 2007 back surgery - 12/10/19
--- OUTSIDE RECORDS SUMMARY | 2024-12-07 14:45 | XMS_ITS | Encounter Summary ---
Author Organization [employer] Address [address] [address] Care Team Providers Care Ice Cream Freezer Helper Name Role Phone Guero Schmitt MD, John Primary Care Provider [phone] Encounter Details Date Type Department Care Team (Late st Contact Info) Description 04/02/2019 Transcribed Document [facility] [place] [address] [place] [address] ProviderFrida MD [address] [place] [address] Social History Tobacco Use Types Packs/Day Years Used Date Smoking Tobacco: Never Assessed Comments Unknown Sex and Gender Information Value Date Recorded Sex Assigned at Not on file Legal Sex Female 5:43 PM CDT Gender Identity Not on file Sexual Orientation Not on file documented as of this encounter Miscellaneous Notes * Cerner Conversion Note - Frida Morataya MD - 04/02/2019 8:39 AM CDT UM Authorization Entered On: 04/02/2019 8:40 EDT Performed On: 04/02/2019 8:39 EDT by BEST IBANEZ RN Primary Insurance Authorization Authorization and Policy Numbers : Insurance 1 Health Plan: [employer] Policy Number: [id number] Authorization Number: Insurance Primary Name : [facility] [id number] Authorization Status-Primary : Denial - admission Authorization Number-Primary : [id number] Authorized Service Begin Date-Primary : 03/18/2019 EDT Authorization Comments-Primary : Found fax # for office [phone] and faxed denial. Historical Authorization Comments-Primary : Comment 1: Called Dr. Crisostomo office to discuss denial-- Per Jordy she will give check with Dr. Crisostomo regarding completing P2P (BEST IBANEZ RN 03/30/2019 11:06) Comment 2: 03/28/[address] VM [address] Dr. Crisostomo office for P2P (EBST IBANEZ RN 03/30/2019 11:03) Comment 3: Faxed reconsideration clinicals to [facility]. (BEST IBANEZ RN 03/28/2019 13:18) Comment 4: Requested Received Date: 03/18/2019 11:05:00 AM Requested Days: 1 Start Date of Service: 03/16/2019 Authorized Days: 0 End Date of Service: 03/17/2019 Status: Denied (KIM HANNA RN-Utilization Review 03/28/2019 10:17) Comment 5: Uploaded clinicals to [facility] [email or web address] via [employer]. (LALO MESA, ZOHREH-Utilization Review 03/18/2019 10:16) BEST IBANEZ RN - 04/02/2019 8:39 EDT documented in this encounter Plan of Treatment Upcoming Encounters Date Type Department Care Team (Late st Contact Info) Description 01/07/2025 1:45 PM EDT Office Visit [facility] [address] [place] [address] Tenzin Lozoya APRN [address] [place] [address] 04/01/2025 2:00 PM EDT Appointment [facility] Breast [facility] [address] [facility] [address] [place] [address] documented as of this encounter Visit Diagnoses Not on filedocumented in this encounter Care Teams Ice Cream Freezer Helper Relationship Specialty Start Date End Date Js Jack MD [address] [place], [place] [id number] PCP - General General Internal Medicine 02/28/23 documented as of this encounter
--- OUTSIDE RECORDS SUMMARY | 2024-12-07 14:45 | XMS_ITS | Encounter Summary ---
Author Organization [employer] Address [address] [place] [address] Care Team Providers Care Internet Marketing Director Name Role Phone Guero Schmitt MD, John Primary Care Provider [phone] Encounter Details Date Type Department Care Team (Late st Contact Info) Description 03/21/2019 Transcribed Document [facility] [place] [facility] [place] [address] ProviderFrida MD [address] [place] [address] Social History Tobacco Use Types Packs/Day Years Used Date Smoking Tobacco: Never Assessed Comments Unknown Sex and Gender Information Value Date Recorded Sex Assigned at Not on file Legal Sex Female 5:43 PM CDT Gender Identity Not on file Sexual Orientation Not on file documented as of this encounter Miscellaneous Notes * Cerner Conversion Note - Frida ProviderMD - 03/21/2019 2:00 AM CDT School Psychology Professor Details Entered On: 03/21/2019 5:46 EDT Performed On: 03/21/2019 2:00 EDT by Glenny Garcia, Rn Order Details Transport Mode Order Detail : Wheelchair Isolation Precautions Order Detail : Standard Precautions Order Detail : 0 IV Order Detail : 1 Oxygen Order Detail : 0 Nurse Collect Order Detail : 0 Lift/Transfer : Minimal Central Line Order Detail : No Room Service : Not Appropriate Arterial Line : No Glenny Garcia, Rn - 03/21/2019 5:46 EDT documented in this encounter Plan of Treatment Upcoming Encounters Date Type Department Care Team (Late st Contact Info) Description 01/07/2025 1:45 PM EDT Office Visit [facility] [address] [place] [address] Tenzin Lozoya APRN [address] [place] [address] 04/01/2025 2:00 PM EDT Appointment [facility] Breast [facility] [address] [facility] [address] [place] [address] documented as of this encounter Visit Diagnoses Not on filedocumented in this encounter Care Teams Internet Marketing Director Relationship Specialty Start Date End Date Js Jack MD [address] [facility] [address] [place], [place] [id number] PCP - General General Internal Medicine 02/28/23 documented as of this encounter
--- OUTSIDE RECORDS SUMMARY | 2024-12-07 14:45 | XMS_ITS | Encounter Summary ---
Author Organization [employer] Address [address] [place] [address] Care Team Providers Care Biologist Name Role Phone Guero Schmitt MD, John Primary Care Provider [phone] Encounter Details Date Type Department Care Team (Late st Contact Info) Description 03/17/2019 Transcribed Document [facility] [place] [address] ProviderFrida MD [address] [place] [address] Social History Tobacco Use Types Packs/Day Years Used Date Smoking Tobacco: Never Assessed Comments Unknown Sex and Gender Information Value Date Recorded Sex Assigned at Not on file Legal Sex Female 5:43 PM CDT Gender Identity Not on file Sexual Orientation Not on file documented as of this encounter Miscellaneous Notes * Cerner Conversion Note - Frida Morataya MD - 03/17/2019 6:33 PM CDT Event Note Entered On: 03/17/2019 18:35 EDT Performed On: 03/17/2019 18:33 EDT by Fay Johnson RN Event Note Event Date/Time : 03/17/2019 13:00 EDT Description of Event : Called HOP WORKER because pt was complaining of chest pain. x-ray ordered, cardiac enzymes ordered, chest xray ordered. Dr. Crisostomo notified and is aware. Hospitalist consulted. Fay Johnson, ZOHREH - 03/17/2019 18:33 EDT Electronically signed by Darryl Albert Conversion Air Conditioning Sheet Metal Installer Cerner at 10/01/2022 5:34 PM CDT documented in this encounter Plan of Treatment Upcoming Encounters Date Type Department Care Team (Late st Contact Info) Description 01/07/2025 1:45 PM EDT Office Visit [facility] [address] [place] [address] Tenzin Lozoya APRN [address] [place] [address] 04/01/2025 2:00 PM EDT Appointment [facility] Breast [facility] [address] [facility] [address] [place] [address] documented as of this encounter Visit Diagnoses Not on filedocumented in this encounter Care Teams Biologist Relationship Specialty Start Date End Date Js Jack MD [address] [facility] [address] [place], [place] [id number] PCP - General General Internal Medicine 02/28/23 documented as of this encounter
--- OUTSIDE RECORDS SUMMARY | 2024-12-07 14:45 | XMS_ITS | Encounter Summary ---
Author Organization [email or web address] Address [address] [place] [address] Care Team Providers Care Casting Supervisor Name Role Phone Guero Schmitt MD, John Primary Care Provider [phone] Encounter Details Date Type Department Care Team (Late st Contact Info) Description 03/30/2019 Transcribed Document [facility] [place] [address] [place] [address] ProviderFrida MD [address] [place] [address] Social History Tobacco Use Types Packs/Day Years Used Date Smoking Tobacco: Never Assessed Comments Unknown Sex and Gender Information Value Date Recorded Sex Assigned at Not on file Legal Sex Female 5:43 PM CDT Gender Identity Not on file Sexual Orientation Not on file documented as of this encounter Miscellaneous Notes * Cerner Conversion Note - Frida Morataya MD - 03/30/2019 11:06 AM CDT UM Authorization Entered On: 03/30/2019 11:10 EDT Performed On: 03/30/2019 11:06 EDT by BEST IBANEZ RN Primary Insurance Authorization Authorization and Policy Numbers : Insurance 1 Health Plan: [employer] Policy Number: [id number] Authorization Number: Insurance Primary Name : [facility]ay [facility] [id number] Authorization Status-Primary : Denial - admission Authorization Number-Primary : [id number] Authorized Service Begin Date-Primary : 03/18/2019 EDT Authorization Comments-Primary : Called Dr. Crisostomo office to discuss denial-- Per Jordy she will give check with Dr. Crisostomo regarding completing P2P Historical Authorization Comments-Primary : Comment 1: 03/28/19 had [address] VM [address] Dr. Crisostomo office for P2P (BEST IBANEZ RN 03/30/2019 11:03) Comment 2: Faxed reconsideration clinicals to [facility]. (BEST IBANEZ RN 03/28/2019 13:18) Comment 3: Requested Received Date: 03/18/2019 11:05:00 AM Requested Days: 1 Start Date of Service: 03/16/2019 Authorized Days: 0 End Date of Service: 03/17/2019 Status: Denied (KIM HANNA RN-Utilization Review 03/28/2019 10:17) Comment 4: Uploaded clinicals to [facility] [employer] via [employer]. (LALO MESA RN-Utilization Review 03/18/2019 10:16) BEST IBANEZ RN - 03/30/2019 11:06 EDT Electronically signed by Bety [facility] Conversion Power Transformer Repair Supervisor Cerner at 10/01/2022 5:12 PM CDT documented in this encounter Plan of Treatment Upcoming Encounters Date Type Department Care Team (Late st Contact Info) Description 01/07/2025 1:45 PM EDT Office Visit [facility] [address] [facility] [address] [place] [address] Tenzin Lozoya APRN [address] [facility] [address] [place] [address] 04/01/2025 2:00 PM EDT Appointment [facility] Breast [facility] [address] [facility] [address] [place] [address] documented as of this encounter Visit Diagnoses Not on filedocumented in this encounter Care Teams Casting Supervisor Relationship Specialty Start Date End Date Js Jack MD [address] [place] [address] PCP - General General Internal Medicine 02/28/23 documented as of this encounter
--- OUTSIDE RECORDS SUMMARY | 2024-12-07 14:45 | XMS_ITS | Encounter Summary ---
Author Organization [employer] Address [address] [place] [address] Care Team Providers Care Consumer Studies Professor Name Role Phone Guero Schmitt MD, John Primary Care Provider [phone] Encounter Details Date Type Department Care Team (Late st Contact Info) Description 03/22/2019 Transcribed Document [facility] [place] [facility] [place] [address] ProviderFrida MD [address] [place] [address] Social History Tobacco Use Types Packs/Day Years Used Date Smoking Tobacco: Never Assessed Comments Unknown Sex and Gender Information Value Date Recorded Sex Assigned at Not on file Legal Sex Female 5:43 PM CDT Gender Identity Not on file Sexual Orientation Not on file documented as of this encounter Miscellaneous Notes * Cerner Conversion Note - Frida ProviderMD - 03/22/2019 2:00 AM CDT Turbo Operator Details Entered On: 03/22/2019 5:45 EDT Performed On: 03/22/2019 2:00 EDT by Glenny Garcia, Rn Order Details Transport Mode Order Detail : Wheelchair Isolation Precautions Order Detail : Standard Precautions Order Detail : 0 IV Order Detail : 1 Oxygen Order Detail : 1 Nurse Collect Order Detail : 0 Lift/Transfer : Minimal Central Line Order Detail : No Room Service : Appropriate Arterial Line : No Glenny Garcia, Rn - 03/22/2019 5:45 EDT documented in this encounter Plan of Treatment Upcoming Encounters Date Type Department Care Team (Late st Contact Info) Description 01/07/2025 1:45 PM EDT Office Visit [facility] [address] [place] [address] Tenzin Lozoya APRN [address] [place] [address] 04/01/2025 2:00 PM EDT Appointment [facility] [address] [facility] [address] [place] [address] documented as of this encounter Visit Diagnoses Not on filedocumented in this encounter Care Teams Consumer Studies Professor Relationship Specialty Start Date End Date Js Jack MD [address] [facility] [address] [place], [place] [id number] PCP - General General Internal Medicine 02/28/23 documented as of this encounter
--- OUTSIDE RECORDS SUMMARY | 2024-12-07 14:45 | XMS_ITS | Encounter Summary ---
Author Organization [employer] Address [address] [place] [address] Care Team Providers Care Manual Arts Therapy Teacher Name Role Phone Guero Schmitt MD, John Primary Care Provider [phone] Encounter Details Date Type Department Care Team (Late st Contact Info) Description 03/22/2019 Transcribed Document [facility] Family Medicine [address] [place] [address] ProviderFrida MD [address] [place] [address] Social History Tobacco Use Types Packs/Day Years Used Date Smoking Tobacco: Never Assessed Comments Unknown Sex and Gender Information Value Date Recorded Sex Assigned at Not on file Legal Sex Female 5:43 PM CDT Gender Identity Not on file Sexual Orientation Not on file documented as of this encounter Miscellaneous Notes * Cerner Conversion Note - Frida Morataya MD - 03/22/2019 8:13 AM CDT Patient: BIANCA ZAZUETA Age: 63 years Sex: Female : 1955 Associated Diagnoses: None Author: GLENDA LONGORIA MD-NEP Subjective stable overnight, wants to go home Objective VS/Measurements Vitals Signs (last 24 hrs) Last Charted Minimum Maximum Temp 98.3 (MAR 22 06:04) 98.3 (MAR 22 06:04) 99.6 (MAR 21 18:40) Apical HR 92 (MAR 21 22:31) 92 (MAR 21 22:31) 92 (MAR 21 22:31) Mon HR 74 (MAR 22 06:04) 74 (MAR 22 06:04) 90 (MAR 21 22:06) Resp Rate 18 (MAR 22 06:04) 18 (MAR 21 22:06) 20 (MAR 21 08:25) SBP 119 (MAR 22 06:04) L 87 (MAR 21 08:30) H 155 (MAR 21 14:53) DBP 65 (MAR 22 06:04) L 54 (MAR 21 08:30) H 96 (MAR 21 14:53) MAP 78 (MAR 22 06:04) 78 (MAR 22 06:04) 111 (MAR 21 14:53) SpO2 97 (MAR 22 06:04) L 93 (MAR 21 08:25) 97 (MAR 21 08:30) Intake & Output Totals Last 24 Hours (7a-7a) Intake (23 Events) Medications (436.42 mL) Oral Intake (1357 mL) Output (6 Events) Norton Catheter (1600 mL) Input Total: 1793.42 mL Output Total: 1600 mL Balance: 193.42 mL General: No acute distress, WDWF. Respiratory: Respirations are non-labored. Cardiovascular: No edema. Gastrointestinal: Soft, Non-distended. Genitourinary: + norton. Integumentary: Warm, Dry, No rash. Neurologic: Alert, Oriented. Psychiatric: Cooperative, Appropriate mood & affect. Results Review Labs (Last four charted values) WBC H 10.2 (MAR 10) H 12.7 (MAR 09) H 15.3 (MAR 08) H 18.5 (MAR 07) HB L 10.7 (MAR 10) L 9.9 (MAR 09) L 10.9 (MAR 08) 12.2 (MAR 07) HCT L 32.8 (OCT 10) L 29.1 (OCT 09) L 32.6 (OCT 08) 36.1 (OCT 07) Plt 337 (MAR 10) 323 (MAR 09) 318 (MAR 08) H 374 (MAR 07) Na L 130 (OCT 10) L 129 (OCT 09) L 127 (OCT 09) L 127 (OCT 09) K 3.9 (OCT 10) L 3.2 (OCT 09) L 2.9 (OCT 08) L 3.1 (OCT 08) Cl L 89 (MAR 10) L 90 (OCT 09) L 88 (OCT 08) L 89 (MAR 19) CO2 29 (MAR 22) 27 (MAR 21) 30 (MAR 20) 28 (MAR 19) BUN 15 (MAR 22) 13 (MAR 21) 13 (MAR 20) 10 (MAR 19) Cr 0.60 (MAR 10) L 0.49 (MAR 09) 0.62 (MAR 08) 0.74 (MAR 07) Glu R 103 (MAR 22) 90 (MAR 21) 101 (MAR 20) H 141 (MAR 19) Ca L 8.3 (MAR 22) L 7.9 (MAR 21) 8.5 (MAR 20) 8.5 (MAR 19) Lactic 2.0 (MAR 19) C 3.2 (MAR [...] 17) 3.8 (MAR 13) Lipase 97 (MAR 18) 90 (MAR 17) Troponin C 0.923 (MAR 19) C 0.721 (MAR 18) <0.015 (MAR 17) <0.015 (MAR 17) Impression and Plan Hyponatremia: Na stable at 130.. 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 need Urine Osm. No salt restriction to diet. can drink up to 1200 a day FW HTN: BP stable. Hypokalemia: Better. replace as needed. Mg OK. should remain stable with increased po intake. Lactic Acidosis: better. Leukocytosis: improving S/P surgery for prolapse uterus. Elevated Trop: cardiology evaluated.. no sign of CAD Volume: Watch with Norton cath and good UOP. avoid loop diuretics as will make Na worse. Use tolvaptan if needed for fluid off. Dispo: OK to discharge today. F.U with PCP on Tuesday with repeat BMP. can see nephrology PRN Electronically signed by Bety, Darryl Conversion Circuit Breaker Supervisor Alirezaner at 10/01/2022 5:26 PM CDT documented in this encounter Plan of Treatment Upcoming Encounters Date Type Department Care Team (Late st Contact Info) Description 01/07/2025 1:45 PM EDT Office Visit [facility] [address] [place] [address] Tenzin Lozoya APRN [address] [facility] [address] [place] [address] 04/01/2025 2:00 PM EDT Appointment [facility] [address] [facility] [address] [place] [address] documented as of this encounter Visit Diagnoses Not on filedocumented in this encounter Care Teams Manual Arts Therapy Teacher Relationship Specialty Start Date End Date Js Jack MD [address] [facility] [address] [place] [address] PCP - General General Internal Medicine 02/28/23 documented as of this encounter
--- OUTSIDE RECORDS SUMMARY | 2024-12-07 14:45 | XMS_ITS | Encounter Summary ---
Author Organization [employer] Address [address] [place] [address] Care Team Providers Care Logistics Loss Prevention Manager Name Role Phone Guero Schmitt MD, John Primary Care Provider [phone] Encounter Details Date Type Department Care Team (Late st Contact Info) Description 03/16/2019 Transcribed Document [facility] Family Medicine [address] [place] [address] ProviderFrida MD [address] [place] [id number] Social History Tobacco Use Types Packs/Day Years Used Date Smoking Tobacco: Never Assessed Comments Unknown Sex and Gender Information Value Date Recorded Sex Assigned at Not on file Legal Sex Female 5:43 PM CDT Gender Identity Not on file Sexual Orientation Not on file documented as of this encounter Miscellaneous Notes * Cerner Conversion Note - Frida Morataya MD - 03/16/2019 7:53 AM CDT [facility] Main OR PACU Summary Primary Physician: Key SIMMONS MD-OBG Finalized Date/Time: 03/19/19 09:44:43 Pt. Name: BIANCA ZAZUETA /Sex: 1955 Female Med Rec #: [id number] Physician: Key SIMMONS MD-OBG Financial #: [id number] Pt. Type: I Room/Bed: 436/1 Admit/Disch: 03/16/19 09:12:00 - Institution: [facility] Main OR PACU Case Times Entry 1 In PACU I 03/16/19 09:17:00 Ready for PACU 10/04/19 10:10:00 Discharge Discharge from PACU 03/16/19 10:10:00 I Last Modified By: Khadra Beltran Rn 03/16/19 10:14:28 [facility] Main OR PACU Case Times Audit 03/16/19 10:14:28 Roll Setter: CARRIWILDER Modifier: CARRIEC 1 <*> Ready for PACU Discharge 03/16/19 09:41:00 1 <+> Discharge from PACU I Finalized By: Gina Holcomb, RN Document Signatures Signed By: Khadra Beltran Rn 03/16/19 10:14 Gina Holcomb RN 03/19/19 09:44 Unfinalized History Date/Time Username Reason for Unfinalizing Freetext Reason for Unfinalizing 03/19/19 09:44 ANICETO Chart Audit Electronically signed by Bety [facility] Conversion It Systems Manager Cerner at 10/01/2022 5:19 PM CDT documented in this encounter Plan of Treatment Upcoming Encounters Date Type Department Care Team (Late st Contact Info) Description 01/07/2025 1:45 PM EDT Office Visit [facility] [address] [place] [address] Tenzin Lozoya APRN [address] [facility] [address] [place] [address] 04/01/2025 2:00 PM EDT Appointment [facility] [address] [facility] [address] [address] [place] [address] documented as of this encounter Visit Diagnoses Not on filedocumented in this encounter Care Teams Logistics Loss Prevention Manager Relationship Specialty Start Date End Date Js Jack MD [address] [place], [place] [id number] PCP - General General Internal Medicine 02/28/23 documented as of this encounter
--- OUTSIDE RECORDS SUMMARY | 2024-12-07 14:45 | XMS_ITS | Encounter Summary ---
Author Organization [employer] Address [address] [place] [address] Care Team Providers Care Piano Case Maker Name Role Phone Guero Schmitt MD, John Primary Care Provider [phone] Encounter Details Date Type Department Care Team (Late st Contact Info) Description 03/21/2019 Transcribed Document [facility] [place] [address] ProviderFrida MD [address] [place] [id number] Social History Tobacco Use Types Packs/Day Years Used Date Smoking Tobacco: Never Assessed Comments Unknown Sex and Gender Information Value Date Recorded Sex Assigned at Not on file Legal Sex Female 5:43 PM CDT Gender Identity Not on file Sexual Orientation Not on file documented as of this encounter Miscellaneous Notes * Cerner Conversion Note - Frida Morataya MD - 03/21/2019 2:33 PM CDT Patient: BIANCA ZAZUETA Age: 63 years Sex: Female : 1955 Associated Diagnoses: None Author: DENICE NOVAK, PharmD Pharmacy verified patient's allergies and home medication list with the patient and pharmacy records and are as follows: Home Medications (7) Active Climara 0.05 mg/24 hours weekly transdermal film, extended release 1 Patch, Topical, hydroCHLOROthiazide 25 mg oral tablet 25 mg = 1 Tab, Oral, Daily hydrOXYzine hydrochloride 25 mg oral tablet 1-2 Tab, Oral, At Bedtime Linzess 145 mcg oral capsule 145 mcg = 1 Cap, Oral, Daily losartan 50 mg oral tablet 50 mg = 1 Tab, Oral, Daily Melatonin 5 mg oral tablet 5 mg = 1 Tab, PRN, Oral, Once a day (at bedtime) metoprolol succinate 50 mg oral capsule, extended release 50 mg = 1 Cap, Oral, QPM Allergies (3) Active Reaction Lunesta Swelling Nickel Rash Percocet 10 Nausea Thank you, Denice Novak, PharmD, MSCR, BCPS Electronically signed by Bety, [facility] Conversion Diesel Bus Mechanic Cerner at 10/01/2022 5:11 PM CDT documented in this encounter Plan of Treatment Upcoming Encounters Date Type Department Care Team (Late st Contact Info) Description 01/07/2025 1:45 PM EDT Office Visit [facility] [address] [facility] [address] [place] [address] Tenzin Lozoya APRN [address] [facility] [address] [place] [address] 04/01/2025 2:00 PM EDT Appointment [facility] [address] [place] [address] documented as of this encounter Visit Diagnoses Not on filedocumented in this encounter Care Teams Piano Case Maker Relationship Specialty Start Date End Date Js Jack MD [address] [facility] [address] [place] [address] PCP - General General Internal Medicine 02/28/23 documented as of this encounter
--- OUTSIDE RECORDS SUMMARY | 2024-12-07 14:45 | XMS_ITS | Encounter Summary ---
Author Organization [employer] Address [address] [place] [address] Care Team Providers Care Mechanical Design Engineer Facilities Name Role Phone Guero Schmitt MD, John Primary Care Provider [phone] Encounter Details Date Type Department Care Team (Late st Contact Info) Description 03/17/2019 Transcribed Document [facility] [place] [address] ProviderFrida MD [address] [place] [id number] Social History Tobacco Use Types Packs/Day Years Used Date Smoking Tobacco: Never Assessed Comments Unknown Sex and Gender Information Value Date Recorded Sex Assigned at Not on file Legal Sex Female 5:43 PM CDT Gender Identity Not on file Sexual Orientation Not on file documented as of this encounter Miscellaneous Notes * Cerner Conversion Note - Frida Morataya MD - 03/17/2019 6:06 PM CDT Patient: BIANCA ZAZUETA Age: 63 years Sex: Female : 1955 Associated Diagnoses: None Author: VICKY WILSON MD-CAR Chief Complaint chest pain History of Present Illness 63 YOWF this. Vaginal vault prolapse and rectocele surgery yesterday with robotic laparoscopic procedure with extensive lysis of the adhesions and salpingo oophorectomy bilaterally, the patient has developed constant pain since the procedure in her chest, no radiation, better with gas relief the pain is mild to moderate in intensity associated mild nausea, no shortness of breath. Patient states that she never had this pain before, it waxes and wanes but does not get completely relieved. The patient claims that her physician has checked her thoroughly in the past and has not found any heart issues with her, she has a calcium score of 2.0. The patient had a cardiac catheterization several years ago and she said it was normal and a stress test several years ago and she told me was normal. Review of Systems Constitutional: No fever, No chills, No sweats. Eye: No blurring, No double vision. Ear/Nose/Mouth/Throat: No nasal congestion, No sore throat. Respiratory: No shortness of breath, No cough, No sputum production. Cardiovascular: No palpitations, No bradycardia, No tachycardia, No peripheral edema, No syncope Chest pain: Midsternal. Gastrointestinal: Nausea, No vomiting, No diarrhea. Genitourinary: No dysuria, No hematuria. Hematology/Lymphatics: No bruising tendency, No bleeding tendency. Endocrine: No excessive thirst, No cold intolerance. Immunologic: Not immunocompromised, No recurrent fevers. Musculoskeletal: No neck pain, No joint pain, No muscle pain. Integumentary: No rash, No pruritus, No breakdown. Neurologic: No abnormal balance, No confusion. Psychiatric: No anxiety, No depression. Health Status Allergies: Allergic Reactions (Selected) Severity Not Documented Lunesta- Swelling. Nickel- Rash., Allergies (2) Active Reaction Lunesta Swelling Nickel Rash Current medications: (Selected) Inpatient Medications Ordered Azactam + Sodium Chloride 0.9% intravenous solution 100 mL: 2 Gram, 200 mL/Hr, IV Piggyback, Pre Procedure Carafate: 1 Gram, Oral, AC and at Bedtime Climara 0.05 mg/24 hours weekly transdermal film, extended release: 1 Patch, Topical, Colace: 100 mg, Oral, BID Linzess: 145 mcg, Oral, Daily Normal Saline 1,000 mL: 100 mL/Hr, IntraVENous Percocet 5/325 oral tablet: 1 Tab, Oral, Q3H, PRN: Pain (Moderate 4-6) Protonix: 40 mg, IV Push, BID Toprol-XL: 50 mg, Oral, At Bedtime Zofran: 4 mg, IV Push, Q4H, PRN: Nausea clindamycin: 900 mg, 50 mL, 100 mL/Hr, IV Piggyback, Pre Procedure hydrOXYzine hydrochloride: 25 mg, Oral, At Bedtime ibuprofen: 800 mg, Oral, Q8H, PRN: Pain (Mild 1-3) losartan: 50 mg, Oral, Daily promethazine: 6.25 mg, IV Push, Q6H, PRN: Nausea simethicone: 80 mg, Oral, Q4H, PRN: Gas Documented Medications Documented Climara 0.05 mg/24 hours weekly transdermal film, extended release: 1 Patch, Topical, , 0 Refill(s) Linzess 145 mcg oral capsule: 1 Cap, Oral, Daily, 0 Refill(s) Melatonin 5 mg oral tablet: 1 Tab, Oral, Once a day (at bedtime), PRN: as needed for insomnia, 0 Refill(s) hydrOXYzine hydrochloride 25 mg oral tablet: 1 Tab, Oral, At Bedtime, 0 Refill(s) hydroCHLOROthiazide 25 mg oral tablet: 1 Tab, Oral, Daily, 0 Refill(s) losartan 50 mg oral tablet: 1 Tab, Oral, Daily, 0 Refill(s) metoprolol succinate 50 mg oral capsule, extended release: 1 Cap, Oral, QPM, 0 Refill(s), Medications (16) Active Scheduled: (10) aztreonam + NaCl 0.9% 100 mL 2 Gram, IV Piggyback, Pre Procedure clindamycin/D5w 900 mg 50 mL, IV Piggyback, Pre Procedure docusate sodium 100 mg cap 100 mg 1 Cap, Oral, BID estradiol 0.05 mg/day 7 day patch 1 Patch, Topical, hydrOXYzine hcl 25 mg tab 25 mg 1 Tab, Oral, At Bedtime linaclotide 145 mcg cap 145 mcg 1 Cap, Oral, Daily losartan 50 mg tab 50 mg 1 Tab, Oral, Daily metoprolol succinate XL 50 mg tab 50 mg 1 Tab, Oral, At Bedtime pantoprazole 40 mg inj 40 mg, IV Push, BID sucralfate 1 g tab 1 Gram 1 Tab, Oral, AC and at Bedtime Continuous: (1) NaCl 0.9% 1,000 mL 1,000 mL, IntraVENous, 100 mL/Hr PRN: (5) acetaminophen/oxyCODONE 325/5 mg tab 1 Tab, Oral, Q3H ibuprofen 400 mg tab 800 mg 2 Tab, Oral, Q8H ondansetron 4 mg/2 mL inj 4 mg 2 mL, IV Push, Q4H promethazine 25 mg/1 mL inj 6.25 mg 0.25 mL, IV Push, Q6H simethicone 80 mg chew tab 80 mg 1 Tab, Oral, Q4H Problem list: Medical Anxiety / SNOMED CT 30519165 / Confirmed At risk for sleep apnea / IMO [id number] / Confirmed Meningioma / SNOMED CT 1522631212 / Confirmed Hypertension / SNOMED CT 7105412383 / Confirmed, Active Problems (4) Anxiety At risk for sleep apnea Hypertension Meningioma Histories Past Medical History: No active or resolved past medical history items have been selected or recorded., As noted above Family History: No family history items have been selected or recorded., Negative for CAD Procedure history: hysterectomy. lap michael. bilateral breast reduction/lift. cysto. lysis or lesions. BNO. Social History Social & Psychosocial Habits Alcohol 03/13/2019 Alcohol Use History, Social Habits Yes Number of Drinks per Day 2 Nutrition/Health 03/13/2019 Type of diet: Regular Substance Abuse 03/13/2019 Recreational Drug Use History No Tobacco 03/13/2019 Smoking Status Never (less than 100 in l Smokeless Tobacco Status Never . Physical Examination VS/Measurements Vital Signs/Vital Measures 03/17/2019 15:12 EDT Systolic Blood Pressure 174 mmHg HI Diastolic Blood Pressure 90 mmHg Mean Arterial Pressure (MAP)-BMDI 112 Temperature Source Oral Temperature Mode Fahrenheit Temperature, Fahrenheit 98.4 Deg F Clinical Temperature, C 36.9 Deg C Heart Rate Monitored 71 bpm Oxygen Saturation 99 % 03/17/2019 11:18 EDT Systolic Blood Pressure 187 mmHg HI Diastolic Blood Pressure 90 mmHg Mean Arterial Pressure (MAP)-BMDI 115 Temperature Source Oral Temperature Mode Fahrenheit Temperature, Fahrenheit 97.6 Deg F Clinical Temperature, C 36.4 Deg C Heart Rate Monitored 60 bpm Respiratory Rate 16 Breaths/Min Oxygen Saturation 96 % 03/17/2019 6:15 EDT Systolic Blood Pressure 134 mmHg Diastolic Blood Pressure 70 mmHg Mean Arterial Pressure (MAP)-BMDI 82 Temperature Source Oral Temperature Mode Fahrenheit Temperature, Fahrenheit 98.4 Deg F Clinical Temperature, C 36.9 Deg C Heart Rate Monitored 67 bpm Respiratory Rate 16 Breaths/Min Oxygen Saturation 95 % 03/17/2019 2:42 EDT Systolic Blood Pressure 112 mmHg Diastolic Blood Pressure 59 mmHg LOW Mean Arterial Pressure (MAP)-BMDI 72 Temperature, Fahrenheit 97.9 Deg F Clinical Temperature, C 36.6 Deg C Heart Rate Monitored 84 bpm Respiratory Rate 18 Breaths/Min Oxygen Saturation 97 % 03/17/2019 2:00 EDT Temperature Source Oral Temperature Mode Fahrenheit 03/16/2019 21:51 EDT Systolic Blood Pressure 145 mmHg HI Diastolic Blood Pressure 83 mmHg Mean Arterial Pressure (MAP)-BMDI 98 Temperature Source Oral Temperature Mode Fahrenheit Temperature, Fahrenheit 97.6 Deg F Clinical Temperature, C 36.4 Deg C Respiratory Rate 16 Breaths/Min 03/16/2019 21:00 EDT Heart Rate, Apical Not Done: Patient Refused (Not Done) Heart Rate Monitored 95 bpm Oxygen Saturation 98 % 03/16/2019 20:00 EDT Oxygen Therapy Mode Room air 03/16/2019 18:00 EDT Systolic Blood Pressure 140 mmHg Diastolic Blood Pressure 80 mmHg Temperature Source Oral Temperature Mode Fahrenheit Temperature, Fahrenheit 98.5 Deg F Clinical Temperature, C 36.9 Deg C Heart Rate Monitored 69 bpm Oxygen Saturation 98 % Oxygen Therapy Mode Room air 03/16/2019 11:00 EDT Oxygen Therapy Mode Nasal cannula Oxygen Flow Rate 2 Liter/Min 03/16/2019 10:05 EDT Systolic Blood Pressure 137 mmHg Diastolic Blood Pressure 86 mmHg Mean Arterial Pressure (MAP)-BMDI 110 Heart Rate Monitored 59 bpm LOW Oxygen Saturation 98 % 03/16/2019 9:50 EDT Systolic Blood Pressure 136 mmHg Diastolic Blood Pressure 74 mmHg Mean Arterial Pressure (MAP)-BMDI 117 Temperature Source Temporal artery scanning Temperature Mode Fahrenheit Temperature, Fahrenheit 97.2 Deg F Clinical Temperature, C 36.2 Deg C Heart Rate Monitored 54 bpm LOW Respiratory Rate 16 Breaths/Min Oxygen Saturation 95 % Oxygen Therapy Mode Nasal cannula Oxygen Flow Rate 2 Liter/Min 03/16/2019 9:45 EDT Systolic Blood Pressure 145 mmHg HI Diastolic Blood Pressure 80 mmHg Mean Arterial Pressure (MAP)-BMDI 119 Heart Rate Monitored 55 bpm LOW Respiratory Rate 17 Breaths/Min Oxygen Saturation 99 % 03/16/2019 9:40 EDT Systolic Blood Pressure 147 mmHg HI Diastolic Blood Pressure 78 mmHg Mean Arterial Pressure (MAP)-BMDI 119 Heart Rate Monitored 56 bpm LOW Respiratory Rate 20 Breaths/Min Oxygen Saturation 97 % 03/16/2019 9:35 EDT Systolic Blood Pressure 149 mmHg HI Diastolic Blood Pressure 79 mmHg Mean Arterial Pressure (MAP)-BMDI 109 Heart Rate Monitored 63 bpm Respiratory Rate 16 Breaths/Min Oxygen Saturation 97 % 03/16/2019 9:30 EDT Systolic Blood Pressure 151 mmHg HI Diastolic Blood Pressure 74 mmHg Mean Arterial Pressure (MAP)-BMDI 100 Heart Rate Monitored 65 bpm Respiratory Rate 18 Breaths/Min Oxygen Saturation 96 % 03/16/2019 9:25 EDT Systolic Blood Pressure 145 mmHg HI Diastolic Blood Pressure 82 mmHg Mean Arterial Pressure (MAP)-BMDI 110 Heart Rate Monitored 71 bpm Respiratory Rate 16 Breaths/Min Oxygen Saturation 97 % 03/16/2019 9:17 EDT Systolic Blood Pressure 140 mmHg Diastolic Blood Pressure 79 mmHg Mean Arterial Pressure (MAP)-BMDI 107 Temperature Source Temporal artery scanning Temperature Mode Fahrenheit Temperature, Fahrenheit 97.0 Deg F Clinical Temperature, C 36.1 Deg C Heart Rate Monitored 83 bpm Respiratory Rate 16 Breaths/Min Oxygen Saturation 98 % Oxygen Therapy Mode Nasal cannula Oxygen Flow Rate 2 Liter/Min 03/16/2019 6:32 EDT Blood Pressure Location Arm, right upper Blood Pressure Source Non-Invasive BP Device Systolic Blood Pressure 140 mmHg Diastolic Blood Pressure 82 mmHg Temperature Source Temporal artery scanning Temperature Mode Fahrenheit Temperature, Fahrenheit 97.1 Deg F Clinical Temperature, C 36.2 Deg C Pulse Method Pulse Oximetry Peripheral Pulse Rate 64 bpm Respiratory Rate 16 Breaths/Min Oxygen Saturation 96 % Oxygen Therapy Mode Room air Oxygen Therapy Mode Room air 03/16/2019 6:10 EDT Systolic Blood Pressure 140 mmHg Diastolic Blood Pressure 82 mmHg Temperature Source Temporal artery scanning Temperature Mode Fahrenheit Temperature, Fahrenheit 97.1 Deg F Clinical Temperature, C 36.2 Deg C Heart Rate Monitored 64 bpm Respiratory Rate 16 Breaths/Min Oxygen Saturation 96 % , Measurements from flowsheet : Measurements 03/16/2019 6:32 EDT Height Source Stated Height Entry Format [place] Height/Length, BHUTANESE (ft) 5 ft Height/Length BHUTANESE 5 Inch CLINICALHEIGHT 165.1 cm [place] Body Weight 57 kg Weight Source Standing scale Weight Entry Format [place] Weight [place] lb 164 lb CLINICALWEIGHT 74.55 kg Body Surface Area (BSA) 1.82 m2 Body Mass Index 27.3 kg/m2 HI 03/16/2019 6:20 EDT Height Source Stated Height Entry Format [place] Height/Length, BH[place] (ft) 5 ft Height/Length BHUTANESE 5 Inch CLINICALHEIGHT 165.1 cm [place] Body Weight 57 kg Weight Source Standing scale Weight Entry Format [place] Weight [place] lb 164 lb CLINICALWEIGHT 74.55 kg Body Surface Area (BSA) 1.82 m2 Body Mass Index 27.3 kg/m2 CA 03/16/2019 5:35 EDT Height Source Stated Height Entry Format [place] Height/Length, BHUT[place] (ft) 5 ft Height/Length BHUTANESE 5 Inch CLINICALHEIGHT 165.1 cm [place] Body Weight 57 kg Weight Source Standing scale Weight Entry Format [place] Weight [place] lb 164 lb CLINICALWEIGHT 74.55 kg Body Surface Area (BSA) 1.82 m2 Body Mass Index 27.3 kg/m2 HI , Vitals Signs (last 24 hrs) Last Charted Minimum Maximum Temp 98.4 (MAR 17:) 97.6 (MAR 17:18) 98.4 (MAR 17:) Mon HR 71 (MAR 17:12) 60 (MAR 17 11:18) 95 (MAR 16 21:00) Resp Rate 16 (MAR 17:18) 16 (MAR 16 21:51) 18 (MAR 17 02:42) SBP H 174 (MAR 17:12) 112 (MAR 17 02:42) H 187 (MAR 17:18) DBP 90 (MAR 17:12) L 59 (MAR 17:42) 90 (MAR 17:18) MAP 112 (MAR 17:) 72 (MAR 17 02:42) 115 (MAR 17:18) SpO2 99 (MAR 17:12) 95 (MAR 17:15) 99 (MAR 17 15:12) General: Alert and oriented, No acute distress. Eye: Pupils are equal, round and reactive to light, Normal conjunctiva. HENT: Normocephalic, Normal hearing, Oral mucosa is moist. Neck: Supple, Non-tender, No carotid bruit, No jugular venous distention. Respiratory: Lungs are clear to auscultation, Respirations are non-labored, Breath sounds are equal, Symmetrical chest wall expansion. Cardiovascular: Normal rate, Regular rhythm, No murmur, No gallop, Good pulses equal in all extremities, Normal peripheral perfusion, No edema. Gastrointestinal: Normal bowel sounds. Lymphatics: No lymphadenopathy neck, axilla, groin. Musculoskeletal: Normal range of motion, Normal strength. Integumentary: Warm, Dry, [place]. Neurologic: Alert, Oriented. Cognition and Speech: Oriented, Speech clear and coherent. Psychiatric: Cooperative, Appropriate mood & affect. Review / Management Results review: Labs (Last four charted values) WBC H 17.5 (MAR 17) H 20.3 (MAR 16) 7.1 (MAR 13) HB 11.2 (MAR 17) 12.6 (MAR 16) 12.9 (MAR 13) HCT 34.8 (MAR 17) 37.7 (MAR 16) 39.9 (MAR 13) Plt 272 (MAR 17) 285 (MAR 16) 354 (MAR 13) Na L 124 (MAR 17) L 124 (MAR 17) L 133 (MAR 13) K 4.2 (MAR 17) 4.2 (MAR 13) Cl L 89 (MAR 17) L 98 (MAR 13) CO2 27 (MAR 17) 30 (MAR 13) BUN 13 (MAR 17) 15 (MAR 13) Cr 0.65 (MAR 17) 0.75 (MAR 13) Glu R H 133 (MAR 17) 90 (MAR 13) Ca 8.5 (MAR 17) 8.6 (MAR 13) AST 19 (MAR 17) 19 (MAR 13) ALT 20 (MAR 17) 19 (MAR 13) ALK P 51 (MAR 17) 55 (MAR 13) T Bili 0.5 (MAR 17) 0.3 (MAR 13) PTN 6.7 (MAR 17) 7.1 (MAR 13) ALB 3.5 (MAR 17) 3.8 (MAR 13) Lipase 90 (MAR 17) Troponin <0.015 (MAR 17) <0.015 (MAR 17) . Impression and Plan Chest pain unspecified: The patient EKG and troponins are negative ??3. The etiology of chest pain could be related to the procedure. The patient however is advised to her underlying risk factors to have further workup done as outpatient. Patient told me that she will follow up with her family physician who is getting specialized in cardiology as well. Hypertension benign essential: Stable Hyponatremia: Per [facility]. Elevated WBC: Per [facility] Thank you for the consult , Please call if needed. documented in this encounter Plan of Treatment Upcoming Encounters Date Type Department Care Team (Late st Contact Info) Description 01/07/2025 1:45 PM EDT Office Visit [facility] [address] [place] [address] Tenzin Lozoya APRN [address] [place] [address] 04/01/2025 2:00 PM EDT Appointment [facility] [address] [place] [address] documented as of this encounter Visit Diagnoses Not on filedocumented in this encounter Care Teams Mechanical Design Engineer Facilities Relationship Specialty Start Date End Date Js Jack MD [address] [facility] [address] [place], [place] [id number] PCP - General General Internal Medicine 02/28/23 documented as of this encounter
--- OUTSIDE RECORDS SUMMARY | 2024-12-07 14:45 | XMS_ITS | Encounter Summary ---
Author Organization [employer] Address [address] [place] [address] Care Team Providers Care Hand Cloth Examiner Name Role Phone Guero Schmitt MD, John Primary Care Provider [phone] Encounter Details Date Type Department Care Team (Late st Contact Info) Description 03/17/2019 Transcribed Document [facility] [place] [address] [place] [address] ProviderFrida MD [address] [place] [id number] Social History Tobacco Use Types Packs/Day Years Used Date Smoking Tobacco: Never Assessed Comments Unknown Sex and Gender Information Value Date Recorded Sex Assigned at Not on file Legal Sex Female 5:43 PM CDT Gender Identity Not on file Sexual Orientation Not on file documented as of this encounter Miscellaneous Notes * Cerner Conversion Note - Frida Morataya MD - 03/17/2019 10:05 PM CDT Sepsis Screening Tool Entered On: 03/18/2019 3:48 EDT Performed On: 03/17/2019 22:05 EDT by Yari Olson RN Provider Notification Provider Notified of Concerns/Results : Critical value result Provider Notified of : Nurse concerns Critical Result Details : lactic acid 2.5 Critical Result Call Received From : Jaya Pepper - Lab Critical Result Read Back and Verified : Yes Provider Response : No new orders Provider Notified Name : REKHA COOK MD Provider Notified Time : 03/17/2019 22:15 EDT Yari Olson RN - 03/18/2019 3:45 EDT Chain of Command Initiated : No Yari Olson RN - 03/18/2019 3:56 EDT Rapid Response Team Called : Yari Willson RN - 03/18/2019 3:45 EDT Electronically signed by Darryl Albert Conversion Online Merchandising Specialist Cerner at 10/01/2022 5:19 PM CDT documented in this encounter Plan of Treatment Upcoming Encounters Date Type Department Care Team (Late st Contact Info) Description 01/07/2025 1:45 PM EDT Office Visit [facility] [address] [place] [address] Tenzin Lozoya APRN [address] [place] [address] 04/01/2025 2:00 PM EDT Appointment [facility] [address] [place] [address] documented as of this encounter Visit Diagnoses Not on filedocumented in this encounter Care Teams Hand Cloth Examiner Relationship Specialty Start Date End Date Js Jack MD [address] [facility] [address] [place] [address] PCP - General General Internal Medicine 02/28/23 documented as of this encounter
--- OUTSIDE RECORDS SUMMARY | 2024-12-07 14:45 | XMS_ITS | Encounter Summary ---
Author Organization [employer] Address [address] [place] [address] Care Team Providers Care Lamps Tester And Inspector Name Role Phone Guero Schmitt MD, John Primary Care Provider [phone] Encounter Details Date Type Department Care Team (Late st Contact Info) Description 03/21/[address] [facility] Family Medicine [address] [place] [address] ProviderFrida MD [address] [place] [address] [id number] Social History Tobacco Use Types Packs/Day Years Used Date Smoking Tobacco: Never Assessed Comments Unknown Sex and Gender Information Value Date Recorded Sex Assigned at Not on file Legal Sex Female 5:43 PM CDT Gender Identity Not on file Sexual Orientation Not on file documented as of this encounter Miscellaneous Notes * Cerner Conversion Note - Frida Morataya MD - 03/21/2019 12:34 PM CDT Patient: BIANCA ZAZUETA Age: 63 years Sex: Female : 1955 Associated Diagnoses: None Author: LOLA CLAYTON DO Basic Information egd with fluid in esophagus but no stricture pt still feeling upper abd bloating Review of Systems Constitutional: No fever, No chills. Respiratory: No shortness of breath, No cough. Genitourinary: No dysuria, No hematuria. Psychiatric: Not delusional, No hallucinations. Health Status Allergies: Allergic Reactions (Selected) Severity Not Documented Lunesta- Swelling. Nickel- Rash. Percocet - Percocet ., Allergies (3) Active Reaction Lunesta Swelling Nickel Rash Percocet Percocet Current medications: (Selected) Inpatient Medications Ordered Azactam + Sodium Chloride 0.9% intravenous solution 100 mL: 2 Gram, 200 mL/Hr, IV Piggyback, Pre Procedure Carafate: 1 Gram, Oral, AC and at Bedtime Climara 0.05 mg/24 hours weekly transdermal film, extended release: 1 Patch, Topical, Colace: 100 mg, Oral, BID Compazine: 5 mg, IV Push, Q6H, PRN: Nausea/Vomiting Linzess: 145 mcg, Oral, Daily Lovenox: 40 mg, SubCutaneous, [id number] Mylanta: 15 mL, Oral, Q4H, PRN: Abdominal Pain Neurontin: 100 mg, Oral, At Bedtime Normal Saline 1,000 mL: 100 mL/Hr, IntraVENous Protonix: 40 mg, IV Push, BID Toprol-XL: 50 mg, Oral, At Bedtime Zofran: 4 mg, IV Push, Q4H, PRN: Nausea Zosyn + Sodium Chloride 0.9% intravenous solution 100 mL: 3.375 Gram, 33.33 mL/Hr, IV Piggyback, Q6HInt acetaminophen-HYDROcodone 325 mg-5 mg oral tablet: 1 Tab, Oral, Q4H, PRN: Pain (Severe 7-10) aspirin: 81 mg, Oral, Daily atorvastatin: 40 mg, Oral, At Bedtime clindamycin: 900 mg, 50 mL, 100 mL/Hr, IV Piggyback, Pre Procedure hydrALAZINE: 10 mg, IV Push, Q6H, PRN: Hypertension hydrOXYzine hydrochloride: 25 mg, Oral, At Bedtime labetalol: 20 mg, IV Push, Q4H, PRN: Hypertension losartan: 50 mg, Oral, Daily potassium chloride 20 mEq/15 mL oral liquid: 30 mEq, 22.5 mL, Oral, BID promethazine: 6.25 mg, IV Push, Q6H, PRN: Nausea simethicone: 80 mg, Oral, TID Documented Medications Documented Climara 0.05 mg/24 hours [...] extended release: 1 Cap, Oral, QPM, 0 Refill(s) Problem list: Medical Anxiety / SNOMED CT 91791563 / Confirmed At risk for sleep apnea / IMO 53022114 / Confirmed Meningioma / SNOMED CT 3640059368 / Confirmed Hypertension / SNOMED CT 2657185900 / Confirmed, Active Problems (4) Anxiety At risk for sleep apnea Hypertension Meningioma Physical Examination VS/Measurements Vitals Signs (last 24 hrs) Last Charted Minimum Maximum Temp 98.9 (MAR 21 07:00) 98.9 (MAR 21 07:00) 99.2 (MAR 20 13:16) Apical HR 88 (MAR 20 23:38) 88 (MAR 20 19:37) 88 (MAR 20 19:37) Mon HR 85 (MAR 21 08:35) 77 (MAR 21 08:30) 111 (MAR 20 17:58) Resp Rate 20 (MAR 21 08:35) 16 (MAR 20 17:58) 20 (MAR 21 08:25) SBP 96 (MAR 21 08:35) L 87 (MAR 21 08:30) H 155 (MAR 20 17:58) DBP 63 (MAR 21 08:35) L 54 (MAR 21 08:30) H 100 (MAR 20 19:37) MAP 72 (MAR 21 06:17) 68 (MAR 20 22:08) 112 (MAR 20 17:58) SpO2 L 93 (MAR 21 08:35) L 90 (MAR 20 22:08) 98 (MAR 20 17:58) General: Alert and oriented, No acute distress. Eye: Pupils are equal, round and reactive to light, Extraocular movements are intact. HENT: Normocephalic, Oral mucosa is moist. Neck: Supple, No jugular venous distention. Respiratory: Respirations are non-labored, Breath sounds are equal, Symmetrical chest wall expansion. Cardiovascular: Normal rate, Regular rhythm. Gastrointestinal: Soft, Normal bowel sounds. Integumentary: Warm, Dry. Neurologic: Alert, Oriented. Psychiatric: Cooperative, Appropriate mood & affect. Review / Management Results review: Labs (Last four charted values) WBC H 12.7 (MAR 21) H 15.3 (MAR 20) H 18.5 (MAR 19) H 18.8 (MAR 18) HB L 9.9 (MAR 21) L 10.9 (MAR 20) 12.2 (MAR 19) 12.0 (MAR 18) HCT L 29.1 (MAR 21) L 32.6 (MAR 20) 36.1 (MAR 19) 36.0 (MAR 18) Plt 323 (MAR 21) 318 (MAR 08) H 374 (MAR 19) 335 (MAR 18) Na L 127 (MAR 21) L 127 (MAR 21) L 127 (MAR 20) L 126 (MAR 20) K L 3.2 (MAR 21) L 2.9 (MAR 20) L 3.1 (MAR 08) L 3.4 (MAR 19) Cl L 90 (MAR 21) L 88 (MAR 08) L 89 (MAR 07) L 87 (MAR 18) CO2 27 (MAR 21) 30 (MAR 20) 28 (MAR 19) 27 (MAR 06) BUN 13 (MAR 21) 13 (MAR 08) 10 (MAR 07) 10 (MAR 06) Cr L 0.49 (MAR 21) 0.62 (MAR 08) 0.74 (MAR 19) 0.60 (MAR 18) Glu R 90 (MAR 09) 101 (MAR 08) H 141 (MAR 07) H 131 (MAR 06) Ca L 7.9 (MAR 09) 8.5 (MAR 08) 8.5 (MAR 07) 8.9 (MAR 06) Lactic 2.0 (MAR 19) C 3.2 (MAR 06) C 2.3 (MAR 06) C 2.5 (MAR 05) AST 33 (MAR 07) 26 (OCT 06) 19 (OCT 05) 19 (OCT 01) ALT 28 (MAR 07) 21 (MAR 06) 20 (OCT 05) 19 (OCT ) ALK P 63 (MAR 19) 53 (OCT 06) 51 (OCT 05) 55 (MAR 13) T Bili 0.7 (MAR [...] 18) <0.015 (MAR 17) <0.015 (MAR 17) . Impression: Normal sized left ventricle. Normal left ventricular wall thickness. Normal left ventricular systolic function. Visually estimated ejection fraction is 60% +/- 5%. Normal diastolic function. No hemodynamically significant valvular heart disease. Reason For Exam Pleural Effusion REPORT PORTABLE CHEST HISTORY: Shortness of breath, bilateral effusions. COMPARISON: 03/17/2019. FINDINGS: A single portable radiograph of the chest was performed. There are cardiac electrodes overlying the chest wall. The heart is normal in size. The aortic contours are normal. There is evidence of old calcified granulomatous disease. There is pulmonary vascular congestion with perihilar edema. There is bilateral lower lobe atelectasis and minimal effusions. IMPRESSION: Pulmonary edema with small effusions and basilar airspace disease likely atelectasis. Reason For Exam Distention REPORT SINGLE VIEW ABDOMEN HISTORY: Abdominal distention COMPARISON: 03/17/2019 ABDOMEN: A single view of the abdomen demonstrates increased gas within the redundant transverse colon. There is no constipation. There are no abnormal calcifications. There is subcutaneous gas along the right lateral abdominal wall of unknown etiology. Recommend correlation with any history of surgery. There is leftward curvature of the lumbar spine. There is disc space narrowing. IMPRESSION: Persistent increased gas within a very redundant transverse colon. Findings suggest an ileus. Impression and Plan Elevated troponin presumed type 2 ischemia from uncontrolled HTN Has elevated troponin which cardiology believe not to be related to CAD- may be related to type 2 ischemia from uncontrolled hypertension. EKG without ST elevation or ischemic changes. Chest x-ray without acute findings CTA -ve for PE, showed bilateral effusion and atelectasis; pro bnp quite elevated, no lasix per nephrology 2D echo is wnl Uncontrolled HTN better cont ccb, should help with esophageal dysmotility hctz on hold due to hyponatremia esophageal dysmotility imipramine is poor choice given issues with urinary retention at present cont norvasc; could try nitrate if bp would allow post op ileus scheduele miralax; consider stimulant SIRS Lactic acidosis Leukocytosis, tachycardia. No definite infectious focus cultures are -ve thus far Started empiric zosyn on 03/18 , all cultures negative; dc zosyn Bilateral pleural effusion with generalized volume overload results of kub and cxr reviewed d/w Dr. Collado, hold on diuretic therapy possible tolvaptan trial Hyponatremia likely due to SIADH in the postop setting; some evidence volume overload with pleural effusions History of GERD. on PPI and Carafate. Vaginal prolapse status post surgery by Dr. Gastelum 03/16 s/p re-exploration dw gi encourage mobility need bm time 34mins Electronically signed by Interface, [facility] Conversion Carry In Worker Cerner at 10/01/2022 5:08 PM CDT documented in this encounter Plan of Treatment Upcoming Encounters Date Type Department Care Team (Late st Contact Info) Description 01/07/2025 1:45 PM EDT Office Visit [facility] [address] [place] [address] Tenzin Lozoya APRN [address] [place] [address] 04/01/2025 2:00 PM EDT Appointment [facility] [address] [place] [address] documented as of this encounter Visit Diagnoses Not on filedocumented in this encounter Care Teams Lamps Tester And Inspector Relationship Specialty Start Date End Date Js Jack MD [address] [place] [address] PCP - General General Internal Medicine 02/28/23 documented as of this encounter
--- OUTSIDE RECORDS SUMMARY | 2024-12-07 14:45 | XMS_ITS | Encounter Summary ---
Author Organization [facility] [employer] Address [address] [place] [address] Care Team Providers Care President + Publisher Name Role Phone Guero Schmitt MD, John Primary Care Provider [phone] Encounter Details Date Type Department Care Team (Late st Contact Info) Description 03/17/2019 Transcribed Document [facility] [place] [facility] [place] [address] ProviderFrida MD [address] [place] [id number] Social History Tobacco Use Types Packs/Day Years Used Date Smoking Tobacco: Never Assessed Comments Unknown Sex and Gender Information Value Date Recorded Sex Assigned at Not on file Legal Sex Female 5:43 PM CDT Gender Identity Not on file Sexual Orientation Not on file documented as of this encounter Miscellaneous Notes * Cerner Conversion Note - Frida Morataya MD - 03/17/2019 10:58 AM CDT Final Discharge Planning Entered On: 03/17/2019 10:58 EDT Performed On: 03/17/2019 10:58 EDT by ABDI TSANG Care Management-Ship Steward Final Discharge Planning Discharge Arrangements : Patient Post-Acute Information Patient Name: BIANCA ZAZUETA Gender: Female : [birth year] Age: 63 Years No Post-Acute Placement(s) Listed No Post-Acute Service(s) Listed No [place] Referral(s) Listed Discharge To Care Management : Home/Residential/[facility] or Self Care -01 TRINH, ABDI, Care Management-Ship Steward - 03/17/2019 10:58 EDT Final Narrative Note Final Narrative Note : no needs identified ABDI TSANG Care Management-Ship Steward - 03/17/2019 10:58 EDT documented in this encounter Plan of Treatment Upcoming Encounters Date Type Department Care Team (Late st Contact Info) Description 01/07/2025 1:45 PM EDT Office Visit [facility] [address] [place] [address] Tenzin Lozoya APRN [address] [place] [address] 04/01/2025 2:00 PM EDT Appointment [facility] [address] [place] [address] documented as of this encounter Visit Diagnoses Not on filedocumented in this encounter Care Teams President + Publisher Relationship Specialty Start Date End Date Js Jack MD [address] [facility] [address] [place], [place] [id number] PCP - General General Internal Medicine 02/28/23 documented as of this encounter
--- OUTSIDE RECORDS SUMMARY | 2024-12-07 14:45 | XMS_ITS | Encounter Summary ---
Author Organization [employer] Address [address] [place] [address] Care Team Providers Care Director Of Human Resources Name Role Phone Guero Schmitt MD, John Primary Care Provider Encounter Details Date Type Department Care Team (Late st Contact Info) Description 03/22/2019 Transcribed Document [facility] [place] Family Medicine [address] [place] [address] ProviderFrida MD [address] [place] [address] Social History Tobacco Use Types Packs/Day Years Used Date Smoking Tobacco: Never Assessed Comments Unknown Sex and Gender Information Value Date Recorded Sex Assigned at Not on file Legal Sex Female 5:43 PM CDT Gender Identity Not on file Sexual Orientation Not on file documented as of this encounter Miscellaneous Notes * Cerner Conversion Note - Frida ProviderMD - 03/22/2019 5:00 AM CDT Chart Check - Review Order Profile Entered On: 03/22/2019 5:45 EDT Performed On: 03/22/2019 5:00 EDT by Glenny Garcia, Rn Chart Check Powerplans Initiated/Discontinued as Appropriate : Yes All Active Orders Reviewed : Yes Glenny Garcia Rn - 03/22/2019 5:45 EDT documented in this encounter Plan of Treatment Upcoming Encounters Date Type Department Care Team (Late st Contact Info) Description 01/07/2025 1:45 PM EDT Office Visit [address] [place] [address] Tenzin Lozoya APRN [address] [place] [address] 04/01/2025 2:00 PM EDT Appointment [facility] [address] [place] [address] documented as of this encounter Visit Diagnoses Not on filedocumented in this encounter Care Teams Director Of Human Resources Relationship Specialty Start Date End Date Guero, Js Schmitt MD [address] [facility] [address] [place] [id number] PCP - General General Internal Medicine 02/28/23 documented as of this encounter
--- OUTSIDE RECORDS SUMMARY | 2024-12-07 14:45 | XMS_ITS | Encounter Summary ---
Author Organization [employer] Address [address] [place] [address] Care Team Providers Care Screen Tender Helper Name Role Phone Guero Schmitt MD, John Primary Care Provider [phone] Encounter Details Date Type Department Care Team (Late st Contact Info) Description 03/16/2019 Transcribed Document [facility] [place] [address] [place] [address] ProviderFrida MD [address] [place] [address] Social History Tobacco Use Types Packs/Day Years Used Date Smoking Tobacco: Never Assessed Comments Unknown Sex and Gender Information Value Date Recorded Sex Assigned at Not on file Legal Sex Female 5:43 PM CDT Gender Identity Not on file Sexual Orientation Not on file documented as of this encounter Miscellaneous Notes * Cerner Conversion Note - Frida Morataya MD - 03/16/2019 12:21 PM CDT Pain Assessment Entered On: 03/17/2019 18:28 EDT Performed On: 03/17/2019 12:27 EDT by Fay Johnson RN Intervention Information: acetaminophen-oxyCODONE Performed by CLARA BARNES RN on 03/17/2019 11:27:00 EDT acetaminophen-oxyCODONE,1Tab Oral,Pain (Moderate 4-6) Pain Assessment Pain Assessment : Follow-up assessment Pain Scale Goal : 3 Pain Scale Used : 0-10 Scale Fay Johnson RN - 03/17/2019 18:27 EDT Pain Scale Intensity : 3 Fay Johnson RN - 03/17/2019 18:27 EDT Image 4 - Images currently included in the form version of this document have not been included in the text rendition version of the form. documented in this encounter Plan of Treatment Upcoming Encounters Date Type Department Care Team (Late st Contact Info) Description 01/07/2025 1:45 PM EDT Office Visit [facility] [address] [place] [address] Tenzin Lozoya APRN [address] [place] [address] 04/01/2025 2:00 PM EDT Appointment [facility] [address] [place] [address] documented as of this encounter Visit Diagnoses Not on filedocumented in this encounter Care Teams Screen Tender Helper Relationship Specialty Start Date End Date Js Jack MD [address] [facility] [address] [place] [address] PCP - General General Internal Medicine 02/28/23 documented as of this encounter
--- OUTSIDE RECORDS SUMMARY | 2024-12-07 14:45 | XMS_ITS | Encounter Summary ---
Author Organization [facility] [employer] Address [address] [place] [address] Care Team Providers Care Electronic Instrument Trades Worker Name Role Phone Guero Schmitt MD, John Primary Care Provider [phone] Encounter Details Date Type Department Care Team (Late st Contact Info) Description 03/16/2019 Transcribed Document [facility] Family Medicine Formerly [facility] [address] ProviderFrida MD [address] [place] [address] [id number] Social History Tobacco Use Types Packs/Day Years [...] Morataya MD - 03/16/2019 7:53 AM CDT [facility] Main OR IntraOp Summary Primary Physician: Key SIMMONS MD-OBG Finalized Date/Time: 03/16/19 09:23:15 Pt. Name: BRIGIDO ZAZUETA /Sex: 1955 Female Med Rec #: [id number] Physician: Key SIMMONS MD-OBG Financial #: [id number] Pt. Type: O Room/Bed: EAS/2 Admit/Disch: 03/16/19 05:36:00 - [place] [facility] [place] Case Attendance Entry 1 Entry 2 Entry 3 Case Attendee GUILER, EDELVenus RENTERIA Stewart R, RN Ramsey, Regina, MD-OBG Supervisor [employer]ment [employer] Role Performed Surgeon/Proceduralist, Lion Tamer, First Scrub, First First Time In 03/16/19 07:36:00 03/16/19 07:36:00 03/16/19 07:36:00 Time Out 03/16/19 09:19:00 03/16/19 09:01:00 03/16/19 09:19:00 Procedure Laparoscopy Operative Laparoscopy Operative Laparoscopy Operative Robotic, Robotic, Robotic, Salpingo-Oophorectomy Salpingo-Oophorectomy Salpingo-Oophorectomy Laparoscopic, Vaginal Laparoscopic, Vaginal Laparoscopic, Vaginal Suspension, VAGINAL Suspension, VAGINAL Suspension, VAGINAL REPAIR POSTERIOR, REPAIR POSTERIOR, REPAIR POSTERIOR, Transvaginal Taping, Transvaginal Taping, Transvaginal Taping, Lysis Adhesions, Lysis Adhesions, Lysis Adhesions, Cystoscopy Adult Cystoscopy Adult Cystoscopy Adult Other Attendee Superficial Wound Closed By: Last Modified By: Konstantin Donovan RN Holliday, Stewart R, RN Holliday, Stewart R, RN 03/16/19 09:23:06 03/16/19 09:23:06 03/16/19 09:23:06 Entry 4 Entry 5 Entry 6 Case Attendee Genie Sandra HENDERSON, ROBERT TOM, GARNER, ANGELA, CRNA Supervisor [employer] RFNA Role Performed Scrub, Second SOCIAL WORK PROGRAM COORDINATOR INTERNAL GRINDING MACHINE OPERATOR/Nurse Account Executive Sales Representative Time In 03/16/19 07:36:00 03/16/19 07:36:00 03/16/19 07:36:00 Time Out 03/16/19 09:19:00 03/16/19 09:19:00 03/16/19 09:19:00 Procedure Laparoscopy Operative Laparoscopy Operative Laparoscopy Operative Robotic, Robotic, Robotic, Salpingo-Oophorectomy Salpingo-Oophorectomy Salpingo-Oophorectomy Laparoscopic, Vaginal Laparoscopic, Vaginal Laparoscopic, Vaginal Suspension, VAGINAL Suspension, VAGINAL Suspension, VAGINAL REPAIR POSTERIOR, REPAIR POSTERIOR, REPAIR POSTERIOR, Transvaginal Taping, Transvaginal Taping, Transvaginal Taping, Lysis Adhesions, Lysis Adhesions, Lysis Adhesions, Cystoscopy Adult Cystoscopy Adult Cystoscopy Adult Other Attendee Superficial Wound Closed By: Last Modified By: Konstantin Donovan RN Holliday, Stewart R, RN Holliday, Stewart R, RN 03/16/19 09:23:06 03/16/19 09:23:06 03/16/19 09:23:06 Entry 7 Case Attendee LEONOR AUSTIN RN Role Performed Lion Tamer, Second Time In 03/16/19 09:01:00 Time Out 03/16/19 09:19:00 Procedure Laparoscopy Operative Robotic, Salpingo-Oophorectomy Laparoscopic, Vaginal Suspension, VAGINAL REPAIR POSTERIOR, Lysis Adhesions, Cystoscopy Adult Other Attendee Superficial Wound Closed By: Last Modified By: Konstantin Donovan RN 03/16/19 09:23:06 [facility] IntraOp Case Attendance Audit 03/16/19 09:23:06 Head Of Store Operations: TAMIKO Modifier: HOLLIDSR 1 <+> Time Out 1 <*> Procedure Laparoscopy Operative Robotic, Salpingo-Oophorectomy Laparoscopic, Vaginal Suspension, VAGINAL REPAIR POSTERIOR, Transvaginal Taping, Lysis Adhesions, Cystoscopy Adult 2 <*> Procedure Laparoscopy Operative Robotic, Salpingo-Oophorectomy Laparoscopic, Vaginal Suspension, VAGINAL REPAIR POSTERIOR, Transvaginal Taping, Lysis Adhesions, Cystoscopy Adult 3 <+> Time Out 3 <*> Procedure Laparoscopy Operative Robotic, Salpingo-Oophorectomy Laparoscopic, Vaginal Suspension, VAGINAL REPAIR POSTERIOR, Transvaginal Taping, Lysis Adhesions, Cystoscopy Adult 4 <+> Time Out 4 <*> Procedure Laparoscopy Operative Robotic, Salpingo-Oophorectomy Laparoscopic, Vaginal Suspension, VAGINAL REPAIR POSTERIOR, Transvaginal Taping, Lysis Adhesions, Cystoscopy Adult 5 <+> Time Out 5 <*> Procedure Laparoscopy Operative Robotic, Salpingo-Oophorectomy Laparoscopic, Vaginal Suspension, VAGINAL REPAIR POSTERIOR, Transvaginal Taping, Lysis Adhesions, Cystoscopy Adult 6 <+> Time Out 6 <*> Procedure Laparoscopy Operative Robotic, Salpingo-Oophorectomy Laparoscopic, Vaginal Suspension, VAGINAL REPAIR POSTERIOR, Transvaginal Taping, Lysis Adhesions, Cystoscopy Adult 7 <+> Time Out 7 <*> Procedure Laparoscopy Operative Robotic, Salpingo-Oophorectomy Laparoscopic, Vaginal Suspension, VAGINAL REPAIR POSTERIOR, Lysis Adhesions, Cystoscopy Adult 03/16/19 09:05:35 Head Of Store Operations: ZAFARR Modifier: HOLLIDSR 2 <+> Time Out 2 <*> Procedure Laparoscopy Operative Robotic, Salpingo-Oophorectomy Laparoscopic, Vaginal Suspension, VAGINAL REPAIR POSTERIOR, Transvaginal Taping, Lysis Adhesions, Cystoscopy Adult <+> 7 Case Attendee <+> 7 Role Performed <+> 7 Time In <+> 7 Procedure 03/16/19 08:23:03 Head Of Store Operations: ZAFARR Modifier: HOLLIDSR 1 <*> Procedure Laparoscopy Operative Robotic, Salpingo-Oophorectomy Laparoscopic, Vaginal Suspension, VAGINAL REPAIR POSTERIOR, Transvaginal Taping, Lysis Adhesions 2 <*> Procedure Laparoscopy Operative Robotic, Salpingo-Oophorectomy Laparoscopic, Vaginal Suspension, VAGINAL REPAIR POSTERIOR, Transvaginal Taping, Lysis Adhesions 3 <*> Procedure Laparoscopy Operative Robotic, Salpingo-Oophorectomy Laparoscopic, Vaginal Suspension, VAGINAL REPAIR POSTERIOR, Transvaginal Taping, Lysis Adhesions 4 <*> Procedure Laparoscopy Operative Robotic, Salpingo-Oophorectomy Laparoscopic, Vaginal Suspension, VAGINAL REPAIR POSTERIOR, Transvaginal Taping, Lysis Adhesions 5 <*> Procedure Laparoscopy Operative Robotic, Salpingo-Oophorectomy Laparoscopic, Vaginal Suspension, VAGINAL REPAIR POSTERIOR, Transvaginal Taping, Lysis Adhesions 6 <*> Procedure Laparoscopy Operative Robotic, Salpingo-Oophorectomy Laparoscopic, Vaginal Suspension, VAGINAL REPAIR POSTERIOR, Transvaginal Taping, Lysis Adhesions 03/16/19 08:10:10 Head Of Store Operations: SANTOSIDSR Modifier: HOLLIDSR 1 <+> Time In 1 <*> Procedure Laparoscopy Operative Robotic, Salpingo-Oophorectomy Laparoscopic, Vaginal Suspension, VAGINAL REPAIR POSTERIOR, Transvaginal Taping 2 <+> Time In 2 <*> Procedure Laparoscopy Operative Robotic, Salpingo-Oophorectomy Laparoscopic, Vaginal Suspension, VAGINAL REPAIR POSTERIOR, Transvaginal Taping 3 <+> Time In 3 <*> Procedure Laparoscopy Operative Robotic, Salpingo-Oophorectomy Laparoscopic, Vaginal Suspension, VAGINAL REPAIR POSTERIOR, Transvaginal Taping 4 <+> Time In 4 <*> Procedure Laparoscopy Operative Robotic, Salpingo-Oophorectomy Laparoscopic, Vaginal Suspension, VAGINAL REPAIR POSTERIOR, Transvaginal Taping 5 <+> Time In 5 <*> Procedure Laparoscopy Operative Robotic, Salpingo-Oophorectomy Laparoscopic, Vaginal Suspension, VAGINAL REPAIR POSTERIOR, Transvaginal Taping 6 <+> Time In 6 <*> Procedure Laparoscopy Operative Robotic, Salpingo-Oophorectomy Laparoscopic, Vaginal Suspension, VAGINAL REPAIR POSTERIOR, Transvaginal Taping [facility] IntraOp Case Times Entry 1 Patient In Room Time 03/16/19 07:36:00 Out Room Time 03/16/19 09:19:00 Anesthesia Start Time 03/16/19 07:36:00 Stop Time 03/16/19 09:19:00 Anesthesia Ready 03/16/19 07:36:00 Surgery / Procedure Times Start Time 03/16/19 07:53:00 Stop Time 03/16/19 09:10:00 Last Modified By: Konstantin Donovan RN 03/16/19 09:23:05 [facility] IntraOp Case Times Audit 03/16/19 09:23:05 Head Of Store Operations: TAMIKO Modifier: HOLLIDSR <+> 1 Out Room Time <+> 1 Stop Time <+> 1 Stop Time 03/16/19 07:53:38 Head Of Store Operations: SANTOSIDSR Modifier: HOLLIDSR <+> 1 Start Time [facility] IntraOp Cautery Entry 1 ESU Identification Cautery Type Monopolar ESU ID Number [id number] ID Type Hospital Number Cautery Settings Cut Setting 0 Coag Setting 30 ESU Grounding Pad Ground Pad Type Adult Grounding Pad Konstantin Donovan RN Applied By Grounding Pad Site Intact Skin Condition Before Cautery Grounding Pad Site Intact Skin Condition After Cautery Last Modified By: Konstantin Donovan RN 03/16/19 07:55:34 [facility] IntraOp Communication Entry 1 Communication To Family/Significant other Comment procedure update Communication By Konstantin Donovan, RN Last Modified By: Konstantin Donovan RN 03/16/19 07:55:44 [facility] IntraOp Counts Verification Entry 1 Procedure Laparoscopy Operative Robotic, Salpingo-Oophorectomy Laparoscopic, Vaginal Suspension, VAGINAL REPAIR POSTERIOR, Transvaginal Taping, Lysis Adhesions, Cystoscopy Adult Count Info Count Type Sponge, Sharps, Miscellaneous Counts Verification Baseline/pre-procedure Sequence Counts Performed By Count Performed By Mary Hong, (Scrub) Supervisor Garment Manufacturing Count Performed By Konstantin Donovan RN (RN) Last Modified By: Konstantin Donovan RN 03/16/19 08:23:05 [facility] IntraOp Counts Verification Audit 03/16/19 08:23:05 Head Of Store Operations: ZAFARR Modifier: HOLLIDSR 1 <*> Procedure Laparoscopy Operative Robotic, Salpingo-Oophorectomy Laparoscopic, Vaginal Suspension, VAGINAL REPAIR POSTERIOR, Transvaginal Taping, Lysis Adhesions 03/16/19 08:10:12 Head Of Store Operations: ZAFARR Modifier: HOLLIDSR 1 <*> Procedure Laparoscopy Operative Robotic, Salpingo-Oophorectomy Laparoscopic, Vaginal Suspension, VAGINAL REPAIR POSTERIOR, Transvaginal Taping [facility] IntraOp Counts Final Entry 1 Procedure Laparoscopy Operative Robotic, Salpingo-Oophorectomy Laparoscopic, Vaginal Suspension, VAGINAL REPAIR POSTERIOR, Transvaginal Taping, Lysis Adhesions, Cystoscopy Adult Final Count Info Count Type Sponge, Sharps, Miscellaneous Counts Verification Skin Closure/end of Sequence procedure Count Results Correct, surgeon notified Counts Performed By Count Performed By Mary Hong, (Scrub) Supervisor Garment Manufacturing Count Performed By LEONOR AUSTIN RN (RN) Last Modified By: Konstantin Donovan RN 03/16/19 09:05:49 [facility] IntraOp Counts Final Audit 03/16/19 09:05:49 Head Of Store Operations: ZAFARR Modifier: HOLLIDSR 1 <*> Procedure Laparoscopy Operative Robotic, Salpingo-Oophorectomy Laparoscopic, Vaginal Suspension, VAGINAL REPAIR POSTERIOR, Transvaginal Taping, Lysis Adhesions, Cystoscopy Adult 1 <*> Count Performed By (Scrub) Genie Sandra Supervisor Garment Manufacturing 1 <*> Count Performed By (RN) Konstantin Donovan RN 1 <+> Counts Verification Sequence 03/16/19 08:23:06 Head Of Store Operations: ZAFARR Modifier: HOLLIDSR 1 <*> Procedure Laparoscopy Operative Robotic, Salpingo-Oophorectomy Laparoscopic, Vaginal Suspension, VAGINAL REPAIR POSTERIOR, Transvaginal Taping, Lysis Adhesions [facility] IntraOp Cultures and Spec Summary Entry 1 Cultrures and Specimens Specimen Ordered: Yes Test(s) Routine/Path-Lab Requested/Final Disposition Last Modified By: Konstantin Donovan RN 03/16/19 07:55:25 [facility] IntraOp Delays Entry 1 Delay Reason Other Duration 6 Minute(s) Comment Patient and family had questions Last Modified By: Konstantin Donovan RN 03/16/19 08:26:11 [facility] IntraOp Departure from OR Entry 1 Integumentary Assessment Transfer/Handoff Transfer to PACU Phase I Post-op Transport Stretcher/Jordyn Via Patient Transport Konstantin Donovan, Accompanied by RN, KERRY MCCRACKEN CRNA Last Modified By: Konstantin Donovan RN 03/16/19 07:40:20 [facility] IntraOp Dressing and Packing Entry 1 Type Dressing Location ABDOMEN Wound Dressing Item 2x2's, Skin adhesive, Steristrip Last Modified By: Konstantin Donovan RN 03/16/19 07:27:35 [facility] IntraOp Fire Risk Assessment Entry 1 Fire Info Surgical Site or 0- No Incision Above the Xyphoid Open O2 Source 0- No (Mask or Cannula) Available Ignition 1- Yes (ESU, Laser, Light Source) Fire Risk 1 Assessment Score Fire Score Fire Risk Yes Assessment Complete Fire Risk Konstantin Donovan dusting and brushing machine operator Verified By Fire Risk 03/16/19 07:23:00 Assessment Verified Date/Time Fire Risk Last Modified By: Konstantin Donovan RN 03/16/19 07:23:48 [facility] IntraOp General Case [place] Polisher Operator 1 Case Information [place] [facility] [place] 1 Room Verified Yes Wound Class II - Clean-Contaminated Specialty SN Gynecology Anesthesia Type General ASA Class 3 Diagnosis Preop Diagnosis pelvic pain, ovarian cysts Postop Same As Preop Yes Postop Diagnosis pelvic pain, ovarian cysts Last Modified By: Konstantin Donovan RN 03/16/19 09:01:09 E IntraOp General Case Data Audit 03/16/19 09:01:09 Head Of Store Operations: TAMIKO Modifier: TAMIKO 1 <+> Postop Same As Preop 1 <*> Postop Diagnosis refer to MD notes [facility] IntraOp Implant Log Entry 1 Type Implant (Synthetic) Implant Log Implant Type Mesh Implant S [id number] Identification Description Implant Quantity 1 Implant [id number] Identification Lot Number Implant [place] Identification Sci:Urology/Gynecology Counterintelligence Agent Name: Implant [id number] Identification Catalog Number Implant Has an Yes Expiration Date Implant Expiration 10/11/21 Date Tissue Implant Last Modified By: Konstantin Donovan RN 03/16/19 08:34:07 E IntraOp Intraoperative Assessment Entry 1 Valid History / Yes Physical in Chart Preoperative Yes Checklist Reviewed/Evaluated Allergies Reviewed Yes Patient is Latex No Sensitive Isolation Not applicable Precautions Noted Skin Assessment Yes Verified Present Upon IVs Arrival to OR Last Modified By: Konstantin Donovan RN 03/16/19 07:27:01 [facility] IntraOp Intraoperative Equipment Entry 1 Equipment Equipment Other Intraop Monitoring Electrocardiogram Three lead placement (ECG) Electrode Placement Blood Pressure Non-Invasive BP Device Source Blood Pressure Arm, right upper Location Pulse Oximeter Hand, left Probe Site Antiembolic Devices Antiembolic Devices Sequential compression device, knee high Antiembolic Device Bilateral Location Scopes Photo/Video Documentation Last Modified By: Konstantin Donovan RN 03/16/19 07:27:12 [facility] IntraOp Medication Admin Entry 1 Entry 2 Medication/Irrigant Marcaine 0.25% w/ B & O suppository - epinephrine 1:200,000 [id number] 30ml vial - [id number] Combo Med List Time Administered Route of LOCAL Administration Dose Dose 266 Unit of Measure mg Volume Administered By Key SIMMONS GUILER, J MICHAEL, MD-OBG -OBG Procedure Irrigation Irrigant Volume In Irrigant Volume Out Last Modified By: Konstantin Donovan RN Holliday, Stewart R, RN 03/16/19 07:27:29 03/16/19 07:27:29 [facility] IntraOp Patient Positioning Entry 1 Procedure Salpingo-Oophorectomy Laparoscopic, Lysis Adhesions, Cystoscopy Adult Body Position Lithotomy Left Arm Position Tucked and padded at side Right Arm Position Tucked and padded at side Left Leg Position Secured in Leg Wells Right Leg Position Secured in Leg Wells Feet Uncrossed Yes Pressure Points Yes Checked Positioning Devices Stirrups/Leg Wells, Boot Positioned By Konstantin Donovan RN, KERRY MCCRACKEN CRNA, Key SIMMONS MD-OBG Position Verified Positioning Yes Verified by Anesthesia Positioning Yes Verified by Surgeon Last Modified By: Konstantin Donovan RN 03/16/19 08:23:05 [facility] IntraOp Patient Positioning Audit 03/16/19 08:23:05 Head Of Store Operations: TAMIKO Modifier: ZAFARR 1 <*> Procedure Salpingo-Oophorectomy Laparoscopic, Lysis Adhesions 03/16/19 08:10:12 Head Of Store Operations: TAMIKO Modifier: HOLLIDSR 1 <*> Procedure Salpingo-Oophorectomy Laparoscopic [facility] IntraOp Sign In Entry 1 Patient, Site, Yes Procedure Identified Surgical Consent Yes Confirmed Relevant Surgical Yes Documents Available Surgical Site N/A Marked by person performing procedure Anesthesia Machine Yes Check Completed Medication Checks Yes Completed Airway Difficult No Airway/Aspiration Risk Difficult Yes Airway/Aspiration Intervention Equipment Available Blood Loss Risk No Blood Loss No Intervention Equipment Prepared and Ready Hypothermia Risk Yes Warming Measures Yes Taken Last Modified By: Konstantin Donovan RN 03/16/19 07:16:47 [facility] Intra Op Sign Out Entry 1 RN Confirmation Surgical Yes Procedure(s) Identified Instrument, Sponge Yes and Sharps Counts Correct/Documented Equipment Problems N/A Documented Specimen Labeled Yes Correctly Urinary Catheter N/A Documented in IView Goins Patient Yes Recovery Concerns Reviewed with Anesthesia Provider, Surgeon and RN Goins Patient Yes Management Concerns Reviewed with Anesthesia Provider, Surgeon and RN Safety Checklist Yes Elements Complete? RN Sign Out Konstantin Donovan, RN Signature RN Sign Out 03/16/19 09:23:00 Signature Date/Time Plan of Care Outcome - Fire Risk OUTCOME STATEMENT: Goal met Patient is free from injury related to surgical fire Plan of Care Outcome - Pt Positioning OUTCOME STATEMENT: Goal met Absence of signs and symptoms of positioning injury. Plan of Care Outcome - Skin Prep OUTCOME STATEMENT: Goal met Intraoperative care is consistent with measures to prevent infection Plan of Care Outcome - Xray/Images OUTCOME STATEMENT: Goal met Absence of observable signs or symptoms of radiation injury Plan of Care Outcome - Counts OUTCOME STATEMENT: Goal met Absence of signs and symptoms of injury related to extraneous objects Last Modified By: Konstantin Donovan RN 03/16/19 09:23:13 [facility] Intra Op Sign Out Audit 03/16/19 09:23:13 Head Of Store Operations: TAMIKO Modifier: TAMIKO <+> 1 RN Sign Out Signature Date/Time [facility] IntraOp Skin Prep Entry 1 Procedure Salpingo-Oophorectomy Laparoscopic, Lysis Adhesions, Cystoscopy Adult Prescribed Yes Pre-Surgical Prep Completed Prep Area ABDOMEN, VAGINA Intraop Prep Prep Agents Chloraprep, Betadine solution Prep by Konstantin Donovan, RN Hair Removal Last Modified By: Konstantin Donovan RN 03/16/19 08:23:06 [facility] IntraOp Skin Prep Audit 03/16/19 08:23:06 Head Of Store Operations: TAMIKO Modifier: ZAFARR 1 <*> Procedure Salpingo-Oophorectomy Laparoscopic, Lysis Adhesions 03/16/19 08:10:13 Head Of Store Operations: TAMIKO Modifier: TAMIKO 1 <*> Procedure Salpingo-Oophorectomy Laparoscopic [facility] IntraOp Surgical Procedures Entry 1 Entry 2 Entry 3 Procedure Laparoscopy Operative Salpingo-Oophorectomy Vaginal Suspension Robotic Laparoscopic Modifiers Additional ROBOTIC DIAGNOSTIC Procedure LAPAROSCOPY; BILATERAL Description SALPINGO-OOPHORECTOMY; VAGINAL UTEROSACRAL SUSPENSION; POSTERIOR REPAIR; RETROPUBIC TVT, CYSTOSCOPY, DAYAN Primary Procedure Yes No No Primary Surgeon Key SIMMONS GUILER, J MICHAEL, GUILER, J MICHAEL, MD-OBG MD-OBG MD-OBG Start 03/16/19 07:53:00 03/16/19 07:53:00 03/16/19 07:53:00 Stop 03/16/19 09:10:00 03/16/19 09:10:00 03/16/19 09:10:00 Physician States Cecum Reached Anesthesia Type General General General Specialty SN Gynecology SN Gynecology SN Gynecology Wound Class I - Clean II - Clean-Contaminated II - Clean-Contaminated Last Modified By: Konstantin Donovan RN Holliday, Stewart R, RN Holliday, Stewart R, RN 03/16/19 09:23:08 03/16/19 09:23:08 03/16/19 09:23:08 Entry 4 Entry 5 Entry 6 Procedure VAGINAL REPAIR POSTERIOR Transvaginal Taping Lysis Adhesions Modifiers Additional Procedure Description Primary Procedure No No No Primary Surgeon Key SIMMONS GUILER, J MICHAEL, GUILER, J MICHAEL, MD-OBG MD-OBG MD-OBG Start 03/16/19 07:53:00 03/16/19 07:53:00 03/16/19 07:53:00 Stop 03/16/19 09:10:00 03/16/19 09:10:00 03/16/19 09:10:00 Physician States Cecum Reached Anesthesia Type General General General Specialty SN Gynecology SN Gynecology SN Gynecology Wound Class II - Clean-Contaminated II - Clean-Contaminated I - Clean Last Modified By: Konstantin Donovan RN Holliday, Stewart R, RN Holliday, Stewart R, RN 03/16/19 09:23:08 03/16/19 09:23:08 03/16/19 09:23:08 Entry 7 Procedure Cystoscopy Adult Modifiers Additional Procedure Description Primary Procedure No Primary Surgeon Key SIMMONS MD-OBG Start 03/16/19 07:53:00 Stop 03/16/19 09:10:00 Physician States Cecum Reached Anesthesia Type General Specialty SN Gynecology Wound Class II - Clean-Contaminated Last Modified By: Konstantin Donovan RN 03/16/19 09:23:08 [facility] IntraOp Surgical Procedures Audit 03/16/19 09:23:08 Head Of Store Operations: ZAFARR Modifier: HOLLIDSR <+> 1 Stop <+> 2 Stop <+> 3 Stop <+> 4 Stop <+> 5 Stop <+> 6 Stop <+> 7 Stop 03/16/19 08:56:18 Head Of Store Operations: HOLLIDSR Modifier: HOLLIDSR 1 <*> Procedure Laparoscopy Operative Robotic 1 <*> Additional Procedure Description ROBOTIC DIAGNOSTIC LAPAROSCOPY; BILATERAL SALPINGO-OOPHORECTOMY; VAGINAL UTEROSACRAL SUSPENSION; POSTERIOR REPAIR; RETROPUBIC TVT, CYSTOSCOPY 03/16/19 08:44:23 Head Of Store Operations: SANTOSIDSR Modifier: HOLLIDSR 1 <*> Procedure Laparoscopy Operative Robotic 1 <*> Additional Procedure Description ROBOTIC DIAGNOSTIC LAPAROSCOPY; BILATERAL SALPINGO-OOPHORECTOMY; VAGINAL UTEROSACRAL SUSPENSION; POSTERIOR REPAIR; RETROPUBIC TVT 03/16/19 08:25:38 Head Of Store Operations: SANTOSIDSR Modifier: HOLLIDSR <+> 7 Start 03/16/19 08:22:59 Head Of Store Operations: SANTOSIDSR Modifier: HOLLIDSR <+> 7 Procedure <+> 7 Primary Procedure <+> 7 Primary Surgeon <+> 7 Specialty <+> 7 Wound Class <+> 7 Anesthesia Type 03/16/19 08:18:01 Head Of Store Operations: SANTOSIDSR Modifier: HOLLIDSR <+> 6 Start [facility] IntraOp Time Out Entry 1 Procedure to be Laparoscopy Operative Performed Robotic, Salpingo-Oophorectomy Laparoscopic, Vaginal Suspension, VAGINAL REPAIR POSTERIOR, Transvaginal Taping, Lysis Adhesions, Cystoscopy Adult Time Out Time Out Pause Time 03/16/19 07:52:00 All activity Yes suspended (unless life threatening emergency) Team Verbally Correct patient Confirms Information identity, Correct side and site are marked, Consent form is present and accurate, Agreement on the procedure to be done, Correct patient position, Relevant images/results properly labeled/appropriately displayed, Confirm antibiotics have been administered, Confirm the skin prep has dried, Confirm prosthesis/implant/devic e is present, Performed in location of procedure after prepped/draped Antibiotic Yes Prophylaxis Administered Or In Progress Within the Last 60 Minutes Beta Devan N/A Administered Venous Yes Thromboembolism Prophylaxis Required Anticipated Critical Events Surgeon None expected Anesthesia Provider None expected Nursing Assures Sterility of instruments Essential Imaging Yes Labeled and Displayed Last Modified By: Konstantin Donovan RN 03/16/19 08:23:06 [facility]IC[facility] IntraOp Time Out Audit 03/16/19 08:23:06 Head Of Store Operations: ZAFARR Modifier: HOLLIDSR 1 <*> Procedure to be Performed Laparoscopy Operative Robotic, Salpingo-Oophorectomy Laparoscopic, Vaginal Suspension, VAGINAL REPAIR POSTERIOR, Transvaginal Taping, Lysis Adhesions 03/16/19 08:10:13 Head Of Store Operations: SANTOSIDSR Modifier: HOLLIDSR 1 <*> Procedure to be Performed Laparoscopy Operative Robotic, Salpingo-Oophorectomy Laparoscopic, Vaginal Suspension, VAGINAL REPAIR POSTERIOR, Transvaginal Taping Case Comments <None> Finalized By: Konstantin Donovan, RN Document Signatures Signed By: Konstantin Donovan RN 03/16/19 09:23 documented in this encounter Plan of Treatment Upcoming Encounters Date Type Department Care Team (Late st Contact Info) Description 01/07/2025 1:45 PM EDT Office Visit [facility] [address] [facility] [address] [place] [address] Tenzin Lozoya APRN [address] [place] [address] 04/01/2025 2:00 PM EDT Appointment [facility] [address] [facility] [address] [place] [address] documented as of this encounter Visit Diagnoses Not on filedocumented in this encounter Care Teams Electronic Instrument Trades Worker Relationship Specialty Start Date End Date Js Jack MD [address] [place] [address] PCP - General General Internal Medicine 02/28/23 documented as of this encounter
--- OUTSIDE RECORDS SUMMARY | 2024-12-07 14:45 | XMS_ITS | Clinical Summary ---
Author Organization Healthcare Address [address] [place] [address] Care Team Providers Care E Commerce Developer Name Role Phone Js Jack MD Primary Care Provider [phone] Family History Medical History Relation Name Comments Cardiac disorder Mother Other cancer Mother Diabetes Sister Relation Name Status Comments Mother Sister Social History Tobacco Use Types Packs/Day Years Used Date Smoking Tobacco: Never Alcohol Use Standard Drinks/Week Comments Yes 0 (1 standard drink = 0.6 oz pure alcohol) Alcoholic Drinks/day: Daily alcohol use Comments Unknown Sex and Gender Information Value Date Recorded Sex Assigned at Not on file Legal Sex Female 7:34 PM EDT Gender Identity Not on file Sexual Orientation Not on file Plan of Treatment Health Maintenance Due Date Last Done Comments Dental X-Ray: Bitewings 1955 Dental X-Ray: Full Mouth 1955 [facility]-Bone Density Scan 1955 [facility]-Depression Screening 1955 [facility]-/Child/Adol SDOH Screenings 1955 [facility]- SDOH Screenings 1972 [facility]-Adult SDOH Screenings 1972 [facility]-DTaP,Tdap,and Td Vaccines (1 - Tdap) 1973 Dental Oral Exam 04/14/1997 10/11/1996, 01/12/1994 Dental Prophylaxis 03/23/1998 09/20/1997, 0 10/11/1996, 12/30/1994, Additional history exists CT Colonography 1999 Colonoscopy 1999 FIT-DNA 1999 FIT 1999 FOBT 1999 Sigmoidoscopy 1999 [facility]-Colorectal Cancer Screening 1999 [facility]-Pneumococcal Vaccine: 50+ Years (1 of 1 - PCV) 2004 [facility]-Zoster Vaccines (1 of 2) 2004 ZWC-SOLKU-55 Vaccine (1 - season) 2024 [facility]-Influenza Vaccine (Season Ended) 2025 [facility]-RSV Vaccine: 60+ Years or (1 - 1-dose 75+ series) 2029 HPV Vaccines Aged Out No longer eligi ble based on patient's age to complete this topic [facility]-HIB Vaccines Aged Out No longer e ligible based on patient's age to complete this topic [facility]-Hepatitis A Vaccines Aged Out No longer eligible based on patient's age to complete this topic [facility]-IPV Vaccines Aged Out No longer e ligible based on patient's age to complete this topic [facility]-Rotavirus Vaccines Aged Out No lo nger eligible based on patient's age to complete this topic Procedures Procedure Name Priority Date/Time Associated Diagnosis Comments PROPHYLAXIS - ADULT Routine 09/20/1997 1 2:00 AM EDT PERIODIC ORAL EVALUATION - ESTABLISHED PATIENT Routine 10/11/1996 12:00 AM EDT from Last 3 Months or Most Recently Relevant to Health Maintenance Care Teams E Commerce Developer Relationship Specialty Start Date End Date Js Jack MD [address] [place] [address] PCP - General 10/24/20
--- OUTSIDE RECORDS SUMMARY | 2024-12-07 14:45 | XMS_ITS | Encounter Summary ---
Author Organization [employer] Address [address] [place] [address] Care Team Providers Care Commodity Trader Name Role Phone Guero Schmitt MD, John Primary Care Provider [phone] Encounter Details Date Type Department Care Team (Late st Contact Info) Description 04/03/2019 Transcribed Document [facility] Family Medicine [address] [place] [address] ProviderFrida MD [address] [place], [place] [id number] Social History Tobacco Use Types Packs/Day Years Used Date Smoking Tobacco: Never Assessed Comments Unknown Sex and Gender Information Value Date Recorded Sex Assigned at Not on file Legal Sex Female 5:43 PM CDT Gender Identity Not on file Sexual Orientation Not on file documented as of this encounter Miscellaneous Notes * Cerner Conversion Note - Frida Morataya MD - 04/03/2019 3:48 PM CDT UM Authorization Entered On: 04/03/2019 15:49 EDT Performed On: 04/03/2019 15:48 EDT by BEST IBANEZ RN Primary Insurance Authorization Authorization and Policy Numbers : Insurance 1 Health Plan: [employer] Policy Number: [id number] Authorization Number: Insurance Primary Name : [id number] Authorization Status-Primary : Denial - admission Authorization Number-Primary : [id number] Authorized Service Begin Date-Primary : 03/18/2019 EDT Authorization Comments-Primary : Called discussed case with [facility] she stated they do not allow reconsiderations. Only P2P and appeals. Dr. Crisostomo office has yet to return my numerous request for a P2P. Sent to appeals. Historical Authorization Comments-Primary : Comment 1: fax will not transmit. Called to Dr. Crisostomo office and left a VM. (BEST IBANEZ RN 04/02/2019 13:33) Comment 2: Found fax # for office [phone] and faxed denial. (BEST IBANEZ RN 04/02/2019 08:39) Comment 3: Called Dr. Crisostomo office to discuss denial-- Per Jordy she will give check with Dr. Crisostomo regarding completing P2P (BEST IBANEZ RN 03/30/2019 11:06) Comment 4: 03/28/[address] had [address] VM [address] Crisostomo office for P2P (BEST IBANEZ RN 03/30/2019 11:03) Comment 5: Faxed reconsideration clinicals to [facility]. (BEST IBANEZ RN 03/28/2019 13:18) Comment 6: Requested Received Date: 03/18/2019 11:05:00 AM Requested Days: 1 Start Date of Service: 03/16/2019 Authorized Days: 0 End Date of Service: 03/17/2019 Status: Denied (KIM HANNA RN-Utilization Review 03/28/2019 10:17) Comment 7: Uploaded clinicals to [facility] via [employer]. (LALO MESA, ZOHREH-Utilization Review 03/18/2019 10:16) BEST IBANEZ RN - 04/03/2019 15:48 EDT documented in this encounter Plan of Treatment Upcoming Encounters Date Type Department Care Team (Late st Contact Info) Description 01/07/2025 1:45 PM EDT Office Visit [facility] [address] [place] [address] Tenzin Lozoya APRN [address] [place] [address] 04/01/2025 2:00 PM EDT Appointment [address] [place] [address] documented as of this encounter Visit Diagnoses Not on filedocumented in this encounter Care Teams Commodity Trader Relationship Specialty Start Date End Date Js Jack MD [address] [facility] [address] [place], [place] [id number] PCP - General General Internal Medicine 02/28/23 documented as of this encounter
--- OUTSIDE RECORDS SUMMARY | 2024-12-07 14:45 | XMS_ITS | Encounter Summary ---
Author Organization [employer] Address [address] [place] [address] Care Team Providers Care Rat Farmer Name Role Phone Guero Schmitt MD, John Primary Care Provider [phone] Encounter Details Date Type Department Care Team (Late st Contact Info) Description 03/21/2019 Transcribed Document [facility] Family Medicine [address] [place] [address] ProviderFrida MD [address] [place] [address] Social History Tobacco Use Types Packs/Day [...] 8:16 AM CDT [facility] Summary Primary Physician: SAMEERA IRELAND MD-GAE Finalized Date/Time: 03/21/19 08:21:17 Pt. Name: BRIGIDO ZAZUETA /Sex: 1955 Female Med Rec #: [id number] Physician: Key SIMMONS MD-OBG Financial #: [id number] Pt. Type: I Room/Bed: [facility]/ Admit/Disch: 03/18/19 07:52:00 - Institution: [facility] - Case Attendance Entry 1 Entry 2 Entry 3 Case Attendee TAHIR IRELAND SHERRI L, ALIDA MURPHY TECH KAREN, MD-CHELI Role Performed Surgeon/Proceduralist, Derrick Engineer, First Scrub, First First Time In 03/21/19 08:10:00 03/21/19 08:10:00 03/21/19 08:10:00 Time Out 03/21/19 08:20:00 03/21/19 08:20:00 03/21/19 08:20:00 Procedure Esophagogastroduodenosco Esophagogastroduodenosco Esophagogastroduodenosco py py py Other Attendee Superficial Wound Closed By: Last Modified By: FRANK HARO, FRANK JONES, FRANK JONES RN 03/21/19 08:20:52 03/21/19 08:20:52 03/21/19 08:20:52 Entry 4 Case Attendee MANN ALEJANDRA MD Role Performed Anesthesiologist Time In 03/21/19 08:10:00 Time Out 03/21/19 08:20:00 Procedure Esophagogastroduodenosco py Other Attendee Superficial Wound Closed By: Last Modified By: FRANK HARO RN 03/21/19 08:20:52 [facility] - Case Attendance Audit 03/21/19 08:20:52 Cardiac Cath Lab Technologist: RAINER Modifier: MILLERSH 1 <+> Time Out 1 <*> Procedure Esophagogastroduodenoscopy 2 <+> Time Out 2 <*> Procedure Esophagogastroduodenoscopy 3 <+> Time Out 3 <*> Procedure Esophagogastroduodenoscopy 4 <+> Time Out 4 <*> Procedure Esophagogastroduodenoscopy 03/21/19 08:16:25 Cardiac Cath Lab Technologist: MILLERSH Modifier: MILLERSH <+> 1 Procedure 2 <*> Procedure Esophagogastroduodenoscopy 3 <*> Procedure Esophagogastroduodenoscopy 4 <*> Procedure Esophagogastroduodenoscopy [facility] - Case Times Entry 1 Patient In Room Time 03/21/19 08:10:00 Out Room Time 03/21/19 08:20:00 Anesthesia Start Time 03/21/19 08:10:00 Stop Time 03/21/19 08:18:00 Anesthesia Ready 03/21/19 08:10:00 Surgery / Procedure Times Start Time 03/21/19 08:16:00 Stop Time 03/21/19 08:18:00 Last Modified By: FRANK HARO RN 03/21/19 08:20:32 [facility] - Case Times Audit 03/21/19 08:20:32 Cardiac Cath Lab Technologist: RAINER Modifier: MILLERSH <+> 1 Out Room Time <+> 1 Stop Time <+> 1 Stop Time 03/21/19 08:16:31 Cardiac Cath Lab Technologist: RAINER Modifier: MILLERSH <+> 1 Start Time [facility] - Delays Entry 1 Delay Reason Other Duration 0 Minute(s) Comment NO DELAY Last Modified By: FRANK HARO RN 03/21/19 08:12:02 [facility] - Departure from OR Entry 1 Integumentary Assessment Integumentary WDL Assessment WDL Transfer/Handoff Transfer to PACU Phase I Handoff Method Bedside/Face to face Handoff Reported to YANETH WALLS RN Post-op Transport Stretcher/Gurney Via Patient Transport FRANK HARO RN Accompanied by Last Modified By: FRANK HARO RN 03/21/19 08:20:19 [facility] - Endoscopy Details Entry 1 Procedure Abdomen 03/21/19 08:00:00 Assessment D/T Radio Frequency Ablation Last Modified By: FRANK HARO RN 03/21/19 08:16:16 [facility] - Fire Risk Assessment Entry 1 Fire Info Surgical Site or 1- Yes Incision Above the Xyphoid Open O2 Source 1- Yes (Mask or Cannula) Available Ignition 1- Yes (ESU, Laser, Light Source) Fire Risk 3 Assessment Score Fire Score Fire Risk Yes Assessment Complete Fire Risk FRANK HARO RN Assessment Verified By Fire Risk 03/21/19 08:00:00 Assessment Verified Date/Time Fire Risk High Risk Protocol Yes Implemented Standard Fire Yes Safety Precautions Followed Last Modified By: FRANK HARO RN 03/21/19 08:16:45 [facility] - General Case Instrument Tech 1 Case Information OR Endo 01 [facility] Case Level 1 Room Verified Yes Wound Class II - Clean-Contaminated Specialty SN Gastroenterology Anesthesia Type MAC ASA Class 3 Diagnosis Preop Diagnosis abd pain Postop Same As Preop No Postop Diagnosis esophageal dismotility Last Modified By: FRANK HARO RN 03/21/19 08:19:31 [facility] - General Case Data Audit 03/21/19 08:19:31 Cardiac Cath Lab Technologist: RAINER Modifier: RAINER <+> 1 Postop Diagnosis [facility] - Intraoperative Assessment Entry 1 Handoff Report Rosalinda Morgan Rn Received from Handoff Reported to YANETH WALLS RN Handoff Method Bedside/Face to face Valid History / Yes Physical in Chart Preoperative Yes Checklist Reviewed/Evaluated Patient is Latex Yes, protocol initiated Sensitive Last Modified By: FRANK HARO RN 03/21/19 08:13:46 [facility] - Intraoperative Equipment Entry 1 Equipment Intraop Monitoring Electrocardiogram Three lead placement (ECG) Electrode Placement Blood Pressure Arm, left upper Location Pulse Oximeter Hand, right Probe Site Antiembolic Devices Scopes Flexible Endoscopes Gastroscope Used Scope Serial [id number] Number/Identificatio n Number Photo/Video Documentation Photo Yes Video No Last Modified By: FRANK HARO RN 03/21/19 08:16:03 [facility] - Patient Positioning Entry 1 Procedure Esophagogastroduodenosco py Body Position Lateral, right side up Left Arm Position Resting at side Right Arm Position Resting at side Left Leg Position Other Right Leg Position Other Position Comments Right leg over left leg uncrossed Feet Uncrossed Yes Pressure Points Yes Checked Positioned By FRANK HARO RN Position Verified Positioning Yes Verified by Surgeon Last Modified By: FRANK HARO RN 03/21/19 08:17:11 [facility] - Sign In Entry 1 Patient, Site, Yes Procedure Identified Surgical Consent Yes Confirmed Surgical Site N/A Marked by person performing procedure Airway Hypothermia Risk No Warming Measures Yes Taken Last Modified By: FRANK HARO RN 03/21/19 08:12:18 [facility] - Sign Out Entry 1 RN Confirmation Surgical Yes Procedure(s) Identified Instrument, Sponge N/A and Sharps Counts Correct/Documented Equipment Problems N/A Documented Specimen Labeled N/A Correctly Surgery Estimated 0 Blood Loss Urinary Catheter N/A Documented in [facility] Surgical Services 0 mL Urine Output Safety Checklist Yes Elements Complete? RN Sign Out FRANK HARO RN Signature RN Sign Out 03/21/19 08:20:00 Signature Date/Time Plan of Care Outcome - [...] of Care Outcome - Xray/Images OUTCOME STATEMENT: N/A Absence of observable signs or symptoms of radiation injury Plan of Care Outcome - Counts OUTCOME STATEMENT: N/A Absence of signs and symptoms of injury related to extraneous objects Last Modified By: FRANK HRAO RN 03/21/19 08:19:57 [facility] - Sign Out Audit 03/21/19 08:19:57 Cardiac Cath Lab Technologist: RAINER Modifier: MILLERSH <+> 1 RN Sign Out Signature Date/Time <+> 1 Urinary Catheter Documented in IView <+> 1 Surgical Services Urine Output [facility] - Surgical Procedures Entry 1 Procedure Esophagogastroduodenosco py Primary Procedure Yes Primary Surgeon SAMEERA IRELAND MD-CHELI Start 03/21/19 08:16:00 Stop 03/21/19 08:17:00 Anesthesia Type MAC Specialty SN Gastroenterology Wound Class II - Clean-Contaminated Last Modified By: FRANK HARO RN 03/21/19 08:18:00 [facility] - Surgical Procedures Audit 03/21/19 08:18:00 Cardiac Cath Lab Technologist: MILLERSH Modifier: MILLERSH 1 <*> Procedure Esophagogastroduodenoscopy 1 <+> Specialty 1 <+> Stop [facility] - Time Out Entry 1 Procedure to be Esophagogastroduodenosco Performed py Time Out Time Out Pause Time 03/21/19 08:12:00 All activity Yes suspended (unless life threatening emergency) Team Verbally Correct patient Confirms Information identity, Correct side and site are marked, Consent form is present and accurate, Agreement on the procedure to be done, Correct patient position, Relevant images/results properly labeled/appropriately displayed Antibiotic N/A Prophylaxis Administered Or In Progress Within the Last 60 Minutes Beta Devan N/A Administered Venous N/A Thromboembolism Prophylaxis Required Anticipated Critical Events Surgeon None expected Last Modified By: FRANK HARO RN 03/21/19 08:12:56 Case Comments <None> Finalized By: FRANK HARO RN Document Signatures Signed By: FRANK HARO RN 03/21/19 08:21 Electronically signed by Duke Albert Conversion Bibliographic Services Specialist Cerner at 10/01/2022 5:27 PM CDT documented in this encounter Plan of Treatment Upcoming Encounters Date Type Department Care Team (Late st Contact Info) Description 01/07/2025 1:45 PM EDT Office Visit [facility] [address] [facility] [address] [place] [address] Tenzin Lozoya APRN [address] [facility] [address] [place] [address] 04/01/2025 2:00 PM EDT Appointment [facility] [address] [facility] [address] [place] [address] documented as of this encounter Visit Diagnoses Not on filedocumented in this encounter Care Teams Rat Farmer Relationship Specialty Start Date End Date Js Jack MD [address] [facility] [address] [place] [address] PCP - General General Internal Medicine 02/28/23 documented as of this encounter
--- OUTSIDE RECORDS SUMMARY | 2024-12-07 14:45 | XMS_ITS | Encounter Summary ---
Author Organization [employer] Address [address] [place] [address] Care Team Providers Care Special Tax Auditor Name Role Phone Guero Schmitt MD, John Primary Care Provider [phone] Encounter Details Date Type Department Care Team (Late st Contact Info) Description 03/16/[address] [facility] Family Medicine [facility] [place] [address] ProviderFrida MD [address] [place] [address] Social History Tobacco Use Types Packs/Day Years Used Date Smoking Tobacco: Never Assessed Comments Unknown Sex and Gender Information Value Date Recorded Sex Assigned at Not on file Legal Sex Female 5:43 PM CDT Gender Identity Not on file Sexual Orientation Not on file documented as of this encounter Miscellaneous Notes * Cerner Conversion Note - Frida ProviderMD - 03/16/2019 6:32 AM CDT Pre Procedure Adult Entered On: 03/16/2019 6:35 EDT Performed On: 03/16/2019 6:32 EDT by LEONOR HALL RN Height and Weight, Clinical Dosing Height Source : Stated Height Entry Format : Tom Green Height, Feet : 5 ft(Converted to: 152 cm, 60 Inch) Height, Inches : 5 Inch(Converted to: 0 ft 5 Inch, 12.70 cm) Clinical Height : 165.1 cm Weight Source : Standing scale Weight Entry Format : Tom Green Clinical Dosing Weight : 74.55 kg Weight, Pounds : 164 lb Body Surface Area (BSA) : 1.82 m2 Body Mass Index : 27.3 kg/m2 (HI) Aurora Body Weight : 57 kg LEONOR HALL RN - 03/16/2019 6:32 EDT Health Histories Smoking Status : Never (less than 100 in lifetime; none in last 30 days) Smokeless Tobacco Status : Never LEONOR HALL RN - 03/16/2019 6:32 EDT Social History (As Of: 03/16/2019 06:35:42 EDT) Tobacco: Never (less than 100 in [...] (Last Updated: 03/13/2019 12:56:46 EDT by Aliya Powers RN) Infectious Disease History Infectious Disease History : None Isolation Needed : Standard Fever/Chills Last 48 Hours : No Travel To Regions with Travel Advisories : No Travel Outside [place] Within Last 30 Days : No Contact With Traveler to Advisory Region : No Tuberculosis Symptoms : None LEONOR HALL RN - 03/16/2019 6:32 EDT Anesthesia/Transfusion History Family History of Anesthesia Reaction : No prior transfusion(s) Transfusion History : Prior anesthesia without reaction Family History of Anesthesia Reaction : None LEONOR HALL RN - 03/16/2019 6:32 EDT Functional Assessment Living Situation : Home Patient Lives With : Spouse Persons Assisting Patient at Home : Spouse Current Daily Living Assistance : None Sensory Deficits : None Mobility Assistance Prior to Admission : Independent LOU Hx Falls Immediate/Within 3 Months : No Current Home Treatments : None Home Equipment : None LEONOR HALL RN - 03/16/2019 6:32 EDT Psychosocial History Do You Have a History of the Following? : Anxiety, Other: claustrophobia Currently in Unsafe Situation : No Tried to Harm Yourself in the Past? : No Thoughts of Harming/Killing Yourself : No LEONOR HALL RN - 03/16/2019 6:32 EDT Advance Directive Patient has Advance Directive *Q : No, patient refuses Advance Directive information LEONOR HALL RN - 03/16/2019 6:32 EDT Spiritual/Cultural Needs Any Spiritual/Cultural Needs or Requests : LEONOR Allison RN - 03/16/2019 6:32 EDT Teaching/Learning Assessment Barriers To Learning : None evident Individuals Taught : Patient Readiness to Learn : Cooperative Baseline Knowledge of Topic : Good Readiness to Learn : Explanation Learning Style Preferences Patient : Verbal explanation LEONOR HALL RN - 03/16/2019 6:32 EDT General Info Arrived From : Home Mode of Arrival on Unit : Ambulatory Patient Arrival Date/Time : 03/16/2019 5:40 EDT Legal Guardian : Spouse Want Family/Rep/Phys Notified of Admit : No Emergency Contact #1 : [place] Emergency Contact #1 Emergency Contact #1 Relationship : spouse Emergency Contact #2 : . Emergency Contact #2 Phone Number : . Emergency Contact #2 Relationship : . Information Obtained From : Patient Primary Language : Sierra Leonean Preferred Communication Mode : Verbal Communication Barrier : None Objects to Sharing Info w Family : LEONOR Allison RN - 03/16/2019 6:32 EDT Vital Measurements Temperature Source : Temporal artery scanning Temperature Mode : Fahrenheit Temperature, Fahrenheit : 97.1 Deg F Clinical Temperature, C : 36.2 Deg C Pulse Method : Pulse Oximetry Peripheral Pulse Rate : 64 bpm Respiratory Rate : 16 Breaths/Min Blood Pressure Location : Arm, right upper Blood Pressure Source : Non-Invasive BP Device Systolic Blood Pressure : 140 mmHg Diastolic Blood Pressure : 82 mmHg Oxygen Saturation : 96 % Oxygen Therapy Mode : Room air LEONOR HALL RN - 03/16/2019 6:32 EDT Sleep Apnea Risk Assmt Hx of [...] Sleep Apnea Risk Level Score : 4 LEONOR HALL RN - 03/16/2019 6:32 EDT Ramses Scale Ramses Sensory Perception : No impairment Ramses Moisture : Rarely moist Ramses Activity : Walks frequently Ramses Mobility : No limitation Ramses Nutrition : Excellent Ramses Friction and Shear : No apparent problem Ramses Score : 23 LEONOR HALL RN - 03/16/2019 6:32 EDT Oxygen Therapy Oxygen Therapy Mode : Room air LEONOR HALL RN - 03/16/2019 6:32 EDT Pain Assessment Pain Assessment : Initial assessment Pain Scale Used : 0-10 Scale LEONOR HALL RN - 03/16/2019 6:32 EDT Fall Risk Scales ABCs Fall Injury Risk Identification : None LOU Hx Falls Immediate/Within 3 Months : No Lou Secondary Diagnosis : No LOU Use of Ambulatory Aid : None LOU IV Therapy or IV Access : Yes Lou Gait/Transferring : Normal, bedrest, immobile Lou Mental Status : Oriented to own ability Lou Fall Risk Score : 20 LOU Fall Scale Risk Level : 0-24 Low Risk Orosi Fall Interventions : Bed in low position, Call device within reach, Hourly comfort/safety rounds, Non-slip footwear, Personal items within reach, Upper side-rails up, Wheels locked LEONOR HALL RN - 03/16/2019 6:32 EDT Fall Risk Education Grid Call light use : Verbalizes understanding Nonskid Footwear Use : Verbalizes understanding LEONOR HALL RN - 03/16/2019 6:32 EDT Barriers to Learning : None evident Individuals Taught : Patient Readiness to Learn : Cooperative Baseline Knowledge of Topic : Good Teaching Method : Explanation Learning Style Preferences Patient : Verbal explanation Teaching Evaluation : Verbalizes understanding LEONOR HALL RN - 03/16/2019 6:32 EDT Education Topics, Day of Surgery DayofSurgery Education Grid Anesthesia/Sedation : Verbalizes understanding IV's : Verbalizes understanding Medication Instructions : Verbalizes understanding Pain Management : Verbalizes understanding Plan of Care : Verbalizes understanding LEONOR HALL RN - 03/16/2019 6:32 EDT Valuables and Belongings Valuables and Belongings : Clothing, Personal devices, Personal items Clothing : Common streetwear Clothing Disposition : With family Personal Device Disposition : With family Personal Devices : Glasses Personal Items : Cell phone Personal Items Disposition : With family LEONOR HALL RN - 03/16/2019 6:32 EDT Pain Scale Intensity : 0 LEONOR HALL RN - 03/16/2019 6:32 EDT Image 4 - Images currently included in the form version of this document have not been included in the text rendition version of the form. documented in this encounter Plan of Treatment Upcoming Encounters Date Type Department Care Team (Late st Contact Info) Description 01/07/2025 1:45 PM EDT Office Visit [facility] [address] [place] [address] Tenzin Lozoya APRN [address] [place] [address] 04/01/2025 2:00 PM EDT Appointment [facility] [address] [place] [address] documented as of this encounter Visit Diagnoses Not on filedocumented in this encounter Care Teams Special Tax Auditor Relationship Specialty Start Date End Date Js Jack MD [address] [facility] [address] [place] [address] PCP - General General Internal Medicine 02/28/23 documented as of this encounter
--- OUTSIDE RECORDS SUMMARY | 2024-12-07 14:45 | XMS_ITS | Encounter Summary ---
Author Organization [employer] Address [address] [place] [address] Care Team Providers Care Crusher Setter Name Role Phone Guero Schmitt MD, John Primary Care Provider [phone] Encounter Details Date Type Department Care Team (Late st Contact Info) Description 03/22/2019 Transcribed Document [facility] [place] [facility] [place] [address] ProviderFrida MD [address] [place] [address] Social History Tobacco Use Types Packs/Day Years Used Date Smoking Tobacco: Never Assessed Comments Unknown Sex and Gender Information Value Date Recorded Sex Assigned at Not on file Legal Sex Female 5:43 PM CDT Gender Identity Not on file Sexual Orientation Not on file documented as of this encounter Miscellaneous Notes * Cerner Conversion Note - Frida Morataya MD - 03/22/2019 8:38 AM CDT Patient: BIANCA ZAZUETA Age: 63 years Sex: Female : 1955 Associated Diagnoses: None Author: ERIN PIERCE, AMITA Patient is overall feeling somewhat better. Tolerating small amounts of PO, although still complains of decreased appetite. No acute findings from EGD on 03/21. Continue PPI therapy and follow up with Dr. Amaya, patient's established GI physician. documented in this encounter Plan of Treatment Upcoming Encounters Date Type Department Care Team (Late st Contact Info) Description 01/07/2025 1:45 PM EDT Office Visit [facility] [address] [facility] [address] [place] [address] Tenzin Lozoya APRN [address] [place] [address] 04/01/2025 2:00 PM EDT Appointment [facility] [address] [facility] [address] [place] [address] documented as of this encounter Visit Diagnoses Not on filedocumented in this encounter Care Teams Crusher Setter Relationship Specialty Start Date End Date Guero, Js Schmitt MD [address] [facility] [address] [place] [address] PCP - General General Internal Medicine 02/28/23 documented as of this encounter
--- OUTSIDE RECORDS SUMMARY | 2024-12-07 14:45 | XMS_ITS | Encounter Summary ---
Author Organization [employer] Address [address] [place] [address] Care Team Providers Care Biodiesel Engineering Manager Name Role Phone Guero Schmitt MD, John Primary Care Provider [phone] Encounter Details Date Type Department Care Team (Late st Contact Info) Description 03/16/2019 Transcribed Document [facility] [place] [place] [address] ProviderFrida MD [address] [place] [address] [id number] Social History Tobacco Use Types Packs/Day Years [...] 03/16/2019 7:53 AM CDT FELIC[facility] Main OR PreOp Summary Primary Physician: Key SIMMONS MD-OBG Finalized Date/Time: 03/16/19 15:28:15 Pt. Name: BIANCA ZAZUETA /Sex: 1955 Female Med Rec #: [id number] Physician: Key SIMMONS MD-OBG Financial #: [id number] Pt. Type: O Room/Bed: 436/1 Admit/Disch: 03/16/19 05:36:00 - [place] [facility] Times Entry 1 In Preop 03/16/19 05:40:00 Ready for Holding n/a Room Patient Ready for 03/16/19 06:46:00 Surgery Patient Out of Preop 03/16/19 07:30:00 Patient Out of n/a Holding Room Last Modified By: Niurka Groves, Consumer Affairs Specialist-Nursing 03/16/19 15:28:13 FELICIA PreOp Case Times Audit 03/16/19 15:28:13 Cold Working Inspector: FLOYDSF Modifier: [id number] <+> 1 Patient Out of Preop 03/16/19 06:46:47 Cold Working Inspector: FLOYDSF Modifier: [email or web address] <+> 1 Patient Ready for Surgery Finalized By: Niurka Groves, Consumer Affairs Specialist-Nursing Document Signatures Signed By: Niurka Groves, Consumer Affairs Specialist-Nursing 03/16/19 15:28 documented in this encounter Plan of Treatment Upcoming Encounters Date Type Department Care Team (Late st Contact Info) Description 01/07/2025 1:45 PM EDT Office Visit [facility] [address] [place] [address] Tenzin Lozoya APRN [address] [place] [address] 04/01/2025 2:00 PM EDT Appointment [facility] [address] [place] [address] documented as of this encounter Visit Diagnoses Not on filedocumented in this encounter Care Teams Biodiesel Engineering Manager Relationship Specialty Start Date End Date Guero, Js Schmitt MD [address] [facility] [address] [place] [address] PCP - General General Internal Medicine 02/28/23 documented as of this encounter
--- OUTSIDE RECORDS SUMMARY | 2024-12-07 14:45 | XMS_ITS | Encounter Summary ---
Author Organization [employer] Address [address] [facility] [place] [address] Care Team Providers Care Events Assistant Name Role Phone Guero Schmitt MD, John Primary Care Provider [phone] Encounter Details Date Type Department Care Team (Late st Contact Info) Description 04/02/2019 Transcribed Document [facility] [place] Family Medicine [address] [place] [address] ProviderFrida MD [address] [place] [address] Social History Tobacco Use Types Packs/Day Years Used Date Smoking Tobacco: Never Assessed Comments Unknown Sex and Gender Information Value Date Recorded Sex Assigned at Not on file Legal Sex Female 5:43 PM CDT Gender Identity Not on file Sexual Orientation Not on file documented as of this encounter Miscellaneous Notes * Cerner Conversion Note - Frida Morataya MD - 04/02/2019 1:33 PM CDT UM Authorization Entered On: 04/02/2019 13:35 EDT Performed On: 04/02/2019 13:33 EDT by BEST IBANEZ RN Primary Insurance Authorization Authorization and Policy Numbers : Insurance 1 Health Plan: [employer] Policy Number: [id number] Authorization Number: Insurance Primary Name : [facility] [id number] Authorization Status-Primary : Denial - admission Authorization Number-Primary : [id number] Authorized Service Begin Date-Primary : 03/18/2019 EDT Authorization Comments-Primary : fax will not transmit. Called to Dr. Crisostomo office and left a VM. Historical Authorization Comments-Primary : Comment 1: Found fax # for office [phone] and faxed denial. (BEST IBANEZ RN 04/02/2019 08:39) Comment 2: Called Dr. Crisostomo office to discuss denial-- Per Jordy she will give check with Dr. Crisostomo regarding completing P2P (BEST IBAENZ RN 03/30/2019 11:06) Comment 3: 03/28/[address] Crisostomo office for P2P (BEST IBANEZ RN 03/30/2019 11:03) Comment 4: Faxed reconsideration clinicals to [facility]. (BEST IBANEZ RN 03/28/2019 13:18) Comment 5: Requested Received Date: 03/18/2019 11:05:00 AM Requested Days: 1 Start Date of Service: 03/16/2019 Authorized Days: 0 End Date of Service: 03/17/2019 Status: Denied (KIM HANNA RN-Utilization Review 03/28/2019 10:17) Comment 6: Uploaded clinicals to [facility] via [employer]. (LALO MESA, ZOHREH-Utilization Review 03/18/2019 10:16) BEST IBANEZ RN - 04/02/2019 13:33 EDT documented in this encounter Plan of Treatment Upcoming Encounters Date Type Department Care Team (Late st Contact Info) Description 01/07/2025 1:45 PM EDT Office Visit [facility] [address] [place] [address] Tenzin Lozoya APRN [address] [place] [address] 04/01/2025 2:00 PM EDT Appointment [facility] Breast [facility] [address] [place] [address] documented as of this encounter Visit Diagnoses Not on filedocumented in this encounter Care Teams Events Assistant Relationship Specialty Start Date End Date Js Jack MD [address] [place] [address] PCP - General General Internal Medicine 02/28/23 documented as of this encounter
--- OUTSIDE RECORDS SUMMARY | 2024-12-07 14:45 | XMS_ITS | Encounter Summary ---
Author Organization [employer] Address [address] [place] [address] Care Team Providers Care Licensed Insurance Sales Agent Name Role Phone Guero Schmitt MD, John Primary Care Provider [phone] Encounter Details Date Type Department Care Team (Late st Contact Info) Description 03/17/2019 Transcribed Document [facility] [place] [facility] [place] [address] ProviderFrida MD [address] [place] [address] Social History Tobacco Use Types Packs/Day Years Used Date Smoking Tobacco: Never Assessed Comments Unknown Sex and Gender Information Value Date Recorded Sex Assigned at Not on file Legal Sex Female 5:43 PM CDT Gender Identity Not on file Sexual Orientation Not on file documented as of this encounter Miscellaneous Notes * Cerner Conversion Note - Frida ProviderMD - 03/17/2019 2:00 AM CDT Music Mixer Details Entered On: 03/17/2019 8:46 EDT Performed On: 03/17/2019 2:00 EDT by Yari Olson, RN Order Details Transport Mode Order Detail : Wheelchair Isolation Precautions Order Detail : Standard Precautions Order Detail : 0 IV Order Detail : 1 Oxygen Order Detail : 1 Nurse Collect Order Detail : 0 Lift/Transfer : Moderate assist Central Line Order Detail : No Room Service : Appropriate Arterial Line : No Yari Olson, ZOHREH - 03/17/2019 8:46 EDT documented in this encounter Plan of Treatment Upcoming Encounters Date Type Department Care Team (Late st Contact Info) Description 01/07/2025 1:45 PM EDT Office Visit [facility] [address] [place] [address] Tenzin Lozoya APRN [address] [place] [address] 04/01/2025 2:00 PM EDT Appointment [facility] Breast [facility] [address] [place] [address] documented as of this encounter Visit Diagnoses Not on filedocumented in this encounter Care Teams Licensed Insurance Sales Agent Relationship Specialty Start Date End Date Guero, Js Schmitt MD [address] [facility] [address] [place] [employer], [place] [id number] PCP - General General Internal Medicine 02/28/23 documented as of this encounter
--- OUTSIDE RECORDS SUMMARY | 2024-12-07 14:45 | XMS_ITS | Encounter Summary ---
Author Organization [employer] Address [address] [place] [address] Care Team Providers Care Field Account Manager Name Role Phone Guero Schmitt MD, John Primary Care Provider Encounter Details Date Type Department Care Team (Late st Contact Info) Description 03/17/2019 Transcribed Document [facility] [place] [address] [place] [address] ProviderFrida MD [address] [place] [id number] Social History Tobacco Use Types Packs/Day Years Used Date Smoking Tobacco: Never Assessed Comments Unknown Sex and Gender Information Value Date Recorded Sex Assigned at Not on file Legal Sex Female 5:43 PM CDT Gender Identity Not on file Sexual Orientation Not on file documented as of this encounter Miscellaneous Notes * Cerner Conversion Note - Frida Morataya MD - 03/17/2019 2:58 PM CDT Consult Phone Call Documentation Entered On: 03/17/2019 15:19 EDT Performed On: 03/17/2019 14:58 EDT by GEORGIA BUSTAMANTE Phone Call for Consults Consult Phone Call/Page Attempt : First call Consult Reason : hyponatremia Physician Requested for Consult : JULIAN MONTGOMERY MD, MD Physician Covering for Consult : JULIAN MONTGOMERY MD, MD Date and Time Call Returned : 03/17/2019 15:19 EDT Physician Returning Call : JULIAN MONTGOMERY MD, MD TYE, CHERYL - 03/17/2019 15:18 EDT documented in this encounter Plan of Treatment Upcoming Encounters Date Type Department Care Team (Late st Contact Info) Description 01/07/2025 1:45 PM EDT Office Visit [facility] [address] [place] [address] Tenzin Lozoya APRN [address] [place] [address] 04/01/2025 2:00 PM EDT Appointment [facility] Breast [facility] [address] [place] [address] documented as of this encounter Visit Diagnoses Not on filedocumented in this encounter Care Teams Field Account Manager Relationship Specialty Start Date End Date Js Jack MD [address] [facility] [address] [place], [place] [address] PCP - General General Internal Medicine 02/28/23 documented as of this encounter
--- OUTSIDE RECORDS SUMMARY | 2024-12-07 14:45 | XMS_ITS | Encounter Summary ---
Author Organization [employer] Address [address] [place] [address] Care Team Providers Care Divinity Teacher Name Role Phone Guero Schmitt MD, John Primary Care Provider [phone] Encounter Details Date Type Department Care Team (Late st Contact Info) Description 03/17/2019 Transcribed Document [facility] [place] [address] ProviderFrida MD [address] [place] [id number] Social History Tobacco Use Types Packs/Day Years Used Date Smoking Tobacco: Never Assessed Comments Unknown Sex and Gender Information Value Date Recorded Sex Assigned at Not on file Legal Sex Female 5:43 PM CDT Gender Identity Not on file Sexual Orientation Not on file documented as of this encounter Miscellaneous Notes * Cerner Conversion Note - Frida Morataya MD - 03/17/2019 11:30 AM CDT Consult Phone Call Documentation Entered On: 03/17/2019 12:18 EDT Performed On: 03/17/2019 11:30 EDT by GEORGIA BUSTAMANTE Phone Call for Consults Consult Phone Call/Page Attempt : First call Physician Requested for Consult : WALE MARTEL MD-INT Physician Covering for Consult : JESSIE DAVIES MD Date and Time Call Returned : 03/17/2019 12:18 EDT Physician Returning Call : JESSIE DAVIES MD TYE, CHERYL - 03/17/2019 12:14 EDT Electronically signed by Bety [facility] Conversion Limousine And Hearse Upholsterer Cerner at 10/01/2022 5:16 PM CDT documented in this encounter Plan of Treatment Upcoming Encounters Date Type Department Care Team (Late st Contact Info) Description 01/07/2025 1:45 PM EDT Office Visit [facility] [address] [facility] [address] [place] [address] Tenzin Lozoya APRN [address] [place] [address] 04/01/2025 2:00 PM EDT Appointment [facility] Breast [facility] [address] [facility] [address] [place] [address] documented as of this encounter Visit Diagnoses Not on filedocumented in this encounter Care Teams Divinity Teacher Relationship Specialty Start Date End Date Js Jack MD [address] [facility] [address] [place], [place] [id number] PCP - General General Internal Medicine 02/28/23 documented as of this encounter
--- OUTSIDE RECORDS SUMMARY | 2024-12-07 14:45 | XMS_ITS | Encounter Summary ---
Author Organization [employer] Address [address] [place] [address] Care Team Providers Care Planer Chain Offbearer Name Role Phone Guero Schmitt MD, John Primary Care Provider [phone] Encounter Details Date Type Department Care Team (Late st Contact Info) Description 03/17/2019 Transcribed Document [facility] [place] [facility] [place] [address] ProviderFrida MD [address] [place] [address] Social History Tobacco Use Types Packs/Day Years Used Date Smoking Tobacco: Never Assessed Comments Unknown Sex and Gender Information Value Date Recorded Sex Assigned at Not on file Legal Sex Female 5:43 PM CDT Gender Identity Not on file Sexual Orientation Not on file documented as of this encounter Miscellaneous Notes * Cerner Conversion Note - Frida Morataya MD - 03/17/2019 2:56 PM CDT Consult Phone Call Documentation Entered On: 03/17/2019 15:22 EDT Performed On: 03/17/2019 14:56 EDT by GEORGIA BUSTAMANTE Phone Call for Consults Consult Phone Call/Page Attempt : First call Physician Requested for Consult : VICKY WILSON MD-CAR Physician Covering for Consult : VICKY WILSON MD-CAR Date and Time Call Returned : 03/17/2019 15:22 EDT Physician Returning Call : VICKY WILSON MD-CAR TYE, CHERYL - 03/17/2019 15:22 EDT Electronically signed by Darryl Albert Conversion Residential Air Sealing Technician Cerner at 10/01/2022 5:30 PM CDT documented in this encounter Plan of Treatment Upcoming Encounters Date Type Department Care Team (Late st Contact Info) Description 01/07/2025 1:45 PM EDT Office Visit [facility] [address] [place] [address] Tenzin Lozoya APRN [address] [facility] [address] [place] [address] 04/01/2025 2:00 PM EDT Appointment [facility] Breast [facility] [address] [facility] [address] [place] [address] documented as of this encounter Visit Diagnoses Not on filedocumented in this encounter Care Teams Planer Chain Offbearer Relationship Specialty Start Date End Date Js Jack MD [address] [facility] [address] [place], [place] [phone] PCP - General General Internal Medicine 02/28/23 documented as of this encounter
--- OUTSIDE RECORDS SUMMARY | 2024-12-07 14:46 | XMS_ITS | Encounter Summary ---
Author Organization [employer] Address [address] [place] [address] Care Team Providers Care Railroad Crossing Protection Maintainer Name Role Phone Guero Schmitt MD, John Primary Care Provider [phone] Encounter Details Date Type Department Care Team (Late st Contact Info) Description 03/18/2019 Transcribed Document [facility] [place] [address] [place] [address] ProviderFrida MD [address] [place] [address] Social History Tobacco Use Types Packs/Day Years Used Date Smoking Tobacco: Never Assessed Comments Unknown Sex and Gender Information Value Date Recorded Sex Assigned at Not on file Legal Sex Female 5:43 PM CDT Gender Identity Not on file Sexual Orientation Not on file documented as of this encounter Miscellaneous Notes * Cerner Conversion Note - Frida ProviderMD - 03/18/2019 5:00 AM CDT Pain Assessment Entered On: 03/18/2019 5:37 EDT Performed On: 03/18/2019 6:05 EDT by Yari Olson RN Intervention Information: lidocaine topical Performed by Yari Olson RN on 03/18/2019 05:05:00 EDT lidocaine topical,15mL Oral Pain Assessment Pain Assessment : Follow-up assessment Pain Scale Goal : 3 Pain Scale Used : 0-10 Scale Yari Olson RN - 03/18/2019 5:37 EDT Pain Scale Intensity : 2 Yari Olson RN - 03/18/2019 5:37 EDT Image 4 - Images currently included in the form version of this document have not been included in the text rendition version of the form. documented in this encounter Plan of Treatment Upcoming Encounters Date Type Department Care Team (Late st Contact Info) Description 01/07/2025 1:45 PM EDT Office Visit [facility] [address] [facility] [address] [place] [address] Tenzin Lozoya APRN [address] [facility] [address] [place] [address] 04/01/2025 2:00 PM EDT Appointment [facility] [address] [facility] [address] [place] [address] documented as of this encounter Visit Diagnoses Not on filedocumented in this encounter Care Teams Railroad Crossing Protection Maintainer Relationship Specialty Start Date End Date Js Jack MD [address] [facility] [address] [place], [place] [id number] PCP - General General Internal Medicine 02/28/23 documented as of this encounter
--- OUTSIDE RECORDS SUMMARY | 2024-12-07 14:46 | XMS_ITS | Data Portability ---
Author Organization [place] Mora / Peter Carmen Address [address] [place] [address] Care Team Providers Care Supervisor Special Effects Name Role Phone ANGEL LUIS MORA Primary Care Provider LIZZIE Beth Asset Protection Professional JOHN SIMMONS Apparel Sales Leader Key HORNE Environmental Geologist SOFIA HITCHCOCK Sleep Medicine HARDEEP BARNARD Neurosurgeon SANYA PRIETO Medical Surgery Nurse ENEDINA HOOVER Body Technician/Painter ZIGGY SALAZAR Pain Management Assessment No assessment recorded. Plan of Treatment Reminders Order Date Submit Date Provider Last Modified By Organization Details Last Modified Time Details Appointments [facility] -PRE- [facility]V ([facility] 60M 2024 10:30A M [facility] Not available Not available Not available MDVIP -60M MD YEH ESS 2024 11:00A M Angel Luis Mora MD, FACP Not available Not available Not available Lab BMP, serum or plasm a 2024 025 [place] [facility], [address], [address], [place], [address], 11/13/2024 06:15:20 urina lysis , dipst ick 2024 025 [facility], [address], [place], [address], 07/03/2024 13:49:12 urina lysis compl ete, refle x cultu re 2024 025 [place] [facility], [address], [address], [place], [address], 07/04/2024 07:11:26 Referral None recor ded. Procedures None recor ded. Surgeries None recor ded. Imaging DEXA - Inclu de FRAX 2023 024 [facility], [address], [address], [place], [address], 06/04/2024 12:11:50 Medication Orders hydro chlor othia zide 25 mg table t 2024 025 [place] [facility], [address] [place] [address] [place], [place], [id number], 10/17/2024 14:24:26 fexof enadi ne 180 mg table t [address]24 [email or web address] [place] [address] [facility]acy [facility], [address] [place] [address] [address] [place], [place], [id number], 08/31/2024 14:28:20 hydro chlor othia zide 12.5 mg table t 2024 025 [email or web address] [facility], [address] [place] [address] [address] [place], [place], [id number], 11/12/2024 15:08:04 dulox etine 60 mg capsu le,de layed relea se 2023 024 [id number], [address] [facility] [address] [place], [id number], 03/02/2024 14:44:18 estra diol 0.05 mg/24 hr weekl y trans derma l patch 2023 024 [id number], [address] [facility] [facility] [address], [place], [id number], 03/02/2024 14:44:18 metop rolol succi nuno ER 50 mg table t,ext ended relea se 24 hr 2023 024 [facility] #33513, [address] [facility] [facility] [address], [place], [id number], 03/02/2024 14:44:18 marielos zapin e 15 mg table t 2023 025 [place] [facility] #63274, [address] [facility] [address], [place], [id number], 11/12/2024 15:09:04 panto prazo le 40 mg table t,del ayed relea se 2023 024 [facility] #35384, [address] [facility] [address], [place], [id number], 03/02/2024 14:44:18 rosuv astat in 20 mg table t 2023 024 [facility] #03214, [address] [facility] [address], [place], [id number], 03/02/2024 14:44:18 amlod ipine 5 mg table t 2023 024 [facility] #[id number], [address] [facility] [address], [place], [id number], 03/02/2024 14:44:18 Patient TargetsNo targets recorded. Patient Instructions Encounter Date Encounter Id Patient Instructions Last Modified By Organization Details Last Modified Time 03/02/2024 [id number] You might consider discussing estrogen topically to the are for open to reduce risk of future infections Not available 03/02/2024 13:34:56 RSV verified-lz. Arrange CIMT Not available 03/02/2024 13:35:07 07/03/2024 [id number] We discussed several options including twice daily MiraLAX adding stool softener. Various fiber form such as Citrucel. Option of trying Linzess Not available 07/03/2024 13:17:57 08/30/2024 [id number] Brief follow-up in a few weeks plan primarily to monitor blood pressure Not available 08/30/2024 12:09:15 rsv verified-ldb [email or web address] Not available 08/29/2024 17:02:56 10/15/2024 [id number] Instead of Kerline, you might try Zyrtec or Xyzal. I do recommend large-volume saline irrigations (nasal) [id number] Not available 10/15/2024 16:50:11 rsv verified-ldb . Give lorazepam 0.5 mg #30 for occasional prn use [email or web address] Not available 10/15/2024 16:52:01 11/12/2024 [id number] Boo, CHRISTIANA, UDS also RSV [email or web address] Not available 11/09/2024 16:42:26 Reason for Referral None Reported. Results Created Date Observation Date Name Description Value Unit Range Abnormal Flag Note LastModifiedBy Organization Detail LastModifiedTime 02/14/20 24 02/15/2024 NMR LIPOP ROFIL E+LIP IDS LDL-P 783 nmol/ L <1000 Low < 1000 Moder ate 1000 - 1299 Borde rline -High 1300 - 1599 High 1600 - 2000 Very High > 2000 Not Available [facility] ([facility]) [address] [facility], [place], [address], 02/15/2024 17:10:06 02/14/20 24 02/15/2024 NMR LIPOP ROFIL E+LIP IDS LDL-C (nih calc) 71 mg/dL 0-99 Optim al < 100 Above optim al 100 - 129 Borde rline 130 - 159 High 160 - 189 Very high > 189 Not Available [facility] ([facility]) [address] [facility], [place], [address], 02/15/2024 17:10:06 02/14/20 24 02/15/2024 NMR LIPOP ROFIL E+LIP IDS HDL-C 102 mg/dL >39 Not Available [facility] ([facility]) [address] [facility], [place], [address], 02/15/2024 17:10:02/14/2002/15/2024 NMR LIPOP ROFIL E+LIP IDS triglyceride s 76 mg/dL 0-149 Not Available [facility]) [address] [facility], [place], [address], 02/15/2024 17:10:02/14/2002/15/2024 NMR LIPOP ROFIL E+LIP IDS cholesterol, total 187 mg/dL 100-19 9 Not Available [facility] ([facility]) [address] [place], [address], 02/15/2024 17:10:06 02/14/2002/15/2024 NMR LIPOP ROFIL E+LIP IDS HDL-P (total) 46.6 umol/ L >=30.5 Not Available [facility] ([facility]) [address] [facility], [place], [address], 02/15/2024 17:10:02/14/2002/15/2024 NMR LIPOP ROFIL E+LIP IDS small LDL-P <90 nmol/ L <=527 Not Available [facility] ([facility]) [address] [place], [address], 02/15/2024 17:10:02/14/2002/15/2024 NMR LIPOP ROFIL E+LIP IDS LDL size 21.1 nm >20.5 ----- ----- ----- ----- ----- ----- ----- ----- ----- ----- ----- --- INTER PRETA TIVE INFOR MATIO N PARTI ALL ARTHUR NTRAT ION AND [...] taken into accou nt. Not Available [facility] ([facility]) [address] [facility], [place], [address], 02/15/2024 17:10:06 02/14/20 24 02/15/2024 NMR LIPOP [...] eleanor asses sment . Not Available [facility] ([facility]) [address] [facility], [place], [address], 02/15/2024 17:10:06 02/14/20 24 02/15/2024 CBC WITH DIFFE RENTI AL/PL ATELE T WBC 6.3 x10e3 /uL 3.4-10 .8 normal Not Available [facility] ([facility]) [address] [place], [address], 02/15/2024 17:10:07 02/14/20 24 02/15/2024 CBC WITH DIFFE RENTI AL/PL ATELE T RBC 4.76 x10e6 /uL 3.77-5 .28 normal Not Available [facility] ([facility]) [address] [place], [address], 02/15/2024 17:10:07 02/14/20 24 02/15/2024 CBC WITH DIFFE RENTI AL/PL ATELE T hemoglobin 14.2 g/dL 11.1-1 5.9 normal Not Available [facility] ([facility]) [address] [place], [address], 02/15/2024 17:10:07 02/14/20 24 02/15/2024 CBC WITH DIFFE RENTI AL/PL ATELE T hematocrit 44.4 % 34.0-4 6.6 normal Not Available [facility] ([facility]) [address] [facility], [place], [address], 02/15/2024 17:10:07 02/14/20 24 02/15/2024 CBC WITH DIFFE RENTI AL/PL ATELE T MCV 93 fL 79-97 normal Not Available [facility] ([facility]) [address] [place], [address], 02/15/2024 17:10:07 02/14/2002/15/2024 CBC WITH DIFFE RENTI AL/PL ATELE T MCH 29.8 pg 26.6-3 3.0 normal Not Available [facility] ([facility]) [address] [place], [address], 02/15/2024 17:10:07 02/14/20 24 02/15/2024 CBC WITH DIFFE RENTI AL/PL ATELE T MCHC 32.0 g/dL 31.5-3 5.7 normal Not Available [facility] ([facility]) [address] [facility], [place], [address], 02/15/2024 17:10:07 02/14/20 24 02/15/2024 CBC WITH DIFFE RENTI AL/PL ATELE T RDW 12.4 % 11.7-1 5.4 Not Available [facility] ([facility]) [address] [facility], [place], [address], 02/15/2024 17:10:07 02/14/20 24 02/15/2024 CBC WITH DIFFE RENTI AL/PL ATELE T platelets 302 x10e3 /uL 150-45 0 normal Not Available [facility] ([facility]) [address] [facility], [place], [address], 02/15/2024 17:10:07 02/14/20 24 02/15/2024 CBC WITH DIFFE RENTI AL/PL ATELE T neutrophils 71 % not estab. normal Not Available [facility] ([facility]) [address] [facility], [place], [address], 02/15/2024 17:10:07 02/14/20 24 02/15/2024 CBC WITH DIFFE RENTI AL/PL ATELE T lymphs 18 % not estab. normal Not Available [facility] ([facility]) [address] [facility], [place], [address], 02/15/2024 17:10:07 02/14/20 24 02/15/2024 CBC WITH DIFFE RENTI AL/PL ATELE T monocytes 7 % not estab. normal Not Available [facility] ([facility]) [address] [facility], [place], [address], 02/15/2024 17:10:07 02/14/20 24 02/15/2024 CBC WITH DIFFE RENTI AL/PL ATELE T eos 2 % not estab. normal Not Available [facility] ([facility]) [address] [facility], [place], [address], 02/15/2024 17:10:07 02/14/20 24 02/15/2024 CBC WITH DIFFE RENTI AL/PL ATELE T basos 1 % not estab. normal Not Available [facility] ([facility]) [address] [facility], [place], [address], 02/15/2024 17:10:07 02/14/20 24 02/15/2024 CBC WITH DIFFE RENTI AL/PL ATELE T immature cells PSYCHIATRY INSTRUCTOR Not Available [facility] ([facility]) [address] [facility], [place], [address], 02/15/2024 17:10:07 02/14/20 24 02/15/2024 CBC WITH DIFFE RENTI AL/PL ATELE T neutrophils (absolute) 4.5 x10e3 /uL 1.4-7. 0 normal Not Available [facility] ([facility]) [address] [place], [address], 02/15/2024 17:10:07 02/14/20 24 02/15/2024 CBC WITH DIFFE RENTI AL/PL ATELE T lymphs (absolute) 1.1 x10e3 /uL 0.7-3. 1 normal Not Available [facility] ([facility]) [address] [place], [address], 02/15/2024 17:10:07 02/14/20 24 02/15/2024 CBC WITH DIFFE RENTI AL/PL ATELE T monocytes(ab solute) 0.5 x10e3 /uL 0.1-0. 9 normal Not Available [facility] ([facility]) [address] [facility], [place], [address], 02/15/2024 17:10:07 02/14/20 24 02/15/2024 CBC WITH DIFFE RENTI AL/PL ATELE T eos (absolute) 0.1 x10e3 /uL 0.0-0. 4 normal Not Available [facility] ([facility]) [address] [facility], [place], [address], 02/15/2024 17:10:07 02/14/20 24 02/15/2024 CBC WITH DIFFE RENTI AL/PL ATELE T baso (absolute) 0.0 x10e3 /uL 0.0-0. 2 normal Not Available [facility] ([facility]) [address] [facility], [place], [address], 02/15/2024 17:10:07 02/14/20 24 02/15/2024 CBC WITH DIFFE RENTI AL/PL ATELE T immature granulocytes 1 % not estab. Not Available [facility] ([facility]) [address] [facility], [place], [address], 02/15/2024 17:10:07 02/14/20 24 02/15/2024 CBC WITH DIFFE RENTI AL/PL ATELE T immature grans (abs) 0.0 x10e3 /uL 0.0-0. 1 Not Available [facility] ([facility]) [address] [facility], [place], [address], 02/15/2024 17:10:07 02/14/20 24 02/15/2024 CBC WITH DIFFE RENTI AL/PL ATELE T NRBC PSYCHIATRY INSTRUCTOR Not Available [facility] ([facility]) [address] [facility], [place], [address], 02/15/2024 17:10:07 02/14/20 24 02/15/2024 CBC WITH DIFFE RENTI AL/PL ATELE T hematology comments: PSYCHIATRY INSTRUCTOR Not Available [facility] ([facility]) [address] [facility], [place], [address], 02/15/2024 17:10:07 02/14/20 24 02/15/2024 COMP. METAB OLIC PANEL (14) glucose 82 mg/dL 70-99 normal Not Available [facility] ([facility]) [address] [facility] [place], [address], 02/15/2024 17:10:08 02/14/20 24 02/15/2024 COMP. METAB OLIC PANEL (14) BUN 14 mg/dL 8-27 normal Not Available [facility] ([facility]) [address] [facility] [place], [address], 02/15/2024 17:10:08 02/14/20 24 02/15/2024 COMP. METAB OLIC PANEL (14) creatinine 0.70 mg/dL 0.57-1 .00 normal Not Available [facility] ([facility]) [address] [facility], [place], [address], 02/15/2024 17:10:08 02/14/20 24 02/15/2024 COMP. METAB OLIC PANEL (14) eGFR 94 mL/mi n/1.7 3 >59 normal Not Available [facility] ([facility]) [address] [facility] [place], [address], 02/15/2024 17:10:08 02/14/20 24 02/15/2024 COMP. METAB OLIC PANEL (14) BUN/creatini ne ratio 20 12-28 normal Not Available [facility] ([facility]) [address] [place], [address], 02/15/2024 17:10:08 02/14/20 24 02/15/2024 COMP. METAB OLIC PANEL (14) sodium 138 mmol/ L 134-14 4 normal Not Available [facility] ([facility]) [address] [facility] [place], [address], 02/15/2024 17:10:08 02/14/20 24 02/15/2024 COMP. METAB OLIC PANEL (14) potassium 4.3 mmol/ L 3.5-5. 2 normal Not Available [facility] ([facility]) [address] [place], [address], 02/15/2024 17:10:08 02/14/20 24 02/15/2024 COMP. METAB OLIC PANEL (14) chloride 98 mmol/ L 96-106 normal Not Available [facility] ([facility]) [address] [place], [address], 02/15/2024 17:10:08 02/14/20 24 02/15/2024 COMP. METAB OLIC PANEL (14) carbon dioxide, total 27 mmol/ L 20-29 normal Not Available [facility] ([facility]) [address] [place], [address], 02/15/2024 17:10:08 02/14/20 24 02/15/2024 COMP. METAB OLIC PANEL (14) calcium 9.5 mg/dL 8.7-10 .3 normal Not Available [facility] ([facility]) [address] [place], [address], 02/15/2024 17:10:08 02/14/20 24 02/15/2024 COMP. METAB OLIC PANEL (14) protein, total 6.6 g/dL 6.0-8. 5 normal Not Available [facility] ([facility]) [address] [place], [address], 02/15/2024 17:10:08 02/14/20 24 02/15/2024 COMP. METAB OLIC PANEL (14) albumin 4.3 g/dL 3.9-4. 9 normal Not Available [facility] ([facility]) [address] [place], [address], 02/15/2024 17:10:08 02/14/20 24 02/15/2024 COMP. METAB OLIC PANEL (14) globulin, total 2.3 g/dL 1.5-4. 5 Not Available [facility] ([facility]) [address] [place], [address], 02/15/2024 17:10:08 02/14/20 24 02/15/2024 COMP. METAB OLIC PANEL (14) bilirubin, total 0.3 mg/dL 0.0-1. 2 normal Not Available [facility] ([facility]) [address] [facility] [place], [address], 02/15/2024 17:10:08 02/14/20 24 02/15/2024 COMP. METAB OLIC PANEL (14) alkaline phosphatase 65 IU/L 44-121 normal Not Available [facility]) [address] [place], [address], 02/15/2024 17:10:08 02/14/20 24 02/15/2024 COMP. METAB OLIC PANEL (14) AST (SGOT) 25 IU/L 0-40 normal Not Available [facility] ([facility]) [address] [place], [address], 02/15/2024 17:10:08 02/14/20 24 02/15/2024 COMP. METAB OLIC PANEL (14) ALT (SGPT) 20 IU/L 0-32 normal Not Available [facility] ([facility]) [address] [facility], [place], [address], 02/15/2024 17:10:08 02/14/20 24 02/15/2024 HEMOG LOBIN A1C hemoglobin A1C 5.6 % 4.8-5. 6 normal Predi abete s: 5.7 - 6.4 Diabe tori: >6.4 Glyce rivera contr ol for adult s with diabe tori: <7.0 Not Available [facility] ([facility]) [address] [place], [address], 02/15/2024 17:10:08 02/14/20 24 02/15/2024 TSH TSH 1.040 uIU/m L 0.450- 4.500 normal Not Available [facility] ([facility]) [address] [facility], [place], [address], 02/15/2024 17:10:09 02/14/20 24 02/15/2024 ORESTES TIN ferritin 72 NG/mL 15-150 normal Not Available [facility] ([facility]) [address] [facility], [place], [address], 02/15/2024 17:10:09 02/14/20 24 02/14/2024 F2-IS OPROS TANE/ CREAT ININE F2-isoprosta sajan/creatini ne 0.65 NG/mg _cr <0.86 Pound ivette urina ry F2-Is opros tanes are assoc iated with an incre ased relat renea risk of coron keerthi heart disea se (CHD) (1). (Refe rence : 1-Matt ruddy love et al. Circu latio n. 2004; 109: 843-8 48). This test is perfo rmed by a Magda meneses Chrom atogr aphy- Tande m Mass Spect romet ry (LC/M S/MS) metho d. This test was devel oped and its perfo rmanc e taryn cteri stics deter mined by the [facility] It has not been clear ed or appro matthieu by the U.S. FDA. The [facility] is regul ated under Clini eleanor Labor atory Impro vemen t Amend ments (CLIA ) as quali fied to perfo rm high- compl exity testi ng. This test is used for clini eleanor purpo ses. It shoul d not be regar ded as inves tigat ional or for resea rch. Not Available [facility] - Manual Order Only [address], [place], [address], 03/06/2024 22:09:02 02/14/20 24 02/14/2024 F2-IS OPROS TANE/ CREAT ININE F2-isoprosta ne 0.48 NG/mL Not Available [facility] - Manual Order Only [address], [place], [address], 03/06/2024 22:09:02 02/14/20 24 02/14/2024 F2-IS OPROS TANE/ CREAT ININE creatinine, urine 74 mg/dL 20 Not Available [facility] - Manual Order Only [address], [place], [address], 03/06/2024 22:09:02 02/14/20 24 02/14/2024 MICRO ALBUM IN/CR EATIN INE microalbumin /creatinine Undete ctable mg/g_ cr <7.5 Micro album in in patie nt's urine sampl e is below assay detec tion; there fore, Micro album in/Cr eatin ine canno t be calcu lated . In the [facility] Heart Study , it was [...] ic kidne y disea se (2). (Refe rence s: 1-Jose middleton et al. Circu latio n 2005; 112: 969-9 75. 2-Jorge L et al. Nephr ology 2013; 1:21) . Not Available [facility] - Manual Order Only [address], [place], [address], 03/06/2024 22:09:03 02/14/20 24 02/14/2024 MICRO ALBUM IN/CR EATIN INE microalbumin <3.0 mg/L Not Available [facility] - Manual Order Only [address], [place], [address], 03/06/2024 22:09:03 02/14/20 24 02/14/2024 FIBRI NOGEN [...] m packa ge inser t. Not Available [facility] - Manual Order Only [address], [place], [address], 03/06/2024 22:09:03 02/14/20 24 02/14/2024 APOLI POPRO TEIN B apolipoprote in B 77 mg/dL <90 Risk: Optim al <90 mg/dL ; Moder ate 90-11 9 mg/dL ; High >= 120 mg/dL ; Cardi ovasc ular event risk categ ory cut point s (opti mal, moder ate, high) are based on Natio nal Lipid Assoc iatio n recom menda tiniru - Reinaldo WELLER et al. J of Clin Lipid . 2015; 9: 129-1 69 and Isabella ERWIN et al. Endoc r Pract . 2017; 23(Cr ppl 2):1- 87. Not Available [facility] - Manual Order Only [address], [place], [address], 03/06/2024 22:09:04 02/14/20 24 02/14/2024 HSCRP hs-CRP [...] Cardi ovasc ular Risk; 1.0-3 .0 mg/L [place] ge Relat renea Cardi ovasc ular Risk; [...] Pearyris on TA, Mensa h [place], Nelli wangr RW, et al. Ellistone rs of infla mmati on and cardi ovasc ular disea se: appli catio n to clini eleanor and publi c healt h pract ice: A state ment for healt hcare diana brito from the [facility] rs for Disea se Contr ol and Preve ntion and the [facility] can Heart Assoc iatio n. Circu latio n 2002; 107(3 ): 499-5 11. Not Available [facility] - Manual Order Only [address], [place], [address], 03/06/2024 22:09:04 02/14/20 24 02/14/2024 LIPID PANEL cholesterol, total 175 mg/dL <200 Not Available [facility] - Manual Order Only [address], [place], [address], 03/06/2024 22:09:05 02/14/2002/14/2024 LIPID PANEL HDL cholesterol 100 mg/dL >49 Not Available [facility] - Manual Order Only [address], [place], [address], 03/06/2024 22:09:05 02/14/20 24 02/14/2024 LIPID PANEL triglyceride s 81 mg/dL <150 Not Available [facility] - Manual Order Only [address], [place], [address], 03/06/2024 22:09:05 02/14/20 24 02/14/2024 LIPID PANEL LDL cholesterol 59 mg/dL _(eleanor c) <100 Baldev able range <100 mg/dL for prima ry preve ntion ; <70 mg/dL for patie nts with CHD or diabe tic patie nts with >= 2 CHD risk facto rs. LDL-C is now calcu lated using the Kelly n-Hop kins calcu latramakrishna n, which is a valid ated novel metho d provi ding berkley r accur acy than the Fried aliza equat ion in the estim ation of LDL-C . Kelly whittington SS et al. EDDI. 2013; 310(1 9): 2061- 2068 (http ://ed ucati on.Qu sariclypd. Bonfire.com/f aq/FA Q164) Not Available [facility] - Manual Order Only [address], [place], [address], 03/06/2024 22:09:05 02/14/20 24 02/14/2024 LIPID PANEL chol/HDL-C 1.8 calc <5.0 Not Available [facility] - Manual Order Only [address], [place], [address], 03/06/2024 22:09:05 02/14/20 24 02/14/2024 LIPID PANEL non-HDL cholesterol 75 mg/dL _(eleanor c) <130 For patie nts with diabe tori plus 1 major ASCVD risk facto r, treat ing to a non-H DL-C goal of <100 mg/dL (LDL- C of <70 mg/dL ) is consi dered a thera peuti c optio n. Not Available [facility] - Manual Order Only [address], [place], [address], 03/06/2024 22:09:05 02/14/20 24 02/14/2024 LP-PL A2 ACTIV ITY LP-pla2 activity 84 nmol/ min/m L <124 Relat renea Risk: Optim al <=123 nmol/ min/m L; High >123 nmol/ min/m L.Thi s test was devel oped and its phyllis tical perfo rmanc e taryn cteri stics have been deter mined by [facility] [place] [facility] at [facility]. It has not been clear ed or appro matthieu by the U.S. Food and Drug Admin istra tion. This assay has been valid ated pursu ant to the CLIA regul ation s and is used for clini eleanor purpo ses. Not Available [facility] - Manual Order Only [address], [place], [address], 03/06/2024 22:09:05 02/14/20 24 02/14/2024 INSUL IN insulin 3.1 uIU/m L <18.5 Refer ence Range <=18. 4. Risk: Optim al <=18. 4, Moder ate NA, High >18.4 . Adult cardi ovasc ular event risk categ ory cut point s (opti mal, moder ate, high) are based on Insul in Refer ence inter natasha studi es perfo rmed at [facility] in 2021. Not Available [facility] - Manual Order Only [address], [place], [address], 03/06/2024 22:09:06 02/14/20 24 02/14/2024 MYELO PEROX [...] with Michael et al). This test was devmak knowles and its phyllis tical perfo rmanc e taryn cteri stics have been deter mined by [facility] Cardi ometa bolkailey [place] [facility] [place] [facility] at [facility]. It has not been clear ed or appro matthieu by the U.S. Food and Drug Admin istra tion. This assay has been valid ated pursu ant to the CLIA regul ation s and is used for clini eleanor purpo ses. Not Available [facility] - Manual Order Only [address], [place], [address], 03/06/2024 22:09:06 02/14/20 24 02/14/2024 VITAM IN [...] are >=30 ng/mL . For addit ional stephenr yvrose britt refer to http: //[facility] alan whittington.que stdia gnost ics.c om/fa q/FAQ 199(T his link is being provi ded for infor vilma [facility] catramakrishna nal purpo ses only. )This test was devel benson and its phyllis tical perfo rmanc e taryn cteri stics have been deter mined by [facility] [employer] hamida arndt Cardi paul Vernon r of [employer] lenannie at [facility]. It has not been clear ed or appro matthieu by the U.S. Food and Drug Admin istra tion. This assay has been valid ated pursu ant to the CLIA regul ation s and is used for clini eleanor purpo ses. Not Available [facility] - Manual Order Only [address], [place], [address], 03/06/2024 22:09:07 02/14/20 24 02/14/2024 OMEGA CHECK epa 0.8 %_by_ wt 0.2-2. 3 Not Available [facility] - Manual Order Only [address], [place], [address], 03/06/2024 22:09:07 02/14/20 24 02/14/2024 OMEGA CHECK dha 2.3 %_by_ wt 1.4-5. 1 Not Available [facility] - Manual Order Only [address], [place], [address], 03/06/2024 22:09:07 02/14/20 24 02/14/2024 OMEGA CHECK dpa 1.2 %_by_ wt 0.8-1. 8 Not Available [facility] - Manual Order Only [address], [place], [address], 03/06/2024 22:09:07 02/14/20 24 02/14/2024 OMEGA CHECK arachidonic acid 14.7 %_by_ wt 8.6-15 .6 Not Available [facility] - Manual Order Only [address], [place], [address], 03/06/2024 22:09:07 02/14/20 24 02/14/2024 OMEGA CHECK linoleic acid 22.9 %_by_ wt 18.6-2 9.5 Not Available [facility] - Manual Order Only [address], [place], [address], 03/06/2024 22:09:07 02/14/20 24 02/14/2024 OMEGA CHECK [...] categ ories were estab lishe d for [place] Check : A cut-o ff of >=5.5 [...] 3 weeks . (Refe rence : 1-Alb ert et al. NEJM. 2002; 346: 1113- 1118) .This test was devel ronaled and its phyllis tical perfo rmanc e taryn cteri stics have been deter mined by [facility] hamida s Cardi paul Vernon r of Alexus crenshaw at [facility]. It has not been clear ed or appro matthieu by the U.S. Food and Drug Admin istra tion. This assay has been valid ated pursu ant to the CLIA regul ation s and is used for clini eleanor purpo ses. Not Available [facility] - Manual Order Only [address], [place], [address], 03/06/2024 22:09:07 02/14/20 24 02/14/2024 OMEGA CHECK omega-6 total 40.7 %_by_ wt [facility] measu res a numbe r of omega -6 fatty acids with AA and LA being the two most abund ant forms repor ivette. Not Available [facility] - Manual Order Only [address], [place], [address], 03/06/2024 22:09:07 02/14/20 24 02/14/2024 OMEGA CHECK omega-3 total 4.3 %_by_ wt Not Available [facility] - Manual Order Only [address], [place], [address], 03/06/2024 22:09:07 02/14/20 24 02/14/2024 OMEGA CHECK omega 6/omega 3 ratio 9.4 3.7-14 .4 Not Available [facility] - Manual Order Only [address], [place], [address], 03/06/2024 22:09:07 02/14/20 24 02/14/2024 OMEGA CHECK arachidonic acid/epa ratio 18.7 3.7-40 .7 Not Available [facility] - Manual Order Only [address], [place], [address], 03/06/2024 22:09:07 02/14/20 24 02/14/2024 (MARCOS) ankle brach ial index * Arm- Left 149 Not Available [address], [place], [address], 02/14/2024 14:45:01 02/14/20 24 02/14/2024 (MARCOS) ankle brach ial index * Leg- Right 200 Not Available [address], [place], [address], 02/14/2024 14:45:01 02/14/20 24 02/14/2024 (MARCOS) ankle brach ial index * Leg- Left 196 Not Available [address], [place], [address], 02/14/2024 14:45:01 02/14/20 24 02/14/2024 (MARCOS) ankle brach ial index * MARCOS Pressure- Right 1.34 Not Available [address], [place], [address], 02/14/2024 14:45:01 02/14/20 24 02/14/2024 (MARCOS) ankle brach ial index * MARCOS Pressure- Left 1.32 Not Available [address], [place], [address], 02/14/2024 14:45:01 07/03/19 25 07/04/2024 UA/M W/RFL X CULTU RE, ROUTI NE specific gravity 1.014 1.005- 1.030 normal Not Available [facility] ([facility]) [address] [place], [address], 07/04/2024 07:11:26 07/03/19 25 07/04/2024 UA/M W/RFL X CULTU RE, ROUTI NE pH 7.0 5.0-7. 5 normal Not Available [facility] ([facility]) [address] [facility], [place], [address], 07/04/2024 07:11:26 07/03/19 25 07/04/2024 UA/M W/RFL X CULTU RE, ROUTI NE urine-color Yellow yellow Not Available [facility] ([facility]) [address] [place], [address], 07/04/2024 07:11:26 07/03/19 25 07/04/2024 UA/M W/RFL X CULTU RE, ROUTI NE appearance Clear clear Not Available [facility] ([facility]) [address] [facility], [place], [address], 07/04/2024 07:11:26 07/03/19 25 07/04/2024 UA/M W/RFL X CULTU RE, ROUTI NE WBC esterase Negati ve negati ve Not Available [facility] ([facility]) [address] [facility], [place], [address], 07/04/2024 07:11:26 07/03/19 25 07/04/2024 UA/M W/RFL X CULTU RE, ROUTI NE protein Negati ve negati ve/tra ce Not Available [facility] ([facility]) [address] [facility], [place], [address], 07/04/2024 07:11:26 07/03/19 25 07/04/2024 UA/M W/RFL X CULTU RE ROUTI NE glucose Negati ve negati ve Not Available [facility] ([facility]) [address] [place], [address], 07/04/2024 07:11:26 07/03/19 25 07/04/2024 UA/M W/RFL X CULTU RE, ROUTI NE ketones Negati ve negati ve Not Available [facility] ([facility]) [address] [place], [address], 07/04/2024 07:11:26 07/03/19 25 07/04/2024 UA/M W/RFL X CULTU RE, ROUTI NE occult blood Negati ve negati ve Not Available [facility] ([facility]) [address] [place], [address], 07/04/2024 07:11:26 07/03/19 25 07/04/2024 UA/M W/RFL X CULTU RE, ROUTI NE bilirubin Negati ve negati ve Not Available [facility] ([facility]) [address] [place], [address], 07/04/2024 07:11:26 07/03/19 25 07/04/2024 UA/M W/RFL X CULTU RE, ROUTI NE urobilinogen ,semi-qn 0.2 mg/dL 0.2-1. 0 normal Not Available [facility] ([facility]) [address] [place], [address], 07/04/2024 07:11:26 07/03/19 25 07/04/2024 UA/M W/RFL X CULTU RE, ROUTI NE nitrite, urine Negati ve negati ve Not Available [facility] ([facility]) [address] [place], [address], 07/04/2024 07:11:26 07/03/19 25 07/04/2024 UA/M W/RFL X CULTU RE, ROUTI NE microscopic examination Commen t Micro scopi c follo ws if indic ated. Not Available [facility] ([facility]) [address] [place], [address], 07/04/2024 07:11:26 07/03/19 25 07/04/2024 UA/M W/RFL X CULTU RE, ROUTI NE microscopic examination See below: Micro scopi c was indic ated and was perfo rmed. Not Available [facility] ([facility]) [address] [place], [address], 07/04/2024 07:11:26 07/03/19 25 07/04/2024 UA/M W/RFL X CULTU RE, ROUTI NE WBC None seen /hpf 0 - 5 Not Available [facility] ([facility]) [address] [facility], [place], [address], 07/04/2024 07:11:26 07/03/19 25 07/04/2024 UA/M W/RFL X CULTU RE, ROUTI NE RBC None seen /hpf 0 - 2 Not Available [facility] ([facility]) [address] [facility], [place], [address], 07/04/2024 07:11:26 07/03/19 25 07/04/2024 UA/M W/RFL X CULTU RE, ROUTI NE epithelial cells (non renal) 0-10 /hpf 0 - 10 Not Available [facility] ([facility]) [address] [facility], [place], [address], 07/04/2024 07:11:26 07/03/19 25 07/04/2024 UA/M W/RFL X CULTU RE, ROUTI NE epithelial cells (renal) PSYCHIATRY INSTRUCTOR Not Available [facility] ([facility]) [address] [facility], [place], [address], 07/04/2024 07:11:26 07/03/19 25 07/04/2024 UA/M W/RFL X CULTU RE, ROUTI NE casts None seen /lpf none seen Not Available [facility] ([facility]) [address] [facility], [place], [address], 07/04/2024 07:11:26 07/03/19 25 07/04/2024 UA/M W/RFL X CULTU RE, ROUTI NE cast type PSYCHIATRY INSTRUCTOR Not Available [facility] ([facility]) [address] [facility], [place], [address], 07/04/2024 07:11:26 07/03/19 25 07/04/2024 UA/M W/RFL X CULTU RE, ROUTI NE crystals PSYCHIATRY INSTRUCTOR Not Available [facility] ([facility]) [address] [facility], [place], [address], 07/04/2024 07:11:26 07/03/19 25 07/04/2024 UA/M W/RFL X CULTU RE, ROUTI NE crystal type PSYCHIATRY INSTRUCTOR Not Available [facility] [address] [facility], [place], [address], 07/04/2024 07:11:26 07/03/19 25 07/04/2024 UA/M W/RFL X CULTU RE, ROUTI NE mucus threads PSYCHIATRY INSTRUCTOR Not Available [facility] ([facility]) [address] [facility], [place], [address], 07/04/2024 07:11:26 07/03/19 25 07/04/2024 UA/M W/RFL X CULTU RE, ROUTI NE bacteria None seen none seen/f ew Not Available [facility] ([facility]) [address] [facility], [place], [address], 07/04/2024 07:11:26 07/03/19 25 07/04/2024 UA/M W/RFL X CULTU RE, ROUTI NE yeast PSYCHIATRY INSTRUCTOR Not Available [facility] ([facility]) [address] [facility], [place], [address], 07/04/2024 07:11:26 07/03/19 25 07/04/2024 UA/M W/RFL X CULTU RE, ROUTI NE trichomonas PSYCHIATRY INSTRUCTOR Not Available [facility] ([facility]) [address] [facility], [place], [address], 07/04/2024 07:11:26 07/03/19 25 07/04/2024 UA/M W/RFL X CULTU RE, ROUTI NE comment PSYCHIATRY INSTRUCTOR Not Available [facility] ([facility]) [address] [facility], [place], [address], 07/04/2024 07:11:26 07/03/19 25 07/04/2024 UA/M W/RFL X CULTU RE, ROUTI NE urinalysis reflex Commen t This speci men will not refle x to a Urine Cultu re. Not Available [facility] ([facility]) [address], [place], [address], 07/04/2024 07:11:26 07/03/19 25 07/03/2024 urina lysis , dipst ick Leukocytes Negati ve Not Available [address], [place], [address], 07/03/2024 13:22:43 07/03/19 25 07/03/2024 urina lysis , dipst ick Nitrite negati ve Not Available [address], [place], [address], 07/03/2024 13:22:43 07/03/19 25 07/03/2024 urina lysis , dipst ick Urobilinogen Normal Not Available [address], [place], [address], 07/03/2024 13:22:43 07/03/19 25 07/03/2024 urina lysis , dipst ick Protein Trace Not Available [address], [place], [address], 07/03/2024 13:22:43 07/03/19 25 07/03/2024 urina lysis , dipst ick pH 7 Not Available [address], [place], [address], 07/03/2024 13:22:43 07/03/19 25 07/03/2024 urina lysis , dipst ick Blood Negati ve Not Available [address], [place], [address], 07/03/2024 13:22:43 07/03/19 25 07/03/2024 urina lysis , dipst ick Specific [place] 1.015 Not Available [address], [place], [address], 07/03/2024 13:22:43 07/03/19 25 07/03/2024 urina lysis , dipst ick Ketone Negati ve Not Available [address], [place], [address], 07/03/2024 13:22:43 07/03/19 25 07/03/2024 urina lysis , dipst ick Bilirubin Negati ve Not Available [address], [place], [address], 07/03/2024 13:22:43 07/03/19 25 07/03/2024 urina lysis , dipst ick Glucose Normal Not Available [address], [place], [address], 07/03/2024 13:22:43 07/03/19 25 07/03/2024 urina lysis , dipst ick Appearance dark Not Available [address], [place], [address], 07/03/2024 13:22:43 07/03/19 25 07/03/2024 urina lysis , dipst ick Color orange Not Available [address], [place], [address], 07/03/2024 13:22:43 11/13/19 25 11/13/2024 BASIC METAB OLIC PANEL (8) glucose 100 mg/dL 70-99 above high normal Not Available [facility] ([facility]) [address] [facility], [place], [address], 11/13/2024 06:15:20 11/13/19 25 11/13/2024 BASIC METAB OLIC PANEL (8) BUN 16 mg/dL 8-27 normal Not Available [facility] ([facility]) [address] [place], [address], 11/13/2024 06:15:20 11/13/19 25 11/13/2024 BASIC METAB OLIC PANEL (8) creatinine 0.67 mg/dL 0.57-1 .00 normal Not Available [facility] ([facility]) [address] [place], [address], 11/13/2024 06:15:20 11/13/19 25 11/13/2024 BASIC METAB OLIC PANEL (8) eGFR 94 mL/mi n/1.7 3 >59 normal Not Available [facility] ([facility]) [address] [place], [address], 11/13/2024 06:15:20 11/13/19 25 11/13/2024 BASIC METAB OLIC PANEL (8) BUN/creatini ne ratio 24 12-28 normal Not Available [facility] ([facility]) [address] [place], [address], 11/13/2024 06:15:20 11/13/19 25 11/13/2024 BASIC METAB OLIC PANEL (8) sodium 133 mmol/ L 134-14 4 below low normal Not Available [facility] ([facility]) [address] [place], [address], 11/13/2024 06:15:20 11/13/19 25 11/13/2024 BASIC METAB OLIC PANEL (8) potassium 3.9 mmol/ L 3.5-5. 2 normal Not Available [facility] ([facility]) [address] [place], [address], 11/13/2024 06:15:20 11/13/19 25 11/13/2024 BASIC METAB OLIC PANEL (8) chloride 93 mmol/ L 96-106 below low normal Not Available [facility] ([facility]) [address] [facility], [place], [address], 11/13/2024 06:15:20 11/13/19 25 11/13/2024 BASIC METAB OLIC PANEL (8) carbon dioxide, total 24 mmol/ L 20-29 normal Not Available [facility] ([facility]) [address] [facility], [place], [address], 11/13/2024 06:15:20 11/13/19 25 11/13/2024 BASIC METAB OLIC PANEL (8) calcium 9.8 mg/dL 8.7-10 .3 normal Not Available [facility] ([facility]) [address] [facility], [place], [address], 11/13/2024 06:15:20 02/14/20 24 02/14/2024 audio gram No observ ation record ed. [email or web address] [facility] [address] [facility] [address], [place], [address], 02/14/2024 17:23:48 02/14/20 24 02/14/2024 elect rocar diogr am No observ ation record ed. [email or web address] [facility] [address], [place], [address], 02/16/2024 08:39:10 03/20/20 24 03/19/2024 MAMMO , scree emy, tomos ynthe sis, bilat eral, w/ CAD No observ ation record ed. [facility] [address], [place], [address], 03/21/2024 12:08:39 06/04/20 24 05/28/2024 DEXA No observ ation record ed. [facility] [address], [place], [address], 06/04/2024 16:57:26 08/22/19 25 08/21/2024 XR, knee, 4 or more view Indica tion: Right knee pain Compar krystal: No prior xrays are availa ble for compar krystal Right knee(s ) 4 views: modera te to severe tricom partme ntal arthri tis with genu varum alignm ent, periar ticula r osteop hytes visual ized in all compar tments Signed by: Yesenia Hammer t on 025 1:42 PM Reason for Exam:- >PAIN Releas e to patien t->Rou lynda Releas e [facility] [address] [facility] [facility] [address], [place], [address], 08/21/2024 13:53:40 Result Notes Documentation Provider Name and Address Organization Details Recorded Time Xr, Knee, 4 Or More View : Indication: Right knee pain Comparison: No prior xrays are available for comparison Right knee(s) 4 views: moderate to severe tricompartmental arthritis with genu varum alignment, periarticular osteophytes visualized in all compartments Signed by: Brenton Hood on 08/21/2024 1:42 PM Reason for Exam:->PAIN Release to patient->Routine Release Angel Luis Mora MD [address] [facility] [address], [place], [address], [facility] / [facility] 08/21/2024 13:53:40 Problems Name Problem SNOMED Code Status Onset Date Resolution Date Notes Provider Name and Address Organization Details Recorded Time Cough 99220524 Active 2015 Cough;Pro blem Note: usual broad different ial. Elements of rhinitis suspect. Chest CT August 2012-see record. Followup recommend ed Not Available [facility] 9 22:03:19 Finding of defecati on Active 2017 Constipat ion; Not Available [facility] 9 22:03:19 Chest pain 17246922 Active 2017 Chest pain; Not Available [facility] 9 22:03:19 Benign neoplasm of meninges 328067229 Active 2016 Meningiom a;Problem Note: yearly MRIs without change-no symptoms were related problem Not Available [facility] 9 22:03:19 Scoliosi s deformit y of spine 887026898 Active 2017 Kyphoscol iosis;Pro blem Note: with spondylol isthesis. Severe Not Available [facility] 9 22:03:19 Benign essentia l hyperten matthew 0398269 Active 2013 Hypertens ion, Benign Essential ; Not Available [facility] 9 22:03:19 Arthropa thy 628879266 Active 2016 Osteoarth ritis; Not Available [facility] 9 22:03:19 Lipoprot ein above referenc e range 215561744 Active 2018 L0 (a) elevation Angel Luis Mora MD [address], [place], [address], [facility] / [facility] 9 12:29:17 Cystocel e and rectocel e co-occur rent with incomple te uterovag inal prolapse 559890033 Active 2018 Angel Luis Mora MD [address], [place], [address], [facility] 9 13:08:59 Coronary atherosc lerosis 596384176 Active 2018 2-40%-act renea plaque and inflammat ion on CIMT 03/01 Angel Luis Mora MD [address], [place], [address], [facility] 9 12:23:00 Body mass index 25-29 - overweig ht 833106901 Active 2018 Stacey palma, [facility] 9 12:20:39 Finding of body mass index 170747459 Active 2018 Glenny palma, [facility] 9 11:27:51 Gastroes ophageal reflux disease 228159039 Active 2018 EGD 3/19-file d Vidhya, probably Barretts Angel Luis Mora MD [address], [place], [address], [place] - [facility] 9 16:50:02 Dean' s esophagu s 354567239 Active 2018 Angel Luis Mora MD [address], [place], [address], [place] [facility] 9 12:07:43 Environm ental allergy 111606432 Active 2020 Angel Luis Mora MD [address], [place], [address], [place] [facility] 1 15:01:32 Hypersom belinda 15329681 Active 2020 Angel Luis Mora MD [address], [place], [address], [place] [facility] 1 15:02:43 Diarrhea 90285672 Active 2020 Angel Luis Mora MD [address], [place], [address], [place] [facility] 1 11:42:25 Easy bruising 386518101 Active 2020 Angel Luis Mora MD [address], [place], [address], [place] [facility] 1 11:43:30 Sleep apnea 08107575 Active 2020 Angel Luis Mora MD [address], [place], [address], [place] [facility] 1 15:45:46 Iron deficien cy 50024773 Active 2021 ferritin 11 as of 08/24/21 Angel Luis Mora MD [address], [place], [address], [place] [facility] 2 09:03:15 Osteoart hritis 094940338 Active 2022 Angel Luis Mora MD [address], [place], [address], [place] - [facility] 3 14:19:41 Hyponatr emia 04583252 Active 2022 Angel Luis Mora MD [address], [place], [address], [place] - [facility] 3 14:19:42 Depressi ve disorder 57379440 Active 2022 Angel Luis Mora MD [address], [place], [address], [place] - [facility] 3 13:55:50 Chapped skin 017586401 Active 2023 Angel Luis Mora MD [address], [place], [address], [place] - [facility] 4 10:10:15 Chronic cough 39305469 Active 2024 Angel Luis Mora MD [address], [place], [address], [place] - [facility] 5 12:08:08 Seasonal affectiv e disorder 300016200 Active 2024 Angel Luis Mora MD [address], [place], [address], [place] - [facility] 5 16:41:56 Essentia l hyperten matthew 12863892 Active 2024 Angel Luis Mora MD [address], [place], [address], [place] - [facility] 5 15:24:48 Problem Notes None recorded. Procedures Surgical History Date Name Laterality Status Provider Name and Address Organization Details Recorded Time 02/13 Pain Assessment completed Kaitlin JOYNER - [facility] / [facility] 4 15:27:43 02/13 Home Safety Screen completed Kaitlin JOYNER - [place] / [facility] 4 15:26:58 [...] [address] [facility] [address], [place], [address], [place] [facility] 0 13:10:28 11/13 Pain Assessment completed Kaitlin Leonila [place] [facility] / [place] 0 11:11:12 11/13 Home Safety Screen completed Kaitlin Leonila [place] / [place] 0 11:09:31 03/16 total excision of bilateral fallopian tubes completed Angel Luis Mora MD [address] [facility] [address], [place], [address], [place] [facility] 9 14:00:41 02/27 Dxa bone density yessy vrt fx completed Kaitlin Leonila [place] [facility] 0 15:44:00 10/18 RADHAP AWE completed Angel Luis Mora MD [address] [facility] [address], [place], [address], [place] [facility] 9 13:53:04 09/25 Pain Assessment completed Kaitlin Leonila [place] [facility] / [facility] 9 15:19:20 09/25 Home Safety Screen completed Kaitlin Leonila [place] / [facility] 9 15:19:20 09/04 esophagogastroduodenosc opy completed Kaitlin Leonila [place] [facility] / [facility] 9 16:20:35 09/04 Colorectal ca screen doc rev completed Kaitlinkeerthi Mora / [place] 0 09:55:38 07/07 Screening Mammogram completed Kaitlin Leonila [facility] / [facility] 9 16:23:08 06/13 Vidhya Fundoplication completed Kaitlinkeerthi Mora / [facility] 9 16:20:08 06/13 augmentation of bilateral breasts completed Kaitlin Leonila Mora / [facility] 9 16:19:23 06/13 operation on urinary bladder completed Kaitlin Leonila JOYNER - [facility] / [facility] 0 15:38:30 06/13 Total hysterectomy completed Kaitlin Leonila hitchcock / [facility] 0 15:39:15 Imaging Results None recorded. Procedure Notes None recorded. Medical Equipment None Reported. Allergies Allergen ID Allergen Name Allergen Category Reaction Reaction Severity Criticality Documentation Date Start Date Code Code System Note Provider Name and Address Organization Details Recorded Time 6314 Lunesta medicatio n Not available Not available Not available 09/11/2018 26616 4 RxNorm React ion: face/ neck swell ing; Not Available [facility] 9 05:48:00 Medications Name Sig Start Date [...] t Available azithromy jerry 250 mg tablet TAKE 2 TABLETS (500 MG) BY ORAL ROUTE ONCE DAILY FOR 1 DAY THEN 1 TABLET (250 MG) BY ORAL ROUTE ONCE DAILY FOR 4 DAYS 10/15 completed Not Available Not Available Not [...] EVERY DAY with food --TAKE WITH FOOD-- 11/12 completed Not Available Not Available Not Available phenazopy ridine 200 mg tablet TAKE [...] le 20 mg oral capsule, delayed release( /EC) Not Available Not Available Not Available hydroxyzi [...] tablet take 1/2 tab (7.5mg) PO QD 11/12 completed Not Available Not Available Not Available estradiol 0.5 mg tablet TAKE 1 TABLET [...] Available rosuvasta tin 20 mg tablet TAKE ONE TABLET BY MOUTH [...] t Available pregabali n 75 mg capsule Take 1 cap PO Q a.m. and 1 cap PO Q midday and 2 caps PO Q p.m. 08/25 completed when refills needed, pt would like sent to mail order Not Available Not Available Not Available acetamino phen prn active Usually 2 po once or twice a week. HH 02/14/24 Not Available Not Available Not Available aspirin 81 mg daily active Not taking HH 11/30/22 & 02/14/24 Not Available Not Available Not Available Fish Oil 1290 mg 1 po qd active Not taking since Jun 2023 HH 02/14/24 Not Available Not Available Not Available [...] TAKE ONE TABLET BY MOUTH EVERY DAY 11/12 completed Not Available Not Available Not Available melatonin 5 mg tablet take 2 [...] route. 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 Not Available Not Available Not Available [employer] [...] Updated DateTime 5 162.56 cm 27.7 kg/m2 09537.8 1 g 98 % 98 % 58 /min 143 mm[Hg] 88 mm[Hg] Paulino Kyel [facility] / [place] 5 11:29:57 Date Recorded Body height Body mass index (BMI) Body weight Heart rate Oxygen saturation Oxygen saturation in Arterial blood by Pulse oximetry Systolic blood pressure Diastolic blood pressure Provider Name and Address Organization Details Last Updated DateTime 5 162.56 cm 26.5 kg/m2 46726.3 g 59 /min 97 % 97 % 127 mm[Hg] 86 mm[Hg] Kala Dominique [facility] / [place] 5 16:13:52 Date Recorded Body height Oxygen saturation Oxygen saturation in Arterial blood by Pulse oximetry Heart rate Body mass index (BMI) Body weight Systolic blood pressure Diastolic blood pressure Provider Name and Address Organization Details Last Updated DateTime 5 162.56 cm 97 % 97 % 64 /min 27.4 kg/m2 34650.3 4 g 117 mm[Hg] 80 mm[Hg] Paulino Kyle [facility] / [place] 5 15:11:08 Date Recorded Body height Body mass index (BMI) Body weight Oxygen saturation Oxygen saturation in Arterial blood by Pulse oximetry Heart rate Systolic blood pressure Diastolic blood pressure Provider Name and Address Organization Details Last Updated DateTime 4 162.56 cm 27.4 kg/m2 83176.3 4 g 98 % 98 % 80 /min 120 mm[Hg] 90 mm[Hg] Sun Mendez [place] [facility] [employer] / [place] 4 13:09:15 Social History Question Answer Notes LastModified by [employer] Details LastModified Time Tobacco Smoking Status Never Smoker Not Available [facility] 04/15/2020 03:38:50 What Is Your Level Of Caffeine Consumption? Moderate 1 Mug Coffee/d, 1 Iced Tea/d [id number] Information not available 04/15/2020 Education 2 Year College Information not available 03/31/2021 Mar[email or web address] Informatio n not available 03/31/2021 What Was The Date Of Your Most Recent Tobacco Screening? 02/14/2024 Information not available 02/14/2024 Sex: Unknown Functional Status Question Answer Note LastModified by [employer] Details LastModified Time What is your level of alcohol consumption? 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 Information not available 03/31/2021 What is your [...] trivalent, PF 4 completed Sun Mendez null, [facility] 03/02/2024 14:04:12 Tdap 9 completed Not Available [facility] 06/30/2019 02:25:25 zoster, unspecified formulation 3 completed Not Available [facility] 01/19/2023 15:01:25 Influenza, recombinant, quadrivalent, PF 8 completed Not Available [facility] 01/19/2023 15:01:25 Hep A, adult 8 completed Not Available [facility] 01/19/2023 15:01:25 zoster live 9 completed Not Available [facility] 01/19/2023 15:01:25 Influenza, recombinant, quadrivalent, PF 9 completed Not Available [facility] 06/30/2019 02:25:26 COVID-19, mRNA, LNP-S, PF, 30 mcg/0.3 mL dose 1 completed Germania [place] null, [facility] 10/05/2022 13:14:56 COVID-19, mRNA, LNP-S, PF, 30 mcg/0.3 mL dose 1 completed Germania [place] null, [facility] 10/05/2022 13:15:12 pneumococcal polysaccharide PPV23 0 completed Guerita Burr null, [facility] 12/05/2019 15:26:41 COVID-19, mRNA, LNP-S, bivalent, PF, 50 mcg/0.5 mL or 25mcg/0.25 mL dose 2 completed Germania [place] null, [facility] 10/05/2022 13:16:47 Influenza, recombinant, quadrivalent, PF 0 completed Germania [place] null, [facility] 03/24/2020 14:12:14 Hep A, adult 9 completed Not Available [facility] 06/30/2019 02:25:25 COVID-19, mRNA, LNP-S, PF, 100 mcg/0.5mL dose or 50 mcg/0.25mL dose 1 completed Guerita Burr null, [place] [facility] / [place] 03/28/2021 12:02:10 Influenza, recombinant, quadrivalent, PF 1 completed [place]ia [place] null, [place] [facility] / [place] 05/25/2021 14:49:06 zoster recombinant 1 completed [place]ia [place] null, [place] [facility] / [place] 05/25/2021 14:49:06 Influenza, high-dose, quadrivalent, PF 2 completed Guerita Bur[place] null, [place] [facility] / [place] 04/06/2022 13:44:54 Past Encounters Encounter ID Performer Location Encounter Start Date Encounter Closed Date Diagnosis/Indication Diagnosis SNOMED-CT Code Diagnosis ICD10 Code Diagnosis Note [id number] Angel Luis Mora MD [facility] [address] [place] [address] 08/28/2018 15:26:45 08/28/2018 16:28:45 Pain of left shoulder joint 1282169424 1589554 M25.512 consider rotator cuff injury/tea r, labral tear. [id number] Angel Luis Mora MD [facility] [address] [place] [address] 09/25/2018 15:17:01 09/25/2018 17:02:04 Adult health examination 529441257 Z00.00 [id number] Angel Luis Mora MD [facility] [place] [address] 10/18/2018 13:01:12 10/18/2018 15:00:48 Lipoprotein above reference range 940004173 E78.41 Benign navya plasm of meninges 102327128 D32.9 Benign ess ential hypertension 2135018 I10 Scoliosis deformity of spine 518021492 M41.9 Dean's esophagus [address] Amaya tomorrow. Intermitte nt free reflux. Possible candidate for erythromyc in protocol Arthropathy 259027773 M1 2.9 hands, low back Cough 55027951 R05 extensivel y worked up. Gastroesop hageal reflux contributo ry. Abnormal chest CT-long stable however. He notes pulmonolog ist Active or passive immunization 296734371 Z23 [id number] Angel Luis Mora MD [facility] [address] [place] [address] 01/01/2019 12:27:10 01/01/2019 13:11:37 Scoliosis deformity of spine 399225166 M41.9 Arthropathy 554083929 M1 2.9 hands, low back-see above Cystocele and rectocele co-occurrent with incomplete uterovaginal prolapse 630611293 N81.2 surgical consultati on pending Lipoprotei n above reference range 182152941 E78.41 [id number] Angel Luis Mora MD [facility] [address] [place] [address] 02/27/2019 12:13:33 02/27/2019 15:54:24 Body mass index 25-29 - overweight 206187443 Z68.27 Prolapse o f female genital organs 79754417 N81.9 very low surgical risk-below 0.5% by Chuck criteria (revised cardiac risk index). Active or passive immunization 018029107 Z23 [id number] Angel Luis Mora MD [facility] [address] [place] [address] 03/26/2019 15:44:16 03/26/2019 16:42:22 Coronary atherosclerosis 491092357 I25.10 Lipoprotei n above reference range 498459436 E78.41 Benign ess ential hypertension 5563353 I10 with increased fluid retention. His sodium and potassium issues, we'll try low-dose loop diuretic [id number] Angel Luis Mora MD [facility] [address] [place] [address] 04/20/2019 12:05:22 04/20/2019 12:46:58 Abdominal pain 88402648 R10.9 Nausea 495551316 R11.0 isolated symptom. [id number] Angel Luis Mora MD [facility] [address] [place] [address] 04/30/2019 11:16:51 04/30/2019 15:20:42 Body mass index 25-29 - overweight 666753832 Z68.26 Benign ess ential hypertension 0183472 I10 [id number] Angel Luis Mora MD [facility] [address] [place] [address] 05/25/2019 13:34:32 05/25/2019 14:45:21 Body mass index 25-29 - overweight 902638546 Z68.25 Active or passive immunization 181629983 Z23 Dean's esophagus [address] Amaya tomorrow. Intermitte nt free reflux. Possible candidate for erythromyc in protocol Benign ess ential hypertension 6365957 I10 improved control. Over 30 min.-great er than 50% counseling Lipoprotei n above reference range 861764411 E78.41 [id number] Angel Luis Mora MD [facility] [address] [place] [address] 08/20/2019 12:16:41 08/20/2019 13:16:43 Body mass index 25-29 - overweight 261268517 Z68.26 Benign ess ential hypertension 8574541 I10 acceptable control Arthropathy 494999672 M1 2.9 hands, low back-see above [id number] Angel Luis Mora MD [facility] [address] [place] [address] 10/18/2019 15:13:38 10/18/2019 16:50:32 Acute low back pain 177609081 M54.5 no sinister features. Quite demonstrat renea however. On steroids. Short-term opioid reasonable . MRI was scheduled for today but she postponed to Tuesday because of her symptom severity Nausea and vomiting 1692 1999 R11.2 [id number] Angel Luis Mora MD [facility] [address] [place] [address] 10/23/2019 12:28:23 10/23/2019 14:00:54 Benign essential hypertension 9729763 I10 acceptable control-fo r now. Scoliosis deformity of spine 456994215 M41.9 Acute low back pain 2788 24018 M54.5 no sinister features. Quite demonstrat renea earlier however. On steroids. Short-term opioid \has been helpful. MRI completed. Results being sought now. Sacroiliac joint dysfunctio n may play a role. PT likely next option. addendum: MRI report reviewed. New L3 disc herniation . Discussed with patient. Arrange physical therapy at [facility]. On principle referring to Dr. Hardeep Barnard. Conservati ve therapy may suffice Nausea 562809429 R11.0 improving. See above narrative at last visit. We'll recheck electrolyt es and white count [id number] Angel Luis Mora MD [facility] [address] [place] [address] 11/14/2019 08:44:45 11/14/2019 14:07:08 Adult health examination 680468878 Z00.00 [id number] Angel Luis Mora MD [facility] [address] [place] [address] 12/05/2019 13:46:35 12/05/2019 15:29:23 Dean's esophagus 098193647 K22.[address] Amaya tomorrow. Intermitte nt free reflux. Possible candidate for erythromyc in protocol Benign ess ential hypertension 2094561 I10 acceptable control-fo r now. 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 Gastroesop hageal reflux contributo ry. Abnormal chest CT-long stable however. He notes pulmonolog ist. Even earwx may contribute Active or passive immunization 334990212 Z23 [id number] Angel Luis Mora MD [facility] [address] [place] [address] 03/24/2020 13:31:59 03/24/2020 14:54:00 Administration of influenza vaccine 27792692 Z23 Body mass index 25-29 - overweight 960299129 Z68.26 Trochanter ic bursitis of right hip 4312954721 21378 M70.61 [id number] Angel Luis Mora MD [facility] [address] [place] [address] 06/03/2020 12:57:46 06/03/2020 13:57:59 Renewal of prescription 942797542 Z76.0 Dean's esophagus [address] Amaya tomorrow. Intermitte nt free reflux. Possible candidate for erythromyc in protocol Cough 13998723 R05 extensivel y worked up. Gastroesop hageal reflux contributo ry. Abnormal chest CT-long stable however. He notes pulmonolog ist. Even earwx may contribute . More broadly I think a neurogenic cause for this and her other symptoms can be supported. I have suggested increasing gabapentin to one twice daily and 2 at night-a total of 2400 mg daily [id number] Angel Luis Moar MD [facility] [address] [place] [address] 11/05/2020 10:55:33 11/05/2020 11:43:24 Body mass index 25-29 - overweight 073776457 Z68.25 Benign ess ential hypertension 7905550 I10 acceptable control-fo r now. Insomnia 292972856 G47.0 0 See above discussion [id number] Angel Luis Mora MD [facility] [address] [place] [address] 11/17/2020 10:26:54 11/17/2020 11:45:04 Adult health examination 493621292 Z00.00 Arthropathy 938013149 M1 2.9 hands, low back-see above Benign ess ential hypertension 4071917 I10 acceptable control-fo r now. [id number] Angel Luis Mora MD [facility] [address] [place] [address] 12/09/2020 14:07:06 12/09/2020 15:43:07 Dean's esophagus 631219866 K22.[address] Amaya tomorrow. Intermitte nt free reflux. Possible candidate for erythromyc in protocol Benign ess ential hypertension 5358322 I10 acceptable control-fo r now.Unusua l lability of greetings from home sometimes as low as 70's over 40s and at other times high.No evidence for headaches, palpitatio ns or excessive sweating Benign navya plasm of meninges 203199850 D32.9 Coronary atherosclerosis 837620431 I25.10 Cough 70559708 R05 extensivel y worked up. Gastroesop hageal reflux contributo ry. Abnormal chest CT-long stable however. He notes pulmonolog ist. Even earwx may contribute . More broadly I think a neurogenic cause for this and her other symptoms can be supported. I have suggested increasing gabapentin to one twice daily and 2 at night-a total of 2400 mg daily Impacted cerumen 4641881 6 H61.20 Environmental allergy 42 8402154 T78.49XA Remote testing. More recent test again [place] showing some allergy to a mild degree. Discussed Flonase, OTC options. Hypersomnia 98609165 G47 .10 Scoliosis deformity of spine 372099372 M41.9 Renewal of prescription 753745734 Z76.0 [id number] Angel Luis Mora MD [facility] [address] [place] [id number] 01/12/2021 11:12:48 01/12/2021 11:51:34 Dean's esophagus 822219930 K22.[address] Amaya tomorrow. Intermitte nt free reflux. Possible candidate for erythromyc in protocol Diarrhea 71771533 R19.7 No new exposures. Does have cystern but does not drink from this and also has had testing and filtering. We discussed the differenti al that could include the high dose Nexium, microscopi c colitis, small bowel overgrowth , I suppose Giardia. Short-term empirical trial of Cipro discussed and she embraces this. Easy bruising 355023831 R58 No doubt combinatio n of actinic damage and age. No orifice bleeding. I recommende d reducing aspirin perhaps to once weekly [id number] Angel Luis Mora MD [facility] [address] [facility] [address] [place] [phone] 02/03/2021 12:57:06 02/03/2021 14:17:01 Diarrhea 48226499 R19.7 No new exposures. Does have cystern but does not drink from this and also has had testing and filtering. We discussed the differenti al that could include the high dose Nexium, microscopi c colitis, small bowel overgrowth , I suppose Giardia. A considerat ion. Please see above. Seeing Dr. Amaya next week. I propose a glucose breath test Benign ess ential hypertension 5470150 I10 No classic features for pheochromo cytoma but will check urine [id number] Angel Luis Mora MD [facility] [address] [place] [address] 03/28/2021 11:06:49 03/28/2021 16:08:13 Active or passive immunization 576953906 Z23 [id number] Angel Luis Mora MD [facility] [address] [place] [address] 03/31/2021 12:55:21 03/31/2021 13:45:09 Dean's esophagus 926613260 K22.[address] Amaya tomorrow. Intermitte nt free reflux. Possible candidate for erythromyc in protocol Benign ess ential hypertension 2644967 I10 Improved and stable History suggest possible-P OTS-if symptoms escalate may call for additional evaluation with tilt table Cough 83673616 R05.3 Refractory . Full dose gabapentin not helpful. Will try pregabalin [id number] Angel Luis Mora MD [facility] [address] [place] [address] 04/22/2021 15:14:33 04/22/2021 16:37:10 Dean's esophagus 432303075 K22.[address] Amaya tomorrow. Intermitte nt free reflux. Possible candidate for erythromyc in protocol Cough 05553220 R05.3 Refractory . Full dose gabapentin not helpful. Will try pregabalin Gastroesop hageal reflux disease 204292455 K21.9 Sleep apnea 23465559 G47 .30 severe [id number] Angel Luis Mora MD [facility] [address] [place] [address] 05/25/2021 13:55:14 05/25/2021 15:17:42 Administration of influenza vaccine 95742639 Z23 Active or passive immunization 662628077 Z23 Body mass index 20-24 - normal 360477021 Z68.24 Cough 92771961 R05.3 Refractory . We will titrate up gradually to 300 mg pregabalin daily Sleep apnea 45098429 G47 .30 severe-Str vannessa indication s for CPAP. Some challenges getting adjusted and needs expert assistance through sleep specialist [id number] Angel Luis Mora MD [facility] [address] [place] [address] 08/25/2021 13:29:39 08/25/2021 14:14:33 Cough 78760095 R05.3 Refractory . Pregabalin not effective. 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 [id number] Angel Luis Mora MD [facility] [address] [place] [address] 11/26/2021 09:09:43 11/26/2021 11:30:14 Adult health examination 280914801 Z00.00 Arthropathy 722053558 M1 2.9 hands, low back-see above Benign ess ential hypertension 7555506 I10 Improved and stable History suggest possible-P OTS-if symptoms escalate may call for additional evaluation with tilt table [id number] Angel Luis Mora MD [facility] [address] [place] [address] 12/10/2021 13:57:44 12/10/2021 15:45:49 Renewal of prescription 790528253 Z76.0 Coronary atherosclerosis 726060027 I25.10 Gastroesop hageal reflux disease 350958824 K21.9 Lipoprotei n above reference range 144071488 E78.41 Dean's esophagus [address] Amaya tomorrow. Intermitte nt free reflux. Possible candidate for erythromyc in protocol Cough 71700441 R05.3 Refractory . Pregabalin not effective. Slow taper off Sleep apnea 47086702 G47 .30 severe-Imp roved on BiPAP [id number] Angel Luis Mora MD [facility] [address] [place] [address] 12/28/2021 14:02:01 12/28/2021 14:42:34 Glossitis 52013560 K14.0 Tiffani albicans a leading possibilit y in light of her recent steroid use. Can try magic mouthwash if nystatin not effective [id number] Angel Luis Mora MD [facility] [address] [place] [address] 04/06/2022 13:01:29 04/06/2022 15:23:33 Iron deficiency 67052560 E61.1 Liver enzy mes level above reference range 271230613 R74.01 Administra tion of influenza vaccine 89017258 Z23 [id number] Angel Luis Mora MD [facility] [address] [place] [address] 08/17/2022 12:51:33 08/17/2022 13:43:19 Body mass index 25-29 - overweight 056922504 Z68.25 Chronic sinusitis 271136 00 J32.9 On clinical grounds. Will image Chapped skin 563092185 R 23.8 [id number] Angel Luis Mora MD [facility] [address] [place] [address] 10/06/2022 13:33:17 10/06/2022 14:44:14 Osteoarthritis 872459653 M19.90 Hyponatremia 33525577 E8 7.1 see above Iron deficiency 15480995 E61.1 Sleep apnea 06582499 G47 .30 severe-Imp roved on BiPAP Motion sickness 89255396 T75.3XXS [id number] Angel Luis Mora MD [facility] [address] [place] [address] 11/30/2022 12:39:34 11/30/2022 14:48:27 Adult health examination 523887569 Z00.00 Arthropathy 863585244 M1 2.9 hands, low back-see above Benign ess ential hypertension 4312468 I10 Improved and stable History suggest possible-P OTS-if symptoms escalate may call for additional evaluation with tilt table Osteoarthritis 741792386 M19.90 [id number] Angel Luis Mora MD [facility] [address] [place] [address] 12/20/2022 12:43:17 12/20/2022 14:52:43 Body mass index 25-29 - overweight 609515046 Z68.26 Renewal of prescription 440560928 Z76.0 Dean's esophagus [address] Amaya tomorrow. Intermitte nt free reflux. Possible candidate for erythromyc in protocol Coronary atherosclerosis 045037396 I25.10 Gastroesop hageal reflux disease 781445751 K21.9 Cough 54389795 R05.3 Refractory . Pregabalin not effective. Scoliosis deformity of spine 874867513 M41.9 Osteoarthritis 557413814 M19.90 Sleep apnea 01389707 G47 .30 severe-Imp roved on BiPAP Depressive disorder 3548 9007 F32.A [id number] Angel Luis Mora MD [facility] [place] [address] 01/19/2023 15:00:10 01/19/2023 16:23:28 Body mass index 25-29 - overweight 913908042 Z68.26 Iron deficiency 47066232 E61.1 Cough 34601525 R05.3 Refractory . Pregabalin not effective. Depressive disorder 3547 9006 F32.A Improved? I suppose it is possible the duloxetine could be favorably impacting this [id number] Angel Luis Mora MD [facility] [place] [address] 08/16/2023 09:13:21 08/16/2023 10:21:05 Body mass index 25-29 - overweight 685422697 Z68.27 Iron deficiency 00931506 E61.1 Benign ess ential hypertension 6865280 I10 Well-contr olled today. She would like to switch back to metoprolol which I think is very reasonable . Clearly labetalol is highly effective and quickly Sleep apnea 32254892 G47 .30 severe-Imp roved on BiPAP Chapped skin 423524851 R 23.8 recommende d Epiceram-s ampled Renewal of prescription 965219339 Z76.0 Benign navya plasm of meninges 069639183 D32.9 Cough 35148148 R05.3 Neurogenic component. Improved Scoliosis deformity of spine 841005934 M41.9 Responding to spinal stimulator [id number] Angel Luis Mora MD [facility] [address] [address] 02/14/2024 14:34:47 02/14/2024 15:57:39 Adult health examination 366073236 Z00.00 Arthropathy 142199541 M1 2.9 hands, low back-see above Benign ess ential hypertension 1020834 I10 Well-contr olled today. She would like to switch back to metoprolol which I think is very reasonable . Clearly labetalol is highly effective and quickly Depressive disorder 3547 F32.A Improved? I suppose it is possible the duloxetine could be favorably impacting this Osteoarthritis 261179879 M19.90 Current drinker 020948 F10.90 [id number] Angel Luis Mora MD [facility] [address] [place] [id number] 03/02/2024 13:02:23 03/02/2024 14:14:40 Active or passive immunization 482827399 Z23 Body mass index 25-29 - overweight 460044112 Z68.27 Benign ess ential hypertension 1189706 I10 Well-contr olled today. She would like to switch back to metoprolol which I think is very reasonable . Clearly labetalol is highly effective and quickly Renewal of prescription 844527727 Z76.0 Gastroesop hageal reflux disease 742034860 K21.9 Coronary atherosclerosis 625874376 I25.10 Dean's esophagus [address] Amaya tomorrow. Intermitte nt free reflux. Possible candidate for erythromyc in protocol Cough 27558103 R05.3 Neurogenic component. Improved-D uloxetine helpful Postmenopausal state 764 13472 Z78.0 [id number] Angel Luis Mora MD [facility] [address] [address] 07/03/2024 12:34:00 07/03/2024 13:28:45 Dysuria 91198104 R30.0 Pain of knee region 1003 571098 M25.561 Medial collateral ligament sprain versus meniscal tear. Injected Acute glossitis 31550603 6 K14.0 Discussed conservati ve management with saltwater gargles etc. Chronic constipation 236 431156 K59.09 [id number] Angel Luis Mora MD [facility] [address] [address] 08/30/2024 11:18:47 08/30/2024 15:31:54 Active immunization 35017747 Z23 Dean's esophagus [address] Amaya tomorrow. Intermitte nt free reflux. Possible candidate for erythromyc in protocol Gastroesop hageal reflux disease 322522535 K21.9 Arthropathy 265828993 M1 2.9 hands, low back-see above Benign ess ential hypertension 0379735 I10 Addition of diuretic seems prudent Chronic cough 90100147 R 05.3 Previously and extensivel y evaluated. Likely to be neurogenic . Acid reflux may contribute . Patient suspects some role of allergies Repeated prescription 18 6883875 Z76.0 [id number] Angel Luis Mora MD [facility] [address] [facility] [address] [place] [phone] 10/15/2024 16:04:23 10/16/2024 15:06:46 Seasonal affective disorder 414796180 F33.1 Benign navya plasm of meninges 607819361 D32.9 Iron deficiency 52385566 E61.1 Benign ess ential hypertension 4369889 I10 Addition of diuretic seems prudent [id number] Angel Luis Mora MD [facility] [address] [facility] [address] [place] [phone] 11/12/2024 15:02:56 11/13/2024 10:45:52 Body mass index 25-29 - overweight 910618729 Z68.27 Essential hypertension 89769108 I10 controlled Health Concerns Section Related Observation LastModified by Organization Detai ls LastModified Time None Recorded Concern Status LastModified by Organization Details LastModified Time None Recorded Advance Directives Directive None Recorded Payers Insurance Date Sequence Insurance Name Policy Number Policy Wells Covered Member ID Wells Member ID Guarantor Name 11/11/2024 1 [place] Bianca Ferrari Breeding [id number] Bianca Ferrari Breeding 08/14/2023 1 [facility] Bianca Ferrari Breeding [id number] Bianca Ferrari Breeding 11/28/2024 2 AARP (MEDICARE SUPPLEMENT) Bianca Ferrari Breeding [id number] Bianca Ferrari Breeding Notes Date Note Type Note Provider Name and Address Organization Details Recorded Time 4 text/html Patient presents for annual wellness visit. Spinal stimulator placed in June and she is improved but not convinced it is still helping. She has had some typical ragweed allergy symptoms over the last couple of weeks and recent urinary tract infection treated by local hospital. AR Lawler / Kermit 03/02/2024 14:04:19 5 text/html This patient presents [...] colonoscopy was about 18 months ago Kala MossAR deras 07/03/2024 13:38:03 5 text/html This patient presents [...] up over 100 AR Salcedo 10/15/2024 16:55:44 5 text/html This patient is having excellent control of blood pressure. Tolerating hydrochlorothiazide. Readings at home are comparable to those here today. Having some soreness of the right biceps muscle after lifting a grandchild. Discussed simple measures AR Lawler 11/12/2024 15:31:06 OBGyn Episode No OBEpisode recorded.
--- OUTSIDE RECORDS SUMMARY | 2024-12-07 14:46 | XMS_ITS | Encounter Summary ---
Author Organization [employer] Address [address] [place] [address] Care Team Providers Care Food Sampler Name Role Phone Guero Schmitt MD, John Primary Care Provider [phone] Encounter Details Date Type Department Care Team (Late st Contact Info) Description 03/22/2019 Transcribed Document [facility] [place] Medicine [address] [place] [address] ProviderFrida MD [address] [place] [address] [id number] Social History Tobacco Use Types Packs/Day Years Used Date Smoking Tobacco: Never Assessed Comments Unknown Sex and Gender Information Value Date Recorded Sex Assigned at Not on file Legal Sex Female 5:43 PM CDT Gender Identity Not on file Sexual Orientation Not on file documented as of this encounter Miscellaneous Notes * Cerner Conversion Note - Frida Morataya MD - 03/22/2019 10:44 AM CDT Patient: BIANCA ZAZUETA Age: 63 years Sex: Female : 1955 Associated Diagnoses: None Author: LOLA CLAYTON, DO Basic Information taking po better feeling better overall feels ready to go home Review of Systems Constitutional: No fever, No chills. Respiratory: No shortness of breath, No cough. Genitourinary: No dysuria, No hematuria. Psychiatric: Not delusional, No hallucinations. Health Status Allergies: Allergic Reactions (Selected) Severity Not Documented Lunesta- Swelling. Nickel- Rash. Nonallergic Reactions (Selected) Severity Not Documented Percocet - Nausea present., Allergies (3) Active Reaction Lunesta Swelling Nickel Rash Percocet Nausea present Current medications: (Selected) Inpatient Medications Ordered Azactam [...] mcg, Oral, Daily Lovenox: 40 mg, SubCutaneous, [id number] MiraLax: 17 Gram, Oral, BID Mylanta: 15 mL, Oral, Q4H, PRN: Abdominal Pain Neurontin: 100 mg, Oral, At Bedtime Normal Saline 1,000 mL: 75 mL/Hr, IntraVENous Protonix: 40 mg, IV Push, BID Toprol-XL: 50 mg, Oral, At Bedtime Zofran: 4 mg, IV Push, Q4H, PRN: Nausea Zosyn + Sodium Chloride 0.9% intravenous solution 100 mL: 3.375 Gram, 33.33 mL/Hr, IV Piggyback, Q6HInt acetaminophen-HYDROcodone 325 mg-5 mg oral tablet: 1 Tab, Oral, Q4H, PRN: Pain (Severe 7-10) amLODIPine: 5 mg, Oral, BID aspirin: 81 mg, Oral, Daily atorvastatin: 40 [...] transdermal film, extended release: 1 Patch, Topical, Thursday, 0 Refill(s) Linzess 145 mcg oral capsule: 1 Cap, Oral, Daily, 0 Refill(s) Melatonin 5 mg oral tablet: 1 Tab, Oral, Once a day (at bedtime), PRN: as needed for insomnia, 0 Refill(s) hydrOXYzine hydrochloride 25 mg oral tablet: 1-2 Tab, Oral, At Bedtime, 0 Refill(s) losartan 50 mg oral tablet: 1 Tab, Oral, Daily, 0 Refill(s) metoprolol succinate 50 mg oral capsule, extended release: 1 Cap, Oral, QPM, 0 Refill(s) Problem list: Medical Anxiety / SNOMED CT 40345939 / Confirmed At risk for sleep apnea / IMO [id number] / Confirmed Meningioma / SNOMED CT 6102653732 / Confirmed Hypertension / SNOMED CT 6194748313 / Confirmed, Active Problems (4) Anxiety At [...] (MAR 22 06:04) 18 (MAR 21 22:06) 19 (MAR 21 14:53) SBP 119 (MAR 22 06:04) 119 (MAR 22 06:04) H 155 (MAR 21 14:53) DBP 65 (MAR 22 06:04) 65 (MAR 22 06:04) H 96 (MAR 21 14:53) MAP 78 (MAR 22 06:04) 78 (MAR 22 06:04) 111 (MAR 21 14:53) SpO2 97 (MAR 22 06:04) L 93 (MAR 22 02:09) 97 (MAR 22 06:04) General: Alert and oriented, No acute distress. [...] four charted values) WBC H 10.2 (MAR 22) H 12.7 (MAR 21) H 15.3 (MAR 20) H 18.5 (MAR 07) HB L 10.7 (MAR 22) L 9.9 (MAR 09) L 10.9 (MAR 08) 12.2 (MAR 07) HCT L 32.8 (MAR 22) L 29.1 (MAR 21) L 32.6 (MAR 08) 36.1 (MAR 07) Plt 337 (MAR 22) 323 (MAR 09) 318 (MAR 08) H 374 (MAR 07) Na L 130 (MAR 22) L 129 (MAR 21) L 127 (MAR 21) L 127 (MAR 21) K 3.9 (MAR 22) L 3.2 (MAR 21) L 2.9 (MAR 08) L 3.1 (MAR 08) Cl L 89 (MAR 22) L 90 (MAR 09) L 88 (MAR 08) L 89 (MAR 07) CO2 29 (MAR 22) 27 (MAR 09) 30 (MAR 08) 28 (MAR 07) BUN 15 (MAR 10) 13 (MAR 09) 13 (MAR 08) 10 (MAR 07) Cr 0.60 (MAR 10) L 0.49 (MAR 09) 0.62 (MAR 08) 0.74 (MAR 07) Glu R 103 (MAR 10) 90 (MAR 09) 101 (MAR 08) H 141 (MAR 07) Ca L 8.3 (MAR 10) L 7.9 (MAR 09) 8.5 (MAR 08) 8.5 (MAR 07) Lactic 2.0 (MAR 07) C 3.2 (MAR 06) C 2.3 (MAR 06) C 2.5 (MAR 05) AST 33 (MAR 07) 26 (MAR 06) 19 (OCT 05) 19 (OCT ) ALT 28 (MAR 07) 21 (MAR 06) 20 (OCT 05) 19 (MAR 13) ALK P 63 (MAR 19) 53 (MAR 18) 51 (OCT 05) 55 (OCT ) T Bili 0.7 (MAR 19) 0.4 (MAR [...] 2D echo is wnl Uncontrolled HTN better hctz on hold due to hyponatremia esophageal dysmotility imipramine is poor choice given issues with urinary retention at present post op ileus scheduele miralax; consider stimulant [...] surgery by Dr. Gastelum 03/16 s/p re-exploration pt states is going home today, I am okay with that I instructed her to discontinue her hctz as it can contribute to hyponatremia I discussed with her the possibility of changing her bb to a ccb. She states she uses the BB for both bp control as well as HR. CCB could treat tachycardia as well as have benefit of anti-htn effect and esophageal dysmotility assistance. Nondihydropiridine class (cardizem) would be useful. She can discuss with her pcp this change, if she continues to have a lot of symtpoms of esophageal regurgitation at home as she has been. As her bps have trended lower here recently, and she states are sometimes lower at home, will not continue norvasc at this time. She should monitor her bps at home to assist her pcp with medication adjustments. documented in this encounter Plan of Treatment Upcoming Encounters Date Type Department Care Team (Late st Contact Info) Description 01/07/2025 1:45 PM EDT Office Visit [facility] [address] [place] [address] Tenzin Lozoya APRN [address] [place] [address] 04/01/2025 2:00 PM EDT Appointment [facility] [address] [facility] [address] [place] [address] documented as of this encounter Visit Diagnoses Not on filedocumented in this encounter Care Teams Food Sampler Relationship Specialty Start Date End Date Js Jack MD [address] [facility] [address] [place] [address] PCP - General General Internal Medicine 02/28/23 documented as of this encounter
--- OUTSIDE RECORDS SUMMARY | 2024-12-07 14:46 | XMS_ITS | Encounter Summary ---
Author Organization [employer] Address [address] [place] [address] Care Team Providers Care Public Policy Coordinator Name Role Phone Guero Schmitt MD, John Primary Care Provider [phone] Encounter Details Date Type Department Care Team (Late st Contact Info) Description 03/18/2019 Transcribed Document [facility] [place] [address] [place] [address] ProviderFrida MD [address] [place] [address] [id number] Social History Tobacco Use Types Packs/Day Years Used Date Smoking Tobacco: Never Assessed Comments Unknown Sex and Gender Information Value Date Recorded Sex Assigned at Not on file Legal Sex Female 5:43 PM CDT Gender Identity Not on file Sexual Orientation Not on file documented as of this encounter Miscellaneous Notes * Cerner Conversion Note - Frida Morataya MD - 03/18/2019 10:16 AM CDT UM Authorization Entered On: 03/18/2019 10:16 EDT Performed On: 03/18/2019 10:16 EDT by LALO MESA RN-Utilization Review Primary Insurance Authorization Authorization and Policy Numbers : Insurance 1 Health [facility] Policy Number: [id number] Authorization Number: Insurance Primary Name : [facility] Authorization Status-Primary : Awaiting callback Authorized Service Begin Date-Primary : 03/18/2019 EDT Authorization Comments-Primary : Uploaded clinicals to [facility] [employer] [employer] via [employer]. Historical Authorization Comments-Primary : No Authorization Comments Found MOSHE, LALO, RN-Utilization Review - 03/18/2019 10:16 EDT documented in this encounter Plan of Treatment Upcoming Encounters Date Type Department Care Team (Late st Contact Info) Description 01/07/2025 1:45 PM EDT Office Visit [facility] [address] [place] [address] Tenzin Lozoya APRN [address] [facility] [address] [place] [address] 04/01/2025 2:00 PM EDT Appointment [facility] [address] [facility] [address] [place] [address] documented as of this encounter Visit Diagnoses Not on filedocumented in this encounter Care Teams Public Policy Coordinator Relationship Specialty Start Date End Date Js Jack MD [address] [facility] [address] [place] [address] PCP - General General Internal Medicine 02/28/23 documented as of this encounter
--- OUTSIDE RECORDS SUMMARY | 2024-12-07 14:46 | XMS_ITS | Encounter Summary ---
Author Organization [employer] Address [address] [place] [address] Care Team Providers Care Liner Man Name Role Phone Guero Schmitt MD, John Primary Care Provider [phone] Encounter Details Date Type Department Care Team (Late st Contact Info) Description 03/18/2019 Transcribed Document [facility] [place] [facility] [place] [address] ProviderFrida MD [address] [place] [address] [id number] Social History Tobacco Use Types Packs/Day Years Used Date Smoking Tobacco: Never Assessed Comments Unknown Sex and Gender Information Value Date Recorded Sex Assigned at Not on file Legal Sex Female 5:43 PM CDT Gender Identity Not on file Sexual Orientation Not on file documented as of this encounter Miscellaneous Notes * Cerner Conversion Note - Frida Morataya MD - 03/18/2019 12:59 PM CDT Rapid Response Team Documentation Entered On: 03/18/2019 13:00 EDT Performed On: 03/18/2019 12:59 EDT by CLARA BARNES RN Rapid Response Event Time Rapid Response Team Called : 03/18/2019 12:20 EDT Rapid Response Team Arrival Time : 03/18/2019 12:21 EDT Rapid Response Team Event End Time : 03/18/2019 13:00 EDT Rapid Response Event Intiated By : Hospital Staff Rapid Response Team Initiation Reason : Peripheral IV start Rapid Response Event Location Type : Other: 436 Rapid Response Team Initiation Reason Details : 20G RFA Rapid Response Admission Diagnosis : Rectocele Rectocele Rapid Response Medical Background : Anxiety (Medical) At risk for sleep apnea (Medical) Hypertension (Medical) Meningioma (Medical) Rapid Response Allergies : Substance Category Reactions Severity Lunesta Drug Swelling Nickel Drug Rash Rapid Response Recent Vital Signs : 03/18/2019 06:47 Systolic Blood Pressure 144 03/18/2019 06:47 Diastolic Blood Pressure 102 03/18/2019 06:47 Heart Rate Monitored 103 03/18/2019 07:00 Heart Rate, Apical 103 03/18/2019 06:47 Respiratory Rate 18 03/18/2019 06:47 Temperature, Fahrenheit 98.8 03/18/2019 08:00 Oxygen Saturation 97 Rapid Response Recent Lab Results : 03/18/2019 09:30 Sodium Level LOW 124 (136-146) 03/18/2019 03:54 Potassium Level 3.8 (3.5-5.1) 03/18/2019 03:54 Calcium Level 8.9 (8.5-10.1) 03/18/2019 03:54 Chloride Level LOW 87 (102-112) 03/18/2019 03:54 Carbon Dioxide Level 27 (21-32) 03/18/2019 03:54 Blood Urea Nitrogen 10 (7-22) 03/18/2019 03:54 Creatinine Level 0.60 (0.55-1.02) 03/18/2019 03:54 Hgb 12.0 (11.2-15.7) 03/18/2019 03:54 Hct 36.0 (34.1-44.9) 03/18/2019 03:54 RBC 4.27 (3.93-5.22) 03/18/2019 03:54 WBC HI 18.8 (3.9-10.0) 03/18/2019 03:54 Platelet Count 335 (163-369) 03/18/2019 09:30 Lactic Acid Level CRIT 3.2 (0.4-2.0) 03/18/2019 05:33 Troponin I Ultra CRIT 0.721 (0.015-0.045) 03/18/2019 03:54 CK MB HI 4.20 (0.50-3.60) 03/18/2019 09:30 Lipase Level 97 (73-393) Weight/BMI : Clinical Weight/BMI CLINICALWEIGHT: 74.55 kg (03/16/19 06:32:00) CLINICALWEIGHT: 74.55 kg (03/16/19 06:20:00) CLINICALWEIGHT: 74.55 kg (03/16/19 05:35:00) CLINICALWEIGHT: 74.55 kg (03/13/19 12:55:00) Body Mass Index: 27.3 kg/m2 High (03/16/19 06:32:00) Body Mass Index: 27.3 kg/m2 High (03/16/19 06:20:00) Body Mass Index: 27.3 kg/m2 High (03/16/19 05:35:00) Body Mass Index: 27.3 kg/m2 High (03/13/19 12:55:00) CLARA BARNES RN - 03/18/2019 12:59 EDT Electronically signed by Bety [email or web address] Conversion Development Executive Cerner at 10/01/2022 5:28 PM CDT documented in this encounter Plan of Treatment Upcoming Encounters Date Type Department Care Team (Late st Contact Info) Description 01/07/2025 1:45 PM EDT Office Visit [facility] [address] [place] [address] Tenzin Lozoya APRN [address] [facility] [address] [place] [address] 04/01/2025 2:00 PM EDT Appointment [facility] [address] [facility] [address] [place] [address] documented as of this encounter Visit Diagnoses Not on filedocumented in this encounter Care Teams Liner Man Relationship Specialty Start Date End Date Js Jack MD [address] [place] [address] PCP - General General Internal Medicine 02/28/23 documented as of this encounter
--- OUTSIDE RECORDS SUMMARY | 2024-12-07 14:46 | XMS_ITS | Encounter Summary ---
Author Organization [employer] Address [address] [place] [address] Care Team Providers Care Activities Attendant Name Role Phone Guero Schmitt MD, John Primary Care Provider [phone] Encounter Details Date Type Department Care Team (Late st Contact Info) Description 03/18/2019 Transcribed Document [facility] [place] [address] [place] [address] ProviderFrida MD [address] [place] [address] [id number] Social History Tobacco Use Types Packs/Day Years Used Date Smoking Tobacco: Never Assessed Comments Unknown Sex and Gender Information Value Date Recorded Sex Assigned at Not on file Legal Sex Female 5:43 PM CDT Gender Identity Not on file Sexual Orientation Not on file documented as of this encounter Miscellaneous Notes * Cerner Conversion Note - Frida Morataya MD - 03/18/2019 10:50 AM CDT Sepsis Screening Tool Entered On: 03/18/2019 13:53 EDT Performed On: 03/18/2019 10:50 EDT by Fay Johnson, ZOHREH Provider Notification Provider Notified of Concerns/Results : SIRS/Sepsis Alert Provider Response : Other: Spoke to doctor directly in the nurse's station. He said he would see her and order some things. Provider Notified Name : MARTI SALDANA MD Provider Notified Time : 03/18/2019 10:51 EDT Fay Johnson RN - 03/18/2019 13:52 EDT Electronically signed by Bety [facility] Conversion Acid Pump Operator Cerner at 10/01/2022 5:29 PM CDT documented in this encounter Plan of Treatment Upcoming Encounters Date Type Department Care Team (Late st Contact Info) Description 01/07/2025 1:45 PM EDT Office Visit [facility] [address] [facility] [address] [place] [address] Tenzin Lozoya APRN [address] [facility] [address] [place] [address] 04/01/2025 2:00 PM EDT Appointment [facility] [address] [facility] [address] [place] [address] documented as of this encounter Visit Diagnoses Not on filedocumented in this encounter Care Teams Activities Attendant Relationship Specialty Start Date End Date Js Jack MD [address] [facility] [address] [place] [address] PCP - General General Internal Medicine 02/28/23 documented as of this encounter
--- OUTSIDE RECORDS SUMMARY | 2024-12-07 14:46 | XMS_ITS | Clinical Summary ---
Author Organization [facility] Address [address] [place] [id number] Phone Care Team Providers Care Furniture Inspector Name Role Phone W, Sulma Unavailable Unavailable Conditions or Problems Problem Name Problem Code Onset Date Status Entry Date Provider Comment Standard Description Annotate Sepsis 34280338 (SNOMED CT) 07/06 Resolved 07/06 Sulma W Sepsis Sepsis 08480105 (SNOMED CT) 07/06 Removed 07/06 Jaya Cali MD Sepsis Sepsis 19433153 (SNOMED CT) 06/27 Inactive 06/27 Sulma W Sepsis Leukocytosis 945687751 (SNOMED CT) 06/27 Active 06/27 Jaya Cali MD Leukocytosis Sepsis 14423143 (SNOMED CT) 06/27 Removed 06/27 Jaya Cali MD Sepsis Nausea 406855056 (SNOMED CT) 06/26 Active 06/26 Zari Tapia Nausea ARF with tubular necrosis 297715640737 101 (SNOMED CT) 06/26 Active 06/26 Zari Tapia Acute renal failure due to tubular necrosis Hypokalemia 33737345 (SNOMED CT) 06/26 Active 06/26 Zari Tapia Hypokalemia Abscess, intra-abdomi nal 87920154 (SNOMED CT) 06/26 Active 06/26 Zari Tapia Acute bacterial peritonitis Medications Medication Instructions Start Date Stop Date Generic Name [facility] Provider INVANZ 1 GM INJECTION SOLUTION RECONSTITUTED Invanz 1GM IV Q24hrs - INPAT ERTAPENEM SODIUM 46761065883 Sandy Ledezma RN INVANZ 1 GM INJECTION SOLUTION RECONSTITUTED Invanz 1G IV Q24hrs- INPAT ERTAPENEM SODIUM 62976128268 Ana María Recinos INVANZ 1 GM INJECTION SOLUTION RECONSTITUTED Invanz 1GM IV Q24hrs - INPAT ERTAPENEM SODIUM 78214513940 Ramona Messer INVANZ 1 GM INJECTION SOLUTION RECONSTITUTED Invanz 1G IV Q24hrs- INPAT ERTAPENEM SODIUM 08667062372 Martha Roe ROSUVASTATIN CALCIUM 20 MG TABS once daily ROSUVASTATIN CALCIUM 99910458591 Haileyshagufta Mensah CLIMARA 0.05 MG/24HR PTWK once weekly ESTRADIOL 22463017251 Hailey Mensah KOMBIGLYZE XR 5-1000 MG ORAL TABLET EXTENDED RELEASE 24 HOUR once daily SAXAGLIPTIN-MET FORMIN 54535797427 Hailey Mensah HYDROXYZINE HCL 25 MG TABS one daily HYDROXYZINE HCL 99604286962 Hailey Micheli ASPIRIN 81 MG CHEW one tablet daily ASPIRIN 65368394879 Hailey Micheli COZAAR 50 MG TABS one daily LOSARTAN POTASSIUM 96872430581 Hailey Mnesah METOPROLOL SUCCINATE ER 50 MG [id number] one time daily METOPROLOL SUCCINATE 93857831631 Hailey Mensah NEXIUM 20 MG PACK one tablet three times daily ESOMEPRAZOLE MAGNESIUM 68901934243 Hailey Mensah Medications Administered No information available. Allergies, Adverse Reactions, Alerts Allergy Name Reaction Description Start Date Severity Statu s Provider LUNESTRA (ESZOPICLONE) Critical Active Mellisa Farrell y LYNESTRENOL Critical Active Rebekah Randolph Results Date Name Value Unit Range Flag Description Lab Report: CBC WITH AUTO DI FFERENTIAL ZZ-GE-unk 0.0 /100 WBC 0.0-0.2 GE use only - fo r [employer] import when terms are not otherwise specified IMMATUREGRAN 0.03 10*3/MM3 0.00-0.05 Immature granulocytes [#/volume] in Blood BASO# 0.06 10*3/mm3 0.00-0.20 Basophils [#/vol ume] in Blood EOS ABSLT 0.18 10*3/uL 0.00-0.40 Eosinophi ls [#/volume] in Blood MONOSCT AUTO 0.56 10*3/uL 0.10-0.90 Monocy tori [#/volume] in Blood by Automated count LYMPHCT AUTO 0.94 10*3/mm3 0.70-3.10 Lymph ocytes [#/volume] in Blood by Automated count ABS NEUTROPH 6.41 10*3/uL 1.70-7.00 Neutro phils [#/volume] in Blood IMM GRANU % 0.4 % 0.0-0.5 Immature granulocytes/100 leukocytes in Blood % EOS AUTO 2.2 % 0.3-6.2 Eosinophil s/100 leukocytes in Blood by Automated count MONOCYTE % 6.8 % 5.0-12.0 Monocytes /100 leukocytes in Blood by Automated count LYMPHOCY BF 11.5 % 19.6-45.3 L lymphoc ytes as percent of body fluid leukocytes NEUTROP BF 78.4 % 42.7-76.0 H Neutroph ils/100 leukocytes in Body fluid PLATELETS 351 10*3/mm3 140-450 Platelets [#/volume] in Blood by Automated count RDW 13.3 % 12.3-15.4 Erythrocyte distribution width [Ratio] by Automated count MCHC 31.4 G/DL 31.5-35.7 L MCHC [Mass/ volume] by Automated count MCH 27.1 pg 26.6-33.0 MCH [Entiti c mass] by Automated count MCV 86.4 fL 79.0-97.0 MCV [Entiti c volume] by Automated count HCT 38.9 % 34.0-46.6 Hematocrit [Volume Fraction] of Blood by Automated count HGB 12.2 g/dL 12.0-15.9 Hemoglobin [Mass/volume] in Blood RBC 4.50 10*6/mm3 3.77-5.28 Erythrocyt es [#/volume] in Blood by Automated count WBC 8.18 10*3/mm3 3.40-10.8 0 Leukocytes [#/volume] in Blood by Automated count Lab Report: SEDIMENTATION RA TE ESR 39 mm/h 0-30 H Erythrocyte sedimentation rate by Westergren method Lab Report: C-REACTIVE PROTE IN CRP 0.61 mg/dL 0.00-0.50 H C reactive protein [Mass/volume] in Serum or Plasma Lab Report: COMPREHENSIVE TX TABOLIC PANEL ANIONGAP 11.0 mmol/L 5.0-15.0 anion gap, serum BUN/CREAT 8.0 7.0-25.0 Urea nitrogen/Creatinine [Mass Ratio] in Serum or Plasma GFRC 65 mL/min/1. 73m2 >60 Glomerular Filtration Rate Calculation BILI TOTAL <0.2 mg/dL 0.2-1.2 L Bilirubin. total [Mass/volume] in Serum or Plasma ALK PHOS 62 U/L 39-117 Alkaline barbara sphatase [Enzymatic activity/volume] in Blood SGOT (AST) 16 U/L 1-32 Aspartate aminotransferase [Enzymatic activity/volume] in Serum or Plasma SGPT (ALT) 9 U/L 1-33 Alanine aminotransferase [Enzymatic activity/volume] in Serum or Plasma ALBUMIN 3.70 g/dL 3.50-5.20 Albumin [Mass/volume] in Serum or Plasma PROTEIN, TOT 6.8 g/dL 6.0-8.5 Protein [Mass/volume] in Serum or Plasma CALCIUM 9.2 mg/dL 8.6-10.5 Calcium [Moles/volume] in Serum or Plasma CO2 29.0 mmol/L 22.0-29.0 Carbon diox lorene, total [Moles/volume] in Venous blood CHLORIDE 98 mmol/L 98-107 Chloride [Moles/volume] in Serum or Plasma POTASSIUM 5.3 mmol/L 3.5-5.2 H Potassium [Moles/volume] in Serum or Plasma SODIUM 138 mmol/L 136-145 Sodium [Moles/volume] in Serum or Plasma CREATININE 0.88 mg/dL 0.57-1.00 Creatini ne [Mass/volume] in Serum or Plasma BUN 7 mg/dL 8-23 L Urea nitrogen [Mass/volume] in Serum or Plasma GLUCOSE SER 75 mg/dL 65-99 Glucose [Mass/volume] in Serum or Plasma Office Visit: rm 1 MEDS REVIEW Done Documenta tion of current medications (procedure) ORALTOBACUSE Never Tobacco smoking status SMOK STATUS Never smoker Tobacco smoking status Plan of Care Type Date Detail Pending order Stat Weekly Labs Patient education Ertapenem%20(I njection)%20(Injectable) Procedures Code Procedure Name Date Entry Date CPT- stat weekly Stat Weekly Labs Vital Signs Date Name Value Unit Description BMI (Body Mass Index) 24.43 kg/m2 Bod y Mass Index (Ratio) Body Temperature 98.3 [degF] temperat ure E&M BP Diastolic 75 mm[Hg] blood pressu re, diastolic BP Systolic 130 mm[Hg] blood pressur e, systolic Heart Rate 76 /min pulse rate Respiratory Rate 14 /min respirat ory rate E&M Weight Measured 156.0 [lb_av] weight E& M Weight Measured 156.0 [lb_av] weight E& M Height 67 [in_us] height E&M Immunizations No information available. Advance Directives No information available.
--- OUTSIDE RECORDS SUMMARY | 2024-12-07 14:46 | XMS_ITS | Encounter Summary ---
Author Organization [employer] Address [address] [place] [address] Care Team Providers Care Carpenter'S Helper Name Role Phone Guero Schmitt MD, John Primary Care Provider [phone] Encounter Details Date Type Department Care Team (Late st Contact Info) Description 03/18/2019 Transcribed Document [facility] [place] [facility] [place] [address] ProviderFrida MD [address] [place] [id number] Social History Tobacco Use Types Packs/Day Years Used Date Smoking Tobacco: Never Assessed Comments Unknown Sex and Gender Information Value Date Recorded Sex Assigned at Not on file Legal Sex Female 5:43 PM CDT Gender Identity Not on file Sexual Orientation Not on file documented as of this encounter Miscellaneous Notes * Cerner Conversion Note - Frida Morataya MD - 03/18/2019 6:34 AM CDT Rapid Response Team Documentation Entered On: 03/18/2019 6:40 EDT Performed On: 03/18/2019 6:34 EDT by sJ Taylor Rn-Resource Rapid Response Event Time Rapid Response Team Called : 03/18/2019 5:30 EDT Rapid Response Team Arrival Time : 03/18/2019 5:35 EDT Rapid Response Team Event End Time : 03/18/2019 6:00 EDT Rapid Response Event Intiated By : Hospital Staff Rapid Response Team Initiation Reason : Chest pain Rapid Response Event Location Type : Other: room 436 Rapid Response Team Initiation Reason Details : Called back to her room again with chesy pain. Rapid Response Admission Diagnosis : Rectocele Rectocele Rapid Response Medical Background : Anxiety (Medical) At risk for sleep apnea (Medical) Hypertension (Medical) Meningioma (Medical) Rapid Response Allergies : Substance Category Reactions Severity Lunesta Drug Swelling Nickel Drug Rash Rapid Response Recent Vital Signs : 03/18/2019 04:26 Systolic Blood Pressure 162 03/18/2019 04:26 Diastolic Blood Pressure 108 03/18/2019 04:26 Heart Rate Monitored 110 03/18/2019 04:09 Heart Rate, Apical 102 03/18/2019 04:08 Respiratory Rate 16 03/18/2019 04:08 Temperature, Fahrenheit 98.5 03/18/2019 04:26 Oxygen Saturation 92 Rapid Response Recent Lab Results : 03/18/2019 03:54 Sodium Level LOW 125 (136-146) 03/18/2019 03:54 Potassium Level 3.8 (3.5-5.1) [...] 03/18/2019 03:54 Platelet Count 335 (163-369) 03/18/2019 03:58 Lactic Acid Level CRIT 2.3 (0.4-2.0) 03/18/2019 05:33 Troponin I Ultra CRIT 0.721 (0.015-0.045) 03/18/2019 03:54 CK MB HI 4.20 (0.50-3.60) 03/17/2019 12:18 Lipase Level 90 (73-393) Weight/BMI : Clinical Weight/BMI CLINICALWEIGHT: 74.55 kg (03/16/19 06:32:00) CLINICALWEIGHT: 74.55 kg (03/16/19 06:20:00) CLINICALWEIGHT: 74.55 kg (03/16/19 05:35:00) CLINICALWEIGHT: 74.55 kg (03/13/19 12:55:00) Body Mass Index: 27.3 kg/m2 High (03/16/19 06:32:00) Body Mass Index: 27.3 kg/m2 High (03/16/19 06:20:00) Body Mass Index: 27.3 kg/m2 High (03/16/19 05:35:00) Body Mass Index: 27.3 kg/m2 High (03/13/19 12:55:00) Js Taylor Rn-Resource - 03/18/2019 6:34 EDT documented in this encounter Plan of Treatment Upcoming Encounters Date Type Department Care Team (Late st Contact Info) Description 01/07/2025 1:45 PM EDT Office Visit [facility] [address] [facility] [address] [place] [address] Tenzin Lozoya APRN [address] [place] [address] 04/01/2025 2:00 PM EDT Appointment [facility] [address] [place] [address] documented as of this encounter Visit Diagnoses Not on filedocumented in this encounter Care Teams Carpenter'S Helper Relationship Specialty Start Date End Date Js Jack MD [address] [facility] [address] [place] [address] PCP - General General Internal Medicine 02/28/23 documented as of this encounter
--- OUTSIDE RECORDS SUMMARY | 2024-12-07 14:46 | XMS_ITS | Encounter Summary ---
Author Organization [employer] Address [address] [place] [address] Care Team Providers Care Staff Readiness Officer Name Role Phone Guero Schmitt MD, John Primary Care Provider [phone] Encounter Details Date Type Department Care Team (Late st Contact Info) Description 03/18/2019 Transcribed Document [facility] [place] Family Medicine [address] [place] [address] ProviderFrida MD [address] [place] [id number] Social History Tobacco Use Types Packs/Day Years Used Date Smoking Tobacco: Never Assessed Comments Unknown Sex and Gender Information Value Date Recorded Sex Assigned at Not on file Legal Sex Female 5:43 PM CDT Gender Identity Not on file Sexual Orientation Not on file documented as of this encounter Miscellaneous Notes * Cerner Conversion Note - Frida Morataya MD - 03/18/2019 7:25 PM CDT [facility] Main OR IntraOp Summary Primary Physician: FLORESITA HORNER MD Finalized Date/Time: 03/18/19 19:44:10 Pt. Name: BRIGIDO ZAZUETA /Sex: 1955 Female Med Rec #: [id number] Physician: Key SIMMONS MD-OB Financial #: [id number] Pt. Type: I Room/Bed: 436/1 Admit/Disch: 03/16/19 09:12:00 - Institution: [facility] [place] [facility]Op Case Attendance Entry 1 Entry 2 Entry 3 Case Attendee FLORESITA HORNER MD GRAHAM, KIMBERLY, Ihsan [place], Power Superintendent Role Performed Surgeon/Proceduralist, Pre School Manager, First Scrub, First First Time In 03/18/19 19:12:00 03/18/19 19:12:00 03/18/19 19:12:00 Time Out 03/18/19 19:52:00 03/18/19 19:52:00 03/18/19 19:52:00 Procedure Laparoscopy Diagnostic Laparoscopy Diagnostic Laparoscopy Diagnostic Other Attendee Superficial Wound Closed By: Last Modified By: CLARA SOLIZ RN GRAHAM, KIMBERLY, CLARA CHAN RN 03/18/19 19:43:37 03/18/19 19:43:37 03/18/19 19:43:37 Entry 4 Entry 5 Entry 6 Case Attendee GLENDA HURST PA STIGERS, DAVID, MD Shannon, Patrick Role Performed Water Purifier, First Anesthesiologist Staff - Other Time In 03/18/19 19:12:00 03/18/19 19:12:00 03/18/19 19:12:00 Time Out 03/18/19 19:52:00 03/18/19 19:52:00 03/18/19 19:52:00 Procedure Laparoscopy Diagnostic Laparoscopy Diagnostic Laparoscopy Diagnostic Other Attendee Superficial Wound Closed By: Last Modified By: CLARA SOLIZ RN GRAHAM, KIMBERLY, CLARA CHAN, ZOHREH 03/18/19 19:43:37 03/18/19 19:43:37 03/18/19 19:43:37 [facility] IntraOp Case Attendance Audit 03/18/19 19:43:37 Metal Plater: MERLE Modifier: MERLE 1 <+> Time Out 1 <*> Procedure Laparoscopy Diagnostic 2 <+> Time Out 2 <*> Procedure Laparoscopy Diagnostic 3 <*> Role Performed CERTIFIED PESTICIDE APPLICATOR 3 <+> Time Out 3 <*> Procedure Laparoscopy Diagnostic 4 <+> Time Out 4 <*> Procedure Laparoscopy Diagnostic 5 <+> Time Out 5 <*> Procedure Laparoscopy Diagnostic 6 <+> Time Out 6 <*> Procedure Laparoscopy Diagnostic 03/18/19 19:41:33 Metal Plater: MERLE Modifier: MERLE 1 <*> Procedure Hernia Repair Internal Laparoscopic, Laparoscopy Diagnostic 2 <*> Procedure Hernia Repair Internal Laparoscopic, Laparoscopy Diagnostic 3 <*> Procedure Hernia Repair Internal Laparoscopic, Laparoscopy Diagnostic 4 <*> Procedure Hernia Repair Internal Laparoscopic, Laparoscopy Diagnostic 5 <*> Procedure Hernia Repair Internal Laparoscopic, Laparoscopy Diagnostic 6 <*> Procedure Hernia Repair Internal Laparoscopic, Laparoscopy Diagnostic 03/18/19 19:41:16 Metal Plater: MERLE Modifier: MERLE 1 <*> Procedure Hernia Repair Internal Laparoscopic 2 <*> Procedure Hernia Repair Internal Laparoscopic 3 <*> Procedure Hernia Repair Internal Laparoscopic 4 <*> Procedure Hernia Repair Internal Laparoscopic 5 <*> Procedure Hernia Repair Internal Laparoscopic 6 <*> Procedure Hernia Repair Internal Laparoscopic 03/18/19 19:41:03 Metal Plater: MERLE Modifier: MERLE 1 <*> Procedure Hernia Repair Internal Laparoscopic, Laparoscopy Diagnostic 2 <*> Procedure Hernia Repair Internal Laparoscopic, Laparoscopy Diagnostic 3 <*> Procedure Hernia Repair Internal Laparoscopic, Laparoscopy Diagnostic 4 <*> Procedure Hernia Repair Internal Laparoscopic, Laparoscopy Diagnostic 5 <*> Procedure Hernia Repair Internal Laparoscopic, Laparoscopy Diagnostic 6 <*> Procedure Hernia Repair Internal Laparoscopic, Laparoscopy Diagnostic 03/18/19 19:40:28 Metal Plater: MERLE Modifier: MERLE 1 <*> Procedure Hernia Repair Internal Laparoscopic 2 <*> Procedure Hernia Repair Internal Laparoscopic 3 <*> Procedure Hernia Repair Internal Laparoscopic 4 <*> Procedure Hernia Repair Internal Laparoscopic 5 <*> Procedure Hernia Repair Internal Laparoscopic 6 <*> Procedure Hernia Repair Internal Laparoscopic 03/18/19 19:29:07 Metal Plater: MERLE Modifier: MERLE <+> 1 Procedure 2 <*> Procedure Hernia Repair Internal Laparoscopic 3 <*> Procedure Hernia Repair Internal Laparoscopic 4 <*> Procedure Hernia Repair Internal Laparoscopic 5 <*> Procedure Hernia Repair Internal Laparoscopic 6 <*> Procedure Hernia Repair Internal Laparoscopic [facility] IntraOp Case Times Entry 1 Patient In Room Time 03/18/19 19:12:00 Out Room Time 03/18/19 19:52:00 Anesthesia Start Time 03/18/19 19:12:00 Stop Time 03/18/19 19:52:00 Anesthesia Ready 03/18/19 19:12:00 Surgery / Procedure Times Start Time 03/18/19 19:25:00 Stop Time 03/18/19 19:42:00 Last Modified By: CLARA SOLIZ RN 03/18/19 19:43:12 [facility] IntraOp Case Times Audit 03/18/19 19:43:12 Metal Plater: MERLE Modifier: MERLE <+> 1 Out Room Time <+> 1 Stop Time <+> 1 Stop Time [facility] IntraOp Cautery Entry 1 ESU Identification Cautery Type Monopolar ESU ID Number [id number] ID Type Hospital Number Cautery Settings Cut Setting 0 Coag Setting 30 ESU Grounding Pad Ground Pad Type Adult Grounding Pad Site Left thigh Grounding Pad CLARA SOLIZ, RN Applied By Grounding Pad Site Intact Skin Condition Before Cautery Grounding Pad Site Intact Skin Condition After Cautery Last Modified By: CLARA SOLIZ RN 03/18/19 19:31:47 S[facility] IntraOp Counts Verification Entry 1 Entry 2 Procedure Laparoscopy Diagnostic Laparoscopy Diagnostic Count Info Count Type Sponge, Sharps, Sponge, Sharps Instrument Counts Verification Baseline/pre-procedure Before wound closure Sequence Count Results Not Applicable Correct, surgeon notified If Incorrect or Waived complete the Counts Action Taken form: If Intentional Retention, complete the Intential Retention form: Counts Performed By Count Performed By Ihsan Jackman, Surgical Ihsan Jackman, Surgical (Scrub) Neurosurgical Physician Assistant Neurosurgical Physician Assistant Count Performed By CLARA SOLIZ, CLARA CHAN RN (RN) Last Modified By: CLARA SOLIZ, CLARA CHAN RN 03/18/19 19:41:34 03/18/19 19:41:34 SJE IntraOp Counts Verification Audit 03/18/19 19:41:34 Metal Plater: MERLE Modifier: MERLE 1 <*> Procedure Hernia Repair Internal Laparoscopic, Laparoscopy Diagnostic 2 <*> Procedure Hernia Repair Internal Laparoscopic, Laparoscopy Diagnostic 03/18/19 19:41:18 Metal Plater: MERLE Modifier: MERLE 1 <*> Procedure Hernia Repair Internal Laparoscopic 2 <*> Procedure Hernia Repair Internal Laparoscopic 03/18/19 19:41:04 Metal Plater: MERLE Modifier: MERLE 1 <*> Procedure Hernia Repair Internal Laparoscopic, Laparoscopy Diagnostic 2 <*> Procedure Hernia Repair Internal Laparoscopic, Laparoscopy Diagnostic 03/18/19 19:40:30 Metal Plater: MERLE Modifier: MERLE 1 <*> Procedure Hernia Repair Internal Laparoscopic 2 <*> Procedure Hernia Repair Internal Laparoscopic [facility] IntraOp Counts Final Entry 1 Procedure Laparoscopy Diagnostic Final Count Info Count Type Sponge, Sharps Counts Verification Skin Closure/end of Sequence procedure Count Results Correct, surgeon notified Counts Performed By Count Performed By Ihsan Jackman Surgical (Scrub) Neurosurgical Physician Assistant Count Performed By CLARA SOLIZ RN (RN) Last Modified By: CLARA SOLIZ RN 03/18/19 19:41:35 SJE IntraOp Counts Final Audit 03/18/19 19:41:35 Metal Plater: MERLE Modifier: MERLE 1 <*> Procedure Hernia Repair Internal Laparoscopic, Laparoscopy Diagnostic 03/18/19 19:41:20 Metal Plater: MERLE Modifier: MERLE 1 <*> Procedure Hernia Repair Internal Laparoscopic 03/18/19 19:41:05 Metal Plater: MERLE Modifier: MERLE 1 <*> Procedure Hernia Repair Internal Laparoscopic, Laparoscopy Diagnostic 03/18/19 19:40:31 Metal Plater: MERLE Modifier: MERLE 1 <*> Procedure Hernia Repair Internal Laparoscopic S[facility] IntraOp Departure from OR Entry 1 Integumentary Assessment Integumentary WDL Assessment WDL Transfer/Handoff Transfer to PACU Phase I Handoff Method Bedside/Face to face Post-op Transport Bed (including Via specialty) Patient Transport CLARA SOLIZ RN, Accompanied by MANN ALEJANDRA MD Last Modified By: CLARA SOLIZ RN 03/18/19 19:33:01 S[facility] IntraOp Dressing and Packing Entry 1 Type Dressing Location abdomen Wound Dressing Item 2x2's Applied By GLENDA HURST PA Last Modified By: CLARA SOLIZ RN 03/18/19 19:32:33 S[facility] IntraOp Fire Risk Assessment Entry 1 Fire Info Surgical Site or 1- Yes Incision Above the Xyphoid Open O2 Source 0- No (Mask or Cannula) Available Ignition 0- No (ESU, Laser, Light Source) Fire Risk 1 Assessment Score Fire Score Fire Risk Yes Assessment Complete Fire Risk CLARA SOLIZ RN Assessment Verified By Fire Risk 03/18/19 19:12:00 Assessment Verified Date/Time Fire Risk Standard Fire Yes Safety Precautions Followed Last Modified By: CLARA SOLIZ RN 03/18/19 19:29:24 S[facility] IntraOp General Case Netsuite Developer 1 Case Information OR OR 01 SJE Case Level 1 Room Verified Yes Wound Class I - Clean Specialty SN General Anesthesia Type General ASA Class 3E Diagnosis Preop Diagnosis abdominal pain Postop Same As Preop Yes Postop Diagnosis abdominal pain Last Modified By: CLARA SOLIZ RN 03/18/19 19:30:39 SJE IntraOp Intraoperative Assessment Entry 1 Handoff Method Bedside/Face to face Valid History / Yes Physical in Chart Preoperative Yes Checklist Reviewed/Evaluated Allergies Reviewed Yes Patient is Latex No Sensitive Isolation Not applicable Precautions Noted Level of WDL Consciousness (WDL = Alert, Oriented to Person, Place, and Time) Skin Assessment Yes Verified Present Upon IVs Arrival to OR Last Modified By: CLARA SOLIZ RN 03/18/19 19:30:02 SJE IntraOp Intraoperative Equipment Entry 1 Equipment Intraop Monitoring Electrocardiogram Three lead placement (ECG) Electrode Placement Blood Pressure Non-Invasive BP Device Source Blood Pressure Arm, left upper Location Pulse Oximeter Hand, right Probe Site Antiembolic Devices Antiembolic Devices Sequential compression device, knee high Antiembolic Device Bilateral Location Scopes Photo/Video Documentation Photo No Video No Last Modified By: CLARA SOLIZ RN 03/18/19 19:31:12 S[facility] IntraOp Medication Admin Entry 1 Medication/Irrigant Anesthetic Cocktail-José Manuel Time Administered 03/18/19 19:32:00 Route of LOCAL Administration Dose Dose 60 Unit of Measure ml Administered By FLORESITA HORNER MD Procedure Irrigation Last Modified By: CLARA SOLIZ RN 03/18/19 19:32:05 SJE IntraOp Patient Positioning Entry 1 Procedure Laparoscopy Diagnostic Body Position Supine Left Arm Position Secured on padded arm board Right Arm Position Secured on padded arm board Left Leg Position Uncrossed, parallel Right Leg Position Uncrossed, parallel Feet Uncrossed Yes Pressure Points Yes Checked Positioning Devices Arm Board, Safety Strap, Thighs Positioned By CLARA SOLIZ RN, GLENDA HURST PA Position Verified Positioning Yes Verified by Anesthesia Positioning Yes Verified by Surgeon Last Modified By: CLARA SOLIZ RN 03/18/19 19:41:34 SJE IntraOp Patient Positioning Audit 03/18/19 19:41:34 Metal Plater: MERLE Modifier: MERLE 1 <*> Procedure Hernia Repair Internal Laparoscopic, Laparoscopy Diagnostic 03/18/19 19:41:19 Metal Plater: MERLE Modifier: MERLE 1 <*> Procedure Hernia Repair Internal Laparoscopic 03/18/19 19:41:04 Metal Plater: MERLE Modifier: MERLE 1 <*> Procedure Hernia Repair Internal Laparoscopic, Laparoscopy Diagnostic 03/18/19 19:40:30 Metal Plater: MERLE Modifier: MERLE 1 <*> Procedure Hernia Repair Internal Laparoscopic SJE IntraOp Sign In Entry 1 Patient, Site, Yes Procedure Identified Surgical Consent Yes Confirmed Relevant Surgical Yes Documents Available Surgical Site N/A Marked by person performing procedure Anesthesia Machine Yes Check Completed Medication Checks Yes Completed Allergies No Airway Difficult No Airway/Aspiration Risk Difficult Yes Airway/Aspiration Intervention Equipment Available Blood Loss Risk No Blood Loss No Intervention Equipment Prepared and Ready Blood Identifiers Yes Verified Per Policy Hypothermia Risk Yes Warming Measures Yes Taken Last Modified By: CLARA SOLIZ RN 03/18/19 19:25:57 SJE Intra Op Sign Out Entry 1 RN Confirmation Surgical Yes Procedure(s) Identified Instrument, Sponge Yes and Sharps Counts Correct/Documented Equipment Problems N/A Documented Specimen Labeled N/A Correctly Urinary Catheter Yes Documented in IView Goins Patient Yes Recovery Concerns Reviewed with Anesthesia Provider, Surgeon and RN Goins Patient Yes Management Concerns Reviewed with Anesthesia Provider, Surgeon and RN Safety Checklist Yes Elements Complete? RN Sign Out CLARA SOLIZ RN Signature RN Sign Out 03/18/19 19:42:00 Signature Date/Time Plan of Care Outcome - [...] related to extraneous objects Last Modified By: CLARA SOLIZ RN 03/18/19 19:44:09 SJE Intra Op Sign Out Audit 03/18/19 19:44:09 Metal Plater: MERLE Modifier: MERLE <+> 1 Urinary Catheter Documented in IView 03/18/19 19:42:59 Metal Plater: MERLE Modifier: MERLE <+> 1 RN Sign Out Signature Date/Time SJE IntraOp Skin Prep Entry 1 Procedure Laparoscopy Diagnostic Prescribed Yes Pre-Surgical Prep Completed Prep Area abdomen Intraop Prep Integumentary WDL Assessment WDL Prep Agents Chloraprep Prep by CLARA SOLIZ RN Hair Removal Last Modified By: CLARA SOLIZ RN 03/18/19 19:41:35 SJE IntraOp Skin Prep Audit 03/18/19 19:41:35 Metal Plater: MERLE Modifier: MERLE 1 <*> Procedure Hernia Repair Internal Laparoscopic, Laparoscopy Diagnostic 03/18/19 19:41:19 Metal Plater: MERLE Modifier: MERLE 1 <*> Procedure Hernia Repair Internal Laparoscopic 03/18/19 19:41:05 Metal Plater: MERLE Modifier: MERLE 1 <*> Procedure Hernia Repair Internal Laparoscopic, Laparoscopy Diagnostic 03/18/19 19:40:30 Metal Plater: MERLE Modifier: MERLE 1 <*> Procedure Hernia Repair Internal Laparoscopic SJE IntraOp Surgical Procedures Entry 1 Procedure Laparoscopy Diagnostic Additional diagnostic laproscopy Procedure Description Primary Procedure Yes Primary Surgeon FLORESITA HORNER MD Start 03/18/19 19:25:00 Stop 03/18/19 19:42:00 Anesthesia Type General Specialty SN General Wound Class I - Clean Last Modified By: CLARA SOLIZ RN 03/18/19 19:42:49 SJE IntraOp Surgical Procedures Audit 03/18/19 19:42:49 Metal Plater: MERLE Modifier: MERLE 1 <*> Procedure Laparoscopy Diagnostic 1 <+> Stop 1 <+> Additional Procedure Description 03/18/19 19:41:42 Metal Plater: MERLE Modifier: MERLE Entry 1 was deleted. Higher numbered entries shifted one position to fill the gap. <-> 1 Procedure Hernia Repair Internal Laparoscopic <-> 1 Primary Procedure Yes <-> 1 Primary Surgeon FLORESITA HORNER MD <-> 1 Specialty <-> 1 Start 03/18/19 19:25:00 <-> 1 Wound Class I - Clean <-> 1 Anesthesia Type General <-> 1 Additional Procedure Description laproscopic repair perforated ulcer 03/18/19 19:41:07 Metal Plater: MERLE Modifier: MERLE 2 <*> Procedure Laparoscopy Diagnostic 2 <+> Primary Procedure 2 <+> Primary Surgeon 2 <+> Specialty 2 <+> Start 2 <+> Wound Class 2 <+> Anesthesia Type 03/18/19 19:40:22 Metal Plater: MERLE Modifier: MERLE <+> 2 Procedure S[facility] IntraOp Time Out Entry 1 Procedure to be Laparoscopy Diagnostic Performed Time Out Time Out Pause Time 03/18/19 19:24:00 All activity Yes suspended (unless life threatening emergency) Team Verbally Correct patient Confirms Information identity, Correct side and site are marked, Consent form is present and accurate, Agreement on the procedure to be done, Correct patient position, Confirm antibiotics have been administered, Confirm the skin prep has dried, Performed in location of procedure after prepped/draped Antibiotic Yes Prophylaxis Administered Or In Progress Within the Last 60 Minutes Beta Devan Yes Administered Venous Yes Thromboembolism Prophylaxis Required Anticipated Critical Events Surgeon None expected Anesthesia Provider None expected Nursing Assures Sterility of instruments Essential Imaging N/A Labeled and Displayed Last Modified By: CLARA SOLIZ RN 03/18/19 19:41:35 [facility] IntraOp Time Out Audit 03/18/19 19:41:35 Metal Plater: MERLE Modifier: MERLE 1 <*> Procedure to be Performed Hernia Repair Internal Laparoscopic, Laparoscopy Diagnostic 03/18/19 19:41:19 Metal Plater: MERLE Modifier: MERLE 1 <*> Procedure to be Performed Hernia Repair Internal Laparoscopic 03/18/19 19:41:05 Metal Plater: MERLE Modifier: MERLE 1 <*> Procedure to be Performed Hernia Repair Internal Laparoscopic, Laparoscopy Diagnostic 03/18/19 19:40:31 Metal Plater: MERLE Modifier: MERLE 1 <*> Procedure to be Performed Hernia Repair Internal Laparoscopic 03/18/19 19:29:54 Metal Plater: MERLE Modifier: MERLE <+> 1 Beta Devan Administered <+> 1 Venous Thromboembolism Prophylaxis Required <+> 1 Antibiotic Prophylaxis Administered Or In Progress Within the Last 60 Minutes <+> 1 Surgeon <+> 1 Anesthesia Provider <+> 1 Nursing Assures <+> 1 Essential Imaging Labeled and Displayed <+> 1 Team Verbally Confirms Information Case Comments <None> Finalized By: CLARA SOLIZ RN Document Signatures Signed By: CLARA SOLIZ RN 03/18/19 19:44 Electronically signed by Darryl Albert Conversion Assistant Manager Of Operations Cerner at 10/01/2022 5:35 PM CDT documented in this encounter Plan of Treatment Upcoming Encounters Date Type Department Care Team (Late st Contact Info) Description 01/07/2025 1:45 PM EDT Office Visit [facility] [address] [address] Tenzin Lozoya APRN [address] [place] [address] 04/01/2025 2:00 PM EDT Appointment [facility] [address] [facility] [address] [place] [address] documented as of this encounter Visit Diagnoses Not on filedocumented in this encounter Care Teams Staff Readiness Officer Relationship Specialty Start Date End Date Guero, Js Schmitt MD [address] [place] [address] PCP - General General Internal Medicine 02/28/23 documented as of this encounter
--- OUTSIDE RECORDS SUMMARY | 2024-12-07 14:47 | XMS_ITS | Encounter Summary ---
Author Organization [employer] Address [address] [place] [address] Care Team Providers Care Side Show Entertainer Name Role Phone Guero Schmitt MD, John Primary Care Provider [phone] Encounter Details Date Type Department Care Team (Late st Contact Info) Description 03/18/2019 Transcribed Document [facility] [place] [facility] [place] [address] ProviderFrida MD [address] [place] [address] Social History Tobacco Use Types Packs/Day Years Used Date Smoking Tobacco: Never Assessed Comments Unknown Sex and Gender Information Value Date Recorded Sex Assigned at Not on file Legal Sex Female 5:43 PM CDT Gender Identity Not on file Sexual Orientation Not on file documented as of this encounter Miscellaneous Notes * Cerner Conversion Note - Frida ProviderMD - 03/18/2019 2:00 AM CDT Hourly Manager Details Entered On: 03/18/2019 3:49 EDT Performed On: 03/18/2019 2:00 EDT by Yari Olson, RN Order Details Transport Mode Order Detail : Wheelchair Isolation Precautions Order Detail : Standard Precautions Order Detail : 0 IV Order Detail : 1 Oxygen Order Detail : 0 Nurse Collect Order Detail : 0 Lift/Transfer : Moderate assist Central Line Order Detail : No Room Service : Appropriate Arterial Line : No Yari Olson, ZOHREH - 03/18/2019 3:49 EDT Electronically signed by Darryl Albert Conversion Crisis Mental Health Therapist Cerner at 10/01/2022 5:26 PM CDT documented in this encounter Plan of Treatment Upcoming Encounters Date Type Department Care Team (Late st Contact Info) Description 01/07/2025 1:45 PM EDT Office Visit [facility] [address] [place] [address] Tenzin Lozoya APRN [address] [place] [address] 04/01/2025 2:00 PM EDT Appointment [facility] Breast [facility] [address] [place] [address] documented as of this encounter Visit Diagnoses Not on filedocumented in this encounter Care Teams Side Show Entertainer Relationship Specialty Start Date End Date Guero, Js Schmitt MD [address] [facility] [address] [place], [place] [id number] PCP - General General Internal Medicine 02/28/23 documented as of this encounter
--- OUTSIDE RECORDS SUMMARY | 2024-12-07 14:47 | XMS_ITS | Encounter Summary ---
Author Organization [employer] Address [address] [place] [address] Care Team Providers Care Furniture Crater Name Role Phone Guero Schmitt MD, John Primary Care Provider [phone] Encounter Details Date Type Department Care Team (Late st Contact Info) Description 03/18/2019 Transcribed Document [facility] [place] [address] ProviderFrida MD [address] [place] [address] Social History Tobacco Use Types Packs/Day Years Used Date Smoking Tobacco: Never Assessed Comments Unknown Sex and Gender Information Value Date Recorded Sex Assigned at Not on file Legal Sex Female 5:43 PM CDT Gender Identity Not on file Sexual Orientation Not on file documented as of this encounter Miscellaneous Notes * Cerner Conversion Note - Frida ProviderMD - 03/18/2019 10:15 AM CDT front counter attendant Form Entered On: 03/18/2019 10:15 EDT Performed On: 03/18/2019 10:15 EDT by LALO MESA RN-Utilization Review UM Additional Information UM Additional Comment : Request for inpt stay. Clinicals to follow. ICD 10: R07.9 LALO MESA RN-Utilization Review - 03/18/2019 10:15 EDT documented in this encounter Plan of Treatment Upcoming Encounters Date Type Department Care Team (Late st Contact Info) Description 01/07/2025 1:45 PM EDT Office Visit [facility] [address] [facility] [address] [place] [address] Tenzin Lozoya APRN [address] [facility] [address] [place] [address] 04/01/2025 2:00 PM EDT Appointment [facility] [address] [facility] [address] [place] [address] documented as of this encounter Visit Diagnoses Not on filedocumented in this encounter Care Teams Furniture Crater Relationship Specialty Start Date End Date Guero, Js Schmitt MD [address] [place] [address] PCP - General General Internal Medicine 02/28/23 documented as of this encounter
--- OUTSIDE RECORDS SUMMARY | 2024-12-07 14:47 | XMS_ITS | Encounter Summary ---
Author Organization [employer] Address [address] [place] [address] Care Team Providers Care Travel Administrator Name Role Phone Guero Schmitt MD, John Primary Care Provider [phone] Encounter Details Date Type Department Care Team (Late st Contact Info) Description 03/18/2019 Transcribed Document [facility] [place] [facility] [place] [address] ProviderFrida MD [address] [place] [id number] Social History Tobacco Use Types Packs/Day Years Used Date Smoking Tobacco: Never Assessed Comments Unknown Sex and Gender Information Value Date Recorded Sex Assigned at Not on file Legal Sex Female 5:43 PM CDT Gender Identity Not on file Sexual Orientation Not on file documented as of this encounter Miscellaneous Notes * Cerner Conversion Note - Frida Morataya MD - 03/18/2019 8:36 AM CDT Consult Phone Call Documentation Entered On: 03/18/2019 8:44 EDT Performed On: 03/18/2019 8:36 EDT by GEORGIA BUSTAMANTE Phone Call for Consults Consult Phone Call/Page Attempt : First call Physician Requested for Consult : VICKY WILSON MD-CAR Physician Covering for Consult : VICKY WILSON MD-CAR Date and Time Call Returned : 03/18/2019 8:44 EDT Physician Returning Call : VICKY WILSON MD-CAR TYE, CHERYL - 03/18/2019 8:44 EDT documented in this encounter Plan of Treatment Upcoming Encounters Date Type Department Care Team (Late st Contact Info) Description 01/07/2025 1:45 PM EDT Office Visit [facility] [address] [place] [address] Tenzin Lozoya APRN [address] [place] [address] 04/01/2025 2:00 PM EDT Appointment [facility] Breast [facility] [address] [facility] [facility] [address] [place] [address] documented as of this encounter Visit Diagnoses Not on filedocumented in this encounter Care Teams Travel Administrator Relationship Specialty Start Date End Date Js Jack MD [address] [facility] [address] [place], [place] [id number] PCP - General General Internal Medicine 02/28/23 documented as of this encounter
--- OUTSIDE RECORDS SUMMARY | 2024-12-07 14:47 | XMS_ITS | Encounter Summary ---
Author Organization [employer] Address [address] [place] [address] Care Team Providers Care Feller Buncher Operator Name Role Phone Guero Schmitt MD, John Primary Care Provider [phone] Encounter Details Date Type Department Care Team (Late st Contact Info) Description 03/18/2019 Transcribed Document [facility] [place] [address] [place] [address] ProviderFrida MD [address] [place] [address] Social History Tobacco Use Types [...] Frida ProviderMD - 03/18/2019 5:00 AM CDT Chart Check - Review Order Profile Entered On: 03/18/2019 3:49 EDT Performed On: 03/18/2019 5:00 EDT by Yari Olson RN Chart Check Powerplans Initiated/Discontinued as Appropriate : Yes All Active Orders Reviewed : Yes Yari Olson RN - 03/18/2019 3:49 EDT Electronically signed by Darryl Albert Conversion [employer]oc [employer] Operations Staff Officer Se at 10/01/2022 5:07 PM CDT documented in this encounter Plan of Treatment Upcoming Encounters Date Type Department Care Team (Late st Contact Info) Description 01/07/2025 1:45 PM EDT Office Visit [address] [place] [address] Tenzin Lozoya APRN [address] [place] [address] 04/01/2025 2:00 PM EDT Appointment [facility] [address] [place] [address] documented as of this encounter Visit Diagnoses Not on filedocumented in this encounter Care Teams Feller Buncher Operator Relationship Specialty Start Date End Date Guero, Js Schmitt MD [address] [facility] [address] [place], [place] [id number] PCP - General General Internal Medicine 02/28/23 documented as of this encounter
--- OUTSIDE RECORDS SUMMARY | 2024-12-07 14:47 | XMS_ITS | Encounter Summary ---
Author Organization [employer] Address [address] [place] [address] Care Team Providers Care Hoop Riveting Machine Operator Name Role Phone Guero Schmitt MD, John Primary Care Provider [phone] Encounter Details Date Type Department Care Team (Late st Contact Info) Description 03/18/2019 Transcribed Document [facility] [place] [address] [place] [address] ProviderFrida MD [address] [place] [address] Social History Tobacco Use Types Packs/Day Years Used Date Smoking Tobacco: Never Assessed Comments Unknown Sex and Gender Information Value Date Recorded Sex Assigned at Not on file Legal Sex Female 5:43 PM CDT Gender Identity Not on file Sexual Orientation Not on file documented as of this encounter Miscellaneous Notes * Cerner Conversion Note - Frida ProviderMD - 03/18/2019 8:12 PM CDT Event Note Entered On: 03/18/2019 20:34 EDT Performed On: 03/18/2019 20:12 EDT by Sonia Wilks RN Event Note Event Date/Time : 03/18/2019 20:12 EDT Description of Event : MD Duvall called via phone and notified of decreased blood pressure. New order to increase flow of I.V. fluids, and continue to monitor. May give 10mg of Ephedrine intravenous if blood pressure does not improve after increasing I.V. fluids. Sonia Wilks RN - 03/18/2019 20:30 EDT Electronically signed by Darryl Albert Conversion Helicopter Utility Aircrewman Cerner at 10/01/2022 5:09 PM CDT documented in this encounter Plan of Treatment Upcoming Encounters Date Type Department Care Team (Late st Contact Info) Description 01/07/2025 1:45 PM EDT Office Visit [facility] [address] [facility] [address] [place] [address] Tenzin Lozoya APRN [address] [facility] [address] [place] [address] 04/01/2025 2:00 PM EDT Appointment [facility] Breast [facility] [address] [facility] [address] [place] [address] documented as of this encounter Visit Diagnoses Not on filedocumented in this encounter Care Teams Hoop Riveting Machine Operator Relationship Specialty Start Date End Date Js Jack MD [address] [facility] [address] [place], [place] [phone] PCP - General General Internal Medicine 02/28/23 documented as of this encounter
--- OUTSIDE RECORDS SUMMARY | 2024-12-07 14:47 | XMS_ITS | Encounter Summary ---
Author Organization [employer] Address [address] [place] [address] Care Team Providers Care Senior Service Aide Name Role Phone Guero Schmitt MD, John Primary Care Provider [phone] Encounter Details Date Type Department Care Team (Late st Contact Info) Description 03/18/2019 Transcribed Document [facility] [place] [facility] [place] [address] ProviderFrida MD [address] [place] [id number] Social History Tobacco Use Types Packs/Day Years Used Date Smoking Tobacco: Never Assessed Comments Unknown Sex and Gender Information Value Date Recorded Sex Assigned at Not on file Legal Sex Female 5:43 PM CDT Gender Identity Not on file Sexual Orientation Not on file documented as of this encounter Miscellaneous Notes * Cerner Conversion Note - Frida Morataya MD - 03/18/2019 9:54 AM CDT Patient: BIANCA ZAZUETA Age: 63 years Sex: Female : 1955 Associated Diagnoses: None Author: VICKY WILSON MD-CAR Subjective Constant abdominal, epigastric and chest pain associated with nausea. Health Status Allergies: Allergic Reactions (Selected) Severity [...] PRN: Nausea/Vomiting Linzess: 145 mcg, Oral, Daily Mylanta: 15 mL, Oral, Q4H, PRN: Abdominal Pain Normal Saline 1,000 mL: 100 mL/Hr, IntraVENous Protonix: 40 mg, IV Push, BID Toprol-XL: 50 mg, Oral, At Bedtime Zofran: 4 mg, IV Push, Q4H, PRN: Nausea acetaminophen-HYDROcodone 325 mg-5 mg oral tablet: 1 Tab, Oral, Q4H, PRN: Pain (Severe 7-10) amLODIPine: 5 mg, Oral, Daily aspirin: 325 mg, Oral, 1-Time clindamycin: 900 mg, 50 mL, 100 mL/Hr, IV Piggyback, Pre Procedure hydrALAZINE: 10 mg, IV Push, Q6H, PRN: Hypertension hydrOXYzine hydrochloride: 25 mg, Oral, At Bedtime labetalol: 10 mg, IV Push, Q6H, PRN: Hypertension losartan: 50 mg, Oral, Daily promethazine: 6.25 [...] release: 1 Cap, Oral, QPM, 0 Refill(s), Home Medications (7) Active Climara 0.05 mg/24 hours weekly transdermal film, extended release 1 Patch, Topical, hydroCHLOROthiazide 25 mg oral tablet 25 mg = 1 Tab, Oral, Daily hydrOXYzine hydrochloride 25 mg oral tablet 25 mg = 1 Tab, Oral, At Bedtime Linzess 145 mcg oral capsule 145 mcg = 1 Cap, Oral, Daily losartan 50 mg oral tablet 50 mg = 1 Tab, Oral, Daily Melatonin 5 mg oral tablet 5 mg = 1 Tab, PRN, Oral, Once a day (at bedtime) metoprolol succinate 50 mg oral capsule, extended release 50 mg = 1 Cap, Oral, QPM , Medications (21) Active Scheduled: (12) amLODIPine 5 mg tab 5 mg 1 Tab, Oral, Daily aspirin EC 325 mg tab 325 mg 1 Tab, Oral, 1-Time aztreonam + NaCl 0.9% 100 mL 2 [...] mL 1,000 mL, IntraVENous, 100 mL/Hr PRN: (8) acetaminophen/HYDROcodone 325/5 mg tab 1 Tab, Oral, Q4H al hydrox/mag hydrox/simeth 30 mL liq 15 mL, Oral, Q4H hydrALAZINE 20 mg/1 mL inj 10 mg 0.5 mL, IV Push, Q6H labetalol 100 mg/20 mL inj 10 mg 2 mL, IV Push, Q6H ondansetron 4 mg/2 mL inj 4 mg 2 mL, IV Push, Q4H prochlorperazine 10 mg/2 mL inj 5 mg 1 mL, IV Push, Q6H promethazine 25 mg/1 mL inj 6.25 mg 0.25 mL, IV Push, Q6H simethicone 80 mg chew tab 80 mg 1 Tab, Oral, Q4H Problem list: Medical Anxiety / SNOMED CT 97199164 / Confirmed At risk for sleep apnea / IMO [id number] / Confirmed Meningioma / SNOMED CT 5467221205 / Confirmed Hypertension / SNOMED CT 1216464936 / Confirmed, Active Problems (4) Anxiety At risk for sleep apnea Hypertension Meningioma Objective VS/Measurements Vital Signs/Vital Measures 03/18/2019 7:00 EDT Heart Rate, Apical 103 bpm HI 03/18/2019 6:47 EDT Systolic Blood Pressure 144 mmHg HI Diastolic Blood Pressure 102 mmHg HI Mean Arterial Pressure (MAP)-BMDI 110 Temperature Source Oral Temperature Mode Fahrenheit Temperature, Fahrenheit 98.8 Deg F Clinical Temperature, C 37.1 Deg C Heart Rate Monitored 103 bpm HI Respiratory Rate 18 Breaths/Min Oxygen Saturation 93 % LOW 03/18/2019 6:00 EDT Oxygen Therapy Mode Nasal cannula 03/18/2019 4:26 EDT Systolic Blood Pressure 162 mmHg HI Diastolic Blood Pressure 108 mmHg HI Mean Arterial Pressure (MAP)-BMDI 121 Heart Rate Monitored 110 bpm HI Oxygen Saturation 92 % LOW 03/18/2019 4:09 EDT Heart Rate, Apical 102 bpm HI 03/18/2019 4:08 EDT Systolic Blood Pressure 163 mmHg HI Diastolic Blood Pressure 109 mmHg HI Mean Arterial Pressure (MAP)-BMDI 116 Temperature Source Oral Temperature Mode Fahrenheit Temperature, Fahrenheit 98.5 Deg F Clinical Temperature, C 36.9 Deg C Heart Rate Monitored 102 bpm HI Respiratory Rate 16 Breaths/Min Oxygen Saturation 88 % LOW 03/18/2019 4:00 EDT Oxygen Therapy Mode Nasal cannula Oxygen Flow Rate 2 Liter/Min 03/18/2019 2:02 EDT Systolic Blood Pressure 145 mmHg HI Diastolic Blood Pressure 96 mmHg HI Mean Arterial Pressure (MAP)-BMDI 108 Temperature Source Oral Temperature Mode Fahrenheit Temperature, Fahrenheit 99.1 Deg F Clinical Temperature, C 37.3 Deg C Heart Rate Monitored 113 bpm HI Respiratory Rate 16 Breaths/Min Oxygen Saturation 91 % LOW 03/17/2019 22:01 EDT Systolic Blood Pressure 171 mmHg HI Diastolic Blood Pressure 96 mmHg HI Mean Arterial Pressure (MAP)-BMDI 113 Temperature Source Oral Temperature Mode Fahrenheit Temperature, Fahrenheit 99.4 Deg F Clinical Temperature, C 37.4 Deg C Heart Rate Monitored 99 bpm Respiratory Rate 18 Breaths/Min Oxygen Saturation 95 % 03/17/2019 22:00 EDT Oxygen Therapy Mode Room air 03/17/2019 21:44 EDT Temperature Source Oral Temperature Mode Fahrenheit Temperature, Fahrenheit 99.4 Deg F 03/17/2019 21:38 EDT Heart Rate, Apical 80 bpm 03/17/2019 21:00 EDT Systolic Blood Pressure 184 mmHg HI Diastolic Blood Pressure 110 mmHg HI Mean Arterial Pressure (MAP)-BMDI 126 Temperature Source Oral 03/17/2019 20:36 EDT Heart Rate, Apical 79 bpm 03/17/2019 19:22 EDT Systolic Blood Pressure 183 mmHg HI Diastolic Blood Pressure 107 mmHg HI Temperature, Fahrenheit 99.1 Deg F Heart Rate Monitored 79 bpm Respiratory Rate 18 Breaths/Min 03/17/2019 19:00 EDT Oxygen Therapy Mode Room air 03/17/2019 15:12 EDT Systolic Blood Pressure 174 [...] 16 Breaths/Min Oxygen Saturation 96 % 03/17/2019 9:00 EDT Oxygen Therapy Mode Room air 03/17/2019 6:15 EDT Systolic Blood Pressure 134 [...] EDT Temperature Source Oral Temperature Mode Fahrenheit , Vitals Signs (last 24 hrs) Last Charted Minimum Maximum Temp 98.8 (MAR 18 06:47) 97.6 (MAR 17 11:18) 99.1 (MAR 17 19:22) Apical HR H 103 (MAR 18 07:00) 79 (MAR 17 20:36) H 103 (MAR 18 07:00) Mon HR 103 (MAR 18:47) 60 (MAR 17 11:18) 113 (MAR 18 02:02) Resp Rate 18 (MAR 18:47) 16 (MAR 17 11:18) 18 (MAR 17 19:22) SBP H 144 (MAR 18 06:47) H 144 (MAR 18 06:47) H 187 (MAR 17 11:18) DBP H 102 (MAR 18 06:47) 90 (MAR 17 11:18) H 110 (MAR 17 21:00) MAP 110 (MAR 18:47) 108 (MAR 18 02:02) 126 (MAR 17 21:00) SpO2 L 93 (MAR 18 06:47) L 88 (MAR 18 04:08) 99 (MAR 17 15:12) General: Alert and oriented. Neck: No carotid bruit, No jugular venous distention. Respiratory: Lungs are clear to auscultation, Respirations are non-labored, Breath sounds are equal, Symmetrical chest wall expansion. Cardiovascular: Normal rate, Regular rhythm, No murmur, No gallop, Good pulses equal in all extremities, Normal peripheral perfusion, No edema. Gastrointestinal: distended with tenderness on deep palpation. Integumentary: Warm, Dry, [place]. Neurologic: Alert, Oriented. Psychiatric: Cooperative, Appropriate mood & affect. Impression and Plan Chest /abdominal and epigastric: The patient has constant pain has not relieved, started post surgery, unable to pass gas this morning associated with nausea, discussed with Dr Delcid seems unlikely cardiac due to the constant nature of it, EKG is unchanged, there is mild bump in the troponin, this seems most likely secondary to demand ischemia associated with uncontrolled hypertension over the night. The patient has elevated WBC and distant and belly with positive bowel sounds associated with mild tenderness, informed [facility] physician may need further evaluation. Hypertension benign essential uncontrolled: The patient blood pressure in the past has been controlled on her medication even low according to her at times, her blood pressure now is elevated due to the pain that she had in her abdomen and chest. The patient not tolerate by mouth medication due to constant nausea, I have therefore advised to give labetalol every 4 hours when necessary for blood pressure above 160. Elevated troponin: This seems most likely secondary to demand ischemia due to very high blood pressure earlier this morning and last night. documented in this encounter Plan of Treatment Upcoming Encounters Date Type Department Care Team (Late st Contact Info) Description 01/07/2025 1:45 PM EDT Office Visit [facility] [address] [place] [address] Tenzin Lozoya APRN [address] [place] [address] 04/01/2025 2:00 PM EDT Appointment [facility] [address] [facility] [address] [place] [address] documented as of this encounter Visit Diagnoses Not on filedocumented in this encounter Care Teams Senior Service Aide Relationship Specialty Start Date End Date Js Jack MD [address] [facility] [address] [place], [place] [id number] PCP - General General Internal Medicine 02/28/23 documented as of this encounter
--- OUTSIDE RECORDS SUMMARY | 2024-12-07 14:47 | XMS_ITS | Clinical Summary ---
Author Organization [employer] Address [address] [place] [address] Care Team Providers Care Senior Service Aide Name Role Phone Guero Schmitt MD, John Primary Care Provider [phone] Allergies Active Allergy Reactions Criticality Noted Date Comments Eszopiclone Anaphylaxis,Other (S ee Comments),Swelling High 04/01/2016 Nickel Rash Low 11/14/2023 Other Other (See Comments) 11/14/2023 1nausea Medications amLODIPine (NORVASC) 5 MG tablet Take 1 tablet (5 mg total) by mouth daily. 11/11/2023 Active DULoxetine (CYMBALTA) 60 MG capsule Take 1 capsule (60 mg total) by mouth daily. 10/10/2023 Active estradioL (CLIMARA) 0.05 mg/24 hr patch 1 patch once a week. 08/23/2023 Active metoprolol succinate (TOPROL-XL) 50 MG 24 hr tablet Take 1 tablet (50 mg total) by mouth daily. 10/27/2023 Active pantoprazole (PROTONIX) 40 MG tablet Take 1 tablet (40 mg total) by mouth daily. Active pyridoxine, vitamin B6, (vitamin B-6) 100 MG tablet Take 1 tablet (100 mg total) by mouth daily. 03/03/2023 Active rosuvastatin (CRESTOR) 20 MG tablet Take 1 tablet (20 mg total) by mouth nightly. Active cholecalciferol , vitamin D3, 1,250 mcg (50,000 unit) tab Take 1 tablet (50,000 Units total) by mouth daily. Active famotidine (PEPCID) 40 MG tablet Take 1 tablet (40 mg total) by mouth nightly. 08/16/2024 Active fexofenadine (TANNER) 180 MG tablet Take 1 tablet (180 mg total) by mouth daily as needed. 08/31/2024 Active hydroCHLOROthia zide (HYDRODIURIL) 12.5 MG tablet Take 1 tablet (12.5 mg total) by mouth daily. 08/31/2024 Active meloxicam (MOBIC) 15 MG tablet (Prior Auth#:[id number]) for 90 Active Horizant 600 mg TbER Take 600 mg by mouth daily for 90 days Take at 5pm. Max Daily Amount: 600 mg 90 tablet 1 09/11/2024 Active Encounters Date Type Department Care Team Description 09/11/2024 1:00 PM EDT Lab Patient Walk-In [facility] [address] [place] [address] Tenzin Lozoya APRN Routine general medical examination at a health care facility (Primary Dx) 09/11/2024 10:45 AM EDT Office Visit [facility] [address] [facility] [address] [place] [address] Tenzin Lozoya APRN Complex sleep apnea syndrome (Primary Dx); Restless legs syndrome (RLS); Overweight (BMI 25.0-29.9); Iron metabolism disorder 09/11/2024 Orders Only [facility] [address] [facility] [address] [place] [address] Tenzin Lozoya APRN Hypoferremia (Primary Dx); Restless legs syndrome (RLS) 09/11/2024 Travel from Last 3 Months Social History Tobacco Use Types Packs/Day Years Used Date Smoking Tobacco: Never Smokeless Tobacco: Never Tobacco Cessation:Counseling Given: Not Answered Interpersonal Safety Answer Date Record ed Family or friends hurt you Not on file 06/25 Family or friends insult you Not on file Family or friends threaten you Not on file 0 06/25/2023 Family or friends scream or curse at you Not on file 06/25/2023 Housing Stability Answer Date Recorded Living situation today Not on file Living situation problems Not on file 2023 Family and Community Support Answer Giacomo e Recorded Help with Day to Day Activities Not on file 06/25/2023 Feeling Lonely or Isolated Not on file 06/25 Educational Attainment Answer Date Dax rded Speak language other than Northern Irish at home Not on file 06/25/2023 Want help with school or training Not on file 06/25/2023 Depression Answer Date Recorded PHQ-2 Risk Not on file 06/25/2023 Disabilities Answer Date Recorded Difficulty concentrating Not on file 024 Difficulty doing errands alone Not on file 0 06/25/2023 Substance Use Answer Date Recorded Used prescription meds for non-medical reasons N ot on file 06/25/2023 Used illegal drugs past 12 months Not on file 06/25/2023 Comments Unknown Sex and Gender Information Value Date Recorded Sex Assigned at Not on file Legal Sex Female 5:43 PM CDT Gender Identity Not on file Sexual Orientation Not on file Last Filed Vital Signs Vital Sign Reading Time Taken Comments Blood Pressure 139/85 09/11/2024 11:36 AM EDT Pulse 65 09/11/2024 11:36 AM EDT Temperature - - Respiratory Rate 16 09/11/2024 11:36 AM EDT Oxygen Saturation 97% 09/11/2024 11:36 AM EDT Inhaled Oxygen Concentration - - Weight 71.7 kg (158 lb) 09/11/2024 11:36 AM EDT Height 165.1 cm (5' 5 ) 09/11/2024 11:36 AM EDT Body Mass Index 26.29 09/11/2024 11:36 AM EDT Plan of Treatment Upcoming Encounters Date Type Department Care Team (Late st Contact Info) Description 01/07/2025 1:45 PM EDT Office Visit [facility] [address] [place] [address] Tenzin Lozoya APRN [address] [place] [address] 04/01/2025 2:00 PM EDT [facility]ointment [facility] [address] [facility] [address] [place] [address] Health Maintenance Due Date Last Done Comments CT Colonography 1955 Colonoscopy 1955 Colorectal Cancer Screening 1955 DXA SCAN 1955 FOBT/FIT 1955 Fit-DNA (Cologuard) 1955 Sigmoidoscopy 1955 Depression Screening (12+) 1966 Hepatitis C Screening 1972 Medicare Initial AWV G0438 07/15/2020 Pneumococcal 50+ years (2 of 2 - PCV) 12/04/2020 12/05/2019 COVID-19 VACCINE (5 - 2023-2 5 season) 2024 04/09/2022, 03/28/2021, 09/11/2020, Additional history exists Falls Risk Screening 06/13/2024 Influenza Vaccine (Season Ended) 2025 04/06/2022, 05/25/2021, 03/24/2020, Additional history exists Tobacco Cessation Counseling and Screening (12+) 09/11/2025 09/11/2024 Breast Cancer Screening 03/19/2026 03/19/20, 02/28/2023, 02/28/2023, Additional history exists DTAP/TDAP/TD VACCINES (2 - T d or Tdap) 02/27/2029 02/27/2019 Respiratory Syncytial Virus (RSV) Adult or (1 - 1-dose 75+ series) 2029 Shingles Vaccine (Zoster) Completed 2020, 02/13/2019, 07/02/2012 Procedures Procedure Name Priority Date/Time Associated Diagnosis Comments CBC HEMOGRAM (SJ-BKR) Routine 09/11/2024 12:39 PM EDT Routine general medical examination at a health care facility IRON AND TIBC Routine 09/11/2024 12:38 PM EDT Iron metabolism disorder FERRITIN Routine 09/11/2024 12:38 PM EDT Iron metabolism disorder MM DIGITAL MAMMO SCREEN WITH DAVIE BILATERAL Routine 03/19/2024 3:25 PM EDT Visit for screening mammogram from Last 3 Months or Most Recently Relevant to Health Maintenance Results * (ABNORMAL) CBC - Hemogram (SJ-BKR) (09/11/2024 12:39 PM EDT) WBC 7.8 3.9 - 10.0 K/ L 09/11/2024 1:01 PM EDT [facility] RBC 4.78 3.93 - 6.08 M/ L 09/11/2024 1:01 PM EDT [facility] Hemoglobin 14.2 11.2 - 15.7 GM/DL 09/11/2024 1:01 PM EDT [facility] Hematocrit 43.9 34.1 - 44.9 % 09/11/2024 1:01 PM EDT [facility] MCV 92 79 - 95 fL 09/11/2024 1:01 PM EDT [facility] MCH 29.7 25.6 - 32.2 pg 09/11/2024 1:01 PM EDT [facility] MCHC 32.3 32.2 - 36.5 GM/DL 09/11/2024 1:01 PM EDT [facility] RDW 13.6 11.6 - 14.4 % 09/11/2024 1:01 PM EDT [facility] Platelets 256 163 - 369 K/CU MM 09/11/2024 1:01 PM EDT [facility] MPV 9.7 9.4 - 12.4 fL 09/11/2024 1:01 PM EDT [facility] nRBC 0(L) 1 - 5 /100 WBC 09/11/2024 1:01 PM EDT [facility] Blood Venipuncture / Unknown 09/11/2024 12:39 PM EDT 09/11/2024 12:39 PM EDT us Tenzin Lozoya APRN LAB BLOOD ORDERABLES Final Result [facility] [address] [phone] * Iron and TIBC (09/11/2024 12:38 PM EDT) Iron 72 50.0 - 170.0 ug/dL 09/11/2024 1:21 PM EDT [facility] TIBC 301 250 - 450 ug/dL 09/11/2024 1:21 PM EDT [facility] % Saturation 24 15 - 55 % 09/11/2024 1:21 PM EDT [facility] UIBC 229 09/11/2024 1:21 PM EDT [facility] Blood Venipuncture / Unknown 09/11/2024 12:38 PM EDT 09/11/2024 12:38 PM EDT [facility] TECHNICIAN LAB BLOOD ORDERABLES Final Result Performing Organization Address [facility]/ZIP Co de Phone Number [facility] [address] [phone] * Ferritin (09/11/2024 12:38 PM EDT) Ferritin 42.00 8.00 - 252.00 ng/mL 09/11/2024 1:21 PM EDT [facility] Blood Venipuncture / Unknown 09/11/2024 12:38 PM EDT 09/11/2024 12:38 PM EDT [facility] FINISHING LAB TECHNICIAN LAB BLOOD ORDERABLES Final Result [facility] [address] [phone] * MM digital mammo screen with davie bilateral (03/19/2024 3:25 PM EDT) Anatomical Region Laterality Modality Breast Bilateral Mammography 03/20/2024 7:20 PM EDT Impressions 03/20/2024 7:22 PM EDT No mammographic evidence of malignancy. BI-RADS CATEGORY: 2 , BENIGN FINDING(S). RECOMMENDED FOLLOW-UP: Routine annual screening mammography. A letter including results and recommendations was sent to the patient. Density notification was provided as well. Patient information entered into a reminder system with a target due date for the next mammogram. At our facility, a atka marker is positioned over a visible skin lesion and a linear marker is used to indicate a scar. A triangular marker is placed on a self reported palpable finding. Mammography does not detect approximately 10-15% of breast cancers. An annual clinical breast exam by the patient's breast care physician and regular monthly self breast exams by the patient are integral parts of breast cancer screening. A normal mammogram does not completely exclude the presence of breast cancer, especially if there is an abnormal finding on physical exam. When clinically indicated, a biopsy should not be deferred because of a normal mammogram report. : 1955 Images reviewed, interpreted, and dictated by Sun Hughes MD Narrative 03/20/2024 7:22 PM EDT BILATERAL SCREENING DIGITAL MAMMOGRAPHY CLINICAL INDICATION: Routine screening TECHNIQUE: Bilateral CC and MLO views were obtained with 2-D and 3D digital acquisitions. The study was read with the assistance of CAD. COMPARISON: Previous studies back to February 25, 2021. FINDINGS: No suspicious mass, calcifications or architectural distortion is seen. Breast parenchyma demonstrates scattered fibroglandular densities bilaterally. No change identified. Js Schmitt MD IMG MAMMOGRAPHY ORDERABLES Fi nal Result from Last 3 Months or Most Recently Relevant to Health Maintenance Insurance MEDICARE PART A B Care Teams Senior Service Aide Relationship Specialty Start Date End Date Js Jack MD [address] [place] [address] PCP - General General Internal Medicine 02/28/23
--- OUTSIDE RECORDS SUMMARY | 2024-12-07 14:47 | XMS_ITS | Encounter Summary ---
Author Organization [employer] Address [address] [place] [address] Care Team Providers Care Manager Studio Name Role Phone Guero Schmitt MD, John Primary Care Provider [phone] Encounter Details Date Type Department Care Team (Late st Contact Info) Description 03/18/2019 Transcribed Document [facility] Family Medicine [address] [place] [address] ProviderFrida MD [address] [place] [address] Social History Tobacco Use Types Packs/Day Years Used Date Smoking Tobacco: Never Assessed Comments Unknown Sex and Gender Information Value Date Recorded Sex Assigned at Not on file Legal Sex Female 5:43 PM CDT Gender Identity Not on file Sexual Orientation Not on file documented as of this encounter Miscellaneous Notes * Cerner Conversion Note - Frida ProviderMD - 03/18/2019 5:00 PM CDT Chart Check - Review Order Profile Entered On: 03/18/2019 16:56 EDT Performed On: 03/18/2019 17:00 EDT by Fay Johnson RN Chart Check Powerplans Initiated/Discontinued as Appropriate : Yes All Active Orders Reviewed : Yes Fay Johnson RN - 03/18/2019 16:56 EDT documented in this encounter Plan of Treatment Upcoming Encounters Date Type Department Care Team (Late st Contact Info) Description 01/07/2025 1:45 PM EDT Office Visit [address] [place] [address] Tenzin Lozoya APRN [address] [place] [address] 04/01/2025 2:00 PM EDT Appointment [facility] [address] [place] [address] documented as of this encounter Visit Diagnoses Not on filedocumented in this encounter Care Teams Manager Studio Relationship Specialty Start Date End Date Guero, Js Schmitt MD [address] [facility] [address] [place], [place] [id number] PCP - General General Internal Medicine 02/28/23 documented as of this encounter
--- OUTSIDE RECORDS SUMMARY | 2024-12-07 14:47 | XMS_ITS | Encounter Summary ---
Author Organization [employer] Address [address] [place] [address] Care Team Providers Care External Relations Manager Name Role Phone Guero Schmitt MD, John Primary Care Provider [phone] Encounter Details Date Type Department Care Team (Late st Contact Info) Description 03/18/2019 Transcribed Document [facility] Family Medicine [facility] [place] [address] ProviderFrida MD [address] [place] [id number] Social History Tobacco Use Types Packs/Day Years Used Date Smoking Tobacco: Never Assessed Comments Unknown Sex and Gender Information Value Date Recorded Sex Assigned at Not on file Legal Sex Female 5:43 PM CDT Gender Identity Not on file Sexual Orientation Not on file documented as of this encounter Miscellaneous Notes * Cerner Conversion Note - Frida Morataya MD - 03/18/2019 5:21 AM CDT Event Note Entered On: 03/18/2019 5:34 EDT Performed On: 03/18/2019 5:21 EDT by Yari Olson RN Event Note Event Date/Time : 03/18/2019 5:21 EDT Event Location : Assigned room Event Details : Change in condition Description of Event : was notified that pt was having chest tightness. Called charge nurse and asked to call MANAGER ETL as pt had issues previously during dayshift. EKG was done. Labs were drawn. pt was given O2 because of sats and given ordered meds per hospitalist. Pt has had high anxiety levels since admission. Hypertension has worsened since her hydrochlorothiazide was discontinued this yesterday am and anxiety has risen. Pt has not complained of any pain, only uncontrolled nausea, vomiting (dry heaving), and chest discomfort. Yari Olson RN - 03/18/2019 5:21 EDT documented in this encounter Plan of Treatment Upcoming Encounters Date Type Department Care Team (Late st Contact Info) Description 01/07/2025 1:45 PM EDT Office Visit [facility] [address] [place] [address] Tenzin Lozoya APRN [address] [place] [address] 04/01/2025 2:00 PM EDT Appointment [facility] Breast [facility] [address] [place] [address] documented as of this encounter Visit Diagnoses Not on filedocumented in this encounter Care Teams External Relations Manager Relationship Specialty Start Date End Date Js Jack MD [address] [facility] [address] [place], [place] [id number] PCP - General General Internal Medicine 02/28/23 documented as of this encounter
--- OUTSIDE RECORDS SUMMARY | 2024-12-07 14:47 | XMS_ITS | Continuity of Care Document ---
Author Organization [place] Mora / Kermit [facility] Address [address] [facility] [address] [place] [address] Care Team Providers Care Telecommunications Analyst Name Role Phone ANGEL LUIS MORA Primary Care Provider LIZZIE Beth Fitting Room Inspector JOHN SIMMONS Escrow Agent Key HORNE Hearing Aid Specialist SOFIA HITCHCOCK Sleep Medicine HARDEEP HENRIQUEZ Neurosurgeon SAYNA PRIETO Plastic Eye Technician ENEDINA HOOVER Supervisor [place] ZIGGY SALAZAR Pain Management Assessment No assessment recorded. Plan of Treatment Reminders Order Date Submit Date Provider Last Modified By Organization Details Last Modified Time Details Appointments ZHEN- [place]- V ([facility]) 60M 2024 10:30A M [facility] CLINICIAN Not available Not available Not available [facility]- 60M MD SALAZAR SS 2024 11:00A M Angel Luis Mora MD, FACP Not available Not available Not available Lab BMP, serum or plasma 2024 025 [place] [facility], [address], [facility] [address], [place], [address], 11/13/2024 06:15:20 Referral None record ed. Procedures None record ed. Surgeries None record ed. Imaging None record ed. Medication Orders None record ed. Patient TargetsNo targets recorded. Patient Instructions Encounter Date Encounter Id Patient Instructions Last Modified By Organization Details Last Modified Time 11/12/2024 [id number] Boo, CSC, UDS also RSV [id number] Not available 11/09/2024 16:42:26 Reason for Referral None Reported. Problems Name Problem SNOMED Code Status Onset Date Resolution Date Notes Provider Name and Address Organization Details Recorded Time Cough 48131661 Active 2015 Cough;Pro blem Note: usual broad different ial. Elements of rhinitis suspect. Chest CT August 2012-see record. Followup recommend ed Not Available [facility] 9 22:03:19 Finding of defecati on Active 2017 Constipat ion; Not Available [facility] 9 22:03:19 Chest pain 13937785 Active 2017 Chest pain; Not Available [facility] 9 22:03:19 Benign neoplasm of meninges 060021314 Active 2016 Meningiom a;Problem Note: yearly MRIs without change-no symptoms were related problem Not Available [facility] 9 22:03:19 Scoliosi s deformit y of spine 075508293 Active 2017 Kyphoscol iosis;Pro blem Note: with spondylol isthesis. Severe Not Available [facility] 9 22:03:19 Benign essentia l hyperten matthew 6927610 Active 2013 Hypertens ion, Benign Essential ; Not Available [facility] 9 22:03:19 Arthropa thy 473883658 Active 2016 Osteoarth ritis; Not Available [facility] 9 22:03:19 Lipoprot ein above referenc e range 932345959 Active 2018 L0 (a) elevation Angel Luis Mora MD [address], [place], [address], [place] [facility] 9 12:29:17 Cystocel e and rectocel e co-occur rent with incomple te uterovag inal prolapse 515343826 Active 2018 Angel Luis Mora MD [address], [place], [address], [place] [facility] 9 13:08:59 Coronary atherosc lerosis 283057152 Active 2018 2-40%-act renea plaque and inflammat ion on CIMT 03/01 Angel Luis Mora MD [address], [place], [address], [place] / [place] 9 12:23:00 Body mass index 25-29 - overweig ht 729640030 Active 2018 Stacey Kelly null, [place] / [place] 9 12:20:39 Finding of body mass index 289707644 Active 2018 Glenny gaspar null, [place] / [place] 9 11:27:51 Gastroes ophageal reflux disease 221995096 Active 2018 EGD 08/29-file d Vidhya, probably Barretts Angel Luis Mora MD [address], [place], [address], [place] [facility] [place] 9 16:50:02 Dean' s esophagu s 560801186 Active 2018 Angel Luis Mora MD [address], [place], [address], [place] / [place] 9 12:07:43 Environm ental allergy 259976669 Active 2020 Angel Luis Mora MD [address], [place], [address], [place] / [place] 1 15:01:32 Hypersom belinda 97579503 Active 2020 Angel Luis Mora MD [address], [place], [address], [place] [facility] [place] 1 15:02:43 Diarrhea 64710729 Active 2020 Angel Luis Mora MD [address], [place], [address], [place] [facility] [place] 1 11:42:25 Easy bruising 434644979 Active 2020 Angel Luis Mora MD [address], [place], [address], [place] [facility] [place] 1 11:43:30 Sleep apnea 49502108 Active 2020 Angel Luis Mora MD [address], [place], [address], [place] 1 15:45:46 Iron deficien cy 68754207 Active 2021 ferritin 11 as of 08/24/21 Angel Luis oMra MD [address], [place], [address], [place] / [place] 2 09:03:15 Osteoart hritis 086711321 Active 2022 Angel Luis Mora MD [address], [place], [address], [place] [facility] [place] 3 14:19:41 Hyponatr emia 55386273 Active 2022 AngelL uis Mora MD [address], [place], [address], [place] / [place] 3 14:19:42 Depressi ve disorder 84025802 Active 2022 Angel Luis Mora MD [address], [place], [address], [place] [facility] [place] 3 13:55:50 Chapped skin 787948448 Active 2023 Angel Luis Mora MD [address], [place], [address], [place] [facility] [place] 4 10:10:15 Chronic cough 75603891 Active 2024 Angel Luis Mora MD [address], [place], [address], [place] [facility] [place] 5 12:08:08 Seasonal affectiv e disorder 830000411 Active 2024 Angel Luis Mora MD [address], [place], [address], [place] 5 16:41:56 Kenna castro 88509448 Active 2024 Angel Luis Mora MD [address], [place], [address], [place] [facility] [place] 5 15:24:48 [...] 1 11:28:21 12/09 primary lumbar discectomy completed Angle Luis Mora MD [address] [facility] [address], [place], [address], [place] 0 13:10:28 11/13 Pain Assessment completed Kaitlin Leonila [place] / [place] 0 11:11:12 11/13 Home Safety Screen completed Kaitlin Leonila [place] / [place] 0 11:09:31 03/16 total excision of bilateral fallopian tubes completed Angel Luis Mora MD [address] [facility] [address], [place], [address], [place] / [place] 9 14:00:41 02/27 Dxa bone density yessy vrt fx completed Kaitlin Leonila [place] 0 15:44:00 10/18 [facility]WE completed Angel Luis Mora MD [address], [place], [address], [place] / [place] 9 13:53:04 [...] Not available Not available Not available 09/11/2018 05167 4 RxNorm React ion: face/ neck swell [...] Available Not Available Prescript ion - Prior Authornael ricks Request 01/11 completed Not Available Not Available [...] by transder mal route. 09/16 completed Claribel Kurtzub - sleep IMPROVEMENT NURSE Not Available Not Available Not Available [employer]pi[employer]eram [...] t Available Vitals Date Recorded Body height Oxygen saturation Oxygen saturation in Arterial blood by Pulse oximetry Heart rate Body mass index (BMI) Body weight Systolic blood pressure Diastolic blood pressure Provider Name and Address Organization Details Last Updated DateTime 5 162.56 cm 97 % 97 % 64 /min 27.4 kg/m2 52944.3 4 g 117 mm[Hg] 80 mm[Hg] Tiagia Saroj [place] [facility] [place] 5 15:11:08 Social History Question Answer Notes LastModified by Organizat ion Details LastModified Time Tobacco Smoking Status Never Smoker Not Available [facility] 04/15/2020 03:38:50 What Is Your Level Of Caffeine Consumption? Moderate 1 Mug Coffee/d, 1 Iced Tea/d [id number] Information not available 04/15/2020 Education 2 Year College [email or web address] Information not available 03/31/2021 Marital Status [email or web address] Informatio n not available 03/31/2021 What Was The Date Of Your Most Recent Tobacco Screening? 02/14/2024 Information not available 02/14/2024 Sex: Unknown Functional Status Question Answer Note LastModified by Organizat ion Details LastModified Time What is your level of alcohol consumption? 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 Information not available 03/31/2021 What is your [...] trivalent, PF 4 completed Sun Mendez null, [place] [facility] [place] 03/02/2024 14:04:12 Tdap 9 completed Not Available [facility] 06/30/2019 02:25:25 zoster, unspecified formulation 3 completed Not Available [facility] 01/19/2023 15:01:25 Influenza, recombinant, quadrivalent, PF 8 completed Not Available [facility] 01/19/2023 15:01:25 Hep A, adult 8 completed Not Available [facility] 01/19/2023 15:01:25 zoster live 9 completed Not Available [facility] 01/19/2023 15:01:25 Influenza, recombinant, quadrivalent, PF 9 completed Not Available [facility] 06/30/2019 02:25:26 COVID-19, mRNA, LNP-S, PF, 30 mcg/0.3 mL dose 1 completed Germania London null, [facility] / [place] 10/05/2022 13:14:56 COVID-19, mRNA, LNP-S, PF, 30 mcg/0.3 mL dose 1 completed Germania Lombarditon null, [facility] [place] [place] / [place] 10/05/2022 13:15:12 pneumococcal polysaccharide PPV23 0 completed Guerita Burr null, [place] - [place] / [place] 12/05/2019 15:26:41 COVID-19, mRNA, LNP-S, bivalent, PF, 50 mcg/0.5 mL or 25mcg/0.25 mL dose 2 completed Germania London null, [place] - [place] / [place] 10/05/2022 13:16:47 Influenza, recombinant, quadrivalent, PF 0 completed Germania London null, [facility] [place] [place] / [place] 03/24/2020 14:12:14 Hep A, adult 9 completed Not Available [facility] 06/30/2019 02:25:25 COVID-19, mRNA, LNP-S, PF, 100 mcg/0.5mL dose or 50 mcg/0.25mL dose 1 completed Guerita Burr null, [facility] [place] [place] / [place] 03/28/2021 12:02:10 Influenza, recombinant, quadrivalent, PF 1 completed Germania London null, [facility] [place] [place] / [place] 05/25/2021 14:49:06 zoster recombinant 1 completed Germania palma, [place] [facility] / [place] 05/25/2021 14:49:06 Influenza, high-dose, quadrivalent, PF 2 completed Guerita Burr null, [place] [facility] [place] 04/06/2022 13:44:54 Past Encounters Encounter ID Performer Location Encounter Start Date Encounter Closed Date Diagnosis/Indication Diagnosis SNOMED-CT Code Diagnosis ICD10 Code Diagnosis Note [id number] Angel Luis Mora MD [facility] [address] [place] [address] 10/15/2024 16:04:23 10/16/2024 15:06:46 Seasonal affective disorder 495315982 F33.1 Benign navya plasm of meninges 728165980 D32.9 Iron deficiency 88639075 E61.1 Benign ess ential hypertension 9123402 I10 Addition of diuretic seems prudent [id number] Angel Luis Mora MD [facility] [address] [place] [address] 11/12/2024 15:02:56 11/13/2024 10:45:52 Body mass index 25-29 - overweight 361448168 Z68.27 Essential hypertension 69337285 I10 controlled Health Concerns Section Related Observation LastModified by Organization Detai ls LastModified Time None Recorded Concern Status LastModified by Organization Details LastModified Time None Recorded Payers Encounter Date Sequence Insurance Name Policy Number Policy Wells Covered Member ID Wells Member ID Guarantor Name 11/12/2024 1 [place]ARE[place] Bianca Ferrari Breeding [id number] Bianca Ferrari Breeding 11/12/2024 2 A[employer] (MEDICARE SUPPLEMENT) Bianca Ferrari Breeding [id number] Bianca Ferrari Breeding Notes Date Note Type Note Provider Name and Address Organization Details Recorded Time 11/12/2024 text/html This patient is having excellent control of blood pressure. Tolerating hydrochlorothiazi de. Readings at home are comparable to those here today. Having some soreness of the right biceps muscle after lifting a grandchild. Discussed simple measures Sun Mendez minerva, [place] [facility] [place] 11/12/2024 15:31:06 OBGyn Episode No OBEpisode recorded.
--- OUTSIDE RECORDS SUMMARY | 2024-12-07 14:47 | XMS_ITS | Encounter Summary ---
Author Organization [facility] Address [address] [place] [address] Care Team Providers Care Flavorings Compounder Name Role Phone Guero Schmitt MD, John Primary Care Provider [phone] Encounter Details Date Type Department Care Team (Late st Contact Info) Description 03/18/2019 Transcribed Document [facility] [address] [place] [address] ProviderFrida MD [address] [place] [address] Social History Tobacco Use Types Packs/Day [...] Morataya MD - 03/18/2019 7:25 PM CDT E Main OR PACU Summary Primary Physician: FLORESITA HORNER MD Finalized Date/Time: 03/18/19 21:31:13 Pt. Name: BIANCA ZAZUETA /Sex: 1955 Female Med Rec #: [id number] Physician: Key SIMMONS MD-OBG Financial #: [id number] Pt. Type: I Room/Bed: 436/1 Admit/Disch: 03/16/19 09:12:00 - [facility]: [facility] [place] PAC[place] Case Times Entry 1 In PACU I 03/18/19 20:03:00 Ready for PACU 03/18/19 21:15:00 Discharge Discharge from PACU 03/18/19 21:15:00 I Last Modified By: Sonia Wilks RN 03/18/19 21:30:50 Finalized By: Sonia Wilks, RN Document Signatures Signed By: Sonia Wilks RN 03/18/19 21:31 Electronically signed by Bety [facility] Conversion Real Time Analyst Cerner at 10/01/2022 5:10 PM CDT documented in this encounter Plan of Treatment Upcoming Encounters Date Type Department Care Team (Late st Contact Info) Description 01/07/2025 1:45 PM EDT Office Visit [facility] [address] [facility] [address] [place] [address] Tenzin Lozoya APRN [address] [place] [address] 04/01/2025 2:00 PM EDT Appointment [facility] [address] [place] [address] documented as of this encounter Visit Diagnoses Not on filedocumented in this encounter Care Teams Flavorings Compounder Relationship Specialty Start Date End Date Js Jack MD [address] [place] [address] PCP - General General Internal Medicine 02/28/23 documented as of this encounter
--- OUTSIDE RECORDS SUMMARY | 2024-12-07 14:47 | XMS_ITS | Encounter Summary ---
Author Organization [facility] Address [address] [place] [address] Care Team Providers Care Braille Operator Name Role Phone Guero Schmitt MD, John Primary Care Provider [phone] Encounter Details Date Type Department Care Team (Late st Contact Info) Description 03/18/2019 Transcribed Document [facility] [place] [address] ProviderFrida MD [address] [place] [address] Social History Tobacco Use Types Packs/Day Years Used Date Smoking Tobacco: Never Assessed Comments Unknown Sex and Gender Information Value Date Recorded Sex Assigned at Not on file Legal Sex Female 5:43 PM CDT Gender Identity Not on file Sexual Orientation Not on file documented as of this encounter Miscellaneous Notes * Cerner Conversion Note - Frida Morataya MD - 03/18/2019 1:46 PM CDT Patient: BIANCA ZAZUETA Age: 63 years Sex: Female : 1955 Associated Diagnoses: None Author: ULISES COPE, MD JULIAN REASON: Basic Information Feeling about the same as yesterday. Still have nausea and pain Review of Systems Respiratory: No shortness of breath. Cardiovascular: No chest pain, No peripheral edema. Gastrointestinal: Constipation, No vomiting. Health Status Allergies: Allergic Reactions (Selected) Severity [...] 1 Cap, Oral, QPM, 0 Refill(s), Medications (22) Active Scheduled: (13) amLODIPine 5 mg tab 5 mg 1 [...] mg inj 40 mg, IV Push, BID piperacillin-tazobactam + NaCl 0.9% 100 mL 3.375 Gram, IV Piggyback, Q6HInt sucralfate 1 g tab 1 Gram 1 [...] Problem list: Medical Anxiety / SNOMED CT 19386093 / Confirmed At risk for sleep apnea / IMO 07256388 / Confirmed Meningioma / SNOMED CT 9486009299 / Confirmed Hypertension / SNOMED CT 2528926810 / Confirmed, Active Problems (4) Anxiety At risk for sleep apnea Hypertension Meningioma Physical Examination VS/Measurements Vitals Signs (last 24 hrs) Last Charted Minimum Maximum Temp 98.8 (MAR 18 06:47) 98.8 (MAR 18 06:47) 99.1 (MAR 17 19:22) Apical HR H 103 (MAR 18 07:00) 79 (MAR 17 20:36) H 103 (MAR 18 07:00) Mon HR 103 (MAR 18:47) 71 (MAR 17 15:12) 113 (MAR 18 02:02) Resp Rate 18 (MAR 18 06:47) 16 (MAR 18 02:02) 18 (MAR 17 19:22) SBP H 144 (MAR 18 06:47) H 144 (MAR 18 06:47) H 184 (MAR 17 21:00) DBP H 102 (MAR 18 06:47) 90 (MAR 17 15:12) H 110 (MAR 17 21:00) MAP 110 (MAR 18 06:47) 108 (MAR 18 02:02) 126 (MAR 17 21:00) SpO2 97 (MAR 18 08:00) L 88 (MAR 18 04:08) 99 (MAR 17 15:12) , Documented vital signs General: Alert and oriented, No acute distress. HENT: Normocephalic, Oral mucosa is moist. Respiratory: Lungs are clear to auscultation, Good effort. Cardiovascular: Normal rate, Regular rhythm, No murmur, No gallop. Gastrointestinal: Soft, Non-tender, Normal bowel sounds. Psychiatric: Appropriate mood & affect, Normal judgment. Review / Management Results review: Labs (Last four charted values) WBC H 18.8 (MAR 18) H 17.5 (MAR 17) H 20.3 (MAR 16) 7.1 (MAR 13) HB 12.0 (MAR 18) 11.2 (MAR 17) 12.6 (MAR 16) 12.9 (MAR 13) HCT 36.0 (MAR 18) 34.8 (MAR 17) 37.7 (MAR 16) 39.9 (MAR 13) Plt 335 (MAR 18) 272 (MAR 17) 285 (MAR 16) 354 (MAR 13) Na L 124 (MAR 18) L 125 (MAR 18) L 123 (MAR 18) L 125 (MAR 05) K 3.8 (MAR 18) 4.2 (MAR 17) 4.2 (MAR 13) Cl L 87 (MAR 18) L 89 (MAR 05) L 98 (MAR 13) CO2 27 (MAR 18) 27 (MAR 17) 30 (MAR 13) BUN 10 (MAR 18) 13 (MAR 17) 15 (MAR 13) Cr 0.60 (MAR 18) 0.65 (MAR 17) 0.75 (MAR 13) Glu R H 131 (MAR 18) H 133 (MAR 17) 90 (MAR 13) Ca 8.9 (MAR 18) 8.5 (MAR 17) 8.6 (MAR 13) Lactic C 3.2 (MAR 18) C 2.3 (MAR 18) C 2.5 (MAR 17) AST 26 (MAR 18) 19 (MAR 17) 19 (MAR 13) ALT 21 (MAR 18) 20 (MAR 17) 19 (MAR 13) ALK P 53 (MAR 18) 51 (MAR 17) 55 (OCT ) T Bili 0.4 (MAR 18) 0.5 (MAR 17) 0.3 (MAR 13) PTN 6.5 (MAR 18) 6.7 (MAR 17) 7.1 (MAR 13) ALB L 3.3 (MAR 18) 3.5 (MAR 05) 3.8 (MAR 13) Lipase 97 (MAR 18) 90 (MAR 17) Troponin C 0.721 (MAR 18) <0.015 (MAR 17) <0.015 (MAR 17) . Impression and Plan Dx and Plan 1- Hyponatremia - Secondary to HCTZ vs release of ADH after surgery and nausea induced. 2- HTn - not controlled. Plan; - Diagnostic labs pending. - Will add amlodipine - Will give a dose of tolvaptan. - Agree with holding HCTZ - Serial sodium levels. documented in this encounter Plan of Treatment Upcoming Encounters Date Type Department Care Team (Late st Contact Info) Description 01/07/2025 1:45 PM EDT Office Visit [facility] [address] [facility] [address] [place] [address] Tenzin Lozoya APRN [address] [place] [address] 04/01/2025 2:00 PM EDT Appointment [facility] [address] [place] [address] documented as of this encounter Visit Diagnoses Not on filedocumented in this encounter Care Teams Braille Operator Relationship Specialty Start Date End Date Js Jack MD [address] [facility] [address] [place] [address] PCP - General General Internal Medicine 02/28/23 documented as of this encounter
--- OUTSIDE RECORDS SUMMARY | 2024-12-07 14:48 | XMS_ITS | Encounter Summary ---
Author Organization [employer] Address [address] [facility] [place] [address] Care Team Providers Care Historical Records Administrator Name Role Phone Guero Schmitt MD, John Primary Care Provider [phone] Encounter Details Date Type Department Care Team (Late st Contact Info) Description 03/19/2019 Transcribed Document [facility] Radiology [address] [place] [address] Amanda Delcid MD [address] [place] [address] [address] [place] [address] Social History Tobacco Use Types Packs/Day Years Used Date Smoking Tobacco: Never Assessed Comments Unknown Sex and Gender Information Value Date Recorded Sex Assigned at Not on file Legal Sex Female 5:43 PM CDT Gender Identity Not on file Sexual Orientation Not on file documented as of this encounter Miscellaneous Notes * Cerner Conversion Note - Amanda Delcid MD - 03/19/2019 4:10 PM EDT Patient: BIANCA ZAZUETA Age: 63 Years Sex: Female : 1955 Subjective The patient had abdominal exploration yesterday with the concern of perforation- Intraoperative findings were -ve for perforation She reports her low sternal pain to be better. Still has poor appetite with worsening nausea and abdominal pain with attempts to eat. No vomiting She had flatus, no BM since surgery last night No fever. Did have elevated BP over night. Vital Signs T: 36.9 ??C TMIN: 36.3 ??C TMAX: 37.3 ??C HR: 96(Monitored) RR: 16 BP: 135/91 SpO2: 94% Oxygen Settings (Last) Oxygen Therapy Mode: Nasal cannula (03/18/19 21:10:00) Oxygen Flow Rate: 2.5 Liter/Min (03/18/19 21:10:00) Intake & Output Totals Last 24 Hours (7a-7a) Input Total: 1457.92 mL Output Total: 1700 mL Balance: -242.08 mL Physical Exam General: alert and coherent without active apparent pain or distress, up in the edge of the bed Eyes: +ve pallor no jaundice. ENT: moist oral mucosa no pharyngeal erythema. Neck: no masses. CVS: normal S1 and S2 regular, well perfused, no edema. Chest: symmetrical expansion, good air entry bilaterally without wheezing or crepitations. Abdomen: soft mildly distended, epigastric and Lower abdominal tenderness, BS heard. LE: no calf swelling or tenderness. Neurological: nonfocal.Skin: no rashes Assessment/Plan # Retrosternal chest pain, probably related to postoperative intrabdominal process- cardiology does not feel it is cardiac. #Elevated troponin presumed type 2 ischemia from uncontrolled HTN Has elevated troponin which cardiology believe not to be related to CAD- may be related to type 2 ischemia from uncontrolled hypertension. EKG without ST elevation or ischemic changes. Chest x-ray without acute findings CTA -ve for PE, showed bilateral effusion and atelectasis 2D echo is pending Continue PPI Start ASA and statin #Uncontrolled HTN on Metoprolol, Losartan and Amlodipine- will increase Amlodipine to 5 mg PO BID with holding parameters Anticpate BP will get better as pain improves #SIRS #Lactic acidosis Leukocytosis, tachycardia. No definite infectious focus Blood cultures are -ve thus far Started empiric zosyn on 03/18 , if blood cultures are -ve at 48 hours would stop #Bilateral pleural effusion Due to volume overload- related to IVF Rate decreased yesterday, will stop today. IS Echo ordered and pending #Hyponatremia Due to SIADH in the setting of postoperative nausea and pain Target nausea and pain control, monitor Na levels, nephrology following #Hypertension on Amlodipine, metoprolol and losartan. PRN Labetolol and Hydralazine # History of GERD. on PPI and Carafate. #Vaginal prolapse status post surgery by Dr. Gastelum 03/16 Status post expl abdominal surgery 03/19 without evidence of acute intraabdominal process # DVT prophylaxis with SCD , will add SQ Lovenox #Hx of meningioma that is being followed closely without intervention, not contributing to ongoing. High risk due to multiple high risk comorbidities outlined above VTE Prophylaxis - Medical Enoxaparin 40 mg, SubCutaneous, Inj, [id number], Routine, Start 03/19/19 8:00:00 EDT (AMANDA DELCID MD) Sequential Compression Device Start: 03/16/19 12:21:00 EDT, Bilateral, Length: Knee High, Continuous Order (Key SIMMONS) Medications acetaminophen-HYDROcodone 325 mg-5 mg oral tablet, 1 Tab, Oral, Q4H, PRN amLODIPine, 5 mg= 1 Tab, Oral, Daily aspirin, 81 mg= 1 Tab, Oral, Daily atorvastatin, 40 mg= 2 Tab, Oral, At Bedtime Azactam + Sodium Chloride 0.9% intravenous solution 100 mL Carafate, 1 Gram= 1 Tab, Oral, AC and at Bedtime Climara 0.05 mg/24 hours weekly transdermal film, extended release, 1 Patch, Topical, clindamycin, 900 mg= 50 mL, IV Piggyback, Pre Procedure Colace, 100 mg= 1 Cap, Oral, BID Compazine, 5 mg= 1 mL, IV Push, Q6H, PRN hydrALAZINE, 10 mg= 0.5 mL, IV Push, Q6H, PRN hydrOXYzine hydrochloride, 25 mg= 1 Tab, Oral, At Bedtime labetalol, 20 mg= 4 mL, IV Push, Q4H, PRN Linzess, 145 mcg= 1 Cap, Oral, Daily losartan, 50 mg= 1 Tab, Oral, Daily Lovenox, 40 mg= 0.4 mL, SubCutaneous, [id number] Mylanta, 15 mL, Oral, Q4H, PRN promethazine, 6.25 mg= 0.25 mL, IV Push, Q6H, PRN Protonix, 40 mg, IV Push, BID simethicone, 80 mg= 1 Tab, Oral, Q4H, PRN Sodium Chloride 0.9% intravenous solution 1,000 mL, 1000 mL, IntraVENous Toprol-XL, 50 mg= 1 Tab, Oral, At Bedtime Zofran, 4 mg= 2 mL, IV Push, Q4H, PRN Zosyn + Sodium Chloride 0.9% intravenous solution 100 mL Lab Results Test Name Test Result Date/Time Sodium Level 126 mmol/L (Low) 03/19/2019 11:24 EDT Sodium Level 126 mmol/L (Low) 03/19/2019 03:38 EDT Sodium Level 124 mmol/L (Low) 03/18/2019 18:07 EDT Sodium Level 125 mmol/L (Low) 03/18/2019 15:18 EDT Potassium Level 3.4 mmol/L (Low) 03/19/2019 03:38 EDT Chloride Level 89 mmol/L (Low) 03/19/2019 03:38 EDT Carbon Dioxide Level 28 mmol/L 03/19/2019 03:38 EDT Anion Gap 12 03/19/2019 03:38 EDT Glucose Level 141 mg/dL (High) 03/19/2019 03:38 EDT Blood Urea Nitrogen 10 mg/dL 03/19/2019 03:38 EDT Creatinine Level 0.74 mg/dL 03/19/2019 03:38 EDT eGFR >60 mL/min/1.73m2 03/19/2019 03:38 EDT eGFR NonAfrican >60 mL/min/1.73m2 03/19/2019 03:38 EDT Bun/Creatinine 13.5 03/19/2019 03:38 EDT Calcium Level 8.5 mg/dL 03/19/2019 03:38 EDT Protein Total 6.8 Gram/dL 03/19/2019 03:38 EDT Albumin Level 3.4 Gram/dL 03/19/2019 03:38 EDT Globulin 3.4 Gram/dL 03/19/2019 03:38 EDT A/G Ratio 1.0 (Low) 03/19/2019 03:38 EDT Bilirubin Total 0.7 mg/dL 03/19/2019 03:38 EDT Alk Phos 63 Units/Liter 03/19/2019 03:38 EDT AST 33 Units/Liter 03/19/2019 03:38 EDT ALT 28 Units/Liter 03/19/2019 03:38 EDT Lactic Acid Level 2.0 mmol/L 03/19/2019 03:38 EDT Osmolality Serum 263 mOsm/kg (Low) 03/19/2019 11:24 EDT Troponin I Ultra 0.923 ng/mL (Critical) 03/19/2019 03:38 EDT WBC 18.5 K/uL (High) 03/19/2019 03:38 EDT RBC 4.34 Million/uL 03/19/2019 03:38 EDT Hgb 12.2 Gram/dL 03/19/2019 03:38 EDT Hct 36.1 % 03/19/2019 03:38 EDT MCV 83.2 fL 03/19/2019 03:38 EDT MCH 28.1 pg 03/19/2019 03:38 EDT MCHC 33.8 Gram/dL 03/19/2019 03:38 EDT Platelet Count 374 K/uL (High) 03/19/2019 03:38 EDT MPV 9.5 fL 03/19/2019 03:38 EDT RDW 12.9 % 03/19/2019 03:38 EDT Neut % 92.8 % (High) 03/19/2019 03:38 EDT Neut # 17.13 K/uL (High) 03/19/2019 03:38 EDT Lymph % 1.5 % (Low) 03/19/2019 03:38 EDT Lymph # 0.28 K/uL (Low) 03/19/2019 03:[address] [facility] % 4.9 % 03/19/2019 03:[address] [facility] # 0.91 K/uL (High) 03/19/2019 03:38 EDT Eos % 0.0 % (Low) 03/19/2019 03:38 EDT Eos # 0.00 K/uL (Low) 03/19/2019 03:38 EDT Baso % 0.1 % 03/19/2019 03:38 EDT Baso # 0.02 K/uL 03/19/2019 03:38 EDT Slide Review No 03/19/2019 03:38 EDT IG# 0 x10(3)/uL 03/19/2019 03:38 EDT IG% 1 % 03/19/2019 03:38 EDT documented in this encounter Plan of Treatment Upcoming Encounters Date Type Department Care Team (Late st Contact Info) Description 01/07/2025 1:45 PM EDT Office Visit [facility] [address] [place] [address] Tenzin Lozoya APRN [address] [facility] [address] [place] [address] 04/01/2025 2:00 PM EDT Appointment [facility] [address] [facility] [address] [place] [address] documented as of this encounter Visit Diagnoses Not on filedocumented in this encounter Care Teams Historical Records Administrator Relationship Specialty Start Date End Date Guero, Js Schmitt MD [address] [place], [place] [id number] PCP - General General Internal Medicine 02/28/23 documented as of this encounter
--- OUTSIDE RECORDS SUMMARY | 2024-12-07 14:48 | XMS_ITS | Encounter Summary ---
Author Organization [facility] [employer] Address [address] [place] [address] Care Team Providers Care District Plant Superintendent Name Role Phone Guero Schmitt MD, John Primary Care Provider [phone] Encounter Details Date Type Department Care Team (Late st Contact Info) Description 03/19/2019 Transcribed Document [facility] [place] [place] Family Medicine [address] [place] [address] ProviderFrida MD [address] [place] [address] Social History Tobacco Use Types Packs/Day Years Used Date Smoking Tobacco: Never Assessed Comments Unknown Sex and Gender Information Value Date Recorded Sex Assigned at Not on file Legal Sex Female 5:43 PM CDT Gender Identity Not on file Sexual Orientation Not on file documented as of this encounter Miscellaneous Notes * Cerner Conversion Note - Frida ProviderMD - 03/19/2019 5:00 PM CDT Chart Check - Review Order Profile Entered On: 03/19/2019 19:48 EDT Performed On: 03/19/2019 17:00 EDT by Fay Johnson RN Chart Check Powerplans Initiated/Discontinued as Appropriate : Yes All Active Orders Reviewed : Yes Fay Johnson RN - 03/19/2019 19:48 EDT documented in this encounter Plan of Treatment Upcoming Encounters Date Type Department Care Team (Late st Contact Info) Description 01/07/2025 1:45 PM EDT Office Visit [address] [place] [address] Tenzin Lozoya APRN [address] [place] [address] 04/01/2025 2:00 PM EDT Appointment [facility] [address] [place] [address] documented as of this encounter Visit Diagnoses Not on filedocumented in this encounter Care Teams District Plant Superintendent Relationship Specialty Start Date End Date Guero, Js Schmitt MD [address] [facility] [address] [place], [place] [id number] PCP - General General Internal Medicine 02/28/23 documented as of this encounter
--- OUTSIDE RECORDS SUMMARY | 2024-12-07 14:48 | XMS_ITS | Encounter Summary ---
Author Organization [employer] Address [address] [place] [address] Care Team Providers Care Er Medical Technician Name Role Phone Guero Schmitt MD, John Primary Care Provider [phone] Encounter Details Date Type Department Care Team (Late st Contact Info) Description 03/13/2019 Transcribed Document [facility] [place] [address] ProviderFrida MD [address] [place] [address] Social History Tobacco Use Types Packs/Day Years Used Date Smoking Tobacco: Never Assessed Comments Unknown Sex and Gender Information Value Date Recorded Sex Assigned at Not on file Legal Sex Female 5:43 PM CDT Gender Identity Not on file Sexual Orientation Not on file documented as of this encounter Miscellaneous Notes * Cerner Conversion Note - Frida Morataya MD - 03/13/2019 12:53 PM CDT Event Note Entered On: 03/13/2019 12:54 EDT Performed On: 03/13/2019 12:53 EDT by Aliya Powers RN Event Note Event Date/Time : 03/13/2019 12:53 EDT Description of Event : notified Jeremy in OR scheduling of nickel allergy Aliya Powers RN - 03/13/2019 12:53 EDT documented in this encounter Plan of Treatment Upcoming Encounters Date Type Department Care Team (Late st Contact Info) Description 01/07/2025 1:45 PM EDT Office Visit [facility] [address] [facility] [address] [place] [address] Tenzin Lozoya APRN [address] [facility] [address] [place] [address] 04/01/2025 2:00 PM EDT Appointment [facility] [address] [facility] [address] [place] [address] documented as of this encounter Visit Diagnoses Not on filedocumented in this encounter Care Teams Er Medical Technician Relationship Specialty Start Date End Date Guero, Js Schmitt MD [address] [place], [place] [id number] PCP - General General Internal Medicine 02/28/23 documented as of this encounter
--- OUTSIDE RECORDS SUMMARY | 2024-12-07 14:48 | XMS_ITS | Encounter Summary ---
Author Organization [employer] Address [address] [place] [address] Care Team Providers Care Chain Carrier Name Role Phone Guero Schmitt MD, John Primary Care Provider [phone] Encounter Details Date Type Department Care Team (Late st Contact Info) Description 03/19/2019 Transcribed Document [facility] [place] [facility] [place] [address] ProviderFrida MD [address] [place] [id number] Social History Tobacco Use Types Packs/Day Years Used Date Smoking Tobacco: Never Assessed Comments Unknown Sex and Gender Information Value Date Recorded Sex Assigned at Not on file Legal Sex Female 5:43 PM CDT Gender Identity Not on file Sexual Orientation Not on file documented as of this encounter Miscellaneous Notes * Cerner Conversion Note - Frida Morataya MD - 03/19/2019 8:19 AM CDT Patient: BIANCA ZAZUETA Age: 63 years Sex: Female : 1955 Associated Diagnoses: None Author: GLENDA LONGORIA MD-NEP Subjective + abd soreness s/p ex lap last night. no CP/SOB. no edema. urinating a little better with IVF overnight Objective VS/Measurements Vitals Signs (last 24 hrs) Last Charted Minimum Maximum Temp 98.5 (MAR 19 06:00) 97.4 (MAR 18 21:10) 99.1 (MAR 18 10:00) Apical HR H 111 (MAR 18 23:37) H 111 (MAR 18 23:34) H 111 (MAR 18 23:34) Mon HR 96 (MAR 19 06:00) 71 (MAR 18 20:45) 115 (MAR 19 00:30) Resp Rate 16 (MAR 19 06:00) 16 (MAR 18 20:03) H 37 (MAR 18 21:10) SBP 135 (MAR 19 06:00) L 71 (MAR 06 20:10) H 172 (MAR 18 22:00) DBP H 91 (MAR 19 06:00) L 46 (MAR 18 20:15) H 116 (MAR 18 22:00) MAP 101 (MAR 19 06:00) 55 (MAR 18 20:15) 129 (MAR 18 22:00) SpO2 94 (MAR 19 06:00) L 89 (MAR 18 20:35) 100 (MAR 19 04:00) Intake & Output Totals Last 24 Hours (7a-7a) Intake (18 Events) Medications (337.92 mL) Oral Intake (20 mL) Surgical Services Intake (1100 mL) Output (4 Events) Norton Catheter (700 mL) Urine Voided (Volume) (1000 mL) Input Total: 1457.92 mL Output Total: 1700 mL Balance: -242.08 mL General: No acute distress, WDWF. Respiratory: Lungs are clear to auscultation, Respirations are non-labored. Cardiovascular: Normal rate, No edema. Gastrointestinal: Soft, Non-distended, + TTP. + surgical wounds.. Genitourinary: no norton, no palp bladder. Integumentary: Warm, Dry, No rash. Neurologic: Alert, Oriented. Psychiatric: Cooperative, Appropriate mood & affect. Results Review Labs (Last four charted values) WBC H 18.5 (MAR 19) H 18.8 (MAR 06) H 17.5 (MAR 05) H 20.3 (MAR 04) HB 12.2 (MAR 07) 12.0 (MAR 06) 11.2 (MAR 05) 12.6 (MAR 04) HCT 36.1 (MAR 07) 36.0 (MAR 06) 34.8 (MAR 05) 37.7 (MAR 04) Plt H 374 (MAR 07) 335 (MAR 06) 272 (MAR 05) 285 (MAR 04) Na L 126 (MAR 07) L 124 (OCT 06) L 125 (MAR 06) L 124 (MAR 06) K L 3.4 (MAR 07) 3.8 (MAR 06) 4.2 (MAR 05) 4.2 (MAR 13) Cl L 89 (MAR 07) L 87 (MAR 06) L 89 (MAR 05) L 98 (MAR 13) CO2 28 (MAR 07) 27 (MAR 06) 27 (MAR 05) 30 (MAR 13) BUN 10 (MAR 19) 10 (MAR 18) 13 (MAR 17) 15 (MAR 13) Cr 0.74 (MAR 07) 0.60 (MAR 06) 0.65 (MAR 05) 0.75 (MAR 13) Glu R H 141 (MAR 19) H 131 (MAR 18) H 133 (MAR 17) 90 (MAR 13) Ca 8.5 (MAR 19) 8.9 (MAR 18) 8.5 (MAR 17) 8.6 (MAR 13) Lactic 2.0 (MAR 19) C 3.2 (MAR 18) C 2.3 (MAR 18) C 2.5 (MAR 17) AST 33 (MAR 19) 26 (MAR 18) 19 (MAR 17) 19 (MAR 13) ALT 28 (MAR 19) 21 (MAR 18) 20 (MAR 17) 19 (MAR 13) ALK P 63 (MAR 19) 53 (MAR 18) 51 (MAR 17) 55 (MAR 13) T Bili 0.7 (MAR 19) 0.4 (MAR 06) 0.5 (MAR 05) 0.3 (MAR 13) PTN 6.8 (MAR 19) 6.5 (MAR 18) 6.7 (MAR 17) 7.1 (MAR 13) ALB 3.4 (MAR 07) L 3.3 (MAR 06) 3.5 (MAR 05) 3.8 (MAR 13) Lipase 97 (MAR 06) 90 (MAR 05) Troponin C 0.923 (MAR 07) C 0.721 (MAR 06) <0.015 (MAR 05) <0.015 (MAR 17) Impression and Plan Hyponatremia: Na stable 126. low serum osm. will get urine osm and Na levels. ? due to dehydration with poor solute intake vs SIADH with N/V. No salt restriction to diet. ok to continue NS for now, but drop Na levels if SIADH HTN: BP stable. Hypokalemia: replace as needed. Check Mg Lactic Acidosis: better today. unsure of surgical findings. Leukocytosis: W/U underway S/P surgery for prolapse uterus Elevated Trpo: cardilology evaluating. High risk and complexity pt. documented in this encounter Plan of Treatment Upcoming Encounters Date Type Department Care Team (Late st Contact Info) Description 01/07/2025 1:45 PM EDT Office Visit [facility] [address] [facility] [address] [place] [address] Tenzin Lozoya APRN [address] [place] [address] 04/01/2025 2:00 PM EDT Appointment [facility] [address] [facility] [address] [place] [address] documented as of this encounter Visit Diagnoses Not on filedocumented in this encounter Care Teams Chain Carrier Relationship Specialty Start Date End Date Js Jack MD [address] [facility] [facility] [address] [place], [place] [id number] PCP - General General Internal Medicine 02/28/23 documented as of this encounter
--- OUTSIDE RECORDS SUMMARY | 2024-12-07 14:48 | XMS_ITS | Encounter Summary ---
Author Organization [employer] Address [address] [place] [address] Care Team Providers Care Part Time Name Role Phone Guero Schmitt MD, John Primary Care Provider [phone] Encounter Details Date Type Department Care Team (Late st Contact Info) Description 03/20/2019 Transcribed Document [facility] [place] Family [place] [facility] [place] [address] ProviderFrida MD [address] [place] [id number] Social History Tobacco Use Types Packs/Day Years Used Date Smoking Tobacco: Never Assessed Comments Unknown Sex and Gender Information Value Date Recorded Sex Assigned at Not on file Legal Sex Female 5:43 PM CDT Gender Identity Not on file Sexual Orientation Not on file documented as of this encounter Miscellaneous Notes * Cerner Conversion Note - Frida Morataya MD - 03/20/2019 12:26 PM CDT Patient: BIANCA ZAZUETA Age: 63 years Sex: Female : 1955 Associated Diagnoses: None Author: LOLA CLAYTON, DO Basic Information feeling overloaded, bloated in abdomen feels tight/pressure around area of diaphragm, more notable with certain positions and deep breathing. states seems to have improved with lasix the other day does get similar sensation at home at times, also relates about twice a week food regurgitation after eating. Has had multiple egds and what sounds like manometry and esophagrams around the time of her Vidhya fundoplication >10 years ago. this was done in [place] recently saw Dr. Amaya as an outpt and had repeat scopes. Has known barretts esophagus and has had to have esophageal dilations before Review of Systems Constitutional: No fever, No [...] 5 mg, IV Push, Q6H, PRN: Nausea/Vomiting Klor-Con 10: 30 mEq, Oral, BID Lasix: 20 mg, IV Push, 1-Time Lasix: 20 mg, IV Push, Daily Linzess: 145 mcg, Oral, Daily Lovenox: 40 mg, SubCutaneous, B12VElg Mylanta: 15 mL, Oral, Q4H, PRN: Abdominal Pain Protonix: 40 mg, IV Push, BID Toprol-XL: [...] PRN: Nausea simethicone: 80 mg, Oral, TID Pending Complete potassium chloride: 10 mEq, 100 mL, 100 mL/Hr, IV Piggyback, Q1H Documented Medications Documented Climara 0.05 mg/24 hours [...] Problem list: Medical Anxiety / SNOMED CT 45279948 / Confirmed At risk for sleep apnea / IMO [id number] / Confirmed Meningioma / SNOMED CT 0764659456 / Confirmed Hypertension / SNOMED CT 9980042552 / Confirmed, Active Problems (4) Anxiety At risk for sleep apnea Hypertension Meningioma Physical Examination VS/Measurements Vitals Signs (last 24 hrs) Last Charted Minimum Maximum Temp 98.9 (MAR 20 06:29) 98.9 (MAR 20 06:29) 98.5 (MAR 19 17:06) Apical HR H 115 (MAR 20 11:18) 97 (MAR 19 22:41) H 115 (MAR 20 11:18) Mon HR 115 (MAR 20 11:18) 87 (MAR 19 17:06) 115 (MAR 20 11:18) Resp Rate 16 (MAR 20 06:29) 16 (MAR 19 15:16) 16 (MAR 19 15:16) SBP H 157 (MAR 20 11:18) 134 (MAR 19 22:41) H 157 (MAR 20 11:18) DBP H 102 (MAR 20 11:18) 71 (MAR 20 02:54) H 106 (MAR 19 17:06) MAP 113 (MAR 20 06:29) 89 (MAR 20 02:54) 117 (MAR 19 17:06) SpO2 95 (MAR 20 06:29) L 93 (MAR 19 17:06) 95 (MAR 20 06:29) Review / Management Results review: Labs (Last four charted values) WBC H 15.3 (MAR 08) H 18.5 (MAR 07) H 18.8 (MAR 06) H 17.5 (MAR 05) HB L 10.9 (MAR 08) 12.2 (MAR 07) 12.0 (MAR 06) 11.2 (OCT 05) HCT L 32.6 (MAR 08) 36.1 (MAR 07) 36.0 (MAR 06) 34.8 (MAR 05) Plt 318 (MAR 08) H 374 (MAR 07) 335 (MAR 06) 272 (OCT 05) Na L 126 (MAR 08) L 125 (MAR 08) L 125 (MAR 07) L 125 (MAR 19) K L 3.1 (MAR 08) L 3.4 (MAR 19) 3.8 (MAR 06) 4.2 (OCT 05) Cl L 88 (MAR 08) L 89 (MAR 07) L 87 (MAR 06) L 89 (MAR 05) CO2 30 (MAR 08) 28 (MAR 19) 27 (MAR 18) 27 (MAR 05) BUN 13 (MAR 08) 10 (OCT 07) 10 (MAR 06) 13 (OCT 05) Cr 0.62 (MAR 08) 0.74 (OCT 07) 0.60 (OCT 06) 0.65 (MAR 05) Glu R 101 (MAR 08) H 141 (MAR 07) H 131 (MAR 06) H 133 (MAR 05) Ca 8.5 (MAR 08) 8.5 (OCT 07) 8.9 (OCT 06) 8.5 (OCT 05) Lactic 2.0 (OCT 07) C 3.2 (OCT 06) C 2.3 (OCT 06) C 2.5 (OCT 05) AST 33 (OCT 07) 26 (OCT 06) 19 (OCT 05) 19 (OCT 01) ALT 28 (MAR 07) 21 (OCT 06) 20 (OCT 05) 19 (OCT 01) ALK P 63 (MAR 07) 53 (OCT 06) 51 (OCT 05) 55 (OCT 01) T Bili 0.7 (MAR 19) 0.4 (MAR [...] function. No hemodynamically significant valvular heart disease. Impression and Plan Elevated troponin presumed type 2 ischemia from uncontrolled HTN Has elevated troponin which cardiology believe not to be related to CAD- may be related to type 2 ischemia from uncontrolled hypertension. EKG without ST elevation or ischemic changes. Chest x-ray without acute findings CTA -ve for PE, showed bilateral effusion and atelectasis; pro bnp quite elevated, will give iv lasix, replace KCl 2D echo is wnl Uncontrolled HTN adjust meds as needed hctz on hold due to hyponatremia SIRS Lactic acidosis Leukocytosis, tachycardia. No definite infectious focus cultures are -ve thus far Started empiric zosyn on 03/18 , if blood cultures are -ve at 48 hours would stop Bilateral pleural effusion with generalized volume overload recheck kub and cxr today d/w Dr. Collado, hold on diuretic therapy pending bladder scanning and possible tolvaptan trial Hyponatremia likely due to SIADH in the postop setting; some evidence volume overload with pleural effusions recheck xrays History of GERD. on PPI and Carafate. Vaginal prolapse status post surgery by Dr. Gastelum 03/16 re-exploration d/w Dr. Collado, hold off on diuresis; will have trial tolvaptan follow na time 33mins documented in this encounter Plan of Treatment Upcoming Encounters Date Type Department Care Team (Late st Contact Info) Description 01/07/2025 1:45 PM EDT Office Visit [facility] [address] [facility] [address] [place] [address] Tenzin Lozoya APRN [address] [facility] [address] [place] [address] 04/01/2025 2:00 PM EDT Appointment [facility] [address] [facility] [address] [place] [address] documented as of this encounter Visit Diagnoses Not on filedocumented in this encounter Care Teams Part Time Relationship Specialty Start Date End Date Guero, Js Schmitt MD [address] [place], [place] [id number] PCP - General General Internal Medicine 02/28/23 documented as of this encounter
--- OUTSIDE RECORDS SUMMARY | 2024-12-07 14:48 | XMS_ITS | Encounter Summary ---
Author Organization [employer] Address [address] [place] [address] Care Team Providers Care Business Office Assistant Name Role Phone Guero Schmitt MD, John Primary Care Provider [phone] Encounter Details Date Type Department Care Team (Late st Contact Info) Description 03/20/2019 Transcribed Document [facility] [place] [address] [place] [address] ProviderFrida MD [address] [place] [address] Social History Tobacco Use Types Packs/Day Years Used Date Smoking Tobacco: Never Assessed Comments Unknown Sex and Gender Information Value Date Recorded Sex Assigned at Not on file Legal Sex Female 5:43 PM CDT Gender Identity Not on file Sexual Orientation Not on file documented as of this encounter Miscellaneous Notes * Cerner Conversion Note - Frida ProviderMD - 03/20/2019 5:00 AM CDT Chart Check - Review Order Profile Entered On: 03/20/2019 5:05 EDT Performed On: 03/20/2019 5:00 EDT by Glenny Garcia, Rn Chart Check Powerplans Initiated/Discontinued as Appropriate : Yes All Active Orders Reviewed : Yes Glenny Garcia Rn - 03/20/2019 5:05 EDT documented in this encounter Plan of Treatment Upcoming Encounters Date Type Department Care Team (Late st Contact Info) Description 01/07/2025 1:45 PM EDT Office Visit [address] [place] [address] Tenzin Lozoya APRN [address] [place] [address] 04/01/2025 2:00 PM EDT Appointment [facility] [address] [place] [address] documented as of this encounter Visit Diagnoses Not on filedocumented in this encounter Care Teams Business Office Assistant Relationship Specialty Start Date End Date Guero, Js Schmitt MD [address] [facility] [address] [place] [id number] PCP - General General Internal Medicine 02/28/23 documented as of this encounter
--- OUTSIDE RECORDS SUMMARY | 2024-12-07 14:48 | XMS_ITS | Encounter Summary ---
Author Organization [employer] Address [address] [place] [address] Care Team Providers Care Pipe Organ Builder Name Role Phone Guero Schmitt MD, John Primary Care Provider [phone] Encounter Details Date Type Department Care Team (Late st Contact Info) Description 03/20/2019 Transcribed Document [facility] [place] [facility] [place] [address] ProviderFrida MD [address] [place] [address] Social History Tobacco Use Types Packs/Day Years Used Date Smoking Tobacco: Never Assessed Comments Unknown Sex and Gender Information Value Date Recorded Sex Assigned at Not on file Legal Sex Female 5:43 PM CDT Gender Identity Not on file Sexual Orientation Not on file documented as of this encounter Miscellaneous Notes * Cerner Conversion Note - Frida Morataya MD - 03/20/2019 8:39 AM CDT Patient: BIANCA ZAZUETA Age: 63 years Sex: Female : 1955 Associated Diagnoses: None Author: GLENDA LONGORIA MD-NEP Subjective + abd soreness. no CP/SOB. feels swollen. having difficulty with urination. Objective VS/Measurements Vitals Signs (last 24 hrs) Last Charted Minimum Maximum Temp 98.9 (MAR 20 06:29) 98.9 (MAR 20 06:29) 98.9 (MAR 19 11:14) Apical HR 97 (MAR 19 22:41) 97 (MAR 19 22:41) 97 (MAR 19 22:41) Mon HR 87 (MAR 20 06:29) 87 (MAR 19 17:06) 87 (MAR 19 17:06) Resp Rate 16 (MAR 20 06:29) 15 (MAR 19 11:14) 16 (MAR 19 15:16) SBP H 156 (MAR 20 06:29) 134 (MAR 19 22:41) H 156 (MAR 20 06:29) DBP H 98 (MAR 20 06:29) 71 (MAR 08 02:54) H 106 (MAR 19 17:06) MAP 113 (MAR 20 06:29) 89 (MAR 20 02:54) 117 (MAR 19 17:06) SpO2 95 (MAR 20 06:29) L 93 (MAR 19 17:06) 100 (MAR 19 11:14) Intake & Output Totals Last 24 Hours (7a-7a) Intake (8 Events) Medications (221.1 mL) Output (2 Events) Urine Voided (Volume) (600 mL) Input Total: 221.1 mL Output Total: 600 mL Balance: -378.9 mL General: No acute distress, WDWF. Respiratory: Lungs are clear to auscultation, Respirations are non-labored. Cardiovascular: Normal rate, No edema. Gastrointestinal: Soft, + Mild TTP. + surgical wounds. . Genitourinary: No costovertebral angle tenderness, no norton, + abd fullness. Integumentary: Warm, Dry, No rash. Neurologic: Alert, Oriented. Psychiatric: Cooperative, Appropriate mood & affect. Results Review Labs (Last four charted values) WBC H 15.3 (MAR 08) H 18.5 (MAR 07) H 18.8 (MAR 06) H 17.5 (MAR 05) HB L 10.9 (MAR 08) 12.2 (MAR 07) 12.0 (MAR 06) 11.2 (MAR 05) HCT L 32.6 (MAR 08) 36.1 (MAR 07) 36.0 (MAR 06) 34.8 (OCT 05) Plt 318 (MAR 08) H 374 (MAR 07) 335 (MAR 06) 272 (OCT 05) Na L 125 (MAR 08) L 125 (MAR 07) L 125 (MAR 07) L 126 (MAR 07) K L 3.1 (MAR 08) L 3.4 (MAR 07) 3.8 (MAR 06) 4.2 (MAR 05) Cl L 88 (MAR 08) L 89 (MAR 07) L 87 (MAR 06) L 89 (MAR 05) CO2 30 (MAR 20) 28 (MAR 19) 27 (MAR 06) 27 (MAR 05) BUN 13 (MAR 08) 10 (MAR 07) 10 (MAR 06) 13 (MAR 05) Cr 0.62 (MAR 08) 0.74 (MAR 19) 0.60 (MAR 18) 0.65 (MAR 05) Glu R 101 (MAR 20) H 141 (MAR 07) H 131 (MAR 06) H 133 (MAR 05) Ca 8.5 (MAR 20) 8.5 (MAR 19) 8.9 (MAR 18) 8.5 (MAR 17) Lactic 2.0 (MAR 19) C 3.2 (MAR 06) C 2.3 (MAR 06) C 2.5 (MAR 05) AST 33 (MAR 19) 26 (MAR 18) 19 (MAR 17) 19 (MAR 13) ALT 28 (MAR 19) 21 (MAR 18) 20 (MAR 17) 19 (MAR 13) ALK P 63 (MAR 19) 53 (MAR 18) 51 (MAR 05) 55 (MAR 13) T Bili 0.7 (MAR 19) 0.4 (MAR 06) 0.5 (MAR 05) 0.3 (MAR 13) PTN 6.8 (MAR 19) 6.5 (MAR 06) 6.7 (MAR 05) 7.1 (MAR 13) ALB 3.4 (MAR 07) L 3.3 (MAR 06) 3.5 (MAR 17) 3.8 (MAR 13) Lipase 97 (MAR 06) 90 (OCT 05) Troponin C 0.923 (MAR 07) C 0.721 (MAR 06) <0.015 (MAR 05) <0.015 (MAR 17) Impression and Plan Hyponatremia: Na stable 126. Still with low serum osm. urine osm still pending after 2 days. Urine Na level not sig low. Pt not overloaded. ? due to dehydration with poor solute intake vs SIADH with N/V. need Urine Osm. No salt restriction to diet. ok to continue NS for now, but may drop Na levels if SIADH. Use tolvaptan if diuretic needed. HTN: BP stable. Hypokalemia: replace as needed. Check Mg Lactic Acidosis: better. unsure of surgical findings. Leukocytosis: improving W/U underway S/P surgery for prolapse uterus. Elevated Trop: cardiology evaluating. Volume: Starting to developed edema. poor intake with neg volume overnight. CT scan chest with possible CHF, but ECHO normal and no other sign of CHF. + difficulty with voiding. will get baldder scan. if bladder empty, then would give tolvaptan High risk and complexity pt. documented in this encounter Plan of Treatment Upcoming Encounters Date Type Department Care Team (Late st Contact Info) Description 01/07/2025 1:45 PM EDT Office Visit [facility] [address] [facility] [address] [place] [address] Tenzin Lozoya APRN [address] [place] [address] 04/01/2025 2:00 PM EDT Appointment [facility] Breast [facility] [address] [place] [address] documented as of this encounter Visit Diagnoses Not on filedocumented in this encounter Care Teams Pipe Organ Builder Relationship Specialty Start Date End Date Js Jack MD [address] [facility] [address] [place] [address] PCP - General General Internal Medicine 02/28/23 documented as of this encounter
--- OUTSIDE RECORDS SUMMARY | 2024-12-07 14:48 | XMS_ITS | Encounter Summary ---
Author Organization [employer] Address [address] [place] [address] Care Team Providers Care Manager Practice Name Role Phone Guero Schmitt MD, John Primary Care Provider [phone] Encounter Details Date Type Department Care Team (Late st Contact Info) Description 03/19/2019 Transcribed Document [facility] [place] [facility] [place] [address] ProviderFrida MD [address] [place] [id number] Social History Tobacco Use Types Packs/Day Years Used Date Smoking Tobacco: Never Assessed Comments Unknown Sex and Gender Information Value Date Recorded Sex Assigned at Not on file Legal Sex Female 5:43 PM CDT Gender Identity Not on file Sexual Orientation Not on file documented as of this encounter Miscellaneous Notes * Cerner Conversion Note - Frida Morataya MD - 03/19/2019 6:55 PM CDT Spiritual Care Short Form Entered On: 03/19/2019 19:04 EDT Performed On: 03/19/2019 18:55 EDT by VENITA MOYA General Information, Spiritual Care Spiritual Care Referred by : Global Marketing Coordinator initiated Reason for Visit : Initial Ministry Provided to : Patient Intervention/Comment/Summary Points : Pt came to hospital for what was to be one-day outpatient surgery, but due to some complications she was admitted. Her appetite is not good. On a semi-liquid diet. She has a Roman Catholic background, her is Presbyterian. She has a fairly liberal orientation. Very appreciative of pastoral visit and prayer. Spiritual/Emotional Acuity : Medium Spiritual/Emotional Acuity Comment : Medium to high Spiritual Framework : Integrated, provides strength/resource Active in a Orthodox/Lidia Group : Nominally Spiritism Preference : Jainism Global Marketing Coordinator Follow-up Needed : Yes VENITA MOYA - 03/19/2019 18:55 EDT documented in this encounter Plan of Treatment Upcoming Encounters Date Type Department Care Team (Late st Contact Info) Description 01/07/2025 1:45 PM EDT Office Visit [facility] [address] [place] [address] Tenzin Lozoya APRN [address] [place] [address] 04/01/2025 2:00 PM EDT [facility]ointment [facility] [address] [place] [address] documented as of this encounter Visit Diagnoses Not on filedocumented in this encounter Care Teams Manager Practice Relationship Specialty Start Date End Date Js Jack MD [address] [facility] [address] [place], [place] [id number] PCP - General General Internal Medicine 02/28/23 documented as of this encounter
--- OUTSIDE RECORDS SUMMARY | 2024-12-07 14:48 | XMS_ITS | Encounter Summary ---
Author Organization [employer] Address [address] [place] [address] Care Team Providers Care Customer Servicer Name Role Phone Guero Schmitt MD, John Primary Care Provider [phone] Encounter Details Date Type Department Care Team (Late st Contact Info) Description 03/13/2019 Transcribed Document [facility] [place] [address] [place] [address] ProviderFrida MD [address] [place] [address] Social History Tobacco Use Types Packs/Day Years Used Date Smoking Tobacco: Never Assessed Comments Unknown Sex and Gender Information Value Date Recorded Sex Assigned at Not on file Legal Sex Female 5:43 PM CDT Gender Identity Not on file Sexual Orientation Not on file documented as of this encounter Miscellaneous Notes * Cerner Conversion Note - Frida Morataya MD - 03/13/2019 12:55 PM CDT PAT Adult Entered On: 03/13/2019 13:00 EDT Performed On: 03/13/2019 12:55 EDT by Aliya Powers, RN Vital Measurements Temperature Source : Temporal artery scanning Temperature Mode : Fahrenheit Temperature, Fahrenheit : 97 Deg F Clinical Temperature, C : 36.1 Deg C Pulse Method : Non-Invasive BP Device Pulse Source : Brachial, Left Peripheral Pulse Rate : 71 bpm Pulse Rhythm : Regular Respiratory Rate : 16 Breaths/Min Blood Pressure Location : Arm, right upper Blood Pressure Source : Non-Invasive BP Device Blood Pressure Position : Sitting Systolic Blood Pressure : 160 mmHg (HI) Diastolic Blood Pressure : 87 mmHg Oxygen Saturation : 97 % Oxygen Therapy Mode : Room air Aliya Powers RN - 03/13/2019 12:55 EDT Height and Weight, Clinical Dosing Height Source : Stated Height Entry Format : Cottonwood Height, Feet : 5 ft(Converted to: 152 cm, 60 Inch) Height, Inches : 5 Inch(Converted to: 0 ft 5 Inch, 12.70 cm) Clinical Height : 165.1 cm Weight Source : Standing scale Weight Entry Format : Cottonwood Clinical Dosing Weight : 74.55 kg Weight, Pounds : 164 lb Body Surface Area (BSA) : 1.82 m2 Body Mass Index : 27.3 kg/m2 (HI) Mars Body Weight : 57 kg Aliya Powers RN - 03/13/2019 12:55 EDT Health Histories Smoking Status : Never (less than 100 in lifetime; none in last 30 days) Smokeless Tobacco Status : Never Aliya Powers RN - 03/13/2019 12:55 EDT Social History (As Of: 03/13/2019 13:00:26 EDT) Tobacco: Never (less than 100 in lifetime) Smoking Status. Never Smokeless Tobacco Status. (Last Updated: 03/13/2019 12:56:46 EDT by Aliya Powers RN) Alcohol: Alcohol Use History Yes. # Drinks/Day: 2. (Last Updated: 03/13/2019 12:56:46 EDT by Aliya Powers RN) Substance Abuse: Drug Use Hx: No. (Last Updated: 03/13/2019 12:56:46 EDT by Aliya Powers RN) Nutrition/Health: Regular (Last Updated: 03/13/2019 12:56:46 EDT by Aliya Powers RN) Infectious Disease History Infectious Disease History : None Isolation Needed : Standard Fever/Chills Last 48 Hours : No Travel To Regions with Travel Advisories : No Travel Outside [place] Within Last 30 Days : No Contact With Traveler to Advisory Region : No Tuberculosis Symptoms : None Aliya Powers RN - 03/13/2019 12:55 EDT Anesthesia/Transfusion History Family History of Anesthesia Reaction : No prior transfusion(s) Transfusion History : Prior anesthesia without reaction Family History of Anesthesia Reaction : None Aliya Powers RN - 03/13/2019 12:55 EDT Functional Assessment Functional ADL Evaluation Index EBN Bathing : Independent (2) Dressing : Independent (2) Toileting : Independent (2) Transferring Bed or Chair : Independent (2) Continence : Independent (2) Feeding : Independent (2) Aliya Powers RN - 03/13/2019 12:55 EDT ADL Index Score : 12 Aliya Powers RN - 03/13/2019 12:55 EDT Advance Directive Patient has Advance Directive *Q : No, patient refuses Advance Directive information Aliya Powers RN - 03/13/2019 12:55 EDT Psychosocial History Do You Have a History of the Following? : Anxiety, Other: claustrophobia Currently in Unsafe Situation : No Tried to Harm Yourself in the Past? : No Thoughts of Harming/Killing Yourself : No Aliya Powers RN - 03/13/2019 12:55 EDT Teaching/Learning Assessment Barriers To Learning : None evident Individuals Taught : Patient Readiness to Learn : Cooperative Aliya Powers RN - 03/13/2019 12:55 EDT Education Topics, Periop Preadmission Perioperative Education Grid Arrival Time/Place : Verbalizes understanding Infection Control : Verbalizes understanding NPO Status/Directions : Verbalizes understanding Preprocedure Preparations : Verbalizes understanding Preprocedure Tests/Labs : Verbalizes understanding Responsible Adult : Verbalizes understanding Take/Hold Medications Pre-Procedure : Verbalizes understanding Aliya Powers RN - 03/13/2019 12:55 EDT General Info Want Family/Rep/Phys Notified of Admit : No Emergency Contact #1 : Santiago Emergency Contact #1 Emergency Contact #1 Relationship : spouse Emergency Contact #2 : . Emergency Contact #2 Phone Number : . Emergency Contact #2 Relationship : . Information Obtained From : Patient Primary Language : Danish Preferred Communication Mode : Verbal Communication Barrier : None Aliya Powers RN - 03/13/2019 12:55 EDT Ramses Scale Ramses Sensory Perception : No impairment Ramses Moisture : Occasionally moist Ramses Activity : Walks occasionally Ramses Mobility : Slightly limited Ramses Nutrition : Adequate Ramses Friction and Shear : No apparent problem Ramses Score : 19 Aliya Powers RN - 03/13/2019 12:55 EDT Sleep Apnea Risk Assmt Hx of [...] Sleep Apnea Risk Level Score : 4 Aliya Powers RN - 03/13/2019 12:55 EDT documented in this encounter Plan of Treatment Upcoming Encounters Date Type Department Care Team (Late st Contact Info) Description 01/07/2025 1:45 PM EDT Office Visit [facility] [address] [place] [address] Tenzin Lozoya APRN [address] [place] [address] 04/01/2025 2:00 PM EDT Appointment [facility] [address] [facility] [address] [place] [address] documented as of this encounter Visit Diagnoses Not on filedocumented in this encounter Care Teams Customer Servicer Relationship Specialty Start Date End Date Js Jack MD [address] [facility] [address] [place] [address] PCP - General General Internal Medicine 02/28/23 documented as of this encounter
--- OUTSIDE RECORDS SUMMARY | 2024-12-07 14:48 | XMS_ITS | Encounter Summary ---
Author Organization [employer] Address [address] [place] [address] Care Team Providers Care Post Form Remover Name Role Phone Guero Schmitt MD, John Primary Care Provider [phone] Encounter Details Date Type Department Care Team (Late st Contact Info) Description 03/19/2019 Transcribed Document [facility] [place] [facility] [place] [address] ProviderFrida MD [address] [place] [id number] Social History Tobacco Use Types Packs/Day Years Used Date Smoking Tobacco: Never Assessed Comments Unknown Sex and Gender Information Value Date Recorded Sex Assigned at Not on file Legal Sex Female 5:43 PM CDT Gender Identity Not on file Sexual Orientation Not on file documented as of this encounter Miscellaneous Notes * Cerner Conversion Note - Frida Morataya MD - 03/19/2019 2:03 PM CDT Patient: BIANCA ZAZUETA Age: 63 years Sex: Female : 1955 Associated Diagnoses: None Author: ALIDA FUENTES PA Subjective She clarifies her chest pressure is in epigastric area and has been occuring off/on for years - worse when sitting in a partially reclined position but not affected by activity like walking up stairs or carrying groceries. Troponins checked again this morning and were 0.7 last night and 0.9 this am. EKG unchanged. No CP this am. Health Status Allergies: Allergic Reactions (Selected) Severity [...] mcg, Oral, Daily Lovenox: 40 mg, SubCutaneous, [id number] Mylanta: 15 mL, Oral, Q4H, PRN: Abdominal Pain Protonix: 40 mg, IV Push, BID Sodium Chloride 0.9% intravenous solution 1,000 mL: 60 mL/Hr, IntraVENous Toprol-XL: 50 mg, Oral, At Bedtime Zofran: 4 mg, IV Push, Q4H, PRN: Nausea Zosyn + Sodium Chloride 0.9% intravenous solution 100 mL: 3.375 Gram, 33.33 mL/Hr, IV Piggyback, Q6HInt acetaminophen-HYDROcodone 325 mg-5 mg oral tablet: 1 Tab, Oral, Q4H, PRN: Pain (Severe 7-10) amLODIPine: 5 mg, Oral, Daily aspirin: 81 mg, Oral, Daily atorvastatin: 40 [...] release: 1 Cap, Oral, QPM, 0 Refill(s) Objective VS/Measurements Vitals Signs (last 24 hrs) Last Charted Minimum Maximum Temp 98.5 (MAR 19 06:00) 97.4 (MAR 18 21:10) 99.2 (MAR 18 15:21) Apical HR H 111 (MAR 18 23:37) H 111 (MAR 18 23:34) H 111 (MAR 18 23:34) Mon HR 96 (MAR 19 06:00) 71 (MAR 18 20:45) 115 (MAR 19 00:30) Resp Rate 16 (MAR 19 06:00) 16 (MAR 18 20:03) H 37 (MAR 18 21:10) SBP 135 (MAR 19 06:00) L 71 (MAR 18 20:10) H 172 (MAR 18 22:00) DBP H 91 (MAR 19 06:00) L 46 (MAR 18 20:15) H 116 (MAR 18 22:00) MAP 101 (MAR 19 06:00) 55 (MAR 18 20:15) 129 (MAR 18 22:00) SpO2 94 (MAR 19 06:00) L 89 (MAR 18 20:35) 100 (MAR 19 04:00) General: Alert and oriented, No acute distress. Neck: No carotid bruit, No jugular venous distention. Respiratory: Lungs are clear to auscultation, Respirations are non-labored. Cardiovascular: Normal rate, Regular rhythm, No murmur, No edema. Gastrointestinal: Non-distended, reproducible epigastric pressure. Musculoskeletal: Normal ROM in bed. Integumentary: Warm, Dry, No rash. Neurologic: No deficits appreciated. Psychiatric: Cooperative, Appropriate mood & affect. Impression and Plan Myocardial Injury - rising Troponin secondary to 2 surgeries, high BP - no ACS description and normal EKG - CO ruled out but cannot excluded underlying CAD with her risk factors (age, Htn, Chol, Fam Hx)- needs OP GXT-SPECT - ECHO here is pending - Cont ASA, Lovenox, BB, Statin s/p vaginal prlopase surgery - per admitting service will update chart with ECHO this afternoon but there is no evidence of ACS/CO Addendum: ECHO shows nml LV function and no wall motion abnormality. Continue current therapy and f/u in our office for stress test as specified above. Please advise if further concerns this admission otherwise we will sign off. Thank you. documented in this encounter Plan of Treatment Upcoming Encounters Date Type Department Care Team (Late st Contact Info) Description 01/07/2025 1:45 PM EDT Office Visit [facility] [address] [place] [address] Tenzin Lozoya APRN [address] [place] [address] 04/01/2025 2:00 PM EDT Appointment [facility] [address] [facility] [address] [place] [address] documented as of this encounter Visit Diagnoses Not on filedocumented in this encounter Care Teams Post Form Remover Relationship Specialty Start Date End Date Js aJck MD [address] [place] [address] [place], [place] [id number] PCP - General General Internal Medicine 02/28/23 documented as of this encounter
--- OUTSIDE RECORDS SUMMARY | 2024-12-07 14:48 | XMS_ITS | Continuity of Care Document ---
Author Organization AR Mora / Kermit [facility] Address [address] [facility] [address] [place] [address] Care Team Providers Care Mdm Sr Name Role Phone ANGEL LUIS MORA Primary Care Provider LIZZIE Beth Armature Winder Repair Helper [phone] JOHN SIMMONS Manager Pe Key HORNE Driver'S License Examiner SOFIA HITCHCOCK Sleep Medicine HARDEEP HENRIQUEZ Neurosurgeon SANYA PRIETO Strand Forming Machine Operator ENEDINA HOOVER Client Development Manager ZIGGY SALAZAR Pain Management Assessment No assessment recorded. Plan of Treatment Reminders Order Date Submit Date Provider Last Modified By Organization Details Last Modified Time Details Appointments ZHEN- JESSICA V ([facility]) 60M 2024 10:30A M [facility] Not available Not available Not available [facility]- 60M MD SALAZAR 2024 11:00A M Angel Luis Mora MD, FACP Not available Not available Not available Lab None record ed. Referral None record ed. Procedures None record ed. Surgeries None record ed. Imaging None record ed. Medication Orders hydroc hlorot hiazid e 25 mg tablet 2024 025 [facility], [address] [facility] [address], [place], [place], [id number], 10/17/2024 14:24:26 Patient TargetsNo targets recorded. Patient Instructions Encounter Date Encounter Id Patient Instructions Last Modified By Organization Details Last Modified Time 10/15/2024 [id number] Instead of Kerline, you might try Zyrtec or Xyzal. I do recommend large-volume saline irrigations (nasal) [id number] Not available 10/15/2024 16:50:11 [id number] . Give lorazepam 0.5 mg #30 for occasional prn use [id number] Not available 10/15/2024 16:52:01 Reason for Referral None Reported. Problems Name Problem SNOMED Code Status Onset Date Resolution Date Notes Provider Name and Address Organization Details Recorded Time Cough 36330374 Active 2015 Cough;Pro blem Note: usual broad different ial. Elements of rhinitis suspect. Chest CT August 2012-see record. 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 Not Available [facility] 9 22:03:19 Benign essentia l hyperten matthew 8075023 Active 2013 Hypertens ion, Benign Essential ; Not Available [facility] 9 22:03:19 Arthropa thy 755071016 Active 2016 Osteoarth ritis; Not Available [facility] 9 22:03:19 Lipoprot ein above referenc e range 233173024 Active 2018 L0 (a) elevation Angel Luis Mora MD [address] [facility] [address], [place], [address], [place] / [facility] 9 12:29:17 Cystocel e and rectocel e co-occur rent with incomple te uterovag inal prolapse 332634047 Active 2018 Angel Luis Mora MD [address], [place], [address], [place] [facility] [place] 9 13:08:59 Coronary atherosc lerosis 906338348 Active 2018 2-40%-act renea plaque and inflammat ion on CIMT 03/01 Angel Luis Mora MD [address], [place], [address], [place] 9 12:23:00 Body mass index 25-29 - overweig ht 247580497 Active 2018 Stacey Kelly minerva, [place] / [place] 9 12:20:39 Finding of body mass index 354645092 Active 2018 Glenny gaspar null, [place] 9 11:27:51 Gastroes ophageal reflux disease 402898951 Active 2018 EGD 08/29-file d Vidhya, probably Barretts Angel Luis Mora MD [address], [place], [address], [place] 9 16:50:02 Dean' s esophagu s 779948321 Active 2018 Angel Luis Mora MD [address], [place], [address], [place] 9 12:07:43 Environm ental allergy 425708248 Active 2020 Angel Luis Mora MD [address], [place], [address], [place] 1 15:01:32 Hypersom belinda 03503611 Active 2020 nAgel Luis Mora MD [address], [place], [address], [place] 1 15:02:43 Diarrhea 38693064 Active 2020 Angel Luis Mora MD [address], [place], [address], [place] [facility] [place] 1 11:42:25 Easy bruising 623346281 Active 2020 Angel Luis Mora MD [address], [place], [address], [place] [facility] [place] 1 11:43:30 Sleep apnea 99844243 Active 2020 Angel Luis Mora MD [address], [place], [address], [place] [facility] [place] 1 15:45:46 Iron deficien cy 66184395 Active 2021 ferritin 11 as of 08/24/21 Angel Luis Mora MD [address], [place], [address], [place] [facility] [place] 2 09:03:15 Osteoart hritis 428453375 Active 2022 Angel Luis Mora MD [address], [place], [address], [place] [facility] [place] 3 14:19:41 Hyponatr emia 33668158 Active 2022 Angel Luis Mora MD [address], [place], [address], [place] 3 14:19:42 Depressi ve disorder 98208857 Active 2022 Angel Luis Mora MD [address], [place], [address], [place] 3 13:55:50 Chapped skin 632984018 Active 2023 Angel Luis Mora MD [address], [place], [address], [place] 4 10:10:15 Chronic cough 90837746 Active 2024 Angel Luis Mora MD [address], [place], [address], [place] / [place] 5 12:08:08 Seasonal affectiv e disorder 032431138 Active 2024 Angel Luis Mora MD [address], [place], [address], [place] [facility] [place] 5 16:41:56 Essentia l hyperten matthew 19009316 Active 2024 Angel Luis Mora MD [address], [place], [address], [place] 5 [...] discectomy completed Angel Luis Mora MD [address] [facility] [address], [place], [address], [place] 0 13:10:28 11/13 Pain Assessment completed Kaitlin Leonila [place] / [place] 0 11:11:12 06/03 /2020 Home Safety Screen completed Kaitlin Leonila [place] / [place] 0 11:09:31 03/16 total excision of bilateral fallopian tubes completed Angel Luis Mora MD [address] [facility] [address], [place], [address], [place] 9 14:00:41 02/27 Dxa bone density yessy vrt fx completed Kaitlin Leonila [place] 0 15:44:00 10/18 [facility] AWE completed Angel Luis Mora MD [address] [facility] [address], [place], [address], [place] [facility] [place] 9 13:53:04 [...] Name and Address Organization Details Recorded Time [facility] Not available Not available Not available 09/11/2018 09933 4 RxNorm React ion: face/ neck swell ing; Not Available [facility] 9 05:48:00 Medications Name Sig Start [...] MOUTH THREE TIMES DAILY NEEDED FOR PAIN 03/05 /2024 completed Not Available Not Available Not Available [...] route. 09/16 completed Claribel Kurtzub - sleep POWER SHOVEL ENGINEER Not Available Not Available Not Available [employer]pi[employer]eram [...] Updated DateTime 5 162.56 cm 26.5 kg/m2 70879.3 g 59 /min 97 % 97 % 127 mm[Hg] 86 mm[Hg] Kala Mora / Kermit 5 16:13:52 Social History Question Answer Notes LastModified by [employer] Details LastModified Time Tobacco Smoking Status Never Smoker Not Available [facility] 04/15/2020 03:38:50 What Is Your Level Of Caffeine Consumption? Moderate 1 Mug Coffee/d, 1 Iced Tea/d [id number] Information not available 04/15/2020 Education 2 Year College Information not available 03/31/2021 Marital Status Informatio n not available 03/31/2021 What Was The Date Of Your Most Recent Tobacco Screening? 02/14/2024 Information not available 02/14/2024 Sex: Unknown Functional Status Question Answer Note LastModified by [employer] Details LastModified Time What is your level of alcohol consumption? 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 Information not available 03/31/2021 What is your [...] trivalent, PF 4 completed Sun Mendez null, [facility] 03/02/2024 14:04:12 Tdap 9 completed Not Available [facility] 06/30/2019 02:25:25 zoster, unspecified formulation 3 completed Not Available [facility] 01/19/2023 15:01:25 Influenza, recombinant, quadrivalent, PF 8 completed Not Available [facility] 01/19/2023 15:01:25 Hep A, adult 8 completed Not Available [facility] 01/19/2023 15:01:25 zoster live 9 completed Not Available [facility] 01/19/2023 15:01:25 Influenza, recombinant, quadrivalent, PF 9 completed Not Available [facility] 06/30/2019 02:25:26 COVID-19, mRNA, LNP-S, PF, 30 mcg/0.3 mL dose 1 completed Germania London null, [facility] 10/05/2022 13:14:56 COVID-19, mRNA, LNP-S, PF, 30 mcg/0.3 mL dose 1 completed Germania London null, [facility] [place] 10/05/2022 13:15:12 pneumococcal polysaccharide PPV23 0 completed Guerita Burr null, [facility] [place] 12/05/2019 15:26:41 COVID-19, mRNA, LNP-S, bivalent, PF, 50 mcg/0.5 mL or 25mcg/0.25 mL dose 2 completed Germania London null, [facility] / [place] 10/05/2022 13:16:47 Influenza, recombinant, quadrivalent, PF 0 completed Germnaia London null, [facility] [place] 03/24/2020 14:12:14 Hep A, adult 9 completed Not Available [facility] 06/30/2019 02:25:25 COVID-19, mRNA, LNP-S, PF, 100 mcg/0.5mL dose or 50 mcg/0.25mL dose 1 completed Guerita Burr null, [facility] 03/28/2021 12:02:10 Influenza, recombinant, quadrivalent, PF 1 completed Germania London null, [facility] 05/25/2021 14:49:06 zoster recombinant 1 completed Germania London null, [facility] 05/25/2021 14:49:06 Influenza, high-dose, quadrivalent, PF 2 completed Guerita Burr null, [facility] 04/06/2022 13:44:54 Past Encounters Encounter ID Performer Location Encounter Start Date Encounter Closed Date Diagnosis/Indication Diagnosis SNOMED-CT Code Diagnosis ICD10 Code Diagnosis Note [id number] Angel Luis Mora MD [facility] [address] [place] [address] 10/15/2024 16:04:23 10/16/2024 15:06:46 Seasonal affective disorder 292050188 F33.1 Benign navya plasm of meninges 242055053 D32.9 Iron deficiency 11986129 E61.1 Benign ess ential hypertension 4883025 I10 Addition of diuretic seems prudent Health Concerns Section Related Observation LastModified by Organization Detai ls LastModified Time None Recorded Concern Status LastModified by Organization Details LastModified Time None Recorded Payers Encounter Date Sequence Insurance Name Policy Number Policy Wells Covered Member ID Wells Member ID Guarantor Name 10/15/2024 1 [place] Bianca Ferrari Breeding [id number] Bianca Ferrari Breeding 10/15/2024 2 AARP (MEDICARE SUPPLEMENT) Bianca Ferrari Breeding [id number] Bianca Ferrari Breeding Notes Date Note Type [...] her ferritin up over 100 Paulino Kyle null, [place] [facility] [place] 10/15/2024 16:55:44 OBGyn Episode No OBEpisode recorded.
--- OUTSIDE RECORDS SUMMARY | 2024-12-07 14:48 | XMS_ITS | Encounter Summary ---
Author Organization [employer] Address [address] [place] [address] Care Team Providers Care Deep Submergence Vehicle Crewmember Name Role Phone Guero Schmitt MD, John Primary Care Provider [phone] Encounter Details Date Type Department Care Team (Late st Contact Info) Description 03/19/2019 Transcribed Document [facility] [place] [facility] [place] [address] ProviderFrida MD [address] [place] [address] Social History Tobacco Use Types Packs/Day Years Used Date Smoking Tobacco: Never Assessed Comments Unknown Sex and Gender Information Value Date Recorded Sex Assigned at Not on file Legal Sex Female 5:43 PM CDT Gender Identity Not on file Sexual Orientation Not on file documented as of this encounter Miscellaneous Notes * Cerner Conversion Note - Frida ProviderMD - 03/19/2019 2:00 AM CDT Preformer Impregnated Fabrics Details Entered On: 03/19/2019 1:24 EDT Performed On: 03/19/2019 2:00 EDT by Yari Olson, RN Order Details Transport Mode Order Detail : Wheelchair Isolation Precautions Order Detail : Standard Precautions Order Detail : 0 IV Order Detail : 1 Oxygen Order Detail : 0 Nurse Collect Order Detail : 0 Lift/Transfer : Minimal Central Line Order Detail : No Room Service : Appropriate Arterial Line : No Yari Olson, ZOHREH - 03/19/2019 1:24 EDT Electronically signed by Darryl Albert Conversion Assistant Professor Of [employer] at 10/01/2022 5:14 PM CDT documented in this encounter Plan of Treatment Upcoming Encounters Date Type Department Care Team (Late st Contact Info) Description 01/07/2025 1:45 PM EDT Office Visit [facility] [address] [place] [address] Tenzin Lozoya APRN [address] [place] [address] 04/01/2025 2:00 PM EDT Appointment [facility] Breast [facility] [address] [place] [address] documented as of this encounter Visit Diagnoses Not on filedocumented in this encounter Care Teams Deep Submergence Vehicle Crewmember Relationship Specialty Start Date End Date Guero, Js Schmitt MD [address] [place], [place] [address] PCP - General General Internal Medicine 02/28/23 documented as of this encounter
--- OUTSIDE RECORDS SUMMARY | 2024-12-07 14:48 | XMS_ITS | Encounter Summary ---
Author Organization [employer] Address [address] [place] [address] Care Team Providers Care Panelboard Tank Pumper Name Role Phone Guero Schmitt MD, John Primary Care Provider [phone] Encounter Details Date Type Department Care Team (Late st Contact Info) Description 03/20/2019 Transcribed Document [facility] [place] [address] ProviderFrida MD [address] [place] [address] Social History Tobacco Use Types Packs/Day Years Used Date Smoking Tobacco: Never Assessed Comments Unknown Sex and Gender Information Value Date Recorded Sex Assigned at Not on file Legal Sex Female 5:43 PM CDT Gender Identity Not on file Sexual Orientation Not on file documented as of this encounter Miscellaneous Notes * Cerner Conversion Note - Frida ProviderMD - 03/20/2019 2:00 AM CDT Home Care Liaison Details Entered On: 03/20/2019 5:05 EDT Performed On: 03/20/2019 2:00 EDT by Glenny Garcia, Rn Order Details Transport Mode Order Detail : Wheelchair Isolation Precautions Order Detail : Standard Precautions Order Detail : 0 IV Order Detail : 1 Oxygen Order Detail : 0 Nurse Collect Order Detail : 0 Lift/Transfer : Minimal Central Line Order Detail : No Room Service : Appropriate Arterial Line : No Glenny Garcia, Rn - 03/20/2019 5:05 EDT Electronically signed by Darryl Albert Conversion Financial Retirement Plan Specialist Cerner at 10/01/2022 5:05 PM CDT documented in this encounter Plan of Treatment Upcoming Encounters Date Type Department Care Team (Late st Contact Info) Description 01/07/2025 1:45 PM EDT Office Visit [facility] [address] [place] [address] Tenzin Lozoya APRN [address] [place] [address] 04/01/2025 2:00 PM EDT Appointment [facility] Breast [facility] [address] [facility] [address] [place] [address] documented as of this encounter Visit Diagnoses Not on filedocumented in this encounter Care Teams Panelboard Tank Pumper Relationship Specialty Start Date End Date Js Jack MD [address] [facility] [address] [place], [place] [address] PCP - General General Internal Medicine 02/28/23 documented as of this encounter
--- OUTSIDE RECORDS SUMMARY | 2024-12-07 14:48 | XMS_ITS | Encounter Summary ---
Author Organization [employer] Address [address] [place] [address] Care Team Providers Care Bulb Brander Name Role Phone Guero Schmitt MD, John Primary Care Provider [phone] Encounter Details Date Type Department Care Team (Late st Contact Info) Description 03/19/2019 Transcribed Document [facility] [place] [address] [place] [address] ProviderFrida MD [address] [place] [address] Social History Tobacco Use Types Packs/Day Years Used Date Smoking Tobacco: Never Assessed Comments Unknown Sex and Gender Information Value Date Recorded Sex Assigned at Not on file Legal Sex Female 5:43 PM CDT Gender Identity Not on file Sexual Orientation Not on file documented as of this encounter Miscellaneous Notes * Cerner Conversion Note - Frida ProviderMD - 03/19/2019 5:00 AM CDT Chart Check - Review Order Profile Entered On: 03/19/2019 9:26 EDT Performed On: 03/19/2019 5:00 EDT by Yari Olson RN Chart Check Powerplans Initiated/Discontinued as Appropriate : Yes All Active Orders Reviewed : Yes Yari Olson RN - 03/19/2019 9:26 EDT documented in this encounter Plan of Treatment Upcoming Encounters Date Type Department Care Team (Late st Contact Info) Description 01/07/2025 1:45 PM EDT Office Visit [address] [place] [address] Tenzin Lozoya APRN [address] [place] [address] 04/01/2025 2:00 PM EDT Appointment [facility] [address] [place] [address] documented as of this encounter Visit Diagnoses Not on filedocumented in this encounter Care Teams Bulb Brander Relationship Specialty Start Date End Date Guero, Js Schmitt MD [address] [facility] [address] [place], [place] [id number] PCP - General General Internal Medicine 02/28/23 documented as of this encounter
--- OUTSIDE RECORDS SUMMARY | 2024-12-07 14:48 | XMS_ITS | Encounter Summary ---
Author Organization [employer] Address [address] [place] [address] Care Team Providers Care Metabolic Specialist Name Role Phone Guero Schmitt MD, John Primary Care Provider [phone] Encounter Details Date Type Department Care Team (Late st Contact Info) Description 03/20/2019 Transcribed Document [facility] [address] ProviderFrida MD [address] [place] [address] [id number] Social History Tobacco Use Types Packs/Day Years Used Date Smoking Tobacco: Never Assessed Comments Unknown Sex and Gender Information Value Date Recorded Sex Assigned at Not on file Legal Sex Female 5:43 PM CDT Gender Identity Not on file Sexual Orientation Not on file documented as of this encounter Miscellaneous Notes * Cerner Conversion Note - Frida Morataya MD - 03/20/2019 2:00 PM CDT Patient: BRIGIDO ZAZUETA Age: 63 years Sex: Female : 1955 Associated Diagnoses: None Author: TAYLOR CARMONA MD-GAE Basic Information Referral source: LOLA RAMACHANDRAN DO. Chief Complaint Dysphagia, Epigastric pain, GERD History of Present Illness Dr Ramachandran has asked us to see this patient for further evaluation of possible esophageal stricture. Patient is a 63 female with known history of HTN and anxiety who was admitted on 03/16 s/p robotic laparoscopy with DAYAN and bilateral oophorectomy. She developed CP on 03/18 with elevated troponin that was thought to be secondary to demand ischemia as she had no EKG changes. CTA on 03/18 revealed findings suggestive of fluid overload/edema vs. pneumonia, gas in the upper abdominal wall as well as free air in the upper abdomen thought to be secondary to recent surgery or perforation, and bilateral pleural effusions. Patient then underwent an exploratory laparoscopy which was negative for perforation. She has a known history of GERD and is s/p failed Michael fundoplication over 10 years ago. Patient was last seen by Dr. Amaya in October of this year at which time her symptoms were reportedly somewhat improved on BID PPI therapy. Last EGD in August of [address] Amaya showed probable short segment of Dean's esophagus, reflux esophagitis and evidence of failed Michael fundoplication. 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 Patient complains of heartburn and reflux symptoms that have been present for years, but have worsened post-operatively. She feels as though she is having an esophageal spasm with associated pain in the epigastric area and across the upper abdomen. Associated symptoms include a frequent gagging sensation with PO intake and pills. She often experiences early satiety and attempts to eat frequent small meals daily. She denies nausea, but complains of frequent regurgitation that is specifically worse when lying down. During this admission she has experienced increased esophageal burning and worsening of her chronic cough that has been present for 15 years. Per her report she recently coughed up blood. Also with worsening abdominal distention and pressure following surgery. She has had multiple endoscopies and an extensive GI workup over the last 10 to 15 years, both prior to and following her Michael fundoplication. She is currently taking 40 mg esomeprazole in the morning and 20 mg esomeprazole prior to evening. Denies melena, hematemesis, BRBPR, or weight loss. Histories Past Medical History: Anxiety At risk for sleep apnea Hypertension Meningioma Procedure history: hysterectomy. lap michael. bilateral breast reduction/lift. cysto. lysis or lesions. BNO. Social History Social & Psychosocial Habits Alcohol 03/13/2019 Alcohol Use History, Social Habits Yes Number of Drinks per Day 2 Nutrition/Health 03/13/2019 Type of diet: Regular Substance Abuse 03/13/2019 Recreational Drug Use History No Tobacco 03/13/2019 Smoking Status Never (less than 100 in l Smokeless Tobacco Status Never . Family History: Noncontributory Health Status Allergies: Allergic Reactions (All) Severity Not Documented Lunesta- Swelling. Nickel- Rash., [...] Nausea/Vomiting Klor-Con 10: 30 mEq, Oral, BID Linzess: 145 mcg, Oral, Daily Lovenox: 40 mg, SubCutaneous, [id number] Mylanta: 15 mL, Oral, Q4H, PRN: Abdominal [...] 1 Cap, Oral, QPM, 0 Refill(s), Medications (24) Active Scheduled: (17) amLODIPine 5 mg tab 5 mg 1 Tab, Oral, BID aspirin EC 81 mg tab 81 mg 1 Tab, Oral, Daily atorvastatin 20 mg tab 40 mg 2 Tab, Oral, At Bedtime aztreonam + NaCl 0.9% 100 mL 2 Gram, IV Piggyback, Pre Procedure clindamycin/D5w 900 mg 50 mL, IV Piggyback, Pre Procedure docusate sodium 100 mg cap 100 mg 1 Cap, Oral, BID enoxaparin 40 mg/0.4 mL inj 40 mg 0.4 mL, SubCutaneous, [id number] estradiol 0.05 mg/day 7 day patch 1 [...] 100 mL 3.375 Gram, IV Piggyback, Q6HInt potassium chloride CR 10 mEq tab 30 mEq 3 Tab, Oral, BID simethicone 80 mg chew tab 80 mg 1 Tab, Oral, TID sucralfate 1 g tab 1 Gram 1 Tab, Oral, AC and at Bedtime Continuous: (0) PRN: (7) acetaminophen/HYDROcodone 325/5 mg tab 1 Tab, Oral, Q4H al hydrox/mag hydrox/simeth 30 mL liq 15 mL, Oral, Q4H hydrALAZINE 20 mg/1 mL inj 10 mg 0.5 mL, IV Push, Q6H labetalol 100 mg/20 mL inj 20 mg 4 mL, IV Push, Q4H ondansetron 4 mg/2 mL inj 4 mg 2 mL, IV Push, Q4H prochlorperazine 10 mg/2 mL inj 5 mg 1 mL, IV Push, Q6H promethazine 25 mg/1 mL inj 6.25 mg 0.25 mL, IV Push, Q6H Problem list: All Problems Anxiety / SNOMED CT 21713846 / Confirmed At risk for sleep apnea / IMO 12064466 / Confirmed Meningioma / SNOMED CT 3992897256 / Confirmed Hypertension / SNOMED CT 6359447821 / Confirmed, Active Problems (4) Anxiety At risk for sleep apnea Hypertension Meningioma Review of Systems Constitutional: No fever, No chills, No weight gain, No weight loss. Eye: No recent visual problem, No blurring. Ear/Nose/Mouth/Throat: Dysphagia, No epistaxis, No hoarse voice, No sore throat. Respiratory: No shortness of breath, No cough, No hemoptysis. Cardiovascular: No chest pain, No palpitations, No claudication. Gastrointestinal: Vomiting, Heartburn, Bloating, No nausea, No diarrhea, No constipation, No belching, No hematemesis, No change in bowel habits, No melena, No rectal bleeding. Abdominal pain: Bilateral, Upper quadrant, Epigastric area, The severity is moderate, Characterized as ( Intermittent, pressure ). Genitourinary: No dysuria, No hematuria. Hematology/Lymphatics: No bruising tendency, No bleeding tendency. Endocrine: No excessive thirst, No cold intolerance, No heat intolerance. Musculoskeletal: No joint pain, No muscle pain, No gait disturbance, No joint redness. Integumentary: No rash, No pruritus. Neurologic: No confusion, No dizziness, No headache, No seizure. Psychiatric: No anxiety, No depression. the rest of the 10 system review is negative Physical Examination VS/Measurements Vitals Signs (last 24 hrs) Last Charted Minimum Maximum Temp 99.2 (MAR 20 10:00) 98.9 (MAR 20 06:29) 99.2 (MAR 20 10:00) Apical HR H 115 (MAR 20 11:18) 97 (MAR 19 22:41) H 115 (MAR 20 11:18) Mon HR 115 (MAR 20 11:18) 87 (MAR 19 17:06) 115 (MAR 20 11:18) Resp Rate 16 (MAR 20 10:00) 16 (MAR 19 15:16) 16 (MAR 19 15:16) SBP H 157 (MAR 20 11:18) 134 (MAR 19 22:41) H 157 (MAR 20 11:18) DBP H 102 (MAR 20 11:18) 71 (MAR 20 02:54) H 106 (MAR 19 17:06) MAP 115 (MAR 20 10:00) 89 (MAR 20 02:54) 117 (MAR 19 17:06) SpO2 L 92 (MAR 20 10:00) L 92 (MAR 20 10:00) 95 (MAR 20 06:29) General: No acute distress. Appearance: Well nourished. Eye: Pupils are equal, round and reactive to light, Extraocular movements are intact, Normal conjunctiva. Sclera: Both eyes, Within normal limits. HENT: Normocephalic, Normal hearing, Oral mucosa is moist. Nose: Both nostrils, Within normal limits, Patent. Mouth: pink. Neck: Supple, Non-tender, No carotid bruit, No jugular venous distention. Respiratory: Lungs are clear to auscultation, Respirations are non-labored, Breath sounds are equal. Pattern: Regular. Cardiovascular: Normal rate, Regular rhythm, No murmur, No gallop, No edema. Arterial pulses: Bilateral, Dorsalis pedis, Within normal limits. Gastrointestinal: Soft, Normal bowel sounds, No organomegaly, Mildly TTP generalized abdomen , Mildly distended . Abdomen: Liver ( Within normal limits ). Musculoskeletal: Normal range of motion, No tenderness, No deformity, Normal gait, Generalized weakness . Integumentary: Warm, Dry, [place], No rash. Integumentary exam: Face, Chest, Arm, Abdomen, Leg. Neurologic: Alert, Oriented, No focal deficits. Orientation: To person, To place, To time. Psychiatric: Cooperative, Appropriate mood & affect, Normal judgment. Review / Management Results review: Labs (Last four charted values) WBC H 15.3 (MAR 20) H 18.5 (MAR 19) H 18.8 (OCT 06) H 17.5 (OCT 05) HB L 10.9 (MAR 08) 12.2 (OCT 07) 12.0 (OCT 06) 11.2 (OCT 05) HCT L 32.6 (MAR 08) 36.1 (OCT 07) 36.0 (OCT 06) 34.8 (OCT 05) Plt 318 (OCT 08) H 374 (OCT 07) 335 (MAR 06) 272 (OCT 05) Na L 126 (MAR 08) L 125 (MAR 08) L 125 (MAR 07) L 125 (MAR 07) K L 3.1 (MAR 08) L 3.4 (OCT 07) 3.8 (OCT 06) 4.2 (OCT 05) Cl L 88 (MAR 08) L 89 (MAR 07) L 87 (MAR 06) L 89 (MAR 05) CO2 30 (MAR 08) 28 (MAR 07) 27 (MAR 06) 27 (MAR 05) BUN 13 (MAR 08) 10 (MAR 07) 10 (MAR 06) 13 (MAR 05) Cr 0.62 (MAR 08) 0.74 (MAR 19) 0.60 (MAR 06) 0.65 (MAR 05) Glu R 101 (MAR 08) H 141 (MAR 07) H 131 (MAR 06) H 133 (MAR 05) Ca 8.5 (MAR 08) 8.5 (MAR 07) 8.9 (MAR 06) 8.5 (MAR 05) Lactic 2.0 (MAR 07) C 3.2 (OCT 06) C 2.3 (OCT 06) C 2.5 (MAR 05) AST 33 (MAR 19) 26 (MAR 06) 19 (MAR 17) 19 (MAR 13) ALT 28 (MAR 19) 21 (MAR 18) 20 (OCT 05) 19 (OCT ) ALK P 63 (MAR 19) 53 (MAR 06) 51 (OCT 05) 55 (OCT ) T Bili 0.7 (MAR 07) 0.4 (MAR 06) 0.5 (MAR 05) 0.3 (MAR 13) PTN 6.8 (MAR 19) 6.5 (OCT 06) 6.7 (OCT 05) 7.1 (OCT ) ALB 3.4 (MAR 07) L 3.3 (OCT 06) 3.5 (OCT 05) 3.8 (OCT 01) Lipase 97 (MAR 06) 90 (OCT 05) Troponin C 0.923 (OCT 07) C 0.721 (MAR 18) <0.015 (MAR 17) <0.015 (MAR 17) . Impression and Plan Abdominal pain, Dysphagia, GERD with history of failed Michael fundoplication - Last EGD with Dr. Amaya in October of this year showed Dean's esophagus without dysplasia. Symptoms have worsened post-operatively. Will proceed with EGD in the morning for further evaluation. Risks of the procedure to include that of bleeding and perforation have been discussed with the patient who verbalizes understanding and agrees to continue. Further recommendations will be based on procedure findings. ILisa NP, have scribed this note for Dr Taylor [facility] I Mi Carmona M.D. have personally interviewed the patient, reviewed the chart, performed the physical exam, and formulated the treatment plan. The patient complains of abdominal pain and dysphagia. She has had a longstanding h/o GERD and is followed by Dr. Bobby Amaya. She states her GERD symptoms have worsened since her surgery. She feels the CO2 used for the laproscopic surgery is pressing on her upper abdomen and causing regurgitation. Of note, her BNP is 13,000 and she does have LE edema. Her sodium is low at 126. I would like to proceed with an EGD but will wait until her sodium improves. Continue PPI. documented in this encounter Plan of Treatment Upcoming Encounters Date Type Department Care Team (Late st Contact Info) Description 01/07/2025 1:45 PM EDT Office Visit [facility] [address] [place] [address] Tenzin Lozoya APRN [address] [place] [address] 04/01/2025 2:00 PM EDT Appointment [facility] [address] [employer] [facility] [address] [place] [address] documented as of this encounter Visit Diagnoses Not on filedocumented in this encounter Care Teams Metabolic Specialist Relationship Specialty Start Date End Date Js Jack MD [address] [facility] [address] [place] [address] PCP - General General Internal Medicine 02/28/23 documented as of this encounter
--- OUTSIDE RECORDS SUMMARY | 2024-12-07 14:48 | XMS_ITS | Encounter Summary ---
Author Organization [employer] Address [address] [place] [address] Care Team Providers Care Machine Pie Maker Name Role Phone Guero Schmitt MD, John Primary Care Provider [phone] Encounter Details Date Type Department Care Team (Late st Contact Info) Description 03/19/2019 Transcribed Document [facility] [place] [address] [place] [address] ProviderFrida MD [address] [place] [address] [id number] Social History Tobacco Use Types Packs/Day Years Used Date Smoking Tobacco: Never Assessed Comments Unknown Sex and Gender Information Value Date Recorded Sex Assigned at Not on file Legal Sex Female 5:43 PM CDT Gender Identity Not on file Sexual Orientation Not on file documented as of this encounter Miscellaneous Notes * Cerner Conversion Note - Frida Morataya MD - 03/19/2019 7:50 PM CDT Rapid Response Team Documentation Entered On: 03/19/2019 23:52 EDT Performed On: 03/19/2019 19:50 EDT by Aliza Dunne RN Rapid Response Event Rapid Response Team Event End Time : 03/19/2019 19:50 EDT Rapid Response Event Intiated By : Hospital Staff Rapid Response Team Initiation Reason : Peripheral IV start Rapid Response Event Location Type : Other: 436 Rapid Response Team Initiation Reason Details : Primary RN unable to obtain IV access Rapid Response Admission Diagnosis : Rectocele Rectocele Rapid Response Medical Background : Anxiety (Medical) At risk for sleep apnea (Medical) Hypertension (Medical) Meningioma (Medical) Rapid Response Allergies : Substance Category Reactions Severity Lunesta Drug Swelling Nickel Drug Rash Rapid Response Recent Vital Signs : 03/19/2019 22:41 Systolic Blood Pressure 134 03/19/2019 22:41 Diastolic Blood Pressure 80 03/19/2019 17:06 Heart Rate Monitored 87 03/19/2019 22:41 Heart Rate, Apical 97 03/19/2019 17:06 Respiratory Rate 16 03/19/2019 17:06 Temperature, Fahrenheit 98.5 03/19/2019 17:06 Oxygen Saturation 93 Rapid Response Recent Lab Results : 03/19/2019 23:10 Sodium Level LOW 125 (136-146) 03/19/2019 03:38 Potassium Level LOW 3.4 (3.5-5.1) 03/19/2019 03:38 Calcium Level 8.5 (8.5-10.1) 03/19/2019 03:38 Chloride Level LOW 89 (102-112) 03/19/2019 03:38 Carbon Dioxide Level 28 (21-32) 03/19/2019 03:38 Blood Urea Nitrogen 10 (7-22) 03/19/2019 03:38 Creatinine Level 0.74 (0.55-1.02) 03/19/2019 03:38 Hgb 12.2 (11.2-15.7) 03/19/2019 03:38 Hct 36.1 (34.1-44.9) 03/19/2019 03:38 RBC 4.34 (3.93-5.22) 03/19/2019 03:38 WBC HI 18.5 (3.9-10.0) 03/19/2019 03:38 Platelet Count HI 374 (163-369) 03/19/2019 03:38 Lactic Acid Level 2.0 (0.4-2.0) 03/19/2019 03:38 Troponin I Ultra CRIT 0.923 (0.015-0.045) 03/18/2019 03:54 CK MB HI 4.20 [...] Mass Index: 27.3 kg/m2 High (03/13/19 12:55:00) Rapid Response Team Recommendation/Response : IV inserted, pt tolerated well, see chart Aliza Dunne, RN - 03/19/2019 23:51 EDT Electronically signed by [facility], [facility] Conversion Engineering Faculty Cerner at 10/01/2022 5:10 PM CDT documented in this encounter Plan of Treatment Upcoming Encounters Date Type Department Care Team (Late st Contact Info) Description 01/07/2025 1:45 PM EDT Office Visit [facility] [address] [place] [address] Tenzin Lozoya APRN [address] [facility] [address] [place] [address] 04/01/2025 2:00 PM EDT Appointment [facility] [address] [facility] [address] [place] [address] documented as of this encounter Visit Diagnoses Not on filedocumented in this encounter Care Teams Machine Pie Maker Relationship Specialty Start Date End Date Js Jack MD [address] [facility] [address] [place] [address] PCP - General General Internal Medicine 02/28/23 documented as of this encounter
--- OUTSIDE RECORDS SUMMARY | 2024-12-07 14:48 | XMS_ITS | Encounter Summary ---
Author Organization [employer] Address [address] [place] [address] Care Team Providers Care Utility Worker [employer] Name Role Phone Guero Schmitt MD, Js Primary Care Provider [phone] Reason for Referral * Mammography (Routine) - Authorized Specialty Diagnoses / Procedures Referred By Contac t Referred To Contact Radiology Diagnoses Visit for screening mammogram Procedures MM digital mammo screen with dana bilateral Js Jack MD [address] [facility] [address] [place] [address] Phone: tel: fax: [facility] [address] [facility] [facility] [address] [address] [place] [address] Phone: tel: fax: Referral ID Status Reason Start Date Expiration Date V isits Requested Visits Authorized [id number] Authorized 04/01/2025 04/01/2026 1 1 Encounter Details Date Type Department Care Team (Late st Contact Info) Description 03/19/2024 Outside Orders [facility] [address] [facility] [address] [place] [address] Js Jack MD [address] [facility] [address] [place] [address] Visit for screening mammogram (Primary Dx) Social History Tobacco Use Types Packs/Day Years Used Date Smoking Tobacco: Never Assessed Interpersonal Safety Answer Date Record ed Family [...] Date Dax rded Speak language other than South African at home Not on file 06/25/2023 Want [...] on file documented as of this encounter Plan of Treatment Upcoming Encounters Date Type Department Care Team (Late st Contact Info) Description 01/07/2025 1:45 PM EDT Office Visit [facility] [address] [place] [address] Tenzin Lozoya APRN [address] [place] [address] 04/01/2025 2:00 PM EDT Appointment [facility] [address] [facility] [address] [place] [address] Scheduled Orders Name Type Priority Associated Diagnoses Orde r Schedule MM digital mammo screen with dana bilateral Imaging Routine Visit for screening mammogram Expected: 04/01/2025, Expires: 04/01/2026 documented as of this encounter Visit Diagnoses Diagnosis Visit for screening mammogram- Primary documented in this encounter Care Teams Utility Worker [employer] Relationship Specialty Start Date End Date Js Jack MD [address] [facility] [address] [place] [address] PCP - General General Internal Medicine 02/28/23 documented as of this encounter
--- OUTSIDE RECORDS SUMMARY | 2024-12-07 14:48 | XMS_ITS | Encounter Summary ---
Author Organization [employer] Address [address] [place] [address] Care Team Providers Care Generation Technologist Name Role Phone Guero Schmitt MD, John Primary Care Provider [phone] Encounter Details Date Type Department Care Team (Late st Contact Info) Description 03/19/2019 Transcribed Document [facility] [place] [address] ProviderFrida MD [address] [place] [id number] Social History Tobacco Use Types Packs/Day Years Used Date Smoking Tobacco: Never Assessed Comments Unknown Sex and Gender Information Value Date Recorded Sex Assigned at Not on file Legal Sex Female 5:43 PM CDT Gender Identity Not on file Sexual Orientation Not on file documented as of this encounter Miscellaneous Notes * Cerner Conversion Note - Frida Morataya MD - 03/19/2019 12:33 PM CDT On Going Discharge Planning Entered On: 03/19/2019 12:34 EDT Performed On: 03/19/2019 12:33 EDT by DENNY HAMMER Maintenance Painter Apprentice-Care Management Care Management Progress Note Discharge Arrangements : Patient Post-Acute Information Patient Name: BIANCA ZAUZETA Gender: Female : [birth year] Age: 63 Years No Post-Acute Placement(s) Listed No Post-Acute Service(s) Listed No [place] Referral(s) Listed Did you Attend Multidisciplinary Rounds? : Yes DENNY HAMMER, Maintenance Painter Apprentice-Care Management - 03/19/2019 12:33 EDT Narrative Progress Note Narrative Progress Note : CM following for d/c needs. Pt. at this time is still con't to have elevated B/P, changing meds, will con't to follow. DENNY HAMMER, Maintenance Painter Apprentice-Care Management - 03/19/2019 12:33 EDT Electronically signed by Bety, [facility] Conversion Grounds Person Cerner at 10/01/2022 5:17 PM CDT documented in this encounter Plan of Treatment Upcoming Encounters Date Type Department Care Team (Late st Contact Info) Description 01/07/2025 1:45 PM EDT Office Visit [facility] [address] [facility] [address] [place] [address] Tenzin Lozoya APRN [address] [employer] [place] [address] 04/01/2025 2:00 PM EDT Appointment [facility] [address] [place] [address] documented as of this encounter Visit Diagnoses Not on filedocumented in this encounter Care Teams Generation Technologist Relationship Specialty Start Date End Date Js Jack MD [address] [facility] [address] [place], [place] [id number] PCP - General General Internal Medicine 02/28/23 documented as of this encounter
--- OUTSIDE RECORDS SUMMARY | 2024-12-07 14:48 | XMS_ITS | Referral Summary ---
Author Organization [employer] [facility] [employer] Address [address] [place] [address] Care Team Providers Care Gas Appliance Installer Name Role Phone Guero Schmitt MD, John Primary Care Provider [phone] Encounters Date Type Department Care Team Description 09/11/2024 Orders Only [facility] [address] [facility] [address] [place] [address] Tenzin Lozoya APRN Hypoferremia (Primary Dx); Restless legs syndrome (RLS) 09/11/2024 1:00 PM EDT Lab Patient Walk-[facility] [address] [place] [address] Tenzin Lozoya APRN Routine general medical examination at a health care facility (Primary Dx) 09/11/2024 Travel 09/11/2024 10:45 AM EDT Office Visit [facility] [address] [facility] [address] [place] [address] Tenzin Lozoya APRN Complex sleep apnea syndrome (Primary Dx); Restless legs syndrome (RLS); Overweight (BMI 25.0-29.9); Iron metabolism disorder from Last 3 Months Allergies Active Allergy Reactions Criticality Noted Date [...] Active meloxicam (MOBIC) 15 MG tablet (Prior Auth#:[id number]) for 90 Active Horizant 600 mg TbER Take 600 mg by mouth daily for 90 days Take at 5pm. Max Daily Amount: 600 mg 90 tablet 1 09/11/2024 Active Social History Tobacco Use Types Packs/Day Years [...] Date Dax rded Speak language other than [place] at home Not on file 06/25/2023 Want [...] Description 01/07/2025 1:45 PM EDT Office Visit [facility] [address] [place] [address] Tenzin Lozoya APRN [address] [place] [address] 04/01/2025 2:00 PM EDT Appointment [facility] [address] [employer] [facility] [address] [place] [address] Procedures Procedure Name Priority Date/Time Associated Diagnosis [...] 10.0 K/ L 09/11/2024 1:01 PM EDT [facility] RBC 4.78 3.93 - 6.08 M/ L 09/11/2024 1:01 PM EDT [facility] Hemoglobin 14.2 11.2 - 15.7 GM/DL 09/11/2024 1:01 PM EDT [facility] Hematocrit 43.9 34.1 - 44.9 % 09/11/2024 1:01 PM EDT [facility] MCV 92 79 - 95 fL 09/11/2024 1:01 PM EDT [facility] MCH 29.7 25.6 - 32.2 pg 09/11/2024 1:01 PM EDT [facility] MCHC 32.3 32.2 - 36.5 GM/DL 09/11/2024 1:01 PM EDT [facility] RDW 13.6 11.6 - 14.4 % 09/11/2024 1:01 PM EDT [facility] Platelets 256 163 - 369 K/CU MM 09/11/2024 1:01 PM EDT [facility] MPV 9.7 9.4 - 12.4 fL 09/11/2024 1:01 PM EDT [facility] nRBC 0(L) 1 - 5 /100 WBC 09/11/2024 1:01 PM EDT [facility] Blood Venipuncture / Unknown 09/11/2024 12:39 PM EDT 09/11/2024 12:39 PM EDT [facility] LAB BLOOD ORDERABLES Final Result Performing Organization Address [facility] Co de Phone Number [facility] [address] [place] [address], [facility] [phone] * Iron and TIBC (09/11/2024 12:38 PM EDT) Iron 72 50.0 - 170.0 ug/dL 09/11/2024 1:21 PM EDT [facility] TIBC 301 250 - 450 ug/dL 09/11/2024 1:21 PM EDT [facility] % Saturation 24 15 - 55 % 09/11/2024 1:21 PM EDT [facility] UIBC 229 09/11/2024 1:21 PM EDT [facility] Blood Venipuncture / Unknown 09/11/2024 12:38 PM EDT 09/11/2024 12:38 PM EDT [facility] LAB BLOOD ORDERABLES Final Result Performing Organization Address [facility]/ZIP Co de Phone Number [facility] [address] [phone] * Ferritin (09/11/2024 12:38 PM EDT) Ferritin 42.00 8.00 - 252.00 ng/mL 09/11/2024 1:21 PM EDT [facility] Blood Venipuncture / Unknown 09/11/2024 12:38 PM EDT 09/11/2024 12:38 PM EDT us Teznin Lozoya [employer] LAB BLOOD ORDERABLES Final Result [facility] [address] [place] [address] [id number] [phone] * MM digital mammo screen with davie [...] the next mammogram. At our facility, a [place] marker is positioned over a visible skin [...] Health Maintenance Insurance MEDICARE [place] [address] [address] SUPP Care Teams Gas Appliance Installer Relationship Specialty Start Date End Date Js Jack MD [address] [facility] [address] [place] [address] PCP - General General Internal Medicine 02/28/23
--- OUTSIDE RECORDS SUMMARY | 2024-12-07 14:48 | XMS_ITS | Encounter Summary ---
Author Organization [employer] [facility] [employer] Address [address] [place] [address] Care Team Providers Care Automotive Service Manager Name Role Phone Guero Schmitt MD, John Primary Care Provider [phone] Encounter Details Date Type Department Care Team (Late st Contact Info) Description 03/19/2019 Transcribed Document [facility] [address] [place] [address] ProviderFrida MD [address] [place] [id number] Social History Tobacco Use Types Packs/Day Years Used Date Smoking Tobacco: Never Assessed Comments Unknown Sex and Gender Information Value Date Recorded Sex Assigned at Not on file Legal Sex Female 5:43 PM CDT Gender Identity Not on file Sexual Orientation Not on file documented as of this encounter Miscellaneous Notes * Cerner Conversion Note - Frida Morataya MD - 03/19/2019 10:46 PM CDT Sepsis Screening Tool Entered On: 03/20/2019 5:05 EDT Performed On: 03/20/2019 0:05 EDT by Glenny Garcia Rn Provider Notification Provider Notified of Concerns/Results : SIRS/Sepsis Alert Provider Notified of : Nurse concerns Provider Response : No new orders Provider Notified Name : REKHA COOK MD Provider Notified Time : 03/20/2019 0:00 EDT Chain of Command Initiated : Yes Rapid Response Team Called : No Results to Provider Comment : will follow up lab cultures per provider Glenny Garcia Rn - 03/20/2019 5:02 EDT Electronically signed by [facility] Conversion Male Infertility Specialist Cerner at 10/01/2022 5:26 PM CDT documented in this encounter Plan of Treatment Upcoming Encounters Date Type Department Care Team (Late st Contact Info) Description 01/07/2025 1:45 PM EDT Office Visit [facility] [address] [facility] [address] [place] [address] Tenzin Lozoya APRN [address] [facility] [address] [place] [address] 04/01/2025 2:00 PM EDT Appointment [facility] [address] [facility] [address] [place] [address] documented as of this encounter Visit Diagnoses Not on filedocumented in this encounter Care Teams Automotive Service Manager Relationship Specialty Start Date End Date Guero, Js Schmitt MD [address] [facility] [address] [place], [place] [id number] PCP - General General Internal Medicine 02/28/23 documented as of this encounter
[2024-12-07 15:20] LABS: Iron 103 ug/dL (37-170)
[2024-12-07 15:31] LABS: Total Iron Binding Capacity 181 ug/dL (265-497)
[2024-12-07 15:57] LABS: Ferritin 657 ng/ml (11.1-264)
== END 2024-12-07 23:59 | disposition home or self-care (01) ==
LOC: LAB 14:42
PROVIDERS: PCP Internal Medicine; Visit Provider Internal Medicine Medical Oncology
DX: G25.81 Restless legs syndrome (principal); D64.9 Anemia, unspecified
CPT/HCPCS: 36415; 82728; 83540; 83550

== ENCOUNTER 2024-12-19 13:30 | Outpatient (CLI) | payer MEDICARE, SELFPAY ==
--- OUTSIDE RECORDS SUMMARY | 2013-02-15 06:15 | XMS_ITS | Continuity of Care Document ---
Author Organization [facility] Address [address] [place] [address] Phone Care Team Providers Care Guide Rail Cleaner Name Role Phone MD Pualy, Christopher Unavailable Unavailable Procedures Procedure Date CT HRT W/O DYE W/CA TEST Advance Directives Directive Yes / No Effective Date File Name No Information Encounters Encounter Description Practice Location Reason(s) For Visit Diagnoses Date Provider Providers Copied on Encounter [facility], [address], [place], [address], [place] tel:[phone] [facility] Eduardo Estrada No Information MD Christopher Coats. [address] , [address], [place], [place], [id number]. tel:[phone] Referring Provider: Rayray Sanchez, [address] [place] [address] [address], [place], [address]. tel:[phone] [facility], [address], [place], [address], [place] tel:[phone] [facility] Eduardo Estrada No Information MD Christopher Coats. [address], [facility] [place], [id number]. tel:[phone] Referring Provider: Rayray Sanchez, [address] [facility] [address], [place], [address]. tel:[phone] Family History Family Member Type Diagnosis Age [...]
--- OUTSIDE RECORDS SUMMARY | 2024-05-19 17:00 | XMS_ITS ---
Author Organization [facility] Address [address] [place] [address] Care Team Providers Care Geospatial Technician Name Role Phone Js Jack Primary Care Provider UnavailArmin Clark Unavailable [phone] Self Referral, Self Unavailable Unavailable Migration, Provider Unavailable Unavailable Allergies Allergen (clinical drug ingredient) Drug/Non Drug Allergy documented on EMR Reaction Allergy Type Onset Date Status eszopiclone Lunesta Unknown Drug Allergy Activ e REASON FOR VISIT [facility] To [facility] Conversion Encounter Medications Medication SIG (Take, Route, Frequency, Duration) Notes Start Date End Date Status Rosuvastatin Calcium 20 MG 1 tab(s) oral ly once a day for 30 day(s) 09/01/2020 Unknown Metoprolol Succinate ER 50 MG (Prior Auth#:[id number]) for 90 Unknown Gabapentin 600 MG 1 tab(s) orally TID for 90 days Active diazePAM 2 MG 1 or 2 orally once P RN anxiety - procedure for 1 days 01/12/2021 Active Meloxicam 15 MG (Prior Auth#:[id number]) for 90 Unknown Climara 0.05 MG/24HR (Prior Auth#:[id number]) for 84 Unknown Encounters Encounter Location Date Provider Diagnosis [facility] [address] [place] [address] 05/19/2024 Provider Migration Plan Of Treatment No Information Progress Notes * Bianca ZAZUETADOB: [birth year] (69 yo F)Acc No.[id number]:05/19/2024 Patient: Bianca HODGES Provider: Jemma devlin Migration :1955 A ge:68 Y S ex:Female Date:05/19/2024 Address:[address] [id number] Pcp:Js Jack Subjective: * Chief Complaints: * [...] MG Tablet Extended Release 24 Hour (Prior Auth#:[id number]) , Unknown Climara 0.05 MG/24HR Patch Weekly (Prior Auth#:[id number]) , Unknown Meloxicam 15 MG Tablet (Prior Auth#:[id number]) * Allergies: L unesta. Objective: * Vitals: Assessment: Plan: * Treatment: * Billing Information: * Visit Code: * Procedure Codes: * Electronic signature of Prov ider Migration on 12/20/2024 at 01:48 PM EDT Sign off status: Pending * Provider: Jemma devlin Migration Date: 1 07/20/2023 Generated for Abelino tony/Kunal/Naeem on: 0 12/20/2024 01:48 PM EDT
--- OUTSIDE RECORDS SUMMARY | 2024-12-20 13:49 | XMS_ITS | Clinical Summary ---
Author Organization [facility] Address [address] [facility] [address] [place] [phone] Phone Care Team Providers Care Front Services Agent Name Role Phone W, Sulma Unavailable Unavailable Conditions or Problems Problem Name Problem Code Onset Date Status Entry Date Provider Comment Standard Description Annotate Sepsis 24337921 (SNOMED CT) 07/06 Resolved 07/06 Sulma W Sepsis Sepsis 53666411 (SNOMED CT) 07/06 Removed 07/06 Jaya Cali MD Sepsis Sepsis 37107344 (SNOMED CT) 06/27 Inactive 06/27 Sulma W Sepsis Leukocytosis 909305869 (SNOMED CT) 06/27 Active 06/27 Jaya Cali MD Leukocytosis Sepsis 65487415 (SNOMED CT) 06/27 Removed 06/27 Jaya Cali MD Sepsis Nausea 369629261 (SNOMED CT) 06/26 Active 06/26 Zari Tapia Nausea ARF with tubular necrosis 282216552003 101 (SNOMED CT) 06/26 Active 06/26 Zari Tapia Acute renal failure due to tubular necrosis Hypokalemia 44495887 (SNOMED CT) 06/26 Active 06/26 Zari Tapia Hypokalemia Abscess, intra-abdomi nal 72423319 (SNOMED CT) 06/26 Active 06/26 Zari Tapia Acute bacterial peritonitis Medications Medication Instructions Start Date Stop Date Generic Name [facility] Provider INVANZ 1 GM INJECTION SOLUTION RECONSTITUTED Invanz 1GM IV Q24hrs - INPAT ERTAPENEM SODIUM 77966842477 Sandy Ledezma RN INVANZ 1 GM INJECTION SOLUTION RECONSTITUTED Invanz 1G IV Q24hrs- INPAT ERTAPENEM SODIUM 91945356336 Ana María Recinos INVANZ 1 GM INJECTION SOLUTION RECONSTITUTED Invanz 1GM IV Q24hrs - INPAT ERTAPENEM SODIUM 79200917466 Ramona Messer INVANZ 1 GM INJECTION SOLUTION RECONSTITUTED Invanz 1G IV Q24hrs- INPAT ERTAPENEM SODIUM 91237237001 Martha Roe ROSUVASTATIN CALCIUM 20 MG TABS once daily ROSUVASTATIN CALCIUM 52563354432 Haileyshagufta Mensah CLIMARA 0.05 MG/24HR PTWK once weekly ESTRADIOL 03448970002 Hailey Mensah KOMBIGLYZE XR 5-1000 MG ORAL TABLET EXTENDED RELEASE 24 HOUR once daily SAXAGLIPTIN-MET FORMIN 31849564236 Hailey Mensah HYDROXYZINE HCL 25 MG TABS one daily HYDROXYZINE HCL 19532318777 Hailey Micheli ASPIRIN 81 MG CHEW one tablet daily ASPIRIN 66185440886 Hailey Micheli COZAAR 50 MG TABS one daily LOSARTAN POTASSIUM 26230772448 Hailey Mensah METOPROLOL SUCCINATE ER 50 MG [id number] one time daily METOPROLOL SUCCINATE 95363736885 Hailey Mensah NEXIUM 20 MG PACK one tablet three times daily ESOMEPRAZOLE MAGNESIUM 46994236835 Hailey Mensah Medications Administered No information available. [...] in Serum or Plasma Lab Report: COMPREHENSIVE FL TABOLIC PANEL ANIONGAP 11.0 mmol/L 5.0-15.0 anion [...]
--- OUTSIDE RECORDS SUMMARY | 2024-12-20 13:49 | XMS_ITS | Patient Health Record ---
Author Organization [facility] Address [address] [facility] [address] [place] [address] Care Team Providers Care Sprinkler Driver Name Role Phone Clara Crawford Unavailable [phone] Allergies Allergen (clinical drug ingredient) Drug/Non Drug Allergy documented on EMR Reaction Allergy Type Onset Date Status eszopiclone LUNESTA (uncoded) Unspecified Allergy 01/07/20 Active Reason For Referral No Information Problems Problem Type SNOMED Code ICD Code Onset Dates Problem Status W/U Status Risk Notes Problem Gynecological examination normal (147430496853096 ) Cervical smear, as part of routine gynecological examination (Z01.419) 01/07/20 Active confirmed Annual without abnormal findings Problem Hormone replacement therapy (762256272) Counseling for estrogen replacement therapy (Z79.890) 01/07/20 Active confirmed HRT Plan Of Treatment No Information Medical (General) History Medical History History ICD Code acid reflux HTN METOPROLOL TARTRATE TABLET ESTRADIOL 0.05 MG/24HR TRANSDERMAL PATCH TWICE WEEKLY, TRANS HYDROCHLOROTHIAZIDE TABLET LOSARTAN POTASSIUM TABLET NEXIUM PACKET Surgical History Surgery Date(Month/Year) hysterectomy - 1999 pelvic prolapse repair - 03/2019 breast lift - 2007 back surgery - 12/10/19
--- OUTSIDE RECORDS SUMMARY | 2024-12-20 13:49 | XMS_ITS | Clinical Summary ---
Author Organization Healthcare Address [address] [place] [address] Care Team Providers Care Senior Marketing Analyst Name Role Phone Js Jack MD Primary Care Provider [phone] Family History Medical History Relation Name Comments [...] Health Maintenance Due Date Last Done Comments [facility]-Bone Density Scan 1954 [facility]-Depression Screening 1954 [facility]-/Child/Adol SDOH Screenings 1954 [facility]- SDOH Screenings 1972 [facility]-Adult SDOH Screenings 1972 [facility]-DTaP,Tdap,and Td Vaccine s (1 - Tdap) 1973 CT Colonography 1999 Colonoscopy 1999 FIT-DNA 1999 FIT 1999 FOBT 1999 Sigmoidoscopy 1999 [facility]-Colorectal Cancer Screening 1999 [facility]-Pneumococcal Vaccine: 50 + Years (1 of 1 - PCV) 2004 [facility]-Zoster Vaccines (1 of 2) 2004 [id number] Vaccine (1 - 20 24-25 season) 2024 [facility]-Influenza Vaccine (#1) 2025 [facility]-RSV Vaccine: 60+ Years o r (1 - 1-dose 75+ series) 2029 HPV [...] on patient's age to complete this topic Care Teams Senior Marketing Analyst Relationship Specialty Start Date End Date Js Jack MD [address] [place] [address] PCP - General 10/24/20
== END 2024-12-19 23:59 | disposition home or self-care (01) ==
LOC: LAB.DROPOF 12-20 13:45
PROVIDERS: PCP Podiatrist; Visit Provider Podiatrist
DX: S90.424A Blister (nonthermal), right lesser toe(s), initial encounter (principal)
CPT/HCPCS: 87070; 87077; 87205

== ENCOUNTER 2025-02-08 14:00 | Outpatient (RCR) | payer MEDICARE, SELFPAY | END 2025-02-08 23:59 | disposition home or self-care (01) | LOC: PT 14:00 | PROVIDERS: PCP Podiatrist; Visit Provider Physician Assistant Surgical | DX: M17.11 Unilateral primary osteoarthritis, right knee (principal) | CPT/HCPCS: 97016; 97110; 97140; 97163; 97530 ==

== ENCOUNTER 2025-02-25 17:07 | Emergency (ER) | payer MEDICARE, SELFPAY ==
--- OUTSIDE RECORDS SUMMARY | 2024-05-19 17:00 | XMS_ITS ---
Author Organization [facility] Address [address] [place] [address] Care Team Providers Care Sole Molder Name Role Phone GueroJs Primary Care Provider UnavailArmin Clark Unavailable Self Referral, Self Unavailable Unavailable Migration, Provider Unavailable Unavailable Allergies Allergen (clinical drug ingredient) Drug/Non Drug Allergy documented on EMR Reaction Allergy Type Onset Date Status eszopiclone Lunesta Unknown Drug Allergy Activ e REASON FOR VISIT [facility] To [facility] Conversion Encounter Medications Medication SIG (Take, Route, Frequency, Duration) Notes Start Date End Date Status Rosuvastatin Calcium 20 MG Tablet 1 tab(s) orally once a day; Duration: 30 day(s) 09/01/2020 Unknown Metoprolol Succinate ER 50 MG Tablet Extended Release 24 Hour (Prior Auth#:[id number]); Duration: 90 Unknown Gabapentin 600 MG Tablet 1 tab(s) orally TID; Duration: 90 days Active diazePAM 2 MG Tablet 1 or 2 orally once PRN anxiety - procedure; Duration: 1 days 01/12/2021 Active Meloxicam 15 MG Tablet (Prior Auth#:[id number]); Duration: 90 Unknown Climara 0.05 MG/24HR Patch Weekly (Prior Auth#:[id number]); Duration: 84 Unknown Encounters Encounter Location Date Provider Diagnosis [facility] [address] [place] [address] 05/19/2024 Provider Migration Plan Of Treatment No Information Progress Notes * Bianca ZAZUETADOB: [birth year] (69 yo F)Acc No.[id number]:05/19/2024 Patient: Bianca Rojo Provider: Jemma devlin Migration :1955 A ge:68 Y S ex:Female Date:05/19/2024 Address: [address], [id number] Pcp:Js Jack Subjective: * Chief Complaints: * M ultum To Medispan Conversion Encounter * Medications: T akingGabapentin 600 MG Tablet 1 tab(s) orally TID diazePAM 2 MG Tablet 1 or 2 orally once PRN anxiety - procedure Taking Gabapentin 600 MG Tablet 1 tab(s) orally TID Taking diazePAM 2 MG Tablet 1 or 2 orally once PRN anxiety - procedure UnknownRosuvastatin Calcium 20 MG Tablet 1 tab(s) orally once a day Metoprolol Succinate ER 50 MG Tablet Extended Release 24 Hour (Prior Auth#:[id number]) Climara 0.05 MG/24HR Patch Weekly (Prior Auth#:[id number]) Meloxicam 15 MG Tablet (Prior Auth#:[id number]) Unknown Rosuvastatin Calcium 20 MG Tablet 1 tab(s) orally once a day Unknown Metoprolol Succinate ER 50 MG Tablet Extended Release 24 Hour (Prior Auth#:[id number]) Unknown Climara 0.05 MG/24HR Patch Weekly (Prior Auth#:[id number]) Unknown Meloxicam 15 MG Tablet (Prior Auth#:[id number]) * Allergies: L unesta * Electronic signature of Prov ider Migration on 02/25/2025 at 05:20 PM EDT Sign off status: Pending * Provider: Jemma Rodriguez Date: 07/20/2023 Generated for Abelino tony/Kunal/Ernestosmitting on: 0 02/25/2025 05:20 PM EDT
--- OUTSIDE RECORDS SUMMARY | 2025-01-09 05:41 | XMS_ITS | Encounter Summary ---
Author Organization [facility] ystem Address [address] [place] [address] Care Team Providers Care Sec Accountant Name Role Phone Js Jack MD Primary Care Provider [phone] Reason for Visit * Auth/Cert Specialty Diagnoses / Procedures Referred By Contac t Referred To Contact Diagnoses Primary osteoarthritis of right knee Primary osteoarthritis of right knee [M17.11] Procedures IN ARTHRP KNE CONDYLE&PLATU MEDIAL&LAT COMPARTMENTS TOTAL KNEE ARTHROPLASTY WITH RIGHT Referral ID Status Reason Start Date Expiration Date Visits Re quested Visits Authorized [id number] 1 1 Encounter Details Date Type Department Care Team (Late st Contact Info) Description 01/09/2025 5:41 AM EDT - 01/10/2025 4:15 PM EDT Hospital Encounter [address] [place] [address] Brenton Hood MD [address] [address] S/P TKR (total knee replacement), right (Primary Dx); Primary osteoarthritis of right knee Discharge Disposition: Home or Self Care Social History Tobacco Use Types Packs/Day Years Used Date Smoking Tobacco: Never Smokeless Tobacco: Never Alcohol Use Standard Drinks/Week Comments Yes 10 (1 standard drink = 0.6 oz pu re alcohol) 1-2 GLASSES OF RED WINE AUDIT-C Answer Date Recorded Q1: How often do you have a drink containing alcohol? Never 01/09/2025 Q2: How many drinks containi ng alcohol do you have on a typical day when you are drinking? Patient does not drink Q3: How often do you have si x or more drinks on one occasion? Never 01/09/2025 PHQ-2 Answer Date Recorded Retired PHQ-9: Brief Depression Severity Measure Score 0 04/21/2023 Abuse Screen Answer Date Recorded Feels Unsafe at Home or Work/School no 01/09/2025 Feels Threatened by Someone no 12/13 Does Anyone Try to Keep You From Having Contact with Others or Doing Things Outside Your Home? no 01/09/2025 Physical Signs of Abuse Present no 01/09/2025 Housing Stability Answer Date Recorded Current Living Arrangements home 12/13 Potentially Unsafe Housing Conditions Not on rowena e 01/10/2025 Disabilities Answer Date Recorded Difficulty Concentrating, Remembering or Making Decisions no 01/09/2025 Difficulty Managing Errands Independently no 01/09/2025 Education Answer Date Recorded Help with school or training? Not on file Preferred Language Canadian 12/26/2024 PHQ-2 Answer Date Recorded Retired PHQ-9: Brief Depression Severity Measure Score 0 01/10/2024 Comments No Sex and Gender Information Value Date Recorded Sex Assigned at Female 01/28/2025 9:25 PM EDT Legal Sex Female 10:01 AM EDT Gender Identity Not on file Sexual Orientation Not on file documented as of this encounter Last Filed Vital Signs Vital Sign Reading Time Taken Comments Blood Pressure 114/84 01/10/2025 6:22 AM EDT Pulse 65 01/10/2025 6:22 AM EDT Temperature 36.6 C (97.9 F) 01/10/2025 6:22 AM EDT Respiratory Rate 16 01/10/2025 6:22 AM EDT Oxygen Saturation 95% 01/10/2025 6:22 AM EDT Inhaled Oxygen Concentration - - Weight 72.1 kg (159 lb) 01/09/2025 6:16 AM EDT Height 161.3 cm (5' 3.5 ) 01/09/2025 6:16 AM EDT Body Mass Index 27.72 01/09/2025 6:16 AM EDT documented in this encounter Functional Status * Question Answer Date of Assessment Author 1. Wish to be (Past 1 Month) No 01/09/2025 6:17 AM EDT Maria Teresa Pruett RN 2. Non-Specific Active Suicidal Thoughts (Past 1 Month) No 01/09/2025 6:17 AM EDT Glenny Pruett RN * Calculated C-SSRS Risk Score (Lifetime/Recent) Answer Date of Assessment Author No Risk Indicated 01/09/2025 6:17 AM EDT Glenny Yu RN * [place] Suicide Severity Rating Scale (Screener/Recent Self-Report) Question Answer Date of Assessment Author 6. Suicidal Behavior (Lifetime) No 6:17 AM EDT Glenny Pruett RN documented as of this encounter Discharge Summaries * Levi Howell MD - 01/10/2025 2:12 PM EDT Images from the original note were not included. Patient Name: Bianca Berrios : 1955 DOS: 01/10/2025 Attending: Brenton Hood MD Primary Care Provider: Js Jack MD Date of Admission:.01/09/2025 5:41 AM Date of Discharge: 01/10/2025 Discharge Diagnosis: Status post total right knee replacement HTN (hypertension) Hyperlipidemia MILEY (obstructive sleep apnea) Arthritis of knee Hospital Course At admit: Patient is a pleasant 69 y.o. female presented for scheduled surgery by Dr. Hood. She underwent right total knee arthroplasty under spinal anesthesia. She tolerated surgery well and was admitted for further medical management. Her knee has been painful since she fell on it in June. She has been using a cane intermittently with ambulation. Conservative treatments failed to provide lasting benefits. When seen postop she is doing well. Her pain is well-controlled. She denies nausea, shortness of breath or chest pain. No history of DVT or PE. After admit: Patient was provided pain medications as needed for pain control, along with adductor canal nerve block infusion of Ropivacaine. Adjustments were made to pain medications to optimize postop pain management. Risks and benefits ofopiate medications discussed with patient. WINSTON report was reviewed. She was seen by PT and OT and has progressed well over her stay. Pt used an IS for atelectasis prophylaxis and asa along with mechanicals for DVT prophylaxis. Home medications were resumed as appropriate, and labs were monitored and remained fairly stable. With the progress she has made, is ready for DC home today. She will have an Infupump ( instructed on it during this admit). Discussed with patient regarding plan and she shows understanding and agreement. Patient will have PT following discharge. Procedures Performed Procedure(s): TOTAL KNEE ARTHROPLASTY WITH ERIN ROBOT Pertinent Test Results: I reviewed the patient's new clinical results. Results from last 7 days Lab Units 01/10/25 0753 WBC 10*3/mm3 14.13* HEMOGLOBIN g/dL 12.6 HEMATOCRIT % 37.7 PLATELETS 10*3/mm3 247 Results from last 7 days Lab Units 01/10/25 0753 01/09/25 0634 SODIUM mmol/L 132* -- POTASSIUM mmol/L 3.7 3.9 CHLORIDE mmol/L 95* -- CO2 mmol/L 28.4 -- BUN mg/dL 14.9 -- CREATININE mg/dL 0.77 -- CALCIUM mg/dL 9.2 -- GLUCOSE mg/dL 122* -- I reviewed the patient's new imaging including images and reports. Physical therapy Goal Outcome Evaluation: Plan of Care Reviewed With: patient Progress: improving Outcome Evaluation: Pt increased ambulation distance to 300 ft w/ FWW, CGA. No LOB or knee bucklingnoted. Pt would continue to benefit from IP PT services while hospitalized to address deficits in strength, balance, and activity tolerance. Pt is functionally cleared by PT. Recommend d/c home w/ assist and OP PT once medically appropriate. Anticipated Discharge Disposition (PT): home with assist, home with outpatient therapy services Discharge Assessment: Visit Vitals BP 114/84 (BP Location: Left arm, Patient Position: Lying) Pulse 65 Temp 97.9 ??F (36.6 ??C) (Oral) Resp 16 Ht 161.3 cm (63.5 ) Wt 72.1 kg (159 lb) SpO2 95% BMI 27.72 kg/m?? Temp (24hrs), Av.6 ??F (36.4 ??C), Min:97 ??F (36.1 ??C), Max:97.9 ??F (36.6 ??C) General Appearance: Alert, cooperative, in no acute distress Lungs: Clear to auscultation,respirations regular, even and unlabored Heart: Regular rhythm and normal rate, normal S1 and S2 Abdomen: Normal bowel sounds, no masses, no organomegaly, soft non-tender, non- distended, no guarding, no rebound tenderness Extremities: CDI dressing surgical knee . ACB cath present, infupump. Pulses: Pulses palpable and equal bilaterally Skin: No bleeding, bruising or rash Neurologic: Cranial nerves 2 - 12 grossly intact, sensation intact, Flexion and dorsiflexion intactbilateral feet. Discharge Disposition: Home. Discharge Medications New Medications Instructions Start Date acetaminophen 500 MG tablet Commonly known as: TYLENOL 1,000 mg, Oral, Every 8 Hours, Take every 8 hours as needed after 1 week aspirin 81 MG EC tablet Commonly known as: ASPIR 81 mg, Oral, 2 Times Daily Start Date: January 11, 2025 docusate sodium 100 MG capsule Commonly known as: COLACE 100 mg, Oral, 2 Times Daily meloxicam 15 MG tablet Commonly known as: MOBIC 15 mg, Oral, Daily Start Date: January 11, 2025 oxyCODONE 5 MG immediate release tablet Commonly known as: ROXICODONE 5 mg, Oral, Every 4 Hours PRN ropivacaine 0.2 % infusion (INFUSYSTEM) Commonly known as: NAROPIN 2 mL/hr (4 mg/hr), Peripheral Nerve, Continuous Continue These Medications Instructions Start Date amLODIPine 5 MG tablet Commonly known as: NORVASC 1 tablet, Nightly COQ10 PO 300 mg, Nightly DULoxetine 60 MG capsule Commonly known as: CYMBALTA 1 capsule, Nightly estradiol 0.05 MG/24HR patch Commonly known as: CLIMARA 1 patch, Weekly FAMOTIDINE PO 40 mg, Nightly HORIZANT PO 1 tablet, Every Evening hydroCHLOROthiazide 25 MG tablet 1 tablet, Nightly levocetirizine 5 MG tablet Commonly known as: XYZAL 5 mg, Every Evening LORazepam 0.5 MG tablet Commonly known as: ATIVAN TAKE ONE TABLET BY MOUTH EVERY 4 TO 6 HOURS NEEDED MAY CAUSE DROWSINESS max 3 tablets PER day MAGNESIUM DR PO 1 tablet, Oral, Nightly melatonin 5 MG tablet tablet 5 mg, Nightly metoprolol succinate XL 50 MG 24 hr tablet Commonly known as: TOPROL-XL 1 tablet, Nightly multivitamin with minerals tablet tablet 1 tablet, Daily pantoprazole 40 MG EC tablet Commonly known as: PROTONIX 40 mg, Daily PROBIOTIC ADVANCED PO 1 capsule, Oral, Daily Rheumate capsule 1 capsule, Oral, Daily rosuvastatin 20 MG tablet Commonly known as: CRESTOR 20 mg, Nightly vitamin B-6 100 MG tablet Commonly known as: PYRIDOXINE 100 mg, Oral, Daily vitamin D3 125 MCG (5000 UT) tablet tablet 5,000 Units, Daily Stop These Medications Chlorhexidine Gluconate 4 % solution Discharge Diet: Resume prior. Activity at Discharge: Protected Weight bearing as tolerated Dressing to remain in place for 7 days. May remove on POD#7. If no drainage, may shower on POD#10. No submerging wound in water. If drainage is noted, sterile dressing should be placed and wound checked daily. No showering until wound has remained dry for 72 consecutive hours. Future Appointments Date Time Provider Department Center 01/29/2025 1:30 PM Kaylin Alcantara PA-C [facility] 03/01/2025 11:00 AM [facility] MRI 1 [facility] MRI None 03/01/2025 2:00 PM Gaston Barnard MD [facility] Dragon disclaimer: Part of this encounter note is an electronic statement clerks manager/translation of spoken language to printed text. The electronic translation of spoken language may permit erroneous, or at times, nonsensicalwords or phrases to be inadvertently transcribed; Although I have reviewed the note for such errors, some may still exist. Levi Howell MD 01/10/25 14:12 EDT documented in this encounter Discharge Instructions * Discharge Instructions* Trina Zhang RN - 01/09/2025 9:04 AM EDT Images from the original note were not included. DISCHARGE INSTRUCTIONS Dr. Hood Total Knee Replacement/ Partial (Uni) Knee Replacement Wound Care 1) Keep wound / incision area clean and dry. 2) Dressing to remain in place until post-operative day 7. Upon dressing removal, assess for wound drainage. If no drainage is present, keep wound / incision area open to air as much as possible. If drainage is present, place sterile dressing to cover wound and assess daily. If drainage continues to occur after post-operative day 14, call the office for an urgent appointment. (You should be seen in the clinic within 1-2 days of calling). DO NOT REMOVE SUTURES (IF PRESENT) UNDER ANY CIRCUMSTANCES PRIOR TO FOLLOW UP APPOINTMENT. 3) No baths or swimming until otherwise instructed. The wound must remain dry for 10 days after surgery. After 10 days, you may begin to shower only if no drainage is present. No submerging the woundunder standing water until cleared by your physician (no baths, hot tubs, swimming pools, etc). Sponge baths are the best way to perform personal hygiene while at the same time protecting the wound from moisture. 4) Prior to showering, the wound must remain dry for 72 consecutive hours (no drainage whatsoever) prior to showering. If the wound drains or spots, the clock resets - make sure the wound has been drainage-free for 72 consecutive hours. 5) Once you are allowed to get the wound wet, please use gentle soap to wash the wound area. DO NOTaggressively scrub the wound with a washcloth or bath sponge. Please visually inspect your wound(s)at least once daily. If the wound(s) are in a difficult to see location, please use a mirror or have someone else assist with visual inspection. 6) No scrubbing the wound. You may pad dry the wound, but do not rub, as this may open up the wound and pre-dispose to wound infection. 7) Do not apply lotions or creams to incision site, unless instructed otherwise. 8) Observe for redness, swelling, or drainage. Please call the clinic immediately if you have fevers, chills with warmth/redness surrounding wound site or if you notice pus drainage from the wound site Activity No heavy lifting objects greater than 10 pounds. No [address] while on narcotic pain medication. No submerging wound under standing water (pool, bath tub, etc.) until otherwise instructed. You may be protected weightbearing as tolerated on your operative (right lower) extremity Use crutches or a walker for ambulation. Wean as appropriate per physical therapist's discretion. Do not sleep with a pillow behind your knee. You may sleep with a pillow behind your Achilles or foot. This will prevent your knee from getting stiff in the flexed ( bent ) position and will encourage full extension (leg straightening). Be vigilant in terms of working on full knee extension and flexion. Your goal should be 0 to 90 degrees by 2 weeks post-op - MINIMUM! Knee range of motion as tolerated. Blood Clot Prophylaxis (Aspirin vs. Lovenox vs. Eliquis administration is determined by your surgeon and tailored to your specific risk profile. You will be discharged with one of these medications.) You will need to complete a total 4 week course of enteric coated aspirin 325 mg (or 81mg) twice daily or Eliquis 2.5mg twice daily, in order to minimize your risk of blood clots following surgery. You will be supplied with a prescription to obtain this. Alternatively, you will need to compete a total 2 week course of Lovenox after surgery (followed by a 2 week course of aspirin twice daily), in order to minimize the risk of blood clots following surgery. Lovenox requires a single shot in the abdomen, to be taken once daily. You will be supplied with the prescription to obtain this. [facility], the nursing staff will instruct you on self- administration of the Lovenox, if you will bereturning directly home from the hospital. Discharge Pain Medications You will be given a prescription for pain medication. You should start taking this the same day after your surgery. Wean off as tolerated. Do not wait to take the pain medication until the pain is severe, as it will be difficult to catch up once this occurs. The pain medication usually reaches its full effect ~1 hour after ingesting. If you have been sent home on Colace, this medication should be taken until you are off all narcotic (i.e. Oxycodone, etc) pain medications, in order to prevent constipation. If you have been sent home with a combination of oxycodone and Tylenol, please take Tylenol as scheduled. You must be careful not to exceed 4,000mg (4 grams) of Tylenol. The oxycodone isto be taken as needed for breakthrough pain. Some common side effects of the narcotic pain medications include nausea and itching. Benadryl is a great over the counter medication that helps calm your stomach, decreases your anxiety levels, and minimizes the itching. You can easily purchase this at your local pharmacy as an doji-xio-ibpoumm medication. Please abide by the instructions as printedon the bottle. If your nausea persists, make sure to take small amounts of crackers or other inside sales foods. Follow-Up Follow-up with Dr. Hood's office in 3 weeks from the surgery date for a post- operative evaluation. Have the following xrays done upon arrival to the follow- up appointment: 3 views of operative knee. Please call Dr. Hood's office at for orthopaedic appointments or questions.InfuBLOCK - Patient Information What is a pain pump? The InfuBLOCK pump delivers post-operative, non-narcotic, numbing medication to the nerve near the surgical site for pain relief. Where can I find information about my pain pump? For more information about your pain pump, scan the QR code. For additional patient resources, visit [email or web address]. While your physician is your primary source for information about your treatment there may be timesduring your treatment that you need assistance with your infusion pump. If you need assistance take the following steps: The [facility] Hotline is Here for You 03/01. Please call for the following concerns or complications: Answers to questions about your infusion pump Tubing disconnect Assistance with pump alarms Dislodged catheter Excessive leakage noted from pump Inadequate pain control 2. [facility] Anesthesia Acute Pain Service: is available 03/01 for any furtherneeds or concerns about medication or pain control. Nerve Catheter Removal Instructions When your device is empty: Remove your catheter by pulling the dressing off slowly (like you would remove a regular bandage). The catheter should pull right out of the skin. Check that the BLUE tip is intact. If the catheter is stuck, reposition your extremity and pull slowly until removed. *If catheter is HURTING and WON'T come out, stop and call for further assistance. Remove medication bag from the black carrying case. Cut the tubing on right and left side of pump, and discard the medication bag and tubing into garbage. Place the pump and black carrying case into the plastic bag and then place this into the return box. Seal box with blue stickers and return to [place] postal service. THIS IS PRE-PAID POSTAGE. [facility] COLD THERAPY - PATIENT INSTRUCTION SHEET Cold Compression Therapy for your comfort and rehabilitation Your caregivers want you to be productive in your rehab and comfortable during your stay. In keeping with those goals, you will be receiving an SMI Cold Therapy Wrap to help ease post-operative pain and swelling that might keep you from getting back on track! Your SMI Cold Therapy Wrap is effectiveand [id number], and you will be encouraged to apply it throughout your hospital stay and at homethrough the duration of your recovery. When you are ready to go home Be sure to take your SMI Cold Therapy Wrap and both sets of Gel Bags with you for continued comfortand use throughout your rehabilitation. If you don't already have them, ask your nurse or aide to retrieve your SMI Gel Bags from the patient freezer. Home use precautions Always follow your medical professional's application instructions upon discharge. Your SMI Cold Therapy Wrap and Gel Bags are designed to last for months following your surgery. Never heat the Gel Bags unless specified by your healthcare provider. Supervision is advised when using this product on children or geriatric patients. To avoid danger of suffocation, please keep the outer plastic packaging away from children & pets. Cold Therapy Instructions Place Gel Bags in a freezer set ?? of the way to max temperature for at least (4) hours. For best results, lay the Gel Bags flat and [id number] in the freezer. Once frozen, slide Gel Bags into the gel pouch and secure your wrap to the affected area with the straps. Gel wraps that have been stored in a freezer for an extended period of time may require a (10) minute period of softening up in a room temperature environment before application. The gel pouch acts as a protective barrier. NEVER place frozen bags directly onto skin, as this maycause frostbite injury. The [facility] Cold Therapy Wrap is designed to be able to be worm while ambulating. The compression straps can be secured well enough so that the Wrap won't fall off while moving. Wrap Application Videos can be viewed at [email or web address]. An additional protective barrier such as clothing, a washcloth, hand-towel or pillowcase may be used during prolonged treatment applications. The Gel-Pouch and Wrap are both Latex-Free and the Gel Bag ingredients are non toxic. [facility] Wrap care instructions The [facility] Cold Therapy Wrap may be hand washed and hung to dry when needed. [facility] re-order information Additional [facility] body specific wraps and/or Gel Bags can be re-ordered from [employer] or call [phone] ([phone]) * Attachments The following attachments cannot be sent through Care Everywhere. * Total Knee Replacement Surgery: What to Expect (Canadian) * How to Use an Incentive Spirometer (Canadian) * Oxycodone Extended-Release Tablets (Canadian) * Acetaminophen Capsules or Tablets (Canadian) * Meloxicam Tablets (Canadian) * Docusate Capsules or Tablets (Canadian) documented in this encounter Medications at Time of Discharge amLODIPine (NORVASC) 5 MG tablet Take 1 tablet by mouth Every Night. 08/16/2023 Cholecalciferol (vitamin D3) 125 MCG (5000 UT) tablet tablet Take 1 tablet by mouth Daily. Coenzyme Q10 (COQ10 PO) Take 300 mg by mouth Every Night. DULoxetine (CYMBALTA) 60 MG capsule Take 1 capsule by mouth Every Night. 04/22/2023 estradiol (CLIMARA) 0.05 MG/24HR patch Place 1 patch on the skin as directed by provider 1 (One) Time Per Week. Tuesday11/03/2015 FAMOTIDINE PO Take 40 mg by mouth Every Night. Gabapentin Enacarbil (HORIZANT PO) Take 1 tablet by mouth Every Evening. hydroCHLOROthiazid e 25 MG tablet Take 1 tablet by mouth Every Night. 10/15/2024 levocetirizine (XYZAL) 5 MG tablet Take 1 tablet by mouth Every Evening. LORazepam (ATIVAN) 0.5 MG tablet TAKE ONE TABLET BY MOUTH EVERY 4 TO 6 HOURS NEEDED MAY CAUSE DROWSINESS max 3 tablets PER day 10/18/2024 Magnesium Chloride (MAGNESIUM DR PO) Take 1 tablet by mouth Every Night. melatonin 5 MG tablet tablet Take 1 tablet by mouth Every Night. metoprolol succinate XL (TOPROL-XL) 50 MG 24 hr tablet Take 1 tablet by mouth Every Night. 10/30/2024 multivitamin with minerals (MULTIVITAMIN ADULTS 50+ PO) Take 1 tablet by mouth Daily. pantoprazole (PROTONIX) 40 MG EC tablet Take 1 tablet by mouth Daily. Probiotic Product (PROBIOTIC ADVANCED PO) Take 1 capsule by mouth Daily. rosuvastatin (CRESTOR) 20 MG tablet Take 1 tablet by mouth Every Night. vitamin B-6 (PYRIDOXINE) 100 MG tabletIndications: Lumbar stenosis with neurogenic claudication Take 1 tablet by mouth Daily. 30 tablet 03/03/2023 acetaminophen (TYLENOL) 500 MG tablet Take 2 tablets by mouth EVERY 8 hours for 7 days. THEN take 1 tablet every 8 hours only NEEDED thereafter 60 tablet 01/10/2025 3:24 PM EDT 01/10/2025 5 docusate sodium (COLACE) 100 MG capsule Take 1 capsule by mouth 2 (Two) Times a Day for 15 days. 30 capsule 01/10/2025 3:24 PM EDT 01/10/2025 5 meloxicam (MOBIC) 15 MG tablet Take 1 tablet by mouth Daily for 15 days. 15 tablet 01/10/2025 3:24 PM EDT 01/11/2025 5 aspirin (ASPIR) 81 MG EC tablet Take 1 tablet by mouth 2 (Two) Times a Day. 60 tablet 01/10/2025 3:24 PM EDT 01/11/2025 5 Dietary Management Product (Rheumate) capsuleIndications :Lumbar stenosis with neurogenic claudication Take 1 capsule by mouth Daily. 90 capsule 2 06/20/2024 5 oxyCODONE (ROXICODONE) 5 MG immediate release tabletIndications: S/P TKR (total knee replacement), right Take 1 tablet by mouth Every 4 (Four) Hours As Needed for Severe Pain. 40 tablet 01/10/2025 3:24 PM EDT 01/09/2025 5 ropivacaine (NAROPIN) 0.2 % infusion (INFUSYSTEM) 4 mg/hr by Peripheral Nerve route Continuous. 01/10/2025 5 documented as of this encounter Progress Notes * Emil Mueller CRNA - 01/10/2025 9:02 AM EDT [facility] Acute pain service Inpatient Progress Note Patient Name: Bianca Berrios : 1955 Acute Pain Service Inpatient Progress Note: Analgesia:Excellent Pain Score:2/10 LOC: alert and awake Resp Status: room air Cardiac: VS stable Side Effects:None Catheter Site:clean, dressing intact and dry Cath type: peripheral nerve cath(InfuSystem) Volume: 1mL,8ml, 8ml InfuSystem Pump. Dosing/Volume: ropivacaine 0.2% Catheter Plan:Catheter to remain Insitu and Continue catheter infusion rate unchanged Comments: * Brenton Hood MD - 01/10/2025 7:25 AM EDT CHIEF COMPLAINT: Follow-up right total knee arthroplasty SUBJECTIVE Patient resting comfortably. Pain well-controlled. No events overnight. PHYSICAL THERAPY PROGRESS Outcome Evaluation: Pt presents s/p R TKA with decreased functional independence, decreased activity tolerance, and decreased balance compared to baseline. Pt ambulated 125ft with CGA and RW for support +1 for chair follow. Recommend continued skilled IP PT interventions. Recommend D/C home with assist and OPPT services when medically appropriate. (01/09/25 4207) OBJECTIVE Temp (24hrs), Av.6 ??F (36.4 ??C), Min:97 ??F (36.1 ??C), Max:97.9 ??F (36.6 ??C) Blood pressure 114/84, pulse 60, temperature 97.9 ??F (36.6 ??C), temperature source Oral, resp. rate 16, height 161.3 cm (63.5 ), weight 72.1 kg (159 lb), SpO2 96%. Lab Results (last 24 hours) No results found for the last 24 hours. PHYSICAL EXAM Right lower extremity: Dressing clean, dry and intact. Able to form straight leg raise without assist. Intact EHL, FHL, tibialis anterior, and gastrocsoleus. Sensation intact to light touch to deep peroneal, superficial peroneal, sural, saphenous, tibial nerves. 2+ palpable DP and PT pulses. Status post total right knee replacement HTN (hypertension) Hyperlipidemia MILEY (obstructive sleep apnea) Arthritis of knee PLAN / DISPOSITION: 1 Day Post-Op right total knee arthroplasty Protected weight bearing as tolerated right lower extremity, knee range of motion as tolerated Pain control PT/OT for post op mobilization and medical equipment needs 23 hours perioperative antibiotic prophylaxis SCD's bilateral lower extremities Aspirin for DVT prophylaxis Social work for discharge planning. Anticipate discharge home today. Dressing to remain in place for 7 days. May remove on POD#7. If no drainage, may shower on POD#10. No submerging wound in water. If drainage is noted, sterile dressing should be placed and wound checked daily. No showering until wound has remained dry for 72 consecutive hours. Follow up in 3 weeks for re-assessment. Future Appointments Date Time Provider Department Center 01/29/2025 1:30 PM Kaylin Alcantara PA-C [facility] 03/01/2025 11:00 AM [facility] MRI 1 [facility] MRI None 03/01/2025 2:00 PM Gaston Barnard MD [facility] Brenton Hood MD 01/10/25 07:25 EDT documented in this encounter H&P Notes * Sonia Edwards APRN - 01/09/2025 3:44 PM EDT Patient Name: Bianca Berrios : 1955 DOS: 01/09/2025 Attending: Brenton Hood MD Primary Care Provider: Js Jack MD Chief complaint: Right knee pain Subjective Patient is a pleasant 69 y.o. female presented for scheduled surgery by Dr. Hood. She underwent right total knee arthroplasty under spinal anesthesia. She tolerated surgery well and was admitted for further medical management. Her knee has been painful since she fell on it in June. She has been using a cane intermittently with ambulation. Conservative treatments failed to provide lasting benefits. When seen postop she is doing well. Her pain is well-controlled. She denies nausea, shortness of breath or chest pain. No history of DVT or PE. Allergies: Allergies Allergen Reactions Lunesta [Eszopiclone] Anaphylaxis Meds: Medications Prior to Admission Medication Sig Dispense Refill Last Dose/Taking amLODIPine (NORVASC) 5 MG tablet Take 1 tablet by mouth Every Night. 01/08/2025 at 9:00 PM Chlorhexidine Gluconate 4 % solution Shower daily with hibiclens solution as directed 5 days prior to surgery. 236 mL 0 01/08/2025 at 9:00 PM Cholecalciferol (vitamin D3) 125 MCG (5000 UT) tablet tablet Take 1 tablet by mouth Daily. 01/08/2025 at 11:00 AM DULoxetine (CYMBALTA) 60 MG capsule Take 1 capsule by mouth Every Night. 01/08/2025 at 11:00 AM FAMOTIDINE PO Take 40 mg by mouth Every Night. 01/08/2025 at 9:00 PM Gabapentin Enacarbil (HORIZANT PO) Take 1 tablet by mouth Every Evening. 01/08/2025 at 5:00 PM hydroCHLOROthiazide 25 MG tablet Take 1 tablet by mouth Every Night. 01/08/2025 at 9:00 PM levocetirizine (XYZAL) 5 MG tablet Take 1 tablet by mouth Every Evening. 01/08/2025 at 9:00 PM melatonin 5 MG tablet tablet Take 1 tablet by mouth Every Night. 01/08/2025 at 9:00 PM metoprolol succinate XL (TOPROL-XL) 50 MG 24 hr tablet Take 1 tablet by mouth Every Night. 01/08/2025 at 9:00 PM multivitamin with minerals (MULTIVITAMIN ADULTS 50+ PO) Take 1 tablet by mouth Daily. 01/08/2025 at 11:00 AM pantoprazole (PROTONIX) 40 MG EC tablet Take 1 tablet by mouth Daily. 01/08/2025 at 11:00 AM rosuvastatin (CRESTOR) 20 MG tablet Take 1 tablet by mouth Every Night. 01/08/2025 at 9:00 PM vitamin B-6 (PYRIDOXINE) 100 MG tablet Take 1 tablet by mouth Daily. 30 tablet 0 01/08/2025 at 11:00AM Coenzyme Q10 (COQ10 PO) Take 300 mg by mouth Every Night. 01/02/2025 Dietary Management Product (Rheumate) capsule Take 1 capsule by mouth Daily. 90 capsule 2 01/02/2025 estradiol (CLIMARA) 0.05 MG/24HR patch Place 1 patch on the skin as directed by provider 1 (One) Time Per Week. TUESDAY 9:00 PM LORazepam (ATIVAN) 0.5 MG tablet TAKE ONE TABLET BY MOUTH EVERY 4 TO 6 HOURS NEEDED MAY CAUSE DROWSINESS max 3 tablets PER day More than a month Magnesium Chloride (MAGNESIUM DR PO) Take 1 tablet by mouth Every Night. 01/07/2025 at 9:00 PM Probiotic Product (PROBIOTIC ADVANCED PO) Take 1 capsule by mouth Daily. 01/02/2025 History: Past Medical History: Diagnosis Date Anxiety Dean esophagus 2018 Bursitis of hip 2023 Cervical disc disorder 1999 Chronic pain disorder 2014 Claustrophobia 1994 Cough CHRONIC Degeneration of lumbar or lumbosacral intervertebral disc 05/20/2017 GERD (gastroesophageal reflux disease) History of esophageal stricture S/P dilation in 05/2013 History of meningioma STABLE Hyperlipidemia 2009 Hypertension 1998 Joint pain 2009 Hands Knee swelling 2022 Lumbar radiculopathy 05/31/2023 Mediastinal adenopathy stable and calcified.CT scan of the chest 04/01/2014 reports mediastinal and hilar adenopathy bilaterally with the largest lymph node measuring 2.3 cm. Findings appear stable over prior studies dating back to nearly 2 years Nausea & vomiting 04/21/2019 Osteoarthritis [address] scan of the chest 04/01/2014 reports a 4 mm noncalcified right upper lobe nodule with dependent atelectatic changes and there is also a small bulla identified in the left lower lobe. The right upper lobe nodule is stable over prior studies. RLS (restless legs syndrome) Sigmoid diverticulum Sleep apnea USES bipap Past Surgical History: Procedure Laterality Date ABDOMINAL SURGERY 03/16/19 Exploratory surgery related to potential bleed post previous surgery BACK SURGERY Discectomy 2020 BLADDER SUSPENSION COLONOSCOPY 2019 every 5 years ENDOSCOPY ESOPHAGEAL DILATATION Secondary to stricture HYSTERECTOMY 2000 LUMBAR DISCECTOMY Right 12/10/2019 Procedure: LUMBAR DISCECTOMY RIGHT L3-4; Surgeon: Gaston Barnard MD; Location: [facility]; Service: Neurosurgery; Laterality: Right; LUMBAR SYNOVIAL CYST REMOVAL 03/2020 RICCARDO FUNDOPLICATION History of Esophagogastric Fundoplasty Riccardo Fundoplication 2001 SALPINGO OOPHORECTOMY Bilateral SHOULDER ARTHROSCOPY W/ ROTATOR CUFF REPAIR Left 08/24/2022 Procedure: ARTHROSCOPIC ROTATOR CUFF REPAIR WITH LIMITED DEBRIDEMENT- LEFT; Surgeon: Rajesh Engel Jr., MD; Location: [facility]; Service: Orthopedics; Laterality: Left; SPINAL CORD STIMULATOR IMPLANT N/A 06/15/2023 Procedure: THORACIC LAMINOTOMY FOR SPINAL CORD STIMULATOR INSERTION PHASE 1; Surgeon: Gaston Barnard MD; Location: [facility]; Service: Neurosurgery; Laterality: N/A; UPPER GASTROINTESTINAL ENDOSCOPY 03/20/19 Family History Problem Relation Age of Onset Colon cancer Mother Arthritis Mother Cancer Mother Colon cancer age 68 Hyperlipidemia Mother Stroke Mother Hypertension Mother Diabetes Sister Diabetes Sister Social History Tobacco Use Smoking status: Never Smokeless tobacco: Never Vaping Use Vaping status: Never Used Substance Use Topics Alcohol use: Yes Alcohol/week: 10.0 standard drinks of alcohol Types: 10 Glasses of wine per week Comment: 1-2 GLASSES OF RED WINE Drug use: Never She is with 4 children. Review of Systems Pertinent items are noted in HPI, all other systems reviewed and negative Vital Signs BP 104/68 (BP Location: Left arm, Patient Position: Sitting) Pulse 57 Temp 97.7 ??F (36.5 ??C) (Oral) Resp 18 Ht 161.3 cm (63.5 ) Wt 72.1 kg (159 lb) SpO2 91% BMI 27.72 kg/m?? Physical Exam: General Appearance: Alert, cooperative, in no acute distress Head: Normocephalic, without obvious abnormality, atraumatic Eyes: Lids and lashes normal, conjunctivae and sclerae normal, no icterus, no pallor, corneas clear, Ears: Ears appear intact with no abnormalities noted Throat: No oral lesions, no thrush, oral mucosa moist Neck: No adenopathy, supple, trachea midline, no thyromegaly Lungs: Clear to auscultation,respirations regular, even and unlabored Heart: Regular rhythm and normal rate, normal S1 and S2 Abdomen: Normal bowel sounds, no masses, no organomegaly, soft nontender, nondistended, no guarding, no rebound tenderness Genitalia: Deferred Extremities: Right knee Dominik wrap CDI. Nerve block present. Pulses: Pulses palpable and equal bilaterally Skin: No bleeding, bruising or rash Neurologic: Cranial nerves 2 - 12 grossly intact. Flexion and dorsiflexion intact bilateral feet. I reviewed the patient's new clinical results. Results from last 7 days Lab Units 01/09/25 0634 POTASSIUM mmol/L 3.9 Lab Results Component Value Date HGBA1C 5.56 12/26/2024 Latest Reference Range & Units 12/26/24 12:24 Sodium 136 - 145 mmol/L 134 (L) Potassium 3.5 - 5.2 mmol/L 4.1 Chloride 98 - 107 mmol/L 96 (L) CO2 22.0 - 29.0 mmol/L 27.4 Anion Gap 5.0 - 15.0 mmol/L 10.6 BUN 8.0 - 23.0 mg/dL 15.1 Creatinine 0.57 - 1.00 mg/dL 0.69 BUN/Creatinine Ratio 7.0 - 25.0 21.9 eGFR >60.0 mL/min/1.73 93.5 Glucose 65 - 99 mg/dL 95 Calcium 8.6 - 10.5 mg/dL 9.8 Alkaline Phosphatase 39 - 117 U/L 60 Total Protein 6.0 - 8.5 g/dL 6.3 Albumin 3.5 - 5.2 g/dL 4.4 Globulin gm/dL 1.9 A/G Ratio g/dL 2.3 AST (SGOT) 1 - 32 U/L 31 ALT (SGPT) 1 - 33 U/L 25 Total Bilirubin 0.0 - 1.2 mg/dL 0.3 Hemoglobin A1C 4.80 - 5.60 % 5.56 Protime 12.2 - 15.3 Seconds 13.4 INR 0.89 - 1.12 0.97 PTT 22.0 - 39.0 seconds 25.5 WBC 3.40 - 10.80 10*3/mm3 5.59 RBC 3.77 - 5.28 10*6/mm3 4.45 Hemoglobin 12.0 - 15.9 g/dL 13.4 Hematocrit 34.0 - 46.6 % 41.2 Platelets 140 - 450 10*3/mm3 263 RDW 12.3 - 15.4 % 14.2 MCV 79.0 - 97.0 fL 92.6 MCH 26.6 - 33.0 pg 30.1 MCHC 31.5 - 35.7 g/dL 32.5 MPV 6.0 - 12.0 fL 8.7 (L): Data is abnormally low Assessment and Plan: Status post total right knee replacement Arthritis of knee HTN (hypertension) Hyperlipidemia MILEY (obstructive sleep apnea) Plan 1. PT/OT- WBAT RLE 2. Pain control-prns, AC nerve block 3. IS-encourage 4. DVT proph- Mechs/ASA 5. Bowel regimen 6. Resume home medications as appropriate 7. Monitor post-op labs 8. DC planning for home HTN, Hyperlipidemia - Continue home norvasc, toprol and statin - Monitor BP - Holding parameters for BP meds - Labetalol PRN for SBP>170 MILEY - cpap at night Sonia Edwards APRN 01/09/25 15:47 EDT Cosigned by Levi Howell MD at 01/10/2025 2:10 PM EDT Associated attestation - Levi Howell MD - 01/10/2025 2:10 PM EDT I have reviewed this documentation and agree. * Tanika Padgett PA-C - 01/09/2025 6:58 AM EDT Pre-Op H&P Bianca Berrios [id number] Chief complaint: I am here for a right knee replacement Subjective: Patient is a 69 y.o.female presents for scheduled surgery by Dr. Hood. Patient anticipates a TOTAL KNEE ARTHROPLASTY WITH ERIN ROBOT, RIGHT - Right today. States infection on pinky toe on right side 3 weeks prior with antibiotics given for 7 days. Denies chest pain, shortness of breath, and chest tightness. Denies allergies to latex or contrast dye. Review of Systems: Constitutional-- No fever, chills or sweats. No fatigue. CV-- No chest pain, palpitation or syncope Resp-- No SOB, cough, hemoptysis Skin--No rashes or lesions Allergies: Allergies Allergen Reactions Lunesta [Eszopiclone] Anaphylaxis Home Meds: Medications Prior to Admission Medication Sig Dispense Refill Last Dose/Taking amLODIPine (NORVASC) 5 MG tablet Take 1 tablet by mouth Every Night. 01/08/2025 at 9:00 PM Chlorhexidine Gluconate 4 % solution Shower daily with hibiclens solution as directed 5 days prior to surgery. 236 mL 0 01/08/2025 at 9:00 PM Cholecalciferol (vitamin D3) 125 MCG (5000 UT) tablet tablet Take 1 tablet by mouth Daily. 01/08/2025 at 11:00 AM DULoxetine (CYMBALTA) 60 MG capsule Take 1 capsule by mouth Every Night. 01/08/2025 at 11:00 AM FAMOTIDINE PO Take 40 mg by mouth Every Night. 01/08/2025 at 9:00 PM Gabapentin Enacarbil (HORIZANT PO) Take 1 tablet by mouth Every Evening. 01/08/2025 at 5:00 PM hydroCHLOROthiazide 25 MG tablet Take 1 tablet by mouth Every Night. 01/08/2025 at 9:00 PM levocetirizine (XYZAL) 5 MG tablet Take 1 tablet by mouth Every Evening. 01/08/2025 at 9:00 PM melatonin 5 MG tablet tablet Take 1 tablet by mouth Every Night. 01/08/2025 at 9:00 PM metoprolol succinate XL (TOPROL-XL) 50 MG 24 hr tablet Take 1 tablet by mouth Every Night. 01/08/2025 at 9:00 PM multivitamin with minerals (MULTIVITAMIN ADULTS 50+ PO) Take 1 tablet by mouth Daily. 01/08/2025 at 11:00 AM pantoprazole (PROTONIX) 40 MG EC tablet Take 1 tablet by mouth Daily. 01/08/2025 at 11:00 AM rosuvastatin (CRESTOR) 20 MG tablet Take 1 tablet by mouth Every Night. 01/08/2025 at 9:00 PM vitamin B-6 (PYRIDOXINE) 100 MG tablet Take 1 tablet by mouth Daily. 30 tablet 0 01/08/2025 at 11:00AM Coenzyme Q10 (COQ10 PO) Take 300 mg by mouth Every Night. 01/02/2025 Dietary Management Product (Rheumate) capsule Take 1 capsule by mouth Daily. 90 capsule 2 01/02/2025 estradiol (CLIMARA) 0.05 MG/24HR patch Place 1 patch on the skin as directed by provider 1 (One) Time Per Week. TUESDAY 9:00 PM LORazepam (ATIVAN) 0.5 MG tablet TAKE ONE TABLET BY MOUTH EVERY 4 TO 6 HOURS NEEDED MAY CAUSE DROWSINESS max 3 tablets PER day More than a month Magnesium Chloride (MAGNESIUM DR PO) Take 1 tablet by mouth Every Night. 01/07/2025 at 9:00 PM Probiotic Product (PROBIOTIC ADVANCED PO) Take 1 capsule by mouth Daily. 01/02/2025 PMH: Past Medical History: Diagnosis Date Anxiety Dean esophagus 2017 Bursitis of hip 2023 Cervical disc disorder 1999 Chronic pain disorder 2014 Claustrophobia 1994 Cough CHRONIC Degeneration of lumbar or lumbosacral intervertebral disc 05/20/2017 GERD (gastroesophageal reflux disease) History of esophageal stricture S/P dilation in 05/2013 History of meningioma STABLE Hyperlipidemia 2009 Hypertension 1998 Joint pain 2009 Hands Knee swelling 2022 Lumbar radiculopathy 05/31/2023 Mediastinal adenopathy stable and calcified.CT scan of the chest 04/01/2014 reports mediastinal and hilar adenopathy bilaterally with the largest lymph node measuring 2.3 cm. Findings appear stable over prior studies dating back to nearly 2 years Nausea & vomiting 04/21/2019 Osteoarthritis [address] scan of the chest 04/01/2014 reports a 4 mm noncalcified right upper lobe nodule with dependent atelectatic changes and there is also a small bulla identified in the left lower lobe. The right upper lobe nodule is stable over prior studies. RLS (restless legs syndrome) Sigmoid diverticulum Sleep apnea USES bipap PSH: Past Surgical History: Procedure Laterality Date ABDOMINAL SURGERY 03/16/19 Exploratory surgery related to potential bleed post previous surgery BACK SURGERY Discectomy 2020 BLADDER SUSPENSION COLONOSCOPY 2019 every 5 years ENDOSCOPY ESOPHAGEAL DILATATION Secondary to stricture HYSTERECTOMY 2000 LUMBAR DISCECTOMY Right 12/10/2019 Procedure: LUMBAR DISCECTOMY RIGHT L3-4; Surgeon: Gaston Barnard MD; Location: [facility]; Service: Neurosurgery; Laterality: Right; LUMBAR SYNOVIAL CYST REMOVAL 03/2020 RICCARDO FUNDOPLICATION History of Esophagogastric Fundoplasty Riccardo Fundoplication 2002 SALPINGO OOPHORECTOMY Bilateral SHOULDER ARTHROSCOPY W/ ROTATOR CUFF REPAIR Left 08/24/2022 Procedure: ARTHROSCOPIC ROTATOR CUFF REPAIR WITH LIMITED DEBRIDEMENT- LEFT; Surgeon: Rajesh Engel Jr., MD; Location: [facility]; Service: Orthopedics; Laterality: Left; SPINAL CORD STIMULATOR IMPLANT N/A 06/15/2023 Procedure: THORACIC LAMINOTOMY FOR SPINAL CORD STIMULATOR INSERTION PHASE 1; Surgeon: Gaston Barnard MD; Location: [facility]; Service: Neurosurgery; Laterality: N/A; UPPER GASTROINTESTINAL ENDOSCOPY 03/20/19 Immunization History: Influenza: yes Pneumococcal: yes Tetanus: yes Social History: Tobacco: Social History Tobacco Use Smoking Status Never Smokeless Tobacco Never Alcohol: Social History Substance and Sexual Activity Alcohol Use Yes Alcohol/week: 10.0 standard drinks of alcohol Types: 10 Glasses of wine per week Comment: 1-2 GLASSES OF RED WINE Physical Exam:BP 120/76 (BP Location: Right arm, Patient Position: Lying) Pulse 56 Temp 96.9 ??F (36.1 ??C) (Temporal) Resp 16 Ht 161.3 cm (63.5 ) Wt 72.1 kg (159 lb) SpO2 97% BMI 27.72kg/m?? General Appearance: Alert, cooperative, no distress, appears stated age Head: Normocephalic, without obvious abnormality, atraumatic Lungs: Clear to auscultation bilaterally, respirations unlabored Heart: Regular rate and rhythm, S1 and S2 normal Abdomen: Soft without tenderness Extremities: Extremities normal, atraumatic, no cyanosis or edema Skin: Skin color, texture, turgor normal, no rashes or lesions Neurologic: Grossly intact Results Review: LABS: Lab Results Component Value Date WBC 5.59 12/26/2024 HGB 13.4 12/26/2024 HCT 41.2 12/26/2024 MCV 92.6 12/26/2024 PLT 263 12/26/2024 NEUTROABS 4.08 12/26/2024 GLUCOSE 95 12/26/2024 BUN 15.1 12/26/2024 CREATININE 0.69 12/26/2024 EGFRIFNONA 65 04/30/2019 NA 134 (L) 12/26/2024 K 3.9 01/09/2025 CL 96 (L) 12/26/2024 CO2 27.4 12/26/2024 CALCIUM 9.8 12/26/2024 ALBUMIN 4.4 12/26/2024 AST 31 12/26/2024 ALT 25 12/26/2024 BILITOT 0.3 12/26/2024 RADIOLOGY: Imaging Results (Last 72 Hours) No results found for the last 72 hours. I reviewed the patient's new clinical results. Cancer Staging (if applicable) Cancer Patient: __ yes __no __unknown; If yes, clinical stage T:__ N:__M:__, stage group or __N/A Impression: Primary osteoarthritis of right knee Plan: TOTAL KNEE ARTHROPLASTY WITH ERIN MARY ANN, RIGHT - Right Tanika Padgett PA-C 01/09/2025 06:58 EDT Cosigned by Brenton Hood MD at 01/09/2025 7:03 AM EDT Associated attestation - Brenton Hood MD - 01/09/2025 7:03 AM EDT I have reviewed this documentation and agree. Proceed with right total knee arthroplasty. documented in this encounter Nursing Notes * Nae Marquez, PT - 01/10/2025 10:58 AM EDT Goal Outcome Evaluation: Plan of Care Reviewed With: patient Progress: improving Outcome Evaluation: Pt increased ambulation distance to 300 ft w/ FWW, CGA. No LOB or knee bucklingnoted. Pt would continue to benefit from IP PT services while hospitalized to address deficits in strength, balance, and activity tolerance. Pt is functionally cleared by PT. Recommend d/c home w/ assist and OP PT once medically appropriate. Anticipated Discharge Disposition (PT): home with assist, home with outpatient therapy services * Niurka Ribera, OT - 01/10/2025 9:02 AM EDT Goal Outcome Evaluation: Plan of Care Reviewed With: patient Progress: no change (Initial Eval) Outcome Evaluation: Patient presenting below her functional baseline d/t limitations from R knee pain and ROM deficits. Pt demonstrating good effort w/ ADLs and mobility this date. Deficits warrant skilled OT services. Recommend home w/ assist when medically appropriate for d/c. Anticipated Discharge Disposition (OT): home with assist * Trina Zhang RN - 01/09/2025 4:26 PM EDT Goal Outcome Evaluation: Patient A&Ox4, infu block infusing, managing pain with PRN pain meds, ambulating well with standyby assist and walker, no further needs at this time, anticipates d/c tomorrow. * Raymundo Bustamante PT - 01/09/2025 11:17 AM EDT Goal Outcome Evaluation: Plan of Care Reviewed With: patient, spouse Progress: no change Outcome Evaluation: Pt presents s/p R TKA with decreased functional independence, decreased activity tolerance, and decreased balance compared to baseline. Pt ambulated 125ft with CGA and RW for support +1 for chair follow. Recommend continued skilled IP PT interventions. Recommend D/C home with assist and OPPT services when medically appropriate. Anticipated Discharge Disposition (PT): home with assist, home with outpatient therapy services documented in this encounter OR Notes * Op Note - Brenton Hood MD - 01/09/2025 7:40 AM EDT OPERATIVE REPORT DATE OF PROCEDURE: 01/09/2025 SURGEON: Brenton Hood M.D. TYPE CUTTER(S): Shafting Cleaner: Shilpi Rosario RN Scrub Person: Melany Wade RN Vendor Refrigeration Tech: Benjamin Villalobos Supervisor Blasting: Arturo Thomas PCT Apartment Leasing Specialist: Edenilson Stuart PA-C Orientee: Diya Uribe RN Apartment Leasing Specialist: Edenilson Stuart PA-C Note-PA was utilized during the case to facilitate positioning the patient, exposure, retraction, placement of final components and definitive closure. PREOPERATIVE DIAGNOSIS: Advanced degenerative joint disease of the right knee secondary to osteoarthritis POSTOPERATIVE DIAGNOSIS: same PROCEDURE: Right total Knee Arthroplasty CPT 01299, Use of computer-assisted surgical navigation system CPT 64405, 0055T CT utilization for preoperative planning of robotic total knee arthroplasty SURGICAL DETAILS: APPROACH: Medial parapatellar ANESTHESIA: Spinal plus local periarticular PREOPERATIVE ANTIBIOTICS: Ancef 2 g IV TRANEXAMIC ACID: IV TOURNIQUET TIME: 52 min @2 300 mmHg ESTIMATED BLOOD LOSS: 25 cc SPECIMENS: None IMPLANTS: Datapower Developer/Brand: [employer] triathlon Tibial component size: 2 pressfit tritanium baseplate Femoral component size: 2 pressfit cruciate retaining Tibial polyethylene insert: 9 mm cruciate stabilizing Patellar component: 32 mm asymmetric tritanium Cement: None DRAINS: None LOCAL INJECTION: 1 cc Toradol 30mg/ml, 4 cc duramorph 2mg/ml, 20 cc 0.5% ropivicaine, 20 cc 0.5% lidocaine with 1:200,000 epinephrine, 15 cc preservative free normal saline MODIFIER(S): None COMPLICATIONS: None apparent INDICATIONS FOR PROCEDURE: The patient has a long history of progressive knee pain, arthritis, and degeneration resulting in deformity in the right knee from predominantly medial wear and bone loss. Non-operative treatment and conservative therapeutic measures have been attempted, but have not improved or controlled the symptoms and pain that occurs during normal daily activities. Knee motion hasalso become limited and is restricting the patient. Total knee arthroplasty was recommended. The risks, benefits, alternatives, and potential complications of the arthroplasty surgery were discussed with the patient in detail to include but not be limited to infection, bleeding, anesthesia risks, damage to neurovascular structures, osteolysis, aseptic loosening, instability, anterior knee pain, continued pain, iatrogenic fracture, dislocation, need for future surgery including the potential foramputation, blood clots, myocardial infarction, stroke, and . Specific details of the surgicalprocedure, hospitalization, recovery, rehabilitation, and long-term precautions were also presented. Pre-operative teaching was provided. Implant/prosthesis selection was outlined, and the many options available were explained; the final choice will be made at the time of the procedure to match theanatomy and condition of the bone, ligaments, tendons, and muscles. The patient completed preoperative medical optimization and risk assessment, joint arthroplasty education, and MRSA decolonization using a universal decolonization protocol. Perioperative blood management and the potential for blood transfusion were discussed with risks and options clearly outlined. INTRAOPERATIVE FINDINGS: Advanced tricompartmental osteoarthritis with genu varum alignment PROCEDURE: The patient was identified in the preoperative holding area. The operative site was confirmed and marked. A sequential compression device was placed on the nonoperative leg. The risks, benefits, and alternatives to surgery were again confirmed with the patient and the patient wished to proceed. The patient was brought to the operating room and placed on the operating room table in the supine position. All bony prominences were padded. A huddle was performed with the patient and all vital surgical team members to confirm the correct operative site, procedure, anesthesia type, and operative plan with the patient. After anesthesia was performed, a tourniquet was applied to the upper thigh of the operative leg. A full knee exam was performed once anesthesia was in full effect. Intravenous antibiotic prophylaxis was given and confirmed with the anesthesia team. The operative leg was prepped and draped in the usual sterile fashion. A surgical time out was performed immediately preceding the incision with all personnel in the operating room to confirm patientidentity, the correct operative site and extremity, correct radiographic studies, availability of ap propriate surgical equipment and agreement on the planned procedure. The operative knee was elevated and exsanguinated using an esmarch and the tourniquet was inflated. The knee was exposed using a limited anterior-midline skin incision. Dissection was carried down through skin and subcutaneous tissue to the extensor mechanism with a scalpel. A medial parapatellar arthrotomy was made to enter theknee space sharply. A large amount of normal appearing joint fluid was encountered and suctioned. The synovium was thickened, hypertrophic, and inflamed. A partial synovectomy was performed for exposure, and the medial and lateral gutters were cleared of scar and synovial reflections. The superficial medial collateral ligament was carefully elevated off osteophytes . The patellar synovial reflections were released and the patella exposed to reveal complete wear through the articular surface. The trochlea demonstrated similar severe wear. The patella was then subluxed laterally. The knee was then flexed up to 90 degrees. Assessment of the knee joint revealed severe end-stage articular damage with no remaining medial weight bearing cartilage. The medial compartment was severely eburnated with bone loss on the medial tibia and medial femoral condyle, resulting in the varus deformity. With the exposure complete, femoral pins for navigation were drilled and placed intra-incisional inthe region of the medial distal femoral metaphysis just proximal to the medial epicondyle. Tibial pins for navigation were then placed extra-incisional 4 fingerbreadths below the tibial tubercle taking care to engage the far cortex of the tibia but not perforate the cortex. The navigation arrays were then placed onto the pins, adjusted, and tightened definitively. The femoral and tibial checkpoints were then placed. The knee was then taken through range of motion to find the hip center. The medial and lateral malleolus were then marked to find the ankle center. Next, using a rongeur and osteotome, marginal osteophytes were then removed from the tibia and the femur and the ACL resected. Baseline measurements ofthe knee were then taken and the knee was balanced with adjustments made to varus and valgus on thefemur and tibia as well as femoral rotation. Adjustments were as follows: Femur: 2 degrees valgus, 2.5 degrees external rotation relative to the transepicondylar axis. No translation Tibia: Neutral, 3 degrees posterior slope, 1 mm proximal translation Satisfied with the balance of the knee, attention was turned to bony resection. The tibia was cut first and the tibial bone removed. A tensioner was then placed on the resected surface to tension theknee in both flexion and extension. The adjustments made precut were found to remain grossly unchanged with overall good alignment and balance of the knee in flexion and extension. Next, femoral cuts were made starting with the posterior femoral cuts followed by the anterior femoral cut, followed by the anterior chamfer. The sawblade was then changed and the distal femoral cut and posterior chamfers were completed. A lamina material spreader was placed with the knee in 90 degrees of flexion and a large curved osteotome, rongeur, and curettes were utilized to clear posterior osteophytes. The medial/lateral meniscal remnants were then excised along with any loose bodies. A femoral trial implant was placed; excellent fit was confirmed. The medial- lateral and anterior-posterior dimensions were checked; anatomic fit and coverage were achieved.The proximal tibia baseplate trial was placed with its mid-point at the junction of medial one-third and lateral two-thirds of the tibial tubercle and pinned to this fixed position. A trial reduction was then performed. Trial reduction demonstrated the knee achieved full extension with excellent stability and range of motion,and no tendency toward instability with varus-valgus stress at full extension, mid-flexion, or 90 degrees of flexion. The PCL was also found to be appropriately tensioned with normal posterior tibialexcursion. The tibia and femoral pins and arrays were then removed along with the femoral and tibial checkpoints. Next, attention was turned to the patella. It was measured and the posterior 9- 10 mm was resected leaving a healthy remnant with greater than 11mm thickness. The patella was sized with the asymmetricguide, and drill holes were made. A trial button was placed and tracking of the patella and the entire knee trial was tested. The patella tracking was excellent throughout range of motion with no instability. Punches and drills were then placed through the trials to accommodate the final implants. All trials were removed. The wound was copiously lavaged with a pulse irrigation/suction system. The posterior recess of theknee and areas of known bleeding were treated with the electrocautery to reduce post-operative bleeding. A pain cocktail was injected into the bambi-articular tissues. The cut bone surfaces were then irrigated again, suctioned, and dried. The final implants were impacted into place, tibia followed by tibial polyethylene followed by femur followed by patella. The tourniquet was released and no excessive bleeding was encountered. Synovial bleeding was further treated with the electrocautery until adequate hemostasis was obtained. The wound was again irrigated with dilute betadine solution followed by saline. The extensor mechanism and capsule was then anatomically closed with interrupted #1 Vicryl suture and a running #2 Stratafix stitch. Knee stability and range of motion with the capsule closed was excellent, and range ofmotion was 0 to 135 degrees without excessive stress on the repair. Instrument and sponge count was completed and confirmed correct. Deep and superficial subcutaneous tissue was closed with interrupted 2-0 Vicryl suture. A running 3-0 Monocryl subcuticular stitch was used to re-approximate the skinedges followed by skin glue adhesive to seal the wound. A silver impregnated dressing was then placed over the knee incision and a Covaderm over the tibial pin incisions, followed by a sequential compression device to the operative limb. The patient was sufficiently recovered from anesthesia, transferred to a hospital bed and taken to the PACU in stable condition. One gram (1000 mg) of intravenous tranexamic acid was administered prior to incision. A second one gram (1000 mg) intravenous dose was given prior to wound closure. No apparent complications occurred during the procedure. Instrument, sponge and needle counts were correct x 2. The patient underwent risk stratification preoperatively and aspirin was chosen for DVT prophylaxis. Delay in starting chemical prophylaxis for 23 hours from surgical incision was over concerns for hematoma formation and wound related issues. POST OPERATIVE PLAN: Weight bearing as tolerated with knee range of motion as tolerated Pain control with PO/IV meds Adductor canal catheter placement by Anesthesia Pain Management Team in PACU. 23 hours perioperative antibiotic prophylaxis PT/OT for mobilization and medical equipment needs Keep silver dressing in place for 7 days post op. Change dressing only if saturated. SCDs to bilateral lower extremities Social work for discharge planning needs Follow up in 3 weeks for post operative wound check with 3 views of operative knee. * Brief Op Note - Brenton Hood MD - 01/09/2025 7:40 AM EDT TOTAL KNEE ARTHROPLASTY WITH ERIN ROBOT Progress Note Bianca Berrios 01/09/2025 Pre-op Diagnosis: Primary osteoarthritis of right knee [M17.11] Post-Op Diagnosis Codes: * Primary osteoarthritis of right knee [M17.11] Procedure(s): Procedure(s): TOTAL KNEE ARTHROPLASTY WITH ERIN ROBOT, RIGHT Surgical Approach: Knee Medial Parapatellar Surgeon(s): Brenton Hood MD Anesthesia: Spinal Staff: Shafting Cleaner: Shilpi Rosario RN Scrub Person: Melany Wade RN Vendor Refrigeration Tech: Benjamin Villalobos Supervisor Blasting: Arturo Thomas PCT Apartment Leasing Specialist: Edenilson Stuart PA-C Orientee: Diya Uribe RN Apartment Leasing Specialist: Edenilson Stuart PA-C Estimated Blood Loss: 25 mL Urine Voided: * No values recorded between 01/09/2025 7:19 AM and 01/09/2025 8:38 AM * Specimens: None Drains: * No LDAs found * Findings: Advanced tricompartmental osteoarthritis with genu varum alignment Complications: None apparent Apartment Leasing Specialist: Edenilson Stuart PA-C was responsible for performing the following activities: Retraction, Suction, Irrigation, Suturing,Closing, and Placing Dressing and their skilled assistance was necessary for the success of this case. Brenton Hood MD Date: 01/09/2025 Time: 09:00 EDT documented in this encounter Miscellaneous Notes * Therapy Treatment Note - Nae Marquez, PT - 01/10/2025 10:58 AM EDT Images from the original note were not included. Patient Name: Bianca Berrios : 1955 Today's Date: 01/10/2025 Admit Date: 01/09/2025 Visit Dx: ICD-10-CM ICD-9-CM 1. S/P TKR (total knee replacement), right Z96.651 V43.65 2. Primary osteoarthritis of right knee M17.11 715.16 Patient Active Problem List Diagnosis Cough GERD (gastroesophageal reflux disease) HTN (hypertension) LAD (lymphadenopathy), mediastinal Benign meningioma Gastroesophageal reflux disease without esophagitis Dysphagia Esophageal dysmotility Scoliosis (and kyphoscoliosis), idiopathic Acquired spondylolisthesis Synovial cyst Degeneration of lumbar or lumbosacral intervertebral disc Synovial cyst of lumbar facet joint Lumbar stenosis with neurogenic claudication Spondylosis of lumbar region without myelopathy or radiculopathy Accelerated hypertension S/P BSO (bilateral salpingo-oophorectomy) Nausea & vomiting HNP (herniated nucleus pulposus), lumbar Nontraumatic complete tear of left rotator cuff Hyperlipidemia MILEY (obstructive sleep apnea) S/P left rotator cuff repair, 08/24/22 Postoperative urinary retention Acute postoperative pain Greater trochanteric bursitis of right hip Lumbar postlaminectomy syndrome Iliotibial band syndrome of right side Gait disturbance Physical deconditioning Lumbar radiculopathy Lumbar radiculopathy, right Greater trochanteric bursitis of both hips Bilateral hip pain Presence of neurostimulator Encounter for fitting and adjustment of neuropacemaker of spinal cord Arthritis of knee Status post total right knee replacement Past Medical History: Diagnosis Date Anxiety Dean esophagus 2018 Bursitis of hip 2023 Cervical disc disorder 1999 Chronic pain disorder 2014 Claustrophobia 1994 Cough CHRONIC Degeneration of lumbar or lumbosacral intervertebral disc 05/20/2017 GERD (gastroesophageal reflux disease) History of esophageal stricture S/P dilation in 05/2013 History of meningioma STABLE Hyperlipidemia 2009 Hypertension 1997 Joint pain 2009 Hands Knee swelling 2022 Lumbar radiculopathy 05/31/2023 Mediastinal adenopathy stable and calcified.CT scan of the chest 04/01/2014 reports mediastinal and hilar adenopathy bilaterally with the largest lymph node measuring 2.3 cm. Findings appear stable over prior studies dating back to nearly 2 years Nausea & vomiting 04/21/2019 Osteoarthritis [address] scan of the chest 04/01/2014 reports a 4 mm noncalcified right upper lobe nodule with dependent atelectatic changes and there is also a small bulla identified in the left lower lobe. The right upper lobe nodule is stable over prior studies. RLS (restless legs syndrome) Sigmoid diverticulum Sleep apnea USES bipap Past Surgical History: Procedure Laterality Date ABDOMINAL SURGERY 03/16/19 Exploratory surgery related to potential bleed post previous surgery BACK SURGERY Discectomy 2020 BLADDER SUSPENSION COLONOSCOPY 2019 every 5 years ENDOSCOPY ESOPHAGEAL DILATATION Secondary to stricture HYSTERECTOMY 2000 LUMBAR DISCECTOMY Right 12/10/2019 Procedure: LUMBAR DISCECTOMY RIGHT L3-4; Surgeon: Gaston Barnard MD; Location: [facility]; Service: Neurosurgery; Laterality: Right; LUMBAR SYNOVIAL CYST REMOVAL 03/2020 RICCARDO FUNDOPLICATION History of Esophagogastric Fundoplasty Riccardo Fundoplication 2002 SALPINGO OOPHORECTOMY Bilateral SHOULDER ARTHROSCOPY W/ ROTATOR CUFF REPAIR Left 08/24/2022 Procedure: ARTHROSCOPIC ROTATOR CUFF REPAIR WITH LIMITED DEBRIDEMENT- LEFT; Surgeon: Rajesh Engel Jr., MD; Location: [facility]; Service: Orthopedics; Laterality: Left; SPINAL CORD STIMULATOR IMPLANT N/A 06/15/2023 Procedure: THORACIC LAMINOTOMY FOR SPINAL CORD STIMULATOR INSERTION PHASE 1; Surgeon: Gaston Barnard MD; Location: [facility]; Service: Neurosurgery; Laterality: N/A; TOTAL KNEE ARTHROPLASTY Right 01/09/2025 Procedure: TOTAL KNEE ARTHROPLASTY WITH ERIN ROBOT; Surgeon: Brenton Hood MD; Location: [facility]; Service: Robotics - Ortho; Laterality: Right; UPPER GASTROINTESTINAL ENDOSCOPY 03/20/19 General Information Row Name 01/10/25 1134 Physical Therapy Time and Intention Document Type therapy note (daily note) - Mode of Treatment physical therapy;individual therapy - Row Name 01/10/25 1134 General Information Patient Profile Reviewed yes - Existing Precautions/Restrictions fall;other (see comments) R TKA, WBAT; adductor canal nerve cath - Barriers to Rehab medically complex - Row Name 01/10/25 1134 Cognition Orientation Status (Cognition) oriented x 3 - Row Name 01/10/25 1134 Safety Issues/Impairments Affecting Functional Mobility Safety Issues Affecting Function (Mobility) insight into deficits/self- awareness;safety precaution awareness;safety precautions follow- through/compliance - Impairments Affecting Function (Mobility) endurance/activity tolerance;pain;strength - User Goins (r) = Recorded By, (t) = Taken By, (c) = Cosigned By Initials Name Provider Type Nae Marquez, PT Physical Therapist Mobility Row Name 01/10/25 1135 Bed Mobility Comment, (Bed Mobility) [facility] pre/post tx -[facility] Name 01/10/25 1135 Transfers Comment, (Transfers) VCs for hand placement and sequencing. Cues to step out RLE prior to transfersfor comfort - Row Name 01/10/25 1135 Sit-Stand Transfer Sit-Stand Marked Tree (Transfers) contact guard;verbal cues - Assistive Device (Sit-Stand Transfers) walker, front-wheeled -[facility] Name 01/10/25 1135 Gait/Stairs (Locomotion) Marked Tree Level (Gait) contact guard;verbal cues - Assistive Device (Gait) walker, front-wheeled - Patient was able to Ambulate yes - Distance in Feet (Gait) 300 - Deviations/Abnormal Patterns (Gait) bilateral deviations;jeffy decreased;gait speed decreased;stride length decreased;weight shifting decreased - Bilateral Gait Deviations heel strike decreased;forward flexed posture - Right Sided Gait Deviations weight shift ability decreased - Comment, (Gait/Stairs) Pt demo step through gait pattern w/ decreased step length and decreased jeffy. VCs for upright posture and AD management. No LOB or knee buckling noted. Distance limited by fatigue - User Goins (r) = Recorded By, (t) = Taken By, (c) = Cosigned By Initials Name Provider Type Nae Marquez PT Physical Therapist Obj/Interventions [facility] Name 01/10/25 113 Range of Motion Comprehensive General Range of Motion lower extremity range of motion deficits identified - Comment, General Range of Motion R knee AROM: 7-70 -[facility] Name 01/10/25 113 Strength Comprehensive (MMT) General Manual Muscle Testing (MMT) Assessment lower extremity strength deficits identified -[facility] Name 01/10/25 113 Motor Skills Therapeutic Exercise knee;ankle -[facility] Name 01/10/25 113 Knee (Therapeutic Exercise) Knee (Therapeutic Exercise) isometric exercises;strengthening exercise - Knee Isometrics (Therapeutic Exercise) right;quad sets;10 repetitions - Knee Strengthening (Therapeutic Exercise) right;heel slides;SLR (straight leg raise);SAQ (short arcquad);LAQ (long arc quad);10 repetitions -[facility] 01/10/25 113 Ankle (Therapeutic Exercise) Ankle (Therapeutic Exercise) AROM (active range of motion) - Ankle AROM (Therapeutic Exercise) bilateral;dorsiflexion;plantarflexion;10 repetitions -[facility] 01/10/25 113 Balance Balance Assessment sitting static balance;sitting dynamic balance;standing static balance;standing dynamic balance - Static Sitting Balance supervision - Dynamic Sitting Balance standby assist - Position, Sitting Balance unsupported;sitting in chair - Static Standing Balance standby assist - Dynamic Standing Balance contact guard;verbal cues - Position/Device Used, Standing Balance supported;walker, front-wheeled - Balance Interventions sitting;standing;sit to stand;occupation based/functional task - User Goins (r) = Recorded By, (t) = Taken By, (c) = Cosigned By Initials Name Provider Type Nae Marquez PT Physical Therapist Goals/Plan No documentation. Clinical Impression [facility] Name 01/10/25 1138 Pain Pretreatment Pain Rating 4/10 - Posttreatment Pain Rating 3/10 - Pain Location knee - Pain Side/Orientation right;posterior - Pain Management Interventions activity modification encouraged;exercise or physical activity utilized;positioning techniques utilized;cold applied - Response to Pain Interventions activity level improved;functional ability improved;activity participation with decreased pain -LH Row Name 01/10/25 1138 Plan of Care Review Plan of Care Reviewed With patient - Progress improving - Outcome Evaluation Pt increased ambulation distance to 300 ft w/ FWW, CGA. No LOB or knee buckling noted. Pt would continue to benefit from IP PT services while hospitalized to address deficits in strength, balance, and activity tolerance. Pt is functionally cleared by PT. Recommend d/c home w/ assist and OP PT once medically appropriate. -[facility] Name 01/10/25 1138 Therapy Assessment/Plan (PT) Therapy Frequency (PT) 2 times/day -[facility] Name 01/10/25 1138 Positioning and Restraints Pre-Treatment Position sitting in chair/recliner - Post Treatment Position chair -LH In Chair notified nsg;reclined;sitting;call light within reach;encouraged to call for assist;exit alarm on;waffle cushion;legs elevated - User Goins (r) = Recorded By, (t) = Taken By, (c) = Cosigned By Initials Name Provider Type Nae Marquez, PT Physical Therapist Outcome Measures Row Name 01/10/25 1140 How much help from another person do you currently need... Turning from your back to your side while in flat bed without using bedrails? 3 -LH Moving from lying on back to sitting on the side of a flat bed without bedrails? 3 -LH Moving to and from a bed to a chair (including a wheelchair)? 3 -LH Standing up from a chair using your arms (e.g., wheelchair, bedside chair)? 3 -LH Climbing 3-5 steps with a railing? 3 -LH To walk in hospital room? 3 - AM-PAC 6 Clicks Score (PT) 18 - Highest Level of Mobility Goal Walk 10 Steps or More-6 - Row Name 01/10/25 1140 01/10/25 1013 Functional Assessment Outcome Measure Options AM-PAC 6 Clicks Basic Mobility (PT) - AM-PAC 6 Clicks Daily Activity (OT)- User Goins (r) = Recorded By, (t) = Taken By, (c) = Cosigned By Initials Name Provider Type Niurka Green, OT Occupational Therapist Nae Marquez, PT Physical Therapist Physical Therapy Education Title: PT OT DOLL [employer] [facility]ACKL[facility] Therapies (Done) Topic: Physical Therapy (Done) Point: Mobility training (Done) Learning Progress Summary Patient Acceptance, E, VU,DU by at 01/10/2025 1140 Point: Home exercise program (Done) Learning Progress Summary Patient Acceptance, E, VU,DU by at 01/10/2025 1140 Point: Body mechanics (Done) Learning Progress Summary Patient Acceptance, E, VU,DU by at 01/10/2025 1140 Point: Precautions (Done) Learning Progress Summary Patient Acceptance, E, VU,DU by at 01/10/2025 1140 User Goins Initials Effective Dates Name Provider Type Discipline 03/03/23 - Nae Marquez, PT Physical Therapist PT PT Recommendation and Plan Progress: improving Outcome Evaluation: Pt increased ambulation distance to 300 ft w/ FWW, CGA. No LOB or knee bucklingnoted. Pt would continue to benefit from IP PT services while hospitalized to address deficits in strength, balance, and activity tolerance. Pt is functionally cleared by PT. Recommend d/c home w/ assist and OP PT once medically appropriate. Time Calculation: PT Charges Row Name 01/10/25 1140 Time Calculation Start Time 1058 - PT Received On 01/10/25 - PT Goal Re-Cert Due Date 01/19/25 - Timed Charges 38981 - PT Therapeutic Exercise Minutes 13 - 12658 - Gait Training Minutes 15 - Total Minutes Timed Charges Total Minutes 28 - Total Minutes 28 - User Goins (r) = Recorded By, (t) = Taken By, (c) = Cosigned By Initials Name Provider Type Nae Marquez, PT Physical Therapist Therapy Charges for Today Code Description Service Date Service Provider Modifiers Qty [id number] HC PT THER PROC EA 15 MIN 01/10/2025 Nae Marquez, PT GP 1 [id number] HC GAIT TRAINING EA 15 MIN 01/10/2025 Nae Marquez, PT GP 1 PT G-Codes Outcome Measure Options: AM-PAC 6 Clicks Basic Mobility (PT) AM-PAC 6 Clicks Score (PT): 18 AM-PAC 6 Clicks Score (OT): 21 PT Discharge Summary Anticipated Discharge Disposition (PT): home with assist, home with outpatient therapy services Nae Marquez PT 01/10/2025 * Therapy Evaluation - Niurka Ribera, OT - 01/10/2025 9:02 AM EDT Images from the original note were not included. Patient Name: Bianca Berrios : 1955 Today's Date: 01/10/2025 Admit Date: 01/09/2025 Visit Dx: ICD-10-CM ICD-9-CM 1. S/P TKR (total knee replacement), right Z96.651 V43.65 2. Primary osteoarthritis of right knee M17.11 715.16 Patient Active Problem List Diagnosis Cough GERD (gastroesophageal reflux disease) HTN (hypertension) LAD (lymphadenopathy), mediastinal Benign meningioma Gastroesophageal reflux disease without esophagitis Dysphagia Esophageal dysmotility Scoliosis (and kyphoscoliosis), idiopathic Acquired spondylolisthesis Synovial cyst Degeneration of lumbar or lumbosacral intervertebral disc Synovial cyst of lumbar facet joint Lumbar stenosis with neurogenic claudication Spondylosis of lumbar region without myelopathy or radiculopathy Accelerated hypertension S/P BSO (bilateral salpingo-oophorectomy) Nausea & vomiting HNP (herniated nucleus pulposus), lumbar Nontraumatic complete tear of left rotator cuff Hyperlipidemia MILEY (obstructive sleep apnea) S/P left rotator cuff repair, 08/24/22 Postoperative urinary retention Acute postoperative pain Greater trochanteric bursitis of right hip Lumbar postlaminectomy syndrome Iliotibial band syndrome of right side Gait disturbance Physical deconditioning Lumbar radiculopathy Lumbar radiculopathy, right Greater trochanteric bursitis of both hips Bilateral hip pain Presence of neurostimulator Encounter for fitting and adjustment of neuropacemaker of spinal cord Arthritis of knee Status post total right knee replacement Past Medical History: Diagnosis Date Anxiety Dean esophagus 2018 Bursitis of hip 2023 Cervical disc disorder 1999 Chronic pain disorder 2014 Claustrophobia 1994 Cough CHRONIC Degeneration of lumbar or lumbosacral intervertebral disc 05/20/2017 GERD (gastroesophageal reflux disease) History of esophageal stricture S/P dilation in 05/2013 History of meningioma STABLE Hyperlipidemia 2009 Hypertension 1998 Joint pain 2010 Hands Knee swelling 2022 Lumbar radiculopathy 05/31/2023 Mediastinal adenopathy stable and calcified.CT scan of the chest 04/01/2014 reports mediastinal and hilar adenopathy bilaterally with the largest lymph node measuring 2.3 cm. Findings appear stable over prior studies dating back to nearly 2 years Nausea & vomiting 04/21/2019 Osteoarthritis [address] scan of the chest 04/01/2014 reports a 4 mm noncalcified right upper lobe nodule with dependent atelectatic changes and there is also a small bulla identified in the left lower lobe. The right upper lobe nodule is stable over prior studies. RLS (restless legs syndrome) Sigmoid diverticulum Sleep apnea USES bipap Past Surgical History: Procedure Laterality Date ABDOMINAL SURGERY 03/16/19 Exploratory surgery related to potential bleed post previous surgery BACK SURGERY Discectomy 2020 BLADDER SUSPENSION COLONOSCOPY 2018 every 5 years ENDOSCOPY ESOPHAGEAL DILATATION Secondary to stricture HYSTERECTOMY 2000 LUMBAR DISCECTOMY Right 12/10/2019 Procedure: LUMBAR DISCECTOMY RIGHT L3-4; Surgeon: Gaston Barnard MD; Location: [facility]; Service: Neurosurgery; Laterality: Right; LUMBAR SYNOVIAL CYST REMOVAL 03/2020 RICCARDO FUNDOPLICATION History of Esophagogastric Fundoplasty Riccardo Fundoplication 2001 SALPINGO OOPHORECTOMY Bilateral SHOULDER ARTHROSCOPY W/ ROTATOR CUFF REPAIR Left 08/24/2022 Procedure: ARTHROSCOPIC ROTATOR CUFF REPAIR WITH LIMITED DEBRIDEMENT- LEFT; Surgeon: Rajesh Engel Jr., MD; Location: [facility]; Service: Orthopedics; Laterality: Left; SPINAL CORD STIMULATOR IMPLANT N/A 06/15/2023 Procedure: THORACIC LAMINOTOMY FOR SPINAL CORD STIMULATOR INSERTION PHASE 1; Surgeon: Gaston Barnard MD; Location: [facility]; Service: Neurosurgery; Laterality: N/A; TOTAL KNEE ARTHROPLASTY Right 01/09/2025 Procedure: TOTAL KNEE ARTHROPLASTY WITH ERIN ROBOT; Surgeon: Brenton Hood MD; Location: [facility]; Service: Robotics - Ortho; Laterality: Right; UPPER GASTROINTESTINAL ENDOSCOPY 03/20/19 General Information Row Name 01/10/25 1002 OT Time and Intention Document Type evaluation -MR Mode of Treatment occupational therapy -MR Row Name 01/10/25 1002 General Information Patient Profile Reviewed yes -MR Prior Level of Function independent:;all household mobility;gait;transfer;bed mobility;dressing;bathing Has a RW -MR Existing Precautions/Restrictions fall;other (see comments) R TKA, WBAT; adductor canal nerve cath -MR Barriers to Rehab medically complex -MR Row Name 01/10/25 1002 Living Environment Current Living Arrangements home -MR People in Home spouse -MR Row Name 01/10/25 1002 Home Main Entrance Number of Stairs, Main Entrance other (see comments) ramp to enter -MR Stair Railings, Main Entrance none -MR Row Name 01/10/25 1002 Stairs Within Home, Primary Number of Stairs, Within Home, Primary none -MR Stair Railings, Within Home, Primary none -MR Row Name 01/10/25 1002 Cognition Orientation Status (Cognition) oriented x 3 -MR Row Name 01/10/25 1002 Safety Issues/Impairments Affecting Functional Mobility Safety Issues Affecting Function (Mobility) sequencing abilities;safety precaution awareness -MR Impairments Affecting Function (Mobility) endurance/activity tolerance;pain;strength -MR User Goins (r) = Recorded By, (t) = Taken By, (c) = Cosigned By Initials Name Provider Type MR Ribera Niurka OT Occupational Therapist Mobility/ADL's Row Name 01/10/25 100 Bed Mobility Comment, (Bed Mobility) Pt received up in bathroom. -MR Row Name 01/10/25 100 Transfers Transfers sit-stand transfer;toilet transfer -MR Row Name 01/10/25 100 Sit-Stand Transfer Sit-Stand Marked Tree (Transfers) contact guard;verbal cues;nonverbal cues (demo/gesture) -MR Assistive Device (Sit-Stand Transfers) walker, front-wheeled - Row Name 01/10/25 100 Toilet Transfer Type (Toilet Transfer) sit-stand;stand-sit -MR Marked Tree Level (Toilet Transfer) contact guard -MR Assistive Device (Toilet Transfer) commode;walker, front-wheeled -MR Row Name 01/10/25 100 Functional Mobility Functional Mobility- Ind. Level supervision required -MR Functional Mobility- Device walker, front-wheeled -MR Functional Mobility-Distance (Feet) -- > HH distances -MR Row Name 01/10/25 100 Activities of Daily Living BADL Assessment/Intervention lower body dressing;toileting;grooming;bathing -MR Row Name 01/10/25 100 Lower Body Dressing Assessment/Training Marked Tree Level (Lower Body Dressing) lower body dressing skills -MR Comment, (Lower Body Dressing) Patient educated on sequencing for LB dressing and nerve cath management to prevent accidental dislodgement. -MR Row Name 01/10/25 1004 Toileting Assessment/Training Marked Tree Level (Toileting) adjust/manage clothing;perform perineal hygiene;supervision -MR Assistive Devices (Toileting) commode -MR Position (Toileting) unsupported sitting;unsupported standing -MR Row Name 01/10/25 1004 Grooming Assessment/Training Marked Tree Level (Grooming) wash face, hands;oral care regimen;supervision -MR Position (Grooming) unsupported standing -MR Row Name 01/10/25 1004 Bathing Assessment/Intervention Marked Tree Level (Bathing) bathing skills -MR Comment, (Bathing) Patient educated on bathing and waiting until nerve cath has been discontinued and once cleared by surgeon. -MR User Goins (r) = Recorded By, (t) = Taken By, (c) = Cosigned By Initials Name Provider Type Niurka Ribera OT Occupational Therapist Obj/Interventions Row Name 01/10/25 1007 Sensory Assessment (Somatosensory) Sensory Assessment (Somatosensory) UE sensation intact -MR Row Name 01/10/25 1007 Vision Assessment/Intervention Visual Impairment/Limitations WFL;corrective lenses full-time -MR Row Name 01/10/25 1007 Range of Motion Comprehensive General Range of Motion bilateral upper extremity ROM WFL -MR Row Name 01/10/25 1007 Strength Comprehensive (MMT) Comment, General Manual Muscle Testing (MMT) Assessment BUE grossly 4/5 in all functional planes. -MR Row Name 01/10/25 1007 Balance Balance Assessment sitting static balance;sitting dynamic balance;standing static balance;standing dynamic balance -MR Static Sitting Balance standby assist -MR Dynamic Sitting Balance standby assist -MR Position, Sitting Balance unsupported;sitting edge of bed -MR Static Standing Balance contact guard -MR Dynamic Standing Balance contact guard -MR Position/Device Used, Standing Balance supported;walker, front-wheeled -MR Balance Interventions sitting;standing;sit to stand;static;supported;dynamic;occupation based/functional task -MR User Goins (r) = Recorded By, (t) = Taken By, (c) = Cosigned By Initials Name Provider Type Niurka Ribera OT Occupational Therapist Goals/Plan Row Name 01/10/25 1012 Bed Mobility Goal 1 (OT) Activity/Assistive Device (Bed Mobility Goal 1, OT) sit to supine;supine to sit -MR Marked Tree Level/Cues Needed (Bed Mobility Goal 1, OT) standby assist -MR Time Frame (Bed Mobility Goal 1, OT) short term goal (STG);3 days -MR Progress/Outcomes (Bed Mobility Goal 1, OT) new goal -MR Row Name 01/10/25 1012 Dressing Goal 1 (OT) Activity/Device (Dressing Goal 1, OT) lower body dressing -MR Marked Tree/Cues Needed (Dressing Goal 1, OT) minimum assist (75% or more patient effort) -MR Time Frame (Dressing Goal 1, OT) retirement goal (LTG);5 days -MR Progress/Outcome (Dressing Goal 1, OT) new goal -MR Row Name 01/10/25 1012 Grooming Goal 1 (OT) Activity/Device (Grooming Goal 1, OT) grooming skills, all -MR Marked Tree (Grooming Goal 1, OT) independent -MR Time Frame (Grooming Goal 1, OT) ferry terminal agent goal (LTG);5 days -MR Strategies/Barriers (Grooming Goal 1, OT) sink side -MR Progress/Outcome (Grooming Goal 1, OT) new goal -MR Row Name 01/10/25 1012 Therapy Assessment/Plan (OT) Planned Therapy Interventions (OT) activity tolerance training;adaptive equipment training;BADL retraining;functional balance retraining;transfer/mobility retraining;strengthening exercise;ROM/therapeutic exercise;patient/caregiver education/training;passive ROM/stretching;IADL retraining;occupation/activity based interventions -MR User Goins (r) = Recorded By, (t) = Taken By, (c) = Cosigned By Initials Name Provider Type MR Niurka Ribera, OT Occupational Therapist Clinical Impression Row Name 01/10/25 1007 Pain Assessment Pretreatment Pain Rating 2/10 -MR Posttreatment Pain Rating 2/10 -MR Pain Location knee -MR Pain Side/Orientation generalized -MR Row Name 01/10/25 1007 Plan of Care Review Plan of Care Reviewed With patient -MR Progress no change Initial Eval -MR Outcome Evaluation Patient presenting below her functional baseline d/t limitations from R knee pain and ROM deficits. Pt demonstrating good effort w/ ADLs and mobility this date. Deficits warrant skilled OT services. Recommend home w/ assist when medically appropriate for d/c. -MR Row Name 01/10/25 1007 Therapy Assessment/Plan (OT) Patient/Family Therapy Goal Statement (OT) Return to PLOF -MR Rehab Potential (OT) good -MR Criteria for Skilled Therapeutic Interventions Met (OT) yes;meets criteria;skilled treatment is necessary -MR Therapy Frequency (OT) daily -MR Predicted Duration of Therapy Intervention (OT) 5 days -MR Row Name 01/10/25 1007 Therapy Plan Review/Discharge Plan (OT) Anticipated Discharge Disposition (OT) home with assist -MR Row Name 01/10/25 1007 Vital Signs O2 Delivery Pre Treatment room air -MR O2 Delivery Intra Treatment room air -MR O2 Delivery Post Treatment room air -MR Pre Patient Position Sitting -MR Intra Patient Position Standing -MR Post Patient Position Sitting -MR Row Name 01/10/25 1007 Positioning and Restraints Pre-Treatment Position bathroom -MR Post Treatment Position chair -MR In Chair notified nsg;reclined;sitting;call light within reach;encouraged to call for assist;exit alarm on;waffle cushion;legs elevated;compression device -MR User Goins (r) = Recorded By, (t) = Taken By, (c) = Cosigned By Initials Name Provider Type Niurka Green OT Occupational Therapist Outcome Measures Row Name 01/10/25 1013 How much help from another is currently needed... Putting on and taking off regular lower body clothing? 3 -MR Bathing (including washing, rinsing, and drying) 3 -MR Toileting (which includes using toilet bed garcia or urinal) 3 -MR Putting on and taking off regular upper body clothing 4 -MR Taking care of personal grooming (such as brushing teeth) 4 -MR Eating meals 4 -MR AM-PAC 6 Clicks Score (OT) 21 -MR Row Name 01/10/25 1013 Functional Assessment Outcome Measure Options AM-PAC 6 Clicks Daily Activity (OT) -MR User Goins (r) = Recorded By, (t) = Taken By, (c) = Cosigned By Initials Name Provider Type Niurka Green OT Occupational Therapist Occupational Therapy Education Title: PT OT [facility] [facility] Therapies (In Progress) Topic: Occupational Therapy (Done) Point: ADL training (Done) Learning Progress Summary Patient Acceptance, E, VU by MR at 01/10/2025 1013 Point: Home exercise program (Done) Learning Progress Summary Patient Acceptance, E, VU by MR at 01/10/2025 1013 Point: Precautions (Done) Learning Progress Summary Patient Acceptance, E, VU by MR at 01/10/2025 1013 Point: Body mechanics (Done) Learning Progress Summary Patient Acceptance, E, VU by MR at 01/10/2025 1013 User Goins Initials Effective Dates Name Provider Type Discipline MR 03/04/22 - Niurka Ribera OT Occupational Therapist OT OT Recommendation and Plan Planned Therapy Interventions (OT): activity tolerance training, adaptive equipment training, BADL retraining, functional balance retraining, transfer/mobility retraining, strengthening exercise, ROM/therapeutic exercise, patient/caregiver education/training, passive ROM/stretching, IADL retraining, occupation/activity based interventions Therapy Frequency (OT): daily Plan of Care Review Plan of Care Reviewed With: patient Progress: no change (Initial Eval) Outcome Evaluation: Patient presenting below her functional baseline d/t limitations from R knee pain and ROM deficits. Pt demonstrating good effort w/ ADLs and mobility this date. Deficits warrant skilled OT services. Recommend home w/ assist when medically appropriate for d/c. Time Calculation: Evaluation Complexity (OT) Review Occupational Profile/Medical/Therapy History Complexity: brief/low complexity Assessment, Occupational Performance/Identification of Deficit Complexity: 1-3 performance deficits Clinical Decision Making Complexity (OT): problem focused assessment/low complexity Overall Complexity of Evaluation (OT): low complexity Time Calculation- OT Row Name 01/10/25 1014 Time Calculation- OT OT Start Time 901 -MR OT Received On 01/10/25 -MR OT Goal Re-Cert Due Date 01/20/25 -MR Untimed Charges OT Eval/Re-eval Minutes 61 -MR Total Minutes Untimed Charges Total Minutes 61 -MR Total Minutes 61 -MR User Goins (r) = Recorded By, (t) = Taken By, (c) = Cosigned By Initials Name Provider Type MR Niurka Ribera OT Occupational Therapist Therapy Charges for Today Code Description Service Date Service Provider Modifiers Qty [id number] HC-OT EVAL LOW COMPLEXITY 5 01/10/2025 Niurka Ribera OT 1 Niurka Ribera OT 01/10/2025 * Case Management/Social Work - Ailyn Richards RN - 01/09/2025 11:56 AM EDT Continued Stay Note [facility] Patient Name: Bianca Berrios Today's Date: 01/09/2025 Admit Date: 01/09/2025 Plan: home with outpt PT Discharge Plan Row Name 01/09/25 1155 Plan Plan home with outpt PT Patient/Family in Agreement with Plan yes Plan Comments Pt lives in [facility] with her . She was independent with ADLs and mobility prior to admit. She owns a rolling walker. Pt is followed by her PCP and has drug coverage. At this time her plan for discharge is to return home. She has an appointment with [facility] foroutpt PT on 01/11. No other dc needs at this time Final Discharge Disposition Code 01 - home or self-care Discharge Codes No documentation. Ailyn Richards RN * Therapy Evaluation - Raymundo Bustamante PT - 01/09/2025 11:17 AM EDT Images from the original note were not included. Patient Name: Bianca Berrios : 1955 Today's Date: 01/09/2025 Admit Date: 01/09/2025 Visit Dx: ICD-10-CM ICD-9-CM 1. S/P TKR (total knee replacement), right Z96.651 V43.65 2. Primary osteoarthritis of right knee M17.11 715.16 Patient Active Problem List Diagnosis Cough GERD (gastroesophageal reflux disease) HTN (hypertension) LAD (lymphadenopathy), mediastinal Benign meningioma Gastroesophageal reflux disease without esophagitis Dysphagia Esophageal dysmotility Scoliosis (and kyphoscoliosis), idiopathic Acquired spondylolisthesis Synovial cyst Degeneration of lumbar or lumbosacral intervertebral disc Synovial cyst of lumbar facet joint Lumbar stenosis with neurogenic claudication Spondylosis of lumbar region without myelopathy or radiculopathy Accelerated hypertension S/P BSO (bilateral salpingo-oophorectomy) Nausea & vomiting HNP (herniated nucleus pulposus), lumbar Nontraumatic complete tear of left rotator cuff Hyperlipidemia MILEY (obstructive sleep apnea) S/P left rotator cuff repair, 08/24/22 Postoperative urinary retention Acute postoperative pain Greater trochanteric bursitis of right hip Lumbar postlaminectomy syndrome Iliotibial band syndrome of right side Gait disturbance Physical deconditioning Lumbar radiculopathy Lumbar radiculopathy, right Greater trochanteric bursitis of both hips Bilateral hip pain Presence of neurostimulator Encounter for fitting and adjustment of neuropacemaker of spinal cord Arthritis of knee Past Medical History: Diagnosis Date Anxiety Dean esophagus 2018 Bursitis of hip 2023 Cervical disc disorder 1999 Chronic pain disorder 2014 Claustrophobia 1994 Cough CHRONIC Degeneration of lumbar or lumbosacral intervertebral disc 05/20/2017 GERD (gastroesophageal reflux disease) History of esophageal stricture S/P dilation in 05/2013 History of meningioma STABLE Hyperlipidemia 2009 Hypertension 1998 Joint pain 2009 Hands Knee swelling 2022 Lumbar radiculopathy 05/31/2023 Mediastinal adenopathy stable and calcified.CT scan of the chest 04/01/2014 reports mediastinal and hilar adenopathy bilaterally with the largest lymph node measuring 2.3 cm. Findings appear stable over prior studies dating back to nearly 2 years Nausea & vomiting 04/21/2019 Osteoarthritis [address] scan of the chest 04/01/2014 reports a 4 mm noncalcified right upper lobe nodule with dependent atelectatic changes and there is also a small bulla identified in the left lower lobe. The right upper lobe nodule is stable over prior studies. RLS (restless legs syndrome) Sigmoid diverticulum Sleep apnea USES bipap Past Surgical History: Procedure Laterality Date ABDOMINAL SURGERY 03/16/19 Exploratory surgery related to potential bleed post previous surgery BACK SURGERY Discectomy 2020 BLADDER SUSPENSION COLONOSCOPY 2019 every 5 years ENDOSCOPY ESOPHAGEAL DILATATION Secondary to stricture HYSTERECTOMY 2000 LUMBAR DISCECTOMY Right 12/10/2019 Procedure: LUMBAR DISCECTOMY RIGHT L3-4; Surgeon: Gaston Barnard MD; Location: [facility]; Service: Neurosurgery; Laterality: Right; LUMBAR SYNOVIAL CYST REMOVAL 03/2020 RICCARDO FUNDOPLICATION History of Esophagogastric Fundoplasty Riccardo Fundoplication 2002 SALPINGO OOPHORECTOMY Bilateral SHOULDER ARTHROSCOPY W/ ROTATOR CUFF REPAIR Left 08/24/2022 Procedure: ARTHROSCOPIC ROTATOR CUFF REPAIR WITH LIMITED DEBRIDEMENT- LEFT; Surgeon: Rajesh Engel Jr., MD; Location: [facility]; Service: Orthopedics; Laterality: Left; SPINAL CORD STIMULATOR IMPLANT N/A 06/15/2023 Procedure: THORACIC LAMINOTOMY FOR SPINAL CORD STIMULATOR INSERTION PHASE 1; Surgeon: Gaston Barnard MD; Location: [facility]; Service: Neurosurgery; Laterality: N/A; UPPER GASTROINTESTINAL ENDOSCOPY 03/20/19 General Information Row Name 01/09/25 134 Physical Therapy Time and Intention Document Type evaluation -AE Mode of Treatment physical therapy -AE Row Name 01/09/25 134 General Information Patient Profile Reviewed yes -AE Prior Level of Function independent:;all household mobility;gait;transfer;bed mobility;ADL's;dressing;bathing Has RW at home. -AE Existing Precautions/Restrictions fall;other (see comments) R TKA, WBAT; adductor canal nerve cath -AE Barriers to Rehab medically complex -AE Row Name 01/09/25 134 Living Environment Current Living Arrangements home -AE People in Home spouse -AE Row Name 01/09/25 134 Home Main Entrance Number of Stairs, Main Entrance other (see comments) ramp to enter -AE Stair Railings, Main Entrance none -AE Row Name 01/09/25 134 Stairs Within Home, Primary Number of Stairs, Within Home, Primary none -AE Stair Railings, Within Home, Primary none -AE Row Name 01/09/25 134 Cognition Orientation Status (Cognition) oriented x 3 -AE Row Name 01/09/25 134 Safety Issues/Impairments Affecting Functional Mobility Safety Issues Affecting Function (Mobility) sequencing abilities;safety precaution awareness -AE Impairments Affecting Function (Mobility) endurance/activity tolerance;pain;strength -AE Comment, Safety Issues/Impairments (Mobility) Dizziness initially -AE User Goins (r) = Recorded By, (t) = Taken By, (c) = Cosigned By Initials Name Provider Type AE Raymundo Bustamante PT Physical Therapist Mobility Row Name 01/09/25 112 Bed Mobility Bed Mobility supine-sit -AE Supine-Sit Marked Tree (Bed Mobility) minimum assist (75% patient effort);1 person assist;verbal cues -AE Comment, (Bed Mobility) Increased assist needed to advance RLE to EOB. -AE Row Name 01/09/25 112 Transfers Comment, (Transfers) VCs for hand placement and sequencing. No knee buckling noted with transfers. -AE Row Name 01/09/25 112 Sit-Stand Transfer Sit-Stand Marked Tree (Transfers) contact guard;2 person assist;verbal cues -AE Assistive Device (Sit-Stand Transfers) walker, front-wheeled -AE Row Name 01/09/25 1125 Gait/Stairs (Locomotion) Marked Tree Level (Gait) contact guard;1 person assist;1 person to manage equipment -AE Assistive Device (Gait) walker, front-wheeled -AE Patient was able to Ambulate yes -AE Distance in Feet (Gait) 125 -AE Deviations/Abnormal Patterns (Gait) bilateral deviations;jeffy decreased;gait speed decreased;stride length decreased;weight shifting decreased -AE Bilateral Gait Deviations heel strike decreased;forward flexed posture -AE Right Sided Gait Deviations weight shift ability decreased -AE Comment, (Gait/Stairs) Pt demo step through gait pattern with slowed jeffy and decreased gait speed. Pt noted to have antalgic gait pattern with decreased R knee flexion while ambulating. Pt initially had dizziness limiting mobility requiring seated break. Pt then able to ambulate with no knee buckling noted. -AE User Goins (r) = Recorded By, (t) = Taken By, (c) = Cosigned By Initials Name Provider Type AE Raymundo Bustamante, PT Physical Therapist Obj/Interventions Row Name 01/09/25 1456 Range of Motion Comprehensive General Range of Motion lower extremity range of motion deficits identified -AE Comment, General Range of Motion RLE 10-75 -AE Row Name 01/09/25 1456 Strength Comprehensive (MMT) General Manual Muscle Testing (MMT) Assessment lower extremity strength deficits identified -AE Comment, General Manual Muscle Testing (MMT) Assessment LLE 4/5; did not formally assess RLE -AE Row Name 01/09/25 1456 Motor Skills Therapeutic Exercise -- Educated patient on HEP and completed 1-2 reps of each -AE Row Name 01/09/25 1456 Balance Balance Assessment sitting static balance;sitting dynamic balance;standing static balance;standing dynamic balance -AE Static Sitting Balance standby assist -AE Dynamic Sitting Balance standby assist -AE Position, Sitting Balance unsupported;sitting edge of bed -AE Static Standing Balance contact guard -AE Dynamic Standing Balance contact guard -AE Position/Device Used, Standing Balance supported;walker, front-wheeled -AE Row Name 01/09/25 145 Sensory Assessment (Somatosensory) Sensory Assessment (Somatosensory) right LE -AE Right LE Sensory Assessment general sensation;impaired -AE User Goins (r) = Recorded By, (t) = Taken By, (c) = Cosigned By Initials Name Provider Type Raymundo Miguel, PT Physical Therapist Goals/Plan Row Name 01/09/25 1502 Bed Mobility Goal 1 (PT) Activity/Assistive Device (Bed Mobility Goal 1, PT) sit to supine/supine to sit -AE Marked Tree Level/Cues Needed (Bed Mobility Goal 1, PT) modified independence -AE Time Frame (Bed Mobility Goal 1, PT) 3 days;short term goal (STG) -AE Row Name 01/09/25 1502 Transfer Goal 1 (PT) Activity/Assistive Device (Transfer Goal 1, PT) [id number] -AE Marked Tree Level/Cues Needed (Transfer Goal 1, PT) modified independence -AE Time Frame (Transfer Goal 1, PT) ferry terminal agent goal (LTG);5 days -AE Row Name 01/09/25 1502 Gait Training Goal 1 (PT) Activity/Assistive Device (Gait Training Goal 1, PT) gait (walking locomotion);assistive device use-AE Marked Tree Level (Gait Training Goal 1, PT) modified independence -AE Time Frame (Gait Training Goal 1, PT) retirement goal (LTG);5 days -AE Row Name 01/09/25 1502 ROM Goal 1 (PT) ROM Goal 1 (PT) Surgical Knee ROM: 0-90 -AE Time Frame (ROM Goal 1, PT) long-term goal (LTG);3 days -AE Row Name 01/09/25 1502 Therapy Assessment/Plan (PT) Planned Therapy Interventions (PT) balance training;bed mobility training;gait training;home exercise program;ROM (range of motion);patient/family education;stair training;strengthening;stretching;transfer training -AE User Goins (r) = Recorded By, (t) = Taken By, (c) = Cosigned By Initials Name Provider Type AE Raymundo Bustamante, PT Physical Therapist Clinical Impression Row Name 01/09/25 1458 Pain Pain Location knee -AE Pain Side/Orientation right -AE Pain Management Interventions activity modification encouraged;exercise or physical activity utilized;nursing notified -AE Response to Pain Interventions activity participation with increased pain -AE Additional Documentation Pain Scale: FACES Pre/Post-Treatment (Group) -AE Row Name 01/09/25 1458 Pain Scale: FACES Pre/Post-Treatment Pain: FACES Scale, Pretreatment 2-->hurts little bit -AE Posttreatment Pain Rating 4-->hurts little more -AE Row Name 01/09/25 1458 Plan of Care Review Plan of Care Reviewed With patient;spouse -AE Progress no change -AE Outcome Evaluation Pt presents s/p R TKA with decreased functional independence, decreased activitytolerance, and decreased balance compared to baseline. Pt ambulated 125ft with CGA and RW for support +1 for chair follow. Recommend continued skilled IP PT interventions. Recommend D/C home with assist and OPPT services when medically appropriate. -AE Row Name 01/09/25 1458 Therapy Assessment/Plan (PT) Patient/Family Therapy Goals Statement (PT) Home -AE Rehab Potential (PT) good -AE Criteria for Skilled Interventions Met (PT) yes -AE Therapy Frequency (PT) 2 times/day -AE Predicted Duration of Therapy Intervention (PT) 1 week -AE Row Name 01/09/25 1458 Vital Signs Pre Systolic BP Rehab 135 -AE Pre Treatment Diastolic BP 91 -AE Pre SpO2 (%) 96 -AE O2 Delivery Pre Treatment room air -AE O2 Delivery Intra Treatment room air -AE Post SpO2 (%) 97 -AE O2 Delivery Post Treatment room air -AE Pre Patient Position Supine -AE Intra Patient Position Standing -AE Post Patient Position Sitting -AE Row Name 01/09/25 1458 Positioning and Restraints Pre-Treatment Position in bed -AE Post Treatment Position chair -AE In Chair notified nsg;reclined;call light within reach;encouraged to call for assist;exit alarm on;waffle cushion;legs elevated;compression device;with family/caregiver -AE User Goins (r) = Recorded By, (t) = Taken By, (c) = Cosigned By Initials Name Provider Type AE Raymundo Bustamante, PT Physical Therapist Outcome Measures Row Name 01/09/25 6482 How much help from another person do you currently need... Turning from your back to your side while in flat bed without using bedrails? 3 -AE Moving from lying on back to sitting on the side of a flat bed without bedrails? 3 -AE Moving to and from a bed to a chair (including a wheelchair)? 3 -AE Standing up from a chair using your arms (e.g., wheelchair, bedside chair)? 3 -AE Climbing 3-5 steps with a railing? 3 -AE To walk in hospital room? 3 -AE AM-PAC 6 Clicks Score (PT) 18 -AE Highest Level of Mobility Goal Walk 10 Steps or More-6 -AE Row Name 01/09/25 1503 PADD Diagnosis 1 -AE Gender 1 -AE Age Group 1 -AE Gait Distance 0 -AE Assist Level 1 -AE Home Support 3 -AE PADD Score 7 -AE Patient Preference home with outpatient rehab -AE Prediction by PADD Score extended rehabilitation -AE Row Name 01/09/25 1503 Functional Assessment Outcome Measure Options PADD;AM-PAC 6 Clicks Basic Mobility (PT) -AE User Goins (r) = Recorded By, (t) = Taken By, (c) = Cosigned By Initials Name Provider Type AE Raymundo Bustamante PT Physical Therapist Physical Therapy Education Title: PT OT [facility] Therapies (In Progress) Topic: Physical Therapy (Not Started) Point: Mobility training (Not Started) Learner Progress: Not documented in this visit. Point: Home exercise program (Not Started) Learner Progress: Not documented in this visit. Point: Body mechanics (Not Started) Learner Progress: Not documented in this visit. Point: Precautions (Not Started) Learner Progress: Not documented in this visit. PT Recommendation and Plan Planned Therapy Interventions (PT): balance training, bed mobility training, gait training, home exercise program, ROM (range of motion), patient/family education, stair training, strengthening, stretching, transfer training Progress: no change Outcome Evaluation: Pt presents s/p R TKA with decreased functional independence, decreased activity tolerance, and decreased balance compared to baseline. Pt ambulated 125ft with CGA and RW for support +1 for chair follow. Recommend continued skilled IP PT interventions. Recommend D/C home with assist and OPPT services when medically appropriate. Time Calculation: PT Evaluation Complexity History, PT Evaluation Complexity: 1-2 personal factors and/or comorbidities Examination of Body Systems (PT Eval Complexity): total of 3 or more elements Clinical Presentation (PT Evaluation Complexity): stable Clinical Decision Making (PT Evaluation Complexity): low complexity Overall Complexity (PT Evaluation Complexity): low complexity PT Charges Row Name 01/09/25 1504 Time Calculation Start Time 1117 -AE PT Received On 01/09/25 -AE PT Goal Re-Cert Due Date 01/19/25 -AE Untimed Charges PT Eval/Re-eval Minutes 60 -AE Total Minutes Untimed Charges Total Minutes 60 -AE Total Minutes 60 -AE User Goins (r) = Recorded By, (t) = Taken By, (c) = Cosigned By Initials Name Provider Type AE Raymundo Bustamante, PT Physical Therapist Therapy Charges for Today Code Description Service Date Service Provider Modifiers Qty [id number] HC PT EVAL LOW COMPLEXITY 5 01/09/2025 Raymundo Bustamante, PT 1 [id number] HC PT THER SUPP EA 15 MIN 01/09/2025 Raymundo Bustamante, PT GP 3 PT G-Codes Outcome Measure Options: PADD, AM-PAC 6 Clicks Basic Mobility (PT) AM-PAC 6 Clicks Score (PT): 18 PT Discharge Summary Anticipated Discharge Disposition (PT): home with assist, home with outpatient therapy services Raymundo Bustamante PT 01/09/2025 documented in this encounter Plan of Treatment Upcoming Encounters Date Type Department Care Team (Late st Contact Info) Description 03/01/2025 11:00 AM EDT Appointment [facility] [address] [facility] [address] [place] [phone] 03/01/2025 2:00 PM EDT Office Visit [facility] NEUROSURGERY [address] [facility] [address] [place] [phone] Gaston Barnard MD [address] [place] [phone] 04/16/2025 1:00 PM EST Office Visit [facility] ORTHOPEDICS & SPORTS MEDICINE [address] [facility] [address] [place] [phone] Brenton Hood MD [address] [facility] [address] [place] [address] 05/20/2025 3:00 PM EST Office Visit [facility] NEUROLOGY [address] [facility] [address] [place] [phone] Casi Starr, DEVON [address] [facility] [address] [place] [address] documented as of this encounter Goals Goal Patient Goal Type Associated Problems Recent Progress Patient-Stated? Author Autogenera ivette Goal Care Plan Autogenerated Problem No Brenton Hood MD documented as of this encounter Procedures Procedure Name Priority Date/Time Associated Diagnosis Comments CBC (NO DIFF) Routine 01/10/2025 7:53 AM EDT BASIC METABOLIC PANEL Routine 01/10/2025 7:53 AM EDT XR KNEE 1 OR 2 VW RIGHT STAT 01/09/2025 10:52 AM EDT IN ARTHRP KNE CONDYLE&PLATU MEDIAL&LAT COMPARTMENTS 01/09/2025 7:04 AM EDT Primary osteoarthritis of right knee Special Needs SUPINE, TRIATHALON CR POCT GLUCOSE FINGERSTICK Routine 01/09/2025 6:35 AM EDT POTASSIUM Urgent 01/09/2025 6:34 AM EDT documented in this encounter Results * (ABNORMAL) Basic Metabolic Panel (01/10/2025 7:53 AM EDT) Glucose 122(H) 65 - 99 mg/dL 01/10/2025 11:00 AM EDT [facility] BUN 14.9 8.0 - 23.0 mg/dL 01/10/2025 11:00 AM EDT [facility] Creatinine 0.77 0.57 - 1.00 mg/dL 01/10/2025 11:00 AM EDT [facility] Sodium 132(L) 136 - 145 mmol/L 01/10/2025 11:00 AM EDT [facility] Potassium 3.7 3.5 - 5.2 mmol/L 01/10/2025 11:00 AM EDT [facility] Chloride 95(L) 98 - 107 mmol/L 01/10/2025 11:00 AM EDT [facility] CO2 28.4 22.0 - 29.0 mmol/L 01/10/2025 11:00 AM EDT [facility] Calcium 9.2 8.6 - 10.5 mg/dL 01/10/2025 11:00 AM EDT [facility] BUN/Creatinine Ratio 19.4 7.0 - 25.0 01/10/2025 11:00 AM EDT [facility] Anion Gap 8.6 5.0 - 15.0 mmol/L 01/10/2025 11:00 AM EDT [facility] eGFR 83.1 >60.0 mL/min/1.7 3 01/10/2025 11:00 AM EDT [facility] Blood Venipuncture / Unknown 01/10/2025 7:53 AM EDT 01/10/2025 10:16 AM EDT [facility] - 01/10/2025 11:00 AM EDT GFR Categories in Chronic Kidney Disease (CKD) GFR Category GFR (mL/min/1.73) Interpretation G1 90 or greater Normal or high (1) G2 60-89 Mild decrease (1) G3a 45-59 Mild to moderate decrease G3b 30-44 Moderate to severe decrease G4 15-29 Severe decrease G5 14 or less Kidney failure (1)In the absence of evidence of kidney disease, neither GFR category G1 or G2 fulfill the criteria for CKD. eGFR calculation 2020 CKD-EPI creatinine equation, which does not include race as a factor us Brenton Hood MD LAB BLOOD ORDERABLES Final Result [facility]
[address] [place] [address], * (ABNORMAL) CBC (No Diff) (01/10/2025 7:53 AM EDT) WBC 14.13(H) 3.40 - 10.80 10*3/mm3 01/10/2025 10:23 AM EDT [facility] RBC 4.12 3.77 - 5.28 10*6/mm3 01/10/2025 10:23 AM EDT [facility] Hemoglobin 12.6 12.0 - 15.9 g/dL 01/10/2025 10:23 AM EDT [facility] Hematocrit 37.7 34.0 - 46.6 % 01/10/2025 10:23 AM EDT [facility] MCV 91.5 79.0 - 97.0 fL 01/10/2025 10:23 AM EDT [facility] MCH 30.6 26.6 - 33.0 pg 01/10/2025 10:23 AM EDT [facility] MCHC 33.4 31.5 - 35.7 g/dL 01/10/2025 10:23 AM EDT [facility] RDW 13.8 12.3 - 15.4 % 01/10/2025 10:23 AM EDT [facility] RDW-SD 46.9 37.0 - 54.0 fl 01/10/2025 10:23 AM EDT [facility] MPV 9.1 6.0 - 12.0 fL 01/10/2025 10:23 AM EDT [facility] Platelets 247 140 - 450 10*3/mm3 01/10/2025 10:23 AM EDT [facility] Blood Venipuncture / Unknown 01/10/2025 7:53 AM EDT 01/10/2025 10:16 AM [facility] Final Result [facility]
[address] [place] [address], * XR Knee 1 or 2 View Right (01/09/2025 10:52 AM EDT) Anatomical Region Laterality Modality Lower Extremities, Knee Right Radiogra phic Imaging 01/09/2025 11:0 9 AM EDT Impressions 01/09/2025 11:09 AM EDT Impression: Expected changes of recent total knee arthroplasty. Electronically Signed: Dann Schwab MD 01/09/2025 11:09 AM EDT Workstation ID: [id number] Narrative 01/09/2025 11:09 AM EDT XR KNEE 1 OR 2 VW RIGHT Date of Exam: 01/09/2025 10:40 AM EDT Indication: Post-Op Knee Arthoplasty Comparison: Right knee radiograph 08/21/2024 Findings: Total right knee arthroplasty. Anatomic alignment. No visualized periprosthetic fracture or other hardware complication. Expected joint space and surrounding soft tissue gas. Postsurgical ghost tracks in the tibia. Procedure Note Dann Schwab MD - 01/09/2025 XR KNEE 1 OR 2 VW RIGHT Date of Exam: 01/09/2025 10:40 AM EDT Indication: Post-Op Knee Arthoplasty Comparison: Right knee radiograph 08/21/2024 Findings: Total right knee arthroplasty. Anatomic alignment. No visualizedperiprosthetic fracture or other hardware complication. Expected jointspace and surrounding soft tissue gas. Postsurgical ghost tracks in thetibia. IMPRESSION: Impression: Expected changes of recent total knee arthroplasty. Electronically Signed: Dann Schwab MD 01/09/2025 11:09 AM EDT Workstation ID: [id number] Brenton Hood MD IMG DIAGNOSTIC IMAGING ORDE JANETH Final Result * POC Glucose Once (01/09/2025 6:35 AM EDT) Glucose 85 70 - 130 mg/dL 01/09/2025 6:36 AM EDT [facility] Blood 01/09/2025 6:35 AM EDT 01/09/2025 6:36 AM EDT Brenton Hood MD POINT OF CARE TEST ORDERABL ES Final Result [facility]
[address] [place] [address], * Potassium (01/09/2025 6:34 AM EDT) Potassium 3.9 3.5 - 5.2 mmol/L 01/09/2025 6:53 AM EDT [facility] Blood Line / Unknown 01/09/2025 6: 34 AM EDT 01/09/2025 6:34 AM EDT Maurice Brownlee MD LAB BLOOD ORDERABLES Final Resu lt [facility]
[address] [place] [address], documented in this encounter Visit Diagnoses Diagnosis Status post total right knee replacement- Primary Primary osteoarthritis of right knee S/P TKR (total knee replacement), right Primary osteoarthritis of right knee Arthritis of knee Unspecified arthropathy, lower leg HTN (hypertension) Unspecified essential hypertension Hyperlipidemia Other and unspecified hyperlipidemia MILEY (obstructive sleep apnea) Obstructive sleep apnea (adult) (pediatric) documented in this encounter Admitting Diagnoses Diagnosis Primary osteoarthritis of right knee Arthritis of knee Unspecified arthropathy, lower leg documented in this encounter Administered Medications Inactive Administered Medications - up to 3 most recent administrations Medication Order MAR Action Action Date Dose Rate Site acetaminophen (TYLENOL) tablet 1,000 mg 1,000 mg, Oral, Once, On Tue01/09/25 at 0607, For 1 dose, Based on patient request - if ordered for moderate or severe pain, provider allows for administration of a medication prescribed for a lower pain scale. Do not exceed 4 grams of acetaminophen in a 24 hr period. Max dose of 2gm for AST/ALT greater than 120 units/L. If given for pain, use the following pain scale: Mild Pain = Pain Score of 1-3, CPOT 1-2 Moderate Pain = Pain Score of 4-6, CPOT 3-4 Severe Pain = Pain Score of 7-10, CPOT 5-8Indications:Primary osteoarthritis of right knee Given 01/09/2025 6:37 AM EDT 1,000 mg acetaminophen (TYLENOL) tablet 1,000 mg 1,000 mg, Oral, Every 8 Hours, First dose on Tue01/09/25 at 1500, Based on patient request - if ordered for moderate or severe pain, provider allows for administration of a medication prescribed for a lower pain scale. Do not exceed 4 grams of acetaminophen in a 24 hr period. Max dose of 2gm for AST/ALT greater than 120 units/L. If given for pain, use the following pain scale: Mild Pain = Pain Score of 1-3, CPOT 1-2 Moderate Pain = Pain Score of 4-6, CPOT 3-4 Severe Pain = Pain Score of 7-10, CPOT 5-8 Given 01/10/2025 2:01 PM EDT 1,000 mg Given 01/10/2025 6:00 AM EDT 1,000 mg Given 01/09/2025 11:10 PM EDT 1,000 mg amLODIPine (NORVASC) tablet 5 mg 5 mg, Oral, Nightly, First dose on Tue01/09/25 at 2100, Hold for SBP less than 100, DBP less than 60. Caution: Look alike/sound alike drug alert. Avoid grapefruit juice. Given 01/09/2025 8:10 PM EDT 5 mg aspirin EC tablet 81 mg 81 mg, Oral, Every 12 Hours Scheduled, First dose on Iza 01/10/25 at 0900, Do not crush or chew the capsules or tablets. The drug may not work as designed if the capsule or tablet is crushed or chewed. Swallow whole. Do not exceed 4 grams of aspirin in a 24 hr period. If given for pain, use the following pain scale: Mild Pain = Pain Score of 1-3, CPOT 1-2 Moderate Pain = Pain Score of 4-6, CPOT 3-4 Severe Pain = Pain Score of 7-10, CPOT 5-8, Indications: VTE ProphylaxisIndications:VTE Prophylaxis Given 01/10/2025 9:36 AM EDT 81 mg ceFAZolin 1000 mg IVPB in 100 mL NS (MBP) 1,000 mg, Intravenous, Administer over 30 Minutes, Once, On Tue01/09/25 at 0907, For 1 dose, Administer this med on arrival to the PACU. Caution: Look alike/sound alike drug alert, Indications: Surgical ProphylaxisIndications:Surgical Prophylaxis New Bag 01/09/2025 9:39 AM EDT 1,000 mg ceFAZolin 2000 mg IVPB in 100 mL NS (MBP) 2 g, Intravenous, Administer over 30 Minutes, Every 8 Hours, First dose on Tue01/09/25 at 1600, For 2 doses, Time from pre-op dose Caution: Look alike/sound alike drug alert, Indications: Surgical ProphylaxisIndications:Surgical Prophylaxis New Bag 01/09/2025 11:10 PM EDT 2 g New Bag 01/09/2025 5:42 PM EDT 2 g DULoxetine (CYMBALTA) DR capsule 60 mg 60 mg, Oral, Nightly, First dose on Tue01/09/25 at 2100, Do not crush or chew the capsules or tablets. The drug may not work as designed if the capsule or tablet is crushed or chewed. Swallow whole. Caution: Look alike/sound alike drug alert. Capsule may be opened and sprinkled on applesauce or apple juice. Do not crush or chew capsule. Given 01/09/2025 8:10 PM EDT 60 mg ethyl alcohol 62 % 2 each 2 each (2 Swab), Nasal, Once, On Tue01/09/25 at 0607, For 1 dose, Administer 15-60 minutes prior to surgery following these steps: Clean nostrils with a tissue, apply a 62% ethyl alcohol swab to the right nostril gently rotating the swab for 30 seconds, repeat the process with the 2nd swab in the left nostril.Indications:Primary osteoarthritis of right knee Given 01/09/2025 6:38 AM EDT 2 each famotidine (PEPCID) tablet 20 mg 20 mg, Oral, Once, On Tue01/09/25 at 0607, For 1 dose Given 01/09/2025 6:37 AM EDT 20 mg HYDROmorphone (DILAUDID) injection 0.5 mg 0.5 mg, Intravenous, Every 2 Hours PRN, Severe Pain, Starting on Tue01/09/25 at 1119, For 10 days, If given for pain, use the following pain scale: Mild Pain = Pain Score of 1-3, CPOT 1-2 Moderate Pain = Pain Score of 4-6, CPOT 3-4 Severe Pain = Pain Score of 7-10, CPOT 5-8 labetalol (NORMODYNE,TRANDATE) injection 10 mg 10 mg, Intravenous, Every 4 Hours PRN, High Blood Pressure, SBP>180, DBP>110, Starting on Tue01/09/25 at 1547, Give IV Push over 2 minutes. lactated ringers infusion 9 mL/hr, Intravenous, Continuous, Starting on Iza 01/10/25 at 0600, For 1 day, May switch to NS IV at KVO if renal / if indicated Restarted 01/09/2025 7:18 AM EDT New Bag 01/09/2025 6:28 AM EDT 9 mL/hr 9 mL/hr lidocaine PF 1% (XYLOCAINE) injection 0.5 mL 0.5 mL, Injection, Once As Needed, IV Start, Starting on Tue01/09/25 at 0605, For 1 dose Given 01/09/2025 6:28 AM E DT 0.5 mL melatonin tablet 5 mg 5 mg, Oral, Nightly, First dose on Tue01/09/25 at 2100 Given 01/09/2025 8:10 PM EDT 5 mg meloxicam (MOBIC) tablet 15 mg 15 mg, Oral, Daily, First dose on Tue01/09/25 at 1215, Take with food. If given for pain, use the following pain scale: Mild Pain = Pain Score of 1-3, CPOT 1-2 Moderate Pain = Pain Score of 4-6, CPOT 3-4 Severe Pain = Pain Score of 7-10, CPOT 5-8 Given 01/10/2025 9:36 AM EDT 15 mg Given 01/09/2025 12:31 PM EDT 15 mg metoprolol succinate XL (TOPROL-XL) 24 hr tablet 50 mg 50 mg, Oral, Nightly, First dose on Tue01/09/25 at 2100, Hold for SBP less than 100, DBP less than 60, or heart rate less than 50 Do not crush or chew the capsules or tablets. The drug may not work as designed if the capsule or tablet is crushed or chewed. Swallow whole. Do not crush or chew. Given 01/09/2025 8:10 PM EDT 50 mg naloxone (NARCAN) injection 0.1 mg 0.1 mg, Intravenous, Every 5 Minutes PRN, Respiratory Depression, Starting on Tue01/09/25 at 1119, If respiratory rate is less than 8 breaths/minute or patient is difficult to arouse stop any narcotics and contact physician. Administer slow IV push. Repeat as ordered until patient's respiratory rate is greater than 12 breaths/minute. ondansetron (ZOFRAN) injection 4 mg 4 mg, Intravenous, Every 6 Hours PRN, Nausea, Vomiting, Starting on Tue01/09/25 at 1119, If BOTH ondansetron (ZOFRAN) and promethazine (PHENERGAN) are ordered use ondansetron first and THEN promethazine IF ondansetron is ineffective. ondansetron ODT (ZOFRAN-ODT) disintegrating tablet 4 mg 4 mg, Oral, Every 6 Hours PRN, Nausea, Vomiting, Starting on Tue01/09/25 at 1119, If BOTH ondansetron (ZOFRAN) and promethazine (PHENERGAN) are ordered use ondansetron first and THEN promethazine IF ondansetron is ineffective. Place on tongue and allow to dissolve. oxyCODONE (ROXICODONE) immediate release tablet 5 mg 5 mg, Oral, Every 4 Hours PRN, Moderate Pain, Starting on Tue01/09/25 at 1119, For 10 days, (JANNETTE) If given for pain, use the following pain scale: Mild Pain = Pain Score of 1-3, CPOT 1-2 Moderate Pain = Pain Score of 4-6, CPOT 3-4 Severe Pain = Pain Score of 7-10, CPOT 5-8 Given 01/10/2025 2:02 PM EDT 5 mg Given 01/10/2025 6:29 AM EDT 5 mg Given 01/09/2025 8:25 PM EDT 5 mg pantoprazole (PROTONIX) EC tablet 40 mg 40 mg, Oral, Daily, First dose on Tue01/09/25 at 1645, Do not crush or chew the capsules or tablets. The drug may not work as designed if the capsule or tablet is crushed or chewed. Swallow whole. Swallow whole; do not crush, split, or chew. Given 01/10/2025 9:36 AM EDT 40 mg Given 01/09/2025 5:42 PM EDT 40 mg pregabalin (LYRICA) capsule 75 mg 75 mg, Oral, Once, On Tue01/09/25 at 0607, For 1 dose, (JANNETTE)Indications:Primary osteoarthritis of right knee Given 01/09/2025 6:37 AM EDT 75 mg ropivacaine (NAROPIN) 0.2 % infusion (INFUSYSTEM) Peripheral Nerve, Continuous, Starting on Tue01/09/25 at 0852, If pain greater than 7 out of 10, please notify the Developmental Therapist Provider at [phone](messages go to beeper service). Thank you If Pt. Has a Hip Fx block(Fascia Iliacus), please remove Block Catheter prior to Discharge, Basal Rate: 1 mL/hr, Programmed Intermittent Bolus (PIB): 8 mL, PIB Lockout Interval: 120 min, CAFETERIA MONITOR Bolus: 8 mL, CAFETERIA MONITOR Lockout Interval: 30 min New Bag 01/09/2025 9:40 AM EDT 1,000 mg rosuvastatin (CRESTOR) tablet 20 mg 20 mg, Oral, Nightly, First dose on Tue01/09/25 at 2100, Avoid grapefruit juice. Given 01/09/2025 8:10 PM EDT 20 mg sodium chloride 0.9 % bolus 500 mL 500 mL, Intravenous, at 250 mL/hr, Administer over 2 Hours, 3 Times Daily PRN, for SBP less than 90, Starting on Tue01/09/25 at 1547 sodium chloride 0.9 % flush 3 mL 3 mL, Intravenous, Every 12 Hours Scheduled, First dose on Tue01/09/25 at 1215 Given 01/10/2025 9:36 AM EDT 3 mL Given 01/09/2025 8:11 PM EDT 3 mL documented in this encounter Active and Recently Administered Medications Times are shown in EDT. Scheduled Medication Order 01/08/2025 01/09/2025 01/10/2025 acetaminophen (TYLENOL) tablet 1,000 mg (COMPLETED) 1,000 mg, Oral, Once, On Tue01/09/25 at 0607, For 1 dose, Based on patient request - if ordered for moderate or severe pain, provider allows for administration of a medication prescribed for a lower pain scale. Do not exceed 4 grams of acetaminophen in a 24 hr period. Max dose of 2gm for AST/ALT greater than 120 units/L. If given for pain, use the following pain scale: Mild Pain = Pain Score of 1-3, CPOT 1-2 Moderate Pain = Pain Score of 4-6, CPOT 3-4 Severe Pain = Pain Score of 7-10, CPOT 5-8 0637 (Given - Provider: Glenny Pruett RN) acetaminophen (TYLENOL) tablet 1,000 mg 1,000 mg, Oral, Every 8 Hours, First dose on Tue01/09/25 at 1500, Based on patient request - if ordered for moderate or severe pain, provider allows for administration of a medication prescribed for a lower pain scale. Do not exceed 4 grams of acetaminophen in a 24 hr period. Max dose of 2gm for AST/ALT greater than 120 units/L. If given for pain, use the following pain scale: Mild Pain = Pain Score of 1-3, CPOT 1-2 Moderate Pain = Pain Score of 4-6, CPOT 3-4 Severe Pain = Pain Score of 7-10, CPOT 5-8 1742 (Given - Provider: Trina Zhang RN)2310 (Given - Provider: Kala Velasquez, ZOHREH) 0600 (Given - Provider: Kala Velasquez, ZOHREH)1401 (Given - Provider: Trina Zhang RN) amLODIPine (NORVASC) tablet 5 mg 5 mg, Oral, Nightly, First dose on Tue01/09/25 at 2100, Hold for SBP less than 100, DBP less than 60. Caution: Look alike/sound alike drug alert. Avoid grapefruit juice. 2009 (Given - Provider: Kala Velasquez, ZOHREH) aspirin EC tablet 81 mg 81 mg, Oral, Every 12 Hours Scheduled, First dose on Tue01/10/25 at 0900, Do not crush or chew the capsules or tablets. The drug may not work as designed if the capsule or tablet is crushed or chewed. Swallow whole. Do not exceed 4 grams of aspirin in a 24 hr period. If given for pain, use the following pain scale: Mild Pain = Pain Score of 1-3, CPOT 1-2 Moderate Pain = Pain Score of 4-6, CPOT 3-4 Severe Pain = Pain Score of 7-10, CPOT 5-8, Indications: VTE Prophylaxis 935 (Given - Provid er: Trina Zhang RN) ceFAZolin 1000 mg IVPB in 100 mL NS (MBP) (COMPLETED) 1,000 mg, Intravenous, Administer over 30 Minutes, Once, On Tue01/09/25 at 0907, For 1 dose, Administer this med on arrival to the PACU. Caution: Look alike/sound alike drug alert, Indications: Surgical Prophylaxis 0939 (New Bag - Provider: Ana María Oscar RN) ceFAZolin 2000 mg IVPB in 100 mL NS (MBP) (COMPLETED) 2 g, Intravenous, Administer over 30 Minutes, Once, On Tue01/09/25 at 0607, For 1 dose, Administer Within 1 Hour of Surgical Incision. Redose 4 Hours From Pre-Op Dose if Procedure Ongoing or Blood Loss Greater Than 1.5 L Caution: Look alike/sound alike drug alert, Indications: Surgical Prophylaxis 0721 (New Bag - Provider: AMBER Iqbal) ceFAZolin 2000 mg IVPB in 100 mL NS (MBP) (COMPLETED) 2 g, Intravenous, Administer over 30 Minutes, Every 8 Hours, First dose on Tue01/09/25 at 1600, For 2 doses, Time from pre-op dose Caution: Look alike/sound alike drug alert, Indications: Surgical Prophylaxis 1742 (New Bag - Provider: Trina Zhang RN)2310 (New Bag - Provider: Kala Velasquez RN) DULoxetine (CYMBALTA) DR capsule 60 mg 60 mg, Oral, Nightly, First dose on Tue01/09/25 at 2100, Do not crush or chew the capsules or tablets. The drug may not work as designed if the capsule or tablet is crushed or chewed. Swallow whole. Caution: Look alike/sound alike drug alert. Capsule may be opened and sprinkled on applesauce or apple juice. Do not crush or chew capsule. 2009 (Given - Provider: Kala Velasquez RN) ethyl alcohol 62 % 2 each (COMPLETED) 2 each (2 Swab), Nasal, Once, On Tue01/09/25 at 0607, For 1 dose, Administer 15-60 minutes prior to surgery following these steps: Clean nostrils with a tissue, apply a 62% ethyl alcohol swab to the right nostril gently rotating the swab for 30 seconds, repeat the process with the 2nd swab in the left nostril. 0638 (Given - Provider: Glenny Pruett, ZOHREH) famotidine (PEPCID) tablet 20 mg (COMPLETED) 20 mg, Oral, Once, On Tue01/09/25 at 0607, For 1 dose 0637 (Given - Provider: Glenny Pruett RN) famotidine (PEPCID) tablet 40 mg 40 mg, Oral, Nightly, First dose on Tue01/10/25 at 2100 melatonin tablet 5 mg 5 mg, Oral, Nightly, First dose on Tue01/09/25 at 2100 2009 (Given - Provider: Kala Velasquez, ZOHREH) meloxicam (MOBIC) tablet 15 mg 15 mg, Oral, Daily, First dose on Tue01/09/25 at 1215, Take with food. If given for pain, use the following pain scale: Mild Pain = Pain Score of 1-3, CPOT 1-2 Moderate Pain = Pain Score of 4-6, CPOT 3-4 Severe Pain = Pain Score of 7-10, CPOT 5-8 1231 (Given - Provider: Trina Zhang RN) 0936 (Given - Provider: Trina Zhang RN) metoprolol succinate XL (TOPROL-XL) 24 hr tablet 50 mg 50 mg, Oral, Nightly, First dose on Tue01/09/25 at 2100, Hold for SBP less than 100, DBP less than 60, or heart rate less than 50 Do not crush or chew the capsules or tablets. The drug may not work as designed if the capsule or tablet is crushed or chewed. Swallow whole. Do not crush or chew. 2009 (Given - Provider: Kala Velasquez RN) pantoprazole (PROTONIX) EC tablet 40 mg 40 mg, Oral, Daily, First dose on Tue01/09/25 at 1645, Do not crush or chew the capsules or tablets. The drug may not work as designed if the capsule or tablet is crushed or chewed. Swallow whole. Swallow whole; do not crush, split, or chew. 174 (Given - Provider: Trina Zhang, ZOHREH) 0936 (Given - Provider: Trina Zhang RN) pregabalin (LYRICA) capsule 75 mg (COMPLETED) 75 mg, Oral, Once, On Tue01/09/25 at 0607, For 1 dose, (JANNETTE) 0637 (Given - Provider: Glenny Pruett RN) rosuvastatin (CRESTOR) tablet 20 mg 20 mg, Oral, Nightly, First dose on Tue01/09/25 at 2100, Avoid grapefruit juice. 2009 (Given - Provider: Kala Velasquez, ZOHREH) sodium chloride 0.9 % flush 3 mL 3 mL, Intravenous, Every 12 Hours Scheduled, First dose on Tue01/09/25 at 1215 1215 (Due)2010 (Given - Provider: Kala Velasquez RN) 09 (Given - Provider: Trina Zhang RN) tranexamic acid 1000 mg in 100 mL 0.7% NaCl infusion (premix) (COMPLETED) 1,000 mg, Intravenous, Administer over 30 Minutes, Once, On Tue01/09/25 at 0607, For 1 dose, Give prior to incision. 0725 (New Bag - Provider: AMBER Iqbal)0835 (Bolus - Provider: AMBER Iqbal) Continuous Medication Order 01/08/2025 01/09/2025 01/10/2025 lactated ringers infusion 9 mL/hr, Intravenous, Continuous, Starting on Iza 01/10/25 at 0600, For 1 day, May switch to NS IV at KVO if renal / if indicated 0628 (New Bag - Provider: Glenny Pruett RN)0717 (Paused - Provider: AMBER Iqbal - Comment: Switch to gravity)0718 (Restarted - Provider: AMBER Iqbal)0904 (Anesthesia Volume Adjustment - Provider: AMBER Iqbal) 0543 (Stopped - Provider: Kala Velasquez RN - Comment: [Order ends at this time. Document the following action when infusion is complete: Stopped])0544 (Not Given - Provider: Kala Velasquez RN - Reason: Other - Comment: order ending) lactated ringers infusion 9 mL/hr, Intravenous, Continuous, Starting on Tue01/09/25 at 0907, For 1 day 1231 (Canceled Entry - Provider: Trina Zhang RN) ropivacaine (NAROPIN) 0.2 % infusion (INFUSYSTEM) Peripheral Nerve, Continuous, Starting on Tue01/09/25 at 0852, If pain greater than 7 out of 10, please notify the Developmental Therapist Provider at [phone](messages go to eegoes service). Thank you If Pt. Has a Hip Fx block(Fascia Iliacus), please remove Block Catheter prior to Discharge, Basal Rate: 1 mL/hr, Programmed Intermittent Bolus (PIB): 8 mL, PIB Lockout Interval: 120 min, CAFETERIA MONITOR Bolus: 8 mL, CAFETERIA MONITOR Lockout Interval: 30 min 0940 (New Bag - Provider: Ana María Oscar RN) 1815 (Due: Order Ending - Provider: Automatic Discharge Provider - Comment: [Order ends at this time. Document the following action when infusion is complete: Stopped]) PRN Medication Order 01/08/2025 01/09/2025 01/10/2025 HYDROmorphone (DILAUDID) injection 0.5 mg(Linked Group 1) 0.5 mg, Intravenous, Every 2 Hours PRN, Severe Pain, Starting on Tue01/09/25 at 1119, For 10 days, If given for pain, use the following pain scale: Mild Pain = Pain Score of 1-3, CPOT 1-2 Moderate Pain = Pain Score of 4-6, CPOT 3-4 Severe Pain = Pain Score of 7-10, CPOT 5-8 labetalol (NORMODYNE,TRANDATE) injection 10 mg 10 mg, Intravenous, Every 4 Hours PRN, High Blood Pressure, SBP>180, DBP>110, Starting on Tue01/09/25 at 1547, Give IV Push over 2 minutes. lidocaine PF 1% (XYLOCAINE) injection 0.5 mL (COMPLETED) 0.5 mL, Injection, Once As Needed, IV Start, Starting on Tue01/09/25 at 0605, For 1 dose 0628 (Given - Provider: Glenny Pruett RN) naloxone (NARCAN) injection 0.1 mg(Linked Group 1) 0.1 mg, Intravenous, Every 5 Minutes PRN, Respiratory Depression, Starting on Tue01/09/25 at 1119, If respiratory rate is less than 8 breaths/minute or patient is difficult to arouse stop any narcotics and contact physician. Administer slow IV push. Repeat as ordered until patient's respiratory rate is greater than 12 breaths/minute. ondansetron (ZOFRAN) injection 4 mg(Linked Group 2) 4 mg, Intravenous, Every 6 Hours PRN, Nausea, Vomiting, Starting on Tue01/09/25 at 1119, If BOTH ondansetron (ZOFRAN) and promethazine (PHENERGAN) are ordered use ondansetron first and THEN promethazine IF ondansetron is ineffective. ondansetron ODT (ZOFRAN-ODT) disintegrating tablet 4 mg(Linked Group 2) 4 mg, Oral, Every 6 Hours PRN, Nausea, Vomiting, Starting on Tue01/09/25 at 1119, If BOTH ondansetron (ZOFRAN) and promethazine (PHENERGAN) are ordered use ondansetron first and THEN promethazine IF ondansetron is ineffective. Place on tongue and allow to dissolve. oxyCODONE (ROXICODONE) immediate release tablet 10 mg 10 mg, Oral, Every 4 Hours PRN, Severe Pain, Starting on Tue01/09/25 at 1119, For 10 days, If given for pain, use the following pain scale: Mild Pain = Pain Score of 1-3, CPOT 1-2 Moderate Pain = Pain Score of 4-6, CPOT 3-4 Severe Pain = Pain Score of 7-10, CPOT 5-8 oxyCODONE (ROXICODONE) immediate release tablet 5 mg 5 mg, Oral, Every 4 Hours PRN, Moderate Pain, Starting on Tue01/09/25 at 1119, For 10 days, (JANNETTE) If given for pain, use the following pain scale: Mild Pain = Pain Score of 1-3, CPOT 1-2 Moderate Pain = Pain Score of 4-6, CPOT 3-4 Severe Pain = Pain Score of 7-10, CPOT 5-8 1231 (Given - Provider: Trina Zhang RN)2025 (Given - Provider: Kala Velasquez RN) 0629 (Given - Provider: Kaal Velasquez RN)1402 (Given - Provider: Trina Zhang RN) povidone iodine (SURGIPHOR) 0.05 % in sodium chloride (CANCELED) As Needed, Starting on Tue01/09/25 at 0739 0739 (Given - Provider: Brenton Hood MD) sodium chloride (NS) irrigation solution (CANCELED) As Needed, Starting on Tue01/09/25 at 0739 0739 (Given - Provider: Brenton Hood MD) sodium chloride 0.9 % bolus 500 mL 500 mL, Intravenous, at 250 mL/hr, Administer over 2 Hours, 3 Times Daily PRN, for SBP less than 90, Starting on Tue01/09/25 at 1547 sodium chloride 0.9 % flush 3-10 mL 3-10 mL, Intravenous, As Needed, Line Care, Starting on Tue01/09/25 at 1119 sodium chloride 20 mL, lidocain 0.5%-EPINEPHrine [id number] 20 mL, ropivacaine 0.5 % 20 mL, ketorolac 30 mg, Morphine sulfate (PF) 2 mL mixture (CANCELED) As Needed, Starting on Tue01/09/25 at 0807 0807 (Given - Provider: Brenton Hood MD - Comment: given to sterile field) Linked Groups Order Group 1: HYDROmorphone (DILAUDID) injection 0.5 mgJump to med 0.5 mg, Intravenous, Every 2 Hours PRN, Severe Pain, Starting on Tue01/09/25 at 1119, For 10 days, If given for pain, use the following pain scale: Mild Pain = Pain Score of 1-3, CPOT 1-2 Moderate Pain = Pain Score of 4-6, CPOT 3-4 Severe Pain = Pain Score of 7-10, CPOT 5-8 And naloxone (NARCAN) injection 0.1 mgJump to med 0.1 mg, Intravenous, Every 5 Minutes PRN, Respiratory Depression, Starting on Tue01/09/25 at 1119, If respiratory rate is less than 8 breaths/minute or patient is difficult to arouse stop any narcotics and contact physician. Administer slow IV push. Repeat as ordered until patient's respiratory rate is greater than 12 breaths/minute. Group 2: ondansetron ODT (ZOFRAN-ODT) disintegrating tablet 4 mgJump to med 4 mg, Oral, Every 6 Hours PRN, Nausea, Vomiting, Starting on Tue01/09/25 at 1119, If BOTH ondansetron (ZOFRAN) and promethazine (PHENERGAN) are ordered use ondansetron first and THEN promethazine IF ondansetron is ineffective. Place on tongue and allow to dissolve. Or ondansetron (ZOFRAN) injection 4 mgJump to med 4 mg, Intravenous, Every 6 Hours PRN, Nausea, Vomiting, Starting on Tue01/09/25 at 1119, If BOTH ondansetron (ZOFRAN) and promethazine (PHENERGAN) are ordered use ondansetron first and THEN promethazine IF ondansetron is ineffective. documented in this encounter Additional Health Concerns Active Problems Noted Date Diagnosed Date Autogenerated Problem 02/09/2025 documented as of this encounter Care Teams Sec Accountant Relationship Specialty Start Date End Date Js Jack MD [address] [facility] [address] [place] [address] PCP - General 01/27/15 documented as of this encounter
--- OUTSIDE RECORDS SUMMARY | 2025-01-09 07:15 | XMS_ITS | Encounter Summary ---
Author Organization [facility] ystem Address [address] [place] [address] Care Team Providers Care Small Stock Facer Name Role Phone Js Jack MD Primary Care Provider [phone] Reason for Visit * Auth/Cert Specialty Diagnoses / Procedures Referred By Contac t Referred To Contact Diagnoses Primary osteoarthritis of right knee Primary osteoarthritis of right knee [M17.11] Procedures MD ARTHRP KNE CONDYLE&PLATU MEDIAL&LAT COMPARTMENTS TOTAL KNEE ARTHROPLASTY WITH RIGHT Referral ID Status Reason Start Date Expiration Date Visits Re quested Visits Authorized [id number] 1 1 Encounter Details Date Type Department Care Team (Late st Contact Info) Description 01/09/2025 7:15 AM EDT - 01/09/2025 9:50 AM EDT Surgery [facility] OR [address] [place] [address] Brenton Hood MD [address] [facility] [address] [place] [address] TOTAL KNEE ARTHROPLASTY WITH ERIN ROBOT [88512 (CPT )] Social History Tobacco Use Types Packs/Day Years [...] or training? Not on file Preferred Language Citizen Of [place] 12/26/2024 PHQ-2 Answer Date Recorded Retired PHQ-9: [...] Sign Reading Time Taken Comments Blood Pressure 135/83 01/09/2025 9:50 AM EDT Pulse 56 01/09/2025 9:50 AM EDT Temperature 36.4 C (97.6 F) 01/09/2025 9:50 AM EDT Respiratory Rate 12 01/09/2025 9:20 AM EDT Oxygen Saturation 99% 01/09/2025 9:50 AM EDT Inhaled Oxygen Concentration - - Weight 72.1 kg (159 lb) 01/09/2025 6:16 AM EDT Height 161.3 cm (5' 3.5 ) 01/09/2025 6:16 AM EDT Body Mass Index 27.72 01/09/2025 6:16 AM EDT documented in this encounter Functional Status * Question Answer Date of Assessment Author 1. Wish to be (Past 1 Month) No 01/09/2025 6:17 AM EDT Glenny Pruett, RN 2. Non-Specific Active Suici serge Thoughts (Past 1 Month) No 01/09/2025 6:17 AM EDT Oralia Pruett RN * Calculated C-SSRS Risk Score (Lifetime/Recent) Answer Date of Assessment Author No Risk Indicated 01/09/2025 6:17 AM EDT Glenny Yu RN * [place] Suicide Severity Rating Scale (Screener/Recent Self-Report) Question Answer Date of Assessment Author 6. Suicidal Behavior (Lifetime) No 6:17 AM EDT lGenny Pruett RN documented as of this encounter [...] of this encounter note is an electronic composite assembler/translation of spoken language to printed text. The [...] obtain this. [facility] the nursing staff will instruct you on [...] this at your local pharmacy as an siot-maw-jkundyy medication. Please abide by the instructions as printedon the bottle. If your nausea persists, make sure to take small amounts of crackers or other lead nurse foods. Follow-Up Follow-up with Dr. Hood's office [...] QR code. For additional patient resources, visit [email or web address]. While your physician is your primary source for information about your treatment there may be timesduring your treatment that you need assistance with your infusion pump. If you need assistance take the following steps: The [employer] Nursing Hotline is Here for You 03/01. Please call for the following concerns or complications: Answers to questions about your infusion pump Tubing disconnect Assistance with pump alarms Dislodged catheter Excessive leakage noted from pump Inadequate pain control 2. [facility] Anesthesia Acute Pain Service: is available [...] US postal service. THIS IS PRE-PAID POSTAGE. [facility] COLD THERAPY - PATIENT INSTRUCTION [...] Your SMI Cold Therapy Wrap is effectiveand hpmfbu-is-aib, and you will be encouraged to apply [...] results, lay the Gel Bags flat and fecc-xm-nwga in the freezer. Once frozen, slide Gel [...] skin, as this maycause frostbite injury. The SMI Cold Therapy Wrap is designed to be able to be worm while ambulating. The compression straps can be secured well enough so that the Wrap won't fall off while moving. Wrap Application Videos can be viewed at [employer]. An additional protective barrier such as clothing, a washcloth, hand-towel or pillowcase may be used during prolonged treatment applications. The Gel-Pouch and Wrap are both Latex-Free and the Gel Bag ingredients are non toxic. [facility] Wrap care instructions The [facility] Cold Therapy Wrap may be hand washed and hung to dry when needed. [facility] re-order information Additional [facility] body specific wraps and/or Gel Bags can be re-ordered from [employer] or call [phone] ([phone]) * Attachments The following attachments cannot be sent through Care Everywhere. * Total Knee Replacement Surgery: What to Expect (Citizen Of [place]) * How to Use an Incentive Spirometer (Citizen Of [place]) * Oxycodone Extended-Release Tablets (Citizen Of [place]) * Acetaminophen Capsules or Tablets (Citizen Of [place]) * Meloxicam Tablets (Citizen Of [place]) * Docusate Capsules or Tablets (Citizen Of [place]) documented in this encounter Medications at Time [...] Mueller CRNA - 01/10/2025 9:02 AM EDT [facility] Acute pain service Inpatient Progress Note [...] and OPPT services when medically appropriate. (01/09/25 4601) OBJECTIVE Temp (24hrs), Av.6 ??F (36.4 ??C), [...] 01/09/2025 6:58 AM EDT Pre-Op H&P Bianca Lyudmila Berrios [id number] Chief complaint: I am here for [...] RIGHT L3-4; Surgeon: Gaston Barnard MD; Location: [facility]; Service: Neurosurgery; Laterality: Right; LUMBAR SYNOVIAL CYST REMOVAL 03/2020 RICCARDO FUNDOPLICATION History of Esophagogastric Fundoplasty Riccardo Fundoplication 2002 SALPINGO OOPHORECTOMY Bilateral SHOULDER ARTHROSCOPY W/ ROTATOR CUFF REPAIR Left 08/24/2022 Procedure: ARTHROSCOPIC ROTATOR CUFF REPAIR WITH LIMITED DEBRIDEMENT- LEFT; Surgeon: Rajesh Engel Jr., MD; Location: [facility] OR; Service: Orthopedics; Laterality: Left; SPINAL CORD STIMULATOR IMPLANT N/A 06/15/2023 Procedure: THORACIC LAMINOTOMY FOR SPINAL CORD STIMULATOR INSERTION PHASE 1; Surgeon: Gaston Barnard MD; Location: [facility] OR; Service: Neurosurgery; Laterality: N/A; UPPER GASTROINTESTINAL [...] knee Plan: TOTAL KNEE ARTHROPLASTY WITH ERIN ROBOT, RIGHT - Right Tanika Padgett PA-C 01/09/2025 [...] this time, anticipates d/c tomorrow. * Raymundo Bustamante, PT - 01/09/2025 11:17 AM EDT Goal [...] OF PROCEDURE: 01/09/2025 SURGEON: Brenton Hood M.D. ASSOCIATE PRINCIPAL(S): Ceramic Coater: Shilpi Rosario RN Scrub Person: Melany Wade RN Vendor Screen Cutter And Trimmer: Benjamin Villalobos Picker Machine Operator: Arturo Thomas PCT Him Specialist: Edenilson Stuart PA-C Orientee: Diya Uribe RN Him Specialist: Edenilson Stuart PA-C Note-PA was utilized during the case to facilitate positioning the patient, exposure, retraction, placement of final components and definitive closure. PREOPERATIVE DIAGNOSIS: Advanced degenerative joint disease of the right knee secondary to osteoarthritis POSTOPERATIVE DIAGNOSIS: same PROCEDURE: Right total Knee Arthroplasty CPT 41324, Use of computer-assisted surgical navigation system CPT 08366, 0055T CT utilization for preoperative planning of robotic total knee arthroplasty SURGICAL DETAILS: APPROACH: Medial parapatellar ANESTHESIA: Spinal plus local periarticular PREOPERATIVE ANTIBIOTICS: Ancef 2 g IV TRANEXAMIC ACID: IV TOURNIQUET TIME: 52 min @2 300 mmHg ESTIMATED BLOOD LOSS: 25 cc SPECIMENS: None IMPLANTS: Travel Accommodation Inspector/Brand: [place] triathlon Tibial component size: 2 pressfit tritanium [...] and posterior chamfers were completed. A lamina traveling phlebotomist was placed with the knee in 90 [...] Surgeon(s): Brenton Hood MD Anesthesia: Spinal Staff: Ceramic Coater: Shilpi Rosario RN Scrub Person: Melany Wade RN Vendor Screen Cutter And Trimmer: Benjamin Villalobos Picker Machine Operator: Arturo Thomas PCT Him Specialist: Edenilson Stuart PA-C Orientee: Diya Uribe RN Him Specialist: Edenilson Stuart PA-C Estimated Blood Loss: 25 mL Urine Voided: * No values recorded between 01/09/2025 7:19 AM and 01/09/2025 8:38 AM * Specimens: None Drains: * No LDAs found * Findings: Advanced tricompartmental osteoarthritis with genu varum alignment Complications: None apparent Him Specialist: Edenilson Stuart PA-C was responsible for [...] ERIN ROBOT; Surgeon: Brenton Hood MD; Location: [facility]; Service: Robotics - Ortho; Laterality: [...] Cognition Orientation Status (Cognition) oriented x 3 -[facility] Name 01/10/25 1134 Safety Issues/Impairments Affecting Functional Mobility Safety Issues Affecting Function (Mobility) insight into deficits/self- awareness;safety precaution awareness;safety precautions follow- through/compliance - Impairments Affecting Function (Mobility) endurance/activity tolerance;pain;strength - User Goins (r) = Recorded By, (t) = Taken By, (c) = Cosigned By Initials Name Provider Type Nae Marquez, LENA Physical Therapist Mobility Row Name 01/10/25 1135 Bed Mobility Comment, (Bed Mobility) UIC pre/post tx -[facility] Name 01/10/25 1135 Transfers Comment, (Transfers) VCs for hand placement and sequencing. Cues to step out RLE prior to transfersfor comfort -[facility] Name 01/10/25 1135 Sit-Stand Transfer Sit-Stand Talbot (Transfers) contact guard;verbal cues - Assistive Device (Sit-Stand Transfers) walker, front-wheeled -[facility] Name 01/10/25 1135 Gait/Stairs (Locomotion) Talbot Level (Gait) contact guard;verbal cues - Assistive [...] Type Nae Marquez PT Physical Therapist Obj/Interventions [facility] Name 01/10/25 113 Range of Motion Comprehensive General Range of Motion lower extremity range of motion deficits identified - Comment, General Range of Motion R knee AROM: 7-70 -[facility] Name 01/10/25 113 Strength Comprehensive (MMT) General Manual Muscle Testing (MMT) Assessment lower extremity strength deficits identified -[facility] Name 01/10/25 113 Motor Skills Therapeutic Exercise knee;ankle -[facility] Name 01/10/25 113 Knee (Therapeutic Exercise) Knee (Therapeutic Exercise) isometric exercises;strengthening exercise - Knee Isometrics (Therapeutic Exercise) right;quad sets;10 repetitions - Knee Strengthening (Therapeutic Exercise) right;heel slides;SLR (straight leg raise);SAQ (short arcquad);LAQ (long arc quad);10 repetitions -[facility] 01/10/25 113 Ankle (Therapeutic Exercise) Ankle (Therapeutic Exercise) AROM (active range of motion) - Ankle AROM (Therapeutic Exercise) bilateral;dorsiflexion;plantarflexion;10 repetitions -[facility] Name 01/10/25 113 Balance Balance Assessment sitting static [...] Physical Therapist Goals/Plan No documentation. Clinical Impression [facility] Name 01/10/25 113 Pain Pretreatment Pain Rating 4/10 - Posttreatment Pain Rating 3/10 - Pain Location knee - Pain Side/Orientation right;posterior - Pain Management Interventions activity modification encouraged;exercise or physical activity utilized;positioning techniques utilized;cold applied - Response to Pain Interventions activity level improved;functional ability improved;activity participation with decreased pain -[facility] Name 01/10/25 113 Plan of Care Review Plan of Care [...] assist and OP PT once medically appropriate. - Row Name 01/10/25 1138 Therapy Assessment/Plan (PT) Therapy Frequency (PT) 2 times/day - Row Name 01/10/25 1138 Positioning and Restraints Pre-Treatment [...] of Mobility Goal Walk 10 Steps or More- - Row Name 01/10/25 1140 01/10/25 1013 Functional Assessment Outcome Measure Options AM-PAC 6 Clicks Basic Mobility (PT) - AM-PAC 6 Clicks Daily Activity (OT)- User Goins (r) = Recorded By, (t) = Taken By, (c) = Cosigned By Initials Name Provider Type Niurka Green, OT Occupational Therapist Nae Marquez, PT Physical Therapist Physical Therapy Education Title: PT OT ENGINEERING PROGRAM MANAGER Therapies (Done) Topic: Physical Therapy (Done) Point: Mobility training (Done) Learning Progress Summary Patient Acceptance, E, NANDINI,DU by at 01/10/2025 1140 Point: Home exercise program (Done) Learning Progress Summary Patient Acceptance, E, VU,DU by at 01/10/2025 1140 Point: Body mechanics (Done) Learning Progress Summary Patient Acceptance, E, VU,DU by at 01/10/2025 1140 Point: Precautions (Done) Learning Progress Summary Patient Acceptance, E, VU,DU by at 01/10/2025 1140 User Goins Initials Effective Dates Name Provider Type [facility] 03/03/23 - Nae Marquez, PT Physical Therapist [...] Re-Cert Due Date 01/19/25 - Timed Charges 92417 - PT Therapeutic Exercise Minutes 13 - 50854 - Gait Training Minutes 15 - Total Minutes Timed Charges Total Minutes 28 - Total Minutes 28 - User Goins (r) = Recorded By, (t) = Taken By, (c) = Cosigned By Initials Name Provider Type Nae Marquez, PT Physical Therapist Therapy Charges for Today Code Description Service Date Service Provider Modifiers Qty [id number] HC PT THER PROC EA 15 MIN 01/10/2025 Nae Marquez, PT GP 1 [id number] HC GAIT TRAINING EA 15 MIN 01/10/2025 [...] TOTAL KNEE ARTHROPLASTY WITH ERIN ROBOT; Surgeon: Brenotn Hood MD; Location: [facility]; Service: Robotics [...] = Cosigned By Initials Name Provider Type Baiclio Niurka, OT Occupational Therapist Mobility/ADL's Row Name 01/10/25 1004 Bed Mobility Comment, (Bed Mobility) Pt received up in bathroom. -MR Row Name 01/10/25 1004 Transfers Transfers sit-stand transfer;toilet transfer -MR Row Name 01/10/25 1004 Sit-Stand Transfer Sit-Stand Talbot (Transfers) contact guard;verbal cues;nonverbal cues (demo/gesture) -MR Assistive Device (Sit-Stand Transfers) walker, front-wheeled -MR Row Name 01/10/25 1004 Toilet Transfer Type (Toilet Transfer) sit-stand;stand-sit -MR Talbot Level (Toilet Transfer) contact guard -MR Assistive Device (Toilet Transfer) commode;walker, front-wheeled -MR Row Name 01/10/25 1004 Functional Mobility Functional Mobility- Ind. Level supervision required -MR Functional Mobility- Device walker, front-wheeled -MR Functional Mobility-Distance (Feet) -- > HH distances -MR Row Name 01/10/25 1004 Activities of Daily Living BADL Assessment/Intervention lower body dressing;toileting;grooming;bathing -MR Row Name 01/10/25 1004 Lower Body Dressing Assessment/Training Talbot Level (Lower Body Dressing) lower body dressing skills -MR Comment, (Lower Body Dressing) Patient educated on sequencing for LB dressing and nerve cath management to prevent accidental dislodgement. -MR Row Name 01/10/25 1004 Toileting Assessment/Training Talbot Level (Toileting) adjust/manage clothing;perform perineal hygiene;supervision -MR Assistive Devices (Toileting) commode -MR Position (Toileting) unsupported sitting;unsupported standing -MR Row Name 01/10/25 1004 Grooming Assessment/Training Talbot Level (Grooming) wash face, hands;oral care regimen;supervision -MR Position (Grooming) unsupported standing -MR Row Name 01/10/25 1004 Bathing Assessment/Intervention Talbot Level (Bathing) bathing skills -MR Comment, (Bathing) Patient educated on bathing and waiting until nerve cath has been discontinued and once cleared by surgeon. -MR User Goins (r) = Recorded By, (t) = Taken By, (c) = Cosigned By Initials Name Provider Type Niurka Green OT Occupational Therapist Obj/Interventions Row Name 01/10/25 [...] Provider Type Niurka Green OT Occupational Therapist Goals/Plan Row Name 01/10/25 1012 Bed Mobility Goal 1 (OT) Activity/Assistive Device (Bed Mobility Goal 1, OT) sit to supine;supine to sit -MR Talbot Level/Cues Needed (Bed Mobility Goal 1, OT) standby assist -MR Time Frame (Bed Mobility Goal 1, OT) short term goal (STG);3 days -MR Progress/Outcomes (Bed Mobility Goal 1, OT) new goal -MR Row Name 01/10/25 1012 Dressing Goal 1 (OT) Activity/Device (Dressing Goal 1, OT) lower body dressing -MR Talbot/Cues Needed (Dressing Goal 1, OT) minimum assist (75% or more patient effort) -MR Time Frame (Dressing Goal 1, OT) group home goal (LTG);5 days -MR Progress/Outcome (Dressing Goal 1, OT) new goal -MR Row Name 01/10/25 1012 Grooming Goal 1 (OT) Activity/Device (Grooming Goal 1, OT) grooming skills, all -MR Talbot (Grooming Goal 1, OT) independent -MR Time Frame (Grooming Goal 1, OT) rn long term care goal (LTG);5 days -MR Strategies/Barriers (Grooming Goal [...] Anticipated Discharge Disposition (OT) home with assist - Row Name 01/10/25 1007 Vital Signs O2 [...] Therapist Occupational Therapy Education Title: PT OT ENGINEERING PROGRAM MANAGER Therapies (In Progress) Topic: Occupational Therapy (Done) [...] Cosigned By Initials Name Provider Type MR Bacilio Niurka, DENA Occupational Therapist Therapy Charges for Today Code Description Service Date Service Provider Modifiers Qty [id number] HC-OT EVAL LOW COMPLEXITY 5 01/10/2025 Niurka Ribera OT 1 Niurka Ribera OT 01/10/2025 * Case Management/Social Work - Ailyn Richards RN - 01/09/2025 11:56 AM EDT Continued Stay Note Gilda Patient Name: Bianca Berrios Today's Date: 01/09/2025 Admit Date: 01/09/2025 Plan: home with outpt PT Discharge Plan Row Name 01/09/25 1155 Plan Plan home with outpt PT Patient/Family in Agreement with Plan yes Plan Comments Pt lives in [facility] with her . She was independent with ADLs and mobility prior to admit. She owns a rolling walker. Pt is followed by her PCP and has drug coverage. At this time her plan for discharge is to return home. [facility]. No other dc needs at this time Final Discharge Disposition Code 01 - home or self-care Discharge Codes No documentation. Ailyn Richards RN * Therapy Evaluation - Raymundo Bustamante, PT - 01/09/2025 11:17 AM EDT Images [...] ENDOSCOPY 03/20/19 General Information Row Name 01/09/25 1347 Physical Therapy Time and Intention Document Type evaluation -AE Mode of Treatment physical therapy -AE Row Name 01/09/25 1347 General Information Patient Profile Reviewed yes -AE Prior Level of Function independent:;all household mobility;gait;transfer;bed mobility;ADL's;dressing;bathing Has RW at home. -AE Existing Precautions/Restrictions fall;other (see comments) R TKA, WBAT; adductor canal nerve cath -AE Barriers to Rehab medically complex -AE Row Name 01/09/25 1347 Living Environment Current Living Arrangements home -AE People in Home spouse -AE Row Name 01/09/25 1347 Home Main Entrance Number of Stairs, Main Entrance other (see comments) ramp to enter -AE Stair Railings, Main Entrance none -AE Row Name 01/09/25 1347 Stairs Within Home, Primary Number of Stairs, Within Home, Primary none -AE Stair Railings, Within Home, Primary none -AE Row Name 01/09/25 134 Cognition Orientation Status (Cognition) oriented x 3 -AE Row Name 01/09/25 1346 Safety Issues/Impairments Affecting Functional Mobility Safety Issues Affecting Function (Mobility) sequencing abilities;safety precaution awareness -AE Impairments Affecting Function (Mobility) endurance/activity tolerance;pain;strength -AE Comment, Safety Issues/Impairments (Mobility) Dizziness initially -AE User Goins (r) = Recorded By, (t) = Taken By, (c) = Cosigned By Initials Name Provider Type AE Raymundo Bustamante PT Physical Therapist Mobility Row Name 01/09/25 1125 Bed Mobility Bed Mobility supine-sit -AE Supine-Sit Talbot (Bed Mobility) minimum assist (75% patient effort);1 person assist;verbal cues -AE Comment, (Bed Mobility) Increased assist needed to advance RLE to EOB. -AE Row Name 01/09/25 112 Transfers Comment, (Transfers) VCs for hand placement and sequencing. No knee buckling noted with transfers. -AE Row Name 01/09/25 112 Sit-Stand Transfer Sit-Stand Talbot (Transfers) contact guard;2 person assist;verbal cues -AE Assistive Device (Sit-Stand Transfers) walker, front-wheeled -AE Row Name 01/09/25 1125 Gait/Stairs (Locomotion) Talbot Level (Gait) contact guard;1 person assist;1 person [...] Type AE Raymundo Bustamante PT Physical Therapist Obj/Interventions Row Name 01/09/25 145 Range of Motion Comprehensive General Range of Motion lower extremity range of motion deficits identified -AE Comment, General Range of Motion RLE 10-75 -AE Row Name 01/09/25 145 Strength Comprehensive (MMT) General Manual Muscle Testing (MMT) Assessment lower extremity strength deficits identified -AE Comment, General Manual Muscle Testing (MMT) Assessment LLE 4/5; did not formally assess RLE -AE Row Name 01/09/25 145 Motor Skills Therapeutic Exercise -- Educated patient on HEP and completed 1-2 reps of each -AE Row Name 01/09/25 145 Balance Balance Assessment sitting static balance;sitting dynamic [...] Type AE Raymundo Bustamante PT Physical Therapist Goals/Plan Row Name 01/09/25 1502 Bed Mobility Goal 1 (PT) Activity/Assistive Device (Bed Mobility Goal 1, PT) sit to supine/supine to sit -AE Talbot Level/Cues Needed (Bed Mobility Goal 1, PT) modified independence -AE Time Frame (Bed Mobility Goal 1, PT) 3 days;short term goal (STG) -AE Row Name 01/09/25 1502 Transfer Goal 1 (PT) Activity/Assistive Device (Transfer Goal 1, PT) [id number] -AE Talbot Level/Cues Needed (Transfer Goal 1, PT) modified independence -AE Time Frame (Transfer Goal 1, PT) group home goal (LTG);5 days -AE Row Name 01/09/25 1502 Gait Training Goal 1 (PT) Activity/Assistive Device (Gait Training Goal 1, PT) gait (walking locomotion);assistive device use-AE Talbot Level (Gait Training Goal 1, PT) modified independence -AE Time Frame (Gait Training Goal 1, PT) group home goal (LTG);5 days -AE Row Name 01/09/25 [...] Physical Therapist Clinical Impression Row Name 01/09/25 0712 Pain Pain Location knee -AE Pain Side/Orientation right -AE Pain Management Interventions activity modification encouraged;exercise or physical activity utilized;nursing notified -AE Response to Pain Interventions activity participation with increased pain -AE Additional Documentation Pain Scale: FACES Pre/Post-Treatment (Group) -AE Row Name 01/09/25 5296 Pain Scale: FACES Pre/Post-Treatment Pain: FACES Scale, Pretreatment 2-->hurts little bit -AE Posttreatment Pain Rating 4-->hurts little more -AE Row Name 01/09/25 3132 Plan of Care Review Plan of Care [...] Physical Therapist Outcome Measures Row Name 01/09/25 1503 How much help from another person do [...] By Initials Name Provider Type AE Raymundo Bustamnate PT Physical Therapist Physical Therapy Education Title: PT OT ENGINEERING PROGRAM MANAGER Therapies (In Progress) Topic: Physical Therapy (Not [...] Description Service Date Service Provider Modifiers Qty [id number] HC PT EVAL LOW COMPLEXITY 5 01/09/2025 Raymundo Bustamante, PT 1 [id number] HC PT THER SUPP EA 15 MIN 01/09/2025 Raymundo Bustamante, PT GP 3 PT G-Codes Outcome Measure Options: PADD, AM-PAC 6 Clicks Basic Mobility (PT) AM-PAC 6 Clicks Score (PT): 18 PT Discharge Summary Anticipated Discharge Disposition (PT): home with assist, home with outpatient therapy services Raymundo Bustamante, LENA 01/09/2025 documented in this encounter Plan of Treatment Upcoming Encounters Date Type Department Care Team (Late st Contact Info) Description 03/01/2025 11:00 AM EDT Appointment [facility] [address] [facility] [address] [place] [id number] 03/01/2025 2:00 PM EDT Office Visit [facility] NEUR[facility] [address] [facility] [address] [place] [id number] Gaston Barnard MD [address] [facility] [address] [place] [address] 04/16/2025 1:00 PM EST Office Visit [facility]INE [address] [facility] [address] [place] [address] Brenton Hood MD [address] [facility] [address] [place] [address] 05/20/2025 3:00 PM EST Office Visit [facility] NEUROLOGY [address] [facility] [address] [place] [phone] Casi Starr, DEVON [address] [facility] [address] [place] [id number] documented as of this encounter Goals Goal [...] VW RIGHT STAT 01/09/2025 10:52 AM EDT MD ARTHRP KNE CONDYLE&PLATU MEDIAL&LAT COMPARTMENTS 01/09/2025 7:04 AM EDT Primary osteoarthritis of right knee Special Needs SUPINE, TRIATHALON CR POCT GLUCOSE FINGERSTICK Routine 01/09/2025 6:35 AM EDT POTASSIUM Urgent 01/09/2025 6:34 AM EDT documented in this encounter Results * (ABNORMAL) Basic Metabolic Panel (01/10/2025 7:53 AM EDT) Glucose 122(H) 65 - 99 mg/dL 01/10/2025 11:00 AM EDT [facility] BUN 14.9 8.0 - 23.0 mg/dL 01/10/2025 11:00 AM EDT [facility] Creatinine 0.77 0.57 - 1.00 mg/dL 01/10/2025 11:00 AM EDT [facility] Sodium 132(L) 136 - 145 mmol/L 01/10/2025 11:00 AM EDT [facility] Potassium 3.7 3.5 - 5.2 mmol/L 01/10/2025 11:00 AM EDT [facility] Chloride 95(L) 98 - 107 mmol/L 01/10/2025 11:00 AM EDT [facility] CO2 28.4 22.0 - 29.0 mmol/L 01/10/2025 11:00 AM EDT [facility] Calcium 9.2 8.6 - 10.5 mg/dL 01/10/2025 11:00 AM EDT [facility] BUN/Creatinine Ratio 19.4 7.0 - 25.0 01/10/2025 11:00 AM EDT [facility] Anion Gap 8.6 5.0 - 15.0 mmol/L 01/10/2025 11:00 AM EDT [facility] eGFR 83.1 >60.0 mL/min/1.7 3 01/10/2025 11:00 AM EDT [facility] Blood Venipuncture / Unknown 01/10/2025 7:53 AM EDT 01/10/2025 10:16 AM EDT [facility] - 01/10/2025 11:00 AM EDT GFR [...] Hood MD LAB BLOOD ORDERABLES Final Result [facility]
[address] [place] [address], * (ABNORMAL) CBC (No Diff) (01/10/2025 7:53 AM EDT) WBC 14.13(H) 3.40 - 10.80 10*3/mm3 01/10/2025 10:23 AM EDT [facility] RBC 4.12 3.77 - 5.28 10*6/mm3 01/10/2025 10:23 AM EDT [facility] Hemoglobin 12.6 12.0 - 15.9 g/dL 01/10/2025 10:23 AM EDT [facility] Hematocrit 37.7 34.0 - 46.6 % 01/10/2025 10:23 AM EDT [facility] MCV 91.5 79.0 - 97.0 fL 01/10/2025 10:23 AM EDT [facility] MCH 30.6 26.6 - 33.0 pg 01/10/2025 10:23 AM EDT [facility] MCHC 33.4 31.5 - 35.7 g/dL 01/10/2025 10:23 AM EDT [facility] RDW 13.8 12.3 - 15.4 % 01/10/2025 10:23 AM EDT [facility] RDW-SD 46.9 37.0 - 54.0 fl 01/10/2025 10:23 AM EDT [facility] MPV 9.1 6.0 - 12.0 fL 01/10/2025 10:23 AM EDT [facility] Platelets 247 140 - 450 10*3/mm3 01/10/2025 10:23 AM EDT [facility] Blood Venipuncture / Unknown 01/10/2025 7:53 AM EDT 01/10/2025 10:16 AM EDT [facility] LAB BLOOD ORDERABLES Final Result [facility]
[address] [place] [address], * XR Knee 1 or 2 View Right (01/09/2025 10:52 AM EDT) Anatomical Region Laterality Modality Lower Extremities, Knee Right Radiogra phic Imaging 01/09/2025 11:0 9 AM EDT Impressions 01/09/2025 11:09 AM EDT Impression: Expected changes of recent total knee arthroplasty. Electronically Signed: Dann Schwab MD 01/09/2025 11:09 AM EDT Workstation ID: [id number] Narrative 01/09/2025 11:09 AM EDT XR KNEE [...] MD 01/09/2025 11:09 AM EDT Workstation ID: [id number] Brenton Hood MD IMG DIAGNOSTIC IMAGING ORDE RABINDIRA Final Result * POC Glucose Once (01/09/2025 6:35 AM EDT) Glucose 85 70 - 130 mg/dL 01/09/2025 6:36 AM EDT [facility] Blood 01/09/2025 6:35 AM EDT 01/09/2025 6:36 AM EDT Brenton Hood MD POINT OF CARE TEST ORDERABL ES Final Result [facility]
[address] [place] [address], * Potassium (01/09/2025 6:34 AM EDT) Potassium 3.9 3.5 - 5.2 mmol/L 01/09/2025 6:53 AM EDT [facility] Blood Line / Unknown 01/09/2025 6: 34 AM EDT 01/09/2025 6:34 AM EDT Maurice Brownlee MD LAB BLOOD ORDERABLES Final Resu lt [facility]
[address] [place] [address], documented in this encounter Visit Diagnoses Diagnosis Primary osteoarthritis of right knee S/P TKR (total knee replacement), right Primary osteoarthritis of right knee Arthritis of knee Unspecified arthropathy, lower leg Primary osteoarthritis of right knee documented in this encounter Admitting Diagnoses Diagnosis [...] Given 01/09/2025 5:42 PM EDT 40 mg povidone iodine (SURGIPHOR) 0.05 % in sodium chloride As Needed, Starting on Tue01/09/25 at 0739 Given 01/09/2025 7:39 AM EDT 450 mL pregabalin (LYRICA) capsule 75 mg 75 mg, Oral, Once, On Tue01/09/25 at 0607, For 1 dose, (JANNETTE)Indications:Primary osteoarthritis of right knee Given 01/09/2025 6:37 AM EDT 75 mg ropivacaine (NAROPIN) 0.2 % infusion (INFUSYSTEM) Peripheral Nerve, Continuous, Starting on Tue01/09/25 at 0852, If pain greater than 7 out of 10, please notify the Questioned Documents Examiner Provider at [phone](messages go to beeper service). Thank you If Pt. Has a Hip Fx block(Fascia Iliacus), please remove Block Catheter prior to Discharge, Basal Rate: 1 mL/hr, Programmed Intermittent Bolus (PIB): 8 mL, PIB Lockout Interval: 120 min, FEATURES REPORTER Bolus: 8 mL, FEATURES REPORTER Lockout Interval: 30 min New Bag 01/09/2025 9:40 AM EDT 1,000 mg rosuvastatin (CRESTOR) tablet 20 mg 20 mg, Oral, Nightly, First dose on Tue01/09/25 at 2100, Avoid grapefruit juice. Given 01/09/2025 8:10 PM EDT 20 mg sodium chloride (NS) irrigation solution As Needed, Starting on Tue01/09/25 at 0739 Given 01/09/2025 7:39 AM EDT 3,000 mL sodium chloride 0.9 % bolus 500 mL [...] Given 01/09/2025 8:11 PM EDT 3 mL sodium chloride 20 mL, lidocain 0.5%-EPINEPHrine [id number] 20 mL, ropivacaine 0.5 % 20 mL, ketorolac 30 mg, Morphine sulfate (PF) 2 mL mixture As Needed, Starting on Tue01/09/25 at 0807 Given 01/09/2025 8:07 AM EDT 63 mL Knee Right documented in this encounter Active and Recently [...] Trina Zhang RN)2310 (Given - Provider: Kala Velasquez RN) 0600 (Given - Provider: Kala Velasquez RN)1401 (Given - Provider: Trina Zhang RN) amLODIPine [...] of 7-10, CPOT 5-8, Indications: VTE Prophylaxis 0936 (Given - Provid er: Trina Zhang RN) [...] Zhang RN)2310 (New Bag - Provider: Kala Velasquez, ZOHREH) DULoxetine (CYMBALTA) DR capsule 60 mg 60 [...] chew capsule. 2009 (Given - Provider: Kala Velasquez, ZOHREH) ethyl alcohol 62 % 2 each (COMPLETED) [...] left nostril. 0638 (Given - Provider: Glenny Pruett RN) famotidine (PEPCID) tablet 20 mg (COMPLETED) 20 [...] or chew. 2009 (Given - Provider: Kala Velasquez, ZOHREH) pantoprazole (PROTONIX) EC tablet 40 mg 40 mg, Oral, Daily, First dose on Tue01/09/25 at 1645, Do not crush or chew the capsules or tablets. The drug may not work as designed if the capsule or tablet is crushed or chewed. Swallow whole. Swallow whole; do not crush, split, or chew. 1742 (Given - Provider: Trina Zhang RN) 0936 (Given - Provider: Trina Zhang RN) pregabalin (LYRICA) capsule 75 mg (COMPLETED) 75 mg, Oral, Once, On Tue01/09/25 at 0607, For 1 dose, (JANNETTE) 0637 (Given - Provider: Glenny Pruett RN) rosuvastatin (CRESTOR) tablet 20 mg 20 mg, Oral, Nightly, First dose on Tue01/09/25 at 2100, Avoid grapefruit juice. 2009 (Given - Provider: Kala Velasquez RN) sodium chloride 0.9 % flush 3 mL [...] 7 out of 10, please notify the Questioned Documents Examiner Provider at [phone](messages go to beeper service). Thank you If Pt. Has a Hip Fx block(Fascia Iliacus), please remove Block Catheter prior to Discharge, Basal Rate: 1 mL/hr, Programmed Intermittent Bolus (PIB): 8 mL, PIB Lockout Interval: 120 min, FEATURES REPORTER Bolus: 8 mL, FEATURES REPORTER Lockout Interval: 30 min 0940 (New Bag - Provider: Ana María Oscar RN) 0765 (Due: Order Ending - Provider: Automatic Discharge [...] 5-8 1231 (Given - Provider: Trina Zhang RN)202 (Given - Provider: Kala Velasquez RN) 0629 (Given - Provider: Kala Velasquez RN)1402 (Given - Provider: Trina Zhang [...] 1119 sodium chloride 20 mL, lidocain 0.5%-EPINEPHrine [id number] 20 mL, ropivacaine 0.5 % 20 mL, [...] documented as of this encounter Care Teams Small Stock Facer Relationship Specialty Start Date End Date Js Jack MD [address] [place], [place] [id number] PCP - General 01/27/15 documented as of this encounter
--- OUTSIDE RECORDS SUMMARY | 2025-01-09 07:18 | XMS_ITS | Encounter Summary ---
Author Organization [facility] ystem Address [address] [place] [address] Care Team Providers Care School Principal Name Role Phone Js Jack MD Primary Care Provider [phone] Reason for Visit * Auth/Cert Specialty Diagnoses / Procedures Referred By Contac t Referred To Contact Diagnoses Primary osteoarthritis of right knee Primary osteoarthritis of right knee [M17.11] Procedures NH ARTHRP KNE CONDYLE&PLATU MEDIAL&LAT COMPARTMENTS TOTAL KNEE ARTHROPLASTY WITH RIGHT Referral ID Status Reason Start Date Expiration Date Visits Re quested Visits Authorized [id number] 1 1 Encounter Details Date Type Department Care Team (Late st Contact Info) Description 01/09/2025 7:18 AM EDT Anesthesia Event [facility] OR [address] [place] [address] Maurice Brownlee MD [address] [place] [id number] Anesthesia Record Procedure Summary Procedure Name Responsible Anesthesiologist Anesthesia Start Time Anesthesia Stop Time TOTAL KNEE ARTHROPLASTY WITH ERIN ROBOT (Right: Knee) Maurice Brownlee MD 01/09/25 0718 01/09/25 0921 Events Date Time Event Comment 01/09/2025 0620 AN Equip Check 0641 0718 An Start The patient was reevaluated immediately before moderate or deep sedation use and before anesthesia induction. 0718 An Start Data 0722 Spinal Placed 0739 An Tourn Inflated 0747 Quick Note 0831 An Tourn Deflated 0916 an stop data 0921 Handoff to RN The following has been completed: 1. Identification of Patient, hamilton family member(s) or patient surrogate 2. Identification of the responsible Practitioner (primary service) 3. Discussion of the pertinent/attainable medical history 4. Discussion of the surgical/procedure course (procedure, reason for surgery, procedure performed) 5. Intraoperative anesthetic management and issue/concerns to include things such as airway, hemodynamics, narcotic, sedation level and paralytic management and intravenous fluids/blood products and urine output during the procedure 6. Expectations/Plans for the early post-procedure period to include things such as anticipated course (anticipatory guidance), complications, need for laboratory or ECG and medication administration 7. Opportunity for questions and acknowledgment of understanding of report from the receiving PACU/ICU team 0921 An Stop 0922 Block Placed Meds Name Total propofol (DIPRIVAN) infusion 10 mg/mL 10 0 mL 921.44 mg phenylephrine 1000 MCG/10ML 400 mcg ePHEDrine Sulfate (Pressors) 50 MG/ML 30 mg dexAMETHasone 4 MG/ML 8 mg ondansetron 2 mg/mL 4 mg Mepivacaine HCl (PF) (CARBOCAINE) 1.5 % injection 4 mL ceFAZolin 2000 mg IVPB in 100 mL NS (MBP ) 2 g tranexamic acid 1000 mg in 100 mL 0.7% N aCl infusion (premix) 2,000 mg phenylephrine (DESIREE-SYNEPHRIN E) 10 mg in sodium chloride 0.9 % 100 mL infusion 1,870 mcg fentaNYL citrate (PF) 100 MCG/2ML 25 mcg bupivacaine PF (MARCAINE) 0.25 % injecti on 20 mL lactated ringers infusion 1,000 mL * Agents Name O2 N2O Air Sevoflurane Inspired Sevoflurane * Blood No blood administrations on file. Lines, Drains, and Airways Type Details Placement Removal Wound 01/09/25; Right; low er; leg; Surgical 01/09/25 0000 by Diya Uribe RN Wound 01/09/25; 0740; Righ t; anterior; knee; Surgical 01/09/25 0740 by Diya Uribe, ZOHREH Nerve Block 01/09/25; 0910 (ann steele via procedure documentation); Hans Garcia CRNA; right; adductor canal block 01/09/25 0910 by Hans Garcia CRNA Peripheral IV Placement Date: 12/13 ; Placement Time: 627; Catheter Size: 18 G; Orientation: Distal, Left, Posterior; Location: Forearm; Site Prep: Chlorhexidine; Local Anes: Injectable (Lidocaine); Technique: Anatomical landmarks; Inserted by: Glenny Pruett RN; Insertion Attempts: 1; Patient Tolerance: Tolerated well; Removal Date: 01/10/25; Removal Time: 151801/09/25627 by Glenny Pruett RN 01/10/251518 by Trina Zhang RN documented in this encounter Social History Tobacco Use Types Packs/Day Years [...] or training? Not on file Preferred Language Maltese 12/26/2024 PHQ-2 Answer Date Recorded Retired PHQ-9: Brief Depression Severity Measure Score 0 01/10/2024 Comments No Sex and Gender Information Value Date Recorded Sex Assigned at Female 01/28/2025 9:25 PM EDT Legal Sex Female 10:01 AM EDT Gender Identity Not on file Sexual Orientation Not on file documented as of this encounter Functional Status * Question Answer Date of Assessment Author 1. Wish to be (Past 1 Month) No 01/09/2025 6:17 AM EDT Glenny Pruett, RN 2. Non-Specific Active Suici serge Thoughts (Past 1 Month) No 01/09/2025 6:17 AM EDT Oralia Pruett, ZOHREH * Calculated C-SSRS Risk Score (Lifetime/Recent) Answer Date of Assessment Author No Risk Indicated 01/09/2025 6:17 AM EDT Glenny Yu RN * [place] Suicide Severity Rating Scale (Screener/Recent Self-Report) Question Answer Date of Assessment Author 6. Suicidal Behavior (Lifetime) No 6:17 AM EDT Glenny Pruett, ZOHREH documented as of this encounter OR Notes * Anesthesia Postprocedure Evaluation - Ryan Mondragon CRNA - 01/09/2025 9:21 AM EDT Patient: Bianca Berrios Procedure Summary Date: 01/09/25 Room / Location: [facility] OR [address] [place] [address] OR Anesthesia Start: 717 Anesthesia Stop: 920 Procedure: TOTAL KNEE ARTHROPLASTY WITH ERIN ROBOT, RIGHT (Right: Knee) Diagnosis: Primary osteoarthritis of right knee (Primary osteoarthritis of right knee [M17.11]) Surgeons: Brenton Hood MD Provider: Maurice Brownlee MD Anesthesia Type: spinal, regional ASA Status: 2 Anesthesia Type: spinal, regional Vitals No vitals data found for the desired time range. Post Anesthesia Care and Evaluation Patient location during evaluation: PACU Patient participation: complete - patient participated Level of consciousness: awake and alert Pain management: adequate Airway patency: patent Anesthetic complications: No anesthetic complications PONV Status: none Cardiovascular status: hemodynamically stable and acceptable Respiratory status: nonlabored ventilation, acceptable and nasal cannula Hydration status: acceptable Post Neuraxial Block status: No signs or symptoms of PDPH * Anesthesia Procedure Notes - Ryan Mondragon CRNA - 01/09/2025 9:09 AM EDT Associated Order(s): Peripheral Block Peripheral Block Pre-sedation assessment completed: 01/09/2025 9:22 AM Patient reassessed immediately prior to procedure Patient location during procedure: post-op Start time: 01/09/2025 9:22 AM Stop time: 01/09/2025 9:22 AM Reason for block: at surgeon's request and post-op pain management Performed by HOTEL YARDPERSON/CAA: Hans Garcia, HOTEL YARDPERSON Assisted by: Casi Snow RN Preanesthetic Checklist Completed: patient identified, IV checked, site marked, risks and benefits discussed, surgical consent, monitors and equipment checked, pre-op evaluation and timeout performed Prep: Pt Position: supine Sterile barriers:cap, gloves, mask, sterile barriers and washed/disinfected hands Prep: ChloraPrep Patient monitoring: blood pressure monitoring, continuous pulse oximetry and EKG Procedure Performed under: spinal Guidance:ultrasound guided ULTRASOUND INTERPRETATION. Using ultrasound guidance a 20 G gauge needle was placed in close proximity to the nerve, at which point, under ultrasound guidance anesthetic was injected in the area of the nerve and spread of the anesthesia was seen on ultrasound in close proximity thereto. There were no abnormalities seen on ultrasound; a digital image was taken; and the patient tolerated the procedure with no complications. Images:still images obtained, printed/placed on chart Laterality:right Block Type:adductor canal block Injection Technique:catheter Needle Type:Tuohy and echogenic Needle Gauge:18 G Resistance on Injection: none Catheter Size:20 G (20g) Medications Used: bupivacaine PF (MARCAINE) 0.25 % injection - Injection 20 mL - 01/09/2025 9:22:00 AM Medications Preservative Free Saline:10ml Post Assessment Injection Assessment: negative aspiration for heme, incremental injection and no paresthesia on injection Patient Tolerance:comfortable throughout block Complications:no Additional Notes CATHETER A high-frequency linear transducer, with sterile cover, was placed on the anterior mid-thigh (between the anterior superior iliac spine and patella). The transducer was then moved medially to identify the Sartorius muscle (Brittanie), Vastus Medialis muscle (VMM), Superficial Femoral Artery (SFA) and Vein. The transducer was then moved cephalad or caudad to position the SFA in the middle of the Brittanie. The insertion site was prepped and draped in sterile fashion. Skin and cutaneous tissue was infiltrated with 2-5 ml of 1% Lidocaine. Using ultrasound-guidance, an 18-gauge Contiplex Ultra 360 Touhy needle was advanced in plane from lateral to medial. Preservative-free normal saline was utilized for hydro-dissection of tissue, advancement of Touhy, and to confirm needle placement below the fascial plane of the Brittanie where the Nerve to the VMM is located. Local anesthetic (LA) 5 ml deposited here. TheTouhy needle continues its path lateral to the SFA at the level of the Saphenous Nerve. The remainder of the LA was deposited at the 10-11 o'clock position of the SFA. This injection created a space between the Brittanie and the SFA. Aspiration every 5 ml to prevent intravascular injection. Injection wascompleted with negative aspiration of blood and negative intravascular injection. Injection pressures were normal with minimal resistance. A 20-gauge Contiplex Echo catheter was placed through the needle and advance out the tip of the Touhy 3-5 cm anterior to the SFA. The Touhy needle was then removed, and final catheter position verified at the 12 o'clock position to the SFA. The catheter was secured in the usual fashion with skin glue, benzoin, steri-strips, CHG tegaderm and label noting Nerve Block Catheter . Jerk tape applied at yellow connector and catheter connection. Performed by: Hans Garcia CRNA * Anesthesia Procedure Notes - Ryan Mondragon CRNA - 01/09/2025 7:41 AM EDT Associated Order(s): Spinal Block Spinal Block Pre-sedation assessment completed: 01/09/2025 7:19 AM Patient reassessed immediately prior to procedure Patient location during procedure: OR Start Time: 01/09/2025 7:18 AM Stop Time: 01/09/2025 7:22 AM Indication:at surgeon's request Performed ByAMBER: Jose Baum SRNA Preanesthetic Checklist Completed: patient identified, IV checked, site marked, risks and benefits discussed, surgical consent, monitors and equipment checked, pre-op evaluation and timeout performed Spinal Block Prep: Patient Position:sitting Sales And Service Representative:cap, gloves, sterile barriers and mask Prep:Chloraprep Patient Monitoring:blood pressure monitoring, continuous pulse oximetry and EKG Spinal Block Procedure Approach:midline Guidance:landmark technique and palpation technique Location:L4-L5 Needle Type:Jorge Luis Needle Gauge:25 G Placement of Spinal needle event:cerebrospinal fluid aspirated Paresthesia: no Fluid Appearance:clear Medications: Mepivacaine HCl (PF) (CARBOCAINE) 1.5 % injection - Injection 4 mL - 01/09/2025 7:22:00 AM Post Assessment Patient Tolerance:patient tolerated the procedure well with no apparent complications Complications no Additional Notes Procedure: Pt assisted to sitting position, with legs in position of comfort over side of bed. Pt. instructed in optimal spine presentation, the spine was prepped/ Draped and the skin at insertion site was anesthetized with 1% Lidocaine 2 ml. The spinal needle was then advanced until CSF flow was obtained and LA was injected: * Anesthesia Preprocedure Evaluation - Maurice Brownlee MD - 01/09/2025 6:36 AM EDT Anesthesia Evaluation Patient summary reviewed and Nursing notes reviewed NPO Solid Status: > 8 hours NPO Liquid Status: > 2 hours Airway Mallampati: II TM distance: >3 FB Neck ROM: full No difficulty expected Dental Pulmonary (+) ,sleep apnea on CPAP (-) asthma, shortness of breath, recent URI, not a smoker, no home oxygen Cardiovascular Exercise tolerance: good (4-7 METS) ECG reviewed (+) hypertension, hyperlipidemia (-) past [place], dysrhythmias, angina, cardiac stents ROS comment: ECG NSR Neuro/Psych (+) numbness, psychiatric history (-) seizures, CVA GI/Hepatic/Renal/Endo (+) GERD (-) no renal disease, diabetes, no thyroid disorder Musculoskeletal (+) back painArthralgias: DDD OA. 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 Plan discussed with HOTEL YARDPERSON. CODE STATUS: documented in this encounter Plan of Treatment Upcoming Encounters Date Type Department Care Team (Late st Contact Info) Description 03/01/2025 11:00 AM EDT Appointment [facility] [place] [address] [facility] [address] [place] [id number] 03/01/2025 2:00 PM EDT Office Visit [facility] [address] [facility] [address] [place] [address] Gaston Barnard MD [address] [facility] [address] [place] [address] 04/16/2025 1:00 PM EST Office Visit [facility] [address] [facility] [address] [place] [address] Brenton Hood MD [address] [facility] [address] [place] [address] 05/20/2025 3:00 PM EST Office Visit [facility] NEUR[facility] [address] [facility] [address] [place] [phone] Casi Starr, MICROFILM PROCESSOR [address] [facility] [address] [place] [address] documented as of this encounter Goals Goal Patient Goal Type Associated Problems Recent Progress Patient-Stated? Author Autogenera ivette Goal Care Plan Autogenerated Problem No Brenton Hood MD documented as of this encounter Procedures Procedure Name Priority Date/Time Associated Diagnosis Comments ANESTHESIA PERIPHERAL BLOCK Routine 01/09/2025 9:22 AM EDT SPINAL Routine 01/09/2025 7:22 AM EDT documented in this encounter Results * BH AN PERIPHERAL BLOCK CATHETER (01/09/2025 9:22 AM EDT) Narrative Ryan Mondragon CRNA - 01/09/2025 9:22 AM EDT Ryan Mondragon CRNA 01/09/2025 9:23 AM Peripheral Block Pre-sedation assessment completed: 01/09/2025 9:22 AM Patient reassessed immediately prior to procedure Patient location during procedure: post-op Start time: 01/09/2025 9:22 AM Stop time: 01/09/2025 9:22 AM Reason for block: at surgeon's request and post-op pain management Performed by UZAIR/CAA: Hans Garcia, UZAIR Assisted by: Casi Snow RN Preanesthetic Checklist Completed: patient identified, IV checked, site marked, risks and benefits discussed, surgical consent, monitors and equipment checked, pre-op evaluation and timeout performed Prep: Pt Position: supine Sterile barriers:cap, gloves, mask, sterile barriers and washed/disinfected hands Prep: ChloraPrep Patient monitoring: blood pressure monitoring, continuous pulse oximetry and EKG Procedure Performed under: spinal Guidance:ultrasound guided ULTRASOUND INTERPRETATION. Using ultrasound guidance a 20 G gauge needle was placed in close proximity to the nerve, at which point, under ultrasound guidance anesthetic was injected in the area of the nerve and spread of the anesthesia was seen on ultrasound in close proximity thereto. There were no abnormalities seen on ultrasound; a digital image was taken; and the patient tolerated the procedure with no complications. Images:still images obtained, printed/placed on chart Laterality:right Block Type:adductor canal block Injection Technique:catheter Needle Type:Tuohy and echogenic Needle Gauge:18 G Resistance on Injection: none Catheter Size:20 G (20g) Medications Used: bupivacaine PF (MARCAINE) 0.25 % injection - Injection 20 mL - 01/09/2025 9:22:00 AM Medications Preservative Free Saline:10ml Post Assessment Injection Assessment: negative aspiration for heme, incremental injection and no paresthesia on injection Patient Tolerance:comfortable throughout block Complications:no Additional Notes CATHETER A high-frequency linear transducer, with sterile cover, was placed on the anterior mid-thigh (between the anterior superior iliac spine and patella). The transducer was then moved medially to identify the Sartorius muscle (Brittanie), Vastus Medialis muscle (VMM), Superficial Femoral Artery (SFA) and Vein. The transducer was then moved cephalad or caudad to position the SFA in the middle of the Brittanie. The insertion site was prepped and draped in sterile fashion. Skin and cutaneous tissue was infiltrated with 2-5 ml of 1% Lidocaine. Using ultrasound-guidance, an 18-gauge Contiplex Ultra 360 Touhy needle was advanced in plane from lateral to medial. Preservative-free normal saline was utilized for hydro-dissection of tissue, advancement of Touhy, and to confirm needle placement below the fascial plane of the Brittanie where the Nerve to the VMM is located. Local anesthetic (LA) 5 ml deposited here. The Touhy needle continues its path lateral to the SFA at the level of the Saphenous Nerve. The remainder of the LA was deposited at the 10-11 o'clock position of the SFA. This injection created a space between the Brittanie and the SFA. Aspiration every 5 ml to prevent intravascular injection. Injection was completed with negative aspiration of blood and negative intravascular injection. Injection pressures were normal with minimal resistance. A 20-gauge Contiplex Echo catheter was placed through the needle and advance out the tip of the Touhy 3-5 cm anterior to the SFA. The Touhy needle was then removed, and final catheter position verified at the 12 o'clock position to the SFA. The catheter was secured in the usual fashion with skin glue, benzoin, steri-strips, CHG tegaderm and label noting Nerve Block Catheter . Jerk tape applied at yellow connector and catheter connection. Performed by: Hans Garcia CRNA Maurice Brownlee MD ANESTHESIA ORDERABLES Edited Re sult - Final * HC BH AN SPINAL TRAY (01/09/2025 7:22 AM EDT) Narrative Ryan Mondragon CRNA - 01/09/2025 7:22 AM EDT Ryan Mondragon CRNA 01/09/2025 11:01 AM Spinal Block Pre-sedation assessment completed: 01/09/2025 7:19 AM Patient reassessed immediately prior to procedure Patient location during procedure: OR Start Time: 01/09/2025 7:18 AM Stop Time: 01/09/2025 7:22 AM Indication:at surgeon's request Performed ByAMBER: Jose Baum SRNA Preanesthetic Checklist Completed: patient identified, IV checked, site marked, risks and benefits discussed, surgical consent, monitors and equipment checked, pre-op evaluation and timeout performed Spinal Block Prep: Patient Position:sitting Sales And Service Representative:cap, gloves, sterile barriers and mask Prep:Chloraprep Patient Monitoring:blood pressure monitoring, continuous pulse oximetry and EKG Spinal Block Procedure Approach:midline Guidance:landmark technique and palpation technique Location:L4-L5 Needle Type:Jorge Luis Needle Gauge:25 G Placement of Spinal needle event:cerebrospinal fluid aspirated Paresthesia: no Fluid Appearance:clear Medications: Mepivacaine HCl (PF) (CARBOCAINE) 1.5 % injection - Injection 4 mL - 01/09/2025 7:22:00 AM Post Assessment Patient Tolerance:patient tolerated the procedure well with no apparent complications Complications no Additional Notes Procedure: Pt assisted to sitting position, with legs in position of comfort over side of bed. Pt. instructed in optimal spine presentation, the spine was prepped/ Draped and the skin at insertion site was anesthetized with 1% Lidocaine 2 ml. The spinal needle was then advanced until CSF flow was obtained and LA was injected: Maurice Brownlee MD ANESTHESIA ORDERABLES Final Res ult documented in this encounter Visit Diagnoses Not on filedocumented in this encounter Administered Medications Inactive Administered Medications - up to 3 most recent administrations Medication Order MAR Action Action Date Dose Rate Site bupivacaine (PF) (MARCAINE) 0.25 % injection Injection, One-Time Injection, Starting on Tue01/09/25 at 0922, For 1 dose Given 01/09/2025 9:22 AM EDT 20 mL ceFAZolin 2000 mg IVPB in 100 mL NS (MBP) 2 g, Intravenous, Administer over 30 Minutes, Once, On Tue01/09/25 at 0607, For 1 dose, Administer Within 1 Hour of Surgical Incision. Redose 4 Hours From Pre-Op Dose if Procedure Ongoing or Blood Loss Greater Than 1.5 L Caution: Look alike/sound alike drug alert, Indications: Surgical ProphylaxisIndications:Surgical Prophylaxis New Bag 01/09/2025 7:21 AM EDT 2 g dexAMETHasone (DECADRON) injection Intravenous, As Needed, Starting on Tue01/09/25 at 0757 Given 01/09/2025 7:57 AM EDT 8 mg ePHEDrine Sulfate (Pressors) Intravenous, As Needed, Starting on Tue01/09/25 at 0738 Given 01/09/2025 9:08 AM EDT 10 mg Given 01/09/2025 7:40 AM EDT 10 mg Given 01/09/2025 7:38 AM EDT 10 mg fentaNYL citrate (PF) (SUBLIMAZE) injection Intravenous, As Needed, Starting on Tue01/09/25 at 0856 Given 01/09/2025 8:56 AM EDT 25 mcg lactated ringers infusion 9 mL/hr, Intravenous, Continuous, Starting on Iaz 01/10/25 at 0600, For 1 day, May switch to NS IV at KVO if renal / if indicated Restarted 01/09/2025 7:18 AM EDT New Bag 01/09/2025 6:28 AM EDT 9 mL/hr 9 mL/hr Mepivacaine HCl (PF) (CARBOCAINE) 1.5 % injection Injection, One-Time Injection, Starting on Tue01/09/25 at 0722, For 1 dose Given 01/09/2025 7:22 AM EDT 4 mL ondansetron (ZOFRAN) injection Intravenous, As Needed, Starting on Tue01/09/25 at 0825 Given 01/09/2025 8:25 AM EDT 4 mg phenylephrine (DESIREE-SYNEPHRINE) 10 mg in sodium chloride 0.9 % 100 mL infusion Intravenous, Continuous PRN, Starting on Tue01/09/25 at 0752 Rate/Dose Change 01/09/2025 8:26 AM EDT 25 mcg/min 15 mL/hr New Bag 01/09/2025 7:52 AM EDT 30 mcg/min 18 mL/hr phenylephrine (DESIREE-SYNEPHRINE) 1000 MCG/10ML injection Intravenous, As Needed, Starting on Tue01/09/25 at 0748 Given 01/09/2025 7:48 AM EDT 200 mcg Given 01/09/2025 7:45 AM EDT 200 mcg propofol (DIPRIVAN) infusion 10 mg/mL 100 mL Intravenous, Continuous PRN, Starting on Tue01/09/25 at 0719 Rate/Dose Change 01/09/2025 9:07 AM EDT 100 mcg/kg/min 43.26 mL/hr Rate/Dose Change 01/09/2025 8:28 AM EDT 120 mcg/kg/min 51. 912 mL/hr Rate/Dose Change 01/09/2025 8:16 AM EDT 110 mcg/kg/min 47. 586 mL/hr tranexamic acid 1000 mg in 100 mL 0.7% NaCl infusion (premix) 1,000 mg, Intravenous, Administer over 30 Minutes, Once, On Tue01/09/25 at 0607, For 1 dose, Give prior to incision.Indications:Primary osteoarthritis of right knee Bolus 01/09/2025 8:35 AM EDT 1,000 mg New Bag 01/09/2025 7:25 AM EDT 1,000 mg documented in this encounter Additional Health Concerns Active Problems Noted Date Diagnosed Date Autogenerated Problem 02/09/2025 documented as of this encounter Care Teams School Principal Relationship Specialty Start Date End Date Js Jack MD [address] [place] [address] PCP - General 01/27/15 documented as of this encounter
--- OUTSIDE RECORDS SUMMARY | 2025-01-09 09:10 | XMS_ITS | Encounter Summary ---
Author Organization [facility] [place] ystem Address [address] [place] [address] Care Team Providers Care Cyber Instructor Name Role Phone Js Jack MD Primary Care Provider [phone] [phone] Reason for Visit * Auth/Cert Specialty Diagnoses / Procedures Referred By Contac t Referred To Contact Diagnoses Primary osteoarthritis of right knee Primary osteoarthritis of right knee [M17.11] Procedures [place] ARTHRP KNE CONDYLE&PLATU MEDIAL&LAT COMPARTMENTS TOTAL KNEE ARTHROPLASTY WITH RIGHT Referral ID Status Reason Start Date Expiration Date Visits Re quested Visits Authorized [id number] 1 1 Encounter Details Date Type Department Care Team (Latest Contact Info) Description 01/09/2025 9:10 AM EDT Anesthesia Event Converted [facility] [address] [place] [phone] Social History Tobacco Use Types Packs/Day Years [...] or training? Not on file Preferred Language Chinese 12/26/2024 PHQ-2 Answer Date Recorded Retired PHQ-9: [...] 01/09/2025 6:17 AM EDT Glenny Pruett RN 2. Non-Specific Active Suici serge Thoughts (Past 1 Month) No 01/09/2025 6:17 AM EDT Oralia Pruett RN * Calculated C-SSRS Risk Score (Lifetime/Recent) Answer Date of Assessment Author No Risk Indicated 01/09/2025 6:17 AM EDT Glenny Yu RN * Gary Suicide Severity Rating Scale (Screener/Recent Self-Report) Question Answer Date of Assessment Author 6. Suicidal Behavior (Lifetime) No 6:17 AM EDT Glenny Pruett RN documented as of this encounter Plan of Treatment Upcoming Encounters Date Type Department Care Team (Late st Contact Info) Description 03/01/2025 11:00 AM EDT Appointment [facility] [place] [address] [facility] [address] [place] [address] 03/01/2025 2:00 PM EDT Office Visit [facility] [address] [facility] [address] [place] [phone] Gaston Barnard MD [address] [facility] [address] [place] [address] 04/16/2025 1:00 PM EST Office Visit [facility] [address] [facility] [address] [place] [address] Brenton Hood MD 1760 [facility] [address] [place], [place] [id number] 05/20/2025 3:00 PM EST Office Visit [facility] NEUROLOGY [address] [facility] [address] [place] [address] Casi Starr, AUTOMATIC QUILLING MACHINE OPERATOR [facility] [facility] [address] [place], [place] [id number] documented as of this encounter Goals Goal Patient Goal Type Associated Problems Recent Progress Patient-Stated? Author Autogenera ivette Goal Care Plan Autogenerated Problem No Brenton Hood MD documented as of this encounter Procedures Procedure Name Priority Date/Time Associated Diagnosis Comments ANESTHESIA PERIPHERAL BLOCK Routine 01/09/2025 9:22 AM EDT documented in this encounter Results [...] request and post-op pain management Performed by WORKFORCE DEVELOPMENT PROGRAM DIRECTOR/CAA: Hans Garcia, UZAIR Assisted by: Casi Snow [...] ANESTHESIA ORDERABLES Edited Re sult - Final documented in this encounter Visit Diagnoses Not on filedocumented in this encounter Additional Health Concerns Active Problems Noted Date Diagnosed Date Autogenerated Problem 02/09/2025 documented as of this encounter Care Teams Cyber Instructor Relationship Specialty Start Date End Date Js Jack MD [address] [place] [address] PCP - General 01/27/15 documented as of this encounter
--- OUTSIDE RECORDS SUMMARY | 2025-01-29 13:30 | XMS_ITS | Encounter Summary ---
Author Organization [facility] ystem Address [address] [place] [address] Care Team Providers Care Keymodule Assembly Supervisor Name Role Phone Js Jack MD Primary Care Provider [phone] Reason for Visit * Reason Comments Post-op 3 weeks s/p TOTAL KN EE ARTHROPLASTY, right (DOS 01/09/25) Encounter Details Date Type Department Care Team (Late st Contact Info) Description 01/29/2025 1:30 PM EDT Office Visit [facility] MEDICINE [address] [place] [address] Kaylin Alcantara PA-C [address] [place] [address] Status post total right knee replacement (Primary Dx) Social History Tobacco Use Types Packs/Day Years Used Date Smoking Tobacco: Never Smokeless Tobacco: Never Tobacco Cessation:Counseling Given: Not Answered Alcohol Use Standard Drinks/Week Comments Yes 10 [...] or training? Not on file Preferred Language Ghanaian 12/26/2024 PHQ-2 Answer Date Recorded Patient Health Questionnaire-9 Score 0 01/28/2025 Comments No Sex and Gender Information Value Date Recorded Sex Assigned at Female 01/28/2025 9:25 PM EDT Legal Sex Female 10:01 AM EDT Gender Identity Not on file Sexual Orientation Not on file documented as of this encounter Last Filed Vital Signs Vital Sign Reading Time Taken Comments Blood Pressure - - Pulse - - Temperature 36.3 C (97.3 F) 01/29/2025 1:14 PM EDT Respiratory Rate - - Oxygen Saturation - - Inhaled Oxygen Concentration - - Weight - - Height - - Body Mass Index - - documented in this encounter Progress Notes * Kaylin Alcantara PA-C - 01/29/2025 1:30 PM EDT Images from the original note were not included. [facility] [place] Subjective Post-op (3 weeks s/p TOTAL KNEE ARTHROPLASTY, right (DOS 01/09/25)) FRANNIE Berrios is a 69 y.o. female. Patient presents for their initial postop visit followingright TKA with Chris robot performed on the above date by Dr. Hood. Pain scale: 2/10. Associated symptoms pain, swelling. Pain with standing, PT. Pain eased by resting. Using nothing to assist with ambulation. Attending OPPT. Patient denies any fever, chills, night sweats or other constitutional symptoms. Objective Physical Exam Temp 97.3 ??F (36.3 ??C) There is no height or weight on file to calculate BMI. Ortho Exam Integument: Right knee: Incision is healing well without redness, warmth, drainage or signs of infection. Lower Extremities: Right knee: Tenderness: Minimal discomfort throughout the knee Effusion: Mild Swelling: Positive with soft calf Crepitus: None Range of motion: Extension: 0?? Flexion: 115?? Instability: No varus laxity, no valgus laxity, negative anterior drawer Deformities: None Imaging Reviewed and Interpreted: Ordered right knee plain films. Imaging read/interpreted by Dr. Hood. Imaging Results (Last 24 Hours) Procedure Component Value Units Date/Time XR Knee 3+ View With [place] Right [[id number]] Resulted: 01/29/251328 Updated: 01/29/251328 Narrative: Indication: Status post right total knee arthroplasty Comparison: Todays xrays were compared to previous xrays from 01/09/2025 Impression: Right Knee: Demonstrate well positioned knee arthroplasty components in satisfactory alignment without evidence of wear, loosening, subsidence, fracture, or osteolysis and No significant changes compared to prior radiographs. Assessment: 1. Status post total right knee replacement Plan: Status post right TKA with Chris robot, stable. Reviewed imaging with patient. Continue with outpatient PT. Recommend OTC NSAIDS/pain medication as needed. Continue with ASA as directed for DVT prophylaxis. No dental procedures until minimum of 3 months out from surgery. Patient will require indefinite antibiotic prophylaxis before dental procedures. Follow up with Dr. Hood in 3 weeks for repeat evaluation. Needs knee imaging. ROM goal by their next appointment 0-120 degrees. Questions and concerns answered. Answers submitted by the patient for this visit: Post Operative Visit (Submitted on 01/28/2025) Chief Complaint: Follow-up Pain Control: well controlled Fever: no fever Diet: adequate intake Activity: returning to normal Operative Site Issues: Brie Alcantara PA-C 01/29/25 13:44 EDT Dictated Utilizing [employer] Dictation. documented in this encounter Plan of Treatment Upcoming Encounters Date Type Department Care Team (Late st Contact Info) Description 03/01/2025 11:00 AM EDT [facility]ointment [facility] [address] [address] 03/01/2025 2:00 PM EDT Office Visit [facility] [address] [facility] [address] [place] [phone] Gaston Barnard MD [address] [facility] [address] [place] [address] 04/16/2025 1:00 PM EST Office Visit [facility] [address]60 [facility] [address] [place] [address] Brenton Hood MD 1760 [facility] [address] [place] [address] 05/20/2025 3:00 PM EST Office Visit [facility] [address]75 [facility] [address] [place] [phone] Casi Starr, EMBROIDERY DESIGNER [facility] [facility] [address] [place] [address] documented as of this encounter Goals Goal Patient Goal Type Associated Problems Recent Progress Patient-Stated? Author Autogenera ivette Goal Care Plan Autogenerated Problem No Brenton Hood MD documented as of this encounter Procedures Procedure Name Priority Date/Time Associated Diagnosis Comments XR KNEE 3+ VW W SUNRISE RIGHT Routine 01/29/2025 1:26 PM EDT Status post total right knee replacement documented in this encounter Results * XR Knee 3+ View With [place] Right (01/29/2025 1:26 PM EDT) Anatomical Region Laterality Modality Lower Extremities, Knee Right Xray Impressions 01/29/2025 1:29 PM EDT Right Knee: Demonstrate well positioned knee arthroplasty components in satisfactory alignment without evidence of wear, loosening, subsidence, fracture, or osteolysis and No significant changes compared to prior radiographs. Narrative 01/29/2025 1:29 PM EDT Indication: Status post right total knee arthroplasty Comparison: Todays xrays were compared to previous xrays from 01/09/2025 us Brenton Hood MD [facility] ORDByron JANETH Final Result documented in this encounter Visit Diagnoses Diagnosis Status post total right knee replacement- Primary documented in this encounter Additional Health Concerns Active Problems Noted Date Diagnosed Date Autogenerated Problem 02/09/2025 documented as of this encounter Care Teams Keymodule Assembly Supervisor Relationship Specialty Start Date End Date Js Jack MD [address] [place] [address] PCP - General 01/27/15 documented as of this encounter
--- OUTSIDE RECORDS SUMMARY | 2025-02-19 14:10 | XMS_ITS | Encounter Summary ---
Author Organization [facility] ystem Address [address] [place] [address] Care Team Providers Care Cad Drafter Name Role Phone Js Jack MD Primary Care Provider [phone] [phone] Reason for Visit * Reason Comments Post-op 3 week follow up--5. 5 weeksTotal Knee Arthroplasty With Chris Robot - Right (DOS 01/09/25) Encounter Details Date Type Department Care Team (Late st Contact Info) Description 02/19/2025 2:10 PM EDT Office Visit [facility] [address] [place] [address] [place] [address] [place] [address] Status post total right knee replacement (Primary Dx) Social History Tobacco Use Types Packs/Day Years Used Date Smoking Tobacco: Never Passive Smoke Exposure: Never Smokeless Tobacco: Never Tobacco Cessation:Counseling Given: No Alcohol Use Standard Drinks/Week Comments Yes 10 [...] or training? Not on file Preferred Language Guatemalan 12/26/2024 PHQ-2 Answer Date Recorded Patient Health Questionnaire-9 Score 0 01/28/2025 Comments No Sex and Gender Information Value Date Recorded Sex Assigned at Female 01/28/2025 9:25 PM EDT Legal Sex Female 10:01 AM EDT Gender Identity Not on file Sexual Orientation Not on file documented as of this encounter Progress Notes * Brenton Hood MD - 02/19/2025 2:10 PM EDT Orthopaedic Clinic Note: Knee Post Op Chief Complaint Patient presents with Post-op 3 week follow up--5.5 weeksTotal Knee Arthroplasty With Chris Robot - Right (DOS 01/09/25) HPI Ms. Berrios is 5.5 week(s) s/p right total knee arthroplasty. Patient rates her pain 0/10 on the pain scale. She is ambulating with no assistive device. Denies fevers chills or constitutional symptoms. She is continue with outpatient physical therapy. Overall she is happy with her progress. Past Medical History: Diagnosis Date Anxiety Arthritis of back Dean esophagus 2018 Bursitis of hip 2023 Cervical disc disorder 2000 Chronic pain disorder 2014 Claustrophobia 1995 Cough CHRONIC Degeneration of lumbar or lumbosacral intervertebral disc 05/20/2017 GERD (gastroesophageal reflux disease) History of esophageal stricture S/P dilation in 05/2013 History of meningioma STABLE Hyperlipidemia 2009 Hypertension 1998 Joint pain 2009 Hands Knee swelling 2022 Low back pain Lumbar radiculopathy 05/31/2023 Mediastinal adenopathy stable and calcified.CT scan of the chest 04/01/2014 reports mediastinal and hilar adenopathy bilaterally with the largest lymph node measuring 2.3 cm. Findings appear stable over prior studies dating back to nearly 2 years Nausea & vomiting 04/21/2019 Osteoarthritis [address] scan of the chest [...] Laterality: Right; LUMBAR SYNOVIAL CYST REMOVAL 03/2020 VIDHYA FUNDOPLICATION History of Esophagogastric Fundoplasty Vidhya Fundoplication 2001 [facility] OOPHORECTOMY Bilateral SHOULDER ARTHROSCOPY W/ ROTATOR CUFF REPAIR Left 08/24/2022 Procedure: ARTHROSCOPIC ROTATOR CUFF REPAIR WITH LIMITED DEBRIDEMENT- LEFT; Surgeon: Rajesh Engel Jr., MD; Location: [facility]; Service: Orthopedics; Laterality: Left; SHOULDER SURGERY SPINAL CORD STIMULATOR IMPLANT N/A 06/15/2023 Procedure: THORACIC LAMINOTOMY FOR SPINAL CORD STIMULATOR INSERTION PHASE 1; Surgeon: Gaston Barnard MD; Location: [facility]; Service: Neurosurgery; Laterality: N/A; TOTAL KNEE ARTHROPLASTY Right 01/09/2025 Procedure: TOTAL KNEE ARTHROPLASTY WITH CHRIS ROBOT; Surgeon: Brenton Hood MD; Location: [facility]; Service: Robotics - Ortho; Laterality: Right; UPPER GASTROINTESTINAL ENDOSCOPY 03/20/19 Family History Problem Relation Age of Onset Colon cancer Mother Arthritis Mother Cancer Mother Colon cancer age 68 Hyperlipidemia Mother Stroke Mother Hypertension Mother Diabetes Sister Diabetes Sister Social History Socioeconomic History Marital status: Tobacco Use Smoking status: Never Passive exposure: Never Smokeless tobacco: Never Vaping Use Vaping status: Never Used Substance and Sexual Activity Alcohol use: Yes Alcohol/week: 10.0 standard drinks of alcohol Types: 10 Glasses of wine per week Comment: 1-2 GLASSES OF RED WINE Drug use: Never Sexual activity: Not Currently Partners: Male Current Outpatient Medications on File Prior to Visit Medication Sig Dispense Refill amLODIPine (NORVASC) 5 MG tablet Take 1 tablet by mouth Every Night. Cholecalciferol (vitamin D3) 125 MCG (5000 UT) tablet tablet Take 1 tablet by mouth Daily. Coenzyme Q10 (COQ10 PO) Take 300 mg by mouth Every Night. Dietary Management Product (Rheumate) capsule Take one capsule by mouth once daily 90 capsule 2 DULoxetine (CYMBALTA) 60 MG capsule Take 1 capsule by mouth Every Night. estradiol (CLIMARA) 0.05 MG/24HR patch Place 1 patch on the skin as directed by provider 1 (One) Time Per Week. TUESDAY FAMOTIDINE PO Take 40 mg by mouth Every Night. Gabapentin Enacarbil (HORIZANT PO) Take 1 tablet by mouth Every Evening. hydroCHLOROthiazide 25 MG tablet Take 1 tablet by mouth Every Night. levocetirizine (XYZAL) 5 MG tablet Take 1 tablet by mouth Every Evening. LORazepam (ATIVAN) 0.5 MG tablet TAKE ONE TABLET BY MOUTH EVERY 4 TO 6 HOURS NEEDED MAY CAUSE DROWSINESS max 3 tablets PER day Magnesium Chloride (MAGNESIUM DR PO) Take 1 tablet by mouth Every Night. melatonin 5 MG tablet tablet Take 1 tablet by mouth Every Night. Melatonin-Pyridoxine 5-1 MG tablet Take 5 mg by mouth Daily. metoprolol succinate XL (TOPROL-XL) 50 MG 24 hr tablet Take 1 tablet by mouth Every Night. multivitamin with minerals (MULTIVITAMIN ADULTS 50+ PO) Take 1 tablet by mouth Daily. pantoprazole (PROTONIX) 40 MG EC tablet Take 1 tablet by mouth Daily. Probiotic Product (PROBIOTIC ADVANCED PO) Take 1 capsule by mouth Daily. rosuvastatin (CRESTOR) 20 MG tablet Take 1 tablet by mouth Every Night. vitamin B-6 (PYRIDOXINE) 100 MG tablet Take 1 tablet by mouth Daily. 30 tablet 0 No current facility-administered medications on file prior to visit. Allergies Allergen Reactions Lunesta [Eszopiclone] Anaphylaxis Review of Systems Constitutional: Negative. HENT: Negative. Eyes: Negative. Respiratory: Negative. Cardiovascular: Negative. Gastrointestinal: Negative. Endocrine: Negative. Genitourinary: Negative. Musculoskeletal: Positive for arthralgias. Skin: Negative. Allergic/Immunologic: Negative. Neurological: Negative. Hematological: Negative. Psychiatric/Behavioral: Negative. Physical Exam There were no vitals taken for this visit. There is no height or weight on file to calculate BMI. GENERAL APPEARANCE: awake, alert, oriented, in no acute distress and well developed, well nourished LUNGS: breathing nonlabored EXTREMITIES: no clubbing, cyanosis PERIPHERAL PULSES: palpable dorsalis pedis and posterior tibial pulses bilaterally. GAIT: Normal Right Knee Exam: ALIGNMENT: neutral RANGE OF MOTION: Normal (0-120 degrees) with no extensor lag or flexion contracture LIGAMENTOUS STABILITY: stable to varus and valgus stress at terminal extension and 30 degrees without any evidence of laxity STRENGTH: KNEE FLEXION 5/5 KNEE EXTENSION 5/5 ANKLE DORSIFLEXION 5/5 ANKLE PLANTARFLEXION 5/5 PAIN WITH PALPATION:denies tenderness to palpation about the knee KNEE EFFUSION: no PAIN WITH KNEE ROM: no PATELLAR CREPITUS: no SENSATION TO LIGHT TOUCH: DEEP PERONEAL/SUPERFICIAL PERONEAL/SURAL/SAPHENOUS/TIBIAL: intact EDEMA: no ERYTHEMA: no WOUNDS/INCISIONS: yes, well healed surgical incision without evidence of erythema or drainage RADIOGRAPHIC FINDINGS: Indication: Status post right total knee arthroplasty Comparison: Todays xrays were compared to previous xrays from 01/29/2025 Knee films: Demonstrate well positioned knee arthroplasty components in satisfactory alignment without evidence of wear, loosening, subsidence, fracture, or osteolysis and No significant changes compared to prior radiographs. Assessment/Plan: Diagnosis Plan 1. Status post total right knee replacement XR Knee 3+ View With [place] Right Patient is doing well 5-1/2 weeks status post right total knee arthroplasty. I recommend activity as tolerated without restrictions. I will see the patient back in 2 months for repeat evaluation withx-ray 3 views right knee on return. Patient welcome to follow-up sooner should problems arise. Brenton Hood MD 02/19/25 14:40 EDT documented in this encounter Plan of Treatment Upcoming Encounters Date Type Department Care Team (Late st Contact Info) Description 03/01/2025 11:00 AM EDT Appointment [facility] [place] 3000 [facility] [address] [place] [address] 03/01/2025 2:00 PM EDT Office Visit [facility] 1760 [facility] [address] [place] [phone] Gaston Barnard MD 1760 [facility] [address] [place] [address] 04/16/2025 1:00 PM EST Office Visit [facility] [address] [address] Brenton Hood MD 1760 [facility] [address] [place] [address] 05/20/2025 3:00 PM EST Office Visit [facility] NE[facility] 1775 [facility] [address] [place] [phone] Casi Starr APRN [address] [facility] [address] [place] [address] documented as of this encounter Goals Goal Patient Goal Type Associated Problems Recent Progress Patient-Stated? Author Autogenera ivette Goal Care Plan Autogenerated Problem No Brenton Hood MD documented as of this encounter Procedures Procedure Name Priority Date/Time Associated Diagnosis Comments XR KNEE 3+ VW W SUNRISE RIGHT Routine 02/19/2025 2:04 PM EDT Status post total right knee replacement documented in this encounter Results * XR Knee 3+ View With [place] Right (02/19/2025 2:04 PM EDT) Anatomical Region Laterality Modality Lower Extremities, Knee Right Xray Narrative 02/19/2025 2:40 PM EDT Indication: Status post right total knee arthroplasty Comparison: Todays xrays were compared to previous xrays from 01/29/2025 Knee films: Demonstrate well positioned knee arthroplasty components in satisfactory alignment without evidence of wear, loosening, subsidence, fracture, or osteolysis and No significant changes compared to prior radiographs. us Brenton Hood MD IMG DIAGNOSTIC IMAGING ABA FOWLER Final Result documented in this encounter Visit Diagnoses Diagnosis Status post total right knee replacement- Primary documented in this encounter Additional Health Concerns Active Problems Noted Date Diagnosed Date Autogenerated Problem 02/09/2025 documented as of this encounter Care Teams Cad Drafter Relationship Specialty Start Date End Date Js Jack MD [address] [facility] [address] [place] [address] PCP - General 01/27/15 documented as of this encounter
[2025-02-25] VITALS (18 sets, daily range): BP systolic 147–197; BP diastolic 90–116; PULSE 66–93; RESP 14–17; TEMP 36.9; O2SAT 95–100; BMI 26.6
--- NOTE | 2025-02-25 17:09 | ED_ITS ---
<Statement entered by Savanna Mata DO - 02/26/25 20:54> I was consulted by the MICHA, and we discussed the complexity of problems being addressed. I approve the treatment and management plan for this patient's care in the emergency department, thus performing a substantial portion of the medical decision making. Savanna Mata DO Discharge Plan Disposition Patient Disposition: Home, Self-Care Condition: Good Prescriptions Prescriptions: No Action amlodipine 5 mg tablet 5 mg PO DAILY Patient Comments: TAKE 1 TABLET BY MOUTH EVERY DAY metoprolol succinate 50 mg tablet extended release 24 hr PO ONCE Patient Comments: TAKE 1 TABLET BY MOUTH DAILY Rheumate 1-1-500 mg capsule PO lorazepam 0.5 mg tablet PO .prn Patient Comments: TAKE ONE TABLET BY MOUTH EVERY 4 TO 6 HOURS NEEDED MAY CAUSE DROWSINESS max 3 tablets PER day estradiol 0.05 mg/24 hr patch weekly 1 patch TP WEEKLY Patient Comments: APPLY 1 PATCH TO SKIN EVERY WEEK pyridoxine (vitamin B6) 100 mg tablet 100 mg PO DAILY Patient Comments: TAKE ONE TABLET BY MOUTH ONCE A DAY Horizant 600 mg tablet extended release 600 mg PO HS Qty: 90 1RF Rx Instructions: administer daily at approximately 5 PM with food/evening meal mirtazapine [Remeron] 15 mg tablet 7.5 mg PO DAILY fexofenadine 180 mg tablet PO Patient Comments: TAKE ONE TABLET BY MOUTH EVERY DAY NEEDED hydrochlorothiazide 25 mg tablet 25 mg PO DAILY famotidine 40 mg tablet 40 mg PO HS Qty: 90 1RF mupirocin [Centany] 2 % ointment 1 applic topical BID 21 Days Qty: 22 0RF doxycycline hyclate 100 mg capsule 100 mg PO BID 7 Days Qty: 14 0RF rosuvastatin 20 MG tablet 20 mg PO DAILY Patient Comments: TAKE 1 TABLET BY MOUTH EVERY DAY AT BEDTIME pantoprazole 40 mg tablet,delayed release (DR/EC) 40 mg PO DAILY Patient Comments: TAKE 1 TABLET BY MOUTH EVERY DAY duloxetine 60 mg capsule,delayed release(DR/EC) 60 mg PO DAILY Patient Comments: TAKE 1 CAPSULE BY MOUTH EVERY DAY Referrals Follow up/Referrals: Provider,Referral, MD [Referring, Medical] - See instructions Activity Restrictions/Add. Instructions Additional Instructions/Restrictions: Follow-up with your primary care provider or return to the emergency department for any acute or worsening symptoms. Clinical Impressions Clinical Impression: Chest pain Print Language Print Language: Urdu Discharge ED Provider: Savanna Mata General Adult HPI <Sonia Lernerer - Last Filed: 02/25/25 18:39> General Chief complaint: Chest Pain Stated complaint: Chest Pain Time Seen by Provider: 02/25/25 17:09 History of Present Illness HPI narrative: 69-year-old female states that she has been seen at her primary care provider's office earlier today for ongoing right flank and right lower quadrant abdominal pain. She was sent to the emergency department at [facility] for CT scan however the wait was too long so she left there to come here for evaluation. She reports when she was on the way here she start developing chest pain and diaphoresis. She states that she did feel nauseous. She denies fevers or diarrhea. She does have a history of chronic low back pain and has a spinal cord stimulator. She reports that she did have a right knee replacement approximately 6 weeks ago. She states she was on aspirin postop but has not taken any recently. Related Data Home Medications ?Medication ?Instructions ?Recorded ?Confirmed rosuvastatin 20 mg tablet 20 mg PO DAILY Cholesterol 1 06/21/18 12/19/24 estradiol 0.05 mg/24 hr weekly 1 patch topical WEEKLY 12/21/21 12/19/24 transdermal patch duloxetine 60 mg capsule,delayed 60 mg PO DAILY 12/19/24 release pantoprazole 40 mg tablet,delayed 40 mg PO DAILY 04/0612/19/24 release pyridoxine (vitamin B6) 100 mg 100 mg PO DAILY 3 12/19/24 tablet mirtazapine 15 mg tablet (Remeron) 7.5 mg PO DAILY 12/19/24 amlodipine 5 mg tablet 5 mg PO DAILY 08/18/2312/19 levomefolate 1 mg-mecobalamin 1 cap PO 01/24/24 mg-herbal complex 500 mg capsule (Rheumate) metoprolol succinate 50 mg mg PO ONCE 01/24/24 5 tablet,extended release 24 hr fexofenadine 180 mg tablet mg PO 09/17/24 12/19/24 hydrochlorothiazide 25 mg tablet 25 mg PO DAILY 12/19/24 lorazepam 0.5 mg tablet mg PO .prn 12/19/24 12/19/24 Previous Rx's ?Medication ?Instructions ?Recorded gabapentin enacarbil 600 mg 600 mg PO HS #90 tabs 04/13 12/03 tablet,extended release (Horizant ER) famotidine 40 mg tablet 40 mg PO HS #90 tabs 5 mupirocin 2 % topical ointment 1 applic topical BID 3 weeks #22 12/24/24 (Centany) grams doxycycline hyclate 100 mg capsule 100 mg PO BID Infec tion 7 days #14 12/27/24 caps Allergies Allergy/AdvReac Type Severity Reaction Status Date / Time eszopiclone (From [email or web address]) Allergy Verified 12/19/24 13:13 [facility] <Sonia David - Last Filed: 02/25/25 18:39> [facility] Disclaimer: The information contained in this section may have been updated after the patient was seen, as this information can be updated by other users. Medical History (Updated 02/25/25 @ 21:48 by Savanna Mata DO) Blister of fifth toe, right Impacted cerumen of right ear Cerumen debris on tympanic membrane of both ears Post-nasal drainage Generalized anxiety disorder RLS (restless legs syndrome) MILEY (obstructive sleep apnea) Surgical History History of rotator cuff surgery Family History Other Cancer Diabetes Hypertension Stroke Social History Smoking Status: Never smoker second hand exposure: No (never smoked a day in her life) alcohol intake: current alcohol intake frequency: holidays/special occasions only counseling given: No substance use type: denies use counseling given: No current occupational status: retired Travel in the last 8 weeks?: Outside the [facility] adopted: No caregiver/support person: No foster care: No household members: spouse housing: house marital status: number of children: 4 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 [employer] physical activity: none working smoke detector in home: Yes fire extinguisher in home: Yes carbon monox detector in home: Yes firearms in home: No do you feel safe at home: Yes victim of physical abuse: No victim of emotional abuse: No victim of sexual abuse: No would you like helpful sources: No Have you lived/traveled outside [place] in past 30 days?: No Contact w/someone who lives/traveled outside US past 30 days?: No Exposure to someone with infectious disease in past 14 days?: No Do you have a fever (greater than 100.4 F or 38 C)?: No Have you tested positive for COVID-19?: No Exposed to someone with COVID-19 in past 14 days?: No Do you have a sore throat?: No Do you have a cough?: No Do you have any weakness?: No Do you have any diarrhea?: No Are you experiencing any unusual bleeding?: No Do you have any muscle aches/pain?: No Do you have any abdominal pain?: No Are you experiencing loss of taste or smell?: No Other Medical History Have you received the Flu Vaccine for this season: No Have you received the Pneumonia Vaccine: Yes <Sonia Hernandez - Last Filed: 02/25/25 18:39> ROS Obtained: Yes other Cardiovascular Cardiovascular: Reports chest pain Gastrointestinal Gastrointestingal: Reports abdominal pain, belching and nausea Musculoskeletal Musculoskeletal: Reports back pain Physical Exam <Sonia Hernandez - Last Filed: 02/25/25 18:39> Narrative Physical exam: General: Awake, aware, in no acute distress HEENT: Normocephalic, no evidence of trauma CV: RRR, no murmurs, rubs, or gallops. 2+ pulses in all extremities Pulm: CTA bilaterally with no rhonchi, rales, wheezes ABD: Diffuse tenderness on palpation of abdomen with normal active bowel sounds. Psych, appropriate mood and affect Musculoskeletal: Patient having intermittent jerking movement of her right lower extremity. She states she is unable to control these movements. Reports this is a new finding. Sensations intact in all extremities General General appearance: alert Respiratory Respiratory exam: Present normal lung sounds bilaterally Cardiovascular Cardiovascular exam: Present regular rate Neurological Exam Neurological exam: Present alert Medical Decision Making <Sonia Hernandez - Last Filed: 02/25/25 18:39> Medical Records Screening: Per USPSTF and CDC recommendations, given the prevalence of disease in our region, it is our hospital?s policy to screen for HIV and viral Hepatitis for all patients aged 18 and over and those with ongoing risk factors. Boo Inquiry Pt receiving controlled substance: No Vital Signs: 02/25/25 17:08 02/25/25 17:08 02/25/25 17:30 Temperature 98.5 F Temperature Source Oral Pulse Rate 67 83 Pulse Rate [Left Radial] 66 Respiratory Rate 17 Blood Pressure 181/90 H Blood Pressure [Right Arm] 168/93 H Blood Pressure Mean 120 Blood Pressure Mean [Right Arm] 118 Blood Pressure Source Blood Pressure Source [Right Arm] Automatic Cuff Blood Pressure Position Blood Pressure Position [Right Arm] Sitting 02 Sat by Pulse Oximetry 96 100 Oxygen Delivery Method Room Air 02/25/25 18:00 02/25/25 18:31 02/25/25 18:51 Temperature Temperature Source Pulse Rate 67 82 Pulse Rate [Left Radial] Respiratory Rate Blood Pressure 184/102 H 183/109 H 182/116 H Blood Pressure [Right Arm] Blood Pressure Mean 129 133 142 Blood Pressure Mean [Right Arm] Blood Pressure Source Blood Pressure Source [Right Arm] Blood Pressure Position Blood Pressure Position [Right Arm] 02 Sat by Pulse Oximetry 100 95 Oxygen Delivery Method 02/25/25 19:00 02/25/25 19:00 02/25/25 19:15 Temperature Temperature Source Pulse Rate 89 70 Pulse Rate [Left Radial] Respiratory Rate Blood Pressure 185/113 H Blood Pressure [Right Arm] Blood Pressure Mean 142 Blood Pressure Mean [Right Arm] Blood Pressure Source Blood Pressure Source [Right Arm] Blood Pressure Position Blood Pressure Position [Right Arm] 02 Sat by Pulse Oximetry 99 100 Oxygen Delivery Method 02/25/25 19:21 02/25/25 19:30 02/25/25 19:30 Temperature Temperature Source Pulse Rate 91 H Pulse Rate [Left Radial] Respiratory Rate Blood Pressure 188/115 H 197/111 H Blood Pressure [Right Arm] Blood Pressure Mean 136 133 Blood Pressure Mean [Right Arm] Blood Pressure Source Blood Pressure Source [Right Arm] Blood Pressure Position Blood Pressure Position [Right Arm] 02 Sat by Pulse Oximetry 100 Oxygen Delivery Method 02/25/25 19:45 02/25/25 19:57 02/25/25 20:30 Temperature Temperature Source Pulse Rate 93 H 91 H Pulse Rate [Left Radial] Respiratory Rate Blood Pressure 183/98 H Blood Pressure [Right Arm] Blood Pressure Mean 145 Blood Pressure Mean [Right Arm] Blood Pressure Source Blood Pressure Source [Right Arm] Blood Pressure Position Blood Pressure Position [Right Arm] 02 Sat by Pulse Oximetry 100 98 Oxygen Delivery Method 02/25/25 20:30 02/25/25 20:52 02/25/25 21:00 Temperature Temperature Source Pulse Rate 87 72 Pulse Rate [Left Radial] Respiratory Rate Blood Pressure 173/101 H Blood Pressure [Right Arm] Blood Pressure Mean 141 Blood Pressure Mean [Right Arm] Blood Pressure Source Blood Pressure Source [Right Arm] Blood Pressure Position Blood Pressure Position [Right Arm] 02 Sat by Pulse Oximetry 98 95 Oxygen Delivery Method 02/25/25 21:15 02/25/25 21:30 02/25/25 22:01 Temperature Temperature Source Pulse Rate 77 Pulse Rate [Left Radial] Respiratory Rate 15 14 Blood Pressure 147/94 H Blood Pressure [Right Arm] Blood Pressure Mean 126 Blood Pressure Mean [Right Arm] Blood Pressure Source Blood Pressure Source [Right Arm] Blood Pressure Position Blood Pressure Position [Right Arm] 02 Sat by Pulse Oximetry 96 Oxygen Delivery Method 02/25/25 22:04 Temperature 98.5 F Temperature Source Pulse Rate 77 Pulse Rate [Left Radial] Respiratory Rate 14 Blood Pressure 147/94 H Blood Pressure [Right Arm] Blood Pressure Mean Blood Pressure Mean [Right Arm] Blood Pressure Source Automatic Cuff Blood Pressure Source [Right Arm] Blood Pressure Position Sitting Blood Pressure Position [Right Arm] 02 Sat by Pulse Oximetry Oxygen Delivery Method Room Air Lab Data Lab Results 02/25/25 17:29: WBC 8.7, RBC 4.83, Hgb 14.7, Hct 43.1, MCV 89.2, MCH 30.4, MCHC 34.1, RDW 12.6, Plt Count 283, MPV 8.8, Neut % (Auto) 78.4, Lymph % (Auto) 13.5, [place] % (Auto) 7.0, Eos % (Auto) 0.3, Baso % (Auto) 0.5, Neut # (Auto) 6.8, Lymph # (Auto) 1.2, [place] # (Auto) 0.6, Eos # (Auto) 0.0, Baso # (Auto) 0.0, Sodium 130 L, Potassium 3.4 L, Chloride 96 L, Carbon Dioxide 25, Anion Gap 12.4, BUN 12, Creatinine 0.60, Estimated Creat Clear 60, Estimated GFR 99, Est GFR ( Amer) 120, Glucose 108 H, Calcium 9.9, Total Bilirubin 0.6, AST 40 H, ALT 24, Alkaline Phosphatase 86, Troponin I < 0.01, Total Protein 7.6, Albumin 4.7, Globulin 2.9, Albumin/Globulin Ratio 1.6 02/25/25 20:34: Troponin I < 0.01 02/25/25 20:38: Urine Color Yellow, Urine Appearance Clear, Urine pH 7.5, Ur Specific [place] 1.010, Urine Protein Negative, Urine Glucose (UA) Negative, Urine Ketones 1+, Urine Blood Negative, Urine Nitrate Negative, Urine Bilirubin Negative, Urine Urobilinogen 0.2, Ur Leukocyte Esterase Negative, Urine RBC Occasional, Urine WBC 3-5, Ur Squamous Epith Cells 3-5, Urine Bacteria 1+ 02/25/25 17:29 02/25/25 17:29 Orders (Tests/Meds): ED MEDICATIONS Discontinued Medications Generic Name Dose Route Start Last Admin Trade Name Freq PRN Reason Stop Dose Admin Aspirin 324 mg 02/25/25 17:21 02/25/25 18:41 Aspirin 81mg Chewable Tablet PO 02/25/25 17:22 324 mg ONCE ONE Administration Sodium Chloride 1,000 mls @ 999 mls/hr 02/25/25 18:37 02/25/25 21:15 Sod Chlor 0.9% 1000ml Bag IV 02/25/25 19:37 Infused .Q1H1M ONE Infusion Iopamidol 75 ml 02/25/25 18:39 02/25/25 18:41 Iopamidol-370 (76%);100ml Bottle IV 02/25/25 18:40 75 ml ONCE ONE Administration Ketorolac Tromethamine 15 mg 02/25/25 17:21 02/25/25 18:41 Ketorolac 15mg/Ml Vial IV 02/25/25 17:22 15 mg ONCE ONE Administration Lorazepam 0.5 mg 02/25/25 19:31 02/25/25 19:40 Lorazepam 0.5mg Tablet PO 02/25/25 19:32 0.5 mg ONCE ONE Administration Metoprolol Succinate 50 mg 02/25/25 19:31 02/25/25 19:40 Metoprolol Succinate Xl 50mg Tablet PO 02/25/25 19:32 50 mg ONCE ONE Administration Ondansetron HCl 4 mg 02/25/25 17:21 02/25/25 18:41 Ondansetron 4mg/2ml Vial IV 02/25/25 17:22 4 mg ONCE ONE Administration Ondansetron HCl 4 mg 02/25/25 19:11 02/25/25 19:40 Ondansetron 4mg/2ml Vial IV 02/25/25 19:12 4 mg ONCE ONE Administration Prochlorperazine Edisylate 5 mg 02/25/25 20:37 02/25/25 20:45 Prochlorperazine 10mg/2ml Vial IV 02/25/25 20:38 5 mg ONCE ONE Administration Sodium Chloride 10 ml 02/25/25 18:39 02/25/25 18:41 Sodium Chloride 0.9% 10ml Syr (Rad Only) IV 02/25/25 18:40 10 ml ONCE ONE Administration Sodium Chloride 50 ml 02/25/25 18:39 02/25/25 18:40 0.9 % Sodium Chloride 50 Ml Vial IV 02/25/25 18:40 50 ml ONCE ONE Administration ORDERS Category Date Time Status CT abdomen pelvis w con Stat Cat Scan 02/25/25 17:[address] angio chest PE protocol Stat Cat Scan 02/25/25 17:21 Completed Complete Blood Count Auto Diff Stat Lab 02/25/25 17:29 Completed Comprehensive Metabolic Panel Stat Lab 02/25/25 17:29 Completed Troponin I Q3H Lab 02/25/25 20:34 Completed Troponin I Stat Lab 02/25/25 17:29 Completed Urinalysis and Microscopic Stat Lab 02/25/25 20:38 Completed Medical Decision Narrative: Initial impression of presenting illness: 69-year-old female presents emergency department with complaints of right lower quadrant and right flank pain since last night. Reports she has a history of chronic low back pain with a spinal stimulator. She reports she has been seen in her primary care provider's office today for these complaints and was sent to [facility] for CT of abdomen however their wait time was too long so they came here for evaluation. She reports on the way here she started developing chest pain and became diaphoretic. She recently had a right knee replacement approximately 6 weeks ago and was on aspirin postop but is not taking medication for a while. Differential diagnosis includes but is not limited to: ACS, PE, urinary tract infection, pyelonephritis, kidney stone, acute exacerbation of chronic pain, complication from spinal cord stimulator Patient arrives hemodynamically stable, afebrile, without respiratory distress with vital signs interpreted by myself. Initial physical exam reveals diffuse tenderness on palpation of abdomen with normal active bowel sounds. Patient with jerking movement intermittently to right lower extremity which she reports she is unable to control. Sensations intact with 2+ pulses. Exam unremarkable Initial diagnostic plan: ACS workup including a CTA of chest, CT of abdomen and pelvis with contrast, Toradol for pain, Zofran for nausea, 324 mg of aspirin per ACS protocol EKG shows a sinus rhythm with a rate of 67. No ischemic changes are noted. Handoff of care given to ED attending Dr. Mata pending completion of patient's workup. <Savanna Mata, DO - Last Filed: 02/26/25 20:58> Vital Signs: 02/25/25 17:08 02/25/25 17:08 02/25/25 17:30 Temperature 98.5 F Temperature Source Oral Pulse Rate 67 83 Pulse Rate [Left Radial] 66 Respiratory Rate 17 Blood Pressure 181/90 H Blood Pressure [Right Arm] 168/93 H Blood Pressure Mean 120 Blood Pressure Mean [Right Arm] 118 Blood Pressure Source Blood Pressure Source [Right Arm] Automatic Cuff Blood Pressure Position Blood Pressure Position [Right Arm] Sitting 02 Sat by Pulse Oximetry 96 100 Oxygen Delivery Method Room Air 02/25/25 18:00 02/25/25 18:31 02/25/25 18:51 Temperature Temperature Source Pulse Rate 67 82 Pulse Rate [Left Radial] Respiratory Rate Blood Pressure 184/102 H 183/109 H 182/116 H Blood Pressure [Right Arm] Blood Pressure Mean 129 133 142 Blood Pressure Mean [Right Arm] Blood Pressure Source Blood Pressure Source [Right Arm] Blood Pressure Position Blood Pressure Position [Right Arm] 02 Sat by Pulse Oximetry 100 95 Oxygen Delivery Method 02/25/25 19:00 02/25/25 19:00 02/25/25 19:15 Temperature Temperature Source Pulse Rate 89 70 Pulse Rate [Left Radial] Respiratory Rate Blood Pressure 185/113 H Blood Pressure [Right Arm] Blood Pressure Mean 142 Blood Pressure Mean [Right Arm] Blood Pressure Source Blood Pressure Source [Right Arm] Blood Pressure Position Blood Pressure Position [Right Arm] 02 Sat by Pulse Oximetry 99 100 Oxygen Delivery Method 02/25/25 19:21 02/25/25 19:30 02/25/25 19:30 Temperature Temperature Source Pulse Rate 91 H Pulse Rate [Left Radial] Respiratory Rate Blood Pressure 188/115 H 197/111 H Blood Pressure [Right Arm] Blood Pressure Mean 136 133 Blood Pressure Mean [Right Arm] Blood Pressure Source Blood Pressure Source [Right Arm] Blood Pressure Position Blood Pressure Position [Right Arm] 02 Sat by Pulse Oximetry 100 Oxygen Delivery Method 02/25/25 19:45 02/25/25 19:57 02/25/25 20:30 Temperature Temperature Source Pulse Rate 93 H 91 H Pulse Rate [Left Radial] Respiratory Rate Blood Pressure 183/98 H Blood Pressure [Right Arm] Blood Pressure Mean 145 Blood Pressure Mean [Right Arm] Blood Pressure Source Blood Pressure Source [Right Arm] Blood Pressure Position Blood Pressure Position [Right Arm] 02 Sat by Pulse Oximetry 100 98 Oxygen Delivery Method 02/25/25 20:30 02/25/25 20:52 02/25/25 21:00 Temperature Temperature Source Pulse Rate 87 72 Pulse Rate [Left Radial] Respiratory Rate Blood Pressure 173/101 H Blood Pressure [Right Arm] Blood Pressure Mean 141 Blood Pressure Mean [Right Arm] Blood Pressure Source Blood Pressure Source [Right Arm] Blood Pressure Position Blood Pressure Position [Right Arm] 02 Sat by Pulse Oximetry 98 95 Oxygen Delivery Method 02/25/25 21:15 02/25/25 21:30 02/25/25 22:01 Temperature Temperature Source Pulse Rate 77 Pulse Rate [Left Radial] Respiratory Rate 15 14 Blood Pressure 147/94 H Blood Pressure [Right Arm] Blood Pressure Mean 126 Blood Pressure Mean [Right Arm] Blood Pressure Source Blood Pressure Source [Right Arm] Blood Pressure Position Blood Pressure Position [Right Arm] 02 Sat by Pulse Oximetry 96 Oxygen Delivery Method 02/25/25 22:04 Temperature 98.5 F Temperature Source Pulse Rate 77 Pulse Rate [Left Radial] Respiratory Rate 14 Blood Pressure 147/94 H Blood Pressure [Right Arm] Blood Pressure Mean Blood Pressure Mean [Right Arm] Blood Pressure Source Automatic Cuff Blood Pressure Source [Right Arm] Blood Pressure Position Sitting Blood Pressure Position [Right Arm] 02 Sat by Pulse Oximetry Oxygen Delivery Method Room Air Lab Data Lab Results 02/25/25 17:29: WBC 8.7, RBC 4.83, Hgb 14.7, Hct 43.1, MCV 89.2, MCH 30.4, MCHC 34.1, RDW 12.6, Plt Count 283, MPV 8.8, Neut % (Auto) 78.4, Lymph % (Auto) 13.5, [place] % (Auto) 7.0, Eos % (Auto) 0.3, Baso % (Auto) 0.5, Neut # (Auto) 6.8, Lymph # (Auto) 1.2, [place] # (Auto) 0.6, Eos # (Auto) 0.0, Baso # (Auto) 0.0, Sodium 130 L, Potassium 3.4 L, Chloride 96 L, Carbon Dioxide 25, Anion Gap 12.4, BUN 12, Creatinine 0.60, Estimated Creat Clear 60, Estimated GFR 99, Est GFR ( Amer) 120, Glucose 108 H, Calcium 9.9, Total Bilirubin 0.6, AST 40 H, ALT 24, Alkaline Phosphatase 86, Troponin I < 0.01, Total Protein 7.6, Albumin 4.7, Globulin 2.9, Albumin/Globulin Ratio 1.6 02/25/25 20:34: Troponin I < 0.01 02/25/25 20:38: Urine Color Yellow, Urine Appearance Clear, Urine pH 7.5, Ur Specific [place] 1.010, Urine Protein Negative, Urine Glucose (UA) Negative, Urine Ketones 1+, Urine Blood Negative, Urine Nitrate Negative, Urine Bilirubin Negative, Urine Urobilinogen 0.2, Ur Leukocyte Esterase Negative, Urine RBC Occasional, Urine WBC 3-5, Ur Squamous Epith Cells 3-5, Urine Bacteria 1+ Orders (Tests/Meds): ED MEDICATIONS Discontinued Medications Generic Name Dose Route Start Last Admin Trade Name Sunnyq PRN Reason Stop Dose Admin Aspirin 324 mg 02/25/25 17:21 02/25/25 18:41 Aspirin 81mg Chewable Tablet PO 02/25/25 17:22 324 mg ONCE ONE Administration Sodium Chloride 1,000 mls @ 999 mls/hr 02/25/25 18:37 02/25/25 21:15 Sod Chlor 0.9% 1000ml Bag IV 02/25/25 19:37 Infused .Q1H1M ONE Infusion Iopamidol 75 ml 02/25/25 18:39 02/25/25 18:41 Iopamidol-370 (76%);100ml Bottle IV 02/25/25 18:40 75 ml ONCE ONE Administration Ketorolac Tromethamine 15 mg 02/25/25 17:21 02/25/25 18:41 Ketorolac 15mg/Ml Vial IV 02/25/25 17:22 15 mg ONCE ONE Administration Lorazepam 0.5 mg 02/25/25 19:31 02/25/25 19:40 Lorazepam 0.5mg Tablet PO 02/25/25 19:32 0.5 mg ONCE ONE Administration Metoprolol Succinate 50 mg 02/25/25 19:31 02/25/25 19:40 Metoprolol Succinate Xl 50mg Tablet PO 02/25/25 19:32 50 mg ONCE ONE Administration Ondansetron HCl 4 mg 02/25/25 17:21 02/25/25 18:41 Ondansetron 4mg/2ml Vial IV 02/25/25 17:22 4 mg ONCE ONE Administration Ondansetron HCl 4 mg 02/25/25 19:11 02/25/25 19:40 Ondansetron 4mg/2ml Vial IV 02/25/25 19:12 4 mg ONCE ONE Administration Prochlorperazine Edisylate 5 mg 02/25/25 20:37 02/25/25 20:45 Prochlorperazine 10mg/2ml Vial IV 02/25/25 20:38 5 mg ONCE ONE Administration Sodium Chloride 10 ml 02/25/25 18:39 02/25/25 18:41 Sodium Chloride 0.9% 10ml Syr (Rad Only) IV 02/25/25 18:40 10 ml ONCE ONE Administration Sodium Chloride 50 ml 02/25/25 18:39 02/25/25 18:40 0.9 % Sodium Chloride 50 Ml Vial IV 02/25/25 18:40 50 ml ONCE ONE Administration ORDERS Category Date Time Status CT abdomen pelvis w con Stat Cat Scan 02/25/25 17:[address] angio chest PE protocol Stat Cat Scan 02/25/25 17:21 Completed Complete Blood Count Auto Diff Stat Lab 02/25/25 17:29 Completed Comprehensive Metabolic Panel Stat Lab 02/25/25 17:29 Completed Troponin I Q3H Lab 02/25/25 20:34 Completed Troponin I Stat Lab 02/25/25 17:29 Completed Urinalysis and Microscopic Stat Lab 02/25/25 20:38 Completed Medical Decision Narrative: Initial impression of presenting illness: 69-year-old female presents emergency department with complaints of right lower quadrant and right flank pain since last night. Reports she has a history of chronic low back pain with a spinal stimulator. She reports she has been seen in her primary care provider's office today for these complaints and was sent to [facility] for CT of abdomen however their wait time was too long so they came here for evaluation. She reports on the way here she started developing chest pain and became diaphoretic. She recently had a right knee replacement approximately 6 weeks ago and was on aspirin postop but is not taking medication for a while. Differential diagnosis includes but is not limited to: ACS, PE, urinary tract infection, pyelonephritis, kidney stone, acute exacerbation of chronic pain, complication from spinal cord stimulator Patient arrives hemodynamically stable, afebrile, without respiratory distress with vital signs interpreted by myself. Initial physical exam reveals diffuse tenderness on palpation of abdomen with normal active bowel sounds. Patient with jerking movement intermittently to right lower extremity which she reports she is unable to control. Sensations intact with 2+ pulses. Exam unremarkable Initial diagnostic plan: ACS workup including a CTA of chest, CT of abdomen and pelvis with contrast, Toradol for pain, Zofran for nausea, 324 mg of aspirin per ACS protocol EKG shows a sinus rhythm with a rate of 67. No ischemic changes are noted. Handoff of care given to ED attending Dr. Mata pending completion of patient's workup. Savanna Mata, DO I assumed care of the patient. CBC showed no leukocytosis, hemoglobin was stable. CMP was unremarkable. Initial troponin was less than 0.01, second troponin was less than 0.01. UA showed no evidence of infection. CT of the chest and abdomen showed no acute pulmonary embolism and CT abdomen showed no acute pathology. Patient was otherwise chest pain-free at this time the patient was appropriate for discharge home. Return precautions were discussed and patient was discharged home Critical Care <Sonia Hernandez - Last Filed: 02/25/25 18:39> Critical Care Time Critical Care Time: No
--- NOTE | 2025-02-25 17:10 | ECG_ITS ---
APPROVED REPORT Exam: Resting ECG HR:67 bpm ECG Measurements Heart Rate 67 AXES ID 157 P -15 QRSd 85 QRS 64 QT 435 T 61 QTc 450 Conclusion ELECTRONIC ATRIAL PACEMAKER ABNORMAL RHYTHM ECG UNCONFIRMED REPORT Electronically signed by : MARYAM CUI, 02/27/2025 07:46:26
--- OUTSIDE RECORDS SUMMARY | 2025-02-25 17:19 | XMS_ITS | Encounter Summary ---
Author Organization [facility] Address [address] [place] [address] Care Team Providers Care Store Merchandiser Name Role Phone Js Jack MD Primary Care Provider [phone] [phone] Encounter Details Date Type Department Care Team (Latest Contact Info) Description 02/19/2025 Travel Social History Tobacco Use Types Packs/Day Years Used Date Smoking Tobacco: Never Passive Smoke Exposure: Never Smokeless Tobacco: Never Alcohol Use Standard [...] or training? Not on file Preferred Language Romanian 12/26/2024 PHQ-2 Answer Date Recorded Patient Health [...] Info) Description 03/01/2025 11:00 AM EDT Appointment [facility] [place] [address] [facility] [address] [place] [phone] 03/01/2025 2:00 PM EDT Office Visit [facility] NEUROSURGERY [address] [facility] 301 [place] [address] Gaston Barnard MD [address] [facility] [address] [place] [address] 04/16/2025 1:00 PM EST Office Visit [facility] ORTHOPEDICS & SPORTS MEDICINE [address] [facility] 101 [place] [address] Brenton Hood MD 1760 [facility] 101 [place] [address] 05/20/2025 3:00 PM EST Office Visit [facility] NEUROLOGY [address] [facility] 160 [place] [phone] Casi Starr, DEVON [address] [facility] 160 [place] [address] documented as of this encounter Goals Goal Patient Goal Type Associated Problems Recent Progress Patient-Stated? Author Autogenera ivette Goal Care Plan Autogenerated Problem No Brenton Hood MD documented as of this encounter Visit Diagnoses Not on filedocumented in this encounter Additional Health Concerns Active Problems Noted Date Diagnosed Date Autogenerated Problem 02/09/2025 documented as of this encounter Care Teams Store Merchandiser Relationship Specialty Start Date End Date Guero, Js Starkey MD [address] [place] [address] PCP - General 01/27/15 documented as of this encounter
--- OUTSIDE RECORDS SUMMARY | 2025-02-25 17:19 | XMS_ITS | Clinical Summary ---
Author Organization Healthcare Address [address] [place] [address] Care Team Providers Care Make Up Worker Name Role Phone Js Jack MD Primary Care Provider [phone] Family History Medical History Relation Name Comments [...] 2004 [facility]-Zoster Vaccines (1 of 2) 2004 [id number] Vaccine (1 - 20 24-25 season) 2025 [facility]-Influenza Vaccine (#1) 2025 [facility]-RSV Vaccine: 60+ [...] age to complete this topic Care Teams Make Up Worker Relationship Specialty Start Date End Date Js Jack MD [address] [place] [address] PCP - General 10/24/20
--- OUTSIDE RECORDS SUMMARY | 2025-02-25 17:20 | XMS_ITS | Clinical Summary ---
Author Organization [facility] Address [address] [facility] [address] [place] [phone] Phone Care Team Providers Care Senior Corporate Accountant Name Role Phone W, Sulma Unavailable Unavailable Conditions or Problems Problem Name Problem Code Onset Date Status Entry Date Provider Comment Standard Description Annotate Sepsis 34180652 (SNOMED CT) 07/06 Resolved 07/06 Sulma W Sepsis Sepsis 38975150 (SNOMED CT) 07/06 Removed 07/06 Jaya Cali MD Sepsis Sepsis 58897895 (SNOMED CT) 06/27 Inactive 06/27 Sulma W Sepsis Leukocytosis 205969367 (SNOMED CT) 06/27 Active 06/27 Jaya Cali MD Leukocytosis Sepsis 95851623 (SNOMED CT) 06/27 Removed 06/27 Jaya Cali MD Sepsis Nausea 135908026 (SNOMED CT) 06/26 Active 06/26 Zari Tapia Nausea ARF with tubular necrosis 063844411149 101 (SNOMED CT) 06/26 Active 06/26 Zari Tapia Acute renal failure due to tubular necrosis Hypokalemia 30552712 (SNOMED CT) 06/26 Active 06/26 Zari Tapia Hypokalemia Abscess, intra-abdomi nal 21260737 (SNOMED CT) 06/26 Active 06/26 Zari Tapia Acute bacterial peritonitis Medications Medication Instructions Start Date Stop Date Generic Name [facility] Provider INVANZ 1 GM INJECTION SOLUTION RECONSTITUTED Invanz 1GM IV Q24hrs - INPAT ERTAPENEM SODIUM [id number] Sandy Ledezma RN INVANZ 1 GM INJECTION SOLUTION RECONSTITUTED Invanz 1G IV Q24hrs- INPAT ERTAPENEM SODIUM 52800973254 Ana María Recinos INVANZ 1 GM INJECTION SOLUTION RECONSTITUTED Invanz 1GM IV Q24hrs - INPAT ERTAPENEM SODIUM 47863584174 Ramona Messer INVANZ 1 GM INJECTION SOLUTION RECONSTITUTED Invanz 1G IV Q24hrs- INPAT ERTAPENEM SODIUM 60982959361 Martha Roe ROSUVASTATIN CALCIUM 20 MG TABS once daily ROSUVASTATIN CALCIUM 33658699759 Haileyshagufta Mensah CLIMARA 0.05 MG/24HR PTWK once weekly ESTRADIOL 26948240818 Hailey Menash KOMBIGLYZE XR 5-1000 MG ORAL TABLET EXTENDED RELEASE 24 HOUR once daily SAXAGLIPTIN-MET FORMIN 27985619120 Hailey Mensah HYDROXYZINE HCL 25 MG TABS one daily HYDROXYZINE HCL 47034716200 Hailey Micheli ASPIRIN 81 MG CHEW one tablet daily ASPIRIN 29542290784 Hailey Micheli COZAAR 50 MG TABS one daily LOSARTAN POTASSIUM 45168512108 Hailey Mensah METOPROLOL SUCCINATE ER 50 MG [id number] one time daily METOPROLOL SUCCINATE 40937708929 Hailey Mensah NEXIUM 20 MG PACK one tablet three times daily ESOMEPRAZOLE MAGNESIUM 31334299349 Hailey Mensah Medications Administered No information available. [...] in Serum or Plasma Lab Report: COMPREHENSIVE VA TABOLIC PANEL ANIONGAP 11.0 mmol/L 5.0-15.0 anion [...]
--- OUTSIDE RECORDS SUMMARY | 2025-02-25 17:20 | XMS_ITS | Patient Health Record ---
Author Organization [facility] Address [address] [facility] [address] [place] [address] Care Team Providers Care Wool Hat Finisher Name Role Phone Clara Crawford Unavailable [phone] Allergies Allergen (clinical drug ingredient) Drug/Non Drug Allergy documented on EMR Reaction Allergy Type Onset Date Status eszopiclone LUNESTA (uncoded) Unspecified Allergy 01/07/20 Active Reason For Referral No Information Problems Problem Type SNOMED Code ICD Code Onset Dates Problem Status W/U Status Risk Notes Problem Hormone replacement therapy (366755100) Counseling for estrogen replacement therapy (Z79.890) 01/07/20 Active confirmed HRT Problem Gynecological examination normal (156471873824932 ) Cervical smear, as part of routine [...]
--- OUTSIDE RECORDS SUMMARY | 2025-02-25 17:20 | XMS_ITS | Encounter Summary ---
Author Organization [facility] Address [address] [place] [address] Care Team Providers Care Mercerizer Name Role Phone Js Jack MD Primary Care Provider [phone] Encounter Details Date Type Department Care Team (Late st Contact Info) Description 01/02/2025 Pre-Procedure Screening [facility] ORTHOPEDICS & SPORTS MEDICINE [address] [place], [place] [id number] Marine Nieves Social History Tobacco Use Types Packs/Day Years Used Date Smoking Tobacco: Never Smokeless Tobacco: Never Alcohol Use Standard Drinks/Week Comments Yes 10 (1 standard drink = 0.6 oz pu re alcohol) 1-2 GLASSES OF RED WINE AUDIT-C Answer Date Recorded Q1: How often do you have a drink containing alcohol? 4 or more times a week 08/24/2022 Q2: How many drinks containi ng alcohol do you have on a typical day when you are drinking? 1 or 2 Q3: How often do you have si x or more drinks on one occasion? Never 08/24/2022 PHQ-2 Answer Date Recorded Retired PHQ-9: Brief Depression Severity Measure Score 0 04/21/2023 Abuse Screen Answer Date Recorded Feels Unsafe at Home or Work/School no 12/26/2024 Feels Threatened by Someone no 12/11 Does Anyone Try to Keep You From Having Contact with Others or Doing Things Outside Your Home? no 12/26/2024 Physical Signs of Abuse Present no 12/26/2024 Housing Stability Answer Date Recorded Current Living Arrangements home 08/2023 Potentially Unsafe Housing Conditions Not on rowena e 06/15/2023 Disabilities Answer Date Recorded Difficulty Concentrating, Remembering or Making Decisions no 06/15/2023 Difficulty Managing Errands Independently no 06/15/2023 Education Answer Date Recorded Help with school or training? Not on file Preferred Language Paraguayan 12/26/2024 PHQ-2 Answer Date Recorded Retired PHQ-9: Brief Depression Severity Measure Score 0 01/10/2024 Comments No Sex and Gender Information Value Date Recorded Sex Assigned at Female 01/28/2025 9:25 PM EDT Legal Sex Female 10:01 AM EDT Gender Identity Not on file Sexual Orientation Not on file documented as of this encounter Miscellaneous Notes * Telephone Encounter - Marine Nieves - 01/02/2025 2:40 PM EDT TOTAL JOINT REPLACEMENT CARE NAVIGATION INITIAL ASSESSMENT PATIENT INFORMATION: Patient: Bianca Berrios Date of : 1955 Age/Gender: 69 y.o. female Surgery: R TKA Surgery Date: 01/09/25 Surgeon: Dr. Hood Physical Therapy Location: [facility] PT Date & Time: 01/11/25 @ 11am DVT PPX: ASA 81mg BID DISCHARGE PLAN: 23 hour stay LIVING SITUATION: [x]Private Residence Who lives in the home? []Fci: []Assisted Living []Rehabilitation Facility: []Live Alone []Homeless HOUSING STYLE: [x]Ranch Style []Multi-level []Split level []Townhouse []Apartment Do you have steps to navigate in the home? No Do you have steps to navigate outside the home? 5-6 steps ADL: [x]Independent []Independent with difficulty []Partially Dependent []Dependent Do you require bathing/showering? Do you require assistance with grooming (brushing hair, shaving, etc)? Do you require assistance dressing? Do you require assistance with walking? Do you require assistive devices while walking (cane, walker, wheelchair)? Do you require assistance with transfers (moving from bed to chair, wheelchair, etc)? Do you require assistance preparing meals? Do you require assistance when eating meals? Do you require assistance to use the toilet? Do you have any issues with bowel or bladder incontinence? Do you require assistance with superintendent division (cleaning, laundry, etc)? Have you had any recent falls? Yes-couple falls (tripped/fell over a piece of furniture that had recently been moved; Fall while trying to get into bed) CURRENT SERVICES: []Home Health (PT, OT, Jail) Agency: County: []Palliative Care []Meals on Wheels []Daily Caregiver [x]None CURRENT DME: []Walker []Cane []Wheelchair []Crutches []Bedside Commode []Shower Chair []Hospital Bed []Nebulizer []Oxygen []Other: MEDICATIONS: Are you currently on any blood thinners? No Are you currently on any anti-inflammatory medications? No Are you currently on any medications for rheumatoid arthritis? No Are you currently taking any herbal supplements? [id number] hold 1 week prior Post-op Pharmacy Name: [facility] Phone Number: Does anyone assist you filling medication boxes or remind you that medication is due? Are you currently on a mail order prescription plan? What pharmacy do you use to fill your short-term prescriptions? [facility] Do you have prescription insurance coverage? Can you afford your medications/co-pays? CURRENT TRANSPORTATION: Which services do you rely on? []Taxi []Public Transportation [x]Private Vehicle []Ambulance []Tack (Transportation Assistance [facility]) Do you have a way to get home when you are discharged? Yes-, Santiago POTENTIAL NEEDS: []Rehabilitation []Home Health PT []SNF []Meals on Wheels []Department of Color Television Console Monitor []Palliative Care []Fci []Hospice [x]Durable Medical Equipment-has a cane, walker, and elevated toilet seat;Educated on shower chair. []Caregiver Services []Financial Services []Pre-op In Home PT Evaluation CLEARANCES NEEDED FOR SURGERY: Dental clearance: received 11/27/24 [x]Dental []Cardiology []Pulmonology []Medical (PCP) []Rheumatology []Endocrinology []Hematology/Oncology []Neurology []Neurosurgery []CT Vascular INITIAL DISCHARGE PLAN: Plan for 23 hour stay; Patient's , Santiago, will be surgery ups driver, aswell as, assisting in post-op care. Patient has a cane, walker, and elevated toilet seat. Educated on shower chair. Patient informed about [facility] program. Post-op PT scheduled with Alessandro Quiroz on 01/11/25 @ 11am. documented in this encounter Plan of Treatment Upcoming Encounters Date Type Department Care Team (Late st Contact Info) Description 03/01/2025 11:00 AM EDT Appointment [facility] MRI [place] [address] [facility] [address] [place] [address] 03/01/2025 2:00 PM EDT Office Visit [facility] NEUR[facility]URGERY [address] [facility] 301 [place] [address] Gaston Barnard MD [address] [facility] 301 [place] [address] 04/16/2025 1:00 PM EST Office Visit [facility] ORTHOPEDICS & SPORTS MEDICINE [address] [facility] 101 [place] [address] Brenton Hood MD 1760 [facility] 101 [place] [address] 05/20/2025 3:00 PM EST Office Visit [facility] NEUROLOGY [address] [facility] 160 [place] [address] Casi Starr, SUPERVISOR FUR FLOOR WORKER [address] [facility] 160 [place] [address] documented as of this encounter Goals Goal Patient Goal Type Associated Problems Recent Progress Patient-Stated? Author Autogenera ivette Goal Care Plan Autogenerated Problem No Brenton Hood MD documented as of this encounter Visit Diagnoses Not on filedocumented in this encounter Additional Health Concerns Active Problems Noted Date Diagnosed Date Autogenerated Problem 02/09/2025 documented as of this encounter Care Teams Mercerizer Relationship Specialty [place] [address] [place] [address] PCP - General 01/27/15 documented as of this encounter
--- OUTSIDE RECORDS SUMMARY | 2025-02-25 17:20 | XMS_ITS | Encounter Summary ---
Author Organization [facility] Address [address] [place] [address] Care Team Providers Care Disbursing Agent Name Role Phone Js Jack MD Primary Care Provider [phone] Reason for Visit * Reason Comments Med Refill Encounter Details Date Type Department Care Team (Late st Contact Info) Description 02/18/2025 Refill [facility] MEDICAL [facility] PAIN MANAGEMENT [address] [facility] [address] [place] [address] Swapnil Herron MD [address] [facility] [address] [place] [phone] Lumbar stenosis with neurogenic claudication Social History Tobacco Use Types Packs/Day Years [...] or training? Not on file Preferred Language Malaysian 12/26/2024 PHQ-2 Answer Date Recorded Patient Health [...] Info) Description 03/01/2025 11:00 AM EDT Appointment [address] [place] [address] 03/01/2025 2:00 PM EDT Office Visit [facility] NEUR[facility]ERY [address] [facility] [address] [place] [phone] Gaston Barnard MD [address] [facility] [address] [place] [phone] 04/16/2025 1:00 PM EST Office Visit [facility] ORTHOPEDICS & SPORTS MEDICINE [address] [facility] [address] [place] [phone] Brenton Hood MD 1760 [facility] 101 [place] [address] 05/20/2025 3:00 PM EST Office Visit [facility] NEUROLOGY [address] [facility] 160 [place] [phone] Casi Starr, LAY BROTHER 1775 [facility] 160 [place] [address] documented as of this encounter Goals Goal Patient Goal Type Associated Problems Recent Progress Patient-Stated? Author Autogenera ivette Goal Care Plan Autogenerated Problem No Brenton Hood MD documented as of this encounter Visit Diagnoses Diagnosis Lumbar stenosis with neurogenic claudication documented in this encounter Additional Health Concerns Active Problems Noted Date Diagnosed Date Autogenerated Problem 02/09/2025 documented as of this encounter Care Teams Disbursing Agent Relationship Specialty Start Date End Date Js Jack MD [address] [facility] [address] [place] [address] PCP - General 01/27/15 documented as of this encounter
--- OUTSIDE RECORDS SUMMARY | 2025-02-25 17:20 | XMS_ITS | Encounter Summary ---
[facility] Address [address] [place] [address] Care Team Providers Care Indirect Fire Infantryman Name Role Phone Js Jack MD Primary Care Provider [phone] [phone] Encounter Details Date Type Department Care Team (Latest Contact Info) Description 01/09/2025 Travel Social History Tobacco Use Types Packs/Day [...] or training? Not on file Preferred Language Micronesian 12/26/2024 PHQ-2 Answer Date Recorded Retired PHQ-9: [...] No 01/09/2025 6:17 AM EDT Glenny Pruett, ZOHREH 2. Non-Specific Active Suici serge Thoughts (Past 1 Month) No 01/09/2025 6:17 AM EDT Oralia Pruett RN * Calculated C-SSRS Risk Score (Lifetime/Recent) Answer Date of Assessment Author No Risk Indicated 01/09/2025 6:17 AM EDT Glenny Yu RN * [place] Suicide Severity Rating Scale (Screener/Recent Self-Report) Question Answer Date of Assessment Author 6. Suicidal Behavior (Lifetime) No 6:17 AM EDT Glenny Pruett, ZOHREH documented as of this encounter Plan of Treatment Upcoming Encounters Date Type Department Care Team (Late st Contact Info) Description 03/01/2025 11:00 AM EDT Appointment [address] [place] [address] 03/01/2025 2:00 PM EDT Office Visit [facility] NEUROSURGERY [address] [facility] 301 [place] [address] Gaston Barnard MD [address] [facility] [address] [place] [phone] 04/16/2025 1:00 PM EST Office Visit [facility] ORTHOPEDICS & SPORTS MEDICINE [address] [facility] 101 [place] [address] Brenton Hood MD 1760 [facility] 101 [place] [address] 05/20/2025 3:00 PM EST Office Visit [facility] NEUROLOGY [address] [facility] 160 [place] [address] Ro Casijoseph Giron, SEE WHEELER [address] [facility] 160 [place] [address] documented as of this encounter Goals Goal Patient Goal Type Associated Problems Recent Progress Patient-Stated? Author Autogenera ivette Goal Care Plan Autogenerated Problem No Brenton Hood MD documented as of this encounter Visit Diagnoses Not on filedocumented in this encounter Additional Health Concerns Active Problems Noted Date Diagnosed Date Autogenerated Problem 02/09/2025 documented as of this encounter Care Teams Indirect Fire Infantryman Relationship Specialty Start Date End Date Js Jack MD [address] [facility] [address] [place] [phone] PCP - General 01/27/15 documented as of this encounter
--- OUTSIDE RECORDS SUMMARY | 2025-02-25 17:20 | XMS_ITS | Encounter Summary ---
Author Organization [facility] Address [address] [place] [address] Care Team Providers Care Hand Stonecutter Name Role Phone Js Jack MD Primary Care Provider [phone] Reason for Visit * Reason Onset Date Comments 1 week post-op call 01/16/2025 Encounter Details Date Type Department Care Team (Late st Contact Info) Description 01/16/2025 Telephone [facility] ORTHOPEDICS & SPORTS MEDICINE [address]60 [place] [address] Brenton Hood MD [address]60 [place] [address] 1 week post-op call Social History Tobacco Use Types Packs/Day Years [...] or training? Not on file Preferred Language Cook Islander 12/26/2024 PHQ-2 Answer Date Recorded Retired PHQ-9: Brief Depression Severity Measure Score 0 01/10/2024 Comments No Sex and Gender Information Value Date Recorded Sex Assigned at Female 01/28/2025 9:25 PM EDT Legal Sex Female 10:01 AM EDT Gender Identity Not on file Sexual Orientation Not on file documented as of this encounter Miscellaneous Notes * Telephone Encounter - Marine Nieves - 01/16/2025 9:21 AM EDT Post-op Call # of days out from surgery: 7 days s/p R TKA Pain: 09/20 Swelling: Icing with ice machine (several sessions a day). Encouraged her to elevate the leg higherthan the heart to reduce the swelling as much as possible. Current medications: Oxycodone PRN, Tylenol & Mobic as prescribed Any refills needed: N/A Incision: Understands to remove post-op bandage today and assess for drainage; If none present, mayleave incision open to the air. Will wait 3 days before showering. [facility], [facility] times DVT prophylaxis: ASA 81mg BID documented in this encounter Plan of Treatment Upcoming Encounters Date Type Department Care Team (Late st Contact Info) Description 03/01/2025 11:00 AM EDT Appointment [facility] MRI [place] [address] [facility] [address] [place] [address] 03/01/2025 2:00 PM EDT Office Visit [facility] MEDICAL [facility] NEUROSURGERY [address] [place] [address] [address] [place] [address] Gaston Barnard MD [address]60 [facility] [address] [place], [place] [address] 04/16/2025 1:00 PM EST Office Visit [facility] ORTHOPEDICS & SPORTS MEDICINE [address] [facility] [address] [place] [address] Brenton Hood MD 1760 [facility] 101 [place] [address] 05/20/2025 3:00 PM EST Office Visit [facility] NEUROLOGY 1775 [facility] 160 [place] [address] Casi Starr, DEVON 1775 [facility] 160 [place] [address] documented as of this encounter Goals Goal Patient Goal Type Associated Problems Recent Progress Patient-Stated? Author Autogenera ivette Goal Care Plan Autogenerated Problem No Brenton Hood MD documented as of this encounter Visit Diagnoses Not on filedocumented in this encounter Additional Health Concerns Active Problems Noted Date Diagnosed Date Autogenerated Problem 02/09/2025 documented as of this encounter Care Teams Hand Stonecutter Relationship Specialty Start Date End Date Js Jack MD [address] [facility] [address] [place] [address] PCP - General 01/27/15 documented as of this encounter
--- OUTSIDE RECORDS SUMMARY | 2025-02-25 17:20 | XMS_ITS | Encounter Summary ---
[facility] [address] [place] [address] Care Team Providers Care Mobile Equipment Mechanic Name Role Phone Js Jack MD Primary Care Provider [phone] Encounter Details Date Type Department Care Team (Latest Contact Info) Description 01/29/2025 Travel Social History Tobacco Use Types Packs/Day [...] or training? Not on file Preferred Language Barbadian 12/26/2024 PHQ-2 Answer Date Recorded Patient Health [...] Info) Description 03/01/2025 11:00 AM EDT Appointment [facility] [place] [address] [facility] [address] [place] [id number] 03/01/2025 2:00 PM EDT Office Visit [facility] NE[facility]ERY [address] [facility] [address] [place] [address] Gaston Barnard MD [address] [facility] [address] [place] [address] 04/16/2025 1:00 PM EST Office Visit [facility] ORTHOPEDICS & SPORTS MEDICINE [address] [facility] [address] [place] [address] Brenton Hood MD [address] [facility] [address] [place] [address] 05/20/2025 3:00 PM EST Office Visit [facility] NEUROLOGY [address] [facility] [address] [place] [id number] Casi Starr, [employer]ER [address] [facility] [address] [place] [address] documented as of this encounter Goals Goal Patient Goal Type Associated Problems Recent Progress Patient-Stated? Author Autogenera ivette Goal Care Plan Autogenerated Problem No Brenton Hood MD documented as of this encounter Visit Diagnoses Not on filedocumented in this encounter Additional Health Concerns Active Problems Noted Date Diagnosed Date Autogenerated Problem 02/09/2025 documented as of this encounter Care Teams Mobile Equipment Mechanic Relationship Specialty Start Date End Date Js Jack MD [address] [place], [place] [address] [address] PCP - General 01/27/15 documented as of this encounter
--- NOTE | 2025-02-25 17:21 | CT_ITS ---
PROCEDURE INFORMATION: Exam: CTA Chest With Contrast Exam date and time: 02/25/2025 6:39 PM Age: 69 years old Clinical indication: Pain; Other: Cp TECHNIQUE: Imaging protocol: Computed tomographic angiography of the chest with contrast. Exam focused on the arteries. 3D rendering (Not supervised by radiologist): MIP and/or 3D reconstructed images were created by the technologist. Radiation optimization: All CT scans at this facility use at least one of these dose optimization techniques: automated exposure control; mA and/or kV adjustment per patient size (includes targeted exams where dose is matched to clinical indication); or iterative reconstruction. Contrast material: ISOVUE; Contrast volume: 75 ml; Contrast route: INTRAVENOUS (IV); COMPARISON: CT HIGH RESOLUTION CHEST 08/28/2021 1:53 PM FINDINGS: Tubes, catheters and devices: Intraspinal stimulator device in place. Pulmonary arteries: Normal. No pulmonary emboli. Aorta: Unremarkable. No aortic aneurysm. No aortic dissection. Lungs: Minimal bibasilar atelectasis. Small cluster of tree-in-bud ground-glass nodules within the periphery of the right lower lobe, likely minimal bronchopneumonia. Depression. Pleural spaces: Unremarkable. No pneumothorax. No pleural effusion. Heart: Unremarkable. No cardiomegaly. No pericardial effusion. Lymph nodes: Multiple calcified lymph nodes throughout the mediastinum and nolan, likely secondary to prior granulomatous disease. Diaphragm: Small-sized hiatal hernia. Liver: Hepatic calcifications, compatible with prior granulomatous disease. Spleen: Splenic calcifications, compatible with prior granulomatous disease. Bones/joints: Multilevel thoracic spine degenerative disc space narrowing and osteophyte formation. Degenerative changes of the acromioclavicular and glenohumeral joints. Soft tissues: Unremarkable. IMPRESSION: No acute findings.
--- NOTE | 2025-02-25 17:21 | CT_ITS ---
PROCEDURE INFORMATION: Exam: CT Abdomen And Pelvis With Contrast Exam date and time: 02/25/2025 6:39 PM Age: 69 years old Clinical indication: Abdominal pain; Flank; Right lower quadrant (rlq); Additional info: Rlq/flank pain TECHNIQUE: Imaging protocol: Computed tomography of the abdomen and pelvis with contrast. 3D rendering (Not supervised by radiologist): MIP and/or 3D reconstructed images were created by the technologist. Radiation optimization: All CT scans at this facility use at least one of these dose optimization techniques: automated exposure control; mA and/or kV adjustment per patient size (includes targeted exams where dose is matched to clinical indication); or iterative reconstruction. Contrast material: ISOVUE; Contrast volume: 75 ml; Contrast route: IV; COMPARISON: CT ABDOMEN PELVIS W CON 04/21/2019 12:18 PM FINDINGS: Tubes, catheters and devices: Intraspinal stimulator device partially visualized. Lungs: Small cluster of tree-in-bud ground-glass nodules within the right lower lobe, likely minimal bronchopneumonia. Diaphragm: Small-sized hiatal hernia. Liver: Hepatic calcifications, compatible with prior granulomatous disease. Gallbladder and biliary ducts: Normal. Pancreas: Normal. Spleen: Splenic calcifications, compatible with prior granulomatous disease. Adrenal glands: Normal. No mass. Kidneys and ureters: Normal. Stomach and bowel: Moderate amount of stool throughout the colon, suggesting constipation. No obstruction. Appendix: Appendix normal. Intraperitoneal space: Unremarkable. No free air. No significant fluid collection. Vasculature: Atherosclerotic disease of the abdominal aorta and iliac arteries. Phleboliths within the pelvis. Lymph nodes: Calcified right hilar and subcarinal lymph nodes, compatible with prior granulomatous disease. Urinary bladder: Mild urinary bladder distension. Reproductive: Unremarkable as visualized. Bones/joints: Levoscoliosis of the lumbar spine. Multilevel degenerative disc disease. Scoliosis of the thoracolumbar spine. Soft tissues: Normal. IMPRESSION: 1. Small cluster of tree-in-bud ground-glass nodules within the right lower lobe, likely minimal bronchopneumonia. 2. Moderate amount of stool throughout the colon, suggesting constipation. No obstruction.
--- OUTSIDE RECORDS SUMMARY | 2025-02-25 17:21 | XMS_ITS | Clinical Summary ---
[facility] Organization [facility] Address [address] [place] [address] Care Team Providers Care Business Control Manager Name Role Phone Angel Luis Jack MD Primary Care Provider [phone] Allergies Active Allergy Reactions Criticality Noted Date Comments Eszopiclone Anaphylaxis High 04/01/2016 Medications estradiol (CLIMARA) 0.05 MG/24HR patch Place 1 patch on the skin as directed by provider 1 (One) Time Per Week. Tuesday11/03/19 16 Active rosuvastatin (CRESTOR) 20 MG tablet Take 1 tablet by mouth Every Night. Active Coenzyme Q10 (COQ10 PO) Take 300 mg by mouth Every Night. Active Gabapentin Enacarbil (HORIZANT PO) Take 1 tablet by mouth Every Evening. Active Cholecalciferol (vitamin D3) 125 MCG (5000 UT) tablet tablet Take 1 tablet by mouth Daily. Active pantoprazole (PROTONIX) 40 MG EC tablet Take 1 tablet by mouth Daily. Active vitamin B-6 (PYRIDOXINE) 100 MG tabletIndicatio ns:Lumbar stenosis with neurogenic claudication Take 1 tablet by mouth Daily. 30 tablet 03/03/20 23 Active DULoxetine (CYMBALTA) 60 MG capsule Take 1 capsule by mouth Every Night. 04/22/20 23 Active amLODIPine (NORVASC) 5 MG tablet Take 1 tablet by mouth Every Night. 08/16/19 24 Active LORazepam (ATIVAN) 0.5 MG tablet TAKE ONE TABLET BY MOUTH EVERY 4 TO 6 HOURS NEEDED MAY CAUSE DROWSINESS max 3 tablets PER day 10/19/19 25 Active metoprolol succinate XL (TOPROL-XL) 50 MG 24 hr tablet Take 1 tablet by mouth Every Night. 10/31/19 Active hydroCHLOROthia zide 25 MG tablet Take 1 tablet by mouth Every Night. 10/16/19 Active Probiotic Product (PROBIOTIC ADVANCED PO) Take 1 capsule by mouth Daily. Active multivitamin with minerals (MULTIVITAMIN ADULTS 50+ PO) Take 1 tablet by mouth Daily. Active levocetirizine (XYZAL) 5 MG tablet Take 1 tablet by mouth Every Evening. Active FAMOTIDINE PO Take 40 mg by mouth Every Night. Active Magnesium Chloride (MAGNESIUM DR PO) Take 1 tablet by mouth Every Night. Active melatonin 5 MG tablet tablet Take 1 tablet by mouth Every Night. Active Melatonin-Pyrid oxine 5-1 MG tablet Take 5 mg by mouth Daily. Active Dietary Management Product (Rheumate) capsuleIndicati ons:Lumbar stenosis with neurogenic claudication Take one capsule by mouth once daily 90 capsule 2 02/19/20 Active Dietary Management Product (Rheumate) capsuleIndicati ons:Lumbar stenosis with neurogenic claudication Take 1 capsule by mouth Daily. 90 capsule 2 06/20/19 025 Discontinued oxyCODONE (ROXICODONE) 5 MG immediate release tabletIndicatio ns:S/P TKR (total knee replacement), right Take 1 tablet by mouth Every 4 (Four) Hours As Needed for Severe Pain. 40 tablet 5 3:24 PM EDT 01/10/20 025 Discontinued(* Therapy completed) ropivacaine (NAROPIN) 0.2 % infusion (INFUSYSTEM) 4 mg/hr by Peripheral Nerve route Continuous. 01/11/20 025 Discontinued(* Therapy completed) meloxicam (MOBIC) 15 MG tablet Take 1 tablet by mouth Daily for 15 days. 15 tablet 5 3:24 PM EDT 01/12/20 025 aspirin (ASPIR) 81 MG EC tablet Take 1 tablet by mouth 2 (Two) Times a Day. 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 01/10/2024 Lumbar radiculopathy 05/31/2023 Lumbar radiculopathy, right 05/31/2023 Greater trochanteric bursitis of right hip 03/03 Lumbar postlaminectomy syndrome 03/03/2023 Iliotibial band syndrome of right side Gait disturbance 03/03/2023 Physical deconditioning 03/03/2023 Postoperative urinary retention 08/25/2022 Acute postoperative pain 08/25/2022 Nontraumatic complete tear of left rotator cuff 08/24/2022 Hyperlipidemia 08/24/2022 MILEY (obstructive sleep apnea) 08/24/2022 S/P left rotator cuff repair, 08/24/22 08/24/2022 Overview (08/24/2022): Left arthroscopic rotator cuff repair Left arthroscopic limited debridement including debridement of the long head of the biceps and superior labrum HNP (herniated nucleus pulposus), lumbar 020 Accelerated hypertension 04/21/2019 S/P BSO (bilateral salpingo-oophorectomy) 2018 Nausea & vomiting 04/21/2019 Spondylosis of lumbar region without myelopathy or radiculopathy 05/26/2017 Synovial cyst of lumbar facet joint 05/25/2017 Lumbar stenosis with neurogenic claudication Scoliosis (and kyphoscoliosis), idiopathic 05/20 Overview (03/13/2021): Added automatically from request for surgery [id number] Regulatory DX Update Acquired spondylolisthesis 05/20/2017 Overview (05/20/2017): Added automatically from request for surgery [id number] Synovial cyst 05/20/2017 Overview (05/20/2017): Added automatically from request for surgery [id number] Degeneration of lumbar or lumbosacral interverte bral disc 05/20/2017 Overview (05/20/2017): Added automatically from request for surgery [id number] Gastroesophageal reflux disease without esophagi tis 08/25/2016 Dysphagia 08/25/2016 Esophageal dysmotility 08/25/2016 Benign meningioma 05/27/2016 Cough 11/19/2015 GERD (gastroesophageal reflux disease) 6 Overview (04/09/2016): Description: A. History of prior Vidhya fundoplication. HTN (hypertension) 11/19/2015 Overview (04/01/2016): High BP LAD (lymphadenopathy), mediastinal 11/19/2015 Overview (11/19/2015): Description: A. CT scan of the chest 04/01/2014 reports mediastinal and hilar adenopathy bilaterally with the largest lymph node measuring 2.3 cm. Findings appear stable over prior studies dating back to nearly 2 years. There is increased calcification on most recent CAT scan of 2015 but no new abnormalities. Resolved Problems Problem Noted Date Diagnosed Date Resolved Date Arthritis of knee 11/13/2024 01/09/2025 Primary osteoarthritis of right knee 11/13/2024 01/09/2025 Leukocytosis 04/21/2019 04/26/2019 Fever 04/21/2019 04/26/2019 Encounters Date Type Department Care Team Description 02/19/2025 2:10 PM EDT Office Visit [facility] ORTHOPEDICS & [facility]TS MEDICINE [address] [facility] [facility] [address] [address] [place] [address] Brenton Hood MD Status post total right knee replacement (Primary Dx) 02/19/2025 Travel 02/18/2025 Refill [facility] PAIN MANAGEMENT [address] [place] [address] Swapnil Herron MD Lumbar stenosis with neurogenic claudication 01/29/2025 1:30 PM EDT Office Visit [facility] ORTHOPEDICS & [facility]TS MEDICINE [address] [facility] [facility] [address] [address] [place] [address] Kaylin Alcantara PA-C Status post total right knee replacement (Primary Dx) 01/29/2025 Travel 01/16/2025 Telephone [facility]THOP[facility]ICS [facility]TS MEDICINE [address] [address] Brenton Hood MD 1 week post-op call 01/09/2025 9:10 AM EDT Anesthesia Event Converted [facility] AN[facility]ESIA [address] [facility] [place] [place] [address] 01/09/2025 7:18 AM EDT Anesthesia Event [facility] OR [address] [facility] [place] [address] Maurice Brownlee MD 01/09/2025 7:15 AM EDT - 01/09/2025 9:50 AM EDT Surgery [facility] OR [address] [facility] [place] [place] [address] Brenton Hood MD TOTAL KNEE ARTHROPLASTY WITH ERIN ROBOT [64051 (CPT )] 01/09/2025 5:41 AM EDT - 01/10/2025 4:15 PM EDT Hospital Encounter [facility] 3H [address] [place] [address] Brenton Hood MD S/P TKR (total knee replacement), right (Primary Dx); Primary osteoarthritis of right knee Discharge Disposition: Home or Self Care 01/09/2025 Travel 01/02/2025 Pre-Procedure Screening [facility] [address] [address] Marine Nieves 12/26/2024 12:30 PM EDT Pre-Admission Testing [facility] PREADMISSION T [address] [place] [address] Primary osteoarthritis of right knee 12/26/2024 Travel from Last 3 Months Immunizations Immunization Administration Dates Next Due COVID-19 (MODERNA) BIVALENT 12+YRS 04/09/2022 COVID-19 (MODERNA) Monovalent Original Booster 1 Family History Medical History Relation Name Comments Arthritis Mother Mother Cancer Mother Mother Colon cancer ag e 68 Colon cancer Mother Mother Hyperlipidemia Mother Mother Hypertension Mother Mother Stroke Mother Mother Diabetes Sister 1 Sister Cindy Diabetes Sister 2 Sister Relation Name Status Comments Mother Mother Sister 1 Sister Cindy Sister 2 Sister Alive Social History Tobacco Use Types Packs/Day Years [...] or training? Not on file Preferred Language Bulgarian 12/26/2024 PHQ-2 Answer Date Recorded Patient Health [...] Pulse 65 01/10/2025 6:22 AM EDT Temperature 36.3 C (97.3 F) 01/29/2025 1:14 PM EDT Respiratory Rate 16 01/10/2025 6:22 AM EDT Oxygen Saturation 95% 01/10/2025 6:22 AM EDT Inhaled Oxygen Concentration - - Weight 72.1 kg (159 lb) 01/09/2025 6:16 AM EDT Height 161.3 cm (5' 3.5 ) 01/09/2025 6:16 AM EDT Body Mass Index 27.72 01/09/2025 6:16 AM EDT Plan of Treatment Upcoming Encounters Date Type Department Care Team (Late st Contact Info) Description 03/01/2025 11:00 AM EDT Appointment [facility] MRI [place] [address] [facility] [address] [place] [address] 03/01/2025 2:00 PM EDT Office Visit [facility] NEUROSURGERY [address] [facility] [address] [place] [address] Gaston Barnard MD [address] [facility] [address] [place] [address] 04/16/2025 1:00 PM EST Office Visit [facility] ORTHOPEDICS [facility]TS MEDICINE [address] [facility] [address] [place] [address] Brenton Hood MD [address] [facility] [address] [place] [address] 05/20/2025 3:00 PM EST Office Visit [facility] NEUROLOGY [address] [facility] [address] [place] [id number] Casi Starr, WAFER FABRICATION TECHNICIAN [address] [facility] [address] [place] [address] Health Maintenance Due Date Last Done Comments DXA SCAN 1954 LIPID PANEL 1954 TDAP/TD VACCINES (1 - Tdap) 1973 COLOGUARD 1999 COLON CANCER SCREENING 5 YEA R SIGMOIDOSCOPY 1999 CT COLONOGRAPHY 1999 FECAL OCCULT BLOOD TEST 1999 FIT Testing (1 year) 1999 Pneumococcal Vaccine 50+ (1 of 1 - PCV) 2004 ZOSTER VACCINE (1 of 2) 2004 ANNUAL WELLNESS VISIT 04/28/2017 HEPATITIS C SCREENING 04/28/2017 COLONOSCOPY 10/17/2024 10/17/2014 COLORECTAL CANCER SCREENING 10/17/2024 INFLUENZA VACCINE 01/11/2025 03/02/2024 COVID-19 Vaccine (2024-07 6 season) 2025 04/09/2022, 03/28/2021, 09/11/2020, Additional history exists MAMMOGRAM 03/19/2026 03/19/2024, 12/2023, 02/28/2023, Additional history exists Goals Goal Patient Goal Type Associated Problems Recent Progress Patient-Stated? Author Autogenera ivette Goal Care Plan Autogenerated Problem No Brenton Hood MD Medical Devices Implanted Type Area Hairspring Adjuster Device Identifier Shelf Expiration Date Model / Serial / Lot Kt Matrx Floseal Hemo Fast Prep 10ml - [id number] Implanted:Qty: 1 on 12/10/2019 by Gaston Barnard MD at [facility] Implant [facility] 08/15/2020 [id number] / / [id number] Sut/Anch Healix Adv Br W/Dynacord 4.5mm - [id number] Implanted:Qty: 1 on 08/24/2022 by Rajesh Engel Jr., MD at [facility] Implant Left: Shoulder DEPUY MITEK 01/10/2025 [id number] / / [id number] Sut/Anch Healixadvance Br Dynatape 5.5mm Wht - [id number] Implanted:Qty: 1 on 08/24/2022 by Rajesh Engel Jr., MD at [facility] Implant Left: Shoulder DEPUY MITEK 07/13/2024 [id number] / / [id number] Sut/Anch Healixadvance Br Dynatape 4.5mm Blk - [id number] Implanted:Qty: 1 on 08/24/2022 by Rajesh Engel Jr., MD at [facility] Implant Left: Shoulder DEPUY MITEK 11/10/2024 [id number] / / [id number] Sut/Anch Healixadvance Br Dynatape 5.5mm Blk/Lee Wht/Lee/Grn - [id number] Implanted:Qty: 1 on 08/24/2022 by Rajesh Engel Jr., MD at [facility] Implant Left: Shoulder DEPUY MITEK 05/12/2024 [id number] / / [id number] Sut/Anch Knotlss Healicoil Regenesorb 5.5mm - [id number] Implanted:Qty: 2 on 08/24/2022 by Rajesh Engel Jr., MD at [facility] Implant Left: Shoulder [employer] 03/26/2025 [id number] / / [id number] Hemost Abs Surgifoam Sz100 8x12 10mm - [id number] Implanted:Qty: 1 on 06/15/2023 by Gaston Barnard MD at [facility] Implant N/A: Spine Thoracic [employer] J [employer] J 1973 / / Kt Seal Hemos Abs Floseal Matrx Fast/Prep 10ml - [id number] Implanted:Qty: 1 on 06/15/2023 by Gaston Barnard MD at [facility] Implant N/A: Spine Thoracic [facility] [id number] 03/02/2024 [id number] / / [id number] Kt Ipg Wavewriter Alpha 32/Contct - [id number] - [id number] Implanted:Qty: 1 on 06/15/2023 by Gaston Barnard MD at [facility] Implant N/A: Spine Thoracic Sverve [facility] [id number] 03/09/2025 [id number] / [id number] Dev Contrl Tiss Stratafix Spiral Pdo Bidir 1 40y84tz - [id number] Implanted:Qty: 1 on 01/09/2025 by Brenton Hood MD at [facility] Implant Right: Knee [facility] [facility] [id number] 05/12/2026 [id number] / / [id number] Insrt Tib/Kn Triathlon Condy/Stbl X3 Sz2 9mm - [id number] Implanted:Qty: 1 on 01/09/2025 by Brenton Hood MD at [facility] Implant Right: Knee PAULY KENNY [id number] 02/20/2029 [id number] / / [id number] Baseplt Tib/Kn Triath Tritanium Sz2 - [id number] Implanted:Qty: 1 on 01/09/2025 by Brenton Hood MD at [facility] Implant Right: Knee PAULY KENNY [id number] 11/05/2029 [id number] / / [id number] Pat Triath Tritanium 82b05b42sm - [id number] Implanted:Qty: 1 on 01/09/2025 by Brenton Hood MD at [facility] Implant Right: Knee PAULY KENNY [id number] 09/11/2029 [id number] / / [id number] Comp Fem Triath Cr Cmtls Sz2 Rt - [id number] Implanted:Qty: 1 on 01/09/2025 by Brenton Hood MD at [facility] Implant Right: Knee PAULY KENNY [id number] 11/03/2029 [id number] / / [id number] Pauly Knee Triathlon Tritanium W/X3 - [id number] Implanted:Qty: 1 on 01/09/2025 by Brenton Hood MD at [facility] Implant PAULY KENNY CAPSTRYKER KNTRIATHLO NTRITANIUM X3 / / Ld Padl Coveredge 32 50cm - [id number] - [id number] Implanted:Qty: 1 on 06/15/2023 by Gaston Barnard MD at [facility] Lead N/A: Spine Thoracic Sverve KENNY 05/23/2025 [id number] / [id number] / Procedures Procedure Name Priority Date/Time Associated Diagnosis Comments XR KNEE 3+ VW W SUNRISE RIGHT Routine 02/19/2025 2:04 PM EDT Status post total right knee replacement XR KNEE 3+ VW W SUNRISE RIGHT Routine 01/29/2025 1:26 PM EDT Status post total right knee replacement CBC (NO DIFF) Routine 01/10/2025 7:53 AM EDT BASIC METABOLIC PANEL Routine 01/10/2025 7:53 AM EDT XR KNEE 1 OR 2 VW RIGHT STAT 01/09/2025 10:52 AM EDT ANESTHESIA PERIPHERAL BLOCK Routine 01/09/2025 9:22 AM EDT SPINAL Routine 01/09/2025 7:22 AM EDT [place] ARTHRP KNE CONDYLE&PLATU MEDIAL&LAT COMPARTMENTS 01/09/2025 7:04 AM EDT Primary osteoarthritis of right knee Special Needs SUPINE, TRIATHALON CR POCT GLUCOSE FINGERSTICK Routine 01/09/2025 6:35 AM EDT POTASSIUM Urgent 01/09/2025 6:34 AM EDT SCANNED - SLEEP STUDY EXTERNAL 01/09/2025 ECG 12-LEAD Routine 12/26/2024 12:46 PM EDT Primary osteoarthritis of right knee CBC AND DIFFERENTIAL Routine 12/26/2024 12:24 PM EDT Primary osteoarthritis of right knee CBC WITH AUTO DIFFERENTIAL Routine 12/26/2024 12:24 PM EDT Primary osteoarthritis of right knee NICOTINE AND METABOLITE, QUANT Routine 12/26/2024 12:24 PM EDT Primary osteoarthritis of right knee HEMOGLOBIN A1C Routine 12/26/2024 12:24 PM EDT Primary osteoarthritis of right knee APTT Routine 12/26/2024 12:24 PM EDT Primary osteoarthritis of right knee PROTIME-INR Routine 12/26/2024 12:24 PM EDT Primary osteoarthritis of right knee COMPREHENSIVE METABOLIC PANEL Routine 12/26/2024 12:24 PM EDT Primary osteoarthritis of right knee HM COLONOSCOPY Routine 10/17/2014 MAMMO SCREENING BILATERAL W CAD Routine 09/17/2014 12:59 PM EDT from Last 3 Months or Most Recently Relevant to Health Maintenance Results * XR Knee 3+ View With [place] Right (02/19/2025 2:04 PM EDT) Only the most recent of2 resultswithin the time period is included. Anatomical Region Laterality Modality Lower Extremities, Knee Right Xray Narrative 02/19/2025 2:40 PM EDT Indication: Status post right total knee arthroplasty Comparison: Todays xrays were compared to previous xrays from 01/29/2025 Knee films: Demonstrate well positioned knee arthroplasty components in satisfactory alignment without evidence of wear, loosening, subsidence, fracture, or osteolysis and No significant changes compared to prior radiographs. us Brenton Hood MD [facility] DIAGNOSTIC IM[facility] [place] [facility] Final Result * (ABNORMAL) CBC (No Diff) (01/10/2025 7:53 AM EDT) WBC 14.13(H) 3.40 - 10.80 10*3/mm3 01/10/2025 10:23 AM EDT [facility] RBC 4.12 3.77 - 5.28 10*6/mm3 01/10/2025 10:23 AM EDT [facility] Hemoglobin 12.6 12.0 - 15.9 g/dL 01/10/2025 10:23 AM EDT [facility] Hematocrit 37.7 34.0 - 46.6 % 01/10/2025 10:23 AM EDT [facility] MCV 91.5 79.0 - 97.0 fL 01/10/2025 10:23 AM EDT [facility] MCH 30.6 26.6 - 33.0 pg 01/10/2025 10:23 AM EDT [facility] MCHC 33.4 31.5 - 35.7 g/dL 01/10/2025 10:23 AM EDT [facility] RDW 13.8 12.3 - 15.4 % 01/10/2025 10:23 AM EDT [facility] RDW-SD 46.9 37.0 - 54.0 fl 01/10/2025 10:23 AM EDT [facility] MPV 9.1 6.0 - 12.0 fL 01/10/2025 10:23 AM EDT [facility] Platelets 247 140 - 450 10*3/mm3 01/10/2025 10:23 AM EDT [facility] Blood Venipuncture / Unknown 01/10/2025 7:53 AM EDT 01/10/2025 10:16 AM EDT [facility] Final Result [facility]
[address] [place] [address], * (ABNORMAL) Basic Metabolic Panel (01/10/2025 7:53 AM EDT) Glucose 122(H) 65 - 99 mg/dL 01/10/2025 11:00 AM EDT [facility] BUN 14.9 8.0 - 23.0 mg/dL 01/10/2025 11:00 AM EDT [facility] Creatinine 0.77 0.57 - 1.00 mg/dL 01/10/2025 11:00 AM EDT [facility] Sodium 132(L) 136 - 145 mmol/L 01/10/2025 11:00 AM EDT [facility] Potassium 3.7 3.5 - 5.2 mmol/L 01/10/2025 11:00 AM EDT [facility] Chloride 95(L) 98 - 107 mmol/L 01/10/2025 11:00 AM EDT [facility] CO2 28.4 22.0 - 29.0 mmol/L 01/10/2025 11:00 AM EDT [facility] Calcium 9.2 8.6 - 10.5 mg/dL 01/10/2025 11:00 AM EDT [facility] BUN/Creatinine Ratio 19.4 7.0 - 25.0 01/10/2025 11:00 AM EDT [facility] Anion Gap 8.6 5.0 - 15.0 mmol/L 01/10/2025 11:00 AM EDT [facility] eGFR 83.1 >60.0 mL/min/1.7 3 01/10/2025 11:00 AM EDT [facility] Blood Venipuncture / Unknown 01/10/2025 7:53 AM EDT 01/10/2025 10:16 AM EDT [facility] - 01/10/2025 11:00 AM EDT [...] Hood MD LAB BLOOD ORDERABLES Final Result [facility]
[address] [place] [address], * XR Knee 1 or 2 View Right (01/09/2025 10:52 AM EDT) Anatomical Region Laterality Modality Lower Extremities, Knee Right Radiogra phic Imaging 01/09/2025 11:0 9 AM EDT Impressions 01/09/2025 11:09 AM EDT Impression: Expected changes of recent total knee arthroplasty. Electronically Signed: Dann Schwab MD 01/09/2025 11:09 AM EDT Workstation ID: [id number] Narrative 01/09/2025 11:09 AM EDT XR KNEE [...] MD 01/09/2025 11:09 AM EDT Workstation ID: [id number] us Brenton Hood MD [facility] DI[facility]NOSTIC [facility] Final Result * BH AN PERIPHERAL BLOCK CATHETER (01/09/2025 [...] request and post-op pain management Performed by GLOVE MAKER/CAA: Hans Garcia, GLOVE MAKER Assisted by: Casi Snow RN Preanesthetic Checklist [...] catheter connection. Performed by: Hans Garcia CRNA us Maurice Brownlee MD ANESTHESIA ORDERABLES Edited Re [...] timeout performed Spinal Block Prep: Patient Position:sitting Crinkling Machine Operator:cap, gloves, sterile barriers and mask Prep:Chloraprep Patient [...] flow was obtained and LA was injected: us Maurice Brownlee MD ANESTHESIA ORDERABLES Final Res ult * POC Glucose Once (01/09/2025 6:35 AM EDT) Glucose 85 70 - 130 mg/dL 01/09/2025 6:36 AM EDT [facility] Blood 01/09/2025 6:35 AM EDT 01/09/2025 6:36 AM EDT Brenton Hood MD POINT OF CARE TEST ORDERABL ES Final Result Performing Organization Address [facility] Co de Phone Number [facility]
[address] [place] [address], * Potassium (01/09/2025 6:34 AM EDT) Potassium 3.9 3.5 - 5.2 mmol/L 01/09/2025 6:53 AM EDT [facility] Blood Line / Unknown 01/09/2025 6: 34 AM EDT 01/09/2025 6:34 AM EDT us Maurice Brownlee MD LAB BLOOD ORDERABLES Final Resu lt [facility]
[address] [place] [address], * Sleep Study External Scan (01/09/2025) [facility] SLEEP CENTER ORDERABLES Final Result * ECG 12 Lead (12/26/2024 12:46 PM EDT) QT Interval 420 ms ECG QTC Interval 426 ms ECG 12/26/2024 12:4 6 PM EDT 12/28/2024 3:50 PM EDT Narrative ECG - 12/28/2024 3:50 PM EDT Test Reason : pre-op surgery Blood Pressure : */* mmHG Vent. Rate : 62 BPM Atrial Rate : 62 BPM P-R Int : 158 ms QRS Dur : 80 ms QT Int : 420 ms P-R-T Axes : 59 57 64 degrees QTcB Int : 426 ms Normal sinus rhythm Normal ECG When compared with ECG of 08-Jun-2023 16:04, No significant change was found Confirmed by ANGEL LUIS DUMONT ([id number]) on 12/28/2024 3:50:33 PM Referred By: Confirmed By: ANGEL LUIS DUMONT Procedure Note Angel Luis Dumont MD - 12/28/2024 Test Reason : pre-op surgery Blood Pressure : */* mmHG Vent. Rate : 62 BPM Atrial Rate : 62 BPM P-R Int : 158 ms QRS Dur : 80 ms QT Int : 420 ms P-R-T Axes : 59 57 64 degrees QTcB Int : 426 ms Normal sinus rhythm Normal ECG When compared with ECG of 08-Jun-2023 16:04, No significant change was found Confirmed by ANGEL LUIS DUMONT ([id number]) on 12/28/2024 3:50:33 PM Referred By: Confirmed By: ANGEL LUIS DUMONT Brenton Hood MD ECG ORDERABLES Final Resul t ECG * Nicotine & Metabolite, Quant (12/26/2024 12:24 PM EDT) [facility] Nicotine <1.0 ng/mL 01/02/2025 3:10 PM EDT [facility] Comment: This test was developed and its performance characteristics determined by [facility]. It has not been cleared or approved by the Food and Drug Administration. Nicotine levels greater than 2.0 are consistent with the use of tobacco or tobacco cessation products. Cotinine <1.0 ng/mL 01/02/2025 3:10 PM EDT [facility] Comment: This test was developed and its performance characteristics determined by [facility]. It has not been cleared or approved by the Food and Drug Administration. Cotinine levels greater than 20.0 are consistent with the use of tobacco or tobacco cessation products. Blood Venipuncture / Unknown 12/26/2024 12:24 PM EDT 12/26/2024 12:44 PM EDT Narrative [facility] - 01/02/2025 3:10 PM EDT Performed at: [address] [place] [id number] Vehicle Monitor Technician: Yadira Mata MD, Phone: [phone] us Brenton Hood MD LAB BLOOD ORDERABLES Final Result Performing Organization Address City/State/[facility] Co de Phone Number [facility] [address] [place] [address], * (ABNORMAL) CBC Auto Differential (12/26/2024 12:24 PM EDT) [facility] WBC 5.59 3.40 - 10.80 10*3/mm3 12/26/2024 12:49 PM EDT [facility] RBC 4.45 3.77 - 5.28 10*6/mm3 12/26/2024 12:49 PM EDT [facility] Hemoglobin 13.4 12.0 - 15.9 g/dL 12/26/2024 12:49 PM EDT [facility] Hematocrit 41.2 34.0 - 46.6 % 12/26/2024 12:49 PM EDT [facility] MCV 92.6 79.0 - 97.0 fL 12/26/2024 12:49 PM EDT [facility] MCH 30.1 26.6 - 33.0 pg 12/26/2024 12:49 PM EDT [facility] MCHC 32.5 31.5 - 35.7 g/dL 12/26/2024 12:[facility] RDW 14.2 12.3 - 15.4 % 12/26/2024 12:49 PM EDT [facility] RDW-SD 48.3 37.0 - 54.0 fl 12/26/2024 12:[facility] MPV 8.7 6.0 - 12.0 fL 12/26/2024 12:49 [facility] Platelets 263 140 - 450 10*3/mm3 12/26/2024 12:49 [facility] Neutrophil % 73.0 42.7 - 76.0 % 12/26/2024 12:49 PM [facility] Lymphocyte % 15.2(L) 19.6 - 45.3 % 12/26/2024 12:49 [facility] Monocyte % 9.7 5.0 - 12.0 % 12/26/2024 12:49 PM [facility] Eosinophil % 1.4 0.3 - 6.2 % 12/26/2024 12:49 [facility] Basophil % 0.5 0.0 - 1.5 % 12/26/2024 12:49 PM EDT [facility] Immature Grans % 0.2 0.0 - 0.5 % 12/26/2024 12:49 [facility] Neutrophils, Absolute 4.08 1.70 - 7.00 10*3/mm3 12/26/2024 12:49 [facility] Lymphocytes, Absolute 0.85 0.70 - 3.10 10*3/mm3 12/26/2024 12:49 PM EDT [facility] Monocytes, Absolute 0.54 0.10 - 0.90 10*3/mm3 12/26/2024 12:49 PM EDT [facility] Eosinophils, Absolute 0.08 0.00 - 0.40 10*3/mm3 12/26/2024 12:49 PM EDT [facility] Basophils, Absolute 0.03 0.00 - 0.20 10*3/mm3 12/26/2024 12:49 PM EDT [facility] Immature Grans, Absolute 0.01 0.00 - 0.05 10*3/mm3 12/26/2024 12:49 PM EDT [facility] nRBC 0.0 0.0 - 0.2 /100 WBC 12/26/2024 12:49 PM EDT [facility] Blood Venipuncture / Unknown 12/26/2024 12:24 PM EDT 12/26/2024 12:44 PM EDT Brenton Hood MD LAB BLOOD ORDERABLES Final Result [facility]
[address] [place] [address], [place] [phone] * APTT (12/26/2024 12:24 PM EDT) PTT 25.5 22.0 - 39.0 seconds 12/26/2024 1:03 PM EDT [facility] Blood Venipuncture / Unknown 12/26/2024 12:24 PM EDT 12/26/2024 12:44 PM EDT Narrative [facility] - 12/26/2024 1:03 PM EDT PTT = The equivalent PTT values for the therapeutic range of heparin levels at 0.3 to 0.5 U/ml are 60 to 70 seconds. us Brenton Hood MD LAB BLOOD ORDERABLES Final Result Performing Organization Address City/[facility]/ZIP Co de Phone Number [facility]
[address] [place] [address], [place] [phone] * Protime-INR (12/26/2024 12:24 PM EDT) Protime 13.4 12.2 - 15.3 Seconds 12/26/2024 1:03 PM EDT [facility] INR 0.97 0.89 - 1.12 12/26/2024 1:03 PM EDT [facility] Blood Venipuncture / Unknown 12/26/2024 12:24 PM EDT 12/26/2024 12:44 PM EDT Brenton Hood MD LAB BLOOD ORDERABLES Final Result Performing Organization Address [facility] Co de Phone Number [facility]
[address] [place] [address], * Hemoglobin A1c (12/26/2024 12:24 PM EDT) Hemoglobin A1C 5.56 4.80 - 5.60 % 12/26/2024 1:07 PM EDT [facility] Blood Venipuncture / Unknown 12/26/2024 12:24 PM EDT 12/26/2024 12:44 PM EDT Narrative [facility] - 12/26/2024 1:07 PM EDT Hemoglobin A1C Ranges: Increased Risk for Diabetes 5.7% to 6.4% Diabetes >= 6.5% Diabetic Goal < 7.0% Brenton Hood MD LAB BLOOD ORDERABLES Final Result [facility]
[address] [place] [address], * (ABNORMAL) Comprehensive metabolic panel (12/26/2024 12:24 PM EDT) Glucose 95 65 - 99 mg/dL 12/26/2024 1:08 PM EDT [facility] BUN 15.1 8.0 - 23.0 mg/dL 12/26/2024 1:08 PM [facility] Creatinine 0.69 0.57 - 1.00 mg/dL 12/26/2024 1:08 PM [facility] Sodium 134(L) 136 - 145 mmol/L 12/26/2024 1:08 PM [facility] Potassium 4.1 3.5 - 5.2 mmol/L 12/26/2024 1:08 PM [facility] Chloride 96(L) 98 - 107 mmol/L 12/26/2024 1:08 PM [facility] CO2 27.4 22.0 - 29.0 mmol/L 12/26/2024 1:08 PM [facility] Calcium 9.8 8.6 - 10.5 mg/dL 12/26/2024 1:08 PM [facility] Total Protein 6.3 6.0 - 8.5 g/dL 12/26/2024 1:08 PM [facility] Albumin 4.4 3.5 - 5.2 g/dL 12/26/2024 1:08 PM [facility] ALT (SGPT) 25 1 - 33 U/L 12/26/2024 1:08 PM [facility] AST (SGOT) 31 1 - 32 U/L 12/26/2024 1:08 PM [facility] Alkaline Phosphatase 60 39 - 117 U/L 12/26/2024 1:08 PM [facility] Total Bilirubin 0.3 0.0 - 1.2 mg/dL 12/26/2024 1:08 PM [facility] Globulin 1.9 gm/dL 12/26/2024 1:08 PM [facility] Comment:Calculated Result A/G Ratio 2.3 g/dL 12/26/2024 1:08 PM [facility] BUN/Creatinine Ratio 21.9 7.0 - 25.0 12/26/2024 1:08 PM [facility] Anion Gap 10.6 5.0 - 15.0 mmol/L 12/26/2024 1:08 PM EDT [facility] eGFR 93.5 >60.0 mL/min/1.7 3 12/26/2024 1:08 PM EDT [facility] Blood Venipuncture / Unknown 12/26/2024 12:24 PM EDT 12/26/2024 12:44 PM EDT Narrative [facility] - 12/26/2024 1:08 PM EDT GFR Categories in Chronic Kidney Disease [...] does not include race as a factor Brenton Hood MD LAB BLOOD ORDERABLES Final Result [facility]
[address] [place] [address], * COLONOSCOPY (10/17/2014) Colonoscopy complete dr enriquez [facility] Provider HEALTH MAINTENANCE Final Result * MAMMOGRAPHY SCREENING BILATERAL (09/17/2014 12:59 PM EDT) Anatomical Region Laterality Modality Breast Bilateral Mammography 09/17/2014 12:5 9 PM EDT Narrative 09/25/2014 8:44 AM EDT ROUTINE SCREENING MAMMOGRAM HISTORY: 59-year-old female for routine screening IMAGE COMPARISON: 10/22/2011 TECHNIQUE: Bilateral full field digital mammography was performed in both 2 and 3-dimensional acquisitions. FINDINGS: There are scattered areas of fibroglandular density. Reduction mastopexy changes are present bilaterally. There are bilateral coarse benign calcifications consistent with fat necrosis. A round 7 mm subareolar mass is seen on the left which may represent a forming well cyst. Ultrasound is recommended. The exam is otherwise stable. There is no worrisome mass, group of calcifications, or architectural distortion to suggest malignancy. IMPRESSION- No findings suspicious for malignancy. 7 mm mass in the left subareolar region BI-RADS 0 INCOMPLETE- NEEDS ADDITIONAL IMAGING EVALUATION RECOMMENDATION: Ultrasound CAD was used. The standard false negative rate of mammography is between 10 and 25%. Complex patterns or increased breast density will markedly elevate the false negative rate of mammography. If there is a palpable area of concern, biopsy should be considered regardless of imaging findings. A letter, in lay terminology, with the results of this exam will be mailed to the patient. 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 WILL - SCAN 12/26/2024 12:12 PM PT HAS ONE NOT ON FILE * CPR (Attempt to Resuscitate) (Latest Code Status on File) Date Activated Date Inactivated Comments 01/09/2025 11:19 AM 01/10/2025 6:20 PM Question Answer Comments Code Status (Patient has no pulse and is not breathing): CPR (Attempt to Resuscitate) Medical Interventions (Patie nt has pulse or is breathing): Full Support * CPR (Attempt to Resuscitate) Date Activated Date Inactivated Comments 04/21/2019 6:00 PM 04/26/2019 4:23 PM Question Answer Comments Code Status (Patient has no pulse and is not breathing): CPR (Attempt to Resuscitate) Medical Interventions (Patie nt has pulse or is breathing): Full Level Of Support Discussed With: Patient Care Teams Business Control Manager Relationship Specialty Start Date End Date Angel Luis Jack MD [address] [place] [address] [address] [place] [address] PCP - General 01/27/15
[2025-02-25 17:37] LABS: Hematocrit 43.1 % (37.0-47.0); Hemoglobin 14.7 g/dL (12.2-16.2); Immature Granulocytes % 0.3 %; Mean Corpuscular HGB Conc 34.1 g/dL (31.8-35.4); Mean Corpuscular Hemoglobin 30.4 pg (27.0-31.2); Mean Corpuscular Volume 89.2 fl (81-99); Nucleated Red Blood Cells % 0 %; Platelet Count 283 K/mm3 (142-424); Red Blood Count 4.83 M/mm3 (4.20-5.40); Red Cell Distribution Width-SD 41.3 fL; White Blood Count 8.7 K/mm3 (4.8-10.8)
[2025-02-25 18:07] LABS: Alanine Aminotransferase 24 U/L (12-78); Albumin Level 4.7 g/dl (3.5-5.0); Albumin/Globulin Ratio 1.6 (1.1-1.8); Alkaline Phosphatase 86 U/L (38-126); Anion Gap 12.4 mEq/L (5-15); Aspartate Amino Transferase 40 U/L (14-36); Bilirubin,Total 0.6 mg/dl (0.2-1.3); Blood Urea Nitrogen 12 mg/dl (7-17); Calcium 9.9 mg/dl (8.4-10.2); Carbon Dioxide 25 mmol/L (22.0-30.0); Chloride 96 mmol/L (98-107); Creatinine Clearance Estimated 60 mL/min (50-200); Creatinine,Serum 0.60 mg/dl (0.52-1.04); Estimated Glomerular Filt Rate 99 ml/min (>60); GFR (African American) 120 ML/MIN (>60); Globulin 2.9 g/dL (1.3-3.2); Glucose 108 mg/dl (74-100); Potassium 3.4 mmoL/L (3.5-5.1); Sodium 130 mmol/L (136-145); Total Protein,Serum 7.6 g/dl (6.3-8.2)
[2025-02-25 18:19] LABS: Troponin I < 0.01 ng/ml (0.00-0.034)
[2025-02-25] MEDS: 0.9 % SODIUM CHLORIDE 50 ML VIAL IV (18:40)
[2025-02-25] MEDS: IOPAMIDOL-370 (76%);100ML BOTTLE 75 ML IV (18:41)
[2025-02-25] MEDS: KETOROLAC 15MG/ML VIAL 15 MG IV (18:41)
[2025-02-25] MEDS: SODIUM CHLORIDE 0.9% 10ML SYR (RAD ONLY) 10 ML IV (18:41)
[2025-02-25] MEDS: ONDANSETRON 4MG/2ML VIAL 4 MG IV ×2 (18:41→19:40)
[2025-02-25] MEDS: ASPIRIN 81MG CHEWABLE TABLET 324 MG PO (18:41)
[2025-02-25] MEDS: 0.9 % SODIUM CHLORIDE 1000ML 1,000 ML 999 ML IV (18:42)
--- NOTE | 2025-02-25 18:57 | PC.NURSE ---
pt returned from CT
[2025-02-25] MEDS: METOPROLOL SUCCINATE XL 50MG TABLET 50 MG PO (19:40)
[2025-02-25 20:42] LABS: Microscopic, Urine URINE MICROSCOPIC (MICROSCOPIC)
[2025-02-25] MEDS: PROCHLORPERAZINE 10MG/2ML VIAL 5 MG IV (20:45)
[2025-02-25 20:53] LABS: Bilirubin,Urine Negative (Negative); Color,Urine YELLOW (Yellow); Glucose,Urine (UA) Negative (Negative); Ketones,Urine 1+ (Negative); Leukocyte Esterase,Urine Negative (Negative); PH,Urine 7.5 (5.0-8.5); Protein,Urine Negative (Negative); Specific Gravity, Urine 1.010 (1.005-1.030); Urobilinogen,Urine 0.2 EU/dl (0.2)
[2025-02-25 21:19] LABS: RBC,Urine Occasional #/hpf (0-3)
[2025-02-25 21:20] LABS: Bacteria,Urine 1+ /lpf
[2025-02-25 21:35] LABS: Troponin I < 0.01 ng/ml (0.00-0.034)
== END 2025-02-25 22:05 | disposition home or self-care (01) ==
PROVIDERS: Nurse Practitioner Family; Emergency Provider Student in an Organized Health Care Education/Training Program; PCP Internal Medicine
DX: R07.9 Chest pain, unspecified (principal); R10.31 Right lower quadrant pain; E87.1 Hypo-osmolality and hyponatremia
CPT/HCPCS: 71275; 74177; 80053; 81001; 84484; 85025; 93005; 96361; 96374; 96375; 96376; 99285; J0780; J1885; J2405; J7030; Q9967

== ENCOUNTER 2025-02-28 15:00 | Outpatient (RCR) | payer MEDICARE, SELFPAY | END 2025-02-28 23:59 | disposition home or self-care (01) | LOC: PT 15:00 | PROVIDERS: PCP Podiatrist; Visit Provider Physician Assistant Surgical | DX: M17.11 Unilateral primary osteoarthritis, right knee (principal) | CPT/HCPCS: 97016; 97110; 97530 ==